=== PATIENT | female | born 1960 | race Caucasian/White ===

== ENCOUNTER 2016-06-17 15:58 | Outpatient (RCR) | payer BC ==
--- OUTSIDE RECORDS SUMMARY | 2016-06-03 08:06 | XMS REPORT | Continuity of Care Document ---
Author Author [facility] Organization [facility] Address Unknown Phone Unavailable Care Team Providers Care Inspector Clip On Sunglasses Name Role Phone Ifrah Curran PCP [phone] Source Comments Some departments are not documenting in the electronic medical record. If you do not see the information that you expected, contact Release of Information in the Health Information Management department at [phone] for further assistance in locating additional records.[facility] Active Allergies and Adverse Reactions Allergen Noted Date Severity Reactions Comments Pneumococcal Vaccine 05/05/2014 UNKNOWN Current Medications Prescription Sig. Disp. Refills Start End Date Status Date omeprazole DR(+) Take 40 mg by mouth Active (PRILOSEC) 40 mg capsule daily. ALPRAZolam (XANAX) 0.25 Take 0.25 mg by mouth at Active mg tablet bedtime as needed. citalopram (CELEXA) 40 mg Take 40 mg by mouth Active tablet daily. insulin glargine (LANTUS) Inject 30 Units into Active 100 unit/mL injection area(s) as directed at bedtime daily. Diltiazem HCl (MATZIM LA) Take by mouth. Active 360 mg Tb24 metFORMIN (GLUCOPHAGE) Take 500 mg by mouth Active 500 mg tablet daily. metoprolol XL (TOPROL XL) Take 100 mg by mouth Active 100 mg tablet daily. valsartan (DIOVAN) 320 mg Take 320 mg by mouth Active tablet daily. aspirin 81 mg chewable Take 81 mg by mouth Active tablet daily. estradiol(+) (MINIVELLE) Apply 1 Patch to top of Active 0.075 mg/24 hr patch skin as directed twice weekly. hydrochlorothiazide Take 25 mg by mouth Active (HYDRODIURIL) 25 mg daily. tablet liraglutide(+) (VICTOZA) Inject 1.8 mg into Active 0.6 mg/0.1 mL (18 mg/3 area(s) as directed mL) pnij daily. Active Problems Not on file Social History Tobacco Use Types Packs/Day Years Used Date Never Smoker Smokeless Tobacco: Never Used Last Filed Vital Signs Vital Sign Reading Time Taken Blood Pressure 130/86 05/10/2014 1:13 PM CYBER SECURITY CONSULTANT Pulse 96 05/10/2014 1:13 PM CYBER SECURITY CONSULTANT Temperature 36.9 C (98.5 F) 05/10/2014 1:10 PM CYBER SECURITY CONSULTANT Respiratory Rate 18 05/10/2014 1:10 PM CYBER SECURITY CONSULTANT Height - - Weight 95.074 kg (209 lb 9.6 oz) 05/10/2014 1:10 PM CYBER SECURITY CONSULTANT Body Mass Index - - Oxygen Saturation - - Plan of Care Health Maintenance Due Date Last Done Comments Physical (Comprehensive) 1969 Exam Pertussis Vaccine 1973 Tetanus Vaccine 11/11/1979 Cervical Cancer Screening 11/11/1983 Breast Cancer Screening 2002 Colorectal Cancer 2012 Screening Influenza Vaccine 12/27/2015 Results from Last 3 Months Not on file
[~2016-06-17 15:58] MED LIST: CALC-722 PO; CITA40TA19 PO; CYAN10007 PO; DILT360T PO; ESTR1PAT81 TD; HYDR25TA4 PO; INSU100I10 SQ; LIRA0.6P SQ; METF500T8 PO; METO100T5 PO; MTF500T PO; OMEP20TA2 PO; OMEP40CA36 PO; PEDI1TAB36 PO; VALS320T8 PO
== END 2016-06-17 16:27 | disposition home or self-care (01) ==
PROVIDERS: ATTEND Orthopaedic Surgery
DX: M75.02 Adhesive capsulitis of left shoulder (principal)

== ENCOUNTER 2017-07-30 16:14 | Outpatient (RCR) | payer BC | END 2017-08-07 13:40 | disposition home or self-care (01) | PROVIDERS: ATTEND Nurse Practitioner Family | DX: Z47.89 Encounter for other orthopedic aftercare (principal); L90.5 Scar conditions and fibrosis of skin ==

== ENCOUNTER 2018-03-09 06:15 | Inpatient (IN) | payer BC ==
[~2018-03-09] VITALS: Ht 167.6 cm; Wt 94.8 kg
--- OUTSIDE RECORDS SUMMARY | 2018-03-09 06:21 | XMS REPORT ---
Author Author CHRISTI Bacon Organization [facility] Address [address] [place] [address] Care Team Providers Care Cabana Attendant Name Role Phone CHRISTI Bacon Unavailable PROBLEMS Type Condition ICD9-CM Code [id number] Code Onset Dates Condition Status SNOMED Code Problem Acquired hypothyroidism E03.9 Active 024329426 Problem Essential hypertension I10 Active [id number] ALLERGIES No Known Allergies ENCOUNTERS Encounter Location Date Diagnosis [facility] [id number] [place] [id number] Jun, Subacute maxillary sinusitis J01.00 and Otalgia of left ear H92.02 [facility] [id number] [place] [phone] May, Cough R05 and Acute non-recurrent maxillary sinusitis J01.00 [facility], [place] [address] [address] Jan, Encounter for immunization Z23 [facility] [place] [id number] [place] [phone] Mar, [place] [id number] [place] [phone] Mar, [place] [id number] [place] [phone] Feb, [place] [address] [phone] Feb, IMMUNIZATIONS Vaccine Route Administration Date Status DEPO MEDROL 80 MG/ML IM Intramuscular Jun 16, 2017 Administered SOCIAL HISTORY Never Assessed REASON FOR VISIT cough [place] EISENBERG PLAN OF CARE Activity Details Follow Up prn Reason: VITAL SIGNS Height 66 in 2017-06-16 Weight 180 lbs 2017-06-16 Temperature 98.2 degrees Fahrenheit 2017-06-16 Heart Rate 78 bpm 2017-06-16 Respiratory Rate 18 2017-06-16 BMI 29.05 kg/m2 2017-06-16 Blood pressure systolic 146 mmHg 2017-06-16 Blood pressure diastolic 78 mmHg 2017-06-16 MEDICATIONS Medication Instructions Dosage Frequency Start Date End Date Duration Status Benzonatate 200 mg Orally Three times a day prn cough 1 capsule May 07 days Active Lipitor Active Levothyroxine Sodium Active Metoprolol-HCTZ ER Active Victoza Active RESULTS No Results PROCEDURES Procedure Date Ordered Result Body Site DEPO MEDROL 80 MG/ML Jun 16, 2017 THER/PROPH/DIAG INJ, SC/IM Jun 16, 2017 INSTRUCTIONS MEDICATIONS ADMINISTERED No Known Medications MEDICAL (GENERAL) HISTORY Type Description Date Medical History hypertension Medical History hypothyroidism Medical History Hx of sinusitis Surgical History Gastric sleeve 2015 Surgical History Hysterectomy 2004 Surgical History Thyroidectomy 2015 Surgical History Gallbladder removal 1989 Surgical History Melanoma 2004
--- OUTSIDE RECORDS SUMMARY | 2018-03-09 06:21 | XMS REPORT | Clinical Summary ---
Author Author [facility] Organization [facility] Address Unknown Phone Unavailable Care Team Providers Care Drier And Grinder Tender Name Role Phone PCP Unavailable Allergies No Known Allergies Current Medications Prescription Sig. Disp. Refills Start End Date Status Date citalopram (CELEXA) 20 MG Take by mouth. 30 09/05/19 Active tablet 15 metoprolol tartrate Take by mouth. 60 09/07/19 Active (LOPRESSOR) 25 MG tablet 15 levothyroxine (SYNTHROID, Take by mouth. 30 06/18/19 Active LEVOTHROID) 100 MCG 15 tablet hydrochlorothiazide Take by mouth. 90 04/03/20 Active (HYDRODIURIL) 25 MG 14 tablet MINIVELLE 0.05 mg/24 hr 11 04/11/20 Active 15 VICTOZA 3-HUGO 0.6 mg/0.1 2 04/18/20 Active mL (18 mg/3 mL) PnIj 15 omega 3 fatty acids Take 1,000 mg by mouth Active 500-100 mg capsule daily. calcium carbonate-vitamin Chew. Active D3 600 mg (1,500 mg)-800 unit Chew metroNIDAZOLE Apply topically 2 (two) 45 g 3 05/28/19 Active (METROCREAM) 0.75 % times a day. 16 creamIndications: Rosacea Active Problems Problem Noted Date Rosacea 05/28/2015 Malignant melanoma of skin of trunk, except scrotum (HCC) 09/13/2014 Benign neoplasm of skin 09/13/2014 Overview: ICD-10 conversion Actinic keratosis 09/13/2014 Family History Medical History Relation Name Comments Cancer Father Melanoma Relation Name Status Comments Father Social History Tobacco Use Types Packs/Day Years Used Date Never Smoker Sex Assigned at Date Recorded Not on file Last Filed Vital Signs Vital Sign Reading Time Taken Blood Pressure 140/89 09/13/2014 1:52 PM CDT Pulse 85 09/13/2014 1:52 PM CDT Temperature - - Respiratory Rate - - Oxygen Saturation - - Inhaled Oxygen - - Concentration Weight 81.2 kg (179 lb) 09/13/2014 1:52 PM CDT Height 167.6 cm (5' 6") 09/13/2014 1:52 PM CDT Body Mass Index 28.89 09/13/2014 1:52 PM CDT Plan of Treatment Health Maintenance Due Date Last Done Comments Hepatitis C Screen 1962 Td # 1962 Pneumococcal Immunization 1981 19-64 Highest Risk# (1 of 3 - PCV13) Cervical Cancer Screening 11/11/1983 via Pap Smear Colorectal Screening via 2012 Colonoscopy Mammogram Screening 2012 Zoster Vaccine# (1 of 2) 2012 Influenza Vaccine (#1) 2018 Results Not on filefrom Last 3 Months
--- OUTSIDE RECORDS SUMMARY | 2018-03-09 06:21 | XMS REPORT | Clinical Summary ---
Author Author [facility] Organization [facility] Address Unknown Phone Unavailable Care Team Providers Care Rhinestone Setter Name Role Phone Torrey Mccabe MD Unavailable Eleonora Curran MD PCP Source Comments Some departments are not documenting in the electronic medical record. If you do not see the information that you expected, contact Release of Information in the Health Information Management department at [phone] for further assistance in locating additional records.[facility] Allergies Active Allergy Reactions Severity Noted Date Comments Pneumococcal Vaccine UNKNOWN 05/05/2014 Current Medications Prescription Sig. Disp. Refills Start [...] pnij daily. Active Problems Not on file Family History Medical History Relation Name Comments Cancer Father Diabetes Father Hypertension Father Cancer Maternal Grandfather Diabetes Maternal Grandfather Hypertension Maternal Grandfather Diabetes Mother Hypertension Mother Hypertension Sister Relation Name Status Comments Father Maternal Grandfather Mother Sister Social History Tobacco Use Types Packs/Day Years Used Date Never Smoker Smokeless Tobacco: Never Used Sex Assigned at Date Recorded Not on file Last Filed Vital Signs Vital Sign Reading Time Taken Blood Pressure 130/86 05/10/2014 1:13 PM COMMERCIAL FISHING VESSEL OPERATOR Pulse 96 05/10/2014 1:13 PM COMMERCIAL FISHING VESSEL OPERATOR Temperature 36.9 C (98.5 F) 05/10/2014 1:10 PM COMMERCIAL FISHING VESSEL OPERATOR Respiratory Rate 18 05/10/2014 1:10 PM COMMERCIAL FISHING VESSEL OPERATOR Oxygen Saturation - - Inhaled Oxygen - - Concentration Weight 95.1 kg (209 lb 9.6 oz) 05/10/2014 1:10 PM COMMERCIAL FISHING VESSEL OPERATOR Height - - Body Mass Index - - Plan of Treatment Health Maintenance Due Date Last Done Comments HEPATITIS C SCREENING 1962 PHYSICAL (COMPREHENSIVE) 1969 EXAM PERTUSSIS VACCINE 1973 HIV SCREENING 1977 TETANUS VACCINE 11/11/1979 CERVICAL CANCER SCREENING 1992 BREAST CANCER SCREENING 2002 COLORECTAL CANCER 2012 SCREENING SHINGLES RECOMBINANT 2012 VACCINE (1 of 2) INFLUENZA VACCINE 11/25/2017 Results Not on filefrom Last 3 Months
--- OUTSIDE RECORDS SUMMARY | 2018-03-09 06:21 | XMS REPORT ---
Author Author CHRISTI Bacon [facility] Address [address] [place] [address] Care Team Providers Care Postie Name Role Phone CHRISTI Bacon Unavailable PROBLEMS Type Condition ICD9-CM Code [id number] Code Onset Dates Condition Status SNOMED Code Problem Acquired hypothyroidism E03.9 Active 274510936 Problem Essential hypertension I10 Active [id number] ALLERGIES No Known Allergies ENCOUNTERS Encounter Location Date Diagnosis [facility] [place] [address] [id number] Jun, Subacute maxillary sinusitis J01.00 and Otalgia of left ear H92.02 [facility] [place] [id number] [place] [id number] May, Cough R05 and Acute non-recurrent maxillary sinusitis J01.00 [place] [address] [address] Jan, Encounter for immunization Z23 [facility] [id number] [place] [phone] Mar, [place] [id number] [place] [phone] Mar, [place] [id number] [place] [phone] Feb, [place] [address] [address] Feb, IMMUNIZATIONS No Known Immunizations SOCIAL HISTORY Never Assessed REASON FOR VISIT sinus congestion-[place] EISENBERG PLAN OF CARE Activity Details Follow Up prn Reason: VITAL SIGNS Height 66 in 2017-07-03 Weight 189.4 lbs 2017-07-03 Temperature 98.1 degrees Fahrenheit 2017-07-03 Heart Rate 80 bpm 2017-07-03 Respiratory Rate 18 2017-07-03 BMI 30.57 kg/m2 2017-07-03 Blood pressure systolic 164 mmHg 2017-07-03 Blood pressure diastolic 97 mmHg 2017-07-03 MEDICATIONS Medication Instructions Dosage Frequency Start Date End Date Duration Status Biaxin XL 500 mg Orally twice a day 1tablets with food 12h Jun, Jun, 14 days Active Wellbutrin Active Levothyroxine Sodium Active Metoprolol-HCTZ ER Active Lipitor Active Victoza Active PredniSONE 20 mg Orally Once a day with food 3 tablets x 3 days, 2 tablets x 3 days, then 1 tab x 2 days 8 days Active RESULTS No Results PROCEDURES No Known procedures INSTRUCTIONS MEDICATIONS ADMINISTERED No Known Medications MEDICAL (GENERAL) HISTORY Type Description Date Medical History hypertension Medical History hypothyroidism Medical History Hx of sinusitis Surgical History Gastric sleeve 2015 Surgical History Hysterectomy 2004 Surgical History Thyroidectomy 2015 Surgical History Gallbladder removal 1989 Surgical History Melanoma 2004
--- OUTSIDE RECORDS SUMMARY | 2018-03-09 06:22 | XMS REPORT ---
Author Author LENNIE PACHECO Organization [facility] Address [address] [place] [address] Care Team Providers Care Wire Taper Name Role Phone LENNIE PACHECO Unavailable PROBLEMS Type Condition ICD9-CM Code [id number] Code Onset Dates Condition Status SNOMED Code Problem Acquired hypothyroidism E03.9 Active 544424845 Problem Essential hypertension I10 Active 02015997 ALLERGIES No Information ENCOUNTERS Encounter Location Date Diagnosis [facility] [address] [id number] Jun, Subacute maxillary sinusitis J01.00 and Otalgia of left ear H92.02 [facility] [address] [id number] May, Cough R05 and Acute non-recurrent maxillary sinusitis J01.00 [place] [address] [address] Jan, Encounter for immunization Z23 [place] [address] [address] Mar, [place] [address] [phone] Mar, [place] [address] [phone] Feb, [place] [address] [address] Feb, IMMUNIZATIONS Vaccine Route Administration Date Status FLUARIX QUAD (3 AND UP) 2017 IM Intramuscular Feb 04, 2017 Administered ZOSTER (ZOSTAVAX) SC Subcutaneous Feb 04, 2017 Administered SOCIAL HISTORY Never Assessed REASON FOR VISIT Immunization(s) PLAN OF CARE VITAL SIGNS MEDICATIONS No Known Medications RESULTS No Results PROCEDURES Procedure Date Ordered Result Body Site FLUARIX QUAD (3 & UP)-GSK-2015 Feb 04, 2017 ZOSTER (ZOSTAVAX) Feb 04, 2017 IMMUNIZATION ADMIN, EACH ADD (please include units) Feb 04, 2017 SINGLE IMMUNIZATION ADMIN Feb 04, 2017 INSTRUCTIONS MEDICATIONS ADMINISTERED No Known Medications MEDICAL (GENERAL) HISTORY Type Description Date Medical History hypertension Medical History hypothyroidism Medical History Hx of sinusitis Surgical History Gastric sleeve 2015 Surgical History Hysterectomy 2004 Surgical History Thyroidectomy 2015 Surgical History Gallbladder removal 1989 Surgical History Melanoma 2004
--- OUTSIDE RECORDS SUMMARY | 2018-03-09 06:27 | XMS REPORT | CCD ---
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 Name Role Phone PP Unavailable CCM Unavailable Summary Purpose Interface Exchange Insurance Providers Payer name Policy type / Coverage type Covered alliance party ID Effective Begin Date Effective End Date Blue Cross Blue [facility] Blue Cross/Blue [facility] [id number] Unknown Family history Son Diagnosis Age At Onset No Family Disease Entered N/A Sister Diagnosis Age At Onset No Family Disease Entered N/A Father Diagnosis Age At Onset No Family Disease Entered N/A Mother Diagnosis Age At Onset No Family Disease Entered N/A Daughter Diagnosis Age At Onset No Family Disease Entered N/A Social History Social History Element Codes Description Effective Dates Employment Unknown 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 Unknown Has never used illegal drugs 05/21/2012 Allergies, Adverse Reactions, Alerts Substance Reaction Codes Entered Date Inactivated Date Status * NO KNOWN ENVIRONMENTAL ALLERGIES Unknown 05/21/2012 No Inactive Date Active * NO KNOWN FOOD ALLERGIES Unknown 05/21/2012 No Inactive Date Active ciprofloxacin hives RxNorm: 14766 11/22/2014 No Inactive Date Active PNEUMOCOCCAL VACCINE diarrhea Unknown 05/21/2012 No Inactive Date Active promethazine confusion RxNorm: 8745 11/14/2014 No Inactive Date Active Past Medical History Illness Codes Condition Status Onset Date Resolved Date Actinic keratosis ICD- 9: 702.0 ICD-10: L57.0 Active 02/22/2018 Unknown Generalized anxiety disorder ICD-9: 300.02 ICD-10: F41.1 Active 06/08/2017 Unknown Major depressive disorder, single episode, moderate ICD-9: 296.22 ICD-10: F32.1 Active 06/08/2017 Unknown Other acute sinusitis ICD-9: 461.8 ICD-10: J01.80 Active 02/22/2018 Unknown Other allergic rhinitis ICD-9: 477.8 ICD-10: J30.89 Active 10/01/2017 Unknown Pain in left forearm ICD-9: 729.5 ICD-10: M79.632 Active 02/22/2018 Unknown Other specified hypothyroidism ICD-9: 244.8 ICD-10: E03.8 Active 01/07/2018 Unknown Type 2 diabetes mellitus with hyperglycemia ICD-9: 250.02 ICD-10: E11.65 Active 10/10/2013 Unknown VACCIN FOR INFLUENZA ICD-9: V04.81 ICD-10: Z23 Active 01/05/2014 Unknown Essential (primary) hypertension ICD-9: 401.1 ICD-10: I10 Active 01/06/2016 Unknown Hypothyroidism, unspecified ICD-9: 244.9 ICD-10: E03.9 Active 01/31/2016 Unknown Mixed hyperlipidemia ICD-9: 272.2 ICD-10: E78.2 Active 08/11/2016 Unknown Type 2 diabetes mellitus without complications ICD-9: 250.00 ICD-10: E11.9 Active 04/11/2014 Unknown Hypothryroidism Unknown Active 11/12/2016 Unknown Encounter for general adult medical examination without abnormal findings ICD-9: V70.0 ICD-10: Z00.00 Active 11/12/2016 Unknown Acute upper respiratory infection, unspecified ICD-9: 465.9 ICD-10: J06.9 Active 09/16/2016 Unknown Allergic rhinitis due to pollen ICD-9: 477.0 ICD-10: J30.1 Active 09/16/2016 Unknown Functional diarrhea ICD-9: 564.5 ICD-10: K59.1 Active 08/11/2016 Unknown Essential (primary) hypertension ICD-9: 401.9 ICD-10: I10 Active 01/31/2016 Unknown Cramp and spasm ICD-9 : 729.82 ICD-10: R25.2 Active 03/30/2016 Unknown Nausea ICD-9: 787.02 ICD-10: R11.0 Active 03/30/2016 Unknown Cough ICD-9: 786.2 ICD-10: R05 Active 01/31/2016 Unknown Gastro-esophageal reflux disease without esophagitis ICD-9: 530.81 ICD-10: K21.9 Active 01/31/2016 Unknown Acute bronchitis, unspecified ICD-9: 466.0 ICD-10: J20.9 Active 01/21/2016 Unknown Dysphagia, pharyngeal phase ICD-9: 787.23 ICD-10: R13.13 Active 01/06/2016 Unknown Pain in right knee ICD -9: 719.46 ICD-10: M25.561 Active 12/02/2015 Unknown 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] ICD-9: V45.89 ICD-10: Z90.3 Active 11/13/2014 Unknown Paresthesia of skin ICD-9: 782.0 ICD-10: R20.2 Active 05/28/2015 Unknown Mixed hyperlipidemia ICD-9: 272.4 ICD-10: E78.2 Active 06/14/2012 Unknown Other obesity ICD-9: 278.00 ICD-10: E66.8 Active 10/10/2013 Unknown ESOPHAGEAL REFLUX ICD- 9: 530.81 Active 09/03/2014 Unknown ALLERGIC URTICARIA ICD -9: 708.0 Active 11/21/2014 Unknown Abdominal pain ICD-9: 789.00 Active 11/13/2014 Unknown Status post gastric surgery ICD-9: V45.89 Active 11/13/2014 Unknown Diabetes mellitus, type II ICD-9: 250.00 Active 04/11/2014 Unknown ESSENTIAL HYPERTENSION ICD-9: 401.9 Active 10/10/2013 Unknown OBESITY ICD-9: 278.00 Active 10/10/2013 Unknown Decreased renal function ICD-9: 593.9 Active 04/11/2014 Unknown Thyroid nodule ICD-9: 241.0 Active 04/11/2014 Unknown Chronic diarrhea ICD-9 : 787.91 Active 01/05/2014 Unknown DM W/O COMPLICATION TYPE II, UNCONTROLLED ICD-9: 250.02 Active 10/10/2013 Unknown Generalized anxiety disorder ICD-9: 300.02 Active 10/10/2013 Unknown INSOMNIA NOS ICD-9: 780.52 Active 08/02/2013 Unknown Shoulder pain, right ICD-9: 719.41 Active 08/02/2013 Unknown Acute bronchitis ICD-9 : 466.0 Active 02/21/2013 Unknown Myalgia ICD-9: 729.1 Active 02/21/2013 Unknown Dietary counseling and surveillance ICD-9: V65.3 Active 2012 Unknown Hyperlipidemia ICD-9: 272.4 Active 06/14/2012 Unknown Depression Unknown Active 05/21/2012 Unknown Diabetes Unknown Active 05/21/2012 Unknown Hyperlipidemia Unknown Active 05/21/2012 Unknown Hypertension Unknown Active 05/21/2012 Unknown Melanoma Unknown Active 05/21/2012 Unknown COUGH ICD-9: 786.2 Active 05/21/2012 Unknown FEVER NOS ICD-9: 780.60 Active 05/21/2012 Unknown Influenza ICD-9: 487.1 Active 05/21/2012 Unknown Problems Condition Codes Effective Dates Condition Status Actinic keratosis ICD- 9: 702.0 ICD-10: L57.0 02/22/2018 Active Generalized anxiety disorder ICD-9: 300.02 ICD-10: F41.1 06/08/2017 Active Major depressive disorder, single episode, moderate ICD-9: 296.22 ICD-10: F32.1 06/08/2017 Active Other acute sinusitis ICD-9: 461.8 ICD-10: J01.80 02/22/2018 Active Other allergic rhinitis ICD-9: 477.8 ICD-10: J30.89 10/01/2017 Active Pain in left forearm ICD-9: 729.5 ICD-10: M79.632 02/22/2018 Active Other specified hypothyroidism ICD-9: 244.8 ICD-10: E03.8 01/07/2018 Active Type 2 diabetes mellitus with hyperglycemia ICD-9: 250.02 ICD-10: E11.65 10/10/2013 Active VACCIN FOR INFLUENZA ICD-9: V04.81 ICD-10: Z23 01/05/2014 Active Essential (primary) hypertension ICD-9: 401.1 ICD-10: I10 01/06/2016 Active Hypothyroidism, unspecified ICD-9: 244.9 ICD-10: E03.9 01/31/2016 Active Mixed hyperlipidemia ICD-9: 272.2 ICD-10: E78.2 08/11/2016 Active Type 2 diabetes mellitus without complications ICD-9: 250.00 ICD-10: E11.9 04/11/2014 Active Hypothryroidism Unknown 11/12/2016 Active Encounter for general adult medical examination without abnormal findings ICD-9: V70.0 ICD-10: Z00.00 11/12/2016 Active Acute upper respiratory infection, unspecified ICD-9: 465.9 ICD-10: J06.9 09/16/2016 Active Allergic rhinitis due to pollen ICD-9: 477.0 ICD-10: J30.1 09/16/2016 Active Functional diarrhea ICD-9: 564.5 ICD-10: K59.1 08/11/2016 Active Essential (primary) hypertension ICD-9: 401.9 ICD-10: I10 01/31/2016 Active Cramp and spasm ICD-9 : 729.82 ICD-10: R25.2 03/30/2016 Active Nausea ICD-9: 787.02 ICD-10: R11.0 03/30/2016 Active Cough ICD-9: 786.2 ICD-10: R05 01/31/2016 Active Gastro-esophageal reflux disease without esophagitis ICD-9: 530.81 ICD-10: K21.9 01/31/2016 Active Acute bronchitis, unspecified ICD-9: 466.0 ICD-10: J20.9 01/21/2016 Active Dysphagia, pharyngeal phase ICD-9: 787.23 ICD-10: R13.13 01/06/2016 Active Pain in right knee ICD -9: 719.46 ICD-10: M25.561 12/02/2015 Active 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] ICD-9: V45.89 ICD-10: Z90.3 11/13/2014 Active Paresthesia of skin ICD-9: 782.0 ICD-10: R20.2 05/28/2015 Active Mixed hyperlipidemia ICD-9: 272.4 ICD-10: E78.2 06/14/2012 Active Other obesity ICD-9: 278.00 ICD-10: E66.8 10/10/2013 Active ESOPHAGEAL REFLUX ICD- 9: 530.81 09/03/2014 Active ALLERGIC URTICARIA ICD -9: 708.0 11/21/2014 Active Abdominal pain ICD-9: 789.00 11/13/2014 Active Status post gastric surgery ICD-9: V45.89 11/13/2014 Active Diabetes mellitus, type II ICD-9: 250.00 04/11/2014 Active ESSENTIAL HYPERTENSION ICD-9: 401.9 10/10/2013 Active OBESITY ICD-9: 278.00 10/10/2013 Active Decreased renal function ICD-9: 593.9 04/11/2014 Active Thyroid nodule ICD-9: 241.0 04/11/2014 Active Chronic diarrhea ICD-9 : 787.91 01/05/2014 Active DM W/O COMPLICATION TYPE II, UNCONTROLLED ICD-9: 250.02 10/10/2013 Active Generalized anxiety disorder ICD-9: 300.02 10/10/2013 Active INSOMNIA NOS ICD-9: 780.52 08/02/2013 Active Shoulder pain, right ICD-9: 719.41 08/02/2013 Active Acute bronchitis ICD-9 : 466.0 02/21/2013 Active Myalgia ICD-9: 729.1 02/21/2013 Active Dietary counseling and surveillance ICD-9: V65.3 12/13/2012 Active Hyperlipidemia ICD-9: 272.4 06/14/2012 Active Depression Unknown 05/21/2012 Active Diabetes Unknown 05/21/2012 Active Hyperlipidemia Unknown 05/21/2012 Active Hypertension Unknown 05/21/2012 Active Melanoma Unknown 05/21/2012 Active COUGH ICD-9: 786.2 05/21/2012 Active FEVER NOS ICD-9: 780.60 05/21/2012 Active Influenza ICD-9: 487.1 05/21/2012 Active Medications Medication Codes Instructions Start Date Stop Date Status Fill Instructions Prozac 40 mg capsule RxNorm: 510690 1 Capsule(s) PO daily 03/0504/03/2018 Active Prozac 40 mg capsule RxNorm: 363299 1 Capsule(s) PO daily 03/0503/04/2018 Inactive amoxicillin 500 mg capsule RxNorm: 964652 1 Capsule(s) PO TID 02/22/2018 02/28/2018 Inactive Kenalog 40 mg/mL suspension for injection RxNorm: 7384077 Milliliter(s) Inj 02/22/2018 02/22/2018 Inactive Prozac 20 mg capsule RxNorm: 276052 1 Capsule(s) PO daily 02/2203/01/2018 Inactive Diflucan 150 mg tablet RxNorm: 355182 1 Tablet(s) PO daily 02/26/2018 Inactive levothyroxine 88 mcg tablet RxNorm: 870223 TAKE 1 TABLET BY MOUTH ONCE DAILY 02/15/2018 No Stop Date Active Cymbalta 60 mg capsule,delayed release RxNorm: 015126 TAKE 1 CAPSULE BY MOUTH ONCE DAILY 02/15/2018 No Stop Date Active Diflucan 150 mg tablet RxNorm: 799054 1 Tablet(s) PO daily No Stop Date Active Xultophy 100/3.6 100 unit-3.6 mg/mL (3 mL) subcutaneous insulin pen RxNorm: 3207994 30 Unit(s) SQ daily 01/07/20182017 Inactive Xultophy 100/3.6 100 unit-3.6 mg/mL (3 mL) subcutaneous insulin pen RxNorm: 4118325 22 Unit(s) SQ daily 12/03/20172017 Inactive Xultophy 100/3.6 100 unit-3.6 mg/mL (3 mL) subcutaneous insulin pen RxNorm: 8892753 20 Unit(s) SQ daily 11/27/20172017 Inactive Xultophy 100/3.6 100 unit-3.6 mg/mL (3 mL) subcutaneous insulin pen RxNorm: 7199293 20 Unit(s) SQ daily 11/27/20172017 Inactive Xultophy 100/3.6 100 unit-3.6 mg/mL (3 mL) subcutaneous insulin pen RxNorm: 0759601 16 Unit(s) SQ daily 10/26/20172017 Inactive Xultophy 100/3.6 100 unit-3.6 mg/mL (3 mL) subcutaneous insulin pen RxNorm: 1132036 16 Unit(s) SQ daily 10/26/20172017 Inactive potassium chloride ER 10 mEq tablet,extended release RxNorm: 404955 1 Tablet(s) PO TIW 10/21/2017 10/15/2018 Active Diflucan 150 mg tablet RxNorm: 694292 TAKE ONE TABLET BY MOUTH ONCE DAILY 10/21/2017 01/06/2018 Inactive Cymbalta 60 mg capsule,delayed release RxNorm: 729908 1 Capsule(s) PO daily 10/07/2017 02/03/2018 Inactive potassium chloride ER 10 mEq tablet,extended release RxNorm: 375209 TAKE ONE TABLET BY MOUTH TWICE A WEEK 10/07/2017 Inactive Lipitor 20 mg tablet RxNorm: 239531 TAKE ONE TABLET BY MOUTH ONCE DAILY IN THE EVENING 09/04/2017 No Stop Date Active metoprolol succinate ER 50 mg tablet,extended release 24 hr RxNorm: 798063 TAKE ONE TABLET BY MOUTH ONCE DAILY 09/04/2017 No Stop Date Active Victoza 3-To 0.6 mg/0.1 mL (18 mg/3 mL) subcutaneous pen injector RxNorm: 624944 Milligram(s) SQ 09/02/2017 05/24/2019 Active Diflucan 150 mg tablet RxNorm: 069878 TAKE ONE TABLET BY MOUTH ONCE DAILY 09/02/2017 10/20/2017 Inactive potassium chloride ER 10 mEq tablet,extended release RxNorm: 347500 TAKE ONE TABLET BY MOUTH TWICE A WEEK 08/10/2017 Inactive levothyroxine 88 mcg tablet RxNorm: 147645 TAKE ONE TABLET BY MOUTH ONCE DAILY 08/10/2017 02/14/2018 Inactive Diflucan 150 mg tablet RxNorm: 748269 1 Tablet(s) PO daily 07/20/2017 Inactive Diflucan 150 mg tablet RxNorm: 994448 1 Tablet(s) PO daily 07/09/2017 Inactive Cymbalta 60 mg capsule,delayed release RxNorm: 139294 1 Capsule(s) PO daily 07/10/2017 07/09/2017 Inactive Cymbalta 60 mg capsule,delayed release RxNorm: 758522 1 Capsule(s) PO daily 07/10/2017 10/06/2017 Inactive Diflucan 150 mg tablet RxNorm: 124287 1 Tablet(s) PO daily 07/14/2017 Inactive Wellbutrin XL 150 mg 24 hr tablet, extended release RxNorm: 503105 1 Tablet(s) PO daily 06/08/2017 07/09/2017 Inactive Victoza 3-To 0.6 mg/0.1 mL (18 mg/3 mL) subcutaneous pen injector RxNorm: 988896 Milligram(s) SQ 06/08/2017 09/01/2017 Inactive Initiate at 0.6 mg per day for one week then increase to 1.2 mg. Dispense qty sufficient hydrochlorothiazide 25 mg tablet RxNorm: 066586 TAKE ONE TABLET BY MOUTH ONCE DAILY 05/25/2017 No Stop Date Active citalopram 40 mg tablet RxNorm: 820945 TAKE ONE TABLET BY MOUTH ONCE DAILY 05/13/2017 07/09/2017 Inactive potassium chloride ER 10 mEq tablet,extended release RxNorm: 465957 TAKE ONE TABLET BY MOUTH TWICE A WEEK 03/25/2017 Inactive hydrochlorothiazide 25 mg tablet RxNorm: 622711 TAKE ONE TABLET BY MOUTH ONCE DAILY 02/23/2017 05/24/2017 Inactive levothyroxine 88 mcg tablet RxNorm: 892787 TAKE ONE TABLET BY MOUTH ONCE DAILY 01/28/2017 07/26/2017 Inactive Trulicity 1.5 mg/0.5 mL subcutaneous pen injector RxNorm: 1366261 INJECT ONE SYRINGE SUBCUTANEOUSLY ONCE A WEEK 01/27/2017 07/09/2017 Inactive Diflucan 150 mg tablet RxNorm: 840159 1 Tablet(s) PO daily 12/31/2016 Inactive Invokana 100 mg tablet RxNorm: 3669857 1 Tablet(s) PO daily 11/201602/03/2017 Inactive Invokana 100 mg tablet RxNorm: 8572930 1 Tablet(s) PO daily 11/201612/01/2016 Inactive potassium chloride ER 10 mEq tablet,extended release RxNorm: 207482 1 Tablet(s) PO BIW 11/17/2016 11/16/2016 Inactive metformin 500 mg tablet RxNorm: 767213 1 Tablet(s) PO BID 11/1712/01/2016 Inactive potassium chloride ER 10 mEq tablet,extended release RxNorm: 457942 1 Tablet(s) PO BIW 11/17/2016 11/16/2016 Inactive potassium chloride ER 10 mEq tablet,extended release RxNorm: 993975 1 Tablet(s) PO 2 times weekly 11/17/2016 10/06/2017 Inactive Diflucan 150 mg tablet RxNorm: 249920 1 Tablet(s) PO daily 09/18/2016 Inactive Diflucan 150 mg tablet RxNorm: 425803 1 Tablet(s) PO daily 09/23/2016 Inactive amoxicillin 500 mg tablet RxNorm: 116557 1 Tablet(s) PO BID 09/25/2016 Inactive metoprolol succinate ER 50 mg tablet,extended release 24 hr RxNorm: 273335 Tablet (s) TAKE ONE TABLET BY MOUTH ONCE DAILY 08/11/2016 08/05/2017 Inactive Lipitor 20 mg tablet RxNorm: 204414 1 Tablet(s) PO QPM 201609/03/2017 Inactive Questran Light 4 gram oral powder RxNorm: 7498430 1 PO TID 05/25/2017 Inactive Trulicity 1.5 mg/0.5 mL subcutaneous pen injector RxNorm: 4002319 0.5 Milliliter(s ) SQ QW 08/11/2016 01/07/2017 Inactive levothyroxine 88 mcg tablet RxNorm: 662403 TAKE ONE TABLET BY MOUTH ONCE DAILY 07/28/2016 01/23/2017 Inactive Trulicity 0.75 mg/0.5 mL subcutaneous pen injector RxNorm: 7041435 INJECT THREE- FOURTHS MG(S) SUBCUTANEOUSLY ONCE A WEEK 07/01/2016 08/10/2016 Inactive metoprolol succinate ER 50 mg tablet,extended release 24 hr RxNorm: 032939 TAKE ONE TABLET BY MOUTH ONCE DAILY 06/11/2016 08/09/2016 Inactive citalopram 40 mg tablet RxNorm: 656969 TAKE ONE TABLET BY MOUTH ONCE DAILY 04/14/2016 05/12/2017 Inactive Diflucan 150 mg tablet RxNorm: 199236 1 Tablet(s) PO daily 01/24/2016 Inactive hydrochlorothiazide 25 mg tablet RxNorm: 075859 Tablet(s) 1 TABLET(S) PO DAILY 01/25/2016 01/18/2017 Inactive Diflucan 150 mg tablet RxNorm: 040280 1 Tablet(s) PO daily 01/31/2016 Inactive Zithromax Z-To 250 mg tablet RxNorm: 674285 1 Tablet(s) PO daily 01/24/2016 01/23/2016 Inactive zpack Zithromax Z-To 250 mg tablet RxNorm: 560746 1 Tablet(s) PO daily 01/24/2016 01/28/2016 Inactive zpack prednisone 10 mg tablets in a dose pack RxNorm: 681264 1 Tablet(s) PO as directed 01/24/2016 01/31/2016 Inactive 6-5-4-3-2-1 Kenalog 40 mg/mL suspension for injection RxNorm: 5649218 Milliliter(s) Inj 01/22/2016 01/22/2016 Inactive prednisone 20 mg tablet RxNorm: 586520 2 Tablet(s) PO daily 01/24/2016 Inactive start tomorrow Trulicity 0.75 mg/0.5 mL subcutaneous pen injector RxNorm: 5041994 0.75 Milligram( s) SQ QW 01/18/2016 06/30/2016 Inactive levothyroxine 88 mcg tablet RxNorm: 941540 TAKE ONE TABLET BY MOUTH ONCE DAILY 01/17/2016 07/14/2016 Inactive Trulicity 0.75 mg/0.5 mL subcutaneous pen injector RxNorm: 1185356 0.75 Milligram( s) SQ QW 12/03/2015 01/01/2016 Inactive Vimovo 500 mg-20 mg tablet,immediate and delay release RxNorm: 338682 1 Tablet(s) PO BID 12/03/2015 03/30/2016 Inactive metoprolol succinate ER 50 mg tablet,extended release 24 hr RxNorm: 497689 1 Tablet(s) PO daily 10/23/2015 05/19/2016 Inactive Trulicity 0.75 mg/0.5 mL subcutaneous pen injector RxNorm: 2967526 0.75 Milligram( s) SQ QW 09/17/2015 10/16/2015 Inactive Victoza 3-To 0.6 mg/0.1 mL (18 mg/3 mL) subcutaneous pen injector RxNorm: 754641 1.8 MILLIGRAM(S) SQ DAILY 07/16/201509/15 Inactive this is just a correction of her current dosing - she does not need a refill levothyroxine 88 mcg tablet RxNorm: 000407 1 TABLET(S) PO DAILY 07/16/2015 01/11/2016 Inactive metoprolol succinate ER 50 mg tablet,extended release 24 hr RxNorm: 715139 1 Tablet(s) PO daily 05/29/2015 10/22/2015 Inactive levothyroxine 88 mcg tablet RxNorm: 532327 1 Tablet(s) PO daily 04/17/2015 07/15/2015 Inactive levothyroxine 88 mcg tablet RxNorm: 636097 1 Tablet(s) PO daily 04/17/2015 04/16/2015 Inactive citalopram 40 mg tablet RxNorm: 232259 1 Tablet(s) PO daily 04/13/2016 Inactive metoprolol tartrate 25 mg tablet RxNorm: 777177 1 Tablet(s) BID 01/17/2015 05/28/2015 Inactive hydrochlorothiazide 25 mg tablet RxNorm: 693096 1 TABLET(S) PO DAILY 01/01/2015 12/26/2015 Inactive Kenalog 40 mg/mL suspension for injection RxNorm: 2607256 Milliliter(s) Inj 11/23/2014 11/23/2014 Inactive Kenalog 40 mg/mL suspension for injection RxNorm: 2811453 60 Milliliter(s) Inj 11/22/2014 11/22/2014 Inactive Zyrtec 10 mg tablet RxNorm: 8296717 1 Tablet(s) PO daily 11/2212/21/2014 Inactive prednisone 10 mg tablets in a dose pack RxNorm: 677371 1 Tablet(s) PO as directed 11/22/2014 05/28/2015 Inactive 6-5-4-3-2-1 Flagyl 500 mg tablet RxNorm: 064025 1 Tablet(s) PO TID 201411/20/2014 Inactive metoprolol tartrate 25 mg tablet RxNorm: 806190 1 Tablet(s) PO BID 09/06/2014 08/10/2016 Inactive metoprolol tartrate 25 mg tablet RxNorm: 696851 1 TABLET(S) PO BID PT TO START WITH 1/2 PILL TWICE DAILY X 1 WEEK, THEN INCREASE TO 1 PILL BID THEREAFTER 09/06/2014 01/16/2015 Inactive citalopram 20 mg tablet RxNorm: 707435 1 Tablet(s) PO daily 02/201503/13/2015 Inactive Victoza 3-To 0.6 mg/0.1 mL (18 mg/3 mL) subcutaneous pen injector RxNorm: 727537 1.8 MILLIGRAM(S) SQ DAILY 09/04/201405/31 Inactive this is just a correction of her current dosing - she does not need a refill metoprolol tartrate 25 mg tablet RxNorm: 166454 1 Tablet(s) PO BID pt to start with 1/2 pill twice daily x 1 week, then increase to 1 pill bid thereafter 08/04/2014 09/02/2014 Inactive Lantus Solostar 100 unit/mL (3 mL) subcutaneous insulin pen RxNorm: 013052 Unit( s) INJECT 10 UNITS SUBCUTANEOUSLY DAILY. DOCTOR WILL ADJUST MEDICATION BASED ON BLOOD GLUCOSE LEVELS 08/04/20142014 Inactive hydrochlorothiazide 25 mg tablet RxNorm: 779255 1 TABLET(S) PO DAILY 07/12/2014 01/24/2016 Inactive hydrochlorothiazide 25 mg tablet RxNorm: 035419 1 Tablet(s) PO daily 07/12/2014 12/31/2014 Inactive acyclovir 400 mg tablet RxNorm: 781981 1 Tablet(s) PO QID 05/0905/08/2014 Inactive acyclovir 400 mg tablet RxNorm: 307033 1 Tablet(s) PO QID 05/0905/15/2014 Inactive alprazolam 0.25 mg tablet RxNorm: 764979 TAKE 1 TABLET BY MOUTH TWICE DAILY NEEDED FOR ANXIETY 04/24/2014 05/23/2014 Inactive (Response to an electronic controlled substance refill request - RxReferenceNumber: [id number]|1|0|1) metoprolol succinate ER 100 mg tablet,extended release 24 hr RxNorm: 865824 1 TABLET(S) PO DAILY TAKE 1 TABLET BY MOUTH DAILY 04/24/2014 08/03/2014 Inactive Cardizem LA 360 mg tablet,extended release RxNorm: 075998 1 TABLET(S) PO DAILY TAKE 1 TABLET BY MOUTH DAILY 04/24/2014 Inactive metformin ER 500 mg 24 hr tablet,extended release RxNorm: 368242 1 Tablet(s) PO daily 04/11/2014 08/03/2014 Inactive Lantus Solostar 100 unit/mL (3 mL) subcutaneous insulin pen RxNorm: 864716 INJECT 40 UNITS SUBCUTANEOUSLY DAILY. DOCTOR WILL ADJUST MEDICATION BASED ON BLOOD GLUCOSE LEVELS 03/20/20142014 Inactive Bentyl 10 mg capsule RxNorm: 557339 1 Capsule(s) PO TID PRN 02/201405/28/2015 Inactive potassium chloride ER 10 mEq tablet,extended release RxNorm: 175101 1 Tablet(s) PO daily 01/05/2014 01/11/2014 Inactive Lantus Solostar 100 unit/mL (3 mL) subcutaneous insulin pen RxNorm: 288136 45 Unit(s) SQ daily doctor to adjust medications based on blood glucose results 01/05/2014 12/02/2015 Inactive Diovan 320 mg tablet RxNorm: 920377 1 Tablet(s) PO daily 201308/03/2014 Inactive metformin ER 1,000 mg tablet,extended release 24hr RxNorm: 049319 1 Tablet(s) PO daily 10/26/2013 04/10/2014 Inactive Lantus Solostar 100 unit/mL (3 mL) subcutaneous insulin pen RxNorm: 874547 40 Unit(s) SQ daily doctor to adjust medications based on blood glucose results 10/10/2013 01/04/2014 Inactive alprazolam 0.25 mg tablet RxNorm: 441172 1 Tablet(s) PO BID 04/24/2014 Inactive Percocet 5 mg-325 mg tablet RxNorm: 2410962 1-2 Tablet(s) PO Q6 PRN 10/03/2013 05/28/2015 Inactive Celexa 40 mg tablet RxNorm: 031157 Tablet(s) PO TAKE 1 TABLET BY MOUTH DAILY 09/28/2013 09/03/2014 Inactive hydrochlorothiazide 25 mg tablet RxNorm: 118220 1 Tablet(s) PO daily 09/22/2013 06/18/2014 Inactive Lantus Solostar 100 unit/mL (3 mL) subcutaneous insulin pen RxNorm: 102940 35 Unit(s) SQ daily doctor to adjust medications based on blood glucose results 08/02/2013 10/09/2013 Inactive Cardizem LA 360 mg tablet,extended release RxNorm: 235534 1 Tablet(s) PO daily TAKE 1 TABLET BY MOUTH DAILY 07/18/2013 Inactive Cardizem LA 360 mg tablet,extended release RxNorm: 680249 Tablet(s) PO TAKE 1 TABLET BY MOUTH DAILY 07/18/20132014 Inactive metoprolol succinate ER 100 mg tablet,extended release 24 hr RxNorm: 542289 1 Tablet(s) PO daily TAKE 1 TABLET BY MOUTH DAILY 07/18/2013 04/13/2014 Inactive metoprolol succinate ER 100 mg tablet,extended release 24 hr RxNorm: 531547 Tablet (s) PO TAKE 1 TABLET BY MOUTH DAILY 07/18/2013 08/03/2014 Inactive Lantus Solostar 100 unit/mL (3 mL) subcutaneous insulin pen RxNorm: 255828 30 Unit(s) SQ daily doctor to adjust medications based on blood glucose results 07/04/2013 08/01/2013 Inactive Victoza 3-To 0.6 mg/0.1 mL (18 mg/3 mL) subcutaneous pen injector RxNorm: 443450 1.8 Milligram(s) SQ daily 06/30/201303/26 Inactive this is just a correction of her current dosing - she does not need a refill metformin ER 1,000 mg tablet,extended release 24hr RxNorm: 743294 1 Tablet(s) PO daily 06/30/2013 10/25/2013 Inactive Lantus Solostar 100 unit/mL (3 mL) subcutaneous insulin pen RxNorm: 950949 20 Unit(s) SQ daily doctor to adjust medications based on blood glucose results 06/30/2013 07/03/2013 Inactive Lantus Solostar 100 unit/mL (3 mL) subcutaneous insulin pen RxNorm: 387437 15 Unit(s) SQ daily doctor to adjust medications based on blood glucose results 06/23/2013 06/29/2013 Inactive Victoza 3-To 0.6 mg/0.1 mL (18 mg/3 mL) subcutaneous pen injector RxNorm: 141909 3mg Milliliter(s) SQ daily 90 days worth 06/20/2013 06/29/2013 Inactive hydrochlorothiazide 25 mg tablet RxNorm: 581084 1 Tablet(s) PO daily 06/13/2013 09/21/2013 Inactive ketorolac 60 mg/2 mL intramuscular solution RxNorm: 380855 2 Milliliter(s) IM 06/06/2013 06/06/2013 Inactive Lantus Solostar 100 unit/mL (3 mL) subcutaneous insulin pen RxNorm: 422526 10 Unit(s) SQ daily doctor to adjust medications based on blood glucose results 06/06/2013 06/22/2013 Inactive naproxen 500 mg tablet RxNorm: 704487 1 Tablet(s) PO BID 201308/04/2013 Inactive hydrochlorothiazide 25 mg tablet RxNorm: 301464 1 Tablet(s) PO daily 06/06/2013 06/12/2013 Inactive Victoza 3-To 0.6 mg/0.1 mL (18 mg/3 mL) subcutaneous pen injector RxNorm: 125048 3mg Milliliter(s) SQ daily 90 days worth 05/19/2013 06/19/2013 Inactive Diflucan 150 mg tablet RxNorm: 353783 1 Tablet(s) PO daily 05/12/2013 Inactive Diflucan 150 mg tablet RxNorm: 102769 1 Tablet(s) PO daily 05/19/2013 Inactive Cardizem LA 360 mg tablet,extended release RxNorm: 033699 Tablet(s) PO TAKE 1 TABLET BY MOUTH DAILY 04/22/20132013 Inactive metoprolol succinate ER 100 mg tablet,extended release 24 hr RxNorm: 578528 Tablet (s) PO TAKE 1 TABLET BY MOUTH DAILY 04/14/2013 07/17/2013 Inactive Diflucan 150 mg tablet RxNorm: 369385 1 Tablet(s) PO daily 03/28/2013 Inactive Diflucan 150 mg tablet RxNorm: 923740 1 Tablet(s) PO daily 03/21/2013 Inactive Diovan 320 mg tablet RxNorm: 582827 1 Tablet(s) PO daily 201212/09/2013 Inactive cefdinir 300 mg capsule RxNorm: 672744 1 Capsule(s) PO BID 02/25/2013 Inactive Phenergan with Codeine Syrup RxNorm: 5-10 Milliliter(s) PO Q6 PRN USE PRN FOR COUGH 02/21/2013 03/20/2013 Inactive 8 OUNCES Victoza 3-To 0.6 mg/0.1 mL (18 mg/3 mL) subcutaneous pen injector RxNorm: 115674 3mg Milliliter(s) SQ daily 90 days worth 12/09/2012 03/08/2013 Inactive scopolamine 1.5 mg transdermal 72 hour patch RxNorm: 354266 1 Patch TD Q72H 10/26/2012 01/04/2014 Inactive scopolamine 1.5 mg 72 hr Transderm Patch RxNorm: 112213 1 Patch TD Q72H 10/26/2012 10/25/2012 Inactive metformin ER 1,000 mg tablet,extended release 24hr RxNorm: 826417 1 Tablet(s) PO BID 10/11/2012 06/29/2013 Inactive Victoza 3-To 0.6 mg/0.1 mL (18 mg/3 mL) Sub-Q Pen Injector RxNorm: 131181 1.8 Milliliter(s) SQ daily 1.8 mg dose daily 09/23/2012 12/08/2012 Inactive Victoza 3-To 0.6 mg/0.1 mL (18 mg/3 mL) Sub-Q Pen Injector RxNorm: 864323 3.0 Milliliter(s) SQ daily 1.2 + 1.8 mg dose daily 201209/22/2012 Inactive Celexa 40 mg tablet RxNorm: 025688 1 Tablet(s) PO daily TAKE ONE TABLET BY MOUTH DAILY 09/21/2012 05/18/2013 Inactive Cardizem LA 360 mg tablet,extended release RxNorm: 263382 1 Tablet(s) PO daily 07/20/2012 04/15/2013 Inactive metoprolol succinate ER 100 mg tablet,extended release 24 hr RxNorm: 154517 1 Tablet(s) PO daily 07/20/2012 04/13/2013 Inactive Byetta 10 mcg/0.04 mL per dose Sub-Q Pen Injector RxNorm: 020920 1 Milliliter(s) SQ BID 06/18/2012 09/22/2012 Inactive Diovan 320 mg tablet RxNorm: 577514 1 Tablet(s) PO daily 201203/14/2013 Inactive metformin ER 1,000 mg tablet,extended release 24hr RxNorm: 985974 1 Tablet(s) PO BID 06/14/2012 09/11/2012 Inactive metformin ER 1,000 mg tablet,extended release 24hr RxNorm: 561504 1 Tablet(s) PO 06/14/2012 06/13/2012 Inactive Livalo 4 mg tablet RxNorm: 504902 1 Tablet(s) PO daily 201201/04/2014 Inactive Celexa 40 mg tablet RxNorm: 353365 1 Tablet(s) PO daily 201209/21/2012 Inactive Accu-Chek Instant Glucose Test Strips RxNorm: 1 Miscellaneous daily accucheck ratna glucometer 05/21/2012 06/14/2013 Inactive Diflucan 150 mg tablet RxNorm: 552138 1 Tablet(s) PO daily 05/26/2012 Inactive Flagyl 500 mg tablet RxNorm: 802310 1 Tablet(s) PO TID 201205/27/2012 Inactive Minivelle 0.0375 mg/24 hr transdermal patch RxNorm: 5327365 1 Patch TD BIW No Start Date Active aspirin 81 mg tablet RxNorm: 449649 1 Tablet(s) PO daily No Start Date Active Cardizem LA 360 mg tablet,extended release RxNorm: 620545 1 Tablet(s) PO daily No Start Date 07/19/2012 Inactive metformin ER 750 mg tablet,extended release 24 hr RxNorm: 085669 1 Tablet(s) PO TID No Start Date 06/13/2012 Inactive Zithromax Z-To 250 mg tablet RxNorm: 247311 Tablet(s) PO No Start Date 06/13/2012 Inactive Diovan 320 mg tablet RxNorm: 092658 1 Tablet(s) PO daily No Start Date 06/17/2012 Inactive Byetta 10 mcg/0.04 mL per dose Sub-Q Pen Injector RxNorm: 043110 1 Milliliter(s) SQ BID No Start Date 06/17/2012 Inactive Vivelle 0.05 mg/24 hr Transderm Patch RxNorm: 235637 1 Patch TD T5ojoiu No Start Date 12/03/2015 Inactive Fish Oil 1,000 mg capsule RxNorm: 1 Capsule(s) PO BID No Start Date 05/29/2015 Inactive Celexa 40 mg tablet RxNorm: 842039 1 Tablet(s) PO daily No Start Date 06/09/2012 Inactive levothyroxine 100 mcg tablet RxNorm: 668874 1 Tablet(s) PO daily No Start Date 04/16/2015 Inactive Fish Oil 1,000 mg capsule RxNorm: 1 Capsule(s) PO daily No Start Date 12/02/2015 Inactive Vitamin B-12 1,000 mcg/mL oral drops RxNorm: 5363856 1 Milliliter(s) PO daily No Start Date 12/02/2015 Inactive metoprolol succinate ER 100 mg tablet,extended release 24 hr RxNorm: 043906 1 Tablet(s) PO daily No Start Date 2012 Inactive promethazine-codeine 6.25 mg-10 mg/5 mL Syrup RxNorm: 525960 5-10 Milliliter(s) PO Q6 PRN No Start Date 12/12/2012 Inactive Percocet 5 mg-325 mg tablet RxNorm: 9710070 1-2 Tablet(s) PO Q6 PRN No Start Date 10/02/2013 Inactive hydrochlorothiazide 25 mg tablet RxNorm: 335076 1 Tablet(s) PO daily No Start Date 06/05/2013 Inactive Victoza 2-To 0.6 mg/0.1 mL (18 mg/3 mL) subcutaneous pen injector RxNorm: 931026 Milligram(s) SQ 1.8mg daily No Start Date 09/13/2013 Inactive Livalo 4 mg tablet RxNorm: 402648 1 Tablet(s) PO daily No Start Date 06/09/2012 Inactive Medication Administered Medication Codes Instructions Start Date Status Kenalog 40 mg/mL suspension for injection RxNorm: 4173989 Milliliter 02/22/2018 No longer Active Kenalog 40 mg/mL suspension for injection RxNorm: 1304252 Milliliter 01/22/2016 No longer Active Kenalog 40 mg/mL suspension for injection RxNorm: 0523773 Milliliter 11/23/2014 No longer Active Kenalog 40 mg/mL suspension for injection RxNorm: 8169939 Milliliter 11/22/2014 No longer Active ketorolac 60 mg/2 mL intramuscular solution RxNorm: 528298 2Milliliter 06/06/2013 No longer Active Immunizations Vaccine Codes Date Status Influenza CVX: 141 01/07/2018 completed Influenza CVX: 141 01/05/2014 completed Influenza CVX: 141 04/22/2013 completed Influenza CVX: 141 02/04/2012 completed Assessments Condition Codes Effective Dates Other allergic rhinitis ICD-10: J30.89 ICD-9: 477.8 02/22/2018 Actinic keratosis ICD-10: L57.0 ICD-9: 702.0 02/22/2018 Generalized anxiety disorder ICD-10: F41.1 ICD-9: 300.02 02/22/2018 Pain in left forearm ICD-10: M79.632 ICD-9: 729.5 02/22/2018 Major depressive disorder, single episode, moderate ICD-10: F32.1 ICD-9: 296.22 02/22/2018 Other acute sinusitis ICD-10: J01.80 ICD-9: 461.8 02/22/2018 Other specified hypothyroidism ICD-10: E03.8 ICD-9: 244.8 01/07/2018 Type 2 diabetes mellitus with hyperglycemia ICD-10: E11.65 ICD-9: 250.02 01/07/2018 VACCIN FOR INFLUENZA ICD-10: Z23 ICD-9: V04.81 01/07/2018 Type 2 diabetes mellitus without complications ICD-10: E11.9 ICD-9: 250.00 12/31/2017 Hypothyroidism, unspecified ICD-10: E03.9 ICD-9: 244.9 12/31/2017 Essential (primary) hypertension ICD-10: I10 ICD-9: 401.1 12/31/2017 Mixed hyperlipidemia ICD-10: E78.2 ICD-9: 272.2 12/31/2017 Encounter for general adult medical examination without abnormal findings ICD-10: Z00.00 ICD-9: V70.0 11/12/2016 Acute upper respiratory infection, unspecified ICD-10: J06.9 ICD-9: 465.9 09/16/2016 Allergic rhinitis due to pollen ICD-10: J30.1 ICD-9: 477.0 09/16/2016 Functional diarrhea ICD-10: K59.1 ICD-9: 564.5 08/11/2016 Essential (primary) hypertension ICD-10: I10 ICD-9: 401.9 07/04/2016 Cramp and spasm ICD-10: R25.2 ICD-9: 729.82 03/31/2016 Nausea ICD-10: R11.0 ICD-9: 787.02 03/31/2016 Cough ICD-10: R05 ICD-9: 786.2 02/01/2016 Gastro-esophageal reflux disease without esophagitis ICD-10 : K21.9 ICD-9: 530.81 02/01/2016 Acute bronchitis, unspecified ICD-10: J20.9 ICD-9: 466.0 01/22/2016 Dysphagia, pharyngeal phase ICD-10: R13.13 ICD-9: 787.23 01/07/2016 Pain in right knee ICD-10: M25.561 ICD-9: 719.46 12/03/2015 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] ICD-10: Z90.3 ICD-9: V45.89 05/29/2015 Paresthesia of skin ICD-10: R20.2 ICD-9: 782.0 05/29/2015 Mixed hyperlipidemia ICD-10: E78.2 ICD-9: 272.4 04/11/2015 Other obesity ICD-10: E66.8 ICD-9: 278.00 04/11/2015 ESOPHAGEAL REFLUX ICD-9: 530.81 2014 Diabetes mellitus, type II ICD-9: 250.00 12/12/2014 ESSENTIAL HYPERTENSION ICD-9: 401.9 12/12 ALLERGIC URTICARIA ICD-9: 708.0 2014 Status post gastric surgery ICD-9: V45.89 11/14/2014 Abdominal pain ICD-9: 789.00 11/14/2014 OBESITY ICD-9: 278.00 09/04/2014 Thyroid nodule ICD-9: 241.0 04/11/2014 Decreased renal function ICD-9: 593.9 DM W/O COMPLICATION TYPE II, UNCONTROLLED ICD-9: 250.02 01/05/2014 Chronic diarrhea ICD-9: 787.91 2013 Generalized anxiety disorder ICD-9: 300.02 10/10/2013 Shoulder pain, right ICD-9: 719.41 2013 INSOMNIA NOS ICD-9: 780.52 08/02/2013 COUGH ICD-9: 786.2 06/30/2013 MYALGIA AND MYOSITIS ICD-9: 729.1 2013 Acute bronchitis ICD-9: 466.0 02/21/2013 Dietary counseling and surveillance ICD-9: V65.3 12/13/2012 HYPERLIPIDEMIA ICD-9: 272.4 09/23/2012 FEVER NOS ICD-9: 780.60 05/21/2012 Influenza ICD-9: 487.1 05/21/2012 Reason For Visit Reason For Visit Effective Dates Notes sinus congestion 02/22/2018 hypertension 01/07/2018 hypertension 10/01/2017 hypertension 06/08/2017 hypertension 11/12/2016 hypertension 08/11/2016 vomiting 03/31/2016 shortness of breath 02/01/2016 cough 01/22/2016 hypertension 01/07/2016 hypertension 12/03/2015 hypertension 09/17/2015 hypertension 05/29/2015 hypertension 12/12/2014 rash 11/22/2014 abdominal pain 11/14/2014 hypertension 09/04/2014 hypertension 08/04/2014 acute renal failure 04/11/2014 diarrhea 01/05/2014 hypertension 10/10/2013 insomnia 08/02/2013 cough 06/30/2013 diabetes mellitus 06/20/2013 shoulder pain 06/06/2013 cough 02/21/2013 diabetes mellitus 12/13/2012 diabetes mellitus 09/23/2012 diabetes mellitus 06/14/2012 cough 05/21/2012 Results Observation Observation Code Item Item Code Result Date Tsh Ord6 TSH (3rd IS) 3.97 uIU/mL 01/05/2018 Cbc With Differential Ord2 WBC 9.77 K/ul 01/05/2018 Cbc With Differential Ord2 RBC 5.11 M/ul 01/05/2018 Cbc With Differential Ord2 HGB 15.1 g/dl 01/05/2018 Cbc With Differential Ord2 HCT 45.1 % 01/05/2018 Cbc With Differential Ord2 Neut% 77.6 % 01/05/2018 Cbc With Differential Ord2 MCV 88.3 fl 01/05/2018 Cbc With Differential Ord2 Lymph% 14.9 % 01/05/2018 Cbc With Differential Ord2 MCH 29.5 pg 01/05/2018 Cbc With Differential Ord2 [place]% 5.5 % 01/05/2018 Cbc With Differential Ord2 MCHC 33.5 pg 01/05/2018 Cbc With Differential Ord2 Eos% 1.5 % 01/05/2018 Cbc With Differential Ord2 PLT 314 K/ul 01/05/2018 Cbc With Differential Ord2 Baso% 0.5 % 01/05/2018 Cbc With Differential Ord2 RDW 12.6 % 01/05/2018 Cbc With Differential Ord2 Neut ABS# 7.57 K/ul 01/05/2018 Cbc With Differential Ord2 Lymph ABS# 1.46 K/ul 01/05/2018 Cbc With Differential Ord2 [place] ABS# 0.5 K/ul 01/05/2018 Cbc With Differential Ord2 Eos ABS# 0.2 K/ul 01/05/2018 Cbc With Differential Ord2 Baso ABS# 0.1 K/ul 01/05/2018 Free T4 [id number] FREE T4 0.92 ng/dL 01/05/2018 Lipid Ord30 CHOL 200 mg/dL 01/05/2018 Lipid Ord30 HDL 48.0 mg/dl 01/05/2018 Lipid Ord30 TRIG 143 mg/dL 01/05/2018 Lipid Ord30 LDL 123 mg/dL 01/05/2018 Lipid Ord30 C/HDL 4.2 Ratio 01/05/2018 Comp Metabolic Atv298 NA 142 mEq/L 01/05/2018 Comp Metabolic Qix204 K 3.9 mEq/L 01/05/2018 Comp Metabolic Rbd122 CL 99 mEq/L 01/05/2018 Comp Metabolic Ipa881 CO2 34.0 mEq/L 01/05/2018 Comp Metabolic Lte649 ANION GAP 13 01/05/2018 Comp Metabolic Ljv090 GLUCOSE 205 mg/dL 01/05/2018 Comp Metabolic Qxj800 Creat 1.0 mg/dL 01/05/2018 Comp Metabolic Pke353 eGFR 65 ml/min/1.73m2 01/05/2018 Comp Metabolic Sqg227 BUN 12 mg/dL 01/05/2018 Comp Metabolic Jpw845 B/C Ratio 12.6 Ratio 01/05/2018 Comp Metabolic Abj532 CALCIUM 9.5 mg/dL 01/05/2018 Comp Metabolic Ffz742 ALK PHOS 150 U/L 01/05/2018 Comp Metabolic Jao160 AST(SGOT) 16 U/L 01/05/2018 Comp Metabolic Pvv318 ALT(SGPT) 15 U/L 01/05/2018 Comp Metabolic Gnh820 BILI T 0.6 mg/dL 01/05/2018 Comp Metabolic Nmg386 ALBUMIN 3.9 g/dL 01/05/2018 Comp Metabolic Hkc896 TPRO 6.6 g/dL 01/05/2018 Comp Metabolic Jgg580 GLOB 2.7 g/dL 01/05/2018 Comp Metabolic Piq798 A/G Ratio 1.5 Ratio 01/05/2018 Comp Metabolic Kvb943 Osmo 289 mOsmo 01/05/2018 %Hba1C Pyq124 % HbA1c 44936-0 10.9 % 01/05/2018 %Hba1C Vof319 Gluc Ave 266 mg/dL 01/05/2018 Lipid Ord30 CHOL 207 mg/dL 09/29/2017 Lipid Ord30 HDL 55.0 mg/dl 09/29/2017 Lipid Ord30 TRIG 152 mg/dL 09/29/2017 Lipid Ord30 LDL 122 mg/dL 09/29/2017 Lipid Ord30 C/HDL 3.8 Ratio 09/29/2017 Cbc With Differential Ord2 WBC 11.11 K/ul 09/29/2017 Cbc With Differential Ord2 RBC 5.48 M/ul 09/29/2017 Cbc With Differential Ord2 HGB 16.6 g/dl 09/29/2017 Cbc With Differential Ord2 Neut% 80.4 % 09/29/2017 Cbc With Differential Ord2 HCT 49.1 % 09/29/2017 Cbc With Differential Ord2 Lymph% 12.5 % 09/29/2017 Cbc With Differential Ord2 MCV 89.6 fl 09/29/2017 Cbc With Differential Ord2 MCH 30.3 pg 09/29/2017 Cbc With Differential Ord2 [place]% 5.5 % 09/29/2017 Cbc With Differential Ord2 MCHC 33.8 pg 09/29/2017 Cbc With Differential Ord2 Eos% 1.1 % 09/29/2017 Cbc With Differential Ord2 PLT 327 K/ul 09/29/2017 Cbc With Differential Ord2 Baso% 0.5 % 09/29/2017 Cbc With Differential Ord2 RDW 13.1 % 09/29/2017 Cbc With Differential Ord2 Neut ABS# 8.93 K/ul 09/29/2017 Cbc With Differential Ord2 Lymph ABS# 1.39 K/ul 09/29/2017 Cbc With Differential Ord2 [place] ABS# 0.6 K/ul 09/29/2017 Cbc With Differential Ord2 Eos ABS# 0.1 K/ul 09/29/2017 Cbc With Differential Ord2 Baso ABS# 0.1 K/ul 09/29/2017 Comp Metabolic Rrp336 NA 140 mEq/L 09/29/2017 Comp Metabolic Pxj163 K 3.4 mEq/L 09/29/2017 Comp Metabolic Pcl099 CL 96 mEq/L 09/29/2017 Comp Metabolic Dpj776 CO2 33.0 mEq/L 09/29/2017 Comp Metabolic Qzq317 ANION GAP 14 09/29/2017 Comp Metabolic Urz222 GLUCOSE 287 mg/dL 09/29/2017 Comp Metabolic Jfy721 Creat 0.8 mg/dL 09/29/2017 Comp Metabolic Udf852 eGFR 77 ml/min/1.73m2 09/29/2017 Comp Metabolic Qer570 BUN 13 mg/dL 09/29/2017 Comp Metabolic Unq947 B/C Ratio 15.9 Ratio 09/29/2017 Comp Metabolic Ddr727 CALCIUM 9.4 mg/dL 09/29/2017 Comp Metabolic Cut399 ALK PHOS 147 U/L 09/29/2017 Comp Metabolic Hom133 AST(SGOT) 17 U/L 09/29/2017 Comp Metabolic Zby566 ALT(SGPT) 25 U/L 09/29/2017 Comp Metabolic Mgc809 BILI T 0.7 mg/dL 09/29/2017 Comp Metabolic Vnr313 ALBUMIN 4.2 g/dL 09/29/2017 Comp Metabolic Xnq588 TPRO 6.8 g/dL 09/29/2017 Comp Metabolic Xgp288 GLOB 2.6 g/dL 09/29/2017 Comp Metabolic Ihv134 A/G Ratio 1.6 Ratio 09/29/2017 Comp Metabolic Nla021 Osmo 290 mOsmo 09/29/2017 %Hba1C Wgu402 % HbA1c 58334-1 11.4 % 09/29/2017 %Hba1C Qrw996 Gluc Ave 280 mg/dL 09/29/2017 Free T4 Wbq609 FREE T4 1.14 ng/dL 09/29/2017 Tsh Ord6 TSH (3rd IS) 2.91 uIU/mL 09/29/2017 Lipid Ord30 CHOL 182 mg/dL 06/02/2017 Lipid Ord30 HDL 57.0 mg/dl 06/02/2017 Lipid Ord30 TRIG 126 mg/dL 06/02/2017 Lipid Ord30 LDL 100 mg/dL 06/02/2017 Lipid Ord30 C/HDL 3.2 Ratio 06/02/2017 %Hba1C Mlp109 % HbA1c 56831-0 8.2 % 06/02/2017 %Hba1C Pen240 Gluc Ave 189 mg/dL 06/02/2017 Comp Metabolic Voj264 NA 143 mEq/L 11/12/2016 Comp Metabolic Siv630 K 3.3 mEq/L 11/12/2016 Comp Metabolic Ogg537 CL 102 mEq/L 11/12/2016 Comp Metabolic Jrs251 CO2 30.0 mEq/L 11/12/2016 Comp Metabolic Isv487 ANION GAP 14 11/12/2016 Comp Metabolic Lqp226 GLUCOSE 141 mg/dL 11/12/2016 Comp Metabolic Wng007 Creat 0.8 mg/dL 11/12/2016 Comp Metabolic Pll390 eGFR 76 ml/min/1.73m2 11/12/2016 Comp Metabolic Rnt239 BUN 11 mg/dL 11/12/2016 Comp Metabolic Vbv164 B/C Ratio 13.3 Ratio 11/12/2016 Comp Metabolic Ham362 CALCIUM 9.2 mg/dL 11/12/2016 Comp Metabolic Hnt987 ALK PHOS 116 U/L 11/12/2016 Comp Metabolic Pcw044 AST(SGOT) 21 U/L 11/12/2016 Comp Metabolic Adx673 ALT(SGPT) 28 U/L 11/12/2016 Comp Metabolic Ymx214 BILI T 0.5 mg/dL 11/12/2016 Comp Metabolic Ewc440 ALBUMIN 3.8 g/dL 11/12/2016 Comp Metabolic Wgo613 TPRO 6.4 g/dL 11/12/2016 Comp Metabolic Vke992 GLOB 2.6 g/dL 11/12/2016 Comp Metabolic Wag620 A/G Ratio 1.5 Ratio 11/12/2016 Comp Metabolic Dkf721 Osmo 287 mOsmo 11/12/2016 Lipid Ord30 CHOL 156 mg/dL 11/12/2016 Lipid Ord30 HDL 50.0 mg/dl 11/12/2016 Lipid Ord30 TRIG 153 mg/dL 11/12/2016 Lipid Ord30 LDL 75 mg/dL 11/12/2016 Lipid Ord30 C/HDL 3.1 Ratio 11/12/2016 Cbc With Differential Ord2 WBC 8.69 K/ul 11/12/2016 Cbc With Differential Ord2 RBC 4.89 M/ul 11/12/2016 Cbc With Differential Ord2 HGB 14.8 g/dl 11/12/2016 Cbc With Differential Ord2 HCT 44.5 % 11/12/2016 Cbc With Differential Ord2 Neut% 75.1 % 11/12/2016 Cbc With Differential Ord2 MCV 91.0 fl 11/12/2016 Cbc With Differential Ord2 Lymph% 16.9 % 11/12/2016 Cbc With Differential Ord2 [place]% 5.8 % 11/12/2016 Cbc With Differential Ord2 MCH 30.3 pg 11/12/2016 Cbc With Differential Ord2 MCHC 33.3 pg 11/12/2016 Cbc With Differential Ord2 Eos% 1.7 % 11/12/2016 Cbc With Differential Ord2 Baso% 0.5 % 11/12/2016 Cbc With Differential Ord2 PLT 301 K/ul 11/12/2016 Cbc With Differential Ord2 RDW 13.1 % 11/12/2016 Cbc With Differential Ord2 Neut ABS# 6.53 K/ul 11/12/2016 Cbc With Differential Ord2 Lymph ABS# 1.47 K/ul 11/12/2016 Cbc With Differential Ord2 [place] ABS# 0.5 K/ul 11/12/2016 Cbc With Differential Ord2 Eos ABS# 0.2 K/ul 11/12/2016 Cbc With Differential Ord2 Baso ABS# 0.0 K/ul 11/12/2016 Tsh Ord6 hTSH II 1.59 uIU/mL 11/12/2016 %Hba1C Mcl172 % HbA1c 00160-1 7.5 % 11/12/2016 %Hba1C Suy639 Gluc Ave 169 mg/dL 11/12/2016 Free T4 Afo220 FREE T4 0.91 ng/dL 11/12/2016 Cbc With Differential Ord2 WBC 7.98 K/ul 07/04/2016 Cbc With Differential Ord2 RBC 5.08 M/ul 07/04/2016 Cbc With Differential Ord2 HGB 15.1 g/dl 07/04/2016 Cbc With Differential Ord2 HCT 45.5 % 07/04/2016 Cbc With Differential Ord2 Neut% 76.8 % 07/04/2016 Cbc With Differential Ord2 Lymph% 13.8 % 07/04/2016 Cbc With Differential Ord2 MCV 89.6 fl 07/04/2016 Cbc With Differential Ord2 MCH 29.7 pg 07/04/2016 Cbc With Differential Ord2 [place]% 7.1 % 07/04/2016 Cbc With Differential Ord2 Eos% 1.5 % 07/04/2016 Cbc With Differential Ord2 MCHC 33.2 pg 07/04/2016 Cbc With Differential Ord2 PLT 268 K/ul 07/04/2016 Cbc With Differential Ord2 Baso% 0.8 % 07/04/2016 Cbc With Differential Ord2 RDW 13.5 % 07/04/2016 Cbc With Differential Ord2 Neut ABS# 6.13 K/ul 07/04/2016 Cbc With Differential Ord2 Lymph ABS# 1.10 K/ul 07/04/2016 Cbc With Differential Ord2 [place] ABS# 0.6 K/ul 07/04/2016 Cbc With Differential Ord2 Eos ABS# 0.1 K/ul 07/04/2016 Cbc With Differential Ord2 Baso ABS# 0.1 K/ul 07/04/2016 Lipid Ord30 CHOL 282 mg/dL 07/04/2016 Lipid Ord30 HDL 53.0 mg/dl 07/04/2016 Lipid Ord30 TRIG 136 mg/dL 07/04/2016 Lipid Ord30 LDL 202 mg/dL 07/04/2016 Lipid Ord30 C/HDL 5.3 Ratio 07/04/2016 Tsh Ord6 hTSH II 1.21 uIU/mL 07/04/2016 %Hba1C Vjf745 % HbA1c 06527-0 7.1 % 07/04/2016 %Hba1C Cgz580 Gluc Ave 157 mg/dL 07/04/2016 Comp Metabolic Svl472 NA 141 mEq/L 07/04/2016 Comp Metabolic Qng461 K 3.5 mEq/L 07/04/2016 Comp Metabolic Gcs592 CL 100 mEq/L 07/04/2016 Comp Metabolic Txk039 CO2 34.0 mEq/L 07/04/2016 Comp Metabolic Fil217 ANION GAP 11 07/04/2016 Comp Metabolic Uwj211 GLUCOSE 144 mg/dL 07/04/2016 Comp Metabolic Gqp349 Creat 0.8 mg/dL 07/04/2016 Comp Metabolic Gxi693 eGFR 75 ml/min/1.73m2 07/04/2016 Comp Metabolic Lus659 BUN 10 mg/dL 07/04/2016 Comp Metabolic Wan356 B/C Ratio 11.9 Ratio 07/04/2016 Comp Metabolic Pig745 CALCIUM 9.4 mg/dL 07/04/2016 Comp Metabolic Nqm466 ALK PHOS 116 U/L 07/04/2016 Comp Metabolic Cek739 AST(SGOT) 16 U/L 07/04/2016 Comp Metabolic Aap214 ALT(SGPT) 17 U/L 07/04/2016 Comp Metabolic Cnn635 BILI T 0.6 mg/dL 07/04/2016 Comp Metabolic Knx101 ALBUMIN 4.3 g/dL 07/04/2016 Comp Metabolic Aok074 TPRO 7.0 g/dL 07/04/2016 Comp Metabolic Odl309 GLOB 2.7 g/dL 07/04/2016 Comp Metabolic Ssw248 A/G Ratio 1.6 Ratio 07/04/2016 Comp Metabolic Nfm999 Osmo 283 mOsmo 07/04/2016 Free T4 Oyt581 FREE T4 0.87 ng/dL 07/04/2016 Cbc With Differential Ord2 WBC 5.56 K/ul 03/31/2016 Cbc With Differential Ord2 RBC 4.75 M/ul 03/31/2016 Cbc With Differential Ord2 HGB 14.2 g/dl 03/31/2016 Cbc With Differential Ord2 HCT 43.1 % 03/31/2016 Cbc With Differential Ord2 Neut% 69.6 % 03/31/2016 Cbc With Differential Ord2 Lymph% 21.9 % 03/31/2016 Cbc With Differential Ord2 MCV 90.7 fl 03/31/2016 Cbc With Differential Ord2 MCH 29.9 pg 03/31/2016 Cbc With Differential Ord2 [place]% 6.5 % 03/31/2016 Cbc With Differential Ord2 MCHC 32.9 pg 03/31/2016 Cbc With Differential Ord2 Eos% 1.8 % 03/31/2016 Cbc With Differential Ord2 Baso% 0.2 % 03/31/2016 Cbc With Differential Ord2 PLT 252 K/ul 03/31/2016 Cbc With Differential Ord2 RDW 13.6 % 03/31/2016 Cbc With Differential Ord2 Neut ABS# 3.87 K/ul 03/31/2016 Cbc With Differential Ord2 Lymph ABS# 1.22 K/ul 03/31/2016 Cbc With Differential Ord2 [place] ABS# 0.4 K/ul 03/31/2016 Cbc With Differential Ord2 Eos ABS# 0.1 K/ul 03/31/2016 Cbc With Differential Ord2 Baso ABS# 0.0 K/ul 03/31/2016 Comp Metabolic Pwx935 NA 137 mEq/L 03/31/2016 Comp Metabolic Psw700 K 3.3 mEq/L 03/31/2016 Comp Metabolic Mgr041 CL 101 mEq/L 03/31/2016 Comp Metabolic Fpr840 CO2 26.0 mEq/L 03/31/2016 Comp Metabolic Ucg518 ANION GAP 13 03/31/2016 Comp Metabolic Ahn413 GLUCOSE 150 mg/dL 03/31/2016 Comp Metabolic Seh860 Creat 0.9 mg/dL 03/31/2016 Comp Metabolic Ifw332 eGFR 71 ml/min/1.73m2 03/31/2016 Comp Metabolic Ztf863 BUN 13 mg/dL 03/31/2016 Comp Metabolic Wrz785 B/C Ratio 14.8 Ratio 03/31/2016 Comp Metabolic Lgr311 CALCIUM 8.8 mg/dL 03/31/2016 Comp Metabolic Eeq996 ALK PHOS 103 U/L 03/31/2016 Comp Metabolic Vyp935 AST(SGOT) 18 U/L 03/31/2016 Comp Metabolic Eby571 ALT(SGPT) 21 U/L 03/31/2016 Comp Metabolic Jtg811 BILI T 0.4 mg/dL 03/31/2016 Comp Metabolic Bus901 ALBUMIN 3.9 g/dL 03/31/2016 Comp Metabolic Ywf727 TPRO 6.5 g/dL 03/31/2016 Comp Metabolic Dui268 GLOB 2.6 g/dL 03/31/2016 Comp Metabolic Vvo310 A/G Ratio 1.5 Ratio 03/31/2016 Comp Metabolic Fea406 Osmo 277 mOsmo 03/31/2016 Cbc With Differential Ord2 WBC 10.13 K/ul 02/12/2016 Cbc With Differential Ord2 RBC 4.48 M/ul 02/12/2016 Cbc With Differential Ord2 HGB 13.6 g/dl 02/12/2016 Cbc With Differential Ord2 HCT 41.0 % 02/12/2016 Cbc With Differential Ord2 Neut% 66.3 % 02/12/2016 Cbc With Differential Ord2 MCV 91.5 fl 02/12/2016 Cbc With Differential Ord2 Lymph% 23.9 % 02/12/2016 Cbc With Differential Ord2 MCH 30.4 pg 02/12/2016 Cbc With Differential Ord2 [place]% 7.0 % 02/12/2016 Cbc With Differential Ord2 MCHC 33.2 pg 02/12/2016 Cbc With Differential Ord2 Eos% 1.9 % 02/12/2016 Cbc With Differential Ord2 PLT 345 K/ul 02/12/2016 Cbc With Differential Ord2 Baso% 0.9 % 02/12/2016 Cbc With Differential Ord2 RDW 13.7 % 02/12/2016 Cbc With Differential Ord2 Neut ABS# 6.72 K/ul 02/12/2016 Cbc With Differential Ord2 Lymph ABS# 2.42 K/ul 02/12/2016 Cbc With Differential Ord2 [place] ABS# 0.7 K/ul 02/12/2016 Cbc With Differential Ord2 Eos ABS# 0.2 K/ul 02/12/2016 Cbc With Differential Ord2 Baso ABS# 0.1 K/ul 02/12/2016 Comp Metabolic Uky761 NA 138 mEq/L 02/01/2016 Comp Metabolic Qug777 K 4.3 mEq/L 02/01/2016 Comp Metabolic Vab861 CL 101 mEq/L 02/01/2016 Comp Metabolic Erb083 CO2 27.0 mEq/L 02/01/2016 Comp Metabolic Dgo611 ANION GAP 14 02/01/2016 Comp Metabolic Vpn102 GLUCOSE 127 mg/dL 02/01/2016 Comp Metabolic Fbh111 Creat 1.0 mg/dL 02/01/2016 Comp Metabolic Ecc274 eGFR 61 ml/min/1.73m2 02/01/2016 Comp Metabolic Mfq511 BUN 21 mg/dL 02/01/2016 Comp Metabolic Psa635 B/C Ratio 20.8 Ratio 02/01/2016 Comp Metabolic Rdd321 CALCIUM 9.1 mg/dL 02/01/2016 Comp Metabolic Osr857 ALK PHOS 105 U/L 02/01/2016 Comp Metabolic Qii105 AST(SGOT) 14 U/L 02/01/2016 Comp Metabolic Ior124 ALT(SGPT) 26 U/L 02/01/2016 Comp Metabolic Bhk425 BILI T 0.4 mg/dL 02/01/2016 Comp Metabolic Shv935 ALBUMIN 3.9 g/dL 02/01/2016 Comp Metabolic Zjl437 TPRO 6.7 g/dL 02/01/2016 Comp Metabolic Yts694 GLOB 2.8 g/dL 02/01/2016 Comp Metabolic Dvw857 A/G Ratio 1.4 Ratio 02/01/2016 Comp Metabolic Iwy019 Osmo 280 mOsmo 02/01/2016 Tsh Ord6 hTSH II 2.00 uIU/mL 02/01/2016 Cbc With Differential Ord2 WBC 13.41 K/ul 02/01/2016 Cbc With Differential Ord2 RBC 5.06 M/ul 02/01/2016 Cbc With Differential Ord2 HGB 15.4 g/dl 02/01/2016 Cbc With Differential Ord2 HCT 46.3 % 02/01/2016 Cbc With Differential Ord2 Neut% 64.4 % 02/01/2016 Cbc With Differential Ord2 MCV 91.5 fl 02/01/2016 Cbc With Differential Ord2 Lymph% 27.9 % 02/01/2016 Cbc With Differential Ord2 MCH 30.4 pg 02/01/2016 Cbc With Differential Ord2 [place]% 5.8 % 02/01/2016 Cbc With Differential Ord2 Eos% 1.6 % 02/01/2016 Cbc With Differential Ord2 MCHC 33.3 pg 02/01/2016 Cbc With Differential Ord2 Baso% 0.3 % 02/01/2016 Cbc With Differential Ord2 PLT 392 K/ul 02/01/2016 Cbc With Differential Ord2 RDW 13.6 % 02/01/2016 Cbc With Differential Ord2 Neut ABS# 8.63 K/ul 02/01/2016 Cbc With Differential Ord2 Lymph ABS# 3.74 K/ul 02/01/2016 Cbc With Differential Ord2 [place] ABS# 0.8 K/ul 02/01/2016 Cbc With Differential Ord2 Eos ABS# 0.2 K/ul 02/01/2016 Cbc With Differential Ord2 Baso ABS# 0.0 K/ul 02/01/2016 %Hba1C Mzk339 % HbA1c 84322-4 6.9 % 01/07/2016 %Hba1C Gos822 Gluc Ave 151 mg/dL 01/07/2016 Tsh Ord6 hTSH II 0.99 uIU/mL 11/08/2015 Free T4 Muq308 FREE T4 1.01 ng/dL 11/08/2015 %Hba1C Jdf019 % HbA1c 43790-3 6.6 % 09/14/2015 %Hba1C Mai708 Gluc Ave 143 mg/dL 09/14/2015 Lipid Ord30 CHOL 268 mg/dL 09/12/2015 Lipid Ord30 HDL 55.0 mg/dl 09/12/2015 Lipid Ord30 TRIG 146 mg/dL 09/12/2015 Lipid Ord30 LDL 184 mg/dL 09/12/2015 Lipid Ord30 C/HDL 4.9 Ratio 09/12/2015 Cbc With Differential Ord2 WBC 6.92 K/ul 09/12/2015 Cbc With Differential Ord2 RBC 4.89 M/ul 09/12/2015 Cbc With Differential Ord2 HGB 14.6 g/dl 09/12/2015 Cbc With Differential Ord2 HCT 43.7 % 09/12/2015 Cbc With Differential Ord2 Neut% 70.4 % 09/12/2015 Cbc With Differential Ord2 MCV 89.4 fl 09/12/2015 Cbc With Differential Ord2 Lymph% 21.4 % 09/12/2015 Cbc With Differential Ord2 [place]% 5.9 % 09/12/2015 Cbc With Differential Ord2 MCH 29.9 pg 09/12/2015 Cbc With Differential Ord2 Eos% 1.7 % 09/12/2015 Cbc With Differential Ord2 MCHC 33.4 pg 09/12/2015 Cbc With Differential Ord2 Baso% 0.6 % 09/12/2015 Cbc With Differential Ord2 PLT 296 K/ul 09/12/2015 Cbc With Differential Ord2 RDW 13.3 % 09/12/2015 Cbc With Differential Ord2 Neut ABS# 4.87 K/ul 09/12/2015 Cbc With Differential Ord2 Lymph ABS# 1.48 K/ul 09/12/2015 Cbc With Differential Ord2 [place] ABS# 0.4 K/ul 09/12/2015 Cbc With Differential Ord2 Eos ABS# 0.1 K/ul 09/12/2015 Cbc With Differential Ord2 Baso ABS# 0.0 K/ul 09/12/2015 Cbc With Differential Ord2 New Analyzer Notice Please note new ref ranges starting 05-09-2015 due to implemntation of new five part differential hematolgy analyzer. 09/12/2015 Comp Metabolic Ivo184 NA 139 mEq/L 09/12/2015 Comp Metabolic Gra245 K 3.7 mEq/L 09/12/2015 Comp Metabolic Ynp054 CL 102 mEq/L 09/12/2015 Comp Metabolic Xxb119 CO2 30.0 mEq/L 09/12/2015 Comp Metabolic Jpy042 ANION GAP 11 09/12/2015 Comp Metabolic Usf640 GLUCOSE 135 mg/dL 09/12/2015 Comp Metabolic Hnl910 Creat 0.8 mg/dL 09/12/2015 Comp Metabolic Vrd098 eGFR 86 ml/min/1.73m2 09/12/2015 Comp Metabolic Kdx176 BUN 10 mg/dL 09/12/2015 Comp Metabolic Irh880 B/C Ratio 13.3 Ratio 09/12/2015 Comp Metabolic Kgv793 CALCIUM 8.8 mg/dL 09/12/2015 Comp Metabolic Kwf203 ALK PHOS 95 U/L 09/12/2015 Comp Metabolic Qqd860 AST(SGOT) 18 U/L 09/12/2015 Comp Metabolic Ylh550 ALT(SGPT) 20 U/L 09/12/2015 Comp Metabolic Nkg344 BILI T 0.5 mg/dL 09/12/2015 Comp Metabolic Lkw877 ALBUMIN 3.9 g/dL 09/12/2015 Comp Metabolic Bxc157 TPRO 6.5 g/dL 09/12/2015 Comp Metabolic Lpd728 GLOB 2.6 g/dL 09/12/2015 Comp Metabolic Ddz472 A/G Ratio 1.5 Ratio 09/12/2015 Comp Metabolic Lke059 Osmo 279 mOsmo 09/12/2015 Tsh Ord6 hTSH II 0.81 uIU/mL 08/01/2015 Free T4 Agq345 FREE T4 0.82 ng/dL 08/01/2015 Vitamin B12 831216 VITAMIN B12 TEST NOT PERFORMED pg/mL 2015 Vitamin D 25 Oh Lxl5184 VITAMIN D, 25 HYDROXY 50.78 ng/mL Comp Metabolic Cyc529 NA 142 mEq/L 04/12/2015 Comp Metabolic Spo587 K 3.5 mEq/L 04/12/2015 Comp Metabolic Akx683 CL 102 mEq/L 04/12/2015 Comp Metabolic Oga005 CO2 32.0 mEq/L 04/12/2015 Comp Metabolic Giy208 ANION GAP 12 04/12/2015 Comp Metabolic Mye072 GLUCOSE 130 mg/dL 04/12/2015 Comp Metabolic Kry085 Creat 0.8 mg/dL 04/12/2015 Comp Metabolic Qgn299 eGFR 78 ml/min/1.73m2 04/12/2015 Comp Metabolic Pog869 BUN 12 mg/dL 04/12/2015 Comp Metabolic Rew706 B/C Ratio 14.6 Ratio 04/12/2015 Comp Metabolic Asa257 CALCIUM 8.9 mg/dL 04/12/2015 Comp Metabolic Oly577 ALK PHOS 95 U/L 04/12/2015 Comp Metabolic Khe880 AST(SGOT) 21 U/L 04/12/2015 Comp Metabolic Ulq834 ALT(SGPT) 23 U/L 04/12/2015 Comp Metabolic Vfe226 BILI T 0.4 mg/dL 04/12/2015 Comp Metabolic Kgf200 ALBUMIN 3.9 g/dL 04/12/2015 Comp Metabolic Ozg319 TPRO 6.3 g/dL 04/12/2015 Comp Metabolic Bza674 GLOB 2.4 g/dL 04/12/2015 Comp Metabolic Nli301 A/G Ratio 1.6 Ratio 04/12/2015 Comp Metabolic Ctw743 Osmo 285 mOsmo 04/12/2015 Tsh Ord6 hTSH II 0.18 uIU/mL 04/12/2015 %Hba1C Pwk284 % HbA1c 19578-8 6.4 % 04/12/2015 %Hba1C Wvt923 Gluc Ave 137 mg/dL 04/12/2015 Free T4 Six732 FREE T4 1.13 ng/dL 04/12/2015 Cbc With Differential Ord2 WBC 6.8 K/uL 04/12/2015 Cbc With Differential Ord2 LYM 1.3 K/uL 04/12/2015 Cbc With Differential Ord2 LYM% 18.4 % 04/12/2015 Cbc With Differential Ord2 NEUT/GRAN 5.2 K/uL 04/12/2015 Cbc With Differential Ord2 NEUT/GRAN % 75.8 % 04/12/2015 Cbc With Differential Ord2 MID 0.4 K/uL 04/12/2015 Cbc With Differential Ord2 MID% 5.8 % 04/12/2015 Cbc With Differential Ord2 RBC 4.93 M/uL 04/12/2015 Cbc With Differential Ord2 HGB 14.3 g/dL 04/12/2015 Cbc With Differential Ord2 HCT 46.7 % 04/12/2015 Cbc With Differential Ord2 MCV 95 fL 04/12/2015 Cbc With Differential Ord2 MCH 29 pg 04/12/2015 Cbc With Differential Ord2 MCHC 31 g/dL 04/12/2015 Cbc With Differential Ord2 PLT 289 K/uL 04/12/2015 Cbc With Differential Ord2 RDW 12.8 % 04/12/2015 Lipid Ord30 CHOL 182 mg/dL 04/12/2015 Lipid Ord30 HDL 36.0 mg/dl 04/12/2015 Lipid Ord30 TRIG 82 mg/dL 04/12/2015 Lipid Ord30 LDL 130 mg/dL 04/12/2015 Lipid Ord30 C/HDL 5.1 Ratio 04/12/2015 Cbc With Differential Ord2 WBC 10.9 K/uL 11/14/2014 Cbc With Differential Ord2 LYM 1.9 K/uL 11/14/2014 Cbc With Differential Ord2 LYM% 17.1 % 11/14/2014 Cbc With Differential Ord2 NEUT/GRAN 8.4 K/uL 11/14/2014 Cbc With Differential Ord2 NEUT/GRAN % 77.0 % 11/14/2014 Cbc With Differential Ord2 MID 0.6 K/uL 11/14/2014 Cbc With Differential Ord2 MID% 5.9 % 11/14/2014 Cbc With Differential Ord2 RBC 4.97 M/uL 11/14/2014 Cbc With Differential Ord2 HGB 14.6 g/dL 11/14/2014 Cbc With Differential Ord2 HCT 42.9 % 11/14/2014 Cbc With Differential Ord2 MCV 86 fL 11/14/2014 Cbc With Differential Ord2 MCH 29 pg 11/14/2014 Cbc With Differential Ord2 MCHC 34 g/dL 11/14/2014 Cbc With Differential Ord2 PLT 313 K/uL 11/14/2014 Cbc With Differential Ord2 RDW 14.6 % 11/14/2014 Comp Metabolic Esn576 NA 137 mEq/L 11/14/2014 Comp Metabolic Ixg937 K 3.6 mEq/L 11/14/2014 Comp Metabolic Wct224 CL 98 mEq/L 11/14/2014 Comp Metabolic Rla129 CO2 31.0 mEq/L 11/14/2014 Comp Metabolic Yop636 ANION GAP 12 11/14/2014 Comp Metabolic Xdc097 GLUCOSE 110 mg/dL 11/14/2014 Comp Metabolic Ptl005 Creat 0.8 mg/dL 11/14/2014 Comp Metabolic Nrk094 eGFR 81 ml/min/1.73m2 11/14/2014 Comp Metabolic Yqg891 BUN 14 mg/dL 11/14/2014 Comp Metabolic Hty131 B/C Ratio 17.7 Ratio 11/14/2014 Comp Metabolic Zhe290 CALCIUM 9.2 mg/dL 11/14/2014 Comp Metabolic Tkk652 ALK PHOS 135 U/L 11/14/2014 Comp Metabolic Tlx698 AST(SGOT) 17 U/L 11/14/2014 Comp Metabolic Yin635 ALT(SGPT) 20 U/L 11/14/2014 Comp Metabolic Pcz528 BILI T 0.3 mg/dL 11/14/2014 Comp Metabolic Xzz064 ALBUMIN 3.7 g/dL 11/14/2014 Comp Metabolic Vjf033 TPRO 6.5 g/dL 11/14/2014 Comp Metabolic Jfw892 GLOB 2.8 g/dL 11/14/2014 Comp Metabolic Drb110 A/G Ratio 1.3 Ratio 11/14/2014 Comp Metabolic Bve550 Osmo 275 mOsmo 11/14/2014 GFR CALC 5248630 GFR AA >60 ML/MIN 04/11/2014 GFR CALC 8823131 GFR NON-AA >60 ML/MIN 04/11/2014 CHEM 14 8998906 AST 18 U/L 04/11/2014 CHEM 14 8564220 ALT 25 IU/L 04/11/2014 CHEM 14 4694731 BUN 13 MG/DL 04/11/2014 CHEM 14 4823633 ALBUMIN 4.1 GM/DL 04/11/2014 CHEM 14 4088824 CHLORIDE 103 MMOL/L 04/11/2014 CHEM 14 6963017 BILI TOT 0.3 MG/DL 04/11/2014 CHEM 14 8254630 ALK PHOS 107 U/L 04/11/2014 CHEM 14 8371762 SODIUM 139 MMOL/L 04/11/2014 CHEM 14 0553833 CREATININE 0.85 MG/DL 04/11/2014 CHEM 14 4951916 CALCIUM 9.2 MG/DL 04/11/2014 CHEM 14 3415051 POTASSIUM 3.7 MMOL/L 04/11/2014 CHEM 14 1727076 PROT TOT 7.1 GM/DL 04/11/2014 CHEM 14 7836921 GLUCOSE 85 MG/DL 04/11/2014 CHEM 14 3185291 BICARB 28 MMOL/L 04/11/2014 CHEM 14 2381123 ANION GAP 8 MEQ/L 04/11/2014 URINALYSIS NONAUTO W/O SCOPE 30709 Specific [place] 1.020 DateTime(Free Text in Aprima) URINALYSIS NONAUTO W/O SCOPE 55107 PH 5.0 DateTime(Free Text in Aprima) URINALYSIS NONAUTO W/O SCOPE 68605 Protein neg DateTime( Free Text in Aprima) URINALYSIS NONAUTO W/O SCOPE 35273 Blood neg DateTime(Free Text in Aprima) URINALYSIS NONAUTO W/O SCOPE 16528 Bilirubin neg DateTime(Free Text in Aprima) URINALYSIS NONAUTO W/O SCOPE 58088 Ketones small DateTime(Free Text in Aprima) URINALYSIS NONAUTO W/O SCOPE 71318 Urobilinogen neg DateTime(Free Text in Aprima) URINALYSIS NONAUTO W/O SCOPE 35655 Nitrite neg DateTime( Free Text in Aprima) URINALYSIS NONAUTO W/O SCOPE 86219 Leukocytes neg DateTime(Free Text in Aprima) Review of Systems System Result Effective Dates Constitutional recent illness 02/22/2018 Constitutional No chills 02/22/2018 Constitutional No diaphoresis 02/22/2018 Constitutional No fever 02/22/2018 Eyes No eye erythema 02/22/2018 Ears/Nose/Throat/Neck nasal allergies Ears/Nose/Throat/Neck nasal discharge Ears/Nose/Throat/Neck postnasal drip Ears/Nose/Throat/Neck sinus congestion Ears/Nose/Throat/Neck No sore throat Cardiovascular No chest pain/pressure Cardiovascular No dyspnea 02/22/2018 Respiratory No chest congestion 2017 Respiratory cough 02/22/2018 Respiratory No dyspnea 02/22/2018 Gastrointestinal No abdominal pain 2017 Gastrointestinal No constipation 2017 Gastrointestinal No diarrhea 02/22/2018 Gastrointestinal No nausea 02/22/2018 Gastrointestinal No vomiting 02/22/2018 Dermatologic No rash 02/22/2018 Neurologic No alteration of consciousness 02/22/2018 Neurologic No mental status change 2017 Musculoskeletal joint complaint 2017 Psychiatric anxiety 02/22/2018 Psychiatric depression 02/22/2018 Psychiatric No suicidality 02/22/2018 Constitutional No recent illness 2017 Constitutional No chills 01/07/2018 Constitutional No diaphoresis 01/07/2018 Constitutional No fever 01/07/2018 Eyes No eye discharge 01/07/2018 Eyes No eye erythema 01/07/2018 Ears/Nose/Throat/Neck No nasal allergies 01/07/2018 Ears/Nose/Throat/Neck No nasal discharge 01/07/2018 Cardiovascular No chest pain/pressure Cardiovascular No dyspnea 01/07/2018 Respiratory No productive sputum 2017 Respiratory No chest congestion 2017 Respiratory No cough 01/07/2018 Gastrointestinal No abdominal pain 2017 Gastrointestinal No constipation 2017 Gastrointestinal No diarrhea 01/07/2018 Gastrointestinal No nausea 01/07/2018 Gastrointestinal No vomiting 01/07/2018 Musculoskeletal No joint complaint 2017 Neurologic No alteration of consciousness 01/07/2018 Neurologic No mental status change 2017 Constitutional No recent illness 2017 Constitutional No chills 10/01/2017 Constitutional No diaphoresis 10/01/2017 Constitutional No fever 10/01/2017 Eyes No eye discharge 10/01/2017 Eyes No eye erythema 10/01/2017 Ears/Nose/Throat/Neck No nasal allergies 10/01/2017 Ears/Nose/Throat/Neck No nasal discharge 10/01/2017 Cardiovascular No chest pain/pressure 10/2017 Cardiovascular No dyspnea 10/01/2017 Respiratory No productive sputum 2017 Respiratory No chest congestion 2017 Respiratory No cough 10/01/2017 Gastrointestinal No nausea 10/01/2017 Gastrointestinal No vomiting 10/01/2017 Musculoskeletal No joint complaint 2017 Neurologic No alteration of consciousness 10/01/2017 Neurologic No mental status change 2017 Psychiatric anxiety 10/01/2017 Psychiatric depression 10/01/2017 Psychiatric No suicidality 10/01/2017 Gastrointestinal No abdominal pain 2017 Gastrointestinal No constipation 2017 Gastrointestinal No diarrhea 10/01/2017 Constitutional No recent illness 2017 Constitutional No chills 06/08/2017 Constitutional No diaphoresis 06/08/2017 Constitutional No fever 06/08/2017 Eyes No eye discharge 06/08/2017 Eyes No eye erythema 06/08/2017 Ears/Nose/Throat/Neck No nasal discharge 06/08/2017 Cardiovascular No chest pain/pressure 03/2018 Cardiovascular No dyspnea 06/08/2017 Respiratory No productive sputum 2017 Respiratory No chest congestion 2017 Respiratory No cough 06/08/2017 Gastrointestinal No constipation 2017 Gastrointestinal No nausea 06/08/2017 Gastrointestinal No vomiting 06/08/2017 Musculoskeletal No joint complaint 2017 Neurologic No alteration of consciousness 06/08/2017 Psychiatric anxiety 06/08/2017 Psychiatric depression 06/08/2017 Ears/Nose/Throat/Neck No nasal allergies 06/08/2017 Gastrointestinal diarrhea 06/08/2017 Neurologic No mental status change 2017 Psychiatric No suicidality 06/08/2017 Constitutional No recent illness 2016 Constitutional No chills 11/12/2016 Constitutional No diaphoresis 11/12/2016 Constitutional No fever 11/12/2016 Constitutional No insomnia 11/12/2016 Constitutional No malaise 11/12/2016 Eyes No eye discharge 11/12/2016 Eyes No eye erythema 11/12/2016 Ears/Nose/Throat/Neck No dizziness 2016 Ears/Nose/Throat/Neck No headache 2016 Ears/Nose/Throat/Neck No nasal discharge 11/12/2016 Cardiovascular No chest pain/pressure Cardiovascular No dyspnea 11/12/2016 Cardiovascular No edema 11/12/2016 Respiratory No productive sputum 2016 Respiratory No chest congestion 2016 Respiratory No cough 11/12/2016 Gastrointestinal No constipation 2016 Gastrointestinal No nausea 11/12/2016 Gastrointestinal No vomiting 11/12/2016 Musculoskeletal No joint complaint 2016 Dermatologic No rash 11/12/2016 Dermatologic No sores 11/12/2016 Neurologic No alteration of consciousness 11/12/2016 Neurologic paresthesia 11/12/2016 Psychiatric No anxiety 11/12/2016 Psychiatric No depression 11/12/2016 Genitourinary/Nephrology No dysuria 11/12 Genitourinary/Nephrology No nocturia Genitourinary/Nephrology No urinary incontinence 11/12/2016 Constitutional recent illness 09/16/2016 Constitutional No anorexia 09/16/2016 Constitutional No night sweats 2016 Constitutional No chills 09/16/2016 Constitutional No diaphoresis 09/16/2016 Constitutional fatigue 09/16/2016 Constitutional No fever 09/16/2016 Constitutional No insomnia 09/16/2016 Constitutional No malaise 09/16/2016 Constitutional No weight loss 09/16/2016 Constitutional No weight gain 09/16/2016 Eyes No eye discharge 09/16/2016 Eyes No eye erythema 09/16/2016 Ears/Nose/Throat/Neck No dizziness 2016 Ears/Nose/Throat/Neck nasal allergies Ears/Nose/Throat/Neck nasal discharge Cardiovascular No chest pain/pressure Cardiovascular No dyspnea 09/16/2016 Respiratory No productive sputum 2016 Respiratory No chest congestion 2016 Respiratory No cough 09/16/2016 Gastrointestinal No abdominal pain 2016 Genitourinary/Nephrology No dysuria 09/16 Musculoskeletal No joint complaint 2016 Dermatologic No rash 09/16/2016 Neurologic No alteration of consciousness 09/16/2016 Ears/Nose/Throat/Neck otalgia 09/16/2016 Ears/Nose/Throat/Neck No sinus congestion 09/16/2016 Ears/Nose/Throat/Neck sore throat 2016 Constitutional No recent illness 2016 Constitutional No chills 08/11/2016 Constitutional No diaphoresis 08/11/2016 Constitutional No fever 08/11/2016 Constitutional No insomnia 08/11/2016 Constitutional No malaise 08/11/2016 Eyes No eye discharge 08/11/2016 Eyes No eye erythema 08/11/2016 Ears/Nose/Throat/Neck No dizziness 2016 Ears/Nose/Throat/Neck No headache 2016 Ears/Nose/Throat/Neck No nasal discharge 08/11/2016 Cardiovascular No chest pain/pressure Cardiovascular No dyspnea 08/11/2016 Cardiovascular No edema 08/11/2016 Respiratory No productive sputum 2016 Respiratory No chest congestion 2016 Respiratory No cough 08/11/2016 Gastrointestinal No constipation 2016 Gastrointestinal No nausea 08/11/2016 Gastrointestinal No vomiting 08/11/2016 Musculoskeletal No joint complaint 2016 Dermatologic No rash 08/11/2016 Dermatologic No sores 08/11/2016 Neurologic No alteration of consciousness 08/11/2016 Neurologic paresthesia 08/11/2016 Psychiatric No anxiety 08/11/2016 Psychiatric No depression 08/11/2016 Gastrointestinal diarrhea 08/11/2016 Constitutional recent illness 03/31/2016 Constitutional anorexia 03/31/2016 Constitutional night sweats 03/31/2016 Constitutional chills 03/31/2016 Constitutional diaphoresis 03/31/2016 Constitutional fatigue 03/31/2016 Constitutional fever 03/31/2016 Constitutional No insomnia 03/31/2016 Constitutional No malaise 03/31/2016 Constitutional No weight loss 03/31/2016 Constitutional No weight gain 03/31/2016 Eyes No eye erythema 03/31/2016 Eyes No eye discharge 03/31/2016 Ears/Nose/Throat/Neck No dizziness 2015 Cardiovascular No chest pain/pressure 08/2015 Respiratory No cough 03/31/2016 Gastrointestinal No constipation 2015 Gastrointestinal diarrhea 03/31/2016 Gastrointestinal gastroesophageal reflux 03/31/2016 Genitourinary/Nephrology No dysuria 03/31 Musculoskeletal joint complaint 2015 Dermatologic No rash 03/31/2016 Neurologic No alteration of consciousness 03/31/2016 Constitutional recent illness 02/01/2016 Constitutional No anorexia 02/01/2016 Constitutional No night sweats 2015 Constitutional No chills 02/01/2016 Constitutional fatigue 02/01/2016 Constitutional No diaphoresis 02/01/2016 Constitutional No fever 02/01/2016 Constitutional No insomnia 02/01/2016 Constitutional No malaise 02/01/2016 Constitutional No weight loss 02/01/2016 Constitutional No weight gain 02/01/2016 Eyes No eye erythema 02/01/2016 Eyes No eye discharge 02/01/2016 Ears/Nose/Throat/Neck dizziness 2015 Ears/Nose/Throat/Neck headache 2015 Ears/Nose/Throat/Neck nasal allergies 10/2015 Ears/Nose/Throat/Neck No nasal discharge 02/01/2016 Ears/Nose/Throat/Neck No otalgia 2015 Ears/Nose/Throat/Neck No sinus congestion 02/01/2016 Ears/Nose/Throat/Neck No sore throat 10/2015 Cardiovascular No chest pain/pressure 10/2015 Respiratory No productive sputum 2015 Respiratory cough 02/01/2016 Respiratory dyspnea on exertion 2015 Gastrointestinal No abdominal pain 2015 Gastrointestinal No constipation 2015 Gastrointestinal No diarrhea 02/01/2016 Genitourinary/Nephrology No dysuria 01/31 Musculoskeletal No joint complaint 2015 Gastrointestinal gastroesophageal reflux 02/01/2016 Dermatologic No rash 02/01/2016 Neurologic No alteration of consciousness 02/01/2016 Constitutional No anorexia 01/22/2016 Constitutional recent illness 01/22/2016 Constitutional No night sweats 2015 Constitutional chills 01/22/2016 Constitutional diaphoresis 01/22/2016 Constitutional fatigue 01/22/2016 Constitutional No fever 01/22/2016 Constitutional insomnia 01/22/2016 Constitutional No malaise 01/22/2016 Constitutional No weight loss 01/22/2016 Constitutional No weight gain 01/22/2016 Eyes No eye discharge 01/22/2016 Eyes No eye erythema 01/22/2016 Ears/Nose/Throat/Neck No dizziness 2015 Ears/Nose/Throat/Neck No headache 2015 Ears/Nose/Throat/Neck No nasal discharge 01/22/2016 Cardiovascular No chest pain/pressure Cardiovascular No dyspnea 01/22/2016 Respiratory No productive sputum 2015 Respiratory chest congestion 01/22/2016 Respiratory cough 01/22/2016 Respiratory chest tightness 01/22/2016 Gastrointestinal No abdominal pain 2015 Gastrointestinal No constipation 2015 Gastrointestinal No diarrhea 01/22/2016 Genitourinary/Nephrology No dysuria 01/21 Musculoskeletal No joint complaint 2015 Dermatologic No rash 01/22/2016 Neurologic No alteration of consciousness 01/22/2016 Constitutional No recent illness 2015 Constitutional No chills 01/07/2016 Constitutional No diaphoresis 01/07/2016 Constitutional No fever 01/07/2016 Constitutional No insomnia 01/07/2016 Constitutional No malaise 01/07/2016 Eyes No eye discharge 01/07/2016 Eyes No eye erythema 01/07/2016 Ears/Nose/Throat/Neck No dizziness 2015 Ears/Nose/Throat/Neck No headache 2015 Ears/Nose/Throat/Neck No nasal discharge 01/07/2016 Cardiovascular No chest pain/pressure 03/2016 Cardiovascular No dyspnea 01/07/2016 Cardiovascular No edema 01/07/2016 Respiratory No productive sputum 2015 Respiratory No chest congestion 2015 Respiratory No cough 01/07/2016 Gastrointestinal No constipation 2015 Gastrointestinal No nausea 01/07/2016 Gastrointestinal No vomiting 01/07/2016 Musculoskeletal No joint complaint 2015 Dermatologic No rash 01/07/2016 Dermatologic No sores 01/07/2016 Neurologic No alteration of consciousness 01/07/2016 Neurologic paresthesia 01/07/2016 Psychiatric No anxiety 01/07/2016 Psychiatric No depression 01/07/2016 Gastrointestinal dysphagia 01/07/2016 Constitutional No recent illness 2015 Constitutional No chills 12/03/2015 Constitutional No diaphoresis 12/03/2015 Constitutional No fever 12/03/2015 Constitutional No insomnia 12/03/2015 Constitutional No malaise 12/03/2015 Eyes No eye discharge 12/03/2015 Eyes No eye erythema 12/03/2015 Ears/Nose/Throat/Neck No dizziness 2015 Ears/Nose/Throat/Neck No headache 2015 Ears/Nose/Throat/Neck No nasal discharge 12/03/2015 Cardiovascular No chest pain/pressure 11/2015 Cardiovascular No dyspnea 12/03/2015 Cardiovascular No edema 12/03/2015 Respiratory No productive sputum 2015 Respiratory No chest congestion 2015 Respiratory No cough 12/03/2015 Gastrointestinal No constipation 2015 Gastrointestinal No nausea 12/03/2015 Gastrointestinal No vomiting 12/03/2015 Musculoskeletal No joint complaint 2015 Dermatologic No rash 12/03/2015 Dermatologic No sores 12/03/2015 Neurologic No alteration of consciousness 12/03/2015 Neurologic paresthesia 12/03/2015 Psychiatric No anxiety 12/03/2015 Psychiatric No depression 12/03/2015 Constitutional No recent illness 2015 Constitutional No chills 09/17/2015 Constitutional No diaphoresis 09/17/2015 Constitutional No fever 09/17/2015 Constitutional No insomnia 09/17/2015 Constitutional No malaise 09/17/2015 Eyes No eye discharge 09/17/2015 Eyes No eye erythema 09/17/2015 Ears/Nose/Throat/Neck No dizziness 2015 Ears/Nose/Throat/Neck No headache 2015 Ears/Nose/Throat/Neck No nasal discharge 09/17/2015 Cardiovascular No chest pain/pressure Cardiovascular No dyspnea 09/17/2015 Cardiovascular No edema 09/17/2015 Respiratory No productive sputum 2015 Respiratory No chest congestion 2015 Respiratory No cough 09/17/2015 Gastrointestinal No constipation 2015 Gastrointestinal No nausea 09/17/2015 Gastrointestinal No vomiting 09/17/2015 Musculoskeletal No joint complaint 2015 Dermatologic No rash 09/17/2015 Dermatologic No sores 09/17/2015 Neurologic No alteration of consciousness 09/17/2015 Neurologic paresthesia 09/17/2015 Psychiatric No anxiety 09/17/2015 Psychiatric No depression 09/17/2015 Constitutional No recent illness 2015 Constitutional No chills 05/29/2015 Constitutional No diaphoresis 05/29/2015 Constitutional No fever 05/29/2015 Constitutional No insomnia 05/29/2015 Constitutional No malaise 05/29/2015 Eyes No eye discharge 05/29/2015 Eyes No eye erythema 05/29/2015 Ears/Nose/Throat/Neck No dizziness 2015 Ears/Nose/Throat/Neck No headache 2015 Ears/Nose/Throat/Neck No nasal discharge 05/29/2015 Cardiovascular No chest pain/pressure 05/2015 Cardiovascular No dyspnea 05/29/2015 Cardiovascular No edema 05/29/2015 Respiratory No productive sputum 2015 Respiratory No chest congestion 2015 Respiratory No cough 05/29/2015 Gastrointestinal No constipation 2015 Gastrointestinal diarrhea 05/29/2015 Gastrointestinal No nausea 05/29/2015 Gastrointestinal No vomiting 05/29/2015 Musculoskeletal No joint complaint 2015 Dermatologic No rash 05/29/2015 Dermatologic No sores 05/29/2015 Neurologic No alteration of consciousness 05/29/2015 Psychiatric No anxiety 05/29/2015 Psychiatric No depression 05/29/2015 Neurologic paresthesia 05/29/2015 Constitutional No recent illness 2014 Constitutional No chills 12/12/2014 Constitutional No diaphoresis 12/12/2014 Constitutional No fever 12/12/2014 Constitutional No insomnia 12/12/2014 Constitutional No malaise 12/12/2014 Constitutional weight loss 12/12/2014 Eyes No eye discharge 12/12/2014 Eyes No eye erythema 12/12/2014 Ears/Nose/Throat/Neck No dizziness 2014 Ears/Nose/Throat/Neck No headache 2014 Ears/Nose/Throat/Neck No nasal discharge 12/12/2014 Cardiovascular No chest pain/pressure Respiratory No productive sputum 2014 Respiratory No chest congestion 2014 Respiratory No cough 12/12/2014 Gastrointestinal No constipation 2014 Gastrointestinal diarrhea 12/12/2014 Gastrointestinal No nausea 12/12/2014 Gastrointestinal No vomiting 12/12/2014 Musculoskeletal No joint complaint 2014 Dermatologic No rash 12/12/2014 Dermatologic No sores 12/12/2014 Neurologic No alteration of consciousness 12/12/2014 Psychiatric No anxiety 12/12/2014 Psychiatric No depression 12/12/2014 Cardiovascular No dyspnea 12/12/2014 Cardiovascular No edema 12/12/2014 Cardiovascular hypertension 12/12/2014 Constitutional No recent illness 2014 Constitutional No anorexia 11/22/2014 Constitutional No night sweats 2014 Constitutional No chills 11/22/2014 Constitutional No diaphoresis 11/22/2014 Constitutional No fatigue 11/22/2014 Constitutional No fever 11/22/2014 Constitutional No insomnia 11/22/2014 Constitutional No malaise 11/22/2014 Constitutional No weight loss 11/22/2014 Constitutional No weight gain 11/22/2014 Ears/Nose/Throat/Neck No nasal discharge 11/22/2014 Ears/Nose/Throat/Neck No sore throat Cardiovascular No chest pain/pressure Cardiovascular No dyspnea 11/22/2014 Respiratory No chest congestion 2014 Respiratory No cigarette smoking 2014 Respiratory No dyspnea 11/22/2014 Gastrointestinal abdominal pain 2014 Gastrointestinal No constipation 2014 Gastrointestinal diarrhea 11/22/2014 Gastrointestinal No nausea 11/22/2014 Gastrointestinal No vomiting 11/22/2014 Genitourinary/Nephrology No dysuria 11/22 Genitourinary/Nephrology No hematuria Musculoskeletal No stiffness 11/22/2014 Musculoskeletal No swelling 11/22/2014 Musculoskeletal No back pain 11/22/2014 Musculoskeletal No joint complaint 2014 Dermatologic rash 11/22/2014 Dermatologic No sores 11/22/2014 Neurologic No dizziness 11/22/2014 Neurologic No gait abnormality 2014 Neurologic No headache 11/22/2014 Neurologic No memory loss 11/22/2014 Psychiatric No anxiety 11/22/2014 Psychiatric No depression 11/22/2014 Eyes No eye pain 11/22/2014 Ears/Nose/Throat/Neck No headache 2014 Ears/Nose/Throat/Neck No neck swelling Constitutional No fever 11/14/2014 Constitutional No chills 11/14/2014 Constitutional No night sweats 2014 Respiratory No dyspnea 11/14/2014 Respiratory No chest congestion 2014 Respiratory No cigarette smoking 2014 Gastrointestinal abdominal pain 2014 Gastrointestinal No constipation 2014 Gastrointestinal No nausea 11/14/2014 Gastrointestinal No vomiting 11/14/2014 Genitourinary/Nephrology No dysuria 11/14 Genitourinary/Nephrology No hematuria Dermatologic No rash 11/14/2014 Dermatologic No sores 11/14/2014 Constitutional No diaphoresis 11/14/2014 Constitutional No fatigue 11/14/2014 Constitutional No anorexia 11/14/2014 Constitutional No recent illness 2014 Constitutional No insomnia 11/14/2014 Constitutional No malaise 11/14/2014 Constitutional No weight loss 11/14/2014 Constitutional No weight gain 11/14/2014 Ears/Nose/Throat/Neck No nasal discharge 11/14/2014 Ears/Nose/Throat/Neck No sore throat Cardiovascular No chest pain/pressure Cardiovascular No dyspnea 11/14/2014 Gastrointestinal diarrhea 11/14/2014 Musculoskeletal No stiffness 11/14/2014 Musculoskeletal No swelling 11/14/2014 Musculoskeletal No back pain 11/14/2014 Musculoskeletal No joint complaint 2014 Neurologic No headache 11/14/2014 Neurologic No memory loss 11/14/2014 Neurologic No dizziness 11/14/2014 Neurologic No gait abnormality 2014 Psychiatric No anxiety 11/14/2014 Psychiatric No depression 11/14/2014 Constitutional No recent illness 2014 Constitutional No chills 09/04/2014 Constitutional No diaphoresis 09/04/2014 Constitutional No fever 09/04/2014 Constitutional No insomnia 09/04/2014 Constitutional No malaise 09/04/2014 Constitutional weight loss 09/04/2014 Eyes No eye discharge 09/04/2014 Eyes No eye erythema 09/04/2014 Ears/Nose/Throat/Neck No dizziness 2014 Ears/Nose/Throat/Neck No headache 2014 Ears/Nose/Throat/Neck No nasal discharge 09/04/2014 Cardiovascular No chest pain/pressure 02/2015 Respiratory No productive sputum 2014 Respiratory No chest congestion 2014 Respiratory No cough 09/04/2014 Gastrointestinal No constipation 2014 Gastrointestinal diarrhea 09/04/2014 Gastrointestinal No nausea 09/04/2014 Gastrointestinal No vomiting 09/04/2014 Musculoskeletal No joint complaint 2014 Dermatologic No rash 09/04/2014 Dermatologic No sores 09/04/2014 Neurologic No alteration of consciousness 09/04/2014 Psychiatric No anxiety 09/04/2014 Psychiatric No depression 09/04/2014 Constitutional No recent illness 2014 Constitutional No anorexia 08/04/2014 Constitutional No night sweats 2014 Constitutional No chills 08/04/2014 Constitutional No diaphoresis 08/04/2014 Constitutional fatigue 08/04/2014 Constitutional No fever 08/04/2014 Constitutional No insomnia 08/04/2014 Constitutional No malaise 08/04/2014 Constitutional weight loss 08/04/2014 Eyes No eye discharge 08/04/2014 Eyes No eye erythema 08/04/2014 Ears/Nose/Throat/Neck No dizziness 2014 Ears/Nose/Throat/Neck No headache 2014 Ears/Nose/Throat/Neck No nasal discharge 08/04/2014 Cardiovascular No chest pain/pressure 01/2015 Respiratory No productive sputum 2014 Respiratory No chest congestion 2014 Respiratory No cough 08/04/2014 Gastrointestinal No constipation 2014 Gastrointestinal diarrhea 08/04/2014 Gastrointestinal No nausea 08/04/2014 Gastrointestinal No vomiting 08/04/2014 Genitourinary/Nephrology No dysuria 08/04 Genitourinary/Nephrology No flank pain Genitourinary/Nephrology No hematuria 01/2015 Genitourinary/Nephrology No urinary urgency 08/04/2014 Genitourinary/Nephrology No urinary frequency 08/04/2014 Musculoskeletal No joint complaint 2014 Dermatologic No rash 08/04/2014 Dermatologic No sores 08/04/2014 Neurologic No alteration of consciousness 08/04/2014 Psychiatric No anxiety 08/04/2014 Psychiatric No depression 08/04/2014 Constitutional No anorexia 04/11/2014 Constitutional No recent illness 2013 Constitutional No night sweats 2013 Constitutional No chills 04/11/2014 Constitutional No diaphoresis 04/11/2014 Constitutional fatigue 04/11/2014 Constitutional No fever 04/11/2014 Constitutional No insomnia 04/11/2014 Constitutional No malaise 04/11/2014 Constitutional No weight loss 04/11/2014 Constitutional No weight gain 04/11/2014 Eyes No eye erythema 04/11/2014 Eyes No eye discharge 04/11/2014 Ears/Nose/Throat/Neck No dizziness 2013 Ears/Nose/Throat/Neck No headache 2013 Ears/Nose/Throat/Neck No nasal discharge 04/11/2014 Cardiovascular No chest pain/pressure Respiratory No productive sputum 2013 Respiratory No chest congestion 2013 Respiratory No cough 04/11/2014 Gastrointestinal No vomiting 04/11/2014 Gastrointestinal No nausea 04/11/2014 Gastrointestinal diarrhea 04/11/2014 Gastrointestinal No constipation 2013 Genitourinary/Nephrology No dysuria 04/11 Genitourinary/Nephrology No flank pain Genitourinary/Nephrology No hematuria Genitourinary/Nephrology No urinary frequency 04/11/2014 Genitourinary/Nephrology No urinary urgency 04/11/2014 Musculoskeletal No joint complaint 2013 Dermatologic No rash 04/11/2014 Dermatologic No sores 04/11/2014 Neurologic No alteration of consciousness 04/11/2014 Gastrointestinal abdominal pain 2013 Gastrointestinal No constipation 2013 Gastrointestinal diarrhea 01/05/2014 Gastrointestinal nausea 01/05/2014 Gastrointestinal No vomiting 01/05/2014 Genitourinary/Nephrology No dysuria 01/05 Genitourinary/Nephrology No urinary urgency 01/05/2014 Genitourinary/Nephrology No urinary frequency 01/05/2014 Respiratory No productive sputum 2013 Respiratory No chest congestion 2013 Respiratory cough 01/05/2014 Cardiovascular No chest pain/pressure 02/2014 Cardiovascular No dyspnea 01/05/2014 Cardiovascular No edema 01/05/2014 Ears/Nose/Throat/Neck nasal allergies 02/2014 Ears/Nose/Throat/Neck nasal discharge 02/2014 Ears/Nose/Throat/Neck No otalgia 2013 Ears/Nose/Throat/Neck No sore throat 02/2014 Eyes No eye erythema 01/05/2014 Eyes No eye discharge 01/05/2014 Constitutional No recent illness 2013 Constitutional No anorexia 01/05/2014 Constitutional No night sweats 2013 Constitutional No chills 01/05/2014 Constitutional No diaphoresis 01/05/2014 Constitutional No fatigue 01/05/2014 Constitutional No fever 01/05/2014 Constitutional No insomnia 01/05/2014 Constitutional No malaise 01/05/2014 Constitutional No weight loss 01/05/2014 Constitutional No weight gain 01/05/2014 Musculoskeletal No joint complaint 2013 Dermatologic No rash 01/05/2014 Dermatologic No sores 01/05/2014 Neurologic No alteration of consciousness 01/05/2014 Constitutional No recent illness 2013 Constitutional No anorexia 10/10/2013 Constitutional No night sweats 2013 Constitutional No chills 10/10/2013 Constitutional No diaphoresis 10/10/2013 Constitutional No fatigue 10/10/2013 Constitutional No fever 10/10/2013 Constitutional insomnia 10/10/2013 Constitutional No malaise 10/10/2013 Eyes No eye discharge 10/10/2013 Eyes No eye erythema 10/10/2013 Ears/Nose/Throat/Neck No dizziness 2013 Ears/Nose/Throat/Neck No headache 2013 Ears/Nose/Throat/Neck No nasal discharge 10/10/2013 Cardiovascular No chest pain/pressure Cardiovascular No dyspnea 10/10/2013 Cardiovascular No edema 10/10/2013 Respiratory No productive sputum 2013 Respiratory No chest congestion 2013 Respiratory No cough 10/10/2013 Gastrointestinal No abdominal pain 2013 Gastrointestinal No constipation 2013 Gastrointestinal No diarrhea 10/10/2013 Gastrointestinal No nausea 10/10/2013 Gastrointestinal No vomiting 10/10/2013 Dermatologic No rash 10/10/2013 Dermatologic No sores 10/10/2013 Psychiatric anxiety 10/10/2013 Psychiatric No depression 10/10/2013 Musculoskeletal shoulder pain 10/10/2013 Musculoskeletal joint complaint 2013 Constitutional No recent illness 2013 Constitutional No anorexia 08/02/2013 Constitutional No night sweats 2013 Constitutional No chills 08/02/2013 Constitutional No diaphoresis 08/02/2013 Constitutional No fatigue 08/02/2013 Constitutional No fever 08/02/2013 Constitutional insomnia 08/02/2013 Constitutional No malaise 08/02/2013 Eyes No eye discharge 08/02/2013 Eyes No eye erythema 08/02/2013 Ears/Nose/Throat/Neck No dizziness 2013 Ears/Nose/Throat/Neck No headache 2013 Ears/Nose/Throat/Neck No nasal discharge 08/02/2013 Cardiovascular No chest pain/pressure 11/2013 Cardiovascular No dyspnea 08/02/2013 Cardiovascular No edema 08/02/2013 Respiratory No productive sputum 2013 Respiratory No chest congestion 2013 Respiratory No cough 08/02/2013 Gastrointestinal No abdominal pain 2013 Gastrointestinal No constipation 2013 Gastrointestinal No diarrhea 08/02/2013 Gastrointestinal No nausea 08/02/2013 Gastrointestinal No vomiting 08/02/2013 Musculoskeletal joint complaint 2013 Musculoskeletal shoulder pain 08/02/2013 Dermatologic No rash 08/02/2013 Dermatologic No sores 08/02/2013 Psychiatric anxiety 08/02/2013 Psychiatric No depression 08/02/2013 Constitutional recent illness 06/30/2013 Constitutional chills 06/30/2013 Constitutional night sweats 06/30/2013 Constitutional diaphoresis 06/30/2013 Constitutional fatigue 06/30/2013 Constitutional No fever 06/30/2013 Constitutional No anorexia 06/30/2013 Eyes No eye discharge 06/30/2013 Eyes No eye erythema 06/30/2013 Cardiovascular No chest pain/pressure 09/2013 Gastrointestinal No abdominal pain 2013 Gastrointestinal No diarrhea 06/30/2013 Gastrointestinal No constipation 2013 Gastrointestinal No vomiting 06/30/2013 Gastrointestinal No nausea 06/30/2013 Genitourinary/Nephrology No dysuria 06/30 Dermatologic No rash 06/30/2013 Musculoskeletal arthralgia(s) 06/30/2013 Dermatologic No sores 06/30/2013 Neurologic No alteration of consciousness 06/30/2013 Constitutional No recent illness 2013 Constitutional No anorexia 06/20/2013 Constitutional No night sweats 2013 Constitutional No chills 06/20/2013 Constitutional No diaphoresis 06/20/2013 Constitutional No fatigue 06/20/2013 Constitutional No fever 06/20/2013 Constitutional No insomnia 06/20/2013 Constitutional No malaise 06/20/2013 Eyes No eye discharge 06/20/2013 Eyes No eye erythema 06/20/2013 Ears/Nose/Throat/Neck No dizziness 2013 Ears/Nose/Throat/Neck No headache 2013 Ears/Nose/Throat/Neck No nasal discharge 06/20/2013 Cardiovascular No chest pain/pressure Cardiovascular No dyspnea 06/20/2013 Cardiovascular No edema 06/20/2013 Respiratory No productive sputum 2013 Respiratory No chest congestion 2013 Respiratory No cough 06/20/2013 Gastrointestinal No abdominal pain 2013 Gastrointestinal No constipation 2013 Gastrointestinal No diarrhea 06/20/2013 Gastrointestinal No nausea 06/20/2013 Gastrointestinal No vomiting 06/20/2013 Dermatologic No rash 06/20/2013 Dermatologic No sores 06/20/2013 Psychiatric No anxiety 06/20/2013 Psychiatric No depression 06/20/2013 Constitutional No recent illness 2013 Constitutional No chills 06/06/2013 Constitutional No fatigue 06/06/2013 Constitutional No fever 06/06/2013 Constitutional No insomnia 06/06/2013 Constitutional No malaise 06/06/2013 Cardiovascular No chest pain/pressure 01/2014 Cardiovascular No dyspnea 06/06/2013 Cardiovascular No edema 06/06/2013 Cardiovascular No exercise intolerance Cardiovascular No fatigue 06/06/2013 Cardiovascular No near-syncope/dizziness 06/06/2013 Respiratory No chest tightness 2013 Respiratory No cigarette smoking 2013 Respiratory No cough 06/06/2013 Respiratory No dyspnea 06/06/2013 Respiratory No pedal edema 06/06/2013 Respiratory No snoring 06/06/2013 Respiratory No wheezing 06/06/2013 Psychiatric No anxiety 06/06/2013 Psychiatric No depression 06/06/2013 Constitutional No anorexia 02/21/2013 Constitutional No night sweats 2012 Constitutional No chills 02/21/2013 Constitutional No diaphoresis 02/21/2013 Constitutional No insomnia 02/21/2013 Eyes No eye discharge 02/21/2013 Eyes No eye erythema 02/21/2013 Ears/Nose/Throat/Neck No dizziness 2012 Ears/Nose/Throat/Neck No headache 2012 Ears/Nose/Throat/Neck No nasal discharge 02/21/2013 Cardiovascular No chest pain/pressure Cardiovascular No dyspnea 02/21/2013 Cardiovascular No edema 02/21/2013 Gastrointestinal No abdominal pain 2012 Gastrointestinal No constipation 2012 Gastrointestinal No diarrhea 02/21/2013 Gastrointestinal No nausea 02/21/2013 Gastrointestinal No vomiting 02/21/2013 Dermatologic No rash 02/21/2013 Dermatologic No sores 02/21/2013 Psychiatric No anxiety 02/21/2013 Psychiatric No depression 02/21/2013 Constitutional No recent illness 2012 Constitutional No anorexia 12/13/2012 Constitutional No night sweats 2012 Constitutional No chills 12/13/2012 Constitutional No diaphoresis 12/13/2012 Constitutional No fatigue 12/13/2012 Constitutional No fever 12/13/2012 Constitutional No insomnia 12/13/2012 Constitutional No malaise 12/13/2012 Eyes No eye discharge 12/13/2012 Eyes No eye erythema 12/13/2012 Ears/Nose/Throat/Neck No dizziness 2012 Ears/Nose/Throat/Neck No headache 2012 Ears/Nose/Throat/Neck No nasal discharge 12/13/2012 Cardiovascular No chest pain/pressure Cardiovascular No dyspnea 12/13/2012 Cardiovascular No edema 12/13/2012 Respiratory No productive sputum 2012 Respiratory No chest congestion 2012 Respiratory No cough 12/13/2012 Gastrointestinal No abdominal pain 2012 Gastrointestinal No constipation 2012 Gastrointestinal No diarrhea 12/13/2012 Gastrointestinal No nausea 12/13/2012 Gastrointestinal No vomiting 12/13/2012 Dermatologic No rash 12/13/2012 Dermatologic No sores 12/13/2012 Psychiatric No anxiety 12/13/2012 Psychiatric No depression 12/13/2012 Constitutional No recent illness 2012 Constitutional No anorexia 09/23/2012 Constitutional No night sweats 2012 Constitutional No chills 09/23/2012 Constitutional No diaphoresis 09/23/2012 Constitutional No fatigue 09/23/2012 Constitutional No fever 09/23/2012 Constitutional No insomnia 09/23/2012 Constitutional No malaise 09/23/2012 Eyes No eye discharge 09/23/2012 Eyes No eye erythema 09/23/2012 Ears/Nose/Throat/Neck No dizziness 2012 Ears/Nose/Throat/Neck No headache 2012 Ears/Nose/Throat/Neck No nasal discharge 09/23/2012 Cardiovascular No chest pain/pressure Cardiovascular No dyspnea 09/23/2012 Cardiovascular No edema 09/23/2012 Respiratory No productive sputum 2012 Respiratory No chest congestion 2012 Respiratory No cough 09/23/2012 Gastrointestinal No abdominal pain 2012 Gastrointestinal No constipation 2012 Gastrointestinal No diarrhea 09/23/2012 Gastrointestinal No nausea 09/23/2012 Gastrointestinal No vomiting 09/23/2012 Genitourinary/Nephrology No dysuria 09/23 Musculoskeletal No joint complaint 2012 Dermatologic No rash 09/23/2012 Dermatologic No sores 09/23/2012 Constitutional No recent illness 2012 Constitutional No anorexia 06/14/2012 Constitutional No night sweats 2012 Constitutional No chills 06/14/2012 Constitutional No diaphoresis 06/14/2012 Constitutional No fatigue 06/14/2012 Constitutional No fever 06/14/2012 Constitutional No insomnia 06/14/2012 Constitutional No malaise 06/14/2012 Eyes No eye discharge 06/14/2012 Eyes No eye erythema 06/14/2012 Ears/Nose/Throat/Neck No dizziness 2012 Ears/Nose/Throat/Neck No headache 2012 Ears/Nose/Throat/Neck No nasal discharge 06/14/2012 Cardiovascular No chest pain/pressure Cardiovascular No dyspnea 06/14/2012 Cardiovascular No edema 06/14/2012 Respiratory No productive sputum 2012 Respiratory No chest congestion 2012 Respiratory No cough 06/14/2012 Gastrointestinal No abdominal pain 2012 Gastrointestinal No constipation 2012 Gastrointestinal No diarrhea 06/14/2012 Gastrointestinal No nausea 06/14/2012 Gastrointestinal No vomiting 06/14/2012 Genitourinary/Nephrology No dysuria 06/14 Musculoskeletal No joint complaint 2012 Dermatologic No sores 06/14/2012 Dermatologic No rash 06/14/2012 Musculoskeletal joint complaint 2012 Constitutional recent illness 05/21/2012 Constitutional No anorexia 05/21/2012 Constitutional No night sweats 2012 Constitutional chills 05/21/2012 Constitutional diaphoresis 05/21/2012 Constitutional fatigue 05/21/2012 Constitutional fever 05/21/2012 Constitutional No insomnia 05/21/2012 Eyes No eye discharge 05/21/2012 Eyes No eye erythema 05/21/2012 Ears/Nose/Throat/Neck dizziness 2012 Ears/Nose/Throat/Neck headache 2012 Ears/Nose/Throat/Neck nasal allergies Ears/Nose/Throat/Neck nasal discharge Ears/Nose/Throat/Neck No otalgia 2012 Ears/Nose/Throat/Neck sinus congestion Ears/Nose/Throat/Neck sore throat 2012 Cardiovascular No chest pain/pressure Gastrointestinal No abdominal pain 2012 Gastrointestinal No constipation 2012 Gastrointestinal diarrhea 05/21/2012 Gastrointestinal No nausea 05/21/2012 Genitourinary/Nephrology No dysuria 05/21 Dermatologic No sores 05/21/2012 Dermatologic No rash 05/21/2012 Physical Exam Exam Name System Name Item Name Status Result Effective Dates Notes Full Exam - ENT Constitutional general appearance Overall: well nourished 02/22/2018 None Full Exam - ENT Constitutional general appearance Overall: well developed 02/22/2018 None Full Exam - ENT Constitutional general appearance Overall: in no acute distress 02/22/2018 None Full Exam - ENT Ears/Nose/Throat otoscopic exam Overall: external auditory canals normal 02/22/2018 None Full Exam - ENT Ears/Nose/Throat otoscopic exam Left tympanic membrane: air -fluid level 02/22/2018 None Full Exam - ENT Ears/Nose/Throat otoscopic exam Right tympanic membrane: air-fluid level 02/22/2018 None Full Exam - ENT Ears/Nose/Throat nasal mucosa, septum, turbinates Drainage: clear 02/22/2018 None Full Exam - ENT Ears/Nose/Throat nasal mucosa, septum, turbinates Drainage: yellow 02/22/2018 None Full Exam - ENT Ears/Nose/Throat lips/ teeth/gingiva Overall: benign lips 02/22/2018 None Full Exam - ENT Ears/Nose/Throat oropharynx Posterior Pharynx: clear post nasal drainage 02/22/2018 None Full Exam - ENT Face and Head palpation Left maxillary sinus: tender 02/22/2018 None Full Exam - ENT Face and Head palpation Right maxillary sinus: tender 02/22/2018 None Full Exam - ENT Respiratory inspection Overall: no retractions 02/22/2018 None Full Exam - ENT Respiratory inspection Overall: normal rate None Full Exam - ENT Respiratory auscultation Overall: breath sounds clear bilaterally 02/22/2018 None Full Exam - ENT Cardiovascular auscultation of heart Overall: regular rate 02/22/2018 None Full Exam - ENT Cardiovascular auscultation of heart Overall: normal heart sounds 02/22/2018 None Full Exam - ENT Lymphatic palpation of lymph nodes Overall: anterior cervical chain benign 02/22/2018 None Full Exam - ENT Lymphatic palpation of lymph nodes Overall: posterior cervical chain benign 02/22/2018 None Full Exam - ENT Neurologic mood and affect Overall: normal mood 02/22/2018 None Full Exam - ENT Neurologic mood and affect Overall: normal affect 02/22/2018 None Full Exam - ENT Neurologic orientation Overall: oriented to person, place and time 02/22/2018 None Full Exam - ENT Musculoskeletal gait and station Overall: normal station 02/22/2018 None Full Exam - ENT Musculoskeletal gait and station Overall: normal gait 02/22/2018 None Full Exam - ENT Musculoskeletal head and neck Overall: head atraumatic 02/22/2018 None Full Exam - ENT Musculoskeletal left upper extremity Palpation - left wrist: tender 02/22/2018 mild Full Exam - ENT Integument inspection of skin Location: back left upper - AK- cryotherapy to irritated lesion Full Exam - General 1994 Constitutional general appearance Overall: well developed 01/07/2018 None Full Exam - General 1994 Constitutional general appearance Overall: in no acute distress 01/07/2018 None Full Exam - General 1994 Constitutional general appearance Overall: well nourished 01/07/2018 None Full Exam - General 1994 Eyes conjunctiva /eyelids Overall: conjunctiva clear 01/07/2018 None Full Exam - General 1994 Eyes conjunctiva /eyelids Overall: cornea clear 01/07/2018 None Full Exam - General 1994 Eyes conjunctiva /eyelids Overall: eyelids normal 01/07/2018 None Full Exam - General 1994 Ears/Nose/Throat otoscopic exam Overall: external auditory canals clear 01/07/2018 None Full Exam - General 1994 Ears/Nose/Throat otoscopic exam Overall: tympanic membranes clear 01/07/2018 None Full Exam - General 1994 Ears/Nose/Throat lips/teeth/gingiva Overall: benign lips 01/07/2018 None Full Exam - General 1994 Ears/Nose/Throat oral cavity/pharynx/larynx Overall: oral mucosa clear 01/07/2018 None Full Exam - General 1994 Ears/Nose/Throat oral cavity/pharynx/larynx Overall: oropharyngeal mucosa clear 01/07/2018 None Full Exam - General 1994 Respiratory auscultation Overall: breath sounds clear bilaterally 01/07/2018 None Full Exam - General 1994 Respiratory respiratory effort/rhythm Overall: no retractions 01/07/2018 None Full Exam - General 1994 Respiratory respiratory effort/rhythm Overall: normal rate 01/07/2018 None Full Exam - General 1994 Cardiovascular extremities Overall: no clubbing 01/07/2018 None Full Exam - General 1994 Cardiovascular auscultation of heart Overall: regular rate 01/07/2018 None Full Exam - General 1994 Cardiovascular auscultation of heart Overall: normal heart sounds 01/07/2018 None Full Exam - General 1994 Abdomen abdominal exam Overall: normal bowel sounds 01/07/2018 None Full Exam - General 1994 Lymphatic neck nodes Overall: anterior cervical chain benign 01/07/2018 None Full Exam - General 1994 Lymphatic neck nodes Overall: posterior cervical chain benign 01/07/2018 None Full Exam - General 1994 Musculoskeletal head and neck Overall: head atraumatic 01/07/2018 None Full Exam - General 1994 Neurologic cranial nerves Overall: crainial nerves 2 - 12 grossly intact 01/07/2018 None Full Exam - General 1994 Psychiatric orientation/consciousness Overall: oriented to person, place and time 01/07/2018 None Full Exam - General 1994 Psychiatric mood and affect Overall: normal mood and affect 01/07/2018 None Full Exam - General 1994 Constitutional general appearance Overall: well developed 10/01/2017 None Full Exam - General 1994 Constitutional general appearance Overall: in no acute distress 10/01/2017 None Full Exam - General 1994 Constitutional general appearance Overall: well nourished 10/01/2017 None Full Exam - General 1994 Eyes conjunctiva /eyelids Overall: conjunctiva clear 10/01/2017 None Full Exam - General 1994 Eyes conjunctiva /eyelids Overall: cornea clear 10/01/2017 None Full Exam - General 1994 Eyes conjunctiva /eyelids Overall: eyelids normal 10/01/2017 None Full Exam - General 1994 Eyes pupils and irises Overall: pupils equal, round, reactive to light and accomodation 10/01/2017 None Full Exam - General 1994 Ears/Nose/Throat otoscopic exam Overall: external auditory canals clear 10/01/2017 None Full Exam - General 1994 Ears/Nose/Throat otoscopic exam Overall: tympanic membranes clear 10/01/2017 None Full Exam - General 1994 Ears/Nose/Throat lips/teeth/gingiva Overall: benign lips 10/01/2017 None Full Exam - General 1994 Ears/Nose/Throat oral cavity/pharynx/larynx Overall: oral mucosa clear 10/01/2017 None Full Exam - General 1994 Ears/Nose/Throat oral cavity/pharynx/larynx Overall: oropharyngeal mucosa clear 10/01/2017 None Full Exam - General 1994 Respiratory auscultation Overall: breath sounds clear bilaterally 10/01/2017 None Full Exam - General 1994 Respiratory respiratory effort/rhythm Overall: no retractions 10/01/2017 None Full Exam - General 1994 Respiratory respiratory effort/rhythm Overall: normal rate 10/01/2017 None Full Exam - General 1994 Cardiovascular extremities Overall: no clubbing 10/01/2017 None Full Exam - General 1994 Cardiovascular auscultation of heart Overall: regular rate 10/01/2017 None Full Exam - General 1994 Cardiovascular auscultation of heart Overall: normal heart sounds 10/01/2017 None Full Exam - General 1994 Abdomen abdominal exam Overall: normal bowel sounds 10/01/2017 None Full Exam - General 1994 Lymphatic neck nodes Overall: anterior cervical chain benign 10/01/2017 None Full Exam - General 1994 Lymphatic neck nodes Overall: posterior cervical chain benign 10/01/2017 None Full Exam - General 1994 Musculoskeletal head and neck Overall: head atraumatic 10/01/2017 None Full Exam - General 1994 Neurologic cranial nerves Overall: crainial nerves 2 - 12 grossly intact 10/01/2017 None Full Exam - General 1994 Psychiatric orientation/consciousness Overall: oriented to person, place and time 10/01/2017 None Full Exam - General 1994 Psychiatric mood and affect Overall: normal mood and affect 10/01/2017 None Full Exam - General 1994 Constitutional general appearance Overall: well developed 06/08/2017 None Full Exam - General 1994 Constitutional general appearance Overall: in no acute distress 06/08/2017 None Full Exam - General 1994 Constitutional general appearance Overall: well nourished 06/08/2017 None Full Exam - General 1994 Eyes conjunctiva /eyelids Overall: conjunctiva clear 06/08/2017 None Full Exam - General 1994 Eyes conjunctiva /eyelids Overall: cornea clear 06/08/2017 None Full Exam - General 1994 Eyes conjunctiva /eyelids Overall: eyelids normal 06/08/2017 None Full Exam - General 1994 Eyes pupils and irises Overall: pupils equal, round, reactive to light and accomodation 06/08/2017 None Full Exam - General 1994 Ears/Nose/Throat otoscopic exam Overall: external auditory canals clear 06/08/2017 None Full Exam - General 1994 Ears/Nose/Throat otoscopic exam Overall: tympanic membranes clear 06/08/2017 None Full Exam - General 1994 Ears/Nose/Throat oral cavity/pharynx/larynx Overall: oral mucosa clear 06/08/2017 None Full Exam - General 1994 Ears/Nose/Throat oral cavity/pharynx/larynx Overall: oropharyngeal mucosa clear 06/08/2017 None Full Exam - General 1994 Respiratory auscultation Overall: breath sounds clear bilaterally 06/08/2017 None Full Exam - General 1994 Respiratory respiratory effort/rhythm Overall: no retractions 06/08/2017 None Full Exam - General 1994 Respiratory respiratory effort/rhythm Overall: normal rate 06/08/2017 None Full Exam - General 1994 Cardiovascular extremities Overall: no clubbing 06/08/2017 None Full Exam - General 1994 Cardiovascular auscultation of heart Overall: regular rate 06/08/2017 None Full Exam - General 1994 Cardiovascular auscultation of heart Overall: normal heart sounds 06/08/2017 None Full Exam - General 1994 Cardiovascular auscultation of heart Overall: no murmurs 06/08/2017 None Full Exam - General 1994 Abdomen abdominal exam Overall: no tenderness 06/08/2017 None Full Exam - General 1994 Abdomen abdominal exam Overall: normal bowel sounds 06/08/2017 None Full Exam - General 1994 Lymphatic neck nodes Overall: anterior cervical chain benign 06/08/2017 None Full Exam - General 1994 Lymphatic neck nodes Overall: posterior cervical chain benign 06/08/2017 None Full Exam - General 1994 Musculoskeletal head and neck Overall: head atraumatic 06/08/2017 None Full Exam - General 1994 Musculoskeletal head and neck Overall: cervical spine benign 06/08/2017 None Full Exam - General 1994 Neurologic cranial nerves Overall: crainial nerves 2 - 12 grossly intact 06/08/2017 None Full Exam - General 1994 Psychiatric orientation/consciousness Overall: oriented to person, place and time 06/08/2017 None Full Exam - General 1994 Ears/Nose/Throat lips/teeth/gingiva Overall: benign lips 06/08/2017 None Full Exam - General 1994 Psychiatric mood and affect Overall: normal mood and affect 06/08/2017 None Full Exam - General 1994 Constitutional general appearance Overall: well developed 11/12/2016 None Full Exam - General 1994 Constitutional general appearance Overall: in no acute distress 11/12/2016 None Full Exam - General 1994 Constitutional general appearance Overall: well nourished 11/12/2016 None Full Exam - General 1994 Eyes conjunctiva /eyelids Overall: conjunctiva clear 11/12/2016 None Full Exam - General 1994 Eyes conjunctiva /eyelids Overall: cornea clear 11/12/2016 None Full Exam - General 1994 Eyes conjunctiva /eyelids Overall: eyelids normal 11/12/2016 None Full Exam - General 1994 Eyes pupils and irises Overall: pupils equal, round, reactive to light and accomodation 11/12/2016 None Full Exam - General 1994 Respiratory auscultation Overall: breath sounds clear bilaterally 11/12/2016 None Full Exam - General 1994 Respiratory respiratory effort/rhythm Overall: no retractions 11/12/2016 None Full Exam - General 1994 Respiratory respiratory effort/rhythm Overall: normal rate 11/12/2016 None Full Exam - General 1994 Cardiovascular extremities Overall: no clubbing 11/12/2016 None Full Exam - General 1994 Cardiovascular auscultation of heart Overall: regular rate 11/12/2016 None Full Exam - General 1994 Cardiovascular auscultation of heart Overall: normal heart sounds 11/12/2016 None Full Exam - General 1994 Cardiovascular auscultation of heart Overall: no murmurs 11/12/2016 None Full Exam - General 1994 Abdomen abdominal exam Overall: no tenderness 11/12/2016 None Full Exam - General 1994 Abdomen abdominal exam Overall: normal bowel sounds 11/12/2016 None Full Exam - General 1994 Musculoskeletal head and neck Overall: head atraumatic 11/12/2016 None Full Exam - General 1994 Musculoskeletal head and neck Overall: cervical spine benign 11/12/2016 None Full Exam - General 1994 Integument inspection of skin Location: neck 11/12/2016 scar that puckers with swallowing Full Exam - General 1994 Neurologic cranial nerves Overall: crainial nerves 2 - 12 grossly intact 11/12/2016 None Full Exam - General 1994 Psychiatric orientation/consciousness Overall: oriented to person, place and time 11/12/2016 None Full Exam - General 1994 Ears/Nose/Throat otoscopic exam Overall: tympanic membranes clear 11/12/2016 None Full Exam - General 1994 Ears/Nose/Throat otoscopic exam Overall: external auditory canals clear 11/12/2016 None Full Exam - General 1994 Ears/Nose/Throat oral cavity/pharynx/larynx Overall: oropharyngeal mucosa clear 11/12/2016 None Full Exam - General 1994 Ears/Nose/Throat oral cavity/pharynx/larynx Overall: no masses 11/12/2016 None Full Exam - General 1994 Ears/Nose/Throat oral cavity/pharynx/larynx Overall: oral mucosa clear 11/12/2016 None Full Exam - General 1994 Lymphatic neck nodes Overall: anterior cervical chain benign 11/12/2016 None Full Exam - General 1994 Lymphatic neck nodes Overall: posterior cervical chain benign 11/12/2016 None Full Exam - General 1994 Constitutional general appearance Overall: well developed 09/16/2016 None Full Exam - General 1994 Constitutional general appearance Overall: in no acute distress 09/16/2016 None Full Exam - General 1994 Constitutional general appearance Overall: well nourished 09/16/2016 None Full Exam - General 1994 Eyes conjunctiva /eyelids Overall: conjunctiva clear 09/16/2016 None Full Exam - General 1994 Eyes conjunctiva /eyelids Overall: cornea clear 09/16/2016 None Full Exam - General 1994 Eyes conjunctiva /eyelids Overall: eyelids normal 09/16/2016 None Full Exam - General 1994 Eyes pupils and irises Overall: pupils equal, round, reactive to light and accomodation 09/16/2016 None Full Exam - General 1994 Ears/Nose/Throat otoscopic exam Overall: external auditory canals clear 09/16/2016 None Full Exam - General 1994 Ears/Nose/Throat otoscopic exam Overall: tympanic membranes clear 09/16/2016 None Full Exam - General 1994 Ears/Nose/Throat oral cavity/pharynx/larynx Overall: oral mucosa clear 09/16/2016 None Full Exam - General 1994 Ears/Nose/Throat oral cavity/pharynx/larynx Overall: oropharyngeal mucosa clear 09/16/2016 None Full Exam - General 1994 Ears/Nose/Throat oral cavity/pharynx/larynx Overall: no masses 09/16/2016 None Full Exam - General 1994 Respiratory auscultation Overall: breath sounds clear bilaterally 09/16/2016 None Full Exam - General 1994 Respiratory respiratory effort/rhythm Overall: no retractions 09/16/2016 None Full Exam - General 1994 Respiratory respiratory effort/rhythm Overall: normal rate 09/16/2016 None Full Exam - General 1994 Cardiovascular auscultation of heart Overall: regular rate 09/16/2016 None Full Exam - General 1994 Cardiovascular auscultation of heart Overall: normal heart sounds 09/16/2016 None Full Exam - General 1994 Cardiovascular auscultation of heart Overall: no murmurs 09/16/2016 None Full Exam - General 1994 Abdomen abdominal exam Overall: no tenderness 09/16/2016 None Full Exam - General 1994 Abdomen abdominal exam Overall: normal bowel sounds 09/16/2016 None Full Exam - General 1994 Lymphatic neck nodes Overall: anterior cervical chain benign 09/16/2016 None Full Exam - General 1994 Lymphatic neck nodes Overall: posterior cervical chain benign 09/16/2016 None Full Exam - General 1994 Musculoskeletal digits and nails Overall: no clubbing 09/16/2016 None Full Exam - General 1994 Musculoskeletal digits and nails Overall: digits benign 09/16/2016 None Full Exam - General 1994 Neurologic cranial nerves Overall: crainial nerves 2 - 12 grossly intact 09/16/2016 None Full Exam - General 1994 Psychiatric orientation/consciousness Overall: oriented to person, place and time 09/16/2016 None Full Exam - General 1994 Constitutional general appearance Overall: well developed 08/11/2016 None Full Exam - General 1994 Constitutional general appearance Overall: in no acute distress 08/11/2016 None Full Exam - General 1994 Constitutional general appearance Overall: well nourished 08/11/2016 None Full Exam - General 1994 Eyes conjunctiva /eyelids Overall: conjunctiva clear 08/11/2016 None Full Exam - General 1994 Eyes conjunctiva /eyelids Overall: cornea clear 08/11/2016 None Full Exam - General 1994 Eyes conjunctiva /eyelids Overall: eyelids normal 08/11/2016 None Full Exam - General 1994 Eyes pupils and irises Overall: pupils equal, round, reactive to light and accomodation 08/11/2016 None Full Exam - General 1994 Respiratory auscultation Overall: breath sounds clear bilaterally 08/11/2016 None Full Exam - General 1994 Respiratory respiratory effort/rhythm Overall: no retractions 08/11/2016 None Full Exam - General 1994 Respiratory respiratory effort/rhythm Overall: normal rate 08/11/2016 None Full Exam - General 1994 Cardiovascular extremities Overall: no clubbing 08/11/2016 None Full Exam - General 1994 Cardiovascular auscultation of heart Overall: regular rate 08/11/2016 None Full Exam - General 1994 Cardiovascular auscultation of heart Overall: normal heart sounds 08/11/2016 None Full Exam - General 1994 Cardiovascular auscultation of heart Overall: no murmurs 08/11/2016 None Full Exam - General 1994 Musculoskeletal head and neck Overall: head atraumatic 08/11/2016 None Full Exam - General 1994 Musculoskeletal head and neck Overall: cervical spine benign 08/11/2016 None Full Exam - General 1994 Integument inspection of skin Location: neck 08/11/2016 scar that puckers with swallowing Full Exam - General 1994 Neurologic cranial nerves Overall: crainial nerves 2 - 12 grossly intact 08/11/2016 None Full Exam - General 1994 Psychiatric orientation/consciousness Overall: oriented to person, place and time 08/11/2016 None Full Exam - General 1994 Abdomen abdominal exam Overall: no tenderness 08/11/2016 None Full Exam - General 1994 Abdomen abdominal exam Overall: normal bowel sounds 08/11/2016 None Full Exam - General 1994 Constitutional general appearance Overall: well developed 03/31/2016 None Full Exam - General 1994 Constitutional general appearance Overall: in no acute distress 03/31/2016 None Full Exam - General 1994 Constitutional general appearance Overall: well nourished 03/31/2016 None Full Exam - General 1994 Eyes conjunctiva /eyelids Overall: conjunctiva clear 03/31/2016 None Full Exam - General 1994 Eyes conjunctiva /eyelids Overall: cornea clear 03/31/2016 None Full Exam - General 1994 Eyes conjunctiva /eyelids Overall: eyelids normal 03/31/2016 None Full Exam - General 1994 Eyes pupils and irises Overall: pupils equal, round, reactive to light and accomodation 03/31/2016 None Full Exam - General 1994 Ears/Nose/Throat oral cavity/pharynx/larynx Overall: oral mucosa clear 03/31/2016 None Full Exam - General 1994 Ears/Nose/Throat oral cavity/pharynx/larynx Overall: oropharyngeal mucosa clear 03/31/2016 None Full Exam - General 1994 Ears/Nose/Throat oral cavity/pharynx/larynx Overall: no masses 03/31/2016 None Full Exam - General 1994 Respiratory auscultation Overall: breath sounds clear bilaterally 03/31/2016 None Full Exam - General 1994 Respiratory respiratory effort/rhythm Overall: no retractions 03/31/2016 None Full Exam - General 1994 Respiratory respiratory effort/rhythm Overall: normal rate 03/31/2016 None Full Exam - General 1994 Cardiovascular extremities Overall: no clubbing 03/31/2016 None Full Exam - General 1994 Cardiovascular auscultation of heart Overall: regular rate 03/31/2016 None Full Exam - General 1994 Cardiovascular auscultation of heart Overall: normal heart sounds 03/31/2016 None Full Exam - General 1994 Cardiovascular auscultation of heart Overall: no murmurs 03/31/2016 None Full Exam - General 1994 Musculoskeletal head and neck Overall: head atraumatic 03/31/2016 None Full Exam - General 1994 Musculoskeletal head and neck Overall: cervical spine benign 03/31/2016 None Full Exam - General 1994 Neurologic cranial nerves Overall: crainial nerves 2 - 12 grossly intact 03/31/2016 None Full Exam - General 1994 Psychiatric orientation/consciousness Overall: oriented to person, place and time 03/31/2016 None Full Exam - General 1994 Abdomen abdominal exam Overall: no tenderness 03/31/2016 None Full Exam - General 1994 Abdomen abdominal exam Overall: normal bowel sounds 03/31/2016 None Full Exam - General 1994 Constitutional general appearance Overall: well developed 02/01/2016 None Full Exam - General 1994 Constitutional general appearance Overall: in no acute distress 02/01/2016 None Full Exam - General 1994 Constitutional general appearance Overall: well nourished 02/01/2016 None Full Exam - General 1994 Eyes conjunctiva /eyelids Overall: conjunctiva clear 02/01/2016 None Full Exam - General 1994 Eyes conjunctiva /eyelids Overall: cornea clear 02/01/2016 None Full Exam - General 1994 Eyes conjunctiva /eyelids Overall: eyelids normal 02/01/2016 None Full Exam - General 1994 Eyes pupils and irises Overall: pupils equal, round, reactive to light and accomodation 02/01/2016 None Full Exam - General 1994 Ears/Nose/Throat otoscopic exam Overall: external auditory canals clear 02/01/2016 None Full Exam - General 1994 Ears/Nose/Throat otoscopic exam Overall: tympanic membranes clear 02/01/2016 None Full Exam - General 1994 Ears/Nose/Throat oral cavity/pharynx/larynx Overall: oral mucosa clear 02/01/2016 None Full Exam - General 1994 Ears/Nose/Throat oral cavity/pharynx/larynx Overall: oropharyngeal mucosa clear 02/01/2016 None Full Exam - General 1994 Ears/Nose/Throat oral cavity/pharynx/larynx Overall: no masses 02/01/2016 None Full Exam - General 1994 Respiratory respiratory effort/rhythm Overall: no retractions 02/01/2016 None Full Exam - General 1994 Respiratory respiratory effort/rhythm Overall: normal rate 02/01/2016 None Full Exam - General 1994 Cardiovascular auscultation of heart Overall: regular rate 02/01/2016 None Full Exam - General 1994 Cardiovascular auscultation of heart Overall: normal heart sounds 02/01/2016 None Full Exam - General 1994 Cardiovascular auscultation of heart Overall: no murmurs 02/01/2016 None Full Exam - General 1994 Abdomen abdominal exam Overall: no tenderness 02/01/2016 None Full Exam - General 1994 Abdomen abdominal exam Overall: normal bowel sounds 02/01/2016 None Full Exam - General 1994 Lymphatic neck nodes Overall: anterior cervical chain benign 02/01/2016 None Full Exam - General 1994 Lymphatic neck nodes Overall: posterior cervical chain benign 02/01/2016 None Full Exam - General 1994 Musculoskeletal digits and nails Overall: no clubbing 02/01/2016 None Full Exam - General 1994 Musculoskeletal digits and nails Overall: digits benign 02/01/2016 None Full Exam - General 1994 Neurologic cranial nerves Overall: crainial nerves 2 - 12 grossly intact 02/01/2016 None Full Exam - General 1994 Psychiatric orientation/consciousness Overall: oriented to person, place and time 02/01/2016 None Full Exam - General 1994 Respiratory auscultation Overall: breath sounds clear bilaterally 02/01/2016 None Full Exam - General 1994 Constitutional general appearance Overall: well developed 01/22/2016 None Full Exam - General 1994 Constitutional general appearance Overall: in no acute distress 01/22/2016 None Full Exam - General 1994 Constitutional general appearance Overall: well nourished 01/22/2016 None Full Exam - General 1994 Eyes conjunctiva /eyelids Overall: conjunctiva clear 01/22/2016 None Full Exam - General 1994 Eyes conjunctiva /eyelids Overall: cornea clear 01/22/2016 None Full Exam - General 1994 Eyes conjunctiva /eyelids Overall: eyelids normal 01/22/2016 None Full Exam - General 1994 Eyes pupils and irises Overall: pupils equal, round, reactive to light and accomodation 01/22/2016 None Full Exam - General 1994 Ears/Nose/Throat otoscopic exam Overall: external auditory canals clear 01/22/2016 None Full Exam - General 1994 Ears/Nose/Throat otoscopic exam Overall: tympanic membranes clear 01/22/2016 None Full Exam - General 1994 Ears/Nose/Throat oral cavity/pharynx/larynx Overall: oral mucosa clear 01/22/2016 None Full Exam - General 1994 Ears/Nose/Throat oral cavity/pharynx/larynx Overall: oropharyngeal mucosa clear 01/22/2016 None Full Exam - General 1994 Ears/Nose/Throat oral cavity/pharynx/larynx Overall: no masses 01/22/2016 None Full Exam - General 1994 Respiratory respiratory effort/rhythm Overall: no retractions 01/22/2016 None Full Exam - General 1994 Respiratory respiratory effort/rhythm Overall: normal rate 01/22/2016 None Full Exam - General 1994 Cardiovascular auscultation of heart Overall: regular rate 01/22/2016 None Full Exam - General 1994 Cardiovascular auscultation of heart Overall: normal heart sounds 01/22/2016 None Full Exam - General 1994 Cardiovascular auscultation of heart Overall: no murmurs 01/22/2016 None Full Exam - General 1994 Abdomen abdominal exam Overall: no tenderness 01/22/2016 None Full Exam - General 1994 Abdomen abdominal exam Overall: normal bowel sounds 01/22/2016 None Full Exam - General 1994 Lymphatic neck nodes Overall: anterior cervical chain benign 01/22/2016 None Full Exam - General 1994 Lymphatic neck nodes Overall: posterior cervical chain benign 01/22/2016 None Full Exam - General 1994 Musculoskeletal digits and nails Overall: no clubbing 01/22/2016 None Full Exam - General 1994 Musculoskeletal digits and nails Overall: digits benign 01/22/2016 None Full Exam - General 1994 Neurologic cranial nerves Overall: crainial nerves 2 - 12 grossly intact 01/22/2016 None Full Exam - General 1994 Psychiatric orientation/consciousness Overall: oriented to person, place and time 01/22/2016 None Full Exam - General 1994 Respiratory auscultation Diffuse: expiratory wheezes 01/22/2016 with deep cough Full Exam - General 1994 Constitutional general appearance Overall: well developed 01/07/2016 None Full Exam - General 1994 Constitutional general appearance Overall: in no acute distress 01/07/2016 None Full Exam - General 1994 Constitutional general appearance Overall: well nourished 01/07/2016 None Full Exam - General 1994 Eyes conjunctiva /eyelids Overall: conjunctiva clear 01/07/2016 None Full Exam - General 1994 Eyes conjunctiva /eyelids Overall: cornea clear 01/07/2016 None Full Exam - General 1994 Eyes conjunctiva /eyelids Overall: eyelids normal 01/07/2016 None Full Exam - General 1994 Eyes pupils and irises Overall: pupils equal, round, reactive to light and accomodation 01/07/2016 None Full Exam - General 1994 Ears/Nose/Throat oral cavity/pharynx/larynx Overall: oral mucosa clear 01/07/2016 None Full Exam - General 1994 Ears/Nose/Throat oral cavity/pharynx/larynx Overall: oropharyngeal mucosa clear 01/07/2016 None Full Exam - General 1994 Ears/Nose/Throat oral cavity/pharynx/larynx Overall: no masses 01/07/2016 None Full Exam - General 1994 Respiratory auscultation Overall: breath sounds clear bilaterally 01/07/2016 None Full Exam - General 1994 Respiratory respiratory effort/rhythm Overall: no retractions 01/07/2016 None Full Exam - General 1994 Respiratory respiratory effort/rhythm Overall: normal rate 01/07/2016 None Full Exam - General 1994 Cardiovascular extremities Overall: no clubbing 01/07/2016 None Full Exam - General 1994 Cardiovascular auscultation of heart Overall: regular rate 01/07/2016 None Full Exam - General 1994 Cardiovascular auscultation of heart Overall: normal heart sounds 01/07/2016 None Full Exam - General 1994 Cardiovascular auscultation of heart Overall: no murmurs 01/07/2016 None Full Exam - General 1994 Musculoskeletal head and neck Overall: head atraumatic 01/07/2016 None Full Exam - General 1994 Musculoskeletal head and neck Overall: cervical spine benign 01/07/2016 None Full Exam - General 1994 Integument inspection of skin Location: neck 01/07/2016 scar that puckers with swallowing Full Exam - General 1994 Neurologic cranial nerves Overall: crainial nerves 2 - 12 grossly intact 01/07/2016 None Full Exam - General 1994 Psychiatric orientation/consciousness Overall: oriented to person, place and time 01/07/2016 None Full Exam - General 1994 Constitutional general appearance Overall: well developed 12/03/2015 None Full Exam - General 1994 Constitutional general appearance Overall: in no acute distress 12/03/2015 None Full Exam - General 1994 Constitutional general appearance Overall: well nourished 12/03/2015 None Full Exam - General 1994 Eyes conjunctiva /eyelids Overall: conjunctiva clear 12/03/2015 None Full Exam - General 1994 Eyes conjunctiva /eyelids Overall: cornea clear 12/03/2015 None Full Exam - General 1994 Eyes conjunctiva /eyelids Overall: eyelids normal 12/03/2015 None Full Exam - General 1994 Eyes pupils and irises Overall: pupils equal, round, reactive to light and accomodation 12/03/2015 None Full Exam - General 1994 Ears/Nose/Throat oral cavity/pharynx/larynx Overall: oral mucosa clear 12/03/2015 None Full Exam - General 1994 Ears/Nose/Throat oral cavity/pharynx/larynx Overall: oropharyngeal mucosa clear 12/03/2015 None Full Exam - General 1994 Ears/Nose/Throat oral cavity/pharynx/larynx Overall: no masses 12/03/2015 None Full Exam - General 1994 Respiratory auscultation Overall: breath sounds clear bilaterally 12/03/2015 None Full Exam - General 1994 Respiratory respiratory effort/rhythm Overall: no retractions 12/03/2015 None Full Exam - General 1994 Respiratory respiratory effort/rhythm Overall: normal rate 12/03/2015 None Full Exam - General 1994 Cardiovascular extremities Overall: no clubbing 12/03/2015 None Full Exam - General 1994 Cardiovascular auscultation of heart Overall: regular rate 12/03/2015 None Full Exam - General 1994 Cardiovascular auscultation of heart Overall: normal heart sounds 12/03/2015 None Full Exam - General 1994 Cardiovascular auscultation of heart Overall: no murmurs 12/03/2015 None Full Exam - General 1994 Musculoskeletal head and neck Overall: head atraumatic 12/03/2015 None Full Exam - General 1994 Musculoskeletal head and neck Overall: cervical spine benign 12/03/2015 None Full Exam - General 1994 Integument inspection of skin Location: neck 12/03/2015 scar that puckers with swallowing Full Exam - General 1994 Neurologic cranial nerves Overall: crainial nerves 2 - 12 grossly intact 12/03/2015 None Full Exam - General 1994 Psychiatric orientation/consciousness Overall: oriented to person, place and time 12/03/2015 None Full Exam - General 1994 Constitutional general appearance Overall: well developed 09/17/2015 None Full Exam - General 1994 Constitutional general appearance Overall: in no acute distress 09/17/2015 None Full Exam - General 1994 Constitutional general appearance Overall: well nourished 09/17/2015 None Full Exam - General 1994 Eyes conjunctiva /eyelids Overall: conjunctiva clear 09/17/2015 None Full Exam - General 1994 Eyes conjunctiva /eyelids Overall: cornea clear 09/17/2015 None Full Exam - General 1994 Eyes conjunctiva /eyelids Overall: eyelids normal 09/17/2015 None Full Exam - General 1994 Eyes pupils and irises Overall: pupils equal, round, reactive to light and accomodation 09/17/2015 None Full Exam - General 1994 Respiratory auscultation Overall: breath sounds clear bilaterally 09/17/2015 None Full Exam - General 1994 Respiratory respiratory effort/rhythm Overall: no retractions 09/17/2015 None Full Exam - General 1994 Respiratory respiratory effort/rhythm Overall: normal rate 09/17/2015 None Full Exam - General 1994 Cardiovascular extremities Overall: no clubbing 09/17/2015 None Full Exam - General 1994 Cardiovascular auscultation of heart Overall: regular rate 09/17/2015 None Full Exam - General 1994 Cardiovascular auscultation of heart Overall: normal heart sounds 09/17/2015 None Full Exam - General 1994 Cardiovascular auscultation of heart Overall: no murmurs 09/17/2015 None Full Exam - General 1994 Musculoskeletal head and neck Overall: head atraumatic 09/17/2015 None Full Exam - General 1994 Musculoskeletal head and neck Overall: cervical spine benign 09/17/2015 None Full Exam - General 1994 Integument inspection of skin Location: neck 09/17/2015 scar that puckers with swallowing Full Exam - General 1994 Neurologic cranial nerves Overall: crainial nerves 2 - 12 grossly intact 09/17/2015 None Full Exam - General 1994 Psychiatric orientation/consciousness Overall: oriented to person, place and time 09/17/2015 None Full Exam - General 1994 Ears/Nose/Throat oral cavity/pharynx/larynx Overall: oropharyngeal mucosa clear 09/17/2015 None Full Exam - General 1994 Ears/Nose/Throat oral cavity/pharynx/larynx Overall: no masses 09/17/2015 None Full Exam - General 1994 Ears/Nose/Throat oral cavity/pharynx/larynx Overall: oral mucosa clear 09/17/2015 None Full Exam - General 1994 Constitutional general appearance Overall: well developed 05/29/2015 None Full Exam - General 1994 Constitutional general appearance Overall: in no acute distress 05/29/2015 None Full Exam - General 1994 Constitutional general appearance Overall: well nourished 05/29/2015 None Full Exam - General 1994 Eyes conjunctiva /eyelids Overall: conjunctiva clear 05/29/2015 None Full Exam - General 1994 Eyes conjunctiva /eyelids Overall: cornea clear 05/29/2015 None Full Exam - General 1994 Eyes conjunctiva /eyelids Overall: eyelids normal 05/29/2015 None Full Exam - General 1994 Eyes pupils and irises Overall: pupils equal, round, reactive to light and accomodation 05/29/2015 None Full Exam - General 1994 Respiratory auscultation Overall: breath sounds clear bilaterally 05/29/2015 None Full Exam - General 1994 Respiratory respiratory effort/rhythm Overall: no retractions 05/29/2015 None Full Exam - General 1994 Respiratory respiratory effort/rhythm Overall: normal rate 05/29/2015 None Full Exam - General 1994 Cardiovascular extremities Overall: no clubbing 05/29/2015 None Full Exam - General 1994 Cardiovascular auscultation of heart Overall: regular rate 05/29/2015 None Full Exam - General 1994 Cardiovascular auscultation of heart Overall: normal heart sounds 05/29/2015 None Full Exam - General 1994 Cardiovascular auscultation of heart Overall: no murmurs 05/29/2015 None Full Exam - General 1994 Musculoskeletal head and neck Overall: head atraumatic 05/29/2015 None Full Exam - General 1994 Musculoskeletal head and neck Overall: cervical spine benign 05/29/2015 None Full Exam - General 1994 Neurologic cranial nerves Overall: crainial nerves 2 - 12 grossly intact 05/29/2015 None Full Exam - General 1994 Psychiatric orientation/consciousness Overall: oriented to person, place and time 05/29/2015 None Full Exam - General 1994 Integument inspection of skin Location: neck 05/29/2015 scar that puckers with swallowing Full Exam - General 1994 Constitutional general appearance Overall: well developed 12/12/2014 None Full Exam - General 1994 Constitutional general appearance Overall: in no acute distress 12/12/2014 None Full Exam - General 1994 Constitutional general appearance Overall: well nourished 12/12/2014 None Full Exam - General 1994 Eyes conjunctiva /eyelids Overall: conjunctiva clear 12/12/2014 None Full Exam - General 1994 Eyes conjunctiva /eyelids Overall: cornea clear 12/12/2014 None Full Exam - General 1994 Eyes conjunctiva /eyelids Overall: eyelids normal 12/12/2014 None Full Exam - General 1994 Eyes pupils and irises Overall: pupils equal, round, reactive to light and accomodation 12/12/2014 None Full Exam - General 1994 Ears/Nose/Throat otoscopic exam Overall: external auditory canals clear 12/12/2014 None Full Exam - General 1994 Ears/Nose/Throat otoscopic exam Overall: tympanic membranes clear 12/12/2014 None Full Exam - General 1994 Ears/Nose/Throat oral cavity/pharynx/larynx Overall: oral mucosa clear 12/12/2014 None Full Exam - General 1994 Ears/Nose/Throat oral cavity/pharynx/larynx Overall: oropharyngeal mucosa clear 12/12/2014 None Full Exam - General 1994 Ears/Nose/Throat oral cavity/pharynx/larynx Overall: no masses 12/12/2014 None Full Exam - General 1994 Respiratory auscultation Overall: breath sounds clear bilaterally 12/12/2014 None Full Exam - General 1994 Respiratory respiratory effort/rhythm Overall: no retractions 12/12/2014 None Full Exam - General 1994 Respiratory respiratory effort/rhythm Overall: normal rate 12/12/2014 None Full Exam - General 1994 Cardiovascular extremities Overall: no clubbing 12/12/2014 None Full Exam - General 1994 Cardiovascular auscultation of heart Overall: regular rate 12/12/2014 None Full Exam - General 1994 Cardiovascular auscultation of heart Overall: normal heart sounds 12/12/2014 None Full Exam - General 1994 Cardiovascular auscultation of heart Overall: no murmurs 12/12/2014 None Full Exam - General 1994 Abdomen abdominal exam Overall: no tenderness 12/12/2014 None Full Exam - General 1994 Abdomen abdominal exam Contour: rounded 12/12/2014 None Full Exam - General 1994 Abdomen abdominal exam Bowel sounds: a normal exam 12/12/2014 None Full Exam - General 1994 Abdomen abdominal exam Skin: presence of a scar 12/12/2014 None Full Exam - General 1994 Musculoskeletal lower extremity Inspection - foot: a normal exam 12/12/2014 None Full Exam - General 1994 Musculoskeletal lower extremity Palpation - foot: a normal exam 12/12/2014 None Full Exam - General 1994 Musculoskeletal head and neck Overall: head atraumatic 12/12/2014 None Full Exam - General 1994 Musculoskeletal head and neck Overall: cervical spine benign 12/12/2014 None Full Exam - General 1994 Neurologic cranial nerves Overall: crainial nerves 2 - 12 grossly intact 12/12/2014 None Full Exam - General 1994 Psychiatric orientation/consciousness Overall: oriented to person, place and time 12/12/2014 None Full Exam - General 1994 Constitutional general appearance Overall: well developed 11/22/2014 None Full Exam - General 1994 Constitutional general appearance Overall: in no acute distress 11/22/2014 None Full Exam - General 1994 Constitutional general appearance Overall: well nourished 11/22/2014 None Full Exam - General 1994 Eyes conjunctiva /eyelids Overall: conjunctiva clear 11/22/2014 None Full Exam - General 1994 Eyes conjunctiva /eyelids Overall: cornea clear 11/22/2014 None Full Exam - General 1994 Eyes conjunctiva /eyelids Overall: eyelids normal 11/22/2014 None Full Exam - General 1994 Eyes pupils and irises Overall: pupils equal, round, reactive to light and accomodation 11/22/2014 None Full Exam - General 1994 Ears/Nose/Throat otoscopic exam Overall: external auditory canals clear 11/22/2014 None Full Exam - General 1994 Ears/Nose/Throat otoscopic exam Overall: tympanic membranes clear 11/22/2014 None Full Exam - General 1994 Ears/Nose/Throat oral cavity/pharynx/larynx Overall: oral mucosa clear 11/22/2014 None Full Exam - General 1994 Ears/Nose/Throat oral cavity/pharynx/larynx Overall: oropharyngeal mucosa clear 11/22/2014 None Full Exam - General 1994 Ears/Nose/Throat oral cavity/pharynx/larynx Overall: no masses 11/22/2014 None Full Exam - General 1994 Respiratory auscultation Overall: breath sounds clear bilaterally 11/22/2014 None Full Exam - General 1994 Respiratory respiratory effort/rhythm Overall: no retractions 11/22/2014 None Full Exam - General 1994 Respiratory respiratory effort/rhythm Overall: normal rate 11/22/2014 None Full Exam - General 1994 Cardiovascular extremities Overall: no clubbing 11/22/2014 None Full Exam - General 1994 Cardiovascular auscultation of heart Overall: regular rate 11/22/2014 None Full Exam - General 1994 Cardiovascular auscultation of heart Overall: normal heart sounds 11/22/2014 None Full Exam - General 1994 Cardiovascular auscultation of heart Overall: no murmurs 11/22/2014 None Full Exam - General 1994 Abdomen abdominal exam Bowel sounds: a normal exam 11/22/2014 None Full Exam - General 1994 Abdomen abdominal exam Skin: presence of a scar 11/22/2014 None Full Exam - General 1994 Abdomen abdominal exam Upper quadrant: non-tender to palpation 11/22/2014 None Full Exam - General 1994 Abdomen abdominal exam Epigastric: non-tender to palpation 11/22/2014 None Full Exam - General 1994 Musculoskeletal head and neck Overall: head atraumatic 11/22/2014 None Full Exam - General 1994 Musculoskeletal head and neck Overall: cervical spine benign 11/22/2014 None Full Exam - General 1994 Neurologic cranial nerves Overall: crainial nerves 2 - 12 grossly intact 11/22/2014 None Full Exam - General 1994 Psychiatric orientation/consciousness Overall: oriented to person, place and time 11/22/2014 None Full Exam - General 1994 Integument inspection of skin Location: diffuse 11/22/2014 None Full Exam - General 1994 Integument inspection of skin Rash/Lesions: patch 11/22/2014 maculopapular erythematous rash to trunk, arms, legs, neck Full Exam - General 1994 Integument inspection of skin Rash/Lesions: wheal 11/22/2014 None Full Exam - General 1994 Integument inspection of skin Pigmentation: erythematous 11/22/2014 None Full Exam - General 1994 Constitutional general appearance Overall: well developed 11/14/2014 None Full Exam - General 1994 Constitutional general appearance Overall: in no acute distress 11/14/2014 None Full Exam - General 1994 Constitutional general appearance Overall: well nourished 11/14/2014 None Full Exam - General 1994 Eyes conjunctiva /eyelids Overall: conjunctiva clear 11/14/2014 None Full Exam - General 1994 Eyes conjunctiva /eyelids Overall: cornea clear 11/14/2014 None Full Exam - General 1994 Eyes conjunctiva /eyelids Overall: eyelids normal 11/14/2014 None Full Exam - General 1994 Eyes pupils and irises Overall: pupils equal, round, reactive to light and accomodation 11/14/2014 None Full Exam - General 1994 Ears/Nose/Throat otoscopic exam Overall: external auditory canals clear 11/14/2014 None Full Exam - General 1994 Ears/Nose/Throat otoscopic exam Overall: tympanic membranes clear 11/14/2014 None Full Exam - General 1994 Ears/Nose/Throat oral cavity/pharynx/larynx Overall: oral mucosa clear 11/14/2014 None Full Exam - General 1994 Ears/Nose/Throat oral cavity/pharynx/larynx Overall: oropharyngeal mucosa clear 11/14/2014 None Full Exam - General 1994 Ears/Nose/Throat oral cavity/pharynx/larynx Overall: no masses 11/14/2014 None Full Exam - General 1994 Respiratory auscultation Overall: breath sounds clear bilaterally 11/14/2014 None Full Exam - General 1994 Respiratory respiratory effort/rhythm Overall: no retractions 11/14/2014 None Full Exam - General 1994 Respiratory respiratory effort/rhythm Overall: normal rate 11/14/2014 None Full Exam - General 1994 Cardiovascular extremities Overall: no clubbing 11/14/2014 None Full Exam - General 1994 Cardiovascular auscultation of heart Overall: regular rate 11/14/2014 None Full Exam - General 1994 Cardiovascular auscultation of heart Overall: normal heart sounds 11/14/2014 None Full Exam - General 1994 Cardiovascular auscultation of heart Overall: no murmurs 11/14/2014 None Full Exam - General 1994 Abdomen abdominal exam Bowel sounds: a normal exam 11/14/2014 None Full Exam - General 1994 Abdomen abdominal exam Skin: presence of a scar 11/14/2014 None Full Exam - General 1994 Musculoskeletal lower extremity Inspection - foot: a normal exam 11/14/2014 None Full Exam - General 1994 Musculoskeletal lower extremity Palpation - foot: a normal exam 11/14/2014 None Full Exam - General 1994 Musculoskeletal head and neck Overall: head atraumatic 11/14/2014 None Full Exam - General 1994 Musculoskeletal head and neck Overall: cervical spine benign 11/14/2014 None Full Exam - General 1994 Neurologic cranial nerves Overall: crainial nerves 2 - 12 grossly intact 11/14/2014 None Full Exam - General 1994 Psychiatric orientation/consciousness Overall: oriented to person, place and time 11/14/2014 None Full Exam - General 1994 Abdomen abdominal exam Percussion: dull 11/14/2014 None Full Exam - General 1994 Abdomen abdominal exam Upper quadrant: non-tender to palpation 11/14/2014 None Full Exam - General 1994 Abdomen abdominal exam Lower quadrant: tender to palpation 11/14/2014 left more tender than right Full Exam - General 1994 Abdomen abdominal exam Epigastric: non-tender to palpation 11/14/2014 None Full Exam - General 1994 Abdomen abdominal exam Suprapubic: tender to palpation 11/14/2014 None Full Exam - General 1994 Abdomen abdominal exam Periumbilical: tender to palpation 11/14/2014 None Full Exam - General 1994 Integument inspection of skin Overall: few scattered moles, no gross abnormalities 11/14/2014 None Full Exam - General 1994 Integument inspection of skin Overall: no rash, lesions 11/14/2014 None Full Exam - General 1994 Constitutional general appearance Overall: well developed 09/04/2014 None Full Exam - General 1994 Constitutional general appearance Overall: in no acute distress 09/04/2014 None Full Exam - General 1994 Constitutional general appearance Overall: well nourished 09/04/2014 None Full Exam - General 1994 Eyes conjunctiva /eyelids Overall: conjunctiva clear 09/04/2014 None Full Exam - General 1994 Eyes conjunctiva /eyelids Overall: cornea clear 09/04/2014 None Full Exam - General 1994 Eyes conjunctiva /eyelids Overall: eyelids normal 09/04/2014 None Full Exam - General 1994 Eyes pupils and irises Overall: pupils equal, round, reactive to light and accomodation 09/04/2014 None Full Exam - General 1994 Ears/Nose/Throat otoscopic exam Overall: external auditory canals clear 09/04/2014 None Full Exam - General 1994 Ears/Nose/Throat otoscopic exam Overall: tympanic membranes clear 09/04/2014 None Full Exam - General 1994 Ears/Nose/Throat oral cavity/pharynx/larynx Overall: oral mucosa clear 09/04/2014 None Full Exam - General 1994 Ears/Nose/Throat oral cavity/pharynx/larynx Overall: oropharyngeal mucosa clear 09/04/2014 None Full Exam - General 1994 Ears/Nose/Throat oral cavity/pharynx/larynx Overall: no masses 09/04/2014 None Full Exam - General 1994 Respiratory auscultation Overall: breath sounds clear bilaterally 09/04/2014 None Full Exam - General 1994 Respiratory respiratory effort/rhythm Overall: no retractions 09/04/2014 None Full Exam - General 1994 Respiratory respiratory effort/rhythm Overall: normal rate 09/04/2014 None Full Exam - General 1994 Cardiovascular extremities Overall: no clubbing 09/04/2014 None Full Exam - General 1994 Cardiovascular auscultation of heart Overall: regular rate 09/04/2014 None Full Exam - General 1994 Cardiovascular auscultation of heart Overall: normal heart sounds 09/04/2014 None Full Exam - General 1994 Cardiovascular auscultation of heart Overall: no murmurs 09/04/2014 None Full Exam - General 1994 Abdomen abdominal exam Overall: no tenderness 09/04/2014 None Full Exam - General 1994 Abdomen abdominal exam Contour: rounded 09/04/2014 None Full Exam - General 1994 Abdomen abdominal exam Bowel sounds: a normal exam 09/04/2014 None Full Exam - General 1994 Abdomen abdominal exam Skin: presence of a scar 09/04/2014 None Full Exam - General 1994 Musculoskeletal lower extremity Inspection - foot: a normal exam 09/04/2014 None Full Exam - General 1994 Musculoskeletal lower extremity Palpation - foot: a normal exam 09/04/2014 None Full Exam - General 1994 Musculoskeletal head and neck Overall: head atraumatic 09/04/2014 None Full Exam - General 1994 Musculoskeletal head and neck Overall: cervical spine benign 09/04/2014 None Full Exam - General 1994 Neurologic cranial nerves Overall: crainial nerves 2 - 12 grossly intact 09/04/2014 None Full Exam - General 1994 Psychiatric orientation/consciousness Overall: oriented to person, place and time 09/04/2014 None Full Exam - General 1994 Constitutional general appearance Overall: well developed 08/04/2014 None Full Exam - General 1994 Constitutional general appearance Overall: in no acute distress 08/04/2014 None Full Exam - General 1994 Constitutional general appearance Overall: well nourished 08/04/2014 None Full Exam - General 1994 Eyes conjunctiva /eyelids Overall: conjunctiva clear 08/04/2014 None Full Exam - General 1994 Eyes conjunctiva /eyelids Overall: cornea clear 08/04/2014 None Full Exam - General 1994 Eyes conjunctiva /eyelids Overall: eyelids normal 08/04/2014 None Full Exam - General 1994 Eyes pupils and irises Overall: pupils equal, round, reactive to light and accomodation 08/04/2014 None Full Exam - General 1994 Respiratory auscultation Overall: breath sounds clear bilaterally 08/04/2014 None Full Exam - General 1994 Respiratory respiratory effort/rhythm Overall: no retractions 08/04/2014 None Full Exam - General 1994 Respiratory respiratory effort/rhythm Overall: normal rate 08/04/2014 None Full Exam - General 1994 Cardiovascular extremities Overall: no clubbing 08/04/2014 None Full Exam - General 1994 Cardiovascular auscultation of heart Overall: regular rate 08/04/2014 None Full Exam - General 1994 Cardiovascular auscultation of heart Overall: normal heart sounds 08/04/2014 None Full Exam - General 1994 Cardiovascular auscultation of heart Overall: no murmurs 08/04/2014 None Full Exam - General 1994 Abdomen abdominal exam Overall: no tenderness 08/04/2014 None Full Exam - General 1994 Abdomen abdominal exam Contour: rounded 08/04/2014 None Full Exam - General 1994 Abdomen abdominal exam Bowel sounds: a normal exam 08/04/2014 None Full Exam - General 1994 Musculoskeletal lower extremity Inspection - foot: a normal exam 08/04/2014 None Full Exam - General 1994 Musculoskeletal lower extremity Palpation - foot: a normal exam 08/04/2014 None Full Exam - General 1994 Musculoskeletal head and neck Overall: head atraumatic 08/04/2014 None Full Exam - General 1994 Musculoskeletal head and neck Overall: cervical spine benign 08/04/2014 None Full Exam - General 1994 Neurologic cranial nerves Overall: crainial nerves 2 - 12 grossly intact 08/04/2014 None Full Exam - General 1994 Psychiatric orientation/consciousness Overall: oriented to person, place and time 08/04/2014 None Full Exam - General 1994 Ears/Nose/Throat oral cavity/pharynx/larynx Overall: oropharyngeal mucosa clear 08/04/2014 None Full Exam - General 1994 Ears/Nose/Throat oral cavity/pharynx/larynx Overall: no masses 08/04/2014 None Full Exam - General 1994 Ears/Nose/Throat oral cavity/pharynx/larynx Overall: oral mucosa clear 08/04/2014 None Full Exam - General 1994 Ears/Nose/Throat otoscopic exam Overall: tympanic membranes clear 08/04/2014 None Full Exam - General 1994 Ears/Nose/Throat otoscopic exam Overall: external auditory canals clear 08/04/2014 None Full Exam - General 1994 Abdomen abdominal exam Skin: presence of a scar 08/04/2014 None Full Exam - General 1994 Constitutional general appearance Overall: well developed 04/11/2014 None Full Exam - General 1994 Constitutional general appearance Overall: in no acute distress 04/11/2014 None Full Exam - General 1994 Constitutional general appearance Overall: well nourished 04/11/2014 None Full Exam - General 1994 Eyes conjunctiva /eyelids Overall: conjunctiva clear 04/11/2014 None Full Exam - General 1994 Eyes conjunctiva /eyelids Overall: cornea clear 04/11/2014 None Full Exam - General 1994 Eyes conjunctiva /eyelids Overall: eyelids normal 04/11/2014 None Full Exam - General 1994 Eyes pupils and irises Overall: pupils equal, round, reactive to light and accomodation 04/11/2014 None Full Exam - General 1994 Respiratory auscultation Overall: breath sounds clear bilaterally 04/11/2014 None Full Exam - General 1994 Respiratory respiratory effort/rhythm Overall: no retractions 04/11/2014 None Full Exam - General 1994 Respiratory respiratory effort/rhythm Overall: normal rate 04/11/2014 None Full Exam - General 1994 Cardiovascular extremities Overall: no clubbing 04/11/2014 None Full Exam - General 1994 Cardiovascular auscultation of heart Overall: regular rate 04/11/2014 None Full Exam - General 1994 Cardiovascular auscultation of heart Overall: normal heart sounds 04/11/2014 None Full Exam - General 1994 Cardiovascular auscultation of heart Overall: no murmurs 04/11/2014 None Full Exam - General 1994 Abdomen abdominal exam Overall: no tenderness 04/11/2014 None Full Exam - General 1994 Abdomen abdominal exam Contour: rounded 04/11/2014 None Full Exam - General 1994 Abdomen abdominal exam Bowel sounds: a normal exam 04/11/2014 None Full Exam - General 1994 Musculoskeletal lower extremity Inspection - foot: a normal exam 04/11/2014 None Full Exam - General 1994 Musculoskeletal lower extremity Palpation - foot: a normal exam 04/11/2014 None Full Exam - General 1994 Musculoskeletal head and neck Overall: head atraumatic 04/11/2014 None Full Exam - General 1994 Musculoskeletal head and neck Overall: cervical spine benign 04/11/2014 None Full Exam - General 1994 Neurologic cranial nerves Overall: crainial nerves 2 - 12 grossly intact 04/11/2014 None Full Exam - General 1994 Psychiatric orientation/consciousness Overall: oriented to person, place and time 04/11/2014 None Full Exam - General 1994 Constitutional general appearance Overall: well developed 01/05/2014 None Full Exam - General 1994 Constitutional general appearance Overall: in no acute distress 01/05/2014 None Full Exam - General 1994 Constitutional general appearance Overall: well nourished 01/05/2014 None Full Exam - General 1994 Eyes conjunctiva /eyelids Overall: conjunctiva clear 01/05/2014 None Full Exam - General 1994 Eyes conjunctiva /eyelids Overall: cornea clear 01/05/2014 None Full Exam - General 1994 Eyes conjunctiva /eyelids Overall: eyelids normal 01/05/2014 None Full Exam - General 1994 Eyes pupils and irises Overall: pupils equal, round, reactive to light and accomodation 01/05/2014 None Full Exam - General 1994 Respiratory auscultation Overall: breath sounds clear bilaterally 01/05/2014 None Full Exam - General 1994 Respiratory respiratory effort/rhythm Overall: no retractions 01/05/2014 None Full Exam - General 1994 Respiratory respiratory effort/rhythm Overall: normal rate 01/05/2014 None Full Exam - General 1994 Cardiovascular extremities Overall: no clubbing 01/05/2014 None Full Exam - General 1994 Cardiovascular auscultation of heart Overall: regular rate 01/05/2014 None Full Exam - General 1994 Cardiovascular auscultation of heart Overall: normal heart sounds 01/05/2014 None Full Exam - General 1994 Cardiovascular auscultation of heart Overall: no murmurs 01/05/2014 None Full Exam - General 1994 Musculoskeletal lower extremity Inspection - foot: a normal exam 01/05/2014 None Full Exam - General 1994 Musculoskeletal lower extremity Palpation - foot: a normal exam 01/05/2014 None Full Exam - General 1994 Musculoskeletal head and neck Overall: head atraumatic 01/05/2014 None Full Exam - General 1994 Musculoskeletal head and neck Overall: cervical spine benign 01/05/2014 None Full Exam - General 1994 Neurologic cranial nerves Overall: crainial nerves 2 - 12 grossly intact 01/05/2014 None Full Exam - General 1994 Psychiatric orientation/consciousness Overall: oriented to person, place and time 01/05/2014 None Full Exam - General 1994 Abdomen abdominal exam Overall: no tenderness 01/05/2014 None Full Exam - General 1994 Abdomen abdominal exam Contour: rounded 01/05/2014 None Full Exam - General 1994 Abdomen abdominal exam Bowel sounds: a normal exam 01/05/2014 None Full Exam - General 1994 Constitutional general appearance Overall: well developed 10/10/2013 None Full Exam - General 1994 Constitutional general appearance Overall: in no acute distress 10/10/2013 None Full Exam - General 1994 Constitutional general appearance Overall: well nourished 10/10/2013 None Full Exam - General 1995 Eyes conjunctiva /eyelids Overall: conjunctiva clear 10/10/2013 None Full Exam - General 1994 Eyes conjunctiva /eyelids Overall: cornea clear 10/10/2013 None Full Exam - General 1994 Eyes conjunctiva /eyelids Overall: eyelids normal 10/10/2013 None Full Exam - General 1994 Eyes pupils and irises Overall: pupils equal, round, reactive to light and accomodation 10/10/2013 None Full Exam - General 1994 Respiratory auscultation Overall: breath sounds clear bilaterally 10/10/2013 None Full Exam - General 1994 Respiratory respiratory effort/rhythm Overall: no retractions 10/10/2013 None Full Exam - General 1994 Respiratory respiratory effort/rhythm Overall: normal rate 10/10/2013 None Full Exam - General 1994 Cardiovascular extremities Overall: no clubbing 10/10/2013 None Full Exam - General 1994 Cardiovascular auscultation of heart Overall: regular rate 10/10/2013 None Full Exam - General 1994 Cardiovascular auscultation of heart Overall: normal heart sounds 10/10/2013 None Full Exam - General 1994 Cardiovascular auscultation of heart Overall: no murmurs 10/10/2013 None Full Exam - General 1994 Musculoskeletal lower extremity Inspection - foot: a normal exam 10/10/2013 None Full Exam - General 1994 Musculoskeletal lower extremity Palpation - foot: a normal exam 10/10/2013 None Full Exam - General 1994 Musculoskeletal head and neck Overall: head atraumatic 10/10/2013 None Full Exam - General 1994 Musculoskeletal head and neck Overall: cervical spine benign 10/10/2013 None Full Exam - General 1994 Neurologic cranial nerves Overall: crainial nerves 2 - 12 grossly intact 10/10/2013 None Full Exam - General 1994 Psychiatric orientation/consciousness Overall: oriented to person, place and time 10/10/2013 None Full Exam - General 1994 Constitutional general appearance Overall: well developed 08/02/2013 None Full Exam - General 1994 Constitutional general appearance Overall: in no acute distress 08/02/2013 None Full Exam - General 1994 Constitutional general appearance Overall: well nourished 08/02/2013 None Full Exam - General 1994 Eyes conjunctiva /eyelids Overall: conjunctiva clear 08/02/2013 None Full Exam - General 1994 Eyes conjunctiva /eyelids Overall: cornea clear 08/02/2013 None Full Exam - General 1994 Eyes conjunctiva /eyelids Overall: eyelids normal 08/02/2013 None Full Exam - General 1994 Eyes pupils and irises Overall: pupils equal, round, reactive to light and accomodation 08/02/2013 None Full Exam - General 1994 Respiratory auscultation Overall: breath sounds clear bilaterally 08/02/2013 None Full Exam - General 1994 Respiratory respiratory effort/rhythm Overall: no retractions 08/02/2013 None Full Exam - General 1994 Respiratory respiratory effort/rhythm Overall: normal rate 08/02/2013 None Full Exam - General 1994 Cardiovascular extremities Overall: no clubbing 08/02/2013 None Full Exam - General 1994 Cardiovascular auscultation of heart Overall: regular rate 08/02/2013 None Full Exam - General 1994 Cardiovascular auscultation of heart Overall: normal heart sounds 08/02/2013 None Full Exam - General 1994 Cardiovascular auscultation of heart Overall: no murmurs 08/02/2013 None Full Exam - General 1994 Musculoskeletal head and neck Overall: head atraumatic 08/02/2013 None Full Exam - General 1994 Musculoskeletal head and neck Overall: cervical spine benign 08/02/2013 None Full Exam - General 1994 Neurologic cranial nerves Overall: crainial nerves 2 - 12 grossly intact 08/02/2013 None Full Exam - General 1994 Psychiatric orientation/consciousness Overall: oriented to person, place and time 08/02/2013 None Full Exam - General 1994 Ears/Nose/Throat oral cavity/pharynx/larynx Overall: oropharyngeal mucosa clear 08/02/2013 None Full Exam - General 1994 Ears/Nose/Throat oral cavity/pharynx/larynx Overall: no masses 08/02/2013 None Full Exam - General 1994 Ears/Nose/Throat oral cavity/pharynx/larynx Overall: oral mucosa clear 08/02/2013 None Full Exam - General 1994 Abdomen abdominal exam Overall: no tenderness 08/02/2013 None Full Exam - General 1994 Abdomen abdominal exam Overall: normal bowel sounds 08/02/2013 None Full Exam - General 1994 Musculoskeletal upper extremity Inspection - shoulder: presence of a scar 08/02/2013 None Full Exam - General 1994 Constitutional general appearance Overall: well developed 06/30/2013 None Full Exam - General 1994 Constitutional general appearance Overall: in no acute distress 06/30/2013 None Full Exam - General 1994 Constitutional general appearance Overall: well nourished 06/30/2013 None Full Exam - General 1994 Eyes conjunctiva /eyelids Overall: conjunctiva clear 06/30/2013 None Full Exam - General 1994 Eyes conjunctiva /eyelids Overall: cornea clear 06/30/2013 None Full Exam - General 1994 Eyes conjunctiva /eyelids Overall: eyelids normal 06/30/2013 None Full Exam - General 1994 Eyes pupils and irises Overall: pupils equal, round, reactive to light and accomodation 06/30/2013 None Full Exam - General 1994 Respiratory auscultation Overall: breath sounds clear bilaterally 06/30/2013 None Full Exam - General 1994 Respiratory respiratory effort/rhythm Overall: no retractions 06/30/2013 None Full Exam - General 1994 Respiratory respiratory effort/rhythm Overall: normal rate 06/30/2013 None Full Exam - General 1994 Cardiovascular extremities Overall: no clubbing 06/30/2013 None Full Exam - General 1994 Cardiovascular auscultation of heart Overall: regular rate 06/30/2013 None Full Exam - General 1994 Cardiovascular auscultation of heart Overall: normal heart sounds 06/30/2013 None Full Exam - General 1994 Cardiovascular auscultation of heart Overall: no murmurs 06/30/2013 None Full Exam - General 1994 Musculoskeletal lower extremity Inspection - foot: a normal exam 06/30/2013 None Full Exam - General 1994 Musculoskeletal lower extremity Palpation - foot: a normal exam 06/30/2013 None Full Exam - General 1994 Musculoskeletal head and neck Overall: head atraumatic 06/30/2013 None Full Exam - General 1994 Musculoskeletal head and neck Overall: cervical spine benign 06/30/2013 None Full Exam - General 1994 Neurologic cranial nerves Overall: crainial nerves 2 - 12 grossly intact 06/30/2013 None Full Exam - General 1994 Psychiatric orientation/consciousness Overall: oriented to person, place and time 06/30/2013 None Full Exam - General 1994 Ears/Nose/Throat otoscopic exam Overall: tympanic membranes clear 06/30/2013 None Full Exam - General 1994 Ears/Nose/Throat otoscopic exam Overall: external auditory canals clear 06/30/2013 None Full Exam - General 1994 Ears/Nose/Throat oral cavity/pharynx/larynx Overall: oropharyngeal mucosa clear 06/30/2013 None Full Exam - General 1994 Ears/Nose/Throat oral cavity/pharynx/larynx Overall: no masses 06/30/2013 None Full Exam - General 1994 Ears/Nose/Throat oral cavity/pharynx/larynx Overall: oral mucosa clear 06/30/2013 None Full Exam - General 1994 Constitutional general appearance Overall: well developed 06/20/2013 None Full Exam - General 1994 Constitutional general appearance Overall: in no acute distress 06/20/2013 None Full Exam - General 1994 Constitutional general appearance Overall: well nourished 06/20/2013 None Full Exam - General 1994 Eyes conjunctiva /eyelids Overall: conjunctiva clear 06/20/2013 None Full Exam - General 1994 Eyes conjunctiva /eyelids Overall: cornea clear 06/20/2013 None Full Exam - General 1994 Eyes conjunctiva /eyelids Overall: eyelids normal 06/20/2013 None Full Exam - General 1994 Eyes pupils and irises Overall: pupils equal, round, reactive to light and accomodation 06/20/2013 None Full Exam - General 1994 Respiratory auscultation Overall: breath sounds clear bilaterally 06/20/2013 None Full Exam - General 1994 Respiratory respiratory effort/rhythm Overall: no retractions 06/20/2013 None Full Exam - General 1994 Respiratory respiratory effort/rhythm Overall: normal rate 06/20/2013 None Full Exam - General 1994 Cardiovascular extremities Overall: no clubbing 06/20/2013 None Full Exam - General 1994 Cardiovascular auscultation of heart Overall: regular rate 06/20/2013 None Full Exam - General 1994 Cardiovascular auscultation of heart Overall: normal heart sounds 06/20/2013 None Full Exam - General 1994 Cardiovascular auscultation of heart Overall: no murmurs 06/20/2013 None Full Exam - General 1994 Musculoskeletal head and neck Overall: head atraumatic 06/20/2013 None Full Exam - General 1994 Musculoskeletal head and neck Overall: cervical spine benign 06/20/2013 None Full Exam - General 1994 Neurologic cranial nerves Overall: crainial nerves 2 - 12 grossly intact 06/20/2013 None Full Exam - General 1994 Psychiatric orientation/consciousness Overall: oriented to person, place and time 06/20/2013 None Full Exam - General 1994 Musculoskeletal lower extremity Palpation - foot: a normal exam 06/20/2013 None Full Exam - General 1994 Musculoskeletal lower extremity Inspection - foot: a normal exam 06/20/2013 None Full Exam - General 1994 Constitutional general appearance Overall: well nourished 06/06/2013 None Full Exam - General 1994 Constitutional general appearance Overall: well developed 06/06/2013 None Full Exam - General 1994 Constitutional general appearance Overall: in no acute distress 06/06/2013 None Full Exam - General 1994 Eyes pupils and irises Overall: pupils equal, round, reactive to light and accomodation 06/06/2013 None Full Exam - General 1994 Ears/Nose/Throat oral cavity/pharynx/larynx Overall: oropharyngeal mucosa clear 06/06/2013 None Full Exam - General 1994 Ears/Nose/Throat oral cavity/pharynx/larynx Overall: no masses 06/06/2013 None Full Exam - General 1994 Ears/Nose/Throat oral cavity/pharynx/larynx Overall: oral mucosa clear 06/06/2013 None Full Exam - General 1994 Respiratory auscultation Overall: breath sounds clear bilaterally 06/06/2013 None Full Exam - General 1994 Cardiovascular auscultation of heart Overall: regular rate 06/06/2013 None Full Exam - General 1994 Cardiovascular auscultation of heart Overall: normal heart sounds 06/06/2013 None Full Exam - General 1994 Cardiovascular auscultation of heart Overall: no murmurs 06/06/2013 None Full Exam - General 1994 Musculoskeletal upper extremity Inspection - shoulder: a normal exam 06/06/2013 None Full Exam - General 1994 Musculoskeletal upper extremity Palpation - shoulder: pain with resisted abduction 06/06/2013 None Full Exam - General 1994 Musculoskeletal upper extremity Palpation - shoulder: pain with resisted biceps flexion 06/06/2013 None Full Exam - General 1994 Musculoskeletal upper extremity Palpation - shoulder: pain with resisted internal rotation 06/06/2013 None Full Exam - General 1994 Musculoskeletal upper extremity ROM - shoulder: pain with abduction 06/06/2013 None Full Exam - General 1994 Musculoskeletal upper extremity ROM - shoulder: decreased internal rotation 06/06/2013 None Full Exam - General 1994 Musculoskeletal upper extremity ROM - shoulder: pain with internal rotation 06/06/2013 None Full Exam - General 1994 Musculoskeletal upper extremity ROM - shoulder: pain with shoulder extension 06/06/2013 None Full Exam - General 1994 Psychiatric mood and affect Mood: happy 06/06/2013 None Full Exam - General 1994 Psychiatric mood and affect Overall: normal mood and affect 06/06/2013 None Full Exam - General 1994 Psychiatric orientation/consciousness Overall: oriented to person, place and time 06/06/2013 None Full Exam - General 1994 Eyes conjunctiva /eyelids Overall: cornea clear 02/21/2013 None Full Exam - General 1994 Eyes conjunctiva /eyelids Overall: eyelids normal 02/21/2013 None Full Exam - General 1994 Eyes pupils and irises Overall: pupils equal, round, reactive to light and accomodation 02/21/2013 None Full Exam - General 1995 Respiratory respiratory effort/rhythm Overall: no retractions 02/21/2013 None Full Exam - General 1995 Respiratory respiratory effort/rhythm Overall: normal rate 02/21/2013 None Full Exam - General 1995 Cardiovascular extremities Overall: no clubbing 02/21/2013 None Full Exam - General 1995 Cardiovascular auscultation of heart Overall: regular rate 02/21/2013 None Full Exam - General 1995 Cardiovascular auscultation of heart Overall: normal heart sounds 02/21/2013 None Full Exam - General 1995 Cardiovascular auscultation of heart Overall: no murmurs 02/21/2013 None Full Exam - General 1995 Musculoskeletal head and neck Overall: head atraumatic 02/21/2013 None Full Exam - General 1994 Musculoskeletal head and neck Overall: cervical spine benign 02/21/2013 None Full Exam - General 1994 Neurologic cranial nerves Overall: crainial nerves 2 - 12 grossly intact 02/21/2013 None Full Exam - General 1994 Psychiatric orientation/consciousness Overall: oriented to person, place and time 02/21/2013 None Full Exam - General 1994 Constitutional general appearance Overall: well developed 02/21/2013 None Full Exam - General 1994 Constitutional general appearance Overall: in no acute distress 02/21/2013 None Full Exam - General 1994 Constitutional general appearance Overall: well nourished 02/21/2013 None Full Exam - General 1994 Eyes conjunctiva /eyelids Overall: conjunctiva clear 02/21/2013 None Full Exam - General 1994 Respiratory auscultation Lower lung field: diminished 02/21/2013 None Full Exam - General 1994 Respiratory auscultation Upper lung field: diminished 02/21/2013 None Full Exam - General 1994 Respiratory auscultation Upper lung field: rhonchi 02/21/2013 None Full Exam - General 1994 Constitutional general appearance Overall: well developed 12/13/2012 None Full Exam - General 1994 Constitutional general appearance Overall: in no acute distress 12/13/2012 None Full Exam - General 1994 Constitutional general appearance Overall: well nourished 12/13/2012 None Full Exam - General 1994 Eyes conjunctiva /eyelids Overall: conjunctiva clear 12/13/2012 None Full Exam - General 1994 Eyes conjunctiva /eyelids Overall: cornea clear 12/13/2012 None Full Exam - General 1994 Eyes conjunctiva /eyelids Overall: eyelids normal 12/13/2012 None Full Exam - General 1995 Eyes pupils and irises Overall: pupils equal, round, reactive to light and accomodation 12/13/2012 None Full Exam - General 1995 Respiratory auscultation Overall: breath sounds clear bilaterally 12/13/2012 None Full Exam - General 1995 Respiratory respiratory effort/rhythm Overall: no retractions 12/13/2012 None Full Exam - General 1994 Respiratory respiratory effort/rhythm Overall: normal rate 12/13/2012 None Full Exam - General 1995 Cardiovascular extremities Overall: no clubbing 12/13/2012 None Full Exam - General 1995 Cardiovascular auscultation of heart Overall: regular rate 12/13/2012 None Full Exam - General 1994 Cardiovascular auscultation of heart Overall: normal heart sounds 12/13/2012 None Full Exam - General 1994 Cardiovascular auscultation of heart Overall: no murmurs 12/13/2012 None Full Exam - General 1994 Neurologic cranial nerves Overall: crainial nerves 2 - 12 grossly intact 12/13/2012 None Full Exam - General 1994 Psychiatric orientation/consciousness Overall: oriented to person, place and time 12/13/2012 None Full Exam - General 1994 Musculoskeletal head and neck Overall: cervical spine benign 12/13/2012 None Full Exam - General 1995 Musculoskeletal head and neck Overall: head atraumatic 12/13/2012 None Full Exam - General 1994 Constitutional general appearance Overall: well developed 09/23/2012 None Full Exam - General 1994 Constitutional general appearance Overall: in no acute distress 09/23/2012 None Full Exam - General 1994 Constitutional general appearance Overall: well nourished 09/23/2012 None Full Exam - General 1994 Eyes conjunctiva /eyelids Overall: conjunctiva clear 09/23/2012 None Full Exam - General 1994 Eyes conjunctiva /eyelids Overall: cornea clear 09/23/2012 None Full Exam - General 1994 Eyes conjunctiva /eyelids Overall: eyelids normal 09/23/2012 None Full Exam - General 1994 Eyes pupils and irises Overall: pupils equal, round, reactive to light and accomodation 09/23/2012 None Full Exam - General 1994 Ears/Nose/Throat otoscopic exam Overall: external auditory canals clear 09/23/2012 None Full Exam - General 1994 Ears/Nose/Throat otoscopic exam Overall: tympanic membranes clear 09/23/2012 None Full Exam - General 1994 Ears/Nose/Throat oral cavity/pharynx/larynx Overall: oral mucosa clear 09/23/2012 None Full Exam - General 1995 Ears/Nose/Throat oral cavity/pharynx/larynx Overall: oropharyngeal mucosa clear 09/23/2012 None Full Exam - General 1995 Ears/Nose/Throat oral cavity/pharynx/larynx Overall: no masses 09/23/2012 None Full Exam - General 1994 Respiratory auscultation Overall: breath sounds clear bilaterally 09/23/2012 None Full Exam - General 1994 Respiratory respiratory effort/rhythm Overall: no retractions 09/23/2012 None Full Exam - General 1994 Respiratory respiratory effort/rhythm Overall: normal rate 09/23/2012 None Full Exam - General 1994 Cardiovascular extremities Overall: no clubbing 09/23/2012 None Full Exam - General 1994 Cardiovascular auscultation of heart Overall: regular rate 09/23/2012 None Full Exam - General 1994 Cardiovascular auscultation of heart Overall: normal heart sounds 09/23/2012 None Full Exam - General 1994 Cardiovascular auscultation of heart Overall: no murmurs 09/23/2012 None Full Exam - General 1994 Abdomen abdominal exam Overall: no tenderness 09/23/2012 None Full Exam - General 1994 Abdomen abdominal exam Overall: normal bowel sounds 09/23/2012 None Full Exam - General 1994 Neurologic cranial nerves Overall: crainial nerves 2 - 12 grossly intact 09/23/2012 None Full Exam - General 1994 Psychiatric orientation/consciousness Overall: oriented to person, place and time 09/23/2012 None Full Exam - General 1994 Psychiatric orientation/consciousness Overall: oriented to person, place and time 06/14/2012 None Full Exam - General 1994 Neurologic cranial nerves Overall: crainial nerves 2 - 12 grossly intact 06/14/2012 None Full Exam - General 1994 Abdomen abdominal exam Overall: no tenderness 06/14/2012 None Full Exam - General 1994 Abdomen abdominal exam Overall: normal bowel sounds 06/14/2012 None Full Exam - General 1994 Cardiovascular extremities Overall: no clubbing 06/14/2012 None Full Exam - General 1994 Cardiovascular auscultation of heart Overall: regular rate 06/14/2012 None Full Exam - General 1994 Cardiovascular auscultation of heart Overall: normal heart sounds 06/14/2012 None Full Exam - General 1994 Cardiovascular auscultation of heart Overall: no murmurs 06/14/2012 None Full Exam - General 1994 Respiratory auscultation Overall: breath sounds clear bilaterally 06/14/2012 None Full Exam - General 1995 Respiratory respiratory effort/rhythm Overall: normal rate 06/14/2012 None Full Exam - General 1995 Respiratory respiratory effort/rhythm Overall: no retractions 06/14/2012 None Full Exam - General 1995 Ears/Nose/Throat otoscopic exam Overall: tympanic membranes clear 06/14/2012 None Full Exam - General 1995 Ears/Nose/Throat otoscopic exam Overall: external auditory canals clear 06/14/2012 None Full Exam - General 1995 Ears/Nose/Throat oral cavity/pharynx/larynx Overall: oropharyngeal mucosa clear 06/14/2012 None Full Exam - General 1995 Ears/Nose/Throat oral cavity/pharynx/larynx Overall: no masses 06/14/2012 None Full Exam - General 1995 Ears/Nose/Throat oral cavity/pharynx/larynx Overall: oral mucosa clear 06/14/2012 None Full Exam - General 1995 Eyes conjunctiva /eyelids Overall: conjunctiva clear 06/14/2012 None Full Exam - General 1994 Eyes conjunctiva /eyelids Overall: eyelids normal 06/14/2012 None Full Exam - General 1994 Eyes conjunctiva /eyelids Overall: cornea clear 06/14/2012 None Full Exam - General 1994 Eyes pupils and irises Overall: pupils equal, round, reactive to light and accomodation 06/14/2012 None Full Exam - General 1994 Constitutional general appearance Overall: well nourished 06/14/2012 None Full Exam - General 1994 Constitutional general appearance Overall: well developed 06/14/2012 None Full Exam - General 1994 Constitutional general appearance Overall: in no acute distress 06/14/2012 None Full Exam - General 1994 Constitutional general appearance Overall: well developed 05/21/2012 None Full Exam - General 1994 Constitutional general appearance Overall: in no acute distress 05/21/2012 None Full Exam - General 1994 Constitutional general appearance Overall: well nourished 05/21/2012 None Full Exam - General 1994 Psychiatric orientation/consciousness Overall: oriented to person, place and time 05/21/2012 None Full Exam - General 1994 Neurologic cranial nerves Overall: crainial nerves 2 - 12 grossly intact 05/21/2012 None Full Exam - General 1994 Lymphatic neck nodes Overall: anterior cervical chain benign 05/21/2012 None Full Exam - General 1994 Lymphatic neck nodes Overall: posterior cervical chain benign 05/21/2012 None Full Exam - General 1994 Musculoskeletal digits and nails Overall: digits benign 05/21/2012 None Full Exam - General 1994 Musculoskeletal digits and nails Overall: no clubbing 05/21/2012 None Full Exam - General 1994 Abdomen abdominal exam Overall: no tenderness 05/21/2012 None Full Exam - General 1994 Abdomen abdominal exam Overall: normal bowel sounds 05/21/2012 None Full Exam - General 1994 Cardiovascular auscultation of heart Overall: regular rate 05/21/2012 None Full Exam - General 1994 Cardiovascular auscultation of heart Overall: normal heart sounds 05/21/2012 None Full Exam - General 1994 Cardiovascular auscultation of heart Overall: no murmurs 05/21/2012 None Full Exam - General 1994 Respiratory auscultation Overall: breath sounds clear bilaterally 05/21/2012 None Full Exam - General 1994 Respiratory respiratory effort/rhythm Overall: normal rate 05/21/2012 None Full Exam - General 1994 Respiratory respiratory effort/rhythm Overall: no retractions 05/21/2012 None Full Exam - General 1994 Ears/Nose/Throat otoscopic exam Overall: tympanic membranes clear 05/21/2012 None Full Exam - General 1994 Ears/Nose/Throat otoscopic exam Overall: external auditory canals clear 05/21/2012 None Full Exam - General 1994 Ears/Nose/Throat oral cavity/pharynx/larynx Overall: oropharyngeal mucosa clear 05/21/2012 None Full Exam - General 1995 Ears/Nose/Throat oral cavity/pharynx/larynx Overall: no masses 05/21/2012 None Full Exam - General 1995 Ears/Nose/Throat oral cavity/pharynx/larynx Overall: oral mucosa clear 05/21/2012 None Full Exam - General 1994 Eyes conjunctiva /eyelids Overall: conjunctiva clear 05/21/2012 None Full Exam - General 1994 Eyes conjunctiva /eyelids Overall: eyelids normal 05/21/2012 None Full Exam - General 1992 Eyes conjunctiva /eyelids Overall: cornea clear 05/21/2012 None Full Exam - General 1994 Eyes pupils and irises Overall: pupils equal, round, reactive to light and accomodation 05/21/2012 None Procedures Procedure Codes Date TRIAMCINOLONE ACET INJ NOS CPT-4: J3301 02/22/2018 IMMUNIZATION ADMIN CPT -4: 05992 01/07/2018 FLU VAC NO PRSV 4 SHAKILA 3 YRS+ CPT-4: 44790 01/07/2018 TRIAMCINOLONE ACET INJ NOS CPT-4: J3301 01/22/2016 TRIAMCINOLONE ACET INJ NOS CPT-4: J3301 11/23/2014 THER/PROPH/DIAG INJ SC/IM CPT-4: 53522 11/23/2014 THER/PROPH/DIAG INJ SC/IM CPT-4: 96725 11/22/2014 TRIAMCINOLONE ACET INJ NOS CPT-4: J3301 11/22/2014 URINALYSIS NONAUTO W/O SCOPE CPT-4: 98901 11/14/2014 ROUTINE VENIPUNCTURE CPT-4: 62989 04/11/2014 CHEM 14 ([facility]) CPT-4: 23034 04/11/2014 IMMUNIZATION ADMIN CPT -4: 40737 01/05/2014 FLU VAC NO PRSV 4 SHAKILA 3 YRS+ Assigned to/Alyssa Thomas CPT-4: 52597Sfosvdt 01/05/2014 FOOT EXAM PERFORMED SNOMED CT: [id number] CPT-4: 2028F 06/20/2013 KETOROLAC TROMETHAMINE INJ CPT-4: J1885 06/06/2013 THER/PROPH/DIAG INJ SC/IM CPT-4: 56219 06/06/2013 Vital Signs Date Vital 02/22/2018 Blood Pressure 1: 130/68 Code : 8480-6 BMI: 31.5 Code : 43055-4 Heart Rate 1 : 91 bpm Height: 5'6" SpO2: 98% Weight: 192 lbs 01/07/2018 Blood Pressure 1: 138/82 Code : 8480-6 BMI: 31.3 Code : 36065-8 Heart Rate 1 : 95 bpm Height: 5'6" SpO2: 98% Weight: 191 lbs 10/01/2017 Blood Pressure 1: 138/88 Code : 8480-6 BMI: 30.3 Code : 21045-6 Heart Rate 1 : 80 bpm Height: 5'6" SpO2: 98% Weight: 185 lbs 06/08/2017 Blood Pressure 1: 148/92 Code : 8480-6 BMI: 31.5 Code : 97081-6 Heart Rate 1 : 88 bpm Height: 5'6" SpO2: 98% Weight: 192 lbs 11/12/2016 Blood Pressure 1: 140/80 Code : 8480-6 BMI: 29.7 Code : 62304-8 Heart Rate 1 : 82 bpm Height: 5'6" SpO2: 96% Weight: 181 lbs 08/11/2016 Blood Pressure 1: 152/88 Code : 8480-6 BMI: 30.3 Code : 89606-2 Heart Rate 1 : 73 bpm Height: 5'6" SpO2: 98% Weight: 185 lbs 03/31/2016 Blood Pressure 1: 124/86 Code : 8480-6 BMI: 30.2 Code : 84191-3 Heart Rate 1 : 86 bpm Height: 5'6" SpO2: 95% Weight: 184 lbs 02/01/2016 Blood Pressure 1: 112/60 Code : 8480-6 BMI: 29.5 Code : 64102-1 Heart Rate 1 : 68 bpm Height: 5'6" SpO2: 98% Weight: 180 lbs 01/22/2016 Blood Pressure 1: 132/80 Code : 8480-6 BMI: 29.8 Code : 45803-1 Heart Rate 1 : 76 bpm Height: 5'6" SpO2: 98% Temperature: 35.7 (C) / 96.2 (F) Weight: 182 lbs 01/07/2016 Blood Pressure 1: 134/86 Code : 8480-6 BMI: 30.0 Code : 61771-1 Heart Rate 1 : 78 bpm Height: 5'6" SpO2: 98% Weight: 183 lbs 12/03/2015 Blood Pressure 1: 146/86 Code : 8480-6 BMI: 30.2 Code : 29336-6 Heart Rate 1 : 93 bpm Height: 5'6" SpO2: 98% Weight: 184 lbs 8 oz 09/17/2015 Blood Pressure 1: 140/88 Code : 8480-6 BMI: 29.5 Code : 15404-3 Heart Rate 1 : 77 bpm Height: 5'6" SpO2: 98% Weight: 180 lbs 05/29/2015 Blood Pressure 1: 140/80 Code : 8480-6 BMI: 28.2 Code : 53284-8 Heart Rate 1 : 83 bpm Height: 5'6" SpO2: 98% Weight: 172 lbs 12/12/2014 Blood Pressure 1: 150/92 Code : 8480-6 BMI: 28.2 Code : 49227-8 Heart Rate 1 : 91 bpm Height: 5'6" SpO2: 96% Weight: 172 lbs 11/23/2014 Blood Pressure 1: 138/92 Code : 8480-6 11/22/2014 Blood Pressure 1: 126/80 Code : 8480-6 BMI: 28.7 Code : 39433-5 Heart Rate 1 : 86 bpm Height: 5'6" SpO2: 97% Weight: 175 lbs 11/14/2014 Blood Pressure 1: 130/82 Code : 8480-6 BMI: 28.7 Code : 06091-8 Heart Rate 1 : 72 bpm Height: 5'6" Temperature: 36.3 (C) / 97.4 (F) Weight: 175 lbs 09/04/2014 Blood Pressure 1: 128/82 Code : 8480-6 BMI: 30.3 Code : 18991-7 Heart Rate 1 : 80 bpm Height: 5'6" Weight: 185 lbs 08/04/2014 Blood Pressure 1: 140/82 Code : 8480-6 BMI: 31.3 Code : 67372-4 Heart Rate 1 : 92 bpm Height: 5'6" SpO2: 99% Weight: 191 lbs 04/11/2014 Blood Pressure 1: 142/80 Code : 8480-6 BMI: 34.7 Code : 56097-6 Heart Rate 1 : 74 bpm Height: 5'6" Weight: 212 lbs 01/05/2014 Blood Pressure 1: 144/84 Code : 8480-6 BMI: 36.7 Code : 29620-5 Heart Rate 1 : 89 bpm Height: 5'6" SpO2: 97% Weight: 224 lbs 10/10/2013 Blood Pressure 1: 112/70 Code : 8480-6 BMI: 36.1 Code : 97108-9 Heart Rate 1 : 104 bpm Height: 5'6" Weight: 220 lbs 08/02/2013 Blood Pressure 1: 178/98 Code : 8480-6 BMI: 36.4 Code : 49770-3 Heart Rate 1 : 100 bpm Height: 5'6" Weight: 222 lbs 06/30/2013 Blood Pressure 1: 142/82 Code : 8480-6 BMI: 35.9 Code : 05389-6 Heart Rate 1 : 86 bpm Height: 5'6" SpO2: 98% Temperature: 36.3 (C) / 97.3 (F) Weight: 219 lbs 06/20/2013 Blood Pressure 1: 126/78 Code : 8480-6 BMI: 36.2 Code : 83319-5 Heart Rate 1 : 76 bpm Height: 5'6" Weight: 221 lbs 06/06/2013 Blood Pressure 1: 158/98 Code : 8480-6 BMI: 36.2 Code : 22694-8 Heart Rate 1 : 92 bpm Height: 5'6" Weight: 221 lbs 02/21/2013 Blood Pressure 1: 128/82 Code : 8480-6 BMI: 35.2 Code : 86257-2 Heart Rate 1 : 80 bpm Height: 5'6" Temperature: 35.7 (C) / 96.3 (F) Weight: 215 lbs 12/13/2012 Blood Pressure 1: 132/86 Code : 8480-6 BMI: 35.7 Code : 27467-5 Heart Rate 1 : 80 bpm Height: 5'6" Weight: 218 lbs 09/23/2012 Blood Pressure 1: 132/90 Code : 8480-6 BMI: 36.2 Code : 38570-8 Heart Rate 1 : 84 bpm Height: 5'6" Weight: 221 lbs 06/14/2012 Blood Pressure 1: 134/84 Code : 8480-6 Heart Rate 1: 84 bpm Respiratory Rate : 20 bpm Weight: 221 lbs 05/21/2012 Blood Pressure 1: 136/80 Code : 8480-6 BMI: 35.9 Code : 83211-5 Heart Rate 1 : 20 bpm Height: 5'6" Respiratory Rate: 16 bpm Temperature: 36.7 ( C) / 98.0 (F) Weight: 219 lbs Functional Status No Functional Status data History of Present Illness Symptom Name Status Result Effective Date Notes sinus congestion Location frontal sinuses 02/22/2018 None sinus congestion Quality fullness 02/22/2018 None sinus congestion Quality pressure 02/22/2018 None sinus congestion Onset and Resolution sudden in onset 02/22/2018 None sinus congestion Onset of Symptom 3 days ago 02/22/2018 None forearm pain Onset of Symptom 1 days ago 02/22/2018 None forearm pain Quality impacted 02/22/2018 None forearm pain Quality constant 02/22/2018 None forearm pain Quality sharp pain 02/22/2018 None forearm pain Pertinent Findings bruising 02/22/2018 None forearm pain Pertinent Findings decreased range of motion 02/22/2018 None forearm pain Pertinent Findings pain with movement 02/22/2018 None forearm pain Pertinent Findings pain at rest 02/22/2018 None hypertension Quality chronic 01/07/2018 None hypertension Quality intermittent 01/07/2018 None hypertension Onset and Resolution ongoing 01/07/2018 None hypertension Onset of Symptom during adulthood 01/07/2018 None hypertension Blood Pressure Values not checking blood pressure at home 01/07/2018 None hypertension Alleviating Factors medication 01/07/2018 None hypertension Exacerbating Factors stress 01/07/2018 None hypertension Pertinent Findings Denies dyspnea 01/07/2018 None hypertension Pertinent Findings Denies edema 01/07/2018 None diabetes mellitus Quality insulin dependent 01/07/2018 None diabetes mellitus Severity moderate 01/07/2018 None diabetes mellitus Alleviating Factors insulin 01/07/2018 None diabetes mellitus Exacerbating Factors diet 01/07/2018 None diabetes mellitus Nutrition ADA diet 01/07/2018 None diabetes mellitus Pertinent Findings Denies dizziness 01/07/2018 None diabetes mellitus Onset of Symptom onset as an adult 01/07/2018 None hypothyroid Onset and Resolution ongoing 01/07/2018 None hypothyroid Alleviating Factors medication 01/07/2018 None hypertension Quality chronic 10/01/2017 None hypertension Quality intermittent 10/01/2017 None hypertension Onset and Resolution ongoing 10/01/2017 None hypertension Onset of Symptom during adulthood 10/01/2017 None hypertension Blood Pressure Values not checking blood pressure at home 10/01/2017 None hypertension Alleviating Factors medication 10/01/2017 None hypertension Exacerbating Factors stress 10/01/2017 None hypertension Pertinent Findings Denies dyspnea 10/01/2017 None hypertension Pertinent Findings Denies edema 10/01/2017 None diabetes mellitus Quality insulin dependent 10/01/2017 None diabetes mellitus Severity moderate 10/01/2017 None diabetes mellitus Alleviating Factors insulin 10/01/2017 None diabetes mellitus Exacerbating Factors diet 10/01/2017 None diabetes mellitus Nutrition ADA diet 10/01/2017 None diabetes mellitus Pertinent Findings Denies dizziness 10/01/2017 None diabetes mellitus Onset of Symptom onset as an adult 10/01/2017 None hypothyroid Onset and Resolution ongoing 10/01/2017 None hypothyroid Alleviating Factors medication 10/01/2017 None hypertension Quality chronic 06/08/2017 None hypertension Quality intermittent 06/08/2017 None hypertension Onset and Resolution ongoing 06/08/2017 None hypertension Onset of Symptom during adulthood 06/08/2017 None hypertension Blood Pressure Values not checking blood pressure at home 06/08/2017 None hypertension Alleviating Factors medication 06/08/2017 None hypertension Exacerbating Factors stress 06/08/2017 None hypertension Pertinent Findings Denies dizziness 06/08/2017 "sometimes" hypertension Pertinent Findings Denies dyspnea 06/08/2017 None hypertension Pertinent Findings Denies edema 06/08/2017 None diabetes mellitus Onset of Symptom onset as an adult 06/08/2017 None diabetes mellitus Quality insulin dependent 06/08/2017 None diabetes mellitus Severity moderate 06/08/2017 None diabetes mellitus Alleviating Factors insulin 06/08/2017 None diabetes mellitus Exacerbating Factors diet 06/08/2017 None diabetes mellitus Nutrition ADA diet 06/08/2017 None diabetes mellitus Pertinent Findings Denies dizziness 06/08/2017 None diabetes mellitus Pertinent Findings Denies nausea 06/08/2017 "sometimes" diabetes mellitus Pertinent Findings numbness 06/08/2017 in her feet and hands diabetes mellitus Pertinent Findings tingling 06/08/2017 in her feet and hands hypothyroid Onset and Resolution ongoing 06/08/2017 None hypothyroid Alleviating Factors medication 06/08/2017 None hypertension Quality chronic 11/12/2016 None hypertension Quality intermittent 11/12/2016 None hypertension Onset and Resolution ongoing 11/12/2016 None hypertension Onset of Symptom during adulthood 11/12/2016 None hypertension Blood Pressure Values not checking blood pressure at home 11/12/2016 None hypertension Alleviating Factors medication 11/12/2016 None hypertension Exacerbating Factors stress 11/12/2016 None hypertension Pertinent Findings Denies dizziness 11/12/2016 "sometimes" hypertension Pertinent Findings Denies dyspnea 11/12/2016 None hypertension Pertinent Findings Denies edema 11/12/2016 None diabetes mellitus Onset of Symptom onset as an adult 11/12/2016 None diabetes mellitus Quality insulin dependent 11/12/2016 None diabetes mellitus Severity moderate 11/12/2016 None diabetes mellitus Alleviating Factors insulin 11/12/2016 None diabetes mellitus Exacerbating Factors diet 11/12/2016 None diabetes mellitus Nutrition ADA diet 11/12/2016 None diabetes mellitus Pertinent Findings Denies dizziness 11/12/2016 None diabetes mellitus Pertinent Findings Denies nausea 11/12/2016 "sometimes" diabetes mellitus Pertinent Findings numbness 11/12/2016 in her feet and hands diabetes mellitus Pertinent Findings tingling 11/12/2016 in her feet and hands hypothyroid Onset and Resolution ongoing 11/12/2016 None hypothyroid Alleviating Factors medication 11/12/2016 None diabetes mellitus Glucose monitoring occasional glucose testing 11/12/2016 2x week diabetes mellitus Blood glucose levels between 60 and 120 11/12/2016 None hypertension Quality chronic 08/11/2016 None hypertension Onset and Resolution ongoing 08/11/2016 None hypertension Onset of Symptom during adulthood 08/11/2016 None hypertension Alleviating Factors medication 08/11/2016 None hypertension Exacerbating Factors stress 08/11/2016 None hypertension Pertinent Findings dizziness 08/11/2016 "sometimes" hypertension Pertinent Findings Denies dyspnea 08/11/2016 None hypertension Pertinent Findings Denies edema 08/11/2016 None diabetes mellitus Onset of Symptom onset as an adult 08/11/2016 None diabetes mellitus Quality insulin dependent 08/11/2016 None diabetes mellitus Severity moderate 08/11/2016 None diabetes mellitus Alleviating Factors insulin 08/11/2016 None diabetes mellitus Exacerbating Factors diet 08/11/2016 None diabetes mellitus Nutrition ADA diet 08/11/2016 None diabetes mellitus Pertinent Findings dizziness 08/11/2016 "sometimes" diabetes mellitus Pertinent Findings nausea 08/11/2016 "sometimes" diabetes mellitus Pertinent Findings numbness 08/11/2016 in her feet diabetes mellitus Pertinent Findings tingling 08/11/2016 in her feet hypothyroid Onset and Resolution ongoing 08/11/2016 None hypothyroid Alleviating Factors medication 08/11/2016 None hypertension Blood Pressure Values not checking blood pressure at home 08/11/2016 None diabetes mellitus Test results Pt checking blood glucose readings, did not bring results to clinic 08/11/2016 None diabetes mellitus Glucose monitoring occasional glucose testing 08/11/2016 ( once a week) diarrhea Frequency of Episodes daily 08/11/2016 None diarrhea Quality intermittent 08/11/2016 None diarrhea Quality loose 08/11/2016 None diarrhea Quality watery 08/11/2016 None diarrhea Onset and Resolution ongoing 08/11/2016 None diarrhea Onset of Symptom approx. 1 years ago 08/11/2016 None diarrhea Timing of Episodes no specific time 08/11/2016 None diarrhea Pertinent Findings bloating 08/11/2016 None hypertension Quality intermittent 08/11/2016 None vomiting Quality intermittent 03/31/2016 None vomiting Onset and Resolution ongoing 03/31/2016 None vomiting Onset of Symptom 3 days ago 03/31/2016 None vomiting Frequency of Episodes daily 03/31/2016 None vomiting Pertinent Findings Denies back pain 03/31/2016 None vomiting Pertinent Findings Denies dyspnea 03/31/2016 None vomiting Pertinent Findings Denies nausea 03/31/2016 None diarrhea Quality improving 03/31/2016 None diarrhea Pertinent Findings Denies cramping 03/31/2016 None diarrhea Pertinent Findings Denies flatulence 03/31/2016 None diarrhea Pertinent Findings nausea 03/31/2016 None shortness of breath Quality intermittent 02/01/2016 None shortness of breath Quality worsening 02/01/2016 None shortness of breath Onset and Resolution ongoing 02/01/2016 None shortness of breath Onset of Symptom 1 months ago 02/01/2016 None shortness of breath Pertinent Findings Denies back pain 02/01/2016 None shortness of breath Pertinent Findings Denies chest discomfort 02/01/2016 None shortness of breath Pertinent Findings increased work of breathing 02/01/2016 None shortness of breath Limitation on Activities does not limit activities 02/01/2016 None cough Location in the throat 01/22/2016 None cough Quality worsening 01/22/2016 None cough Onset and Resolution ongoing 01/22/2016 None cough Onset of Symptom 1 weeks ago 01/22/2016 None cough Limitation on Activities does not limit activities 01/22/2016 None cough Frequency of Episodes daily 01/22/2016 None cough Pertinent Findings Denies chest discomfort 01/22/2016 None cough Pertinent Findings Denies fever 01/22/2016 None cough Pertinent Findings Denies weakness 01/22/2016 None hypertension Quality chronic 01/07/2016 None hypertension Onset and Resolution ongoing 01/07/2016 None hypertension Onset of Symptom during adulthood 01/07/2016 None hypertension Blood Pressure Values patient checking blood pressure at home - did not bring in readings 01/07/2016 None hypertension Alleviating Factors medication 01/07/2016 None hypertension Exacerbating Factors stress 01/07/2016 None hypertension Pertinent Findings Denies dizziness 01/07/2016 None hypertension Pertinent Findings Denies dyspnea 01/07/2016 None hypertension Pertinent Findings Denies edema 01/07/2016 None hypertension Pertinent Findings Denies palpitations 01/07/2016 None diabetes mellitus Onset of Symptom onset as an adult 01/07/2016 None diabetes mellitus Quality insulin dependent 01/07/2016 None diabetes mellitus Severity moderate 01/07/2016 None diabetes mellitus Alleviating Factors insulin 01/07/2016 -trulicity diabetes mellitus Exacerbating Factors diet 01/07/2016 None diabetes mellitus Nutrition ADA diet 01/07/2016 None diabetes mellitus Pertinent Findings Denies dizziness 01/07/2016 None diabetes mellitus Pertinent Findings Denies nausea 01/07/2016 None diabetes mellitus Pertinent Findings numbness 01/07/2016 in her feet and fingers diabetes mellitus Pertinent Findings tingling 01/07/2016 in her feet and fingers hypothyroid Onset and Resolution ongoing 01/07/2016 None hypothyroid Alleviating Factors medication 01/07/2016 None knee pain Location on the right 01/07/2016 None knee pain Location in the medial region 01/07/2016 None knee pain Quality sharp pain 01/07/2016 None knee pain Quality acute 01/07/2016 None knee pain Onset and Resolution sudden in onset 01/07/2016 None knee pain Frequency of Episodes daily 01/07/2016 None knee pain Limitation on Activities allows weight bearing activity 01/07/2016 None knee pain Limitation on Activities moderately limits activities 01/07/2016 None knee pain Pertinent Findings pain with movement 01/07/2016 None knee pain Pertinent Findings swelling 01/07/2016 if she works out knee pain Quality intermittent 01/07/2016 None knee pain Quality improving 01/07/2016 None knee pain Onset of Symptom 1 months ago 01/07/2016 None knee pain Quality throbbing 01/07/2016 None diabetes mellitus Test results Pt checking blood glucose readings, did not bring results to clinic 01/07/2016 None diabetes mellitus Glucose monitoring occasional glucose testing 01/07/2016 About 3 times per week diabetes mellitus Blood glucose levels between 60 and 120 01/07/2016 None dysphagia Location in the throat 01/07/2016 None dysphagia Quality intermittent 01/07/2016 None dysphagia Onset and Resolution ongoing 01/07/2016 None hypertension Quality chronic 12/03/2015 None hypertension Onset and Resolution ongoing 12/03/2015 None hypertension Alleviating Factors medication 12/03/2015 None hypertension Pertinent Findings Denies dizziness 12/03/2015 None hypertension Pertinent Findings Denies dyspnea 12/03/2015 None hypertension Pertinent Findings Denies edema 12/03/2015 None hypertension Pertinent Findings Denies palpitations 12/03/2015 None diabetes mellitus Onset of Symptom onset as an adult 12/03/2015 None diabetes mellitus Quality insulin dependent 12/03/2015 None diabetes mellitus Severity moderate 12/03/2015 None diabetes mellitus Nutrition ADA diet 12/03/2015 None diabetes mellitus Pertinent Findings Denies dizziness 12/03/2015 None diabetes mellitus Pertinent Findings Denies nausea 12/03/2015 None diabetes mellitus Pertinent Findings numbness 12/03/2015 in her feet and fingers diabetes mellitus Pertinent Findings tingling 12/03/2015 in her feet and fingers hypothyroid Onset and Resolution ongoing 12/03/2015 None hypothyroid Alleviating Factors medication 12/03/2015 None knee pain Location on the right 12/03/2015 None knee pain Location in the medial region 12/03/2015 None knee pain Quality acute 12/03/2015 None knee pain Quality constant 12/03/2015 None knee pain Quality sharp pain 12/03/2015 None knee pain Onset and Resolution sudden in onset 12/03/2015 None knee pain Onset of Symptom 4 days ago 12/03/2015 None knee pain Frequency of Episodes daily 12/03/2015 None knee pain Limitation on Activities allows weight bearing activity 12/03/2015 None knee pain Limitation on Activities moderately limits activities 12/03/2015 None knee pain Mechanism of injury unknown 12/03/2015 None knee pain Pertinent Findings pain with movement 12/03/2015 None knee pain Pertinent Findings swelling 12/03/2015 None hypertension Onset of Symptom during adulthood 12/03/2015 None hypertension Blood Pressure Values patient checking blood pressure at home - did not bring in readings 12/03/2015 None hypertension Exacerbating Factors stress 12/03/2015 None diabetes mellitus Exacerbating Factors diet 12/03/2015 None diabetes mellitus Alleviating Factors insulin 12/03/2015 -trulicity diabetes mellitus Test results Pt checking blood glucose at home, see scanned readings 2015 None diabetes mellitus Glucose monitoring occasional glucose testing 12/03/2015 ( couple times per week) hypertension Quality chronic 09/17/2015 None hypertension Onset and Resolution ongoing 09/17/2015 None hypertension Pertinent Findings Denies dizziness 09/17/2015 None hypertension Pertinent Findings Denies dyspnea 09/17/2015 None hypertension Pertinent Findings Denies edema 09/17/2015 None hypertension Pertinent Findings Denies palpitations 09/17/2015 None diabetes mellitus Onset of Symptom onset as an adult 09/17/2015 None diabetes mellitus Quality insulin dependent 09/17/2015 None diabetes mellitus Severity moderate 09/17/2015 None diabetes mellitus Nutrition ADA diet 09/17/2015 None diabetes mellitus Pertinent Findings Denies dizziness 09/17/2015 None hypertension Blood Pressure Values not checking blood pressure at home 09/17/2015 None hypertension Alleviating Factors medication 09/17/2015 None diabetes mellitus Test results Pt checking blood glucose readings, did not bring results to clinic 09/17/2015 -Has not been checking recently diabetes mellitus Glucose monitoring occasional glucose testing 09/17/2015 None diabetes mellitus Pertinent Findings Denies nausea 09/17/2015 None diabetes mellitus Pertinent Findings tingling 09/17/2015 in her feet and fingers diabetes mellitus Pertinent Findings numbness 09/17/2015 in her feet and fingers hypothyroid Onset and Resolution ongoing 09/17/2015 None hypothyroid Alleviating Factors medication 09/17/2015 None hypertension Quality chronic 05/29/2015 None hypertension Onset and Resolution ongoing 05/29/2015 None hypertension Pertinent Findings Denies dizziness 05/29/2015 None hypertension Pertinent Findings Denies dyspnea 05/29/2015 None hypertension Pertinent Findings Denies edema 05/29/2015 None diabetes mellitus Onset of Symptom onset as an adult 05/29/2015 this am 116 diabetes mellitus Quality insulin dependent 05/29/2015 None diabetes mellitus Severity moderate 05/29/2015 None diabetes mellitus Nutrition ADA diet 05/29/2015 None diabetes mellitus Pertinent Findings Denies dizziness 05/29/2015 None diabetes mellitus Pertinent Findings Denies lethargy 05/29/2015 None diabetes mellitus Glucose monitoring fasting 05/29/2015 None diabetes mellitus Test results Pt checking blood glucose readings, did not bring results to clinic 05/29/2015 None hypertension Blood Pressure Values patient checking blood pressure at home - did not bring in readings 05/29/2015 None hypertension Pertinent Findings palpitations 05/29/2015 frequently hypertension Quality chronic 12/12/2014 None hypertension Onset and Resolution ongoing 12/12/2014 None hypertension Blood Pressure Values pt checking blood pressure - see scanned document 12/12/2014 None hypertension Pertinent Findings Denies dizziness 12/12/2014 None hypertension Pertinent Findings Denies dyspnea 12/12/2014 None hypertension Pertinent Findings Denies edema 12/12/2014 None diabetes mellitus Onset of Symptom onset as an adult 12/12/2014 this am 116 diabetes mellitus Quality insulin dependent 12/12/2014 None diabetes mellitus Severity moderate 12/12/2014 None diabetes mellitus Nutrition ADA diet 12/12/2014 None diabetes mellitus Pertinent Findings Denies dizziness 12/12/2014 None diabetes mellitus Pertinent Findings Denies lethargy 12/12/2014 None diabetes mellitus Glucose monitoring daily 12/12/2014 None rash Location-Major on the upper body 11/22/2014 None rash Color red 2014 None rash Onset and Resolution sudden in onset 11/22/2014 None rash Onset of Symptom yesterday 11/22/2014 None rash Triggers certain medications 11/22/2014 None rash Pertinent Findings itching 11/22/2014 None rash Severity severe 11/22/2014 None rash Severity worsening 11/22/2014 None abdominal pain Location in the LLQ 11/14/2014 None abdominal pain Onset of Symptom 1 days ago 11/14/2014 None abdominal pain Quality stabbing 11/14/2014 None abdominal pain Pertinent Findings Denies back pain 11/14/2014 None abdominal pain Pertinent Findings Denies nausea 11/14/2014 None abdominal pain Pertinent Findings Denies urinary urgency 11/14/2014 None abdominal pain Pertinent Findings Denies fever 11/14/2014 None hypertension Quality chronic 09/04/2014 None hypertension Onset and Resolution ongoing 09/04/2014 None diabetes mellitus Onset of Symptom onset as an adult 09/04/2014 None diabetes mellitus Quality insulin dependent 09/04/2014 None diabetes mellitus Severity moderate 09/04/2014 None diabetes mellitus Nutrition ADA diet 09/04/2014 None diabetes mellitus Pertinent Findings Denies dizziness 09/04/2014 None diabetes mellitus Pertinent Findings Denies lethargy 09/04/2014 None hypertension Blood Pressure Values pt checking blood pressure - see scanned document 09/04/2014 None hypertension Pertinent Findings Denies dizziness 09/04/2014 None hypertension Pertinent Findings Denies dyspnea 09/04/2014 None hypertension Pertinent Findings Denies edema 09/04/2014 None diabetes mellitus Glucose monitoring daily 09/04/2014 None diabetes mellitus Test results Pt checking blood glucose at home, see scanned readings 2014 None hypertension Quality chronic 08/04/2014 Patient reports it has been running low at home hypertension Onset and Resolution ongoing 08/04/2014 None hypertension Blood Pressure Values patient checking blood pressure at home - did not bring in readings 08/04/2014 None diabetes mellitus Onset of Symptom onset as an adult 08/04/2014 None diabetes mellitus Quality insulin dependent 08/04/2014 None diabetes mellitus Severity moderate 08/04/2014 None diabetes mellitus Nutrition ADA diet 08/04/2014 None diabetes mellitus Pertinent Findings Denies dizziness 08/04/2014 None diabetes mellitus Pertinent Findings Denies lethargy 08/04/2014 None acute renal failure Onset and Resolution sudden in onset 04/11/2014 states she went for surgery and was told her renal function was poor and surgery was canceled. She was referred to sales and marketing professional at acute renal failure Onset of Symptom 1 weeks ago 04/11/2014 None acute renal failure Significant Family History hypertension 04/11/2014 None acute renal failure Significant Medical Conditions hypertension 04/11/2014 None acute renal failure Triggers no known associated factors 04/11/2014 None acute renal failure Pertinent Findings Denies anemia 04/11/2014 None acute renal failure Pertinent Findings Denies confusion 04/11/2014 None acute renal failure Pertinent Findings Denies cough 04/11/2014 None acute renal failure Pertinent Findings Denies dark urine 04/11/2014 None acute renal failure Pertinent Findings Denies fever 04/11/2014 None acute renal failure Pertinent Findings Denies left flank pain 04/11/2014 None acute renal failure Pertinent Findings Denies nausea 04/11/2014 None acute renal failure Pertinent Findings Denies syncope 04/11/2014 None diabetes mellitus Quality insulin dependent 01/05/2014 None diabetes mellitus Test results HgbA1c level 8.0 01/05/2014 None diabetes mellitus Blood glucose levels greater than 120 01/05/2014 average 160s when testing diabetes mellitus Glucose monitoring occasional glucose testing 01/05/2014 None diabetes mellitus Significant Medications insulin 01/05/2014 None diabetes mellitus Alleviating Factors medication 01/05/2014 None diabetes mellitus Alleviating Factors insulin 01/05/2014 None diabetes mellitus Exacerbating Factors diet 01/05/2014 None diabetes mellitus Nutrition regular diet 01/05/2014 None diabetes mellitus Onset of Symptom onset as an adult 01/05/2014 None diabetes mellitus Exercise minimal exercise 01/05/2014 [facility] diabetes mellitus Pertinent Findings Denies dyspnea 01/05/2014 None diabetes mellitus Pertinent Findings Denies lethargy 01/05/2014 None diabetes mellitus Pertinent Findings nausea 01/05/2014 None diabetes mellitus Pertinent Findings Denies vomiting 01/05/2014 None diabetes mellitus Pertinent Findings Denies dizziness 01/05/2014 None diarrhea Quality chronic 01/05/2014 None diarrhea Onset and Resolution ongoing 01/05/2014 None diarrhea Onset of Symptom several years ago 01/05/2014 None diarrhea Limitation on Activities does not limit activities 01/05/2014 None diarrhea Frequency of Episodes 4-6 stools per day 01/05/2014 some days diarrhea Timing of Episodes after meals 01/05/2014 certain foods trigger hypertension Quality chronic 10/10/2013 None hypertension Onset and Resolution ongoing 10/10/2013 None diabetes mellitus Quality insulin dependent 10/10/2013 None diabetes mellitus Test results Pt checking blood glucose readings, did not bring results to clinic 10/10/2013 None hypertension Blood Pressure Values patient checking blood pressure at home - did not bring in readings 10/10/2013 None diabetes mellitus Onset of Symptom onset as an adult 10/10/2013 None diabetes mellitus Severity moderate 10/10/2013 None diabetes mellitus Test results HgbA1c level 8.4 10/10/2013 down from 11.3 3 months previously diabetes mellitus Glucose monitoring twice daily 10/10/2013 None diabetes mellitus Pertinent Findings Denies dizziness 10/10/2013 None diabetes mellitus Pertinent Findings Denies lethargy 10/10/2013 None diabetes mellitus Exercise no exercise 10/10/2013 None diabetes mellitus Nutrition ADA diet 10/10/2013 None insomnia Quality chronic 08/02/2013 None insomnia Severity moderate 08/02/2013 can't fall asleep . states has been since surg diabetes mellitus Quality insulin dependent 08/02/2013 None diabetes mellitus Quality chronic 08/02/2013 None diabetes mellitus Test results Pt checking blood glucose at home, see scanned readings 2013 None diabetes mellitus Onset of Symptom onset as an adult 08/02/2013 None diabetes mellitus Severity moderate 08/02/2013 None diabetes mellitus Pertinent Findings Denies behavioral changes 08/02/2013 None diabetes mellitus Pertinent Findings Denies lethargy 08/02/2013 None insomnia Onset and Resolution ongoing 08/02/2013 None insomnia Onset of Symptom 1 weeks ago 08/02/2013 She states that since she had her shoulder surgery - she cannot get to sleep - she states that she has pain in her shoulder and cannot get comfortable. She states that she cannot get comfortable - she takes a hydrocodone and it does not help her pain. cough Location in the lung 06/30/2013 None cough Onset of Symptom 7 days ago 06/30/2013 None cough Pertinent Findings Denies chest discomfort 06/30/2013 None cough Pertinent Findings chills 06/30/2013 None cough Pertinent Findings Denies fever 06/30/2013 None cough Pertinent Findings hoarseness 06/30/2013 None cough Pertinent Findings ill contacts 06/30/2013 None cough Pertinent Findings lethargy 06/30/2013 None cough Pertinent Findings Denies sputum production 06/30/2013 None cough Pertinent Findings weakness 06/30/2013 None sinus congestion Quality acute 06/30/2013 None sinus congestion Onset and Resolution ongoing 06/30/2013 None sinus congestion Onset of Symptom 5 days ago 06/30/2013 None sinus congestion Severity moderate 06/30/2013 None sinus congestion Frequency of Episodes unchanged 06/30/2013 None sinus congestion Significant Medical Conditions allergic rhinitis 06/30/2013 None sinus congestion Significant Medications antibiotics 06/30/2013 None sinus congestion Triggers no known associated factors 06/30/2013 None sinus congestion Location on both sides 06/30/2013 None sinus congestion Pertinent Findings cough 06/30/2013 None sinus congestion Pertinent Findings decreased energy level 06/30/2013 None sinus congestion Pertinent Findings facial pain 06/30/2013 None sinus congestion Pertinent Findings hoarseness 06/30/2013 None cough Limitation on Activities does not limit activities 06/30/2013 None cough Frequency of Episodes unchanged 06/30/2013 None cough Triggers no known associated factors 06/30/2013 None cough Pertinent Findings nasal congestion 06/30/2013 yellow diabetes mellitus Quality insulin dependent 06/20/2013 None diabetes mellitus Test results Pt checking blood glucose at home, see scanned readings 2013 None diabetes mellitus Onset of Symptom onset as an adult 06/20/2013 None diabetes mellitus Severity moderate 06/20/2013 None diabetes mellitus Test results HgbA1c level 11.3 06/20/2013 None diabetes mellitus Blood glucose levels greater than 120 06/20/2013 None diabetes mellitus Glucose monitoring daily 06/20/2013 None diabetes mellitus Significant Medications insulin 06/20/2013 None diabetes mellitus Alleviating Factors medication 06/20/2013 None diabetes mellitus Exacerbating Factors diet 06/20/2013 None diabetes mellitus Nutrition regular diet 06/20/2013 None diabetes mellitus Exercise no exercise 06/20/2013 None shoulder pain Quality constant 06/06/2013 None shoulder pain Pertinent Findings limited range of motion 06/06/2013 None shoulder pain Pertinent Findings loss of strength 06/06/2013 None shoulder pain Onset and Resolution ongoing 06/06/2013 None shoulder pain Mechanism of injury fall onto the shoulder 06/06/2013 None cough Location in the larynx 02/21/2013 patient went to [facility] thursday. was given a zpack, prednisone, and tessalon perles. patient says the tessalon works very shortly and the cough is all she can handle. cough Location in the throat 02/21/2013 None cough Quality acute None cough Quality productive 02/21/2013 None cough Quality worsening 02/21/2013 None cough Onset and Resolution sudden in onset 02/21/2013 None cough Onset of Symptom 3 days ago 02/21/2013 None cough Pertinent Findings dyspnea 02/21/2013 None cough Pertinent Findings chest discomfort 02/21/2013 None cough Pertinent Findings fever 02/21/2013 102 over weekend cough Pertinent Findings hoarseness 02/21/2013 None cough Pertinent Findings nasal congestion 02/21/2013 None cough Pertinent Findings sputum production 02/21/2013 None diabetes mellitus Test results Pt checking blood glucose at home, see scanned readings 2012 None diabetes mellitus Glucose monitoring occasional glucose testing 12/13/2012 None diabetes mellitus Pertinent Findings Denies dizziness 12/13/2012 None diabetes mellitus Pertinent Findings Denies dyspnea 12/13/2012 None diabetes mellitus Pertinent Findings Denies lethargy 12/13/2012 None diabetes mellitus Pertinent Findings Denies numbness 12/13/2012 None diabetes mellitus Pertinent Findings Denies tingling 12/13/2012 None diabetes mellitus Blood glucose levels greater than 120 12/13/2012 pt states that it has been in the 170's. diabetes mellitus Onset of Symptom onset as an adult 12/13/2012 None diabetes mellitus Quality non-insulin dependent 12/13/2012 None diabetes mellitus Severity moderate 12/13/2012 None diabetes mellitus Exercise no exercise 12/13/2012 None diabetes mellitus Quality non-insulin dependent 09/23/2012 None diabetes mellitus Quality NIDDM 09/23/2012 None diabetes mellitus Test results Pt checking blood glucose readings, did not bring results to clinic 09/23/2012 None diabetes mellitus Glucose monitoring occasional glucose testing 09/23/2012 None diabetes mellitus Blood glucose levels greater than 120 09/23/2012 None diabetes mellitus Exercise no exercise 09/23/2012 None diabetes mellitus Nutrition regular diet 09/23/2012 None diabetes mellitus Pertinent Findings Denies dizziness 09/23/2012 None diabetes mellitus Pertinent Findings Denies dyspnea 09/23/2012 None diabetes mellitus Pertinent Findings Denies lethargy 09/23/2012 None diabetes mellitus Pertinent Findings Denies nausea 09/23/2012 None diabetes mellitus Pertinent Findings Denies tingling 09/23/2012 None diabetes mellitus Pertinent Findings Denies numbness 09/23/2012 None hyperlipidemia Onset and Resolution ongoing 09/23/2012 None hyperlipidemia Quality increased TG 09/23/2012 None hyperlipidemia Pertinent Findings Denies nausea 09/23/2012 None hyperlipidemia Pertinent Findings Denies edema 09/23/2012 None diabetes mellitus Quality chronic 06/14/2012 None diabetes mellitus Quality worsening 06/14/2012 None diabetes mellitus Test results Pt checking blood glucose readings, did not bring results to clinic 06/14/2012 None diabetes mellitus Blood glucose levels greater than 120 06/14/2012 None diabetes mellitus Glucose monitoring daily 06/14/2012 None diabetes mellitus Alleviating Factors medication 06/14/2012 None diabetes mellitus Exacerbating Factors diet 06/14/2012 None diabetes mellitus Nutrition regular diet 06/14/2012 None diabetes mellitus Exercise no exercise 06/14/2012 None diabetes mellitus Pertinent Findings Denies dizziness 06/14/2012 None diabetes mellitus Pertinent Findings Denies nausea 06/14/2012 None diabetes mellitus Onset of Symptom onset as an adult 06/14/2012 None fever Quality acute None fever Onset and Resolution sudden in onset 05/21/2012 None cough Quality acute None cough Location in the larynx 05/21/2012 None cough Onset of Symptom 2 days ago 05/21/2012 None cough Limitation on Activities does not limit activities 05/21/2012 None fever Temperature 102-104 degrees 05/21/2012 None fever Triggers no known associated factors 05/21/2012 None fever Ill Contacts ill contacts 05/21/2012 None fever Pertinent Findings chills 05/21/2012 None fever Pertinent Findings cough 05/21/2012 None fever Pertinent Findings dizziness 05/21/2012 None fever Pertinent Findings Denies dyspnea 05/21/2012 None fever Pertinent Findings Denies edema 05/21/2012 None fever Pertinent Findings Denies nausea 05/21/2012 None fever Pertinent Findings Denies syncope 05/21/2012 None fever Pertinent Findings vomiting 05/21/2012 on or Thursday x 1, now having diarrhea cough Pertinent Findings Denies chest discomfort 05/21/2012 None cough Pertinent Findings Denies dyspnea 05/21/2012 None 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 fever Alleviating Factors Tylenol 05/21/2012 and motrin fever Timing of Episodes in the evening 05/21/2012 None cough Frequency of Episodes unchanged 05/21/2012 None Advance Directives No Advance Directive data Encounters Encounter Performer Location Codes Date [id number] EST. PATIENT, LEVEL IV Diagnosis: Other acute sinusitis[ICD10: J01.80] Diagnosis: Other allergic rhinitis[ICD10: J30.89] Diagnosis: Actinic keratosis[ICD10: L57.0] Diagnosis: Pain in left forearm[ICD10: M79.632] Diagnosis: Generalized anxiety disorder[ICD10: F41.1] Diagnosis: Major depressive disorder, single episode, moderate[ICD10: F32.1] Tiffanie Curran MD, [facility] CPT-4: 84047 02/22/2018 11406 EST. PATIENT, LEVEL IV Diagnosis: Type 2 diabetes mellitus with hyperglycemia[ICD10: E11.65] Diagnosis: Other specified hypothyroidism[ICD10: E03.8] Diagnosis: VACCIN FOR INFLUENZA[ICD10: Z23] Tiffanie Curran MD, [facility] CPT- 4: 13350 01/07/2018 61536 EST. PATIENT, LEVEL IV Diagnosis: Type 2 diabetes mellitus with hyperglycemia[ICD10: E11.65] Diagnosis: Other specified hypothyroidism[ICD10: E03.8] Diagnosis: Other allergic rhinitis[ICD10: J30.89] Tiffanie Curran MD, [facility] CPT-4: 64977 10/01/2017 20168 EST. PATIENT, LEVEL IV Diagnosis: Type 2 diabetes mellitus with hyperglycemia[ICD10: E11.65] Diagnosis: Hypothyroidism, unspecified[ICD10: E03.9] Diagnosis: Generalized anxiety disorder[ICD10: F41.1] Diagnosis: Major depressive disorder, single episode, moderate[ICD10: F32.1] Tiffanie Cruran MD, [facility] CPT-4: 47353 06/08/2017 ([id number]) PREV VISIT EST AGE 40-64 Diagnosis: Encounter for general adult medical examination without abnormal findings[ICD10: Z00.00] Eleonora Curran MD, [facility] CPT-4: 22184 11/12/2016 ([id number]) 44221 EST. PATIENT, LEVEL III Diagnosis: Allergic rhinitis due to pollen[ICD10: J30.1] Diagnosis: Acute upper respiratory infection, unspecified[ICD10: J06.9] Talya Curran MD, [facility] CPT-4: 40844 09/16/2016 ([id number]) 72871 EST. PATIENT, LEVEL IV Diagnosis: Essential (primary) hypertension[ICD10: I10] Diagnosis: Type 2 diabetes mellitus without complications[ICD10: E11.9] Diagnosis: Functional diarrhea[ICD10: K59.1] Diagnosis: Mixed hyperlipidemia[ICD10: E78.2] Eleonora Curran MD, [facility] CPT-4: 67880 08/11/2016 ([id number]) 12541 EST. PATIENT, LEVEL III Diagnosis: Cramp and spasm[ICD10: R25.2] Diagnosis: Nausea[ICD10: R11.0] Talya Curran MD, [facility] CPT-4: 24264 03/31/2016 ([id number]) 87214 EST. PATIENT, LEVEL IV Diagnosis: Cough[ICD10: R05] Diagnosis: Essential (primary) hypertension[ICD10: I10] Diagnosis: Hypothyroidism, unspecified[ICD10: E03.9] Diagnosis: Gastro-esophageal reflux disease without esophagitis[ICD10: K21.9] Talya Curran MD, [facility] CPT-4: 62333 02/01/2016 ([id number]) 36056 EST. PATIENT, LEVEL III Diagnosis: Cough[ICD10: R05] Diagnosis: Acute bronchitis, unspecified[ICD10: J20.9] Talya Curran MD, [facility] CPT-4: 65578 01/22/2016 ([id number]) 91607 EST. PATIENT, LEVEL IV Diagnosis: Type 2 diabetes mellitus without complications[ICD10: E11.9] Diagnosis: Essential (primary) hypertension[ICD10: I10] Diagnosis: Dysphagia, pharyngeal phase[ICD10: R13.13] Eleonora Curran MD, [facility] CPT-4: 62533 01/07/2016 ([id number]) 58697 EST. PATIENT, LEVEL IV Diagnosis: Type 2 diabetes mellitus without complications[ICD10: E11.9] Diagnosis: Essential (primary) hypertension[ICD10: I10] Diagnosis: Pain in right knee[ICD10: M25.561] Eleonora Curran MD, [facility] CPT-4: 66818 12/03/2015 ([id number]) 50270 EST. PATIENT, LEVEL IV Diagnosis: Type 2 diabetes mellitus with hyperglycemia[ICD10: E11.65] Diagnosis: Essential (primary) hypertension[ICD10: I10] Eleonora Curran MD, [facility] CPT-4: 95019 09/17/2015 ([id number]) 27914 EST. 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 PATIENT, LEVEL III Diagnosis: Diabetes mellitus, type II[ICD9: 250.00] Diagnosis: ESSENTIAL HYPERTENSION[ICD9: 401.9] Diagnosis: ESOPHAGEAL REFLUX[ICD9: 530.81] Eleonora Curran MD, [facility] CPT- 4: 69411 12/12/2014 ([id number]) 13909 EST. PATIENT, LEVEL III Diagnosis: ALLERGIC URTICARIA[ICD9: 708.0] Kristan Curran MD, [facility] CPT-4 : 48240 11/22/2014 ([id number]) 80279 EST. PATIENT, LEVEL III Diagnosis: Abdominal pain[ICD9: 789.00] Diagnosis: Status post gastric surgery[ICD9: V45.89] Kristan Curran MD, [facility] CPT-4: 62959 11/14/2014 ([id number]) 27943 EST. PATIENT, LEVEL III Diagnosis: Diabetes mellitus, type II[ICD9: 250.00] Diagnosis: ESSENTIAL HYPERTENSION[ICD9: 401.9] Diagnosis: OBESITY[ICD9: 278.00] Diagnosis: ESOPHAGEAL REFLUX[ICD9: 530.81] Eleonora Curran MD, [facility] CPT- 4: 91815 09/04/2014 ([id number]) 81227 EST. PATIENT, LEVEL IV Diagnosis: Diabetes mellitus, type II[ICD9: 250.00] Diagnosis: ESSENTIAL HYPERTENSION[ICD9: 401.9] Diagnosis: OBESITY[ICD9: 278.00] Eleonora Curran MD, [facility] CPT-4: 54067 08/04/2014 ([id number]) 39077 EST. PATIENT, LEVEL IV Diagnosis: Thyroid nodule[ICD9: 241.0] Diagnosis: Decreased renal function[ICD9: 593.9] Diagnosis: Diabetes mellitus, type II[ICD9: 250.00] Talya Curran MD, [facility] CPT-4: 49812 04/11/2014 ([id number]) 16643 EST. PATIENT, LEVEL IV Diagnosis: Chronic diarrhea[ICD9: 787.91] Diagnosis: DM W/O COMPLICATION TYPE II, UNCONTROLLED[ICD9: 250.02] Diagnosis: ESSENTIAL HYPERTENSION[ICD9: 401.9] Talya Curran MD, [facility] CPT-4: 45510 01/05/2014 02972 EST. PATIENT, LEVEL IV Diagnosis: DM W/O COMPLICATION TYPE II, UNCONTROLLED[ICD9: 250.02] Diagnosis: OBESITY[ICD9: 278.00] Diagnosis: Generalized anxiety disorder[ICD9: 300.02] Diagnosis: ESSENTIAL HYPERTENSION[ICD9: 401.9] Eleonora Curran MD, [facility] CPT-4: 82757 10/10/2013 ([id number]) 14100 EST. PATIENT, LEVEL IV Diagnosis: DM W/O COMPLICATION TYPE II, UNCONTROLLED[ICD9: 250.02] Diagnosis: Shoulder pain, right[ICD9: 719.41] Diagnosis: INSOMNIA NOS[ICD9: 780.52] Eleonora Curran MD, [facility] CPT- 4: 76439 08/02/2013 ([id number]) 76470 EST. PATIENT, LEVEL IV Diagnosis: DM W/O COMPLICATION TYPE II, UNCONTROLLED[SNOMED: 52858658] Diagnosis: COUGH[ICD9: 786.2] Diagnosis: MYALGIA AND MYOSITIS[ICD9: 729.1] Eleonora Curran MD, [facility] CPT-4: 51976 06/30/2013 ([id number]) 16694 EST. PATIENT, LEVEL III Diagnosis: DM W/O COMPLICATION TYPE II, UNCONTROLLED[SNOMED: 72541781] Eleonora Curran MD , [facility] CPT-4: 85996 06/20/2013 ([id number]) 19515 EST. PATIENT, LEVEL IV Diagnosis: DM W/O COMPLICATION TYPE II, UNCONTROLLED[SNOMED: 28465784] Eleonora Curran MD , [facility] CPT-4: 78999 06/06/2013 ([id number]) 59692 EST. PATIENT, LEVEL IV Diagnosis: Acute bronchitis[ICD9: 466.0] Diagnosis: Cough[ICD9: 786.2] Diagnosis: Myalgia[ICD9: 729.1] Eleonora Curran MD, [facility] CPT-4: 00662 02/21/2013 95227 EST. PATIENT, LEVEL IV Diagnosis: DM W/O COMPLICATION TYPE II, UNCONTROLLED[SNOMED: 43520580] Diagnosis: OBESITY[ICD9: 278.00] Diagnosis: Dietary counseling and surveillance[ICD9: V65.3] LAURENCE Manriquez MD CPT-4: 35748 12/13/2012 ([id number]) 10978 EST. PATIENT, LEVEL IV Diagnosis: DM W/O COMPLICATION TYPE II, UNCONTROLLED[SNOMED: 83930476] Diagnosis: HYPERLIPIDEMIA[ICD9: 272.4] LAURENCE Manriquez MD CPT- 4: 55124 09/23/2012 ([id number]) 08835 EST. PATIENT, LEVEL IV Diagnosis: Diabetes mellitus type 2, uncontrolled[SNOMED: 66848056] Diagnosis: Hyperlipidemia[ICD9: 272.4] Diagnosis: ESSENTIAL HYPERTENSION[SNOMED: 71139361] Talya Curran MD, [facility] CPT-4: 01201 06/14/2012 OFFICE VISIT, NEW - LEVEL 3 Diagnosis: Influenza[ICD9: 487.1] Diagnosis: COUGH[ICD9: 786.2] Diagnosis: FEVER NOS[ICD9: 780.60] Diagnosis: Diarrhea[ICD9: 787.91] Diagnosis: Diabetes mellitus, type II[SNOMED: 448420104] Talya Curran MD, [facility] CPT-4: 56156 05/21/2012 Plan of Care Planned Activity Notes Codes Status Date Visit Plan: Sinusitis - Pt has acute infection - pain in face, maxillary region, Pt informed to use decongestant, RX given to patient, sinus rinses also recommended. Call if symptoms do not show improvement. Allergies - chronic - recommended pt to use allergy medication as prescribed. Pt has been counseled as to the appropriate use of the medication. Pt to call if allergy symptoms are not controlled with the medication. If using nasal spray , instructions as follows: Nasal spray- use twice daily, one spray per nostril twice daily, after 30 minutes, rinse out nose with saline spray.. Use opposite hand per nostril to spray in the nasal steroid allergy spray. Anxiety - the patient has uncontrolled anxiety and will benefit from an SSRI on a daily basis to attempt control of the symptoms of anxiety (tachycardia, overwhelming sensations, stress, insomnia, etc). Pt is aware of the risks and benefits of treatment with the above medications. Depression - uncontrolled - Pt has been counseled about the diagnosis of depression, the potential causes, and risks associated with the diagnosis. The pt denies suicidal ideation, or plans. The patient has been counseled about treatment options, and understands the risks associated with treatment of depression, as well as the risks associated with NOT treating the depression. I believe the pt will benefit from medical intervention and an antidepressant has been appropriately prescribed for this patient. left forearm pain - The pt is to use prn antiinflammatories to manage acute pain. The patient is to call the office if the pain is worsening or does not improve. Cryotherapy of skin lesions - three cryotherapy on each lesion, dressed with neosporin and monitor lesions. 02/22/2018 Visit Plan: Sinusitis - Pt has acute infection - pain in face, maxillary region, Pt informed to use decongestant, RX given to patient, sinus rinses also recommended. Call if symptoms do not show improvement. Allergies - chronic - recommended pt to use allergy medication as prescribed. Pt has been counseled as to the appropriate use of the medication. Pt to call if allergy symptoms are not controlled with the medication. If using nasal spray , instructions as follows: Nasal spray- use twice daily, one spray per nostril twice daily, after 30 minutes, rinse out nose with saline spray.. Use opposite hand per nostril to spray in the nasal steroid allergy spray. Anxiety - the patient has uncontrolled anxiety and will benefit from an SSRI on a daily basis to attempt control of the symptoms of anxiety (tachycardia, overwhelming sensations, stress, insomnia, etc). Pt is aware of the risks and benefits of treatment with the above medications. Depression - uncontrolled - Pt has been counseled about the diagnosis of depression, the potential causes, and risks associated with the diagnosis. The pt denies suicidal ideation, or plans. The patient has been counseled about treatment options, and understands the risks associated with treatment of depression, as well as the risks associated with NOT treating the depression. I believe the pt will benefit from medical intervention and an antidepressant has been appropriately prescribed for this patient. left forearm pain - The pt is to use prn antiinflammatories to manage acute pain. The patient is to call the office if the pain is worsening or does not improve. Cryotherapy of skin lesions - three cryotherapy on each lesion, dressed with neosporin and monitor lesions. 02/22/2018 Appointment: [facility]iff[facility] Cr [facility]el[phone] (15 min) Moderate 02/22/2018 Patient Education: Patient Medication Summary Completed 02/22/2018 Patient Education: Cough Completed 02/22/2018 Patient Education: Depression Completed 02/22/2018 Visit Plan: Diabetes Mellitus - I have recommended for the patient to have follow up labs prior to the next office visit. The patient has been instructed to continue with current medications as previously directed, continue with regular FSBS monitoring to assure continued control of diabetes. Pt to call for any acute concerns, complaints, or if the blood glucose readings are starting to become less controlled. I have recommended for the patient to follow more strictly to the diabetic diet as discussed in clinic to allow for greater blood glucose control. Hypothyroidism - pt with chronic hypothyroidism, continue with current medication, will monitor pt to signs or symptoms of lack of adequate supplementation. Pt is to continue with current dose of medication unless directed otherwise. Check labs at regular intervals wither q 3 months or q 6 months based on previous levels of control. 01/07/2018 Appointment: Tiffanie Cr WPtel: Formerly named [facility] [place] (15 min) Moderate 01/07/2018 Patient Education: Patient Medication Summary Completed 01/07/2018 Patient Education: Diabetes Completed 01/07/2018 Appointment: Tiffanie Cr WPtel: Formerly named [facility] [place] [place] (15 min) Moderate 12/31/2017 Patient Education: Patient Medication Summary Completed 12/31/2017 Visit Plan: Diabetes Mellitus - I have recommended for the patient to have follow up labs prior to the next office visit. The patient has been instructed to continue with current medications as previously directed, continue with regular FSBS monitoring to assure continued control of diabetes. Pt to call for any acute concerns, complaints, or if the blood glucose readings are starting to become less controlled. I have recommended for the patient to follow more strictly to the diabetic diet as discussed in clinic to allow for greater blood glucose control. Hypothyroidism - pt with chronic hypothyroidism, continue with current medication, will monitor pt to signs or symptoms of lack of adequate supplementation. Pt is to continue with current dose of medication unless directed otherwise. Check labs at regular intervals wither q 3 months or q 6 months based on previous levels of control. Allergies - chronic - recommended pt to use allergy medication as prescribed. Pt has been counseled as to the appropriate use of the medication. Pt to call if allergy symptoms are not controlled with the medication. If using nasal spray, instructions as follows: Nasal spray- use twice daily, one spray per nostril twice daily, after 30 minutes, rinse out nose with saline spray.. Use opposite hand per nostril to spray in the nasal steroid allergy spray. 10/01/2017 Appointment: Tiffanie Crtel: Formerly named [facility]5 [facility] (15 min) Moderate 10/01/2017 Patient Education: Patient Medication Summary Completed 10/01/2017 Appointment: Tiffanie Crtel: [phone] [facility] (15 min) Moderate 09/07/2017 Visit Plan: Diabetes Mellitus - Uncontrolled - I have recommended for the patient to have follow up labs prior to the next office visit. The patient has been instructed to continue with current medications as previously directed, continue with regular FSBS monitoring to assure continued control of diabetes. Pt to call for any acute concerns, complaints, or if the blood glucose readings are starting to become less controlled. I have recommended for the patient to follow more strictly to the diabetic diet as discussed in clinic to allow for greater blood glucose control. Anxiety - the patient has uncontrolled anxiety and will benefit from an SSRI on a daily basis to attempt control of the symptoms of anxiety (tachycardia, overwhelming sensations, stress, insomnia, etc). Pt is aware of the risks and benefits of treatment with the above medications. Depression - uncontrolled - Pt has been counseled about the diagnosis of depression, the potential causes, and risks associated with the diagnosis. The pt denies suicidal ideation, or plans. The patient has been counseled about treatment options, and understands the risks associated with treatment of depression, as well as the risks associated with NOT treating the depression. I believe the pt will benefit from medical intervention and an antidepressant has been appropriately prescribed for this patient. 06/08/2017 Appointment: Tiffanie Cr WPtel: [phone] [facility] (30 min) Complex 06/08/2017 Patient Education: Patient Medication Summary Completed 06/08/2017 Visit Plan: Well Adult - pt was counseled about diet, exercise, and encouraged to follow a heart healthy diet and increase activity level. The patient was instructed to RTC yearly for well adult exams and PRN for acute illnesses. The pt was also instructed to have yearly labs for check of cholesterol, thyroid, chem panel, CBC, and renal functioning. 11/12/2016 Appointment: Eleonora Curran WPtel: [phone] [facility] (15 min) Moderate 11/12/2016 Patient Education: Patient Medication Summary Completed 11/12/2016 Patient Education: Patient Medication Summary Completed 11/12/2016 Appointment: Eleonora Curran WPtel: [phone] [facility] (15 min) Moderate 11/06/2016 Visit Plan: Allergies - chronic - recommended pt to use allergy medication as prescribed. Pt has been counseled as to the appropriate use of the medication. Pt to call if allergy symptoms are not controlled with the medication. If using nasal spray, instructions as follows: Nasal spray- use twice daily, one spray per nostril twice daily, after 30 minutes, rinse out nose with saline spray.. Use opposite hand per nostril to spray in the nasal steroid allergy spray. URI - Pt advised to increase fluids, vitamin C. Discussed natural and expected course of this diagnosis and need to alert me if symptoms do not follow expected course, or if any worse. RX sent to patient's pharmacy. 09/16/2016 Appointment: Talya Hernandez WPtel: [phone] [phone] [place] (10 min) Simple 09/16/2016 Patient Education: Patient Medication Summary Completed 09/16/2016 Care Plan: SCREENINGMAMMOGRAPHYDIGITAL LOINC : 84132-1 Pending 08/16/2016 Visit Plan: Diabetes Mellitus - Uncontrolled - per recent FSBS reports. I have recommended for the patient to have follow up labs prior to the next office visit. The patient has been instructed to continue with current medications as previously directed, continue with regular FSBS monitoring to assure continued control of diabetes. Pt to call for any acute concerns, complaints, or if the blood glucose readings are starting to become less controlled. I have recommended for the patient to follow more strictly to the diabetic diet as discussed in clinic to allow for greater blood glucose control. Hyperlipidemia - pt has been counseled about appropriate diet, exercise , and need for low fat food choices. I have discussed the need for the patient to take medications as prescribed. If the patient has negative side effects from the medication, they are to CALL the office and not abruptly discontinue the medication without discussion with a practitioner in the office. We will check labs in 3-6 months for follow up on the patient's chronic medical problem and to assure normal liver response to medications. Bloating/diarrhea - rx for questran. Hypertension - uncontrolled - the patient's medications have been modified as documented in the visit note. The patient has been counseled to cut back on salt in diet for a no added salt diet, low fat diet, start an exercise program with low weight bearing exercises and higher aerobic activity for heart health. The patient is to check blood pressure readings as an outpatient and either fax, call, or email the readings to the office next week for practitioner to review. The pt is to call for acute concerns. 08/11/2016 Appointment: Eleonora Curran WPtel: Formerly named [facility] (15 min) Moderate 08/11/2016 Patient Education: Patient Medication Summary Completed 08/11/2016 Patient Education: Obesity Completed 08/11/2016 Appointment: [facility] Curran [facility]Ptel[phone] [facility] [place] (15 min) Moderate 07/14/2016 Patient Education: Patient Medication Summary Completed 07/04/2016 Care Plan: Cbc With Differential Pending 07/04/2016 Care Plan: Comp Metabolic Pending 07/04/2016 Care Plan: Tsh Pending 07/04/2016 Care Plan: Lipid Pending 07/04/2016 Care Plan: %Hba1C LOINC : 59765-7 Pending 07/04/2016 Care Plan: Free T4 Pending 07/04/2016 Appointment: Eleonora Curran WPtel: Formerly named [facility]8 [facility] (15 min) Moderate 06/16/2016 Appointment: Eleonora Curran WPtel: [phone] [facility] (15 min) Moderate 05/06/2016 Visit Plan: Gastroenteritis - discussed need to stay away from milk products while acutely ill with diarrhea and nausea and emesis as it may worsen the symptoms. Liquids initially until the nausea improves, then recommend to advance to bland diet for 1 day, then advance as tolerated. Call if symptoms not improved. 03/31/2016 Appointment: Talya Hernandez WPtel: Formerly named [facility]1 [phone] (10 min) Simple 03/31/2016 Patient Education: Patient Medication Summary Completed 03/31/2016 Visit Plan: Cough-get chest xray-start dexilant daily HTN- blood pressures normal but patient extremely fatigued-monitor blood pressures at home to ensure its not dropping too low Hypothyroidism-check labs Esophageal Reflux - the patient has been counseled against excessive intake of caffeine, spicy foods, peppermint, and cinnamon - all of which can exacerbate esophageal reflux. The patient is to take medications as prescribed and call the office if the symptoms are not improving. 02/01/2016 Appointment: Talya Hernandez WPtel: Formerly named [facility]2 [phone] (30 min) Complex 02/01/2016 Patient Education: Patient Medication Summary Completed 02/01/2016 Visit Plan: Bronchitis - acute case of bronchitis identified. Pt has been given antibiotics, breathing treatments as appropriate, and pt has been instructed to call if symptoms are not improved, or if symptoms acutely worsen. 01/22/2016 Appointment: Talya Hernandez WPtel: Formerly named [facility]1 [phone] (15 min) Moderate 01/22/2016 Patient Education: Patient Medication Summary Completed 01/22/2016 Visit Plan: Hypertension - well controlled - continue with current medications, continue with no added salt diet. Pt has been encouraged to exercise daily. The pt has been advised to call the office if there are any acute concerns about change in blood pressure readings at home. Diabetes Mellitus - controlled - per recent FSBS reports. I have recommended for the patient to have follow up labs prior to the next office visit. The patient has been instructed to continue with current medications as previously directed, continue with regular FSBS monitoring to assure continued control of diabetes. Pt to call for any acute concerns, complaints, or if the blood glucose readings are starting to become less controlled. Dysphagia - supportive care - continue to monitor 01/07/2016 Appointment: [facility]on[facility] Curran [facility]Ptel[phone] (15 min) Moderate 01/07/2016 Patient Education: Patient Medication Summary Completed 01/07/2016 Patient Education: Obesity Completed 01/07/2016 Visit Plan: Hypertension - well controlled - continue with current medications, continue with no added salt diet. Pt has been encouraged to exercise daily. The pt has been advised to call the office if there are any acute concerns about change in blood pressure readings at home. Diabetes Mellitus - controlled - per recent FSBS reports. I have recommended for the patient to have follow up labs prior to the next office visit. The patient has been instructed to continue with current medications as previously directed, continue with regular FSBS monitoring to assure continued control of diabetes. Pt to call for any acute concerns, complaints, or if the blood glucose readings are starting to become less controlled. Right knee pain - rx for vimovo - pt to call if not improving. 12/03/2015 Patient Education: Patient Medication Summary Completed 12/03/2015 Patient Education: Obesity Completed 12/03/2015 Patient Education: Hypertension Completed 12/03/2015 Visit Plan: Diabetes Mellitus - Uncontrolled - per recent FSBS reports. I have recommended for the patient to have follow up labs prior to the next office visit. The patient has been instructed to continue with current medications as previously directed, continue with regular FSBS monitoring to assure continued control of diabetes. Pt to call for any acute concerns, complaints, or if the blood glucose readings are starting to become less controlled. I have recommended for the patient to follow more strictly to the diabetic diet as discussed in clinic to allow for greater blood glucose control. Cooper started - victoza stopped 09/17/2015 Appointment: [facility] Curran [facility]Ptel[phone] (15 min) Moderate 09/17/2015 Patient Education: Patient Medication Summary Completed 09/17/2015 Patient Education: Obesity Completed 09/17/2015 Patient Education: Hypertension Completed 09/17/2015 Patient Education: Patient Medication Summary Completed 09/14/2015 Visit Plan: Hypertension - uncontrolled - the patient's medications have been modified as documented in the visit note. The patient has been counseled to cut back on salt in diet for a no added salt diet, low fat diet, start an exercise program with low weight bearing exercises and higher aerobic activity for heart health. The patient is to check blood pressure readings as an outpatient and either fax, call, or email the readings to the office next week for practitioner to review. The pt is to call for acute concerns. Diabetes Mellitus - controlled - per recent FSBS reports. I have recommended for the patient to have follow up labs prior to the next office visit. The patient has been instructed to continue with current medications as previously directed, continue with regular FSBS monitoring to assure continued control of diabetes. Pt to call for any acute concerns, complaints, or if the blood glucose readings are starting to become less controlled. Neuropathy with pt status post gastric bypass - recommended a patient to have vitamin b12 and vitamin D level. 05/29/2015 Patient Education: Patient Medication Summary Completed 05/29/2015 Patient Education: Hypertension Completed 05/29/2015 Appointment: [facility] Curran [facility]Ptel[phone] (15 min) Moderate 05/22/2015 Appointment: (15 min) Moderate 04/18/2015 Patient Education: Patient Medication Summary Completed 04/11/2015 Visit Plan: Diabetes Mellitus - controlled - per recent FSBS reports. I have recommended for the patient to have follow up labs prior to the next office visit. The patient has been instructed to continue with current medications as previously directed, continue with regular FSBS monitoring to assure continued control of diabetes. Pt to call for any acute concerns, complaints, or if the blood glucose readings are starting to become less controlled. HTN - blood pressure elevated today in clinic. Pt to continue with current treatment - her blood pressure readings at home are normal. Overweight - improving with dietary control and post-gastric bypass surgery.. Hypothyroidism - pt with chronic hypothyroidism, continue with current medication, will monitor pt to signs or symptoms of lack of adequate supplementation. Pt is to continue with current dose of medication unless directed otherwise. Check labs at regular intervals wither q 3 months or q 6 months based on previous levels of control. 12/12/2014 Appointment: Derek Currany [facility]Ptel[phone] (15 min) Moderate 12/12/2014 Patient Education: Patient Medication Summary Completed 12/12/2014 Patient Education: Hypertension Completed 12/12/2014 Appointment: [facility]aly[facility] Hernandez [facility]Ptel: [facility] Follow up 11/28/2014 Patient Education: Patient Medication Summary Completed 11/23/2014 Visit Plan: Allergic Reaction/Hives - discussed diagnosis with patient, need to avoid allergen, and when/if the patient should go to the emergency room. Pt was instructed to take benadryl 25mg q 6 hours x 48 hours, and pepcid 20mg bid x 48 hours, pt also given RX for prednisone taper. 11/22/2014 Appointment: (10 min) Simple 11/22/2014 Patient Education: Patient Medication Summary Completed 11/22/2014 Visit Plan: Abdominal pain - UA negative. Check labs today. CT abdomen scheduled for tomorrow AM. RX for antibiotic sent to pt's pharmacy - pt advised to avoid seeds, nuts, popcorn, or any other food which has been proven to upset the pt's stomach. Patient is currently scheduled for a routine colonoscopy with Dr. Thomason on of this week. States she is supposed to start the prep tomorrow at 5 pm. Recommend pt wait to start prep until the results of the CT tomorrow. 11/14/2014 Appointment: (30 min) Complex 11/14/2014 Patient Education: Patient Medication Summary Completed 11/14/2014 Visit Plan: Diabetes Mellitus - controlled - per recent FSBS reports. I have recommended for the patient to have follow up labs prior to the next office visit. The patient has been instructed to continue with current medications as previously directed, continue with regular FSBS monitoring to assure continued control of diabetes. Pt to call for any acute concerns, complaints, or if the blood glucose readings are starting to become less controlled.victoza sample - [id number] exp 02/2016 novonordisk Hypertension - well controlled - continue with current medications, continue with no added salt diet. Pt has been encouraged to exercise daily. The pt has been advised to call the office if there are any acute concerns about change in blood pressure readings at home. 09/04/2014 Appointment: Eleonora Curran WPtel: [phone] [facility] Follow up 09/04/2014 Patient Education: Patient Medication Summary Completed 09/04/2014 Patient Education: Hypertension Completed 09/04/2014 Care Plan: Referral Order SNOMED-CT : [id number] Ordered 09/04/2014 Visit Plan: Hypertension - well controlled - continue with current medications, continue with no added salt diet. Pt has been encouraged to exercise daily. The pt has been advised to call the office if there are any acute concerns about change in blood pressure readings at home. pt to stop cardizem, stop diovan, stop current toprol pt to start on 1/2 pill of the metoprolol tartate twice daily x 1 week, then increase to a full pill twice daily if blood pressure is at or above 140 for top number or 90 for bottom number on blood pressure check. Diabetes Mellitus - controlled - per recent FSBS reports. I have recommended for the patient to have follow up labs prior to the next office visit. The patient has been instructed to continue with current medications as previously directed, continue with regular FSBS monitoring to assure continued control of diabetes. Pt to call for any acute concerns, complaints, or if the blood glucose readings are starting to become less controlled. pt to decrease lantus to 10 units daily stop metformin 08/04/2014 Appointment: Eleonora Curran [facility]Ptel: [phone] Follow up 08/04/2014 Patient Education: Patient Medication Summary Completed 08/04/2014 Patient Education: Hypertension Completed 08/04/2014 Visit Plan: Thyroid nodules-nodule on left lobe has increased in size-biopsy scheduled for Decrease renal function- secondary to dehydration-repeat labs-maintain adequate oral intake-follow up with sales and marketing professional as scheduled DM-hgb a1c improved-continue with same medications 04/11/2014 Appointment: Follow up 04/11/2014 Patient Education: Patient Medication Summary Completed 04/11/2014 Visit Plan: Diabetes Mellitus - Uncontrolled - per recent FSBS reports. I have recommended for the patient to have follow up labs prior to the next office visit. The patient has been instructed to continue with current medications as previously directed, continue with regular FSBS monitoring to assure continued control of diabetes. Pt to call for any acute concerns, complaints, or if the blood glucose readings are starting to become less controlled. I have recommended for the patient to follow more strictly to the diabetic diet as discussed in clinic to allow for greater blood glucose control. Chronic diarrhea-RX for bentyl-repeat colonoscopy Hypertension - well controlled - continue with current medications, continue with no added salt diet. Pt has been encouraged to exercise daily. The pt has been advised to call the office if there are any acute concerns about change in blood pressure readings at home. 01/05/2014 Appointment: Follow up 01/05/2014 Patient Education: Patient Medication Summary Completed 01/05/2014 Appointment: Eleonora Curran WPtel: Formerly named [facility] Follow up 01/03/2014 Visit Plan: Diabetes Mellitus - Uncontrolled - per recent FSBS reports. I have recommended for the patient to have follow up labs prior to the next office visit. The patient has been instructed to continue with current medications as previously directed, continue with regular FSBS monitoring to assure continued control of diabetes. Pt to call for any acute concerns, complaints, or if the blood glucose readings are starting to become less controlled. I have recommended for the patient to follow more strictly to the diabetic diet as discussed in clinic to allow for greater blood glucose control. Pt has had a 2 point drop in her Hgba1c, and this is equal to over 100mg/dl decrease in her overall average blood glucose level. Nevertheless, she needs to have further improvement in her DM control, therefore she was instructed to do the following: Increase lantus to 40 units daily. Hypertension - well controlled - continue with current medications, continue with no added salt diet. Pt has been encouraged to exercise daily. The pt has been advised to call the office if there are any acute concerns about change in blood pressure readings at home. Shoulder pain - pt needs to see her surgeon about shoulder evaluation for persistent pain in her shoulder. Anxiety - pt states that she took a 1/2 of one of her mom's xanax because she was having trouble relaxing and getting to sleep and she felt wonderful the next day and finally had less shoulder discomfort because she was able to relax. 10/10/2013 Appointment: Eleonora Curran WPtel: [phone] [facility] Follow up 10/10/2013 Patient Education: Patient Medication Summary Completed 10/10/2013 Patient Education: Hypertension Completed 10/10/2013 Appointment: Eleonora Curran WPtel: Formerly named [facility] Follow up 09/13/2013 Appointment: Eleonora Curran WPtel: Formerly named [facility] Follow up 08/03/2013 Visit Plan: Diabetes Mellitus - Uncontrolled - per recent FSBS reports. I have recommended for the patient to have follow up labs prior to the next office visit. The patient has been instructed to continue with current medications as previously directed, continue with regular FSBS monitoring to assure continued control of diabetes. Pt to call for any acute concerns, complaints, or if the blood glucose readings are starting to become less controlled. I have recommended for the patient to follow more strictly to the diabetic diet as discussed in clinic to allow for greater blood glucose control.Pt has been advised to increase her lantus to 35 units and keep on her metformin ER as she is currently taking Uncontrolled shoulder pain - Pt is to try percocet for her shoulder pain. Insomnia due to uncontrolled pain - I have advised Kylee that we need to try to control her pain, if the insomnia is still a problem despite control of her pain, then we will look into other treatment options. 08/02/2013 [facility]ment[phone] [facility] 08/02/2013 Patient Education: Patient Medication Summary Completed 08/02/2013 Visit Plan: Diabetes Mellitus - Uncontrolled - per recent FSBS reports. I have recommended for the patient to have follow up labs prior to the next office visit. The patient has been instructed to continue with current medications as previously directed, continue with regular FSBS monitoring to assure continued control of diabetes. Pt to call for any acute concerns, complaints, or if the blood glucose readings are starting to become less controlled. I have recommended for the patient to follow more strictly to the diabetic diet as discussed in clinic to allow for greater blood glucose control. Due to night-time symptoms of hypoglycemia - I have advised the pt to make the following changes: decrease metformin to 1000mg one time daily no change to victoza increase lantus to 20 units daily. Myalgia/fatigue - pt is to hold her livalo and we will re-eval her symptoms in one month at office visit - continue with dosing of medications for pneumonia as per urgent care. 06/30/2013 Appointment: Eleonora Curran WPtel: Formerly named [facility] Sick 06/30/2013 Patient Education: Patient Medication Summary Completed 06/30/2013 Visit Plan: Diabetes Mellitus - Uncontrolled - per recent FSBS reports. I have recommended for the patient to have follow up labs prior to the next office visit. The patient has been instructed to continue with current medications as previously directed, continue with regular FSBS monitoring to assure continued control of diabetes. Pt to call for any acute concerns, complaints, or if the blood glucose readings are starting to become less controlled. I have recommended for the patient to follow more strictly to the diabetic diet as discussed in clinic to allow for greater blood glucose control. Diabetes diet discussed in detail with patient today. 06/20/2013 Appointment: Eleonora Curran WPtel: [phone] [facility] Diabetic education 06/20/2013 Patient Education: Patient Medication Summary Completed 06/20/2013 Appointment: Eleonora Curran WPtel: Formerly named [facility] Follow up 06/13/2013 Visit Plan: Shoulder pain - recommended the following: NAPROXEN 500MG TWICE DAILY WITH FOOD FOR ARM PAIN. MRI OF SHOULDER Diabetes Mellitus - Uncontrolled - per recent FSBS reports. I have recommended for the patient to have follow up labs prior to the next office visit. The patient has been instructed to continue with current medications as previously directed, continue with regular FSBS monitoring to assure continued control of diabetes. Pt to call for any acute concerns, complaints, or if the blood glucose readings are starting to become less controlled. I have recommended for the patient to follow more strictly to the diabetic diet as discussed in clinic to allow for greater blood glucose control. LANTUS 5 UNITS NIGHTLY X 1 WEEK THEN INCREASE TO 10 UNITS NIGHTLY 06/06/2013 Patient Education: Patient Medication Summary Completed 06/06/2013 Visit Plan: Bronchitis - acute case of bronchitis, pt is to finish her antibiotics, steroids, and she has been instructed to call if symptoms are not improved, or if symptoms acutely worsen. Cough- phenergan with codeine rx called to pharmacy. Myalgia - may be due to cholesterol medications - pt is to hold her livalo and fish oil x 1 week, call if myalgias do not improve, or, after restart of medication if they come back worse than before her acute bronchitis. 02/21/2013 [facility]ment: [phone] [facility] [facility] 02/21/2013 Patient Education: Patient Medication Summary Completed 02/21/2013 Visit Plan: Diabetes Mellitus - Uncontrolled - per recent FSBS reports. I have recommended for the patient to have follow up labs prior to the next office visit. The patient has been instructed to continue with current medications as previously directed, continue with regular FSBS monitoring to assure continued control of diabetes. Pt to call for any acute concerns, complaints, or if the blood glucose readings are starting to become less controlled. I have recommended for the patient to follow more strictly to the diabetic diet as discussed in clinic to allow for greater blood glucose control. Pt is to have hgba1c checked MUKUND. Pt to continue with current dose of victoza. Pt to start on weight loss agenda - increase physical activity. Pt given goal of 10# weight loss in 3 months. 12/13/2012 Appointment: [phone] [facility] 12/13/2012 Patient Education: Patient Medication Summary Completed 12/13/2012 Patient Education: .Lyndon mcnally Diabetic meal planning guide Completed 12/13 Visit Plan: Diabetes Mellitus - Uncontrolled - per recent FSBS reports. I have recommended for the patient to have follow up labs prior to the next office visit. The patient has been instructed to continue with current medications as previously directed, continue with regular FSBS monitoring to assure continued control of diabetes. Pt to call for any acute concerns, complaints, or if the blood glucose readings are starting to become less controlled. I have recommended for the patient to follow more strictly to the diabetic diet as discussed in clinic to allow for greater blood glucose control. Hyperlipidemia - pt has been counseled about appropriate diet, exercise , and need for low fat food choices. I have discussed the need for the patient to take medications as prescribed. If the patient has negative side effects from the medication, they are to CALL the office and not abruptly discontinue the medication without discussion with a practicioner in the office. We will check labs in 3-6 months for follow up on the patient's chronic medical problem and to assure normal liver response to medications. 09/23/2012 Appointment: [phone] [facility] Follow [facility] 09/23/2012 Patient Education: Patient Medication Summary Completed 09/23/2012 Visit Plan: Diabetes Mellitus - Uncontrolled - per recent FSBS reports. I have recommended for the patient to have follow up labs prior to the next office visit. The patient has been instructed to continue with current medications as previously directed, continue with regular FSBS monitoring to assure continued control of diabetes. Pt to call for any acute concerns, complaints, or if the blood glucose readings are starting to become less controlled. I have recommended for the patient to follow more strictly to the diabetic diet as discussed in clinic to allow for greater blood glucose control. Hyperlipidemia - pt has been counseled about appropriate diet, exercise , and need for low fat food choices. I have discussed the need for the patient to take medications as prescribed. If the patient has negative side effects from the medication, they are to CALL the office and not abruptly discontinue the medication without discussion with a practicioner in the office. We will check labs in 3-6 months for follow up on the patient's chronic medical problem and to assure normal liver response to medications. Hypertension - well controlled - continue with current medications, continue with no added salt diet. Pt has been encouraged to exercise daily. The pt has been advised to call the office if there are any acute concerns about change in blood pressure readings at home. 06/14/2012 Appointment: [facility] Follow up 06/14/2012 Patient Education: Patient Medication Summary Completed 06/14/2012 Patient Education: Hypertension Completed 06/14/2012 Visit Plan: Yifdb-pggya-umkr aches-suspect influenza- patient no indication for tamiflu due to length of symptoms--plan to stop the kelfex and start zpack due to persistent symptoms. Discussed natural and expected course of this diagnsis and to alert me if symptoms do not follow expected course, or if ANY worse. Patient verbalized understanding of plan. Phenergan with codeine given to patinet for cough to use at night time if needed. Diarrhea - recommended bland diet, low fat diet, start on probiotic, and rehydrate with gatorade-like product. Pt to call if feeling worse, diarrhea becomes bloody, or does not improve with above recommendations. Pt to call for acute worsening of stomach upset or stomach pain. RX for flagly if diarrhea does not improve over the weekend. HX of yeast infection with abx-RX for diflucan provided for patient. Diabetes Mellitus - Patient is not check her blood sugars- I have recommended for the patient to have follow up labs prior to the next office visit. The patient has been instructed to continue with current medications as previously directed, STARTwith regular FSBS monitoring to assure continued control of diabetes. Pt to call for any acute concerns, complaints, or if the blood glucose readings are starting to become less controlled. 05/21/2012 Appointment: Talya Hernandez [phone] New Patient 05/21/2012 Patient Education: Patient Medication Summary Completed 05/21/2012 Referral: Hernandez Dennis WPtel: Referral Appointment Requested Instructions Comment Start taking vitamin B12 liquid and folic acid supplements . Diabetes Mellitus - controlled - per recent FSBS reports. I have recommended for the patient to have follow up labs prior to the next office visit. The patient has been instructed to continue with current medications as previously directed, continue with regular FSBS monitoring to assure continued control of diabetes. Pt to call for any acute concerns, complaints, or if the blood glucose readings are starting to become less controlled. HTN - blood pressure elevated today in clinic. Pt to continue with current treatment - her blood pressure readings at home are normal. Overweight - improving with dietary control and post-gastric bypass surgery.. Hypothyroidism - pt with chronic hypothyroidism, continue with current medication, will monitor pt to signs or symptoms of lack of adequate supplementation. Pt is to continue with current dose of medication unless directed otherwise. Check labs at regular intervals wither q 3 months or q 6 months based on previous levels of control. Pt has been advised to increase her lantus to 35 units and keep on her metformin ER as she is currently taking Pt is to try percocet for her shoulder pain. . Diabetes Mellitus - Uncontrolled - per recent FSBS reports. I have recommended for the patient to have follow up labs prior to the next office visit. The patient has been instructed to continue with current medications as previously directed, continue with regular FSBS monitoring to assure continued control of diabetes. Pt to call for any acute concerns, complaints, or if the blood glucose readings are starting to become less controlled. I have recommended for the patient to follow more strictly to the diabetic diet as discussed in clinic to allow for greater blood glucose control.Pt has been advised to increase her lantus to 35 units and keep on her metformin ER as she is currently taking Uncontrolled shoulder pain - Pt is to try percocet for her shoulder pain. Insomnia due to uncontrolled pain - I have advised Kylee that we need to try to control her pain, if the insomnia is still a problem despite control of her pain, then we will look into other treatment options. Stop victoza - start Xultophy (it is a long acting insulin and victoza together) Check your blood sugars daily - start xultophy at 16 units a day - if blood sugars are still high in 4 days then increase by 2 units. Bring blood sugar logs by in 2 weeks. Repeat CBC in 1 month to monitor white count and hgb Repeat TSH, Free T4, CMP, and Hgb A1C in 3 months Come in for a follow up appointment in 3 months. Flonase over the counter for allergies/pressure in your ears. Let me know with any questions or concerns. Diabetes Mellitus - I have recommended for the patient to have follow up labs prior to the next office visit. The patient has been instructed to continue with current medications as previously directed, continue with regular FSBS monitoring to assure continued control of diabetes. Pt to call for any acute concerns, complaints, or if the blood glucose readings are starting to become less controlled. I have recommended for the patient to follow more strictly to the diabetic diet as discussed in clinic to allow for greater blood glucose control. Hypothyroidism - pt with chronic hypothyroidism, continue with current medication, will monitor pt to signs or symptoms of lack of adequate supplementation. Pt is to continue with current dose of medication unless directed otherwise. Check labs at regular intervals wither q 3 months or q 6 months based on previous levels of control. Allergies - chronic - recommended pt to use allergy medication as prescribed. Pt has been counseled as to the appropriate use of the medication. Pt to call if allergy symptoms are not controlled with the medication. If using nasal spray, instructions as follows: Nasal spray- use twice daily, one spray per nostril twice daily, after 30 minutes, rinse out nose with saline spray.. Use opposite hand per nostril to spray in the nasal steroid allergy spray. . Abdominal pain - UA negative. Check labs today. CT abdomen scheduled for tomorrow AM. RX for antibiotic sent to pt's pharmacy - pt advised to avoid seeds, nuts, popcorn, or any other food which has been proven to upset the pt's stomach. Patient is currently scheduled for a routine colonoscopy with Dr. Thomason on of this week. States she is supposed to start the prep tomorrow at 5 pm. Recommend pt wait to start prep until the results of the CT tomorrow. . Well Adult - pt was counseled about diet, exercise, and encouraged to follow a heart healthy diet and increase activity level. The patient was instructed to RTC yearly for well adult exams and PRN for acute illnesses. The pt was also instructed to have yearly labs for check of cholesterol, thyroid, chem panel, CBC, and renal functioning. NAPROXEN 500MG TWICE DAILY WITH FOOD FOR ARM PAIN. MRI OF SHOULDER LANTUS 5 UNITS NIGHTLY X 1 WEEK THEN INCREASE TO 10 UNITS NIGHTLY. Shoulder pain - recommended the following: NAPROXEN 500MG TWICE DAILY WITH FOOD FOR ARM PAIN. MRI OF SHOULDER Diabetes Mellitus - Uncontrolled - per recent FSBS reports. I have recommended for the patient to have follow up labs prior to the next office visit. The patient has been instructed to continue with current medications as previously directed, continue with regular FSBS monitoring to assure continued control of diabetes. Pt to call for any acute concerns, complaints, or if the blood glucose readings are starting to become less controlled. I have recommended for the patient to follow more strictly to the diabetic diet as discussed in clinic to allow for greater blood glucose control. LANTUS 5 UNITS NIGHTLY X 1 WEEK THEN INCREASE TO 10 UNITS NIGHTLY HOLD VIMOVO X 2 WEEKS DEXILANT 1 TAB DAILY-SAMPLES CHECK LABS CHEST XRAY MONITOR BLOOD PRESSURE . Cough-get chest xray-start dexilant daily HTN-blood pressures normal but patient extremely fatigued-monitor blood pressures at home to ensure its not dropping too low Hypothyroidism-check labs Esophageal Reflux - the patient has been counseled against excessive intake of caffeine, spicy foods, peppermint, and cinnamon - all of which can exacerbate esophageal reflux. The patient is to take medications as prescribed and call the office if the symptoms are not improving. KENALOG INJECTION TODAY IN THE OFFICE START PREDNISONE TOMORROW WATCH BLOOD SUGARS CLOSELY CALL THURSDAY IF NOT BETTER AND WE WILL SWITCH YOUR ANTIBIOTICS-CONTINUE THE ZITHROMAX/CEFDINIR FOR NOW-WILL PLAN TO SWITCH TO LEVAQUIN IF SYMPTOMS DO NOT IMPROVE CONTINUE SYMBICORT . Bronchitis - acute case of bronchitis identified. Pt has been given antibiotics, breathing treatments as appropriate, and pt has been instructed to call if symptoms are not improved, or if symptoms acutely worsen. Steroid shot today in the office Stop Cipro benadryl 25mg every 6 hours x 48 hours and pepcid 20mg two times per day x 48 hours Start Zyrtec once per day Start prednisone taper pack If symptoms worsen or you feel short of breath or like your throat or mouth is swelling, GO TO THE EMERGENCY ROOM IMMEDIATELY . Allergic Reaction/Hives - discussed diagnosis with patient, need to avoid allergen, and when/if the patient should go to the emergency room. Pt was instructed to take benadryl 25mg q 6 hours x 48 hours, and pepcid 20mg bid x 48 hours, pt also given RX for prednisone taper. . Diabetes Mellitus - Uncontrolled - per recent FSBS reports. I have recommended for the patient to have follow up labs prior to the next office visit. The patient has been instructed to continue with current medications as previously directed, continue with regular FSBS monitoring to assure continued control of diabetes. Pt to call for any acute concerns, complaints, or if the blood glucose readings are starting to become less controlled. I have recommended for the patient to follow more strictly to the diabetic diet as discussed in clinic to allow for greater blood glucose control. Hyperlipidemia - pt has been counseled about appropriate diet, exercise, and need for low fat food choices. I have discussed the need for the patient to take medications as prescribed. If the patient has negative side effects from the medication, they are to CALL the office and not abruptly discontinue the medication without discussion with a practitioner in the office. We will check labs in 3-6 months for follow up on the patient's chronic medical problem and to assure normal liver response to medications. Bloating/diarrhea - rx for questran. Hypertension - uncontrolled - the patient's medications have been modified as documented in the visit note. The patient has been counseled to cut back on salt in diet for a no added salt diet, low fat diet, start an exercise program with low weight bearing exercises and higher aerobic activity for heart health. The patient is to check blood pressure readings as an outpatient and either fax , call, or email the readings to the office next week for practitioner to review. The pt is to call for acute concerns. decrease dose of celexa 40mg to 1/2 a pill daily - once the current supply is exhausted, there is a script for 20mg celexa at the pharmacy stop the lantus . Diabetes Mellitus - controlled - per recent FSBS reports. I have recommended for the patient to have follow up labs prior to the next office visit. The patient has been instructed to continue with current medications as previously directed, continue with regular FSBS monitoring to assure continued control of diabetes. Pt to call for any acute concerns, complaints, or if the blood glucose readings are starting to become less controlled.[facility] sample - [id number] exp 02/2016 novonordisk Hypertension - well controlled - continue with current medications, continue with no added salt diet. Pt has been encouraged to exercise daily. The pt has been advised to call the office if there are any acute concerns about change in blood pressure readings at home. Add fish oil 1000mg po twice daily Increase metformin to 1000mg twice daily. . Diabetes Mellitus - Uncontrolled - per recent FSBS reports. I have recommended for the patient to have follow up labs prior to the next office visit. The patient has been instructed to continue with current medications as previously directed, continue with regular FSBS monitoring to assure continued control of diabetes. Pt to call for any acute concerns, complaints, or if the blood glucose readings are starting to become less controlled. I have recommended for the patient to follow more strictly to the diabetic diet as discussed in clinic to allow for greater blood glucose control. Hyperlipidemia - pt has been counseled about appropriate diet, exercise, and need for low fat food choices. I have discussed the need for the patient to take medications as prescribed. If the patient has negative side effects from the medication, they are to CALL the office and not abruptly discontinue the medication without discussion with a practicioner in the office. We will check labs in 3-6 months for follow up on the patient's chronic medical problem and to assure normal liver response to medications. Hypertension - well controlled - continue with current medications, continue with no added salt diet. Pt has been encouraged to exercise daily. The pt has been advised to call the office if there are any acute concerns about change in blood pressure readings at home. . Diabetes Mellitus - Uncontrolled - per recent FSBS reports. I have recommended for the patient to have follow up labs prior to the next office visit. The patient has been instructed to continue with current medications as previously directed, continue with regular FSBS monitoring to assure continued control of diabetes. Pt to call for any acute concerns, complaints, or if the blood glucose readings are starting to become less controlled. I have recommended for the patient to follow more strictly to the diabetic diet as discussed in clinic to allow for greater blood glucose control. Pt is to have hgba1c checked MUKUND. Pt to continue with current dose of victoza. Pt to start on weight loss agenda - increase physical activity. Pt given goal of 10# weight loss in 3 months. I SENT ZITHROMAX TO [facility]-2 PILLS TODAY AND THEN 1 PILL DAILY UNTIL GONE. I ALSO SENT A PRESCRIPTION FOR DIFLUCAN FOR A YEAST INFECTION. Recommend PROBIOTIC twice daily-lactobacillus. START TODAY. [facility] [facility] IF THE DIARRHEA PERSISTS OR WORSENS, START FLAGYL 500MG THREE TIMES DAILY-I SENT IT TO [facility]. [facility] Okay to take 5- 10ml every 6 hours as needed for cough. . Qtdjx-kvgcd-csqe aches-suspect influenza-patient no indication for tamiflu due to length of symptoms--plan to stop the kelfex and start zpack due to persistent symptoms. Discussed natural and expected course of this diagnsis and to alert me if symptoms do not follow expected course, or if ANY worse. Patient verbalized understanding of plan. Phenergan with codeine given to patinet for cough to use at night time if needed. Diarrhea - recommended bland diet, low fat diet, start on probiotic, and rehydrate with gatorade-like product. Pt to call if feeling worse, diarrhea becomes bloody, or does not improve with above recommendations. Pt to call for acute worsening of stomach upset or stomach pain. RX for flagly if diarrhea does not improve over the weekend. HX of yeast infection with abx-RX for diflucan provided for patient. Diabetes Mellitus - Patient is not check her blood sugars- I have recommended for the patient to have follow up labs prior to the next office visit. The patient has been instructed to continue with current medications as previously directed, STARTwith regular FSBS monitoring to assure continued control of diabetes. Pt to call for any acute concerns, complaints, or if the blood glucose readings are starting to become less controlled. pt to stop cardizem, stop diovan, stop current toprol pt to start on 1/2 pill of the metoprolol tartate twice daily x 1 week, then increase to a full pill twice daily if blood pressure is at or above 140 for top number or 90 for bottom number on blood pressure check. pt to decrease lantus to 10 units daily stop metformin . Hypertension - well controlled - continue with current medications, continue with no added salt diet. Pt has been encouraged to exercise daily. The pt has been advised to call the office if there are any acute concerns about change in blood pressure readings at home. pt to stop cardizem, stop diovan, stop current toprol pt to start on 1/2 pill of the metoprolol tartate twice daily x 1 week, then increase to a full pill twice daily if blood pressure is at or above 140 for top number or 90 for bottom number on blood pressure check. Diabetes Mellitus - controlled - per recent FSBS reports. I have recommended for the patient to have follow up labs prior to the next office visit. The patient has been instructed to continue with current medications as previously directed, continue with regular FSBS monitoring to assure continued control of diabetes. Pt to call for any acute concerns, complaints, or if the blood glucose readings are starting to become less controlled. pt to decrease lantus to 10 units daily stop metformin . Diabetes Mellitus - Uncontrolled - per recent FSBS reports. I have recommended for the patient to have follow up labs prior to the next office visit. The patient has been instructed to continue with current medications as previously directed, continue with regular FSBS monitoring to assure continued control of diabetes. Pt to call for any acute concerns, complaints, or if the blood glucose readings are starting to become less controlled. I have recommended for the patient to follow more strictly to the diabetic diet as discussed in clinic to allow for greater blood glucose control. Trulicity started - victoza stopped Plan: (70109) FLU VAC NO PRSV 4 SHAKILA 3 YRS+ INCREASE LANTUS TO 45 UNITS DAILY FOLLOW UP WITH DR THOMASON FOR COLONOSCOPY . Diabetes Mellitus - Uncontrolled - per recent FSBS reports. I have recommended for the patient to have follow up labs prior to the next office visit. The patient has been instructed to continue with current medications as previously directed, continue with regular FSBS monitoring to assure continued control of diabetes. Pt to call for any acute concerns, complaints, or if the blood glucose readings are starting to become less controlled. I have recommended for the patient to follow more strictly to the diabetic diet as discussed in clinic to allow for greater blood glucose control. Chronic diarrhea-RX for bentyl-repeat colonoscopy Hypertension - well controlled - continue with current medications, continue with no added salt diet. Pt has been encouraged to exercise daily. The pt has been advised to call the office if there are any acute concerns about change in blood pressure readings at home. pt to start on victoza 1.2 mg x 2 days, then increase to 1.8 mg daily x 1 week, then increase to one dose of 1.2 and 1.8 daily. . Diabetes Mellitus - Uncontrolled - per recent FSBS reports. I have recommended for the patient to have follow up labs prior to the next office visit. The patient has been instructed to continue with current medications as previously directed, continue with regular FSBS monitoring to assure continued control of diabetes. Pt to call for any acute concerns, complaints, or if the blood glucose readings are starting to become less controlled. I have recommended for the patient to follow more strictly to the diabetic diet as discussed in clinic to allow for greater blood glucose control. Hyperlipidemia - pt has been counseled about appropriate diet, exercise, and need for low fat food choices. I have discussed the need for the patient to take medications as prescribed. If the patient has negative side effects from the medication, they are to CALL the office and not abruptly discontinue the medication without discussion with a practicioner in the office. We will check labs in 3-6 months for follow up on the patient's chronic medical problem and to assure normal liver response to medications. CHECK CHEM PANEL METFORMIN TO 500MG DAILY INCREASE PO FLUIDS . Thyroid nodules-nodule on left lobe has increased in size-biopsy scheduled for Decrease renal function-secondary to dehydration-repeat labs-maintain adequate oral intake-follow up with sales and marketing professional as scheduled DM-hgb a1c improved-continue with same medications CLEAR LIQUID DIET-ADVANCE TO BLAND TOLERATED PROBIOTIC TWICE DAILY LABS TODAY NEXIUM SAMPLES-TAKE TWICE DAILY . Gastroenteritis - discussed need to stay away from milk products while acutely ill with diarrhea and nausea and emesis as it may worsen the symptoms. Liquids initially until the nausea improves, then recommend to advance to bland diet for 1 day, then advance as tolerated. Call if symptoms not improved. HOLD LIVALO AND FISH OIL X 1 WEEK. THREE TABLETS IN THE MORNING OF THE PREDNISONE X 2 MORE DAYS RX FOR PHENERGAN WITH CODEINE.. Bronchitis - acute case of bronchitis, pt is to finish her antibiotics, steroids, and she has been instructed to call if symptoms are not improved, or if symptoms acutely worsen. Cough- phenergan with codeine rx called to pharmacy. Myalgia - may be due to cholesterol medications - pt is to hold her livalo and fish oil x 1 week, call if myalgias do not improve, or, after restart of medication if they come back worse than before her acute bronchitis. . Diabetes Mellitus - I have recommended for the patient to have follow up labs prior to the next office visit. The patient has been instructed to continue with current medications as previously directed, continue with regular FSBS monitoring to assure continued control of diabetes. Pt to call for any acute concerns, complaints, or if the blood glucose readings are starting to become less controlled. I have recommended for the patient to follow more strictly to the diabetic diet as discussed in clinic to allow for greater blood glucose control. Hypothyroidism - pt with chronic hypothyroidism, continue with current medication, will monitor pt to signs or symptoms of lack of adequate supplementation. Pt is to continue with current dose of medication unless directed otherwise. Check labs at regular intervals wither q 3 months or q 6 months based on previous levels of control. INCREASE LANTUS TO 15 UNITS AT BEDTIME CALL OR FAX BLOOD SUGAR LOG IN 2 WEEKS Monitor you blood sugars as directed at home, record, and bring to the office at your next appointment, or as directed. Monitor your blood sugars at different times throughout the day-fasting, 30 minutes before a meal, 2 hours after a meal, or bedtime are good times to monitor your blood sugars. . Diabetes Mellitus - Uncontrolled - per recent FSBS reports. I have recommended for the patient to have follow up labs prior to the next office visit. The patient has been instructed to continue with current medications as previously directed, continue with regular FSBS monitoring to assure continued control of diabetes. Pt to call for any acute concerns, complaints, or if the blood glucose readings are starting to become less controlled. I have recommended for the patient to follow more strictly to the diabetic diet as discussed in clinic to allow for greater blood glucose control. Diabetes diet discussed in detail with patient today. decrease citalopram to 1/2 tab daily x 1 week, then stop it and start wellbutrin 150mg daily in the morning. return to clinic in 3 months to monitor. Stop trulicity, start victoza . Diabetes Mellitus - Uncontrolled - I have recommended for the patient to have follow up labs prior to the next office visit. The patient has been instructed to continue with current medications as previously directed, continue with regular FSBS monitoring to assure continued control of diabetes. Pt to call for any acute concerns, complaints, or if the blood glucose readings are starting to become less controlled. I have recommended for the patient to follow more strictly to the diabetic diet as discussed in clinic to allow for greater blood glucose control. Anxiety - the patient has uncontrolled anxiety and will benefit from an SSRI on a daily basis to attempt control of the symptoms of anxiety (tachycardia, overwhelming sensations, stress, insomnia, etc). Pt is aware of the risks and benefits of treatment with the above medications. Depression - uncontrolled - Pt has been counseled about the diagnosis of depression, the potential causes, and risks associated with the diagnosis. The pt denies suicidal ideation, or plans. The patient has been counseled about treatment options, and understands the risks associated with treatment of depression, as well as the risks associated with NOT treating the depression. I believe the pt will benefit from medical intervention and an antidepressant has been appropriately prescribed for this patient. decrease metformin to 1000mg one time daily no change to victoza increase lantus to 20 units daily. check blood sugar when you wake up clammy/hot.. Diabetes Mellitus - Uncontrolled - per recent FSBS reports. I have recommended for the patient to have follow up labs prior to the next office visit. The patient has been instructed to continue with current medications as previously directed, continue with regular FSBS monitoring to assure continued control of diabetes. Pt to call for any acute concerns, complaints, or if the blood glucose readings are starting to become less controlled. I have recommended for the patient to follow more strictly to the diabetic diet as discussed in clinic to allow for greater blood glucose control. Due to night-time symptoms of hypoglycemia - I have advised the pt to make the following changes: decrease metformin to 1000mg one time daily no change to victoza increase lantus to 20 units daily. Myalgia/fatigue - pt is to hold her livalo and we will re-eval her symptoms in one month at office visit - continue with dosing of medications for pneumonia as per urgent care. Increase lantus to 40 units daily. get labs end of november (wk of december 19) appt beginning of december. . Diabetes Mellitus - Uncontrolled - per recent FSBS reports. I have recommended for the patient to have follow up labs prior to the next office visit. The patient has been instructed to continue with current medications as previously directed, continue with regular FSBS monitoring to assure continued control of diabetes. Pt to call for any acute concerns, complaints, or if the blood glucose readings are starting to become less controlled. I have recommended for the patient to follow more strictly to the diabetic diet as discussed in clinic to allow for greater blood glucose control. Pt has had a 2 point drop in her Hgba1c, and this is equal to over 100mg/dl decrease in her overall average blood glucose level. Nevertheless, she needs to have further improvement in her DM control, therefore she was instructed to do the following: Increase lantus to 40 units daily. Hypertension - well controlled - continue with current medications, continue with no added salt diet. Pt has been encouraged to exercise daily. The pt has been advised to call the office if there are any acute concerns about change in blood pressure readings at home. Shoulder pain - pt needs to see her surgeon about shoulder evaluation for persistent pain in her shoulder. Anxiety - pt states that she took a 1/2 of one of her mom's xanax because she was having trouble relaxing and getting to sleep and she felt wonderful the next day and finally had less shoulder discomfort because she was able to relax. . Sinusitis - Pt has acute infection - pain in face, maxillary region, Pt informed to use decongestant, RX given to patient, sinus rinses also recommended. Call if symptoms do not show improvement. Allergies - chronic - recommended pt to use allergy medication as prescribed. Pt has been counseled as to the appropriate use of the medication. Pt to call if allergy symptoms are not controlled with the medication. If using nasal spray, instructions as follows: Nasal spray- use twice daily, one spray per nostril twice daily, after 30 minutes, rinse out nose with saline spray.. Use opposite hand per nostril to spray in the nasal steroid allergy spray. Anxiety - the patient has uncontrolled anxiety and will benefit from an SSRI on a daily basis to attempt control of the symptoms of anxiety (tachycardia, overwhelming sensations, stress, insomnia, etc). Pt is aware of the risks and benefits of treatment with the above medications. Depression - uncontrolled - Pt has been counseled about the diagnosis of depression, the potential causes, and risks associated with the diagnosis. The pt denies suicidal ideation, or plans. The patient has been counseled about treatment options, and understands the risks associated with treatment of depression, as well as the risks associated with NOT treating the depression. I believe the pt will benefit from medical intervention and an antidepressant has been appropriately prescribed for this patient. left forearm pain - The pt is to use prn antiinflammatories to manage acute pain. The patient is to call the office if the pain is worsening or does not improve. Cryotherapy of skin lesions - three cryotherapy on each lesion, dressed with neosporin and monitor lesions. . Sinusitis - Pt has acute infection - pain in face, maxillary region, Pt informed to use decongestant, RX given to patient, sinus rinses also recommended. Call if symptoms do not show improvement. Allergies - chronic - recommended pt to use allergy medication as prescribed. Pt has been counseled as to the appropriate use of the medication. Pt to call if allergy symptoms are not controlled with the medication. If using nasal spray, instructions as follows: Nasal spray- use twice daily, one spray per nostril twice daily, after 30 minutes, rinse out nose with saline spray.. Use opposite hand per nostril to spray in the nasal steroid allergy spray. Anxiety - the patient has uncontrolled anxiety and will benefit from an SSRI on a daily basis to attempt control of the symptoms of anxiety (tachycardia, overwhelming sensations, stress, insomnia, etc). Pt is aware of the risks and benefits of treatment with the above medications. Depression - uncontrolled - Pt has been counseled about the diagnosis of depression, the potential causes, and risks associated with the diagnosis. The pt denies suicidal ideation, or plans. The patient has been counseled about treatment options, and understands the risks associated with treatment of depression, as well as the risks associated with NOT treating the depression. I believe the pt will benefit from medical intervention and an antidepressant has been appropriately prescribed for this patient. left forearm pain - The pt is to use prn antiinflammatories to manage acute pain. The patient is to call the office if the pain is worsening or does not improve. Cryotherapy of skin lesions - three cryotherapy on each lesion, dressed with neosporin and monitor lesions. . Hypertension - well controlled - continue with current medications, continue with no added salt diet. Pt has been encouraged to exercise daily. The pt has been advised to call the office if there are any acute concerns about change in blood pressure readings at home. Diabetes Mellitus - controlled - per recent FSBS reports. I have recommended for the patient to have follow up labs prior to the next office visit. The patient has been instructed to continue with current medications as previously directed, continue with regular FSBS monitoring to assure continued control of diabetes. Pt to call for any acute concerns, complaints, or if the blood glucose readings are starting to become less controlled. Dysphagia - supportive care - continue to monitor . Allergies - chronic - recommended pt to use allergy medication as prescribed. Pt has been counseled as to the appropriate use of the medication. Pt to call if allergy symptoms are not controlled with the medication. If using nasal spray, instructions as follows: Nasal spray- use twice daily, one spray per nostril twice daily, after 30 minutes, rinse out nose with saline spray.. Use opposite hand per nostril to spray in the nasal steroid allergy spray. URI - Pt advised to increase fluids, vitamin C. Discussed natural and expected course of this diagnosis and need to alert me if symptoms do not follow expected course, or if any worse. RX sent to patient's pharmacy. Plan: (G0202) SCREENINGMAMMOGRAPHYDIGITAL . Hypertension - uncontrolled - the patient's medications have been modified as documented in the visit note. The patient has been counseled to cut back on salt in diet for a no added salt diet, low fat diet, start an exercise program with low weight bearing exercises and higher aerobic activity for heart health. The patient is to check blood pressure readings as an outpatient and either fax , call, or email the readings to the office next week for practitioner to review. The pt is to call for acute concerns. Diabetes Mellitus - controlled - per recent FSBS reports. I have recommended for the patient to have follow up labs prior to the next office visit. The patient has been instructed to continue with current medications as previously directed, continue with regular FSBS monitoring to assure continued control of diabetes. Pt to call for any acute concerns, complaints, or if the blood glucose readings are starting to become less controlled. Neuropathy with pt status post gastric bypass - recommended a patient to have vitamin b12 and vitamin D level. . Hypertension - well controlled - continue with current medications, continue with no added salt diet. Pt has been encouraged to exercise daily. The pt has been advised to call the office if there are any acute concerns about change in blood pressure readings at home. Diabetes Mellitus - controlled - per recent FSBS reports. I have recommended for the patient to have follow up labs prior to the next office visit. The patient has been instructed to continue with current medications as previously directed, continue with regular FSBS monitoring to assure continued control of diabetes. Pt to call for any acute concerns, complaints, or if the blood glucose readings are starting to become less controlled. Right knee pain - rx for vimovo - pt to call if not improving.
[2018-03-09] MEDS ORDERED: LEVO88TA54 PO (06:29)
[2018-03-09] MEDS ORDERED: INSU3INS SC (06:29)
[2018-03-09] MEDS ORDERED: FLUO40CA PO (06:29)
[2018-03-09] MEDS ORDERED: METO-370 PO (06:29)
[2018-03-09] MEDS ORDERED: ATOR20TA66 PO (06:29)
[2018-03-09] MEDS ORDERED: HYDR25TA4 PO (06:29)
--- OUTSIDE RECORDS SUMMARY | 2018-03-09 06:32 | XMS REPORT | CCD ---
Author Author Talya Hernandez MD, 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 Unknown Has never used illegal drugs 05/21/2012 Allergies, Adverse Reactions, Alerts Substance Reaction Codes Entered Date Inactivated Date Status * NO KNOWN ENVIRONMENTAL ALLERGIES Unknown 05/21/2012 No Inactive Date Active * NO KNOWN FOOD ALLERGIES Unknown 05/21/2012 No Inactive Date Active ciprofloxacin hives RxNorm: 83188 11/22/2014 No Inactive Date Active PNEUMOCOCCAL VACCINE [...] Start Date Stop Date Status Fill Instructions amoxicillin 500 mg capsule RxNorm: 848016 1 Capsule(s) PO TID 02/22/2018 02/28/2018 Active Prozac 20 mg capsule RxNorm: 451583 1 Capsule(s) PO daily 02/2203/23/2018 Active Diflucan 150 mg tablet RxNorm: 319447 1 Tablet(s) PO daily 02/26/2018 Active Kenalog 40 mg/mL suspension for injection RxNorm: 1145339 Milliliter(s) Inj 02/22/2018 02/22/2018 Inactive levothyroxine 88 mcg tablet RxNorm: 430150 TAKE 1 TABLET BY MOUTH ONCE DAILY 02/15/2018 No Stop Date Active Cymbalta 60 mg capsule,delayed release RxNorm: 004593 TAKE 1 CAPSULE BY MOUTH ONCE DAILY 02/15/2018 No Stop Date Active Diflucan 150 mg tablet RxNorm: 539090 1 Tablet(s) PO daily No Stop Date Active Xultophy 100/3.6 100 unit-3.6 mg/mL (3 mL) subcutaneous insulin pen RxNorm: 6080588 30 Unit(s) SQ daily 01/07/20182017 Inactive Xultophy 100/3.6 100 unit-3.6 mg/mL (3 mL) subcutaneous insulin pen RxNorm: 7954039 22 Unit(s) SQ daily 12/03/20172017 Inactive Xultophy 100/3.6 100 unit-3.6 mg/mL (3 mL) subcutaneous insulin pen RxNorm: 8382873 20 Unit(s) SQ daily 11/27/20172017 Inactive Xultophy 100/3.6 100 unit-3.6 mg/mL (3 mL) subcutaneous insulin pen RxNorm: 1364435 20 Unit(s) SQ daily 11/27/20172017 Inactive Xultophy 100/3.6 100 unit-3.6 mg/mL (3 mL) subcutaneous insulin pen RxNorm: 3320026 16 Unit(s) SQ daily 10/26/20172017 Inactive Xultophy 100/3.6 100 unit-3.6 mg/mL (3 mL) subcutaneous insulin pen RxNorm: 4897319 16 Unit(s) SQ daily 10/26/20172017 Inactive potassium chloride ER 10 mEq tablet,extended release RxNorm: 928775 1 Tablet(s) PO TIW 10/21/2017 10/15/2018 Active Diflucan 150 mg tablet RxNorm: 819370 TAKE ONE TABLET BY MOUTH ONCE DAILY 10/21/2017 01/06/2018 Inactive Cymbalta 60 mg capsule,delayed release RxNorm: 780944 1 Capsule(s) PO daily 10/07/2017 02/03/2018 Inactive potassium chloride ER 10 mEq tablet,extended release RxNorm: 254520 TAKE ONE TABLET BY MOUTH TWICE A WEEK 10/07/2017 Inactive Lipitor 20 mg tablet RxNorm: 281329 TAKE ONE TABLET BY MOUTH ONCE DAILY IN THE EVENING 09/04/2017 No Stop Date Active metoprolol succinate ER 50 mg tablet,extended release 24 hr RxNorm: 326746 TAKE ONE TABLET BY MOUTH ONCE DAILY 09/04/2017 No Stop Date Active Victoza 3-To 0.6 mg/0.1 mL (18 mg/3 mL) subcutaneous pen injector RxNorm: 135370 Milligram(s) SQ 09/02/2017 05/24/2019 Active Diflucan 150 mg tablet RxNorm: 364625 TAKE ONE TABLET BY MOUTH ONCE DAILY 09/02/2017 10/20/2017 Inactive potassium chloride ER 10 mEq tablet,extended release RxNorm: 625722 TAKE ONE TABLET BY MOUTH TWICE A WEEK 08/10/2017 Inactive levothyroxine 88 mcg tablet RxNorm: 832318 TAKE ONE TABLET BY MOUTH ONCE DAILY 08/10/2017 02/14/2018 Inactive Diflucan 150 mg tablet RxNorm: 373950 1 Tablet(s) PO daily 07/20/2017 Inactive Diflucan 150 mg tablet RxNorm: 029778 1 Tablet(s) PO daily 07/09/2017 Inactive Cymbalta 60 mg capsule,delayed release RxNorm: 674831 1 Capsule(s) PO daily 07/10/2017 07/09/2017 Inactive Cymbalta 60 mg capsule,delayed release RxNorm: 006875 1 Capsule(s) PO daily 07/10/2017 10/06/2017 Inactive Diflucan 150 mg tablet RxNorm: 189173 1 Tablet(s) PO daily 07/14/2017 Inactive Wellbutrin XL 150 mg 24 hr tablet, extended release RxNorm: 639962 1 Tablet(s) PO daily 06/08/2017 07/09/2017 Inactive Victoza 3-To 0.6 mg/0.1 mL (18 mg/3 mL) subcutaneous pen injector RxNorm: 258798 Milligram(s) SQ 06/08/2017 09/01/2017 Inactive Initiate at 0.6 mg per day for one week then increase to 1.2 mg. Dispense qty sufficient hydrochlorothiazide 25 mg tablet RxNorm: 822853 TAKE ONE TABLET BY MOUTH ONCE DAILY 05/25/2017 No Stop Date Active citalopram 40 mg tablet RxNorm: 836539 TAKE ONE TABLET BY MOUTH ONCE DAILY 05/13/2017 07/09/2017 Inactive potassium chloride ER 10 mEq tablet,extended release RxNorm: 561447 TAKE ONE TABLET BY MOUTH TWICE A WEEK 03/25/2017 Inactive hydrochlorothiazide 25 mg tablet RxNorm: 934523 TAKE ONE TABLET BY MOUTH ONCE DAILY 02/23/2017 05/24/2017 Inactive levothyroxine 88 mcg tablet RxNorm: 740103 TAKE ONE TABLET BY MOUTH ONCE DAILY 01/28/2017 07/26/2017 Inactive Trulicity 1.5 mg/0.5 mL subcutaneous pen injector RxNorm: 9417836 INJECT ONE SYRINGE SUBCUTANEOUSLY ONCE A WEEK 01/27/2017 07/09/2017 Inactive Diflucan 150 mg tablet RxNorm: 724850 1 Tablet(s) PO daily 12/31/2016 Inactive Invokana 100 mg tablet RxNorm: 4619464 1 Tablet(s) PO daily 11/201602/03/2017 Inactive Invokana 100 mg tablet RxNorm: 5305581 1 Tablet(s) PO daily 11/201612/01/2016 Inactive potassium chloride ER 10 mEq tablet,extended release RxNorm: 718409 1 Tablet(s) PO BIW 11/17/2016 11/16/2016 Inactive metformin 500 mg tablet RxNorm: 160193 1 Tablet(s) PO BID 11/1712/01/2016 Inactive potassium chloride ER 10 mEq tablet,extended release RxNorm: 297358 1 Tablet(s) PO BIW 11/17/2016 11/16/2016 Inactive potassium chloride ER 10 mEq tablet,extended release RxNorm: 066258 1 Tablet(s) PO 2 times weekly 11/17/2016 10/06/2017 Inactive Diflucan 150 mg tablet RxNorm: 045260 1 Tablet(s) PO daily 09/18/2016 Inactive Diflucan 150 mg tablet RxNorm: 637898 1 Tablet(s) PO daily 09/23/2016 Inactive amoxicillin 500 mg tablet RxNorm: 000838 1 Tablet(s) PO BID 09/25/2016 Inactive metoprolol succinate ER 50 mg tablet,extended release 24 hr RxNorm: 030270 Tablet (s) TAKE ONE TABLET BY MOUTH ONCE DAILY 08/11/2016 08/05/2017 Inactive Lipitor 20 mg tablet RxNorm: 677844 1 Tablet(s) PO QPM 201609/03/2017 Inactive Questran Light 4 gram oral powder RxNorm: 1864209 1 PO TID 05/25/2017 Inactive Trulicity 1.5 mg/0.5 mL subcutaneous pen injector RxNorm: 9360080 0.5 Milliliter(s ) SQ QW 08/11/2016 01/07/2017 Inactive levothyroxine 88 mcg tablet RxNorm: 369819 TAKE ONE TABLET BY MOUTH ONCE DAILY 07/28/2016 01/23/2017 Inactive Trulicity 0.75 mg/0.5 mL subcutaneous pen injector RxNorm: 3096274 INJECT THREE- FOURTHS MG(S) SUBCUTANEOUSLY ONCE A WEEK 07/01/2016 08/10/2016 Inactive metoprolol succinate ER 50 mg tablet,extended release 24 hr RxNorm: 541805 TAKE ONE TABLET BY MOUTH ONCE DAILY 06/11/2016 08/09/2016 Inactive citalopram 40 mg tablet RxNorm: 225905 TAKE ONE TABLET BY MOUTH ONCE DAILY 04/14/2016 05/12/2017 Inactive Diflucan 150 mg tablet RxNorm: 636536 1 Tablet(s) PO daily 01/24/2016 Inactive hydrochlorothiazide 25 mg tablet RxNorm: 998974 Tablet(s) 1 TABLET(S) PO DAILY 01/25/2016 01/18/2017 Inactive Diflucan 150 mg tablet RxNorm: 236814 1 Tablet(s) PO daily 01/31/2016 Inactive Zithromax Z-To 250 mg tablet RxNorm: 680637 1 Tablet(s) PO daily 01/24/2016 01/23/2016 Inactive zpack Zithromax Z-To 250 mg tablet RxNorm: 382600 1 Tablet(s) PO daily 01/24/2016 01/28/2016 Inactive zpack prednisone 10 mg tablets in a dose pack RxNorm: 345461 1 Tablet(s) PO as directed 01/24/2016 01/31/2016 Inactive 6-5-4-3-2-1 Kenalog 40 mg/mL suspension for injection RxNorm: 9846392 Milliliter(s) Inj 01/22/2016 01/22/2016 Inactive prednisone 20 mg tablet RxNorm: 320518 2 Tablet(s) PO daily 01/24/2016 Inactive start tomorrow Trulicity 0.75 mg/0.5 mL subcutaneous pen injector RxNorm: 4969195 0.75 Milligram( s) SQ QW 01/18/2016 06/30/2016 Inactive levothyroxine 88 mcg tablet RxNorm: 355039 TAKE ONE TABLET BY MOUTH ONCE DAILY 01/17/2016 07/14/2016 Inactive Trulicity 0.75 mg/0.5 mL subcutaneous pen injector RxNorm: 9856304 0.75 Milligram( s) SQ QW 12/03/2015 01/01/2016 Inactive Vimovo 500 mg-20 mg tablet,immediate and delay release RxNorm: 439655 1 Tablet(s) PO BID 12/03/2015 03/30/2016 Inactive metoprolol succinate ER 50 mg tablet,extended release 24 hr RxNorm: 289050 1 Tablet(s) PO daily 10/23/2015 05/19/2016 Inactive Trulicity 0.75 mg/0.5 mL subcutaneous pen injector RxNorm: 1138177 0.75 Milligram( s) SQ QW 09/17/2015 10/16/2015 Inactive Victoza 3-To 0.6 mg/0.1 mL (18 mg/3 mL) subcutaneous pen injector RxNorm: 280597 1.8 MILLIGRAM(S) SQ DAILY 07/16/201509/15 Inactive this is just a correction of her current dosing - she does not need a refill levothyroxine 88 mcg tablet RxNorm: 401033 1 TABLET(S) PO DAILY 07/16/2015 01/11/2016 Inactive metoprolol succinate ER 50 mg tablet,extended release 24 hr RxNorm: 709007 1 Tablet(s) PO daily 05/29/2015 10/22/2015 Inactive levothyroxine 88 mcg tablet RxNorm: 856249 1 Tablet(s) PO daily 04/17/2015 07/15/2015 Inactive levothyroxine 88 mcg tablet RxNorm: 655512 1 Tablet(s) PO daily 04/17/2015 04/16/2015 Inactive citalopram 40 mg tablet RxNorm: 878031 1 Tablet(s) PO daily 04/13/2016 Inactive metoprolol tartrate 25 mg tablet RxNorm: 567276 1 Tablet(s) BID 01/17/2015 05/28/2015 Inactive hydrochlorothiazide 25 mg tablet RxNorm: 335255 1 TABLET(S) PO DAILY 01/01/2015 12/26/2015 Inactive Kenalog 40 mg/mL suspension for injection RxNorm: 5932177 Milliliter(s) Inj 11/23/2014 11/23/2014 Inactive Kenalog 40 mg/mL suspension for injection RxNorm: 0063278 60 Milliliter(s) Inj 11/22/2014 11/22/2014 Inactive Zyrtec 10 mg tablet RxNorm: 1255253 1 Tablet(s) PO daily 11/2212/21/2014 Inactive prednisone 10 mg tablets in a dose pack RxNorm: 916112 1 Tablet(s) PO as directed 11/22/2014 05/28/2015 Inactive 6-5-4-3-2-1 Flagyl 500 mg tablet RxNorm: 050602 1 Tablet(s) PO TID 201411/20/2014 Inactive metoprolol tartrate 25 mg tablet RxNorm: 118613 1 Tablet(s) PO BID 09/06/2014 08/10/2016 Inactive metoprolol tartrate 25 mg tablet RxNorm: 015835 1 TABLET(S) PO BID PT TO START WITH 1/2 PILL TWICE DAILY X 1 WEEK, THEN INCREASE TO 1 PILL BID THEREAFTER 09/06/2014 01/16/2015 Inactive citalopram 20 mg tablet RxNorm: 133372 1 Tablet(s) PO daily 02/201503/13/2015 Inactive Victoza 3-To 0.6 mg/0.1 mL (18 mg/3 mL) subcutaneous pen injector RxNorm: 965615 1.8 MILLIGRAM(S) SQ DAILY 09/04/201405/31 Inactive this is just a correction of her current dosing - she does not need a refill metoprolol tartrate 25 mg tablet RxNorm: 462435 1 Tablet(s) PO BID pt to start with 1/2 pill twice daily x 1 week, then increase to 1 pill bid thereafter 08/04/2014 09/02/2014 Inactive Lantus Solostar 100 unit/mL (3 mL) subcutaneous insulin pen RxNorm: 210500 Unit( s) INJECT 10 UNITS SUBCUTANEOUSLY DAILY. DOCTOR WILL ADJUST MEDICATION BASED ON BLOOD GLUCOSE LEVELS 08/04/20142014 Inactive hydrochlorothiazide 25 mg tablet RxNorm: 158141 1 TABLET(S) PO DAILY 07/12/2014 01/24/2016 Inactive hydrochlorothiazide 25 mg tablet RxNorm: 249796 1 Tablet(s) PO daily 07/12/2014 12/31/2014 Inactive acyclovir 400 mg tablet RxNorm: 270936 1 Tablet(s) PO QID 05/0905/08/2014 Inactive acyclovir 400 mg tablet RxNorm: 994744 1 Tablet(s) PO QID 05/0905/15/2014 Inactive alprazolam 0.25 mg tablet RxNorm: 883987 TAKE 1 TABLET BY MOUTH TWICE DAILY NEEDED FOR ANXIETY 04/24/2014 05/23/2014 Inactive (Response to an electronic controlled substance refill request - RxReferenceNumber: [id number]|0|1) metoprolol succinate ER 100 mg tablet,extended release 24 hr RxNorm: 308111 1 TABLET(S) PO DAILY TAKE 1 TABLET BY MOUTH DAILY 04/24/2014 08/03/2014 Inactive Cardizem LA 360 mg tablet,extended release RxNorm: 129752 1 TABLET(S) PO DAILY TAKE 1 TABLET BY MOUTH DAILY 04/24/2014 Inactive metformin ER 500 mg 24 hr tablet,extended release RxNorm: 738011 1 Tablet(s) PO daily 04/11/2014 08/03/2014 Inactive Lantus Solostar 100 unit/mL (3 mL) subcutaneous insulin pen RxNorm: 022932 INJECT 40 UNITS SUBCUTANEOUSLY DAILY. DOCTOR WILL ADJUST MEDICATION BASED ON BLOOD GLUCOSE LEVELS 03/20/20142014 Inactive Bentyl 10 mg capsule RxNorm: 861219 1 Capsule(s) PO TID PRN 02/201405/28/2015 Inactive potassium chloride ER 10 mEq tablet,extended release RxNorm: 334916 1 Tablet(s) PO daily 01/05/2014 01/11/2014 Inactive Lantus Solostar 100 unit/mL (3 mL) subcutaneous insulin pen RxNorm: 355144 45 Unit(s) SQ daily doctor to adjust medications based on blood glucose results 01/05/2014 12/02/2015 Inactive Diovan 320 mg tablet RxNorm: 131106 1 Tablet(s) PO daily 201308/03/2014 Inactive metformin ER 1,000 mg tablet,extended release 24hr RxNorm: 114236 1 Tablet(s) PO daily 10/26/2013 04/10/2014 Inactive Lantus Solostar 100 unit/mL (3 mL) subcutaneous insulin pen RxNorm: 907042 40 Unit(s) SQ daily doctor to adjust medications based on blood glucose results 10/10/2013 01/04/2014 Inactive alprazolam 0.25 mg tablet RxNorm: 134990 1 Tablet(s) PO BID 04/24/2014 Inactive Percocet 5 mg-325 mg tablet RxNorm: 7041122 1-2 Tablet(s) PO Q6 PRN 10/03/2013 05/28/2015 Inactive Celexa 40 mg tablet RxNorm: 202069 Tablet(s) PO TAKE 1 TABLET BY MOUTH DAILY 09/28/2013 09/03/2014 Inactive hydrochlorothiazide 25 mg tablet RxNorm: 296173 1 Tablet(s) PO daily 09/22/2013 06/18/2014 Inactive Lantus Solostar 100 unit/mL (3 mL) subcutaneous insulin pen RxNorm: 538911 35 Unit(s) SQ daily doctor to adjust medications based on blood glucose results 08/02/2013 10/09/2013 Inactive Cardizem LA 360 mg tablet,extended release RxNorm: 778184 1 Tablet(s) PO daily TAKE 1 TABLET BY MOUTH DAILY 07/18/2013 Inactive Cardizem LA 360 mg tablet,extended release RxNorm: 065501 Tablet(s) PO TAKE 1 TABLET BY MOUTH DAILY 07/18/20132014 Inactive metoprolol succinate ER 100 mg tablet,extended release 24 hr RxNorm: 947448 1 Tablet(s) PO daily TAKE 1 TABLET BY MOUTH DAILY 07/18/2013 04/13/2014 Inactive metoprolol succinate ER 100 mg tablet,extended release 24 hr RxNorm: 748077 Tablet (s) PO TAKE 1 TABLET BY MOUTH DAILY 07/18/2013 08/03/2014 Inactive Lantus Solostar 100 unit/mL (3 mL) subcutaneous insulin pen RxNorm: 432844 30 Unit(s) SQ daily doctor to adjust medications based on blood glucose results 07/04/2013 08/01/2013 Inactive Victoza 3-To 0.6 mg/0.1 mL (18 mg/3 mL) subcutaneous pen injector RxNorm: 877080 1.8 Milligram(s) SQ daily 06/30/201303/26 Inactive this is just a correction of her current dosing - she does not need a refill metformin ER 1,000 mg tablet,extended release 24hr RxNorm: 169744 1 Tablet(s) PO daily 06/30/2013 10/25/2013 Inactive Lantus Solostar 100 unit/mL (3 mL) subcutaneous insulin pen RxNorm: 605417 20 Unit(s) SQ daily doctor to adjust medications based on blood glucose results 06/30/2013 07/03/2013 Inactive Lantus Solostar 100 unit/mL (3 mL) subcutaneous insulin pen RxNorm: 753213 15 Unit(s) SQ daily doctor to adjust medications based on blood glucose results 06/23/2013 06/29/2013 Inactive Victoza 3-To 0.6 mg/0.1 mL (18 mg/3 mL) subcutaneous pen injector RxNorm: 641370 3mg Milliliter(s) SQ daily 90 days worth 06/20/2013 06/29/2013 Inactive hydrochlorothiazide 25 mg tablet RxNorm: 233765 1 Tablet(s) PO daily 06/13/2013 09/21/2013 Inactive ketorolac 60 mg/2 mL intramuscular solution RxNorm: 181170 2 Milliliter(s) IM 06/06/2013 06/06/2013 Inactive Lantus Solostar 100 unit/mL (3 mL) subcutaneous insulin pen RxNorm: 429285 10 Unit(s) SQ daily doctor to adjust medications based on blood glucose results 06/06/2013 06/22/2013 Inactive naproxen 500 mg tablet RxNorm: 360072 1 Tablet(s) PO BID 201308/04/2013 Inactive hydrochlorothiazide 25 mg tablet RxNorm: 753723 1 Tablet(s) PO daily 06/06/2013 06/12/2013 Inactive Victoza 3-To 0.6 mg/0.1 mL (18 mg/3 mL) subcutaneous pen injector RxNorm: 860412 3mg Milliliter(s) SQ daily 90 days worth 05/19/2013 06/19/2013 Inactive Diflucan 150 mg tablet RxNorm: 061976 1 Tablet(s) PO daily 05/12/2013 Inactive Diflucan 150 mg tablet RxNorm: 546330 1 Tablet(s) PO daily 05/19/2013 Inactive Cardizem LA 360 mg tablet,extended release RxNorm: 057092 Tablet(s) PO TAKE 1 TABLET BY MOUTH DAILY 04/22/20132013 Inactive metoprolol succinate ER 100 mg tablet,extended release 24 hr RxNorm: 105494 Tablet (s) PO TAKE 1 TABLET BY MOUTH DAILY 04/14/2013 07/17/2013 Inactive Diflucan 150 mg tablet RxNorm: 183428 1 Tablet(s) PO daily 03/28/2013 Inactive Diflucan 150 mg tablet RxNorm: 189842 1 Tablet(s) PO daily 03/21/2013 Inactive Diovan 320 mg tablet RxNorm: 350410 1 Tablet(s) PO daily 201212/09/2013 Inactive cefdinir 300 mg capsule RxNorm: 001309 1 Capsule(s) PO BID 02/25/2013 Inactive Phenergan with Codeine Syrup RxNorm: 5-10 Milliliter(s) PO Q6 PRN USE PRN FOR COUGH 02/21/2013 03/20/2013 Inactive 8 OUNCES Victoza 3-To 0.6 mg/0.1 mL (18 mg/3 mL) subcutaneous pen injector RxNorm: 453070 3mg Milliliter(s) SQ daily 90 days worth 12/09/2012 03/08/2013 Inactive scopolamine 1.5 mg transdermal 72 hour patch RxNorm: 599196 1 Patch TD Q72H 10/26/2012 01/04/2014 Inactive scopolamine 1.5 mg 72 hr Transderm Patch RxNorm: 816506 1 Patch TD Q72H 10/26/2012 10/25/2012 Inactive metformin ER 1,000 mg tablet,extended release 24hr RxNorm: 597867 1 Tablet(s) PO BID 10/11/2012 06/29/2013 Inactive Victoza 3-To 0.6 mg/0.1 mL (18 mg/3 mL) Sub-Q Pen Injector RxNorm: 344180 1.8 Milliliter(s) SQ daily 1.8 mg dose daily 09/23/2012 12/08/2012 Inactive Victoza 3-To 0.6 mg/0.1 mL (18 mg/3 mL) Sub-Q Pen Injector RxNorm: 283841 3.0 Milliliter(s) SQ daily 1.2 + 1.8 mg dose daily 201209/22/2012 Inactive Celexa 40 mg tablet RxNorm: 040768 1 Tablet(s) PO daily TAKE ONE TABLET BY MOUTH DAILY 09/21/2012 05/18/2013 Inactive Cardizem LA 360 mg tablet,extended release RxNorm: 999058 1 Tablet(s) PO daily 07/20/2012 04/15/2013 Inactive metoprolol succinate ER 100 mg tablet,extended release 24 hr RxNorm: 125437 1 Tablet(s) PO daily 07/20/2012 04/13/2013 Inactive Byetta 10 mcg/0.04 mL per dose Sub-Q Pen Injector RxNorm: 936437 1 Milliliter(s) SQ BID 06/18/2012 09/22/2012 Inactive Diovan 320 mg tablet RxNorm: 094993 1 Tablet(s) PO daily 201203/14/2013 Inactive metformin ER 1,000 mg tablet,extended release 24hr RxNorm: 419147 1 Tablet(s) PO BID 06/14/2012 09/11/2012 Inactive metformin ER 1,000 mg tablet,extended release 24hr RxNorm: 654255 1 Tablet(s) PO 06/14/2012 06/13/2012 Inactive Livalo 4 mg tablet RxNorm: 333346 1 Tablet(s) PO daily 201201/04/2014 Inactive Celexa 40 mg tablet RxNorm: 845865 1 Tablet(s) PO daily 201209/21/2012 Inactive Accu-Chek Instant Glucose Test Strips RxNorm: 1 Miscellaneous daily accucheck ratna glucometer 05/21/2012 06/14/2013 Inactive Diflucan 150 mg tablet RxNorm: 440793 1 Tablet(s) PO daily 05/26/2012 Inactive Flagyl 500 mg tablet RxNorm: 575933 1 Tablet(s) PO TID 201205/27/2012 Inactive Minivelle 0.0375 mg/24 hr transdermal patch RxNorm: 4496548 1 Patch TD BIW No Start Date Active aspirin 81 mg tablet RxNorm: 859218 1 Tablet(s) PO daily No Start Date Active Cardizem LA 360 mg tablet,extended release RxNorm: 115615 1 Tablet(s) PO daily No Start Date 07/19/2012 Inactive metformin ER 750 mg tablet,extended release 24 hr RxNorm: 145139 1 Tablet(s) PO TID No Start Date 06/13/2012 Inactive Zithromax Z-To 250 mg tablet RxNorm: 146676 Tablet(s) PO No Start Date 06/13/2012 Inactive Diovan 320 mg tablet RxNorm: 498224 1 Tablet(s) PO daily No Start Date 06/17/2012 Inactive Byetta 10 mcg/0.04 mL per dose Sub-Q Pen Injector RxNorm: 367638 1 Milliliter(s) SQ BID No Start Date 06/17/2012 Inactive Vivelle 0.05 mg/24 hr Transderm Patch RxNorm: 289966 1 Patch TD [id number] No Start Date 12/03/2015 Inactive Fish Oil 1,000 mg capsule RxNorm: 1 Capsule(s) PO BID No Start Date 05/29/2015 Inactive Celexa 40 mg tablet RxNorm: 084234 1 Tablet(s) PO daily No Start Date 06/09/2012 Inactive levothyroxine 100 mcg tablet RxNorm: 902321 1 Tablet(s) PO daily No Start Date 04/16/2015 Inactive Fish Oil 1,000 mg capsule RxNorm: 1 Capsule(s) PO daily No Start Date 12/02/2015 Inactive Vitamin B-12 1,000 mcg/mL oral drops RxNorm: 7176307 1 Milliliter(s) PO daily No Start Date 12/02/2015 Inactive metoprolol succinate ER 100 mg tablet,extended release 24 hr RxNorm: 565685 1 Tablet(s) PO daily No Start Date 2012 Inactive promethazine-codeine 6.25 mg-10 mg/5 mL Syrup RxNorm: 262500 5-10 Milliliter(s) PO Q6 PRN No Start Date 12/12/2012 Inactive Percocet 5 mg-325 mg tablet RxNorm: 9553781 1-2 Tablet(s) PO Q6 PRN No Start Date 10/02/2013 Inactive hydrochlorothiazide 25 mg tablet RxNorm: 545396 1 Tablet(s) PO daily No Start Date 06/05/2013 Inactive Victoza 2-To 0.6 mg/0.1 mL (18 mg/3 mL) subcutaneous pen injector RxNorm: 007269 Milligram(s) SQ 1.8mg daily No Start Date 09/13/2013 Inactive Livalo 4 mg tablet RxNorm: 012530 1 Tablet(s) PO daily No Start Date 06/09/2012 Inactive Medication Administered Medication Codes Instructions Start Date Status Kenalog 40 mg/mL suspension for injection RxNorm: 9445416 Milliliter 02/22/2018 No longer Active Kenalog 40 mg/mL suspension for injection RxNorm: 7810012 Milliliter 01/22/2016 No longer Active Kenalog 40 mg/mL suspension for injection RxNorm: 6097411 Milliliter 11/23/2014 No longer Active Kenalog 40 mg/mL suspension for injection RxNorm: 5581834 Milliliter 11/22/2014 No longer Active ketorolac 60 mg/2 mL intramuscular solution RxNorm: 367133 2Milliliter 06/06/2013 No longer Active Immunizations Vaccine [...] 15.1 g/dl 01/05/2018 Cbc With Differential Ord2 Neut% 77.6 % 01/05/2018 Cbc With Differential Ord2 HCT 45.1 % 01/05/2018 Cbc With Differential Ord2 MCV 88.3 fl 01/05/2018 Cbc With Differential Ord2 Lymph% 14.9 % 01/05/2018 Cbc With Differential Ord2 MCH 29.5 pg 01/05/2018 Cbc With Differential Ord2 Fountain% 5.5 % 01/05/2018 Cbc With Differential Ord2 [...] 1.46 K/ul 01/05/2018 Cbc With Differential Ord2 [place] ABS# 0.5 K/ul 01/05/2018 Cbc With Differential Ord2 Eos ABS# 0.2 K/ul 01/05/2018 Cbc With Differential Ord2 Baso ABS# 0.1 K/ul 01/05/2018 Free T4 Unt492 FREE T4 0.92 ng/dL 01/05/2018 Lipid Ord30 CHOL 200 mg/dL 01/05/2018 Lipid Ord30 HDL 48.0 mg/dl 01/05/2018 Lipid Ord30 TRIG 143 mg/dL 01/05/2018 Lipid Ord30 LDL 123 mg/dL 01/05/2018 Lipid Ord30 C/HDL 4.2 Ratio 01/05/2018 Comp Metabolic Iea275 NA 142 mEq/L 01/05/2018 Comp Metabolic Wcl024 K 3.9 mEq/L 01/05/2018 Comp Metabolic Lea442 CL 99 mEq/L 01/05/2018 Comp Metabolic Qrr385 CO2 34.0 mEq/L 01/05/2018 Comp Metabolic Dbv616 ANION GAP 13 01/05/2018 Comp Metabolic Hxa430 GLUCOSE 205 mg/dL 01/05/2018 Comp Metabolic Yrt213 Creat 1.0 mg/dL 01/05/2018 Comp Metabolic Xxf047 eGFR 65 ml/min/1.73m2 01/05/2018 Comp Metabolic Yfg110 BUN 12 mg/dL 01/05/2018 Comp Metabolic Iwe248 B/C Ratio 12.6 Ratio 01/05/2018 Comp Metabolic Nhe144 CALCIUM 9.5 mg/dL 01/05/2018 Comp Metabolic Uct081 ALK PHOS 150 U/L 01/05/2018 Comp Metabolic Ztu554 AST(SGOT) 16 U/L 01/05/2018 Comp Metabolic Zie643 ALT(SGPT) 15 U/L 01/05/2018 Comp Metabolic Eea840 BILI T 0.6 mg/dL 01/05/2018 Comp Metabolic Nfx033 ALBUMIN 3.9 g/dL 01/05/2018 Comp Metabolic Eao169 TPRO 6.6 g/dL 01/05/2018 Comp Metabolic Slk990 GLOB 2.7 g/dL 01/05/2018 Comp Metabolic Lyc922 A/G Ratio 1.5 Ratio 01/05/2018 Comp Metabolic Htt237 Osmo 289 mOsmo 01/05/2018 %Hba1C Qai841 % HbA1c 04901-6 10.9 % 01/05/2018 %Hba1C Avh513 Gluc Ave 266 mg/dL 01/05/2018 Lipid Ord30 [...] 49.1 % 09/29/2017 Cbc With Differential Ord2 MCV 89.6 fl 09/29/2017 Cbc With Differential Ord2 Lymph% 12.5 % 09/29/2017 Cbc With Differential Ord2 MCH 30.3 pg 09/29/2017 Cbc With Differential Ord2 [place]% 5.5 % 09/29/2017 Cbc With Differential Ord2 [...] 1.39 K/ul 09/29/2017 Cbc With Differential Ord2 [place] ABS# 0.6 K/ul 09/29/2017 Cbc With Differential Ord2 Eos ABS# 0.1 K/ul 09/29/2017 Cbc With Differential Ord2 Baso ABS# 0.1 K/ul 09/29/2017 Comp Metabolic Ott426 NA 140 mEq/L 09/29/2017 Comp Metabolic Alh860 K 3.4 mEq/L 09/29/2017 Comp Metabolic Auz077 CL 96 mEq/L 09/29/2017 Comp Metabolic Fle246 CO2 33.0 mEq/L 09/29/2017 Comp Metabolic Fun717 ANION GAP 14 09/29/2017 Comp Metabolic Mgm960 GLUCOSE 287 mg/dL 09/29/2017 Comp Metabolic Aua224 Creat 0.8 mg/dL 09/29/2017 Comp Metabolic Bon738 eGFR 77 ml/min/1.73m2 09/29/2017 Comp Metabolic Sfa731 BUN 13 mg/dL 09/29/2017 Comp Metabolic Fib367 B/C Ratio 15.9 Ratio 09/29/2017 Comp Metabolic Pxa210 CALCIUM 9.4 mg/dL 09/29/2017 Comp Metabolic Pch660 ALK PHOS 147 U/L 09/29/2017 Comp Metabolic Pro313 AST(SGOT) 17 U/L 09/29/2017 Comp Metabolic Loz642 ALT(SGPT) 25 U/L 09/29/2017 Comp Metabolic Kgj101 BILI T 0.7 mg/dL 09/29/2017 Comp Metabolic Yia334 ALBUMIN 4.2 g/dL 09/29/2017 Comp Metabolic Hxu814 TPRO 6.8 g/dL 09/29/2017 Comp Metabolic Zdb111 GLOB 2.6 g/dL 09/29/2017 Comp Metabolic Dwl706 A/G Ratio 1.6 Ratio 09/29/2017 Comp Metabolic Xix578 Osmo 290 mOsmo 09/29/2017 %Hba1C Ndv279 % HbA1c 02991-4 11.4 % 09/29/2017 %Hba1C Sao913 Gluc Ave 280 mg/dL 09/29/2017 Free T4 Jfd313 FREE T4 1.14 ng/dL 09/29/2017 Tsh Ord6 TSH (3rd IS) 2.91 uIU/mL 09/29/2017 Lipid Ord30 CHOL 182 mg/dL 06/02/2017 Lipid Ord30 HDL 57.0 mg/dl 06/02/2017 Lipid Ord30 TRIG 126 mg/dL 06/02/2017 Lipid Ord30 LDL 100 mg/dL 06/02/2017 Lipid Ord30 C/HDL 3.2 Ratio 06/02/2017 %Hba1C Htj207 % HbA1c 47223-3 8.2 % 06/02/2017 %Hba1C Lhv055 Gluc Ave 189 mg/dL 06/02/2017 Comp Metabolic Lyz643 NA 143 mEq/L 11/12/2016 Comp Metabolic Tky613 K 3.3 mEq/L 11/12/2016 Comp Metabolic Ubn809 CL 102 mEq/L 11/12/2016 Comp Metabolic Wca252 CO2 30.0 mEq/L 11/12/2016 Comp Metabolic Tso002 ANION GAP 14 11/12/2016 Comp Metabolic Rgs924 GLUCOSE 141 mg/dL 11/12/2016 Comp Metabolic Ofi422 Creat 0.8 mg/dL 11/12/2016 Comp Metabolic Keo181 eGFR 76 ml/min/1.73m2 11/12/2016 Comp Metabolic Jcz260 BUN 11 mg/dL 11/12/2016 Comp Metabolic Mdy506 B/C Ratio 13.3 Ratio 11/12/2016 Comp Metabolic Dzw571 CALCIUM 9.2 mg/dL 11/12/2016 Comp Metabolic Dqy018 ALK PHOS 116 U/L 11/12/2016 Comp Metabolic Zcx767 AST(SGOT) 21 U/L 11/12/2016 Comp Metabolic Qtc101 ALT(SGPT) 28 U/L 11/12/2016 Comp Metabolic Fuj138 BILI T 0.5 mg/dL 11/12/2016 Comp Metabolic Ddi583 ALBUMIN 3.8 g/dL 11/12/2016 Comp Metabolic Hov836 TPRO 6.4 g/dL 11/12/2016 Comp Metabolic Hxf469 GLOB 2.6 g/dL 11/12/2016 Comp Metabolic Gmu937 A/G Ratio 1.5 Ratio 11/12/2016 Comp Metabolic Qwm989 Osmo 287 mOsmo 11/12/2016 Lipid Ord30 CHOL 156 mg/dL 11/12/2016 Lipid Ord30 HDL 50.0 mg/dl 11/12/2016 Lipid Ord30 TRIG 153 mg/dL 11/12/2016 Lipid Ord30 LDL 75 mg/dL 11/12/2016 Lipid Ord30 C/HDL 3.1 Ratio 11/12/2016 Cbc With Differential Ord2 WBC 8.69 K/ul 11/12/2016 Cbc With Differential Ord2 RBC 4.89 M/ul 11/12/2016 Cbc With Differential Ord2 HGB 14.8 g/dl 11/12/2016 Cbc With Differential Ord2 Neut% 75.1 % 11/12/2016 Cbc With Differential Ord2 HCT 44.5 % 11/12/2016 Cbc With Differential Ord2 MCV 91.0 fl 11/12/2016 Cbc With Differential Ord2 Lymph% 16.9 % 11/12/2016 Cbc With Differential Ord2 MCH 30.3 pg 11/12/2016 Cbc With Differential Ord2 [place]% 5.8 % 11/12/2016 Cbc With Differential Ord2 MCHC 33.3 pg 11/12/2016 Cbc With Differential Ord2 Eos% 1.7 % 11/12/2016 Cbc With Differential Ord2 PLT 301 K/ul 11/12/2016 Cbc With Differential Ord2 Baso% 0.5 % 11/12/2016 Cbc With Differential Ord2 RDW 13.1 % 11/12/2016 Cbc With Differential Ord2 Neut ABS# 6.53 K/ul 11/12/2016 Cbc With Differential Ord2 Lymph ABS# 1.47 K/ul 11/12/2016 Cbc With Differential Ord2 [place] ABS# 0.5 K/ul 11/12/2016 Cbc With Differential Ord2 Eos ABS# 0.2 K/ul 11/12/2016 Cbc With Differential Ord2 Baso ABS# 0.0 K/ul 11/12/2016 Tsh Ord6 hTSH II 1.59 uIU/mL 11/12/2016 %Hba1C Bci370 % HbA1c 74976-7 7.5 % 11/12/2016 %Hba1C Hpj497 Gluc Ave 169 mg/dL 11/12/2016 Free T4 Dtj044 FREE T4 0.91 ng/dL 11/12/2016 Cbc With Differential Ord2 WBC 7.98 K/ul 07/04/2016 Cbc With Differential Ord2 RBC 5.08 M/ul 07/04/2016 Cbc With Differential Ord2 HGB 15.1 g/dl 07/04/2016 Cbc With Differential Ord2 Neut% 76.8 % 07/04/2016 Cbc With Differential Ord2 HCT 45.5 % 07/04/2016 Cbc With Differential Ord2 MCV 89.6 fl 07/04/2016 Cbc With Differential Ord2 Lymph% 13.8 % 07/04/2016 Cbc With Differential Ord2 MCH 29.7 pg 07/04/2016 Cbc With Differential Ord2 [place]% 7.1 % 07/04/2016 Cbc With Differential Ord2 MCHC 33.2 pg 07/04/2016 Cbc With Differential Ord2 Eos% 1.5 % 07/04/2016 Cbc With Differential Ord2 PLT 268 K/ul 07/04/2016 Cbc With Differential Ord2 Baso% 0.8 % 07/04/2016 Cbc With Differential Ord2 RDW 13.5 % 07/04/2016 Cbc With Differential Ord2 Neut ABS# 6.13 K/ul 07/04/2016 Cbc With Differential Ord2 Lymph ABS# 1.10 K/ul 07/04/2016 Cbc With Differential Ord2 [place] ABS# 0.6 K/ul 07/04/2016 Cbc With Differential Ord2 Eos ABS# 0.1 K/ul 07/04/2016 Cbc With Differential Ord2 Baso ABS# 0.1 K/ul 07/04/2016 Lipid Ord30 CHOL 282 mg/dL 07/04/2016 Lipid Ord30 HDL 53.0 mg/dl 07/04/2016 Lipid Ord30 TRIG 136 mg/dL 07/04/2016 Lipid Ord30 LDL 202 mg/dL 07/04/2016 Lipid Ord30 C/HDL 5.3 Ratio 07/04/2016 Tsh Ord6 hTSH II 1.21 uIU/mL 07/04/2016 %Hba1C Jbh705 % HbA1c 82466-8 7.1 % 07/04/2016 %Hba1C Jhz542 Gluc Ave 157 mg/dL 07/04/2016 Comp Metabolic Pee038 NA 141 mEq/L 07/04/2016 Comp Metabolic Bib633 K 3.5 mEq/L 07/04/2016 Comp Metabolic Wgl090 CL 100 mEq/L 07/04/2016 Comp Metabolic Ftz521 CO2 34.0 mEq/L 07/04/2016 Comp Metabolic Ubx146 ANION GAP 11 07/04/2016 Comp Metabolic Okz854 GLUCOSE 144 mg/dL 07/04/2016 Comp Metabolic Fxo758 Creat 0.8 mg/dL 07/04/2016 Comp Metabolic Gyk970 eGFR 75 ml/min/1.73m2 07/04/2016 Comp Metabolic Wlg490 BUN 10 mg/dL 07/04/2016 Comp Metabolic Ayy065 B/C Ratio 11.9 Ratio 07/04/2016 Comp Metabolic Ieh062 CALCIUM 9.4 mg/dL 07/04/2016 Comp Metabolic Ieg889 ALK PHOS 116 U/L 07/04/2016 Comp Metabolic Fyr544 AST(SGOT) 16 U/L 07/04/2016 Comp Metabolic Ahi353 ALT(SGPT) 17 U/L 07/04/2016 Comp Metabolic Fdz782 BILI T 0.6 mg/dL 07/04/2016 Comp Metabolic Gjd749 ALBUMIN 4.3 g/dL 07/04/2016 Comp Metabolic Evr549 TPRO 7.0 g/dL 07/04/2016 Comp Metabolic Pbj818 GLOB 2.7 g/dL 07/04/2016 Comp Metabolic Zuq063 A/G Ratio 1.6 Ratio 07/04/2016 Comp Metabolic Fxw382 Osmo 283 mOsmo 07/04/2016 Free T4 Kin082 FREE T4 0.87 ng/dL 07/04/2016 Cbc With Differential Ord2 WBC 5.56 K/ul 03/31/2016 Cbc With Differential Ord2 RBC 4.75 M/ul 03/31/2016 Cbc With Differential Ord2 HGB 14.2 g/dl 03/31/2016 Cbc With Differential Ord2 Neut% 69.6 % 03/31/2016 Cbc With Differential Ord2 HCT 43.1 % 03/31/2016 Cbc With Differential Ord2 MCV 90.7 fl 03/31/2016 Cbc With Differential Ord2 Lymph% 21.9 % 03/31/2016 Cbc With Differential Ord2 MCH 29.9 pg 03/31/2016 Cbc With Differential Ord2 [place]% 6.5 % 03/31/2016 Cbc With Differential Ord2 MCHC 32.9 pg 03/31/2016 Cbc With Differential Ord2 Eos% 1.8 % 03/31/2016 Cbc With Differential Ord2 PLT 252 K/ul 03/31/2016 Cbc With Differential Ord2 Baso% 0.2 % 03/31/2016 Cbc With Differential Ord2 RDW 13.6 % 03/31/2016 Cbc With Differential Ord2 Neut ABS# 3.87 K/ul 03/31/2016 Cbc With Differential Ord2 Lymph ABS# 1.22 K/ul 03/31/2016 Cbc With Differential Ord2 [place] ABS# 0.4 K/ul 03/31/2016 Cbc With Differential Ord2 Eos ABS# 0.1 K/ul 03/31/2016 Cbc With Differential Ord2 Baso ABS# 0.0 K/ul 03/31/2016 Comp Metabolic Tsk620 NA 137 mEq/L 03/31/2016 Comp Metabolic Pof079 K 3.3 mEq/L 03/31/2016 Comp Metabolic Klb608 CL 101 mEq/L 03/31/2016 Comp Metabolic Yow128 CO2 26.0 mEq/L 03/31/2016 Comp Metabolic Soo098 ANION GAP 13 03/31/2016 Comp Metabolic Pgz730 GLUCOSE 150 mg/dL 03/31/2016 Comp Metabolic Vev399 Creat 0.9 mg/dL 03/31/2016 Comp Metabolic Bpl840 eGFR 71 ml/min/1.73m2 03/31/2016 Comp Metabolic Gpo038 BUN 13 mg/dL 03/31/2016 Comp Metabolic Ztn312 B/C Ratio 14.8 Ratio 03/31/2016 Comp Metabolic Rxx496 CALCIUM 8.8 mg/dL 03/31/2016 Comp Metabolic Dqc699 ALK PHOS 103 U/L 03/31/2016 Comp Metabolic Ozf233 AST(SGOT) 18 U/L 03/31/2016 Comp Metabolic Rhq177 ALT(SGPT) 21 U/L 03/31/2016 Comp Metabolic Ykg691 BILI T 0.4 mg/dL 03/31/2016 Comp Metabolic Gks187 ALBUMIN 3.9 g/dL 03/31/2016 Comp Metabolic Qyz190 TPRO 6.5 g/dL 03/31/2016 Comp Metabolic Rso207 GLOB 2.6 g/dL 03/31/2016 Comp Metabolic Jzv655 A/G Ratio 1.5 Ratio 03/31/2016 Comp Metabolic Pzf733 Osmo 277 mOsmo 03/31/2016 Cbc With Differential Ord2 WBC 10.13 K/ul 02/12/2016 Cbc With Differential Ord2 RBC 4.48 M/ul 02/12/2016 Cbc With Differential Ord2 HGB 13.6 g/dl 02/12/2016 Cbc With Differential Ord2 Neut% 66.3 % 02/12/2016 Cbc With Differential Ord2 HCT 41.0 % 02/12/2016 Cbc With Differential Ord2 MCV 91.5 fl 02/12/2016 Cbc With Differential Ord2 Lymph% 23.9 % 02/12/2016 Cbc With Differential Ord2 MCH 30.4 pg 02/12/2016 Cbc With Differential Ord2 [place]% 7.0 % 02/12/2016 Cbc With Differential Ord2 [...] 2.42 K/ul 02/12/2016 Cbc With Differential Ord2 [place] ABS# 0.7 K/ul 02/12/2016 Cbc With Differential Ord2 Eos ABS# 0.2 K/ul 02/12/2016 Cbc With Differential Ord2 Baso ABS# 0.1 K/ul 02/12/2016 Comp Metabolic Ygi494 NA 138 mEq/L 02/01/2016 Comp Metabolic Frd473 K 4.3 mEq/L 02/01/2016 Comp Metabolic Ozm805 CL 101 mEq/L 02/01/2016 Comp Metabolic Tyy148 CO2 27.0 mEq/L 02/01/2016 Comp Metabolic Vyw289 ANION GAP 14 02/01/2016 Comp Metabolic Zti549 GLUCOSE 127 mg/dL 02/01/2016 Comp Metabolic Iub242 Creat 1.0 mg/dL 02/01/2016 Comp Metabolic Oum785 eGFR 61 ml/min/1.73m2 02/01/2016 Comp Metabolic Ueb122 BUN 21 mg/dL 02/01/2016 Comp Metabolic Cdt703 B/C Ratio 20.8 Ratio 02/01/2016 Comp Metabolic Wlr688 CALCIUM 9.1 mg/dL 02/01/2016 Comp Metabolic Hlk193 ALK PHOS 105 U/L 02/01/2016 Comp Metabolic Ijy170 AST(SGOT) 14 U/L 02/01/2016 Comp Metabolic Cjl408 ALT(SGPT) 26 U/L 02/01/2016 Comp Metabolic Gwt216 BILI T 0.4 mg/dL 02/01/2016 Comp Metabolic Ucv117 ALBUMIN 3.9 g/dL 02/01/2016 Comp Metabolic Lok388 TPRO 6.7 g/dL 02/01/2016 Comp Metabolic Bqz420 GLOB 2.8 g/dL 02/01/2016 Comp Metabolic Czm746 A/G Ratio 1.4 Ratio 02/01/2016 Comp Metabolic Ztd634 Osmo 280 mOsmo 02/01/2016 Tsh Ord6 hTSH II 2.00 uIU/mL 02/01/2016 Cbc With Differential Ord2 WBC 13.41 K/ul 02/01/2016 Cbc With Differential Ord2 RBC 5.06 M/ul 02/01/2016 Cbc With Differential Ord2 HGB 15.4 g/dl 02/01/2016 Cbc With Differential Ord2 Neut% 64.4 % 02/01/2016 Cbc With Differential Ord2 HCT 46.3 % 02/01/2016 Cbc With Differential Ord2 MCV 91.5 fl 02/01/2016 Cbc With Differential Ord2 Lymph% 27.9 % 02/01/2016 Cbc With Differential Ord2 MCH 30.4 pg 02/01/2016 Cbc With Differential Ord2 [place]% 5.8 % 02/01/2016 Cbc With Differential Ord2 MCHC 33.3 pg 02/01/2016 Cbc With Differential Ord2 Eos% 1.6 % 02/01/2016 Cbc With Differential Ord2 PLT 392 K/ul 02/01/2016 Cbc With Differential Ord2 Baso% 0.3 % 02/01/2016 Cbc With Differential Ord2 RDW 13.6 % 02/01/2016 Cbc With Differential Ord2 Neut ABS# 8.63 K/ul 02/01/2016 Cbc With Differential Ord2 Lymph ABS# 3.74 K/ul 02/01/2016 Cbc With Differential Ord2 [place] ABS# 0.8 K/ul 02/01/2016 Cbc With Differential Ord2 Eos ABS# 0.2 K/ul 02/01/2016 Cbc With Differential Ord2 Baso ABS# 0.0 K/ul 02/01/2016 %Hba1C Cmd143 % HbA1c 85470-2 6.9 % 01/07/2016 %Hba1C Hkm742 Gluc Ave 151 mg/dL 01/07/2016 Tsh Ord6 hTSH II 0.99 uIU/mL 11/08/2015 Free T4 Spl644 FREE T4 1.01 ng/dL 11/08/2015 %Hba1C Btf563 % HbA1c 15790-0 6.6 % 09/14/2015 %Hba1C Ztr823 Gluc Ave 143 mg/dL 09/14/2015 Lipid Ord30 [...] 21.4 % 09/12/2015 Cbc With Differential Ord2 [place]% 5.9 % 09/12/2015 Cbc With Differential Ord2 MCH 29.9 pg 09/12/2015 Cbc With Differential Ord2 MCHC 33.4 pg 09/12/2015 Cbc With Differential Ord2 Eos% 1.7 % 09/12/2015 Cbc With Differential Ord2 PLT 296 K/ul 09/12/2015 Cbc With Differential Ord2 Baso% 0.6 % 09/12/2015 Cbc With Differential Ord2 RDW 13.3 % 09/12/2015 Cbc With Differential Ord2 Neut ABS# 4.87 K/ul 09/12/2015 Cbc With Differential Ord2 Lymph ABS# 1.48 K/ul 09/12/2015 Cbc With Differential Ord2 [place] ABS# 0.4 K/ul 09/12/2015 Cbc With Differential Ord2 Eos ABS# 0.1 K/ul 09/12/2015 Cbc With Differential Ord2 Baso ABS# 0.0 K/ul 09/12/2015 Cbc With Differential Ord2 New Analyzer Notice Please note new ref ranges starting 05-09-2015 due to implemntation of new five part differential hematolgy analyzer. 09/12/2015 Comp Metabolic Rms566 NA 139 mEq/L 09/12/2015 Comp Metabolic Wim053 K 3.7 mEq/L 09/12/2015 Comp Metabolic Yjt422 CL 102 mEq/L 09/12/2015 Comp Metabolic Bkq951 CO2 30.0 mEq/L 09/12/2015 Comp Metabolic Pck657 ANION GAP 11 09/12/2015 Comp Metabolic Hsq614 GLUCOSE 135 mg/dL 09/12/2015 Comp Metabolic Ytz450 Creat 0.8 mg/dL 09/12/2015 Comp Metabolic Mfi860 eGFR 86 ml/min/1.73m2 09/12/2015 Comp Metabolic Bmz515 BUN 10 mg/dL 09/12/2015 Comp Metabolic Ojr190 B/C Ratio 13.3 Ratio 09/12/2015 Comp Metabolic Uzv953 CALCIUM 8.8 mg/dL 09/12/2015 Comp Metabolic Cer093 ALK PHOS 95 U/L 09/12/2015 Comp Metabolic Vae691 AST(SGOT) 18 U/L 09/12/2015 Comp Metabolic Itu381 ALT(SGPT) 20 U/L 09/12/2015 Comp Metabolic Dnc935 BILI T 0.5 mg/dL 09/12/2015 Comp Metabolic Xit209 ALBUMIN 3.9 g/dL 09/12/2015 Comp Metabolic Nhb320 TPRO 6.5 g/dL 09/12/2015 Comp Metabolic Khy630 GLOB 2.6 g/dL 09/12/2015 Comp Metabolic Iic859 A/G Ratio 1.5 Ratio 09/12/2015 Comp Metabolic Oss983 Osmo 279 mOsmo 09/12/2015 Tsh Ord6 hTSH II 0.81 uIU/mL 08/01/2015 Free T4 Zpr841 FREE T4 0.82 ng/dL 08/01/2015 Vitamin B12 158047 VITAMIN B12 TEST NOT PERFORMED pg/mL 2015 Vitamin D 25 Oh Fzq8941 VITAMIN D, 25 HYDROXY 50.78 ng/mL Comp Metabolic Dfx747 NA 142 mEq/L 04/12/2015 Comp Metabolic Yxs617 K 3.5 mEq/L 04/12/2015 Comp Metabolic Rsh240 CL 102 mEq/L 04/12/2015 Comp Metabolic Fmd417 CO2 32.0 mEq/L 04/12/2015 Comp Metabolic Hlp819 ANION GAP 12 04/12/2015 Comp Metabolic Qbi324 GLUCOSE 130 mg/dL 04/12/2015 Comp Metabolic Dir017 Creat 0.8 mg/dL 04/12/2015 Comp Metabolic Xiy549 eGFR 78 ml/min/1.73m2 04/12/2015 Comp Metabolic Yfv486 BUN 12 mg/dL 04/12/2015 Comp Metabolic Hfx009 B/C Ratio 14.6 Ratio 04/12/2015 Comp Metabolic Zjs868 CALCIUM 8.9 mg/dL 04/12/2015 Comp Metabolic Euv152 ALK PHOS 95 U/L 04/12/2015 Comp Metabolic Ftm461 AST(SGOT) 21 U/L 04/12/2015 Comp Metabolic Red541 ALT(SGPT) 23 U/L 04/12/2015 Comp Metabolic Udd071 BILI T 0.4 mg/dL 04/12/2015 Comp Metabolic Xct777 ALBUMIN 3.9 g/dL 04/12/2015 Comp Metabolic Cyu976 TPRO 6.3 g/dL 04/12/2015 Comp Metabolic Xlj141 GLOB 2.4 g/dL 04/12/2015 Comp Metabolic Uyp780 A/G Ratio 1.6 Ratio 04/12/2015 Comp Metabolic Ceb715 Osmo 285 mOsmo 04/12/2015 Tsh Ord6 hTSH II 0.18 uIU/mL 04/12/2015 %Hba1C Vmp098 % HbA1c 92686-4 6.4 % 04/12/2015 %Hba1C Ovt663 Gluc Ave 137 mg/dL 04/12/2015 Free T4 Wvg976 FREE T4 1.13 ng/dL 04/12/2015 Cbc With [...] Ord2 RDW 14.6 % 11/14/2014 Comp Metabolic His266 NA 137 mEq/L 11/14/2014 Comp Metabolic Vtw667 K 3.6 mEq/L 11/14/2014 Comp Metabolic Swu364 CL 98 mEq/L 11/14/2014 Comp Metabolic Goy252 CO2 31.0 mEq/L 11/14/2014 Comp Metabolic Hsl359 ANION GAP 12 11/14/2014 Comp Metabolic Erw705 GLUCOSE 110 mg/dL 11/14/2014 Comp Metabolic Gic892 Creat 0.8 mg/dL 11/14/2014 Comp Metabolic Jmz332 eGFR 81 ml/min/1.73m2 11/14/2014 Comp Metabolic Nig085 BUN 14 mg/dL 11/14/2014 Comp Metabolic Jad045 B/C Ratio 17.7 Ratio 11/14/2014 Comp Metabolic Fia187 CALCIUM 9.2 mg/dL 11/14/2014 Comp Metabolic Wrb764 ALK PHOS 135 U/L 11/14/2014 Comp Metabolic Eyr494 AST(SGOT) 17 U/L 11/14/2014 Comp Metabolic Xrv244 ALT(SGPT) 20 U/L 11/14/2014 Comp Metabolic Qpu566 BILI T 0.3 mg/dL 11/14/2014 Comp Metabolic Toq468 ALBUMIN 3.7 g/dL 11/14/2014 Comp Metabolic Keh620 TPRO 6.5 g/dL 11/14/2014 Comp Metabolic Buf127 GLOB 2.8 g/dL 11/14/2014 Comp Metabolic Qkr851 A/G Ratio 1.3 Ratio 11/14/2014 Comp Metabolic Vgd521 Osmo 275 mOsmo 11/14/2014 GFR CALC 3629780 GFR AA >60 ML/MIN 04/11/2014 GFR CALC 6421719 GFR NON-AA >60 ML/MIN 04/11/2014 CHEM 14 5598002 AST 18 U/L 04/11/2014 CHEM 14 3282094 ALT 25 IU/L 04/11/2014 CHEM 14 0204587 BUN 13 MG/DL 04/11/2014 CHEM 14 6592732 ALBUMIN 4.1 GM/DL 04/11/2014 CHEM 14 5286187 CHLORIDE 103 MMOL/L 04/11/2014 CHEM 14 0090118 BILI TOT 0.3 MG/DL 04/11/2014 CHEM 14 4418143 ALK PHOS 107 U/L 04/11/2014 CHEM 14 4260259 SODIUM 139 MMOL/L 04/11/2014 CHEM 14 0139560 CREATININE 0.85 MG/DL 04/11/2014 CHEM 14 7614144 CALCIUM 9.2 MG/DL 04/11/2014 CHEM 14 4590709 POTASSIUM 3.7 MMOL/L 04/11/2014 CHEM 14 9826285 PROT TOT 7.1 GM/DL 04/11/2014 CHEM 14 0360729 GLUCOSE 85 MG/DL 04/11/2014 CHEM 14 6305554 BICARB 28 MMOL/L 04/11/2014 CHEM 14 5267540 ANION GAP 8 MEQ/L 04/11/2014 URINALYSIS NONAUTO W/O SCOPE 72947 Specific Camp 1.020 DateTime(Free Text in Aprima) URINALYSIS NONAUTO W/O SCOPE 39464 PH 5.0 DateTime(Free Text in Aprima) URINALYSIS NONAUTO W/O SCOPE 09783 Protein neg DateTime( Free Text in Aprima) URINALYSIS NONAUTO W/O SCOPE 71835 Blood neg DateTime(Free Text in Apr[employer]) URINALYSIS NONAUTO W/O SCOPE 34476 Bilirubin neg DateTime(Free Text in Aprima) URINALYSIS NONAUTO W/O SCOPE 50385 Ketones small DateTime(Free Text in Aprima) URINALYSIS NONAUTO W/O SCOPE 91717 Urobilinogen neg DateTime(Free Text in Aprima) URINALYSIS NONAUTO W/O SCOPE 79221 Nitrite neg DateTime( Free Text in Aprima) URINALYSIS NONAUTO W/O SCOPE 05435 Leukocytes neg DateTime(Free Text in Aprima) Review [...] clear 01/07/2018 None Full Exam - General 1995 Ears/Nose/Throat otoscopic exam Overall: tympanic membranes clear 01/07/2018 None Full Exam - General 1995 Ears/Nose/Throat lips/teeth/gingiva Overall: benign lips 01/07/2018 None Full Exam - General 1995 Ears/Nose/Throat oral cavity/pharynx/larynx Overall: oral mucosa clear 01/07/2018 None Full Exam - General 1995 Ears/Nose/Throat [...] nourished 10/10/2013 None Full Exam - General 1994 Eyes conjunctiva /eyelids Overall: conjunctiva clear 10/10/2013 [...] masses 08/02/2013 None Full Exam - General 1995 Ears/Nose/Throat [...] nourished 06/20/2013 None Full Exam - General 1995 Eyes conjunctiva /eyelids Overall: conjunctiva clear 06/20/2013 [...] clear 06/06/2013 None Full Exam - General 1995 Ears/Nose/Throat oral cavity/pharynx/larynx Overall: no masses 06/06/2013 None Full Exam - General 1995 Ears/Nose/Throat [...] accomodation 02/21/2013 None Full Exam - General 1994 Respiratory respiratory effort/rhythm Overall: no retractions 02/21/2013 None Full Exam - General 1994 Respiratory respiratory effort/rhythm Overall: normal rate 02/21/2013 [...] benign 02/21/2013 None Full Exam - General 1995 Neurologic cranial nerves Overall: crainial nerves 2 [...] distress 12/13/2012 None Full Exam - General 1995 Constitutional general appearance Overall: well nourished 12/13/2012 None Full Exam - General 1995 Eyes conjunctiva /eyelids Overall: conjunctiva clear 12/13/2012 None Full Exam - General 1994 Eyes conjunctiva /eyelids Overall: cornea clear 12/13/2012 None Full Exam - General 1994 Eyes conjunctiva /eyelids Overall: eyelids normal 12/13/2012 None Full Exam - General 1994 Eyes pupils and irises Overall: pupils equal, round, reactive to light and accomodation 12/13/2012 None Full Exam - General 1994 Respiratory auscultation Overall: breath sounds clear bilaterally 12/13/2012 None Full Exam - General 1994 Respiratory respiratory effort/rhythm Overall: no retractions 12/13/2012 None Full Exam - General 1994 Respiratory respiratory effort/rhythm Overall: normal rate 12/13/2012 None Full Exam - General 1994 Cardiovascular extremities Overall: no clubbing 12/13/2012 None Full Exam - General 1994 [...] benign 12/13/2012 None Full Exam - General 1994 [...] bilaterally 06/14/2012 None Full Exam - General 1994 Respiratory respiratory effort/rhythm Overall: normal rate 06/14/2012 None Full Exam - General 1994 Respiratory respiratory effort/rhythm Overall: no retractions 06/14/2012 None Full Exam - General 1994 Ears/Nose/Throat [...] - General 1995 Eyes conjunctiva /eyelids Overall: eyelids normal 06/14/2012 [...] 1994 Ears/Nose/Throat oral cavity/pharynx/larynx Overall: no masses 05/21/2012 [...] CPT-4: J3301 02/22/2018 IMMUNIZATION ADMIN CPT -4: 34598 01/07/2018 FLU VAC NO PRSV 4 SHAKILA 3 YRS+ CPT-4: 48212 01/07/2018 TRIAMCINOLONE ACET INJ NOS CPT-4: J3301 01/22/2016 TRIAMCINOLONE ACET INJ NOS CPT-4: J3301 11/23/2014 THER/PROPH/DIAG INJ SC/IM CPT-4: 42197 11/23/2014 THER/PROPH/DIAG INJ SC/IM CPT-4: 40010 11/22/2014 TRIAMCINOLONE ACET INJ NOS CPT-4: J3301 11/22/2014 URINALYSIS NONAUTO W/O SCOPE CPT-4: 29355 11/14/2014 ROUTINE VENIPUNCTURE CPT-4: 23891 04/11/2014 CHEM 14 (COMPREHEN METABOLIC PANEL) CPT-4: 33040 04/11/2014 IMMUNIZATION ADMIN CPT -4: 57918 01/05/2014 FLU VAC NO PRSV 4 SHAKILA 3 YRS+ Assigned to/Alyssa Thomas CPT-4: 42221Azwcoun 01/05/2014 FOOT EXAM PERFORMED SNOMED CT: 81840302 CPT-4: 2028F 06/20/2013 KETOROLAC TROMETHAMINE INJ CPT-4: J1885 06/06/2013 THER/PROPH/DIAG INJ SC/IM CPT-4: 56639 06/06/2013 Vital Signs Date Vital 02/22/2018 Blood Pressure 1: 130/68 Code : 8480-6 BMI: 31.5 Code : 82019-7 Heart Rate 1 : 91 bpm Height: 5'6" SpO2: 98% Weight: 192 lbs 01/07/2018 Blood Pressure 1: 138/82 Code : 8480-6 BMI: 31.3 Code : 04316-8 Heart Rate 1 : 95 bpm Height: 5'6" SpO2: 98% Weight: 191 lbs 10/01/2017 Blood Pressure 1: 138/88 Code : 8480-6 BMI: 30.3 Code : 20504-1 Heart Rate 1 : 80 bpm Height: 5'6" SpO2: 98% Weight: 185 lbs 06/08/2017 Blood Pressure 1: 148/92 Code : 8480-6 BMI: 31.5 Code : 17975-0 Heart Rate 1 : 88 bpm Height: 5'6" SpO2: 98% Weight: 192 lbs 11/12/2016 Blood Pressure 1: 140/80 Code : 8480-6 BMI: 29.7 Code : 43822-0 Heart Rate 1 : 82 bpm Height: 5'6" SpO2: 96% Weight: 181 lbs 08/11/2016 Blood Pressure 1: 152/88 Code : 8480-6 BMI: 30.3 Code : 87145-1 Heart Rate 1 : 73 bpm Height: 5'6" SpO2: 98% Weight: 185 lbs 03/31/2016 Blood Pressure 1: 124/86 Code : 8480-6 BMI: 30.2 Code : 77692-9 Heart Rate 1 : 86 bpm Height: 5'6" SpO2: 95% Weight: 184 lbs 02/01/2016 Blood Pressure 1: 112/60 Code : 8480-6 BMI: 29.5 Code : 80489-3 Heart Rate 1 : 68 bpm Height: 5'6" SpO2: 98% Weight: 180 lbs 01/22/2016 Blood Pressure 1: 132/80 Code : 8480-6 BMI: 29.8 Code : 46831-4 Heart Rate 1 : 76 bpm Height: 5'6" SpO2: 98% Temperature: 35.7 (C) / 96.2 (F) Weight: 182 lbs 01/07/2016 Blood Pressure 1: 134/86 Code : 8480-6 BMI: 30.0 Code : 29989-5 Heart Rate 1 : 78 bpm Height: 5'6" SpO2: 98% Weight: 183 lbs 12/03/2015 Blood Pressure 1: 146/86 Code : 8480-6 BMI: 30.2 Code : 26879-5 Heart Rate 1 : 93 bpm Height: 5'6" SpO2: 98% Weight: 184 lbs 8 oz 09/17/2015 Blood Pressure 1: 140/88 Code : 8480-6 BMI: 29.5 Code : 00316-1 Heart Rate 1 : 77 bpm Height: 5'6" SpO2: 98% Weight: 180 lbs 05/29/2015 Blood Pressure 1: 140/80 Code : 8480-6 BMI: 28.2 Code : 51364-7 Heart Rate 1 : 83 bpm Height: 5'6" SpO2: 98% Weight: 172 lbs 12/12/2014 Blood Pressure 1: 150/92 Code : 8480-6 BMI: 28.2 Code : 62738-9 Heart Rate 1 : 91 bpm Height: 5'6" SpO2: 96% Weight: 172 lbs 11/23/2014 Blood Pressure 1: 138/92 Code : 8480-6 11/22/2014 Blood Pressure 1: 126/80 Code : 8480-6 BMI: 28.7 Code : 49922-2 Heart Rate 1 : 86 bpm Height: 5'6" SpO2: 97% Weight: 175 lbs 11/14/2014 Blood Pressure 1: 130/82 Code : 8480-6 BMI: 28.7 Code : 97503-3 Heart Rate 1 : 72 bpm Height: 5'6" Temperature: 36.3 (C) / 97.4 (F) Weight: 175 lbs 09/04/2014 Blood Pressure 1: 128/82 Code : 8480-6 BMI: 30.3 Code : 67468-3 Heart Rate 1 : 80 bpm Height: 5'6" Weight: 185 lbs 08/04/2014 Blood Pressure 1: 140/82 Code : 8480-6 BMI: 31.3 Code : 68783-8 Heart Rate 1 : 92 bpm Height: 5'6" SpO2: 99% Weight: 191 lbs 04/11/2014 Blood Pressure 1: 142/80 Code : 8480-6 BMI: 34.7 Code : 60616-6 Heart Rate 1 : 74 bpm Height: 5'6" Weight: 212 lbs 01/05/2014 Blood Pressure 1: 144/84 Code : 8480-6 BMI: 36.7 Code : 53747-8 Heart Rate 1 : 89 bpm Height: 5'6" SpO2: 97% Weight: 224 lbs 10/10/2013 Blood Pressure 1: 112/70 Code : 8480-6 BMI: 36.1 Code : 61689-9 Heart Rate 1 : 104 bpm Height: 5'6" Weight: 220 lbs 08/02/2013 Blood Pressure 1: 178/98 Code : 8480-6 BMI: 36.4 Code : 95075-2 Heart Rate 1 : 100 bpm Height: 5'6" Weight: 222 lbs 06/30/2013 Blood Pressure 1: 142/82 Code : 8480-6 BMI: 35.9 Code : 72489-4 Heart Rate 1 : 86 bpm Height: 5'6" SpO2: 98% Temperature: 36.3 (C) / 97.3 (F) Weight: 219 lbs 06/20/2013 Blood Pressure 1: 126/78 Code : 8480-6 BMI: 36.2 Code : 83417-3 Heart Rate 1 : 76 bpm Height: 5'6" Weight: 221 lbs 06/06/2013 Blood Pressure 1: 158/98 Code : 8480-6 BMI: 36.2 Code : 89188-4 Heart Rate 1 : 92 bpm Height: 5'6" Weight: 221 lbs 02/21/2013 Blood Pressure 1: 128/82 Code : 8480-6 BMI: 35.2 Code : 32751-5 Heart Rate 1 : 80 bpm Height: 5'6" Temperature: 35.7 (C) / 96.3 (F) Weight: 215 lbs 12/13/2012 Blood Pressure 1: 132/86 Code : 8480-6 BMI: 35.7 Code : 16947-3 Heart Rate 1 : 80 bpm Height: 5'6" Weight: 218 lbs 09/23/2012 Blood Pressure 1: 132/90 Code : 8480-6 BMI: 36.2 Code : 34105-2 Heart Rate 1 : 84 bpm Height: 5'6" Weight: 221 lbs 06/14/2012 Blood Pressure 1: 134/84 Code : 8480-6 Heart Rate 1: 84 bpm Respiratory Rate : 20 bpm Weight: 221 lbs 05/21/2012 Blood Pressure 1: 136/80 Code : 8480-6 BMI: 35.9 Code : 41075-2 Heart Rate 1 : 20 bpm Height: [...] surgery was canceled. She was referred to [facility] at acute renal failure Onset of Symptom [...] diabetes mellitus Exercise minimal exercise 01/05/2014 starting [facility] diabetes mellitus Pertinent Findings Denies dyspnea [...] in the larynx 02/21/2013 patient went to [facility] thursday. was given a zpack, prednisone, and [...] data Encounters Encounter Performer Location Codes Date EST. PATIENT, LEVEL IV Diagnosis: Other acute sinusitis[ICD10: J01.80] Diagnosis: Other allergic rhinitis[ICD10: J30.89] Diagnosis: Actinic keratosis[ICD10: L57.0] Diagnosis: Pain in left forearm[ICD10: M79.632] Diagnosis: Generalized anxiety disorder[ICD10: F41.1] Diagnosis: Major depressive disorder, single episode, moderate[ICD10: F32.1] Tiffanie Curran MD, [facility] CPT-4: 08143 02/22/2018 49552 EST. PATIENT, LEVEL IV Diagnosis: Type 2 diabetes mellitus with hyperglycemia[ICD10: E11.65] Diagnosis: Other specified hypothyroidism[ICD10: E03.8] Diagnosis: VACCIN FOR INFLUENZA[ICD10: Z23] Tiffanie Curran MD, [facility] CPT- 4: 06504 01/07/2018 10210 EST. PATIENT, LEVEL IV Diagnosis: Type 2 diabetes mellitus with hyperglycemia[ICD10: E11.65] Diagnosis: Other specified hypothyroidism[ICD10: E03.8] Diagnosis: Other allergic rhinitis[ICD10: J30.89] Tiffanie Curran MD, [facility] CPT-4: 52729 10/01/2017 44578 EST. PATIENT, LEVEL IV Diagnosis: Type 2 diabetes mellitus with hyperglycemia[ICD10: E11.65] Diagnosis: Hypothyroidism, unspecified[ICD10: E03.9] Diagnosis: Generalized anxiety disorder[ICD10: F41.1] Diagnosis: Major depressive disorder, single episode, moderate[ICD10: F32.1] Tiffanie Curran MD, [facility] CPT-4: 49949 06/08/2017 ([id number]) PREV VISIT EST AGE 40-64 Diagnosis: Encounter for general adult medical examination without abnormal findings[ICD10: Z00.00] Eleonora Curran MD, [facility] CPT-4: 10268 11/12/2016 ([id number]) 46169 EST. PATIENT, LEVEL III Diagnosis: Allergic rhinitis due to pollen[ICD10: J30.1] Diagnosis: Acute upper respiratory infection, unspecified[ICD10: J06.9] Talya Curran MD, [facility] CPT-4: 62160 09/16/2016 ([id number]) 12602 EST. PATIENT, LEVEL IV Diagnosis: Essential (primary) hypertension[ICD10: I10] Diagnosis: Type 2 diabetes mellitus without complications[ICD10: E11.9] Diagnosis: Functional diarrhea[ICD10: K59.1] Diagnosis: Mixed hyperlipidemia[ICD10: E78.2] Eleonora Curran MD, [facility] CPT-4: 90717 08/11/2016 ([id number]) 44917 EST. PATIENT, LEVEL III Diagnosis: Cramp and spasm[ICD10: R25.2] Diagnosis: Nausea[ICD10: R11.0] Talya Curran MD, [facility] CPT-4: 09147 03/31/2016 ([id number]) 34238 EST. PATIENT, LEVEL IV Diagnosis: Cough[ICD10: R05] Diagnosis: Essential (primary) hypertension[ICD10: I10] Diagnosis: Hypothyroidism, unspecified[ICD10: E03.9] Diagnosis: Gastro-esophageal reflux disease without esophagitis[ICD10: K21.9] Talya Curran MD, [facility] CPT-4: 85559 02/01/2016 ([id number]) 41490 EST. PATIENT, LEVEL III Diagnosis: Cough[ICD10: R05] Diagnosis: Acute bronchitis, unspecified[ICD10: J20.9] Talya Curran MD, [facility] CPT-4: 10755 01/22/2016 ([id number]) 00476 EST. PATIENT, LEVEL IV Diagnosis: Type 2 diabetes mellitus without complications[ICD10: E11.9] Diagnosis: Essential (primary) hypertension[ICD10: I10] Diagnosis: Dysphagia, pharyngeal phase[ICD10: R13.13] Eleonora Curran MD, [facility] CPT-4: 60293 01/07/2016 ([id number]) 45717 EST. PATIENT, LEVEL IV Diagnosis: Type 2 diabetes mellitus without complications[ICD10: E11.9] Diagnosis: Essential (primary) hypertension[ICD10: I10] Diagnosis: Pain in right knee[ICD10: M25.561] Eleonora Curran MD, [facility] CPT-4: 19040 12/03/2015 ([id number]) 85034 EST. PATIENT, LEVEL IV Diagnosis: Type 2 diabetes mellitus with hyperglycemia[ICD10: E11.65] Diagnosis: Essential (primary) hypertension[ICD10: I10] Eleonora Curran MD, [facility] CPT-4: 62814 09/17/2015 ([id number]) 80189 EST. 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 CPT-4: 89915 05/29/2015 ([id number]) 53133 EST. PATIENT, LEVEL III Diagnosis: Diabetes mellitus, type II[ICD9: 250.00] Diagnosis: ESSENTIAL HYPERTENSION[ICD9: 401.9] Diagnosis: ESOPHAGEAL REFLUX[ICD9: 530.81] Eleonora Curran MD [facility] CPT- 4: 94639 12/12/2014 ([id number]) 33037 EST. PATIENT, LEVEL III Diagnosis: ALLERGIC URTICARIA[ICD9: 708.0] Kristan Curran MD, [facility] CPT-4 : 37856 11/22/2014 ([id number]) 05447 EST. PATIENT, LEVEL III Diagnosis: Abdominal pain[ICD9: 789.00] Diagnosis: Status post gastric surgery[ICD9: V45.89] Kristan Curran MD, [facility] CPT-4: 20753 11/14/2014 ([id number]) 87051 EST. PATIENT, LEVEL III Diagnosis: Diabetes mellitus, type II[ICD9: 250.00] Diagnosis: ESSENTIAL HYPERTENSION[ICD9: 401.9] Diagnosis: OBESITY[ICD9: 278.00] Diagnosis: ESOPHAGEAL REFLUX[ICD9: 530.81] Eleonora Curran MD [facility] CPT- 4: 85443 09/04/2014 ([id number]) 06279 EST. PATIENT, LEVEL IV Diagnosis: Diabetes mellitus, type II[ICD9: 250.00] Diagnosis: ESSENTIAL HYPERTENSION[ICD9: 401.9] Diagnosis: OBESITY[ICD9: 278.00] Eleonora Curran MD, [facility] CPT-4: 17840 08/04/2014 ([id number]) 51561 EST. PATIENT, LEVEL IV Diagnosis: Thyroid nodule[ICD9: 241.0] Diagnosis: Decreased renal function[ICD9: 593.9] Diagnosis: Diabetes mellitus, type II[ICD9: 250.00] Talya Curran MD, [facility] CPT-4: 47535 04/11/2014 ([id number]) 24586 EST. PATIENT, LEVEL IV Diagnosis: Chronic diarrhea[ICD9: 787.91] Diagnosis: DM W/O COMPLICATION TYPE II, UNCONTROLLED[ICD9: 250.02] Diagnosis: ESSENTIAL HYPERTENSION[ICD9: 401.9] Talya Curran MD, [facility] CPT-4: 49100 01/05/2014 25119 EST. PATIENT, LEVEL IV Diagnosis: DM W/O COMPLICATION TYPE II, UNCONTROLLED[ICD9: 250.02] Diagnosis: OBESITY[ICD9: 278.00] Diagnosis: Generalized anxiety disorder[ICD9: 300.02] Diagnosis: ESSENTIAL HYPERTENSION[ICD9: 401.9] Eleonora Curran MD, [facility] CPT-4: 94340 10/10/2013 ([id number]) 52671 EST. PATIENT, LEVEL IV Diagnosis: DM W/O COMPLICATION TYPE II, UNCONTROLLED[ICD9: 250.02] Diagnosis: Shoulder pain, right[ICD9: 719.41] Diagnosis: INSOMNIA NOS[ICD9: 780.52] Eleonora Curran MD, [facility] CPT- 4: 46498 08/02/2013 ([id number]) 13522 EST. PATIENT, LEVEL IV Diagnosis: DM W/O COMPLICATION TYPE II, UNCONTROLLED[SNOMED: 92653939] Diagnosis: COUGH[ICD9: 786.2] Diagnosis: MYALGIA AND MYOSITIS[ICD9: 729.1] Eleonora Curran MD, [facility] CPT-4: 96149 06/30/2013 ([id number]) 87631 EST. PATIENT, LEVEL III Diagnosis: DM W/O COMPLICATION TYPE II, UNCONTROLLED[SNOMED: 97179774] Eleonora Curran MD , [facility] CPT-4: 99245 06/20/2013 ([id number]) 14358 EST. PATIENT, LEVEL IV Diagnosis: DM W/O COMPLICATION TYPE II, UNCONTROLLED[SNOMED: 56772759] Eleonora Curran MD , [facility] CPT-4: 27501 06/06/2013 ([id number]) 84156 EST. PATIENT, LEVEL IV Diagnosis: Acute bronchitis[ICD9: 466.0] Diagnosis: Cough[ICD9: 786.2] Diagnosis: Myalgia[ICD9: 729.1] Eleonora Curran MD, [facility] CPT-4: 11427 02/21/2013 34432 EST. PATIENT, LEVEL IV Diagnosis: DM W/O COMPLICATION TYPE II, UNCONTROLLED[SNOMED: 21642619] Diagnosis: OBESITY[ICD9: 278.00] Diagnosis: Dietary counseling and surveillance[ICD9: V65.3] Eleonora Curran MD, [facility] CPT-4: 27328 12/13/2012 ([id number] 81583 EST. PATIENT, LEVEL IV Diagnosis: DM W/O COMPLICATION TYPE II, UNCONTROLLED[SNOMED: 41012042] Diagnosis: HYPERLIPIDEMIA[ICD9: 272.4] Eleonora Curran MD [facility] CPT- 4: 45468 09/23/2012 ([id number] 92768 EST. PATIENT, LEVEL IV Diagnosis: Diabetes mellitus type 2, uncontrolled[SNOMED: 46797975] Diagnosis: Hyperlipidemia[ICD9: 272.4] Diagnosis: ESSENTIAL HYPERTENSION[SNOMED: 84507157] Talya Curran MD, [facility] CPT-4: 50104 06/14/2012 OFFICE VISIT, NEW - LEVEL 3 Diagnosis: Influenza[ICD9: 487.1] Diagnosis: COUGH[ICD9: 786.2] Diagnosis: FEVER NOS[ICD9: 780.60] Diagnosis: Diarrhea[ICD9: 787.91] Diagnosis: Diabetes mellitus, type II[SNOMED: 914394700] Talya Curran MD, [facility] CPT-4: 97293 05/21/2012 Plan of Care Planned Activity Notes [...] lesions. 02/22/2018 Appointment: [phone] (15 min) Moderate 02/22/2018 Patient Education: Patient [...] of control. 01/07/2018 Appointment: [facility] Cr [phone] (15 min) Moderate 01/07/2018 Patient Education: Patient Medication Summary Completed 01/07/2018 Patient Education: Diabetes Completed 01/07/2018 Appointment: [facility] Cr [phone] (15 min) Moderate 12/31/2017 Patient Education: Patient [...] nasal steroid allergy spray. 10/01/2017 Appointment: Tiffanie Cr WPtel: [phone] [facility] (15 min) Moderate 10/01/2017 Patient Education: Patient Medication Summary Completed 10/01/2017 Appointment: Tiffanie Cr WPtel: [phone] [facility]66[facility] (15 min) Moderate 09/07/2017 Visit Plan: Diabetes [...] patient. 06/08/2017 Appointment: Tiffanie Cr WPtel: [phone] [facility] (30 min) Complex 06/08/2017 Patient Education: Patient [...] renal functioning. 11/12/2016 Appointment: Eleonora Curran WPtel: [facility] (15 min) Moderate 11/12/2016 Patient Education: Patient Medication Summary Completed 11/12/2016 Patient Education: Patient Medication Summary Completed 11/12/2016 Appointment: Eleonora Curran WPtel: [phone] [facility] (15 min) Moderate 11/06/2016 Visit Plan: Allergies [...] patient's pharmacy. 09/16/2016 Appointment: Talya Hernandez WPtel: [phone] (10 min) Simple 09/16/2016 Patient Education: Patient Medication Summary Completed 09/16/2016 Care Plan: SCREENINGMAMMOGRAPHYDIGITAL LOINC : 54604-6 Pending 08/16/2016 Visit Plan: Diabetes Mellitus - [...] acute concerns. 08/11/2016 App[facility]ment[phone] [place] (15 min) Moderate 08/11/2016 Patient Education: Patient Medication Summary Completed 08/11/2016 Patient Education: Obesity Completed 08/11/2016 Appointment: [phone] [place] (15 min) Moderate 07/14/2016 Patient Education: Patient Medication Summary Completed 07/04/2016 Care Plan: Cbc With Differential Pending 07/04/2016 Care Plan: Comp Metabolic Pending 07/04/2016 Care Plan: Tsh Pending 07/04/2016 Care Plan: Lipid Pending 07/04/2016 Care Plan: %Hba1C LOINC : 50717-5 Pending 07/04/2016 Care Plan: Free T4 Pending 07/04/2016 Appointment: [phone] [place] (15 min) Moderate 06/16/2016 Appointment: Eleonora Curran WPtel: [phone] [facility] (15 min) Moderate 05/06/2016 Visit Plan: Gastroenteritis - discussed need to stay away from milk products while acutely ill with diarrhea and nausea and emesis as it may worsen the symptoms. Liquids initially until the nausea improves, then recommend to advance to bland diet for 1 day, then advance as tolerated. Call if symptoms not improved. 03/31/2016 Appointment: Talya Hernandez WPtel: [phone] (10 min) Simple 03/31/2016 Patient Education: Patient [...] not improving. 02/01/2016 Appointment: Talya Hernandez WPtel: [phone] (30 min) Complex 02/01/2016 Patient Education: Patient Medication Summary Completed 02/01/2016 Visit Plan: Bronchitis - acute case of bronchitis identified. Pt has been given antibiotics, breathing treatments as appropriate, and pt has been instructed to call if symptoms are not improved, or if symptoms acutely worsen. 01/22/2016 Appointment: Talya Hernandez WPtel: [phone] (15 min) Moderate 01/22/2016 Patient Education: Patient [...] to monitor 01/07/2016 Appointment: Eleonora Curran WPtel: [phone] [facility] (15 min) Moderate 01/07/2016 Patient Education: Patient [...] victoza stopped 09/17/2015 Appointment: [phone] (15 min) Moderate 09/17/2015 Patient Education: Patient [...] Hypertension Completed 05/29/2015 Appointment: Eleonora Curran WPtel: [facility] (15 min) Moderate 05/22/2015 Appointment: (15 min) [...] on previous levels of control. 12/12/2014 Appointment: [facility]el[phone] [facility] (15 min) Moderate 12/12/2014 Patient Education: Patient Medication Summary Completed 12/12/2014 Patient Education: Hypertension Completed 12/12/2014 Appointment: David T[facility]a [facility]el[phone] Follow up 11/28/2014 Patient Education: Patient Medication [...] glucose readings are starting to become less controlled.michaela sample - [id number] exp 02/2016 novonordisk Hypertension - well controlled - continue with current medications, continue with no added salt diet. Pt has been encouraged to exercise daily. The pt has been advised to call the office if there are any acute concerns about change in blood pressure readings at home. 09/04/2014 Appointment: [facility] Curran [facility]Ptel[phone] [facility] Follow up 09/04/2014 Patient Education: Patient Medication Summary Completed 09/04/2014 Patient Education: Hypertension Completed 09/04/2014 Care Plan: Referral Order SNOMED-CT : [id number] Ordered 09/04/2014 Visit Plan: Hypertension - well [...] stop metformin 08/04/2014 Appointment: [facility]Ptel[phone] [facility] Follow up 08/04/2014 Patient Education: Patient Medication Summary Completed 08/04/2014 Patient Education: Hypertension Completed 08/04/2014 Visit Plan: Thyroid nodules-nodule on left lobe has increased in size-biopsy scheduled for Decrease renal function- secondary to dehydration-repeat labs-maintain adequate oral intake-follow up with [facility] as scheduled DM-hgb a1c improved-continue with same [...] Summary Completed 01/05/2014 Appointment: [facility] Cur[facility]Ptel[facility] [phone] [facility] Follow up 01/03/2014 Visit Plan: Diabetes Mellitus [...] to relax. 10/10/2013 Appointment: [facility]Ptel[facility] [phone] [facility] Follow up 10/10/2013 Patient Education: Patient Medication Summary Completed 10/10/2013 Patient Education: Hypertension Completed 10/10/2013 Appointment: [facility] Curran [facility]Ptel: [address] [facility] Follow up 09/13/2013 Appointment: Eleonora Curran WPtel: [phone] [facility] Follow up 08/03/2013 Visit Plan: Diabetes Mellitus [...] treatment options. 08/02/2013 Appointment: Eleonora Curran WPtel: [facility] Follow up 08/02/2013 Patient Education: Patient Medication [...] urgent care. 06/30/2013 Appointment: Eleonora Curran WPtel: [phone] [facility] [facility] 06/30/2013 Patient Education: Patient Medication Summary Completed [...] patient today. 06/20/2013 Appointment: Eleonora Curran WPtel: [phone] [facility] Diabetic education 06/20/2013 Patient Education: Patient Medication Summary Completed 06/20/2013 Appointment: Eleonora Curran WPtel: [phone] [facility] Follow up 06/13/2013 Visit Plan: Shoulder pain [...] than before her acute bronchitis. 02/21/2013 Appointment: El[facility]enora Curran [facility]Ptel[phone] S[facility] 02/21/2013 Patient Education: Patient Medication Summary [...] 3 months. 12/13/2012 Appointment: [facility]Ptel[facility] [phone] [facility] Follow up 12/13/2012 Patient Education: Patient Medication Summary Completed 12/13/2012 Patient Education: .Amazing charts Diabetic meal planning guide Completed 12/13 Visit [...] medications. 09/23/2012 Appointment: [facility] Curran [facility]Ptel[phone] [facility] Follow up 09/23/2012 Patient Education: Patient Medication [...] at home. 06/14/2012 Appointment: [facility] Hernandez [facility]el[phone] [facility] Follow up 06/14/2012 Patient Education: Patient Medication Summary Completed 06/14/2012 Patient Education: Hypertension Completed 06/14/2012 Visit Plan: Kfsyz-bsena-kuvj aches-suspect influenza- patient no indication for tamiflu [...] less controlled. 05/21/2012 Appointment: Talya Hernandez WPtel: [address] [place] [address] New Patient 05/21/2012 Patient Education: Patient Medication [...] to uncontrolled pain - I have advised yKlee that we need to try to control [...] starting to become less controlled.victoza sample - [id number] exp 02/2016 novonordisk Hypertension - well controlled [...] in 3 months. I SENT ZITHROMAX TO [facility]-2 PILLS TODAY AND THEN 1 PILL DAILY UNTIL GONE. I ALSO SENT A PRESCRIPTION FOR DIFLUCAN FOR A YEAST INFECTION. Recommend PROBIOTIC twice daily-lactobacillus. START TODAY. [facility] Culturelle Align IF THE DIARRHEA PERSISTS OR WORSENS, START FLAGYL 500MG THREE TIMES DAILY-I SENT IT TO [facility]. I will call phenergan with codeine cough syrup to [facility]. Okay to take 5- 10ml every 6 hours as needed for cough. . Yqwit-rpttc-tlsz aches-suspect influenza-patient no indication for tamiflu due [...] control. Trulicity started - victoza stopped Plan: ([id number]) FLU VAC NO PRSV 4 SHAKILA 3 [...] dehydration-repeat labs-maintain adequate oral intake-follow up with [facility] as scheduled DM-hgb a1c improved-continue with same [...]
--- OUTSIDE RECORDS SUMMARY | 2018-03-09 06:38 | XMS REPORT | CCD ---
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 Unknown Has never used illegal drugs 05/21/2012 Allergies, Adverse Reactions, Alerts Substance Reaction Codes Entered Date Inactivated Date Status * NO KNOWN ENVIRONMENTAL ALLERGIES Unknown 05/21/2012 No Inactive Date Active * NO KNOWN FOOD ALLERGIES Unknown 05/21/2012 No Inactive Date Active ciprofloxacin hives RxNorm: 49731 11/22/2014 No Inactive Date Active PNEUMOCOCCAL VACCINE [...] Fill Instructions amoxicillin 500 mg capsule RxNorm: 256187 1 Capsule(s) PO TID 02/22/2018 02/28/2018 Active Prozac 20 mg capsule RxNorm: 109249 1 Capsule(s) PO daily 02/2203/23/2018 Active Diflucan 150 mg tablet RxNorm: 017784 1 Tablet(s) PO daily 02/26/2018 Active Kenalog 40 mg/mL suspension for injection RxNorm: 6626805 Milliliter(s) Inj 02/22/2018 02/22/2018 Inactive levothyroxine 88 mcg tablet RxNorm: 858889 TAKE 1 TABLET BY MOUTH ONCE DAILY 02/15/2018 No Stop Date Active Cymbalta 60 mg capsule,delayed release RxNorm: 781559 TAKE 1 CAPSULE BY MOUTH ONCE DAILY 02/15/2018 No Stop Date Active Diflucan 150 mg tablet RxNorm: 886591 1 Tablet(s) PO daily No Stop Date Active Xultophy 100/3.6 100 unit-3.6 mg/mL (3 mL) subcutaneous insulin pen RxNorm: 5356709 30 Unit(s) SQ daily 01/07/20182017 Inactive Xultophy 100/3.6 100 unit-3.6 mg/mL (3 mL) subcutaneous insulin pen RxNorm: 5261344 22 Unit(s) SQ daily 12/03/20172017 Inactive Xultophy 100/3.6 100 unit-3.6 mg/mL (3 mL) subcutaneous insulin pen RxNorm: 4058603 20 Unit(s) SQ daily 11/27/20172017 Inactive Xultophy 100/3.6 100 unit-3.6 mg/mL (3 mL) subcutaneous insulin pen RxNorm: 7102196 20 Unit(s) SQ daily 11/27/20172017 Inactive Xultophy 100/3.6 100 unit-3.6 mg/mL (3 mL) subcutaneous insulin pen RxNorm: 0001498 16 Unit(s) SQ daily 10/26/20172017 Inactive Xultophy 100/3.6 100 unit-3.6 mg/mL (3 mL) subcutaneous insulin pen RxNorm: 7969040 16 Unit(s) SQ daily 10/26/20172017 Inactive potassium chloride ER 10 mEq tablet,extended release RxNorm: 600103 1 Tablet(s) PO TIW 10/21/2017 10/15/2018 Active Diflucan 150 mg tablet RxNorm: 978908 TAKE ONE TABLET BY MOUTH ONCE DAILY 10/21/2017 01/06/2018 Inactive Cymbalta 60 mg capsule,delayed release RxNorm: 930847 1 Capsule(s) PO daily 10/07/2017 02/03/2018 Inactive potassium chloride ER 10 mEq tablet,extended release RxNorm: 238424 TAKE ONE TABLET BY MOUTH TWICE A WEEK 10/07/2017 Inactive Lipitor 20 mg tablet RxNorm: 772931 TAKE ONE TABLET BY MOUTH ONCE DAILY IN THE EVENING 09/04/2017 No Stop Date Active metoprolol succinate ER 50 mg tablet,extended release 24 hr RxNorm: 198770 TAKE ONE TABLET BY MOUTH ONCE DAILY 09/04/2017 No Stop Date Active Victoza 3-To 0.6 mg/0.1 mL (18 mg/3 mL) subcutaneous pen injector RxNorm: 367325 Milligram(s) SQ 09/02/2017 05/24/2019 Active Diflucan 150 mg tablet RxNorm: 949818 TAKE ONE TABLET BY MOUTH ONCE DAILY 09/02/2017 10/20/2017 Inactive potassium chloride ER 10 mEq tablet,extended release RxNorm: 979196 TAKE ONE TABLET BY MOUTH TWICE A WEEK 08/10/2017 Inactive levothyroxine 88 mcg tablet RxNorm: 082591 TAKE ONE TABLET BY MOUTH ONCE DAILY 08/10/2017 02/14/2018 Inactive Diflucan 150 mg tablet RxNorm: 672125 1 Tablet(s) PO daily 07/20/2017 Inactive Diflucan 150 mg tablet RxNorm: 991977 1 Tablet(s) PO daily 07/09/2017 Inactive Cymbalta 60 mg capsule,delayed release RxNorm: 889471 1 Capsule(s) PO daily 07/10/2017 07/09/2017 Inactive Cymbalta 60 mg capsule,delayed release RxNorm: 502947 1 Capsule(s) PO daily 07/10/2017 10/06/2017 Inactive Diflucan 150 mg tablet RxNorm: 189093 1 Tablet(s) PO daily 07/14/2017 Inactive Wellbutrin XL 150 mg 24 hr tablet, extended release RxNorm: 266918 1 Tablet(s) PO daily 06/08/2017 07/09/2017 Inactive Victoza 3-To 0.6 mg/0.1 mL (18 mg/3 mL) subcutaneous pen injector RxNorm: 281996 Milligram(s) SQ 06/08/2017 09/01/2017 Inactive Initiate at 0.6 mg per day for one week then increase to 1.2 mg. Dispense qty sufficient hydrochlorothiazide 25 mg tablet RxNorm: 814357 TAKE ONE TABLET BY MOUTH ONCE DAILY 05/25/2017 No Stop Date Active citalopram 40 mg tablet RxNorm: 577224 TAKE ONE TABLET BY MOUTH ONCE DAILY 05/13/2017 07/09/2017 Inactive potassium chloride ER 10 mEq tablet,extended release RxNorm: 840095 TAKE ONE TABLET BY MOUTH TWICE A WEEK 03/25/2017 Inactive hydrochlorothiazide 25 mg tablet RxNorm: 553483 TAKE ONE TABLET BY MOUTH ONCE DAILY 02/23/2017 05/24/2017 Inactive levothyroxine 88 mcg tablet RxNorm: 798612 TAKE ONE TABLET BY MOUTH ONCE DAILY 01/28/2017 07/26/2017 Inactive Trulicity 1.5 mg/0.5 mL subcutaneous pen injector RxNorm: 2601931 INJECT ONE SYRINGE SUBCUTANEOUSLY ONCE A WEEK 01/27/2017 07/09/2017 Inactive Diflucan 150 mg tablet RxNorm: 557718 1 Tablet(s) PO daily 12/31/2016 Inactive Invokana 100 mg tablet RxNorm: 7839033 1 Tablet(s) PO daily 11/201602/03/2017 Inactive Invokana 100 mg tablet RxNorm: 4549411 1 Tablet(s) PO daily 11/201612/01/2016 Inactive potassium chloride ER 10 mEq tablet,extended release RxNorm: 436048 1 Tablet(s) PO BIW 11/17/2016 11/16/2016 Inactive metformin 500 mg tablet RxNorm: 823843 1 Tablet(s) PO BID 11/1712/01/2016 Inactive potassium chloride ER 10 mEq tablet,extended release RxNorm: 934928 1 Tablet(s) PO BIW 11/17/2016 11/16/2016 Inactive potassium chloride ER 10 mEq tablet,extended release RxNorm: 417635 1 Tablet(s) PO 2 times weekly 11/17/2016 10/06/2017 Inactive Diflucan 150 mg tablet RxNorm: 269143 1 Tablet(s) PO daily 09/18/2016 Inactive Diflucan 150 mg tablet RxNorm: 074203 1 Tablet(s) PO daily 09/23/2016 Inactive amoxicillin 500 mg tablet RxNorm: 824361 1 Tablet(s) PO BID 09/25/2016 Inactive metoprolol succinate ER 50 mg tablet,extended release 24 hr RxNorm: 521321 Tablet (s) TAKE ONE TABLET BY MOUTH ONCE DAILY 08/11/2016 08/05/2017 Inactive Lipitor 20 mg tablet RxNorm: 275270 1 Tablet(s) PO QPM 201609/03/2017 Inactive Questran Light 4 gram oral powder RxNorm: 6067845 1 PO TID 05/25/2017 Inactive Trulicity 1.5 mg/0.5 mL subcutaneous pen injector RxNorm: 7289385 0.5 Milliliter(s ) SQ QW 08/11/2016 01/07/2017 Inactive levothyroxine 88 mcg tablet RxNorm: 064164 TAKE ONE TABLET BY MOUTH ONCE DAILY 07/28/2016 01/23/2017 Inactive Trulicity 0.75 mg/0.5 mL subcutaneous pen injector RxNorm: 4857000 INJECT THREE- FOURTHS MG(S) SUBCUTANEOUSLY ONCE A WEEK 07/01/2016 08/10/2016 Inactive metoprolol succinate ER 50 mg tablet,extended release 24 hr RxNorm: 650235 TAKE ONE TABLET BY MOUTH ONCE DAILY 06/11/2016 08/09/2016 Inactive citalopram 40 mg tablet RxNorm: 277554 TAKE ONE TABLET BY MOUTH ONCE DAILY 04/14/2016 05/12/2017 Inactive Diflucan 150 mg tablet RxNorm: 803914 1 Tablet(s) PO daily 01/24/2016 Inactive hydrochlorothiazide 25 mg tablet RxNorm: 404812 Tablet(s) 1 TABLET(S) PO DAILY 01/25/2016 01/18/2017 Inactive Diflucan 150 mg tablet RxNorm: 482428 1 Tablet(s) PO daily 01/31/2016 Inactive Zithromax Z-To 250 mg tablet RxNorm: 913404 1 Tablet(s) PO daily 01/24/2016 01/23/2016 Inactive zpack Zithromax Z-To 250 mg tablet RxNorm: 660026 1 Tablet(s) PO daily 01/24/2016 01/28/2016 Inactive zpack prednisone 10 mg tablets in a dose pack RxNorm: 408082 1 Tablet(s) PO as directed 01/24/2016 01/31/2016 Inactive 6-5-4-3-2-1 Kenalog 40 mg/mL suspension for injection RxNorm: 6936694 Milliliter(s) Inj 01/22/2016 01/22/2016 Inactive prednisone 20 mg tablet RxNorm: 000082 2 Tablet(s) PO daily 01/24/2016 Inactive start tomorrow Trulicity 0.75 mg/0.5 mL subcutaneous pen injector RxNorm: 4333494 0.75 Milligram( s) SQ QW 01/18/2016 06/30/2016 Inactive levothyroxine 88 mcg tablet RxNorm: 536082 TAKE ONE TABLET BY MOUTH ONCE DAILY 01/17/2016 07/14/2016 Inactive Trulicity 0.75 mg/0.5 mL subcutaneous pen injector RxNorm: 0556390 0.75 Milligram( s) SQ QW 12/03/2015 01/01/2016 Inactive Vimovo 500 mg-20 mg tablet,immediate and delay release RxNorm: 734914 1 Tablet(s) PO BID 12/03/2015 03/30/2016 Inactive metoprolol succinate ER 50 mg tablet,extended release 24 hr RxNorm: 641518 1 Tablet(s) PO daily 10/23/2015 05/19/2016 Inactive Trulicity 0.75 mg/0.5 mL subcutaneous pen injector RxNorm: 0955347 0.75 Milligram( s) SQ QW 09/17/2015 10/16/2015 Inactive Victoza 3-To 0.6 mg/0.1 mL (18 mg/3 mL) subcutaneous pen injector RxNorm: 058278 1.8 MILLIGRAM(S) SQ DAILY 07/16/201509/15 Inactive this is just a correction of her current dosing - she does not need a refill levothyroxine 88 mcg tablet RxNorm: 355046 1 TABLET(S) PO DAILY 07/16/2015 01/11/2016 Inactive metoprolol succinate ER 50 mg tablet,extended release 24 hr RxNorm: 224766 1 Tablet(s) PO daily 05/29/2015 10/22/2015 Inactive levothyroxine 88 mcg tablet RxNorm: 168384 1 Tablet(s) PO daily 04/17/2015 07/15/2015 Inactive levothyroxine 88 mcg tablet RxNorm: 018389 1 Tablet(s) PO daily 04/17/2015 04/16/2015 Inactive citalopram 40 mg tablet RxNorm: 525947 1 Tablet(s) PO daily 04/13/2016 Inactive metoprolol tartrate 25 mg tablet RxNorm: 087179 1 Tablet(s) BID 01/17/2015 05/28/2015 Inactive hydrochlorothiazide 25 mg tablet RxNorm: 897362 1 TABLET(S) PO DAILY 01/01/2015 12/26/2015 Inactive Kenalog 40 mg/mL suspension for injection RxNorm: 9782560 Milliliter(s) Inj 11/23/2014 11/23/2014 Inactive Kenalog 40 mg/mL suspension for injection RxNorm: 2624282 60 Milliliter(s) Inj 11/22/2014 11/22/2014 Inactive Zyrtec 10 mg tablet RxNorm: 4285915 1 Tablet(s) PO daily 11/2212/21/2014 Inactive prednisone 10 mg tablets in a dose pack RxNorm: 957543 1 Tablet(s) PO as directed 11/22/2014 05/28/2015 Inactive 6-5-4-3-2-1 Flagyl 500 mg tablet RxNorm: 890895 1 Tablet(s) PO TID 201411/20/2014 Inactive metoprolol tartrate 25 mg tablet RxNorm: 376840 1 Tablet(s) PO BID 09/06/2014 08/10/2016 Inactive metoprolol tartrate 25 mg tablet RxNorm: 524201 1 TABLET(S) PO BID PT TO START WITH 1/2 PILL TWICE DAILY X 1 WEEK, THEN INCREASE TO 1 PILL BID THEREAFTER 09/06/2014 01/16/2015 Inactive citalopram 20 mg tablet RxNorm: 362877 1 Tablet(s) PO daily 02/201503/13/2015 Inactive Victoza 3-To 0.6 mg/0.1 mL (18 mg/3 mL) subcutaneous pen injector RxNorm: 498056 1.8 MILLIGRAM(S) SQ DAILY 09/04/201405/31 Inactive this is just a correction of her current dosing - she does not need a refill metoprolol tartrate 25 mg tablet RxNorm: 462764 1 Tablet(s) PO BID pt to start with 1/2 pill twice daily x 1 week, then increase to 1 pill bid thereafter 08/04/2014 09/02/2014 Inactive Lantus Solostar 100 unit/mL (3 mL) subcutaneous insulin pen RxNorm: 662587 Unit( s) INJECT 10 UNITS SUBCUTANEOUSLY DAILY. DOCTOR WILL ADJUST MEDICATION BASED ON BLOOD GLUCOSE LEVELS 08/04/20142014 Inactive hydrochlorothiazide 25 mg tablet RxNorm: 740633 1 TABLET(S) PO DAILY 07/12/2014 01/24/2016 Inactive hydrochlorothiazide 25 mg tablet RxNorm: 720058 1 Tablet(s) PO daily 07/12/2014 12/31/2014 Inactive acyclovir 400 mg tablet RxNorm: 569482 1 Tablet(s) PO QID 05/0905/08/2014 Inactive acyclovir 400 mg tablet RxNorm: 332782 1 Tablet(s) PO QID 05/0905/15/2014 Inactive alprazolam 0.25 mg tablet RxNorm: 060874 TAKE 1 TABLET BY MOUTH TWICE DAILY NEEDED FOR ANXIETY 04/24/2014 05/23/2014 Inactive (Response to an electronic controlled substance refill request - RxReferenceNumber: [id number]|0|1) metoprolol succinate ER 100 mg tablet,extended release 24 hr RxNorm: 124517 1 TABLET(S) PO DAILY TAKE 1 TABLET BY MOUTH DAILY 04/24/2014 08/03/2014 Inactive Cardizem LA 360 mg tablet,extended release RxNorm: 699771 1 TABLET(S) PO DAILY TAKE 1 TABLET BY MOUTH DAILY 04/24/2014 Inactive metformin ER 500 mg 24 hr tablet,extended release RxNorm: 447243 1 Tablet(s) PO daily 04/11/2014 08/03/2014 Inactive Lantus Solostar 100 unit/mL (3 mL) subcutaneous insulin pen RxNorm: 868161 INJECT 40 UNITS SUBCUTANEOUSLY DAILY. DOCTOR WILL ADJUST MEDICATION BASED ON BLOOD GLUCOSE LEVELS 03/20/20142014 Inactive Bentyl 10 mg capsule RxNorm: 015992 1 Capsule(s) PO TID PRN 02/201405/28/2015 Inactive potassium chloride ER 10 mEq tablet,extended release RxNorm: 116783 1 Tablet(s) PO daily 01/05/2014 01/11/2014 Inactive Lantus Solostar 100 unit/mL (3 mL) subcutaneous insulin pen RxNorm: 955400 45 Unit(s) SQ daily doctor to adjust medications based on blood glucose results 01/05/2014 12/02/2015 Inactive Diovan 320 mg tablet RxNorm: 704366 1 Tablet(s) PO daily 201308/03/2014 Inactive metformin ER 1,000 mg tablet,extended release 24hr RxNorm: 635061 1 Tablet(s) PO daily 10/26/2013 04/10/2014 Inactive Lantus Solostar 100 unit/mL (3 mL) subcutaneous insulin pen RxNorm: 223103 40 Unit(s) SQ daily doctor to adjust medications based on blood glucose results 10/10/2013 01/04/2014 Inactive alprazolam 0.25 mg tablet RxNorm: 360959 1 Tablet(s) PO BID 04/24/2014 Inactive Percocet 5 mg-325 mg tablet RxNorm: 5418602 1-2 Tablet(s) PO Q6 PRN 10/03/2013 05/28/2015 Inactive Celexa 40 mg tablet RxNorm: 810706 Tablet(s) PO TAKE 1 TABLET BY MOUTH DAILY 09/28/2013 09/03/2014 Inactive hydrochlorothiazide 25 mg tablet RxNorm: 316133 1 Tablet(s) PO daily 09/22/2013 06/18/2014 Inactive Lantus Solostar 100 unit/mL (3 mL) subcutaneous insulin pen RxNorm: 781273 35 Unit(s) SQ daily doctor to adjust medications based on blood glucose results 08/02/2013 10/09/2013 Inactive Cardizem LA 360 mg tablet,extended release RxNorm: 842389 1 Tablet(s) PO daily TAKE 1 TABLET BY MOUTH DAILY 07/18/2013 Inactive Cardizem LA 360 mg tablet,extended release RxNorm: 610460 Tablet(s) PO TAKE 1 TABLET BY MOUTH DAILY 07/18/20132014 Inactive metoprolol succinate ER 100 mg tablet,extended release 24 hr RxNorm: 277321 1 Tablet(s) PO daily TAKE 1 TABLET BY MOUTH DAILY 07/18/2013 04/13/2014 Inactive metoprolol succinate ER 100 mg tablet,extended release 24 hr RxNorm: 464445 Tablet (s) PO TAKE 1 TABLET BY MOUTH DAILY 07/18/2013 08/03/2014 Inactive Lantus Solostar 100 unit/mL (3 mL) subcutaneous insulin pen RxNorm: 968622 30 Unit(s) SQ daily doctor to adjust medications based on blood glucose results 07/04/2013 08/01/2013 Inactive Victoza 3-To 0.6 mg/0.1 mL (18 mg/3 mL) subcutaneous pen injector RxNorm: 537193 1.8 Milligram(s) SQ daily 06/30/201303/26 Inactive this is just a correction of her current dosing - she does not need a refill metformin ER 1,000 mg tablet,extended release 24hr RxNorm: 046409 1 Tablet(s) PO daily 06/30/2013 10/25/2013 Inactive Lantus Solostar 100 unit/mL (3 mL) subcutaneous insulin pen RxNorm: 431890 20 Unit(s) SQ daily doctor to adjust medications based on blood glucose results 06/30/2013 07/03/2013 Inactive Lantus Solostar 100 unit/mL (3 mL) subcutaneous insulin pen RxNorm: 566385 15 Unit(s) SQ daily doctor to adjust medications based on blood glucose results 06/23/2013 06/29/2013 Inactive Victoza 3-To 0.6 mg/0.1 mL (18 mg/3 mL) subcutaneous pen injector RxNorm: 673882 3mg Milliliter(s) SQ daily 90 days worth 06/20/2013 06/29/2013 Inactive hydrochlorothiazide 25 mg tablet RxNorm: 844599 1 Tablet(s) PO daily 06/13/2013 09/21/2013 Inactive ketorolac 60 mg/2 mL intramuscular solution RxNorm: 687351 2 Milliliter(s) IM 06/06/2013 06/06/2013 Inactive Lantus Solostar 100 unit/mL (3 mL) subcutaneous insulin pen RxNorm: 052624 10 Unit(s) SQ daily doctor to adjust medications based on blood glucose results 06/06/2013 06/22/2013 Inactive naproxen 500 mg tablet RxNorm: 681777 1 Tablet(s) PO BID 201308/04/2013 Inactive hydrochlorothiazide 25 mg tablet RxNorm: 017251 1 Tablet(s) PO daily 06/06/2013 06/12/2013 Inactive Victoza 3-To 0.6 mg/0.1 mL (18 mg/3 mL) subcutaneous pen injector RxNorm: 587067 3mg Milliliter(s) SQ daily 90 days worth 05/19/2013 06/19/2013 Inactive Diflucan 150 mg tablet RxNorm: 461588 1 Tablet(s) PO daily 05/12/2013 Inactive Diflucan 150 mg tablet RxNorm: 150309 1 Tablet(s) PO daily 05/19/2013 Inactive Cardizem LA 360 mg tablet,extended release RxNorm: 813679 Tablet(s) PO TAKE 1 TABLET BY MOUTH DAILY 04/22/20132013 Inactive metoprolol succinate ER 100 mg tablet,extended release 24 hr RxNorm: 219968 Tablet (s) PO TAKE 1 TABLET BY MOUTH DAILY 04/14/2013 07/17/2013 Inactive Diflucan 150 mg tablet RxNorm: 758704 1 Tablet(s) PO daily 03/28/2013 Inactive Diflucan 150 mg tablet RxNorm: 922706 1 Tablet(s) PO daily 03/21/2013 Inactive Diovan 320 mg tablet RxNorm: 973498 1 Tablet(s) PO daily 201212/09/2013 Inactive cefdinir 300 mg capsule RxNorm: 526614 1 Capsule(s) PO BID 02/25/2013 Inactive Phenergan with Codeine Syrup RxNorm: 5-10 Milliliter(s) PO Q6 PRN USE PRN FOR COUGH 02/21/2013 03/20/2013 Inactive 8 OUNCES Victoza 3-To 0.6 mg/0.1 mL (18 mg/3 mL) subcutaneous pen injector RxNorm: 462146 3mg Milliliter(s) SQ daily 90 days worth 12/09/2012 03/08/2013 Inactive scopolamine 1.5 mg transdermal 72 hour patch RxNorm: 914664 1 Patch TD Q72H 10/26/2012 01/04/2014 Inactive scopolamine 1.5 mg 72 hr Transderm Patch RxNorm: 262080 1 Patch TD Q72H 10/26/2012 10/25/2012 Inactive metformin ER 1,000 mg tablet,extended release 24hr RxNorm: 129032 1 Tablet(s) PO BID 10/11/2012 06/29/2013 Inactive Victoza 3-To 0.6 mg/0.1 mL (18 mg/3 mL) Sub-Q Pen Injector RxNorm: 953634 1.8 Milliliter(s) SQ daily 1.8 mg dose daily 09/23/2012 12/08/2012 Inactive Victoza 3-To 0.6 mg/0.1 mL (18 mg/3 mL) Sub-Q Pen Injector RxNorm: 853810 3.0 Milliliter(s) SQ daily 1.2 + 1.8 mg dose daily 201209/22/2012 Inactive Celexa 40 mg tablet RxNorm: 631812 1 Tablet(s) PO daily TAKE ONE TABLET BY MOUTH DAILY 09/21/2012 05/18/2013 Inactive Cardizem LA 360 mg tablet,extended release RxNorm: 826733 1 Tablet(s) PO daily 07/20/2012 04/15/2013 Inactive metoprolol succinate ER 100 mg tablet,extended release 24 hr RxNorm: 916797 1 Tablet(s) PO daily 07/20/2012 04/13/2013 Inactive Byetta 10 mcg/0.04 mL per dose Sub-Q Pen Injector RxNorm: 900629 1 Milliliter(s) SQ BID 06/18/2012 09/22/2012 Inactive Diovan 320 mg tablet RxNorm: 631088 1 Tablet(s) PO daily 201203/14/2013 Inactive metformin ER 1,000 mg tablet,extended release 24hr RxNorm: 639078 1 Tablet(s) PO BID 06/14/2012 09/11/2012 Inactive metformin ER 1,000 mg tablet,extended release 24hr RxNorm: 568071 1 Tablet(s) PO 06/14/2012 06/13/2012 Inactive Livalo 4 mg tablet RxNorm: 391142 1 Tablet(s) PO daily 201201/04/2014 Inactive Celexa 40 mg tablet RxNorm: 857528 1 Tablet(s) PO daily 201209/21/2012 Inactive Accu-Chek Instant Glucose Test Strips RxNorm: 1 Miscellaneous daily accucheck ratna glucometer 05/21/2012 06/14/2013 Inactive Diflucan 150 mg tablet RxNorm: 934305 1 Tablet(s) PO daily 05/26/2012 Inactive Flagyl 500 mg tablet RxNorm: 979783 1 Tablet(s) PO TID 201205/27/2012 Inactive Minivelle 0.0375 mg/24 hr transdermal patch RxNorm: 6682984 1 Patch TD BIW No Start Date Active aspirin 81 mg tablet RxNorm: 262706 1 Tablet(s) PO daily No Start Date Active Cardizem LA 360 mg tablet,extended release RxNorm: 432706 1 Tablet(s) PO daily No Start Date 07/19/2012 Inactive metformin ER 750 mg tablet,extended release 24 hr RxNorm: 820158 1 Tablet(s) PO TID No Start Date 06/13/2012 Inactive Zithromax Z-To 250 mg tablet RxNorm: 621299 Tablet(s) PO No Start Date 06/13/2012 Inactive Diovan 320 mg tablet RxNorm: 014231 1 Tablet(s) PO daily No Start Date 06/17/2012 Inactive Byetta 10 mcg/0.04 mL per dose Sub-Q Pen Injector RxNorm: 765058 1 Milliliter(s) SQ BID No Start Date 06/17/2012 Inactive Vivelle 0.05 mg/24 hr Transderm Patch RxNorm: 089306 1 Patch TD [id number] No Start Date 12/03/2015 Inactive Fish Oil 1,000 mg capsule RxNorm: 1 Capsule(s) PO BID No Start Date 05/29/2015 Inactive Celexa 40 mg tablet RxNorm: 764677 1 Tablet(s) PO daily No Start Date 06/09/2012 Inactive levothyroxine 100 mcg tablet RxNorm: 489749 1 Tablet(s) PO daily No Start Date 04/16/2015 Inactive Fish Oil 1,000 mg capsule RxNorm: 1 Capsule(s) PO daily No Start Date 12/02/2015 Inactive Vitamin B-12 1,000 mcg/mL oral drops RxNorm: 7669121 1 Milliliter(s) PO daily No Start Date 12/02/2015 Inactive metoprolol succinate ER 100 mg tablet,extended release 24 hr RxNorm: 213534 1 Tablet(s) PO daily No Start Date 2012 Inactive promethazine-codeine 6.25 mg-10 mg/5 mL Syrup RxNorm: 197287 5-10 Milliliter(s) PO Q6 PRN No Start Date 12/12/2012 Inactive Percocet 5 mg-325 mg tablet RxNorm: 9342349 1-2 Tablet(s) PO Q6 PRN No Start Date 10/02/2013 Inactive hydrochlorothiazide 25 mg tablet RxNorm: 992423 1 Tablet(s) PO daily No Start Date 06/05/2013 Inactive Victoza 2-To 0.6 mg/0.1 mL (18 mg/3 mL) subcutaneous pen injector RxNorm: 007440 Milligram(s) SQ 1.8mg daily No Start Date 09/13/2013 Inactive Livalo 4 mg tablet RxNorm: 010685 1 Tablet(s) PO daily No Start Date 06/09/2012 Inactive Medication Administered Medication Codes Instructions Start Date Status Kenalog 40 mg/mL suspension for injection RxNorm: 1925690 Milliliter 02/22/2018 No longer Active Kenalog 40 mg/mL suspension for injection RxNorm: 7988743 Milliliter 01/22/2016 No longer Active Kenalog 40 mg/mL suspension for injection RxNorm: 7592447 Milliliter 11/23/2014 No longer Active Kenalog 40 mg/mL suspension for injection RxNorm: 7328742 Milliliter 11/22/2014 No longer Active ketorolac 60 mg/2 mL intramuscular solution RxNorm: 632509 2Milliliter 06/06/2013 No longer Active Immunizations Vaccine [...] 29.5 pg 01/05/2018 Cbc With Differential Ord2 [place]% 5.5 % 01/05/2018 Cbc With Differential Ord2 [...] 1.46 K/ul 01/05/2018 Cbc With Differential Ord2 [place] ABS# 0.5 K/ul 01/05/2018 Cbc With Differential Ord2 Eos ABS# 0.2 K/ul 01/05/2018 Cbc With Differential Ord2 Baso ABS# 0.1 K/ul 01/05/2018 Free T4 Oqs884 FREE T4 0.92 ng/dL 01/05/2018 Lipid Ord30 CHOL 200 mg/dL 01/05/2018 Lipid Ord30 HDL 48.0 mg/dl 01/05/2018 Lipid Ord30 TRIG 143 mg/dL 01/05/2018 Lipid Ord30 LDL 123 mg/dL 01/05/2018 Lipid Ord30 C/HDL 4.2 Ratio 01/05/2018 Comp Metabolic Qkx995 NA 142 mEq/L 01/05/2018 Comp Metabolic Adg206 K 3.9 mEq/L 01/05/2018 Comp Metabolic Fhn765 CL 99 mEq/L 01/05/2018 Comp Metabolic Qfg473 CO2 34.0 mEq/L 01/05/2018 Comp Metabolic Uso807 ANION GAP 13 01/05/2018 Comp Metabolic Kcw320 GLUCOSE 205 mg/dL 01/05/2018 Comp Metabolic Bpd997 Creat 1.0 mg/dL 01/05/2018 Comp Metabolic Lwk413 eGFR 65 ml/min/1.73m2 01/05/2018 Comp Metabolic Kod832 BUN 12 mg/dL 01/05/2018 Comp Metabolic Tzw637 B/C Ratio 12.6 Ratio 01/05/2018 Comp Metabolic Xpd962 CALCIUM 9.5 mg/dL 01/05/2018 Comp Metabolic Byi944 ALK PHOS 150 U/L 01/05/2018 Comp Metabolic Vnf909 AST(SGOT) 16 U/L 01/05/2018 Comp Metabolic Cck689 ALT(SGPT) 15 U/L 01/05/2018 Comp Metabolic Imw463 BILI T 0.6 mg/dL 01/05/2018 Comp Metabolic Lsi622 ALBUMIN 3.9 g/dL 01/05/2018 Comp Metabolic Stu170 TPRO 6.6 g/dL 01/05/2018 Comp Metabolic Btn928 GLOB 2.7 g/dL 01/05/2018 Comp Metabolic Dbf516 A/G Ratio 1.5 Ratio 01/05/2018 Comp Metabolic Zgb098 Osmo 289 mOsmo 01/05/2018 %Hba1C Eor191 % HbA1c 86476-8 10.9 % 01/05/2018 %Hba1C Xfp933 Gluc Ave 266 mg/dL 01/05/2018 Lipid Ord30 [...] 30.3 pg 09/29/2017 Cbc With Differential Ord2 [place]% 5.5 % 09/29/2017 Cbc With Differential Ord2 [...] 1.39 K/ul 09/29/2017 Cbc With Differential Ord2 [place] ABS# 0.6 K/ul 09/29/2017 Cbc With Differential Ord2 Eos ABS# 0.1 K/ul 09/29/2017 Cbc With Differential Ord2 Baso ABS# 0.1 K/ul 09/29/2017 Comp Metabolic Duh454 NA 140 mEq/L 09/29/2017 Comp Metabolic Jcd532 K 3.4 mEq/L 09/29/2017 Comp Metabolic Dze187 CL 96 mEq/L 09/29/2017 Comp Metabolic Lyj581 CO2 33.0 mEq/L 09/29/2017 Comp Metabolic Gld065 ANION GAP 14 09/29/2017 Comp Metabolic Yoi538 GLUCOSE 287 mg/dL 09/29/2017 Comp Metabolic Mbp293 Creat 0.8 mg/dL 09/29/2017 Comp Metabolic Qpe332 eGFR 77 ml/min/1.73m2 09/29/2017 Comp Metabolic Fle040 BUN 13 mg/dL 09/29/2017 Comp Metabolic Fmq716 B/C Ratio 15.9 Ratio 09/29/2017 Comp Metabolic One848 CALCIUM 9.4 mg/dL 09/29/2017 Comp Metabolic Spv236 ALK PHOS 147 U/L 09/29/2017 Comp Metabolic And743 AST(SGOT) 17 U/L 09/29/2017 Comp Metabolic Jie828 ALT(SGPT) 25 U/L 09/29/2017 Comp Metabolic Xpq613 BILI T 0.7 mg/dL 09/29/2017 Comp Metabolic Hxl628 ALBUMIN 4.2 g/dL 09/29/2017 Comp Metabolic Nqd057 TPRO 6.8 g/dL 09/29/2017 Comp Metabolic Hhu435 GLOB 2.6 g/dL 09/29/2017 Comp Metabolic Rgp671 A/G Ratio 1.6 Ratio 09/29/2017 Comp Metabolic Jcl947 Osmo 290 mOsmo 09/29/2017 %Hba1C Mrz280 % HbA1c 93062-0 11.4 % 09/29/2017 %Hba1C Lci039 Gluc Ave 280 mg/dL 09/29/2017 Free T4 Hye318 FREE T4 1.14 ng/dL 09/29/2017 Tsh Ord6 TSH (3rd IS) 2.91 uIU/mL 09/29/2017 Lipid Ord30 CHOL 182 mg/dL 06/02/2017 Lipid Ord30 HDL 57.0 mg/dl 06/02/2017 Lipid Ord30 TRIG 126 mg/dL 06/02/2017 Lipid Ord30 LDL 100 mg/dL 06/02/2017 Lipid Ord30 C/HDL 3.2 Ratio 06/02/2017 %Hba1C Jxj646 % HbA1c 84252-9 8.2 % 06/02/2017 %Hba1C Jfz476 Gluc Ave 189 mg/dL 06/02/2017 Comp Metabolic Lrz746 NA 143 mEq/L 11/12/2016 Comp Metabolic Uim483 K 3.3 mEq/L 11/12/2016 Comp Metabolic Gsr538 CL 102 mEq/L 11/12/2016 Comp Metabolic Edj001 CO2 30.0 mEq/L 11/12/2016 Comp Metabolic Cwm909 ANION GAP 14 11/12/2016 Comp Metabolic Jyw215 GLUCOSE 141 mg/dL 11/12/2016 Comp Metabolic Xok937 Creat 0.8 mg/dL 11/12/2016 Comp Metabolic Fdj661 eGFR 76 ml/min/1.73m2 11/12/2016 Comp Metabolic Nei468 BUN 11 mg/dL 11/12/2016 Comp Metabolic Qcq293 B/C Ratio 13.3 Ratio 11/12/2016 Comp Metabolic Cti453 CALCIUM 9.2 mg/dL 11/12/2016 Comp Metabolic Xhi770 ALK PHOS 116 U/L 11/12/2016 Comp Metabolic Fgt770 AST(SGOT) 21 U/L 11/12/2016 Comp Metabolic Cry388 ALT(SGPT) 28 U/L 11/12/2016 Comp Metabolic Hmd269 BILI T 0.5 mg/dL 11/12/2016 Comp Metabolic Zei479 ALBUMIN 3.8 g/dL 11/12/2016 Comp Metabolic Qoc270 TPRO 6.4 g/dL 11/12/2016 Comp Metabolic Avk436 GLOB 2.6 g/dL 11/12/2016 Comp Metabolic Ybq126 A/G Ratio 1.5 Ratio 11/12/2016 Comp Metabolic Jug786 Osmo 287 mOsmo 11/12/2016 Lipid Ord30 CHOL [...] 16.9 % 11/12/2016 Cbc With Differential Ord2 Hendry% 5.8 % 11/12/2016 Cbc With Differential Ord2 [...] 1.47 K/ul 11/12/2016 Cbc With Differential Ord2 [place] ABS# 0.5 K/ul 11/12/2016 Cbc With Differential Ord2 Eos ABS# 0.2 K/ul 11/12/2016 Cbc With Differential Ord2 Baso ABS# 0.0 K/ul 11/12/2016 Tsh Ord6 hTSH II 1.59 uIU/mL 11/12/2016 %Hba1C Mtj592 % HbA1c 20197-5 7.5 % 11/12/2016 %Hba1C Cnh682 Gluc Ave 169 mg/dL 11/12/2016 Free T4 Vnc283 FREE T4 0.91 ng/dL 11/12/2016 Cbc With [...] 29.7 pg 07/04/2016 Cbc With Differential Ord2 Hendry% 7.1 % 07/04/2016 Cbc With Differential Ord2 [...] 1.10 K/ul 07/04/2016 Cbc With Differential Ord2 [place] ABS# 0.6 K/ul 07/04/2016 Cbc With Differential Ord2 Eos ABS# 0.1 K/ul 07/04/2016 Cbc With Differential Ord2 Baso ABS# 0.1 K/ul 07/04/2016 Lipid Ord30 CHOL 282 mg/dL 07/04/2016 Lipid Ord30 HDL 53.0 mg/dl 07/04/2016 Lipid Ord30 TRIG 136 mg/dL 07/04/2016 Lipid Ord30 LDL 202 mg/dL 07/04/2016 Lipid Ord30 C/HDL 5.3 Ratio 07/04/2016 Tsh Ord6 hTSH II 1.21 uIU/mL 07/04/2016 %Hba1C Jzr743 % HbA1c 08683-8 7.1 % 07/04/2016 %Hba1C Szr946 Gluc Ave 157 mg/dL 07/04/2016 Comp Metabolic Ktp756 NA 141 mEq/L 07/04/2016 Comp Metabolic Isy403 K 3.5 mEq/L 07/04/2016 Comp Metabolic Fvo113 CL 100 mEq/L 07/04/2016 Comp Metabolic Bkt817 CO2 34.0 mEq/L 07/04/2016 Comp Metabolic Vlj184 ANION GAP 11 07/04/2016 Comp Metabolic Moh422 GLUCOSE 144 mg/dL 07/04/2016 Comp Metabolic Ysj330 Creat 0.8 mg/dL 07/04/2016 Comp Metabolic Yzi966 eGFR 75 ml/min/1.73m2 07/04/2016 Comp Metabolic Uhp928 BUN 10 mg/dL 07/04/2016 Comp Metabolic Nps204 B/C Ratio 11.9 Ratio 07/04/2016 Comp Metabolic Skk778 CALCIUM 9.4 mg/dL 07/04/2016 Comp Metabolic Rui252 ALK PHOS 116 U/L 07/04/2016 Comp Metabolic Rnv131 AST(SGOT) 16 U/L 07/04/2016 Comp Metabolic Yid539 ALT(SGPT) 17 U/L 07/04/2016 Comp Metabolic Hqc211 BILI T 0.6 mg/dL 07/04/2016 Comp Metabolic Atz162 ALBUMIN 4.3 g/dL 07/04/2016 Comp Metabolic Nmq669 TPRO 7.0 g/dL 07/04/2016 Comp Metabolic Ahy902 GLOB 2.7 g/dL 07/04/2016 Comp Metabolic Zih313 A/G Ratio 1.6 Ratio 07/04/2016 Comp Metabolic Ekn780 Osmo 283 mOsmo 07/04/2016 Free T4 Epr900 FREE T4 0.87 ng/dL 07/04/2016 Cbc With [...] 29.9 pg 03/31/2016 Cbc With Differential Ord2 Hend[place]% 6.5 % 03/31/2016 Cbc With Differential Ord2 [...] 1.22 K/ul 03/31/2016 Cbc With Differential Ord2 [place] ABS# 0.4 K/ul 03/31/2016 Cbc With Differential Ord2 Eos ABS# 0.1 K/ul 03/31/2016 Cbc With Differential Ord2 Baso ABS# 0.0 K/ul 03/31/2016 Comp Metabolic Xub251 NA 137 mEq/L 03/31/2016 Comp Metabolic Neg861 K 3.3 mEq/L 03/31/2016 Comp Metabolic Yjs444 CL 101 mEq/L 03/31/2016 Comp Metabolic Kpq668 CO2 26.0 mEq/L 03/31/2016 Comp Metabolic Asw583 ANION GAP 13 03/31/2016 Comp Metabolic Whl300 GLUCOSE 150 mg/dL 03/31/2016 Comp Metabolic Zoe241 Creat 0.9 mg/dL 03/31/2016 Comp Metabolic Wri590 eGFR 71 ml/min/1.73m2 03/31/2016 Comp Metabolic Yru285 BUN 13 mg/dL 03/31/2016 Comp Metabolic Rzi310 B/C Ratio 14.8 Ratio 03/31/2016 Comp Metabolic Dbe278 CALCIUM 8.8 mg/dL 03/31/2016 Comp Metabolic Kdy764 ALK PHOS 103 U/L 03/31/2016 Comp Metabolic Awn478 AST(SGOT) 18 U/L 03/31/2016 Comp Metabolic Xcc083 ALT(SGPT) 21 U/L 03/31/2016 Comp Metabolic Fea997 BILI T 0.4 mg/dL 03/31/2016 Comp Metabolic Cju458 ALBUMIN 3.9 g/dL 03/31/2016 Comp Metabolic Gng871 TPRO 6.5 g/dL 03/31/2016 Comp Metabolic Wwl959 GLOB 2.6 g/dL 03/31/2016 Comp Metabolic Bxn807 A/G Ratio 1.5 Ratio 03/31/2016 Comp Metabolic Wix913 Osmo 277 mOsmo 03/31/2016 Cbc With Differential [...] 30.4 pg 02/12/2016 Cbc With Differential Ord2 Hendry% 7.0 % 02/12/2016 Cbc With Differential Ord2 [...] 2.42 K/ul 02/12/2016 Cbc With Differential Ord2 [place] ABS# 0.7 K/ul 02/12/2016 Cbc With Differential Ord2 Eos ABS# 0.2 K/ul 02/12/2016 Cbc With Differential Ord2 Baso ABS# 0.1 K/ul 02/12/2016 Comp Metabolic Ooo223 NA 138 mEq/L 02/01/2016 Comp Metabolic Web987 K 4.3 mEq/L 02/01/2016 Comp Metabolic Bdp003 CL 101 mEq/L 02/01/2016 Comp Metabolic Ljm504 CO2 27.0 mEq/L 02/01/2016 Comp Metabolic Hwx952 ANION GAP 14 02/01/2016 Comp Metabolic Yvb766 GLUCOSE 127 mg/dL 02/01/2016 Comp Metabolic Qwv515 Creat 1.0 mg/dL 02/01/2016 Comp Metabolic Ubz902 eGFR 61 ml/min/1.73m2 02/01/2016 Comp Metabolic Lkk738 BUN 21 mg/dL 02/01/2016 Comp Metabolic Cte686 B/C Ratio 20.8 Ratio 02/01/2016 Comp Metabolic Hwl101 CALCIUM 9.1 mg/dL 02/01/2016 Comp Metabolic Zsd228 ALK PHOS 105 U/L 02/01/2016 Comp Metabolic Efy521 AST(SGOT) 14 U/L 02/01/2016 Comp Metabolic Fqy261 ALT(SGPT) 26 U/L 02/01/2016 Comp Metabolic Xqd763 BILI T 0.4 mg/dL 02/01/2016 Comp Metabolic Ilz719 ALBUMIN 3.9 g/dL 02/01/2016 Comp Metabolic Joh821 TPRO 6.7 g/dL 02/01/2016 Comp Metabolic Zqh579 GLOB 2.8 g/dL 02/01/2016 Comp Metabolic Yir453 A/G Ratio 1.4 Ratio 02/01/2016 Comp Metabolic Jhk105 Osmo 280 mOsmo 02/01/2016 Tsh Ord6 hTSH [...] 30.4 pg 02/01/2016 Cbc With Differential Ord2 Hendry% 5.8 % 02/01/2016 Cbc With Differential Ord2 [...] 3.74 K/ul 02/01/2016 Cbc With Differential Ord2 [place] ABS# 0.8 K/ul 02/01/2016 Cbc With Differential Ord2 Eos ABS# 0.2 K/ul 02/01/2016 Cbc With Differential Ord2 Baso ABS# 0.0 K/ul 02/01/2016 %Hba1C Ryz293 % HbA1c 80609-6 6.9 % 01/07/2016 %Hba1C Evi756 Gluc Ave 151 mg/dL 01/07/2016 Tsh Ord6 hTSH II 0.99 uIU/mL 11/08/2015 Free T4 Srm575 FREE T4 1.01 ng/dL 11/08/2015 %Hba1C Sjd286 % HbA1c 59938-6 6.6 % 09/14/2015 %Hba1C Wxk459 Gluc Ave 143 mg/dL 09/14/2015 Lipid Ord30 [...] 21.4 % 09/12/2015 Cbc With Differential Ord2 Hendry% 5.9 % 09/12/2015 Cbc With Differential Ord2 [...] 1.48 K/ul 09/12/2015 Cbc With Differential Ord2 [place] ABS# 0.4 K/ul 09/12/2015 Cbc With Differential Ord2 Eos ABS# 0.1 K/ul 09/12/2015 Cbc With Differential Ord2 Baso ABS# 0.0 K/ul 09/12/2015 Cbc With Differential Ord2 New Analyzer Notice Please note new ref ranges starting 05-09-2015 due to implemntation of new five part differential hematolgy analyzer. 09/12/2015 Comp Metabolic Gfr761 NA 139 mEq/L 09/12/2015 Comp Metabolic Jha041 K 3.7 mEq/L 09/12/2015 Comp Metabolic Lgy815 CL 102 mEq/L 09/12/2015 Comp Metabolic Lds891 CO2 30.0 mEq/L 09/12/2015 Comp Metabolic Sud351 ANION GAP 11 09/12/2015 Comp Metabolic Hhg433 GLUCOSE 135 mg/dL 09/12/2015 Comp Metabolic Uwm796 Creat 0.8 mg/dL 09/12/2015 Comp Metabolic Jnp695 eGFR 86 ml/min/1.73m2 09/12/2015 Comp Metabolic Tes489 BUN 10 mg/dL 09/12/2015 Comp Metabolic Srk446 B/C Ratio 13.3 Ratio 09/12/2015 Comp Metabolic Hmb783 CALCIUM 8.8 mg/dL 09/12/2015 Comp Metabolic Itb870 ALK PHOS 95 U/L 09/12/2015 Comp Metabolic Yfd952 AST(SGOT) 18 U/L 09/12/2015 Comp Metabolic Doq885 ALT(SGPT) 20 U/L 09/12/2015 Comp Metabolic Ofc999 BILI T 0.5 mg/dL 09/12/2015 Comp Metabolic Fuo399 ALBUMIN 3.9 g/dL 09/12/2015 Comp Metabolic Nfh605 TPRO 6.5 g/dL 09/12/2015 Comp Metabolic Err038 GLOB 2.6 g/dL 09/12/2015 Comp Metabolic Emn615 A/G Ratio 1.5 Ratio 09/12/2015 Comp Metabolic Eoj188 Osmo 279 mOsmo 09/12/2015 Tsh Ord6 hTSH II 0.81 uIU/mL 08/01/2015 Free T4 Awp955 FREE T4 0.82 ng/dL 08/01/2015 Vitamin B12 793637 VITAMIN B12 TEST NOT PERFORMED pg/mL 2015 Vitamin D 25 Oh Eat4952 VITAMIN D, 25 HYDROXY 50.78 ng/mL Comp Metabolic Uzt745 NA 142 mEq/L 04/12/2015 Comp Metabolic Inc525 K 3.5 mEq/L 04/12/2015 Comp Metabolic Gmc300 CL 102 mEq/L 04/12/2015 Comp Metabolic Mii567 CO2 32.0 mEq/L 04/12/2015 Comp Metabolic Wqa784 ANION GAP 12 04/12/2015 Comp Metabolic Cfd110 GLUCOSE 130 mg/dL 04/12/2015 Comp Metabolic Ggx453 Creat 0.8 mg/dL 04/12/2015 Comp Metabolic Coe869 eGFR 78 ml/min/1.73m2 04/12/2015 Comp Metabolic Bhd396 BUN 12 mg/dL 04/12/2015 Comp Metabolic Top137 B/C Ratio 14.6 Ratio 04/12/2015 Comp Metabolic Tkn989 CALCIUM 8.9 mg/dL 04/12/2015 Comp Metabolic Qxm267 ALK PHOS 95 U/L 04/12/2015 Comp Metabolic Qen442 AST(SGOT) 21 U/L 04/12/2015 Comp Metabolic Jds274 ALT(SGPT) 23 U/L 04/12/2015 Comp Metabolic Ihk338 BILI T 0.4 mg/dL 04/12/2015 Comp Metabolic Ows260 ALBUMIN 3.9 g/dL 04/12/2015 Comp Metabolic Liv836 TPRO 6.3 g/dL 04/12/2015 Comp Metabolic Rqj083 GLOB 2.4 g/dL 04/12/2015 Comp Metabolic Yba211 A/G Ratio 1.6 Ratio 04/12/2015 Comp Metabolic Fqs777 Osmo 285 mOsmo 04/12/2015 Tsh Ord6 hTSH II 0.18 uIU/mL 04/12/2015 %Hba1C Xyp066 % HbA1c 47557-8 6.4 % 04/12/2015 %Hba1C Exg948 Gluc Ave 137 mg/dL 04/12/2015 Free T4 Jri785 FREE T4 1.13 ng/dL 04/12/2015 Cbc With [...] Ord2 RDW 14.6 % 11/14/2014 Comp Metabolic Otd307 NA 137 mEq/L 11/14/2014 Comp Metabolic Hkp660 K 3.6 mEq/L 11/14/2014 Comp Metabolic Qol991 CL 98 mEq/L 11/14/2014 Comp Metabolic Nup710 CO2 31.0 mEq/L 11/14/2014 Comp Metabolic Ptf281 ANION GAP 12 11/14/2014 Comp Metabolic Ced926 GLUCOSE 110 mg/dL 11/14/2014 Comp Metabolic Gat259 Creat 0.8 mg/dL 11/14/2014 Comp Metabolic Lai960 eGFR 81 ml/min/1.73m2 11/14/2014 Comp Metabolic Ttn714 BUN 14 mg/dL 11/14/2014 Comp Metabolic Pcw222 B/C Ratio 17.7 Ratio 11/14/2014 Comp Metabolic Vub643 CALCIUM 9.2 mg/dL 11/14/2014 Comp Metabolic Dkb977 ALK PHOS 135 U/L 11/14/2014 Comp Metabolic Oaw531 AST(SGOT) 17 U/L 11/14/2014 Comp Metabolic Fgr987 ALT(SGPT) 20 U/L 11/14/2014 Comp Metabolic Swt515 BILI T 0.3 mg/dL 11/14/2014 Comp Metabolic Ljv061 ALBUMIN 3.7 g/dL 11/14/2014 Comp Metabolic Vvl290 TPRO 6.5 g/dL 11/14/2014 Comp Metabolic Twy024 GLOB 2.8 g/dL 11/14/2014 Comp Metabolic Dtm728 A/G Ratio 1.3 Ratio 11/14/2014 Comp Metabolic Vfq822 Osmo 275 mOsmo 11/14/2014 GFR CALC 0203306 GFR AA >60 ML/MIN 04/11/2014 GFR CALC 0750008 GFR NON-AA >60 ML/MIN 04/11/2014 CHEM 14 2339986 AST 18 U/L 04/11/2014 CHEM 14 4728494 ALT 25 IU/L 04/11/2014 CHEM 14 0254495 BUN 13 MG/DL 04/11/2014 CHEM 14 5734115 ALBUMIN 4.1 GM/DL 04/11/2014 CHEM 14 4166554 CHLORIDE 103 MMOL/L 04/11/2014 CHEM 14 4972443 BILI TOT 0.3 MG/DL 04/11/2014 CHEM 14 6292017 ALK PHOS 107 U/L 04/11/2014 CHEM 14 1739255 SODIUM 139 MMOL/L 04/11/2014 CHEM 14 8128174 CREATININE 0.85 MG/DL 04/11/2014 CHEM 14 3072993 CALCIUM 9.2 MG/DL 04/11/2014 CHEM 14 1117570 POTASSIUM 3.7 MMOL/L 04/11/2014 CHEM 14 5890330 PROT TOT 7.1 GM/DL 04/11/2014 CHEM 14 8279295 GLUCOSE 85 MG/DL 04/11/2014 CHEM 14 7098253 BICARB 28 MMOL/L 04/11/2014 CHEM 14 3160763 ANION GAP 8 MEQ/L 04/11/2014 URINALYSIS NONAUTO W/O SCOPE 23896 Specific [place] 1.020 DateTime(Free Text in Aprima) URINALYSIS NONAUTO W/O SCOPE 63564 PH 5.0 DateTime(Free Text in Aprima) URINALYSIS NONAUTO W/O SCOPE 69535 Protein neg DateTime( Free Text in Aprima) URINALYSIS NONAUTO W/O SCOPE 04464 Blood neg DateTime(Free Text in Aprima) URINALYSIS NONAUTO W/O SCOPE 88745 Bilirubin neg DateTime(Free Text in Aprima) URINALYSIS NONAUTO W/O SCOPE 66642 Ketones small DateTime(Free Text in Aprima) URINALYSIS NONAUTO W/O SCOPE 12265 Urobilinogen neg DateTime(Free Text in Aprima) URINALYSIS NONAUTO W/O SCOPE 37172 Nitrite neg DateTime( Free Text in Aprima) URINALYSIS NONAUTO W/O SCOPE 26807 Leukocytes neg DateTime(Free Text in Aprima) Review [...] accomodation 05/21/2012 None Procedures Procedure Codes Date THER/PROPH/DIAG INJ SC/IM CPT-4: 42889 02/22/2018 TRIAMCINOLONE ACET INJ NOS CPT-4: J3301 02/22/2018 IMMUNIZATION ADMIN CPT -4: 70208 01/07/2018 FLU VAC NO PRSV 4 SHAKILA 3 YRS+ CPT-4: 28000 01/07/2018 TRIAMCINOLONE ACET INJ NOS CPT-4: J3301 01/22/2016 TRIAMCINOLONE ACET INJ NOS CPT-4: J3301 11/23/2014 THER/PROPH/DIAG INJ SC/IM CPT-4: 96657 11/23/2014 THER/PROPH/DIAG INJ SC/IM CPT-4: 04902 11/22/2014 TRIAMCINOLONE ACET INJ NOS CPT-4: J3301 11/22/2014 URINALYSIS NONAUTO W/O SCOPE CPT-4: 78899 11/14/2014 ROUTINE VENIPUNCTURE CPT-4: 89173 04/11/2014 CHEM 14 (COMPREHEN METABOLIC PANEL) CPT-4: 46068 04/11/2014 IMMUNIZATION ADMIN CPT -4: 56359 01/05/2014 FLU VAC NO PRSV 4 SHAKILA 3 YRS+ Assigned to/Alyssa Thomas CPT-4: 63152Lekgjmi 01/05/2014 FOOT EXAM PERFORMED SNOMED CT: 55018408 CPT-4: 2028F 06/20/2013 KETOROLAC TROMETHAMINE INJ CPT-4: J1885 06/06/2013 THER/PROPH/DIAG INJ SC/IM CPT-4: 27527 06/06/2013 Vital Signs Date Vital 02/22/2018 Blood Pressure 1: 130/68 Code : 8480-6 BMI: 31.5 Code : 32689-6 Heart Rate 1 : 91 bpm Height: 5'6" SpO2: 98% Weight: 192 lbs 01/07/2018 Blood Pressure 1: 138/82 Code : 8480-6 BMI: 31.3 Code : 77129-0 Heart Rate 1 : 95 bpm Height: 5'6" SpO2: 98% Weight: 191 lbs 10/01/2017 Blood Pressure 1: 138/88 Code : 8480-6 BMI: 30.3 Code : 57408-3 Heart Rate 1 : 80 bpm Height: 5'6" SpO2: 98% Weight: 185 lbs 06/08/2017 Blood Pressure 1: 148/92 Code : 8480-6 BMI: 31.5 Code : 03630-4 Heart Rate 1 : 88 bpm Height: 5'6" SpO2: 98% Weight: 192 lbs 11/12/2016 Blood Pressure 1: 140/80 Code : 8480-6 BMI: 29.7 Code : 45351-5 Heart Rate 1 : 82 bpm Height: 5'6" SpO2: 96% Weight: 181 lbs 08/11/2016 Blood Pressure 1: 152/88 Code : 8480-6 BMI: 30.3 Code : 14082-0 Heart Rate 1 : 73 bpm Height: 5'6" SpO2: 98% Weight: 185 lbs 03/31/2016 Blood Pressure 1: 124/86 Code : 8480-6 BMI: 30.2 Code : 85770-0 Heart Rate 1 : 86 bpm Height: 5'6" SpO2: 95% Weight: 184 lbs 02/01/2016 Blood Pressure 1: 112/60 Code : 8480-6 BMI: 29.5 Code : 58608-9 Heart Rate 1 : 68 bpm Height: 5'6" SpO2: 98% Weight: 180 lbs 01/22/2016 Blood Pressure 1: 132/80 Code : 8480-6 BMI: 29.8 Code : 75474-0 Heart Rate 1 : 76 bpm Height: 5'6" SpO2: 98% Temperature: 35.7 (C) / 96.2 (F) Weight: 182 lbs 01/07/2016 Blood Pressure 1: 134/86 Code : 8480-6 BMI: 30.0 Code : 10910-3 Heart Rate 1 : 78 bpm Height: 5'6" SpO2: 98% Weight: 183 lbs 12/03/2015 Blood Pressure 1: 146/86 Code : 8480-6 BMI: 30.2 Code : 72884-4 Heart Rate 1 : 93 bpm Height: 5'6" SpO2: 98% Weight: 184 lbs 8 oz 09/17/2015 Blood Pressure 1: 140/88 Code : 8480-6 BMI: 29.5 Code : 96938-6 Heart Rate 1 : 77 bpm Height: 5'6" SpO2: 98% Weight: 180 lbs 05/29/2015 Blood Pressure 1: 140/80 Code : 8480-6 BMI: 28.2 Code : 61288-9 Heart Rate 1 : 83 bpm Height: 5'6" SpO2: 98% Weight: 172 lbs 12/12/2014 Blood Pressure 1: 150/92 Code : 8480-6 BMI: 28.2 Code : 78575-8 Heart Rate 1 : 91 bpm Height: 5'6" SpO2: 96% Weight: 172 lbs 11/23/2014 Blood Pressure 1: 138/92 Code : 8480-6 11/22/2014 Blood Pressure 1: 126/80 Code : 8480-6 BMI: 28.7 Code : 97770-0 Heart Rate 1 : 86 bpm Height: 5'6" SpO2: 97% Weight: 175 lbs 11/14/2014 Blood Pressure 1: 130/82 Code : 8480-6 BMI: 28.7 Code : 92628-5 Heart Rate 1 : 72 bpm Height: 5'6" Temperature: 36.3 (C) / 97.4 (F) Weight: 175 lbs 09/04/2014 Blood Pressure 1: 128/82 Code : 8480-6 BMI: 30.3 Code : 34941-7 Heart Rate 1 : 80 bpm Height: 5'6" Weight: 185 lbs 08/04/2014 Blood Pressure 1: 140/82 Code : 8480-6 BMI: 31.3 Code : 73370-2 Heart Rate 1 : 92 bpm Height: 5'6" SpO2: 99% Weight: 191 lbs 04/11/2014 Blood Pressure 1: 142/80 Code : 8480-6 BMI: 34.7 Code : 87781-5 Heart Rate 1 : 74 bpm Height: 5'6" Weight: 212 lbs 01/05/2014 Blood Pressure 1: 144/84 Code : 8480-6 BMI: 36.7 Code : 65789-4 Heart Rate 1 : 89 bpm Height: 5'6" SpO2: 97% Weight: 224 lbs 10/10/2013 Blood Pressure 1: 112/70 Code : 8480-6 BMI: 36.1 Code : 92696-4 Heart Rate 1 : 104 bpm Height: 5'6" Weight: 220 lbs 08/02/2013 Blood Pressure 1: 178/98 Code : 8480-6 BMI: 36.4 Code : 61021-9 Heart Rate 1 : 100 bpm Height: 5'6" Weight: 222 lbs 06/30/2013 Blood Pressure 1: 142/82 Code : 8480-6 BMI: 35.9 Code : 79313-6 Heart Rate 1 : 86 bpm Height: 5'6" SpO2: 98% Temperature: 36.3 (C) / 97.3 (F) Weight: 219 lbs 06/20/2013 Blood Pressure 1: 126/78 Code : 8480-6 BMI: 36.2 Code : 64963-7 Heart Rate 1 : 76 bpm Height: 5'6" Weight: 221 lbs 06/06/2013 Blood Pressure 1: 158/98 Code : 8480-6 BMI: 36.2 Code : 26881-8 Heart Rate 1 : 92 bpm Height: 5'6" Weight: 221 lbs 02/21/2013 Blood Pressure 1: 128/82 Code : 8480-6 BMI: 35.2 Code : 56368-0 Heart Rate 1 : 80 bpm Height: 5'6" Temperature: 35.7 (C) / 96.3 (F) Weight: 215 lbs 12/13/2012 Blood Pressure 1: 132/86 Code : 8480-6 BMI: 35.7 Code : 88409-6 Heart Rate 1 : 80 bpm Height: 5'6" Weight: 218 lbs 09/23/2012 Blood Pressure 1: 132/90 Code : 8480-6 BMI: 36.2 Code : 57282-3 Heart Rate 1 : 84 bpm Height: 5'6" Weight: 221 lbs 06/14/2012 Blood Pressure 1: 134/84 Code : 8480-6 Heart Rate 1: 84 bpm Respiratory Rate : 20 bpm Weight: 221 lbs 05/21/2012 Blood Pressure 1: 136/80 Code : 8480-6 BMI: 35.9 Code : 82549-6 Heart Rate 1 : 20 bpm Height: [...] surgery was canceled. She was referred to advertising account executive at acute renal failure Onset of Symptom [...] diabetes mellitus Exercise minimal exercise 01/05/2014 starting [facility] diabetes mellitus Pertinent Findings Denies dyspnea 01/05/2014 [...] in the larynx 02/21/2013 patient went to [facility] thursday. was given a zpack, prednisone, and [...] data Encounters Encounter Performer Location Codes Date 72462 EST. PATIENT, LEVEL IV Diagnosis: Other acute sinusitis[ICD10: J01.80] Diagnosis: Other allergic rhinitis[ICD10: J30.89] Diagnosis: Actinic keratosis[ICD10: L57.0] Diagnosis: Pain in left forearm[ICD10: M79.632] Diagnosis: Generalized anxiety disorder[ICD10: F41.1] Diagnosis: Major depressive disorder, single episode, moderate[ICD10: F32.1] Tiffanie Curran MD, [facility] CPT-4: 94129 02/22/2018 [id number] EST. PATIENT, LEVEL IV Diagnosis: Type 2 diabetes mellitus with hyperglycemia[ICD10: E11.65] Diagnosis: Other specified hypothyroidism[ICD10: E03.8] Diagnosis: VACCIN FOR INFLUENZA[ICD10: Z23] Tiffanie Curran MD, [facility] CPT- 4: 27319 01/07/2018 [id number] EST. PATIENT, LEVEL IV Diagnosis: Type 2 diabetes mellitus with hyperglycemia[ICD10: E11.65] Diagnosis: Other specified hypothyroidism[ICD10: E03.8] Diagnosis: Other allergic rhinitis[ICD10: J30.89] Tiffanie Curran MD, [facility] CPT-4: 75940 10/01/2017 92825 EST. PATIENT, LEVEL IV Diagnosis: Type 2 diabetes mellitus with hyperglycemia[ICD10: E11.65] Diagnosis: Hypothyroidism, unspecified[ICD10: E03.9] Diagnosis: Generalized anxiety disorder[ICD10: F41.1] Diagnosis: Major depressive disorder, single episode, moderate[ICD10: F32.1] Tiffanie Curran MD, [facility] CPT-4: 03179 06/08/2017 ([id number]) PREV VISIT EST AGE 40-64 Diagnosis: Encounter for general adult medical examination without abnormal findings[ICD10: Z00.00] Eleonora Curran MD, [facility] CPT-4: 99259 11/12/2016 ([id number]) 45024 EST. PATIENT, LEVEL III Diagnosis: Allergic rhinitis due to pollen[ICD10: J30.1] Diagnosis: Acute upper respiratory infection, unspecified[ICD10: J06.9] Talya Curran MD, [facility] CPT-4: 22975 09/16/2016 ([id number]) 70131 EST. PATIENT, LEVEL IV Diagnosis: Essential (primary) hypertension[ICD10: I10] Diagnosis: Type 2 diabetes mellitus without complications[ICD10: E11.9] Diagnosis: Functional diarrhea[ICD10: K59.1] Diagnosis: Mixed hyperlipidemia[ICD10: E78.2] Eleonora Curran MD, [facility] CPT-4: 25448 08/11/2016 ([id number]) 07643 EST. PATIENT, LEVEL III Diagnosis: Cramp and spasm[ICD10: R25.2] Diagnosis: Nausea[ICD10: R11.0] Talya Curran MD, [facility] CPT-4: 27133 03/31/2016 ([id number]) 07998 EST. PATIENT, LEVEL IV Diagnosis: Cough[ICD10: R05] Diagnosis: Essential (primary) hypertension[ICD10: I10] Diagnosis: Hypothyroidism, unspecified[ICD10: E03.9] Diagnosis: Gastro-esophageal reflux disease without esophagitis[ICD10: K21.9] Talya Curran MD, [facility] CPT-4: 89888 02/01/2016 ([id number]) 92873 EST. PATIENT, LEVEL III Diagnosis: Cough[ICD10: R05] Diagnosis: Acute bronchitis, unspecified[ICD10: J20.9] Talya Curran MD, [facility] CPT-4: 86313 01/22/2016 ([id number]) 19194 EST. PATIENT, LEVEL IV Diagnosis: Type 2 diabetes mellitus without complications[ICD10: E11.9] Diagnosis: Essential (primary) hypertension[ICD10: I10] Diagnosis: Dysphagia, pharyngeal phase[ICD10: R13.13] Eleonora Curran MD, [facility] CPT-4: 02206 01/07/2016 ([id number]) 31793 EST. PATIENT, LEVEL IV Diagnosis: Type 2 diabetes mellitus without complications[ICD10: E11.9] Diagnosis: Essential (primary) hypertension[ICD10: I10] Diagnosis: Pain in right knee[ICD10: M25.561] Eleonora Curran MD, [facility] CPT-4: 48502 12/03/2015 ([id number]) 83881 EST. PATIENT, LEVEL IV Diagnosis: Type 2 diabetes mellitus with hyperglycemia[ICD10: E11.65] Diagnosis: Essential (primary) hypertension[ICD10: I10] Eleonora Curran MD, [facility] CPT-4: 10869 09/17/2015 ([id number]) 80406 EST. 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 PATIENT, LEVEL III Diagnosis: Diabetes mellitus, type II[ICD9: 250.00] Diagnosis: ESSENTIAL HYPERTENSION[ICD9: 401.9] Diagnosis: ESOPHAGEAL REFLUX[ICD9: 530.81] Eleonora Curran MD, [facility] CPT- 4: 14936 12/12/2014 ([id number]) 81827 EST. PATIENT, LEVEL III Diagnosis: ALLERGIC URTICARIA[ICD9: 708.0] Kristan Curran MD, [facility] CPT-4 : 40458 11/22/2014 ([id number]) 90934 EST. PATIENT, LEVEL III Diagnosis: Abdominal pain[ICD9: 789.00] Diagnosis: Status post gastric surgery[ICD9: V45.89] Kristan Curran MD, [facility] CPT-4: 08314 11/14/2014 ([id number]) 65168 EST. PATIENT, LEVEL III Diagnosis: Diabetes mellitus, type II[ICD9: 250.00] Diagnosis: ESSENTIAL HYPERTENSION[ICD9: 401.9] Diagnosis: OBESITY[ICD9: 278.00] Diagnosis: ESOPHAGEAL REFLUX[ICD9: 530.81] Eleonora Curran MD, [facility] CPT- 4: 14148 09/04/2014 ([id number]) 44444 EST. PATIENT, LEVEL IV Diagnosis: Diabetes mellitus, type II[ICD9: 250.00] Diagnosis: ESSENTIAL HYPERTENSION[ICD9: 401.9] Diagnosis: OBESITY[ICD9: 278.00] Eleonora Curran MD, [facility] CPT-4: 28132 08/04/2014 ([id number]) 83297 EST. PATIENT, LEVEL IV Diagnosis: Thyroid nodule[ICD9: 241.0] Diagnosis: Decreased renal function[ICD9: 593.9] Diagnosis: Diabetes mellitus, type II[ICD9: 250.00] Talya Curran MD, [facility] CPT-4: 47854 04/11/2014 ([id number]) 49188 EST. PATIENT, LEVEL IV Diagnosis: Chronic diarrhea[ICD9: 787.91] Diagnosis: DM W/O COMPLICATION TYPE II, UNCONTROLLED[ICD9: 250.02] Diagnosis: ESSENTIAL HYPERTENSION[ICD9: 401.9] Talya Curran MD, [facility] CPT-4: 55986 01/05/2014 14838 EST. PATIENT, LEVEL IV Diagnosis: DM W/O COMPLICATION TYPE II, UNCONTROLLED[ICD9: 250.02] Diagnosis: OBESITY[ICD9: 278.00] Diagnosis: Generalized anxiety disorder[ICD9: 300.02] Diagnosis: ESSENTIAL HYPERTENSION[ICD9: 401.9] Eleonora Curran MD, [facility] CPT-4: 13757 10/10/2013 ([id number]) 44286 EST. PATIENT, LEVEL IV Diagnosis: DM W/O COMPLICATION TYPE II, UNCONTROLLED[ICD9: 250.02] Diagnosis: Shoulder pain, right[ICD9: 719.41] Diagnosis: INSOMNIA NOS[ICD9: 780.52] Eleonora Curran MD, [facility] CPT- 4: 38266 08/02/2013 ([id number]) 16478 EST. PATIENT, LEVEL IV Diagnosis: DM W/O COMPLICATION TYPE II, UNCONTROLLED[SNOMED: 84208927] Diagnosis: COUGH[ICD9: 786.2] Diagnosis: MYALGIA AND MYOSITIS[ICD9: 729.1] Eleonora Curran MD, [facility] CPT-4: 00874 06/30/2013 ([id number]) 08974 EST. PATIENT, LEVEL III Diagnosis: DM W/O COMPLICATION TYPE II, UNCONTROLLED[SNOMED: 03210398] Eleonora Curran MD [facility] CPT-4: 72397 06/20/2013 ([id number]) 57985 EST. PATIENT, LEVEL IV Diagnosis: DM W/O COMPLICATION TYPE II, UNCONTROLLED[SNOMED: 37366126] Eleonora Curran MD , [facility] CPT-4: 79378 06/06/2013 ([id number]) 12348 EST. PATIENT, LEVEL IV Diagnosis: Acute bronchitis[ICD9: 466.0] Diagnosis: Cough[ICD9: 786.2] Diagnosis: Myalgia[ICD9: 729.1] Eleonora Curran MD, [facility] CPT-4: 95360 02/21/2013 29110 EST. PATIENT, LEVEL IV Diagnosis: DM W/O COMPLICATION TYPE II, UNCONTROLLED[SNOMED: 83254348] Diagnosis: OBESITY[ICD9: 278.00] Diagnosis: Dietary counseling and surveillance[ICD9: V65.3] Eleonora Curran MD, [facility] CPT-4: 98454 12/13/2012 ([phone] 79801 EST. PATIENT, LEVEL IV Diagnosis: DM W/O COMPLICATION TYPE II, UNCONTROLLED[SNOMED: 80035313] Diagnosis: HYPERLIPIDEMIA[ICD9: 272.4] LAURENCE Manriquez MD CPT- 4: 93044 09/23/2012 ([id number] 55315 EST. PATIENT, LEVEL IV Diagnosis: Diabetes mellitus type 2, uncontrolled[SNOMED: 68155130] Diagnosis: Hyperlipidemia[ICD9: 272.4] Diagnosis: ESSENTIAL HYPERTENSION[SNOMED: 52107426] Talya Curran MD, [facility] CPT-4: 59051 06/14/2012 OFFICE VISIT, NEW - LEVEL 3 Diagnosis: Influenza[ICD9: 487.1] Diagnosis: COUGH[ICD9: 786.2] Diagnosis: FEVER NOS[ICD9: 780.60] Diagnosis: Diarrhea[ICD9: 787.91] Diagnosis: Diabetes mellitus, type II[SNOMED: 783957771] Talya Curran MD, [facility] CPT-4: 79162 05/21/2012 Plan of Care Planned Activity Notes [...] monitor lesions. 02/22/2018 Appointment: Tiffanie Cr WPtel: [facility]9 [facility] (15 min) Moderate 02/22/2018 Patient Education: Patient [...] of control. 01/07/2018 Appointment: Tiffanie Cr WPtel: [phone] [facility] [place] (15 min) Moderate 01/07/2018 Patient Education: Patient Medication Summary Completed 01/07/2018 Patient Education: Diabetes Completed 01/07/2018 Appointment: Tiffanie Cr WPtel: [phone] [facility] [place] (15 min) Moderate 12/31/2017 Patient Education: [...] steroid allergy spray. 10/01/2017 Appointment: Tiffanie Crtel: [phone] [facility] (15 min) Moderate 10/01/2017 Patient Education: Patient Medication Summary Completed 10/01/2017 Appointment: Tiffanie Crtel: [phone] [facility] (15 min) Moderate 09/07/2017 Visit Plan: Diabetes [...] this patient. 06/08/2017 Appointment: Tiffanie Cr WPtel: [phone] [facility] (30 min) Complex 06/08/2017 Patient Education: Patient [...] renal functioning. 11/12/2016 Appointment: Eleonora Curran WPtel: [facility]5 [facility] (15 min) Moderate 11/12/2016 Patient Education: Patient Medication Summary Completed 11/12/2016 Patient Education: Patient Medication Summary Completed 11/12/2016 Appointment: Eleonora Curran WPtel: [phone] [facility] (15 min) Moderate 11/06/2016 Visit Plan: [...] RX sent to patient's pharmacy. 09/16/2016 Appointment: David Talya WPtel: [phone] [phone] [place] (10 min) Simple 09/16/2016 Patient Education: Patient Medication Summary Completed 09/16/2016 Care Plan: SCREENINGMAMMOGRAPHYDIGITAL LOINC : 21707-5 Pending 08/16/2016 Visit Plan: Diabetes Mellitus - [...] acute concerns. 08/11/2016 [phone] ([facility]) Moderate 08/11/2016 Patient Education: Patient Medication Summary Completed 08/11/2016 Patient Education: Obesity Completed 08/11/2016 App[facility]ment: [facility] [address] [facility] (15 min) Moderate 07/14/2016 Patient Education: Patient Medication Summary Completed 07/04/2016 Care Plan: Cbc With Differential Pending 07/04/2016 Care Plan: Comp Metabolic Pending 07/04/2016 Care Plan: Tsh Pending 07/04/2016 Care Plan: Lipid Pending 07/04/2016 Care Plan: %Hba1C LOINC : 20838-4 Pending 07/04/2016 Care Plan: Free T4 Pending 07/04/2016 Appointment: Eleonora Curran WPtel: [phone] [facility] [place] (15 min) Moderate 06/16/2016 Appointment: Eleonora Curran WPtel: [facility] (15 min) Moderate 05/06/2016 Visit Plan: Gastroenteritis - discussed need to stay away from milk products while acutely ill with diarrhea and nausea and emesis as it may worsen the symptoms. Liquids initially until the nausea improves, then recommend to advance to bland diet for 1 day, then advance as tolerated. Call if symptoms not improved. 03/31/2016 Appointment: Talya Hernandez WPtel: [facility]3 [phone] [place] (10 min) Simple 03/31/2016 Patient Education: Patient [...] not improving. 02/01/2016 Appointment: [facility]alya Hernandez [phone] [place] (30 min) Complex 02/01/2016 Patient Education: Patient Medication Summary Completed 02/01/2016 Visit Plan: Bronchitis - acute case of bronchitis identified. Pt has been given antibiotics, breathing treatments as appropriate, and pt has been instructed to call if symptoms are not improved, or if symptoms acutely worsen. 01/22/2016 Appointment: Talya Hernandez WPtel: [phone] [facility] (15 min) Moderate 01/22/2016 Patient Education: Patient [...] monitor 01/07/2016 Appointment: [phone] (15 min) Moderate 01/07/2016 Patient Education: Patient [...] to allow for greater blood glucose control. Trulicdipti started - victoza stopped 09/17/2015 Appointment: [facility]ran [phone] (15 min) Moderate 09/17/2015 Patient Education: [...] Hypertension Completed 05/29/2015 Appointment: Ele[facility]ora Curran [facility]Ptel[phone] [facility] [place] (15 min) Moderate 05/22/2015 Appointment: (15 min) [...] of control. 12/12/2014 Appointment: Eleon[facility] Curran WPtel[facility] (15 min) Moderate 12/12/2014 Patient Education: Patient Medication Summary Completed 12/12/2014 Patient Education: Hypertension Completed 12/12/2014 Appointment: [facility]alya Hernandez [facility]el[phone] [phone] Follow up 11/28/2014 Patient Education: Patient Medication [...] starting to become less controlled.victoza sample - [id number] exp 02/2016 novonordisk Hypertension - well controlled - continue with current medications, continue with no added salt diet. Pt has been encouraged to exercise daily. The pt has been advised to call the office if there are any acute concerns about change in blood pressure readings at home. 09/04/2014 Appointment: [facility] Curran [facility]el[phone] [facility] Follow up 09/04/2014 Patient Education: Patient Medication Summary Completed 09/04/2014 Patient Education: Hypertension Completed 09/04/2014 Care Plan: Referral Order SNOMED-CT : [id number] Ordered 09/04/2014 Visit Plan: Hypertension - well [...] metformin 08/04/2014 Appointment: [facility] Curran [facility]el[phone] Follow up 08/04/2014 Patient Education: Patient Medication Summary Completed 08/04/2014 Patient Education: Hypertension Completed 08/04/2014 Visit Plan: Thyroid nodules-nodule on left lobe has increased in size-biopsy scheduled for Decrease renal function- secondary to dehydration-repeat labs-maintain adequate oral intake-follow up with advertising account executive as scheduled DM-hgb a1c improved-continue with same [...] Completed 01/05/2014 Appointment: Eleon[facility] Curran [facility]Ptel[phone] [facility] Follow up 01/03/2014 Visit Plan: Diabetes [...] to relax. 10/10/2013 Appointment: Eleonora Curran WPtel: [facility]5 [facility] Follow up 10/10/2013 Patient Education: Patient Medication Summary Completed 10/10/2013 Patient Education: Hypertension Completed 10/10/2013 Appointment: Eleonora Curran WPtel: [address] [place], [place] [phone] Follow up 09/13/2013 Appointment: Eleonora Curran WPtel: [facility]5 [facility] [place] Follow up 08/03/2013 Visit Plan: Diabetes Mellitus [...] into other treatment options. 08/02/2013 Appointment: Eleonora Currantel: [phone] [facility] Follow up 08/02/2013 Patient Education: Patient Medication [...] urgent care. 06/30/2013 Appointment: Eleonora Curran [facility]Ptel[phone] Sick 06/30/2013 Patient Education: Patient Medication Summary [...] patient today. 06/20/2013 Appointment: Eleonora Curran [facility]Ptel[phone] [facility] Diabetic education 06/20/2013 Patient Education: Patient Medication Summary Completed 06/20/2013 Appointment: Eleonora Curran WPtel: [facility]6 [facility] Follow up 06/13/2013 Visit Plan: Shoulder [...] acute bronchitis. 02/21/2013 Appointment: Eleonora Curran WPtel: [address] [place], [place] [address] [facility] 02/21/2013 Patient Education: Patient Medication Summary Completed [...] 3 months. 12/13/2012 Appointment: [facility] Curran [facility]Ptel[phone] Follow up 12/13/2012 Patient Education: Patient Medication Summary Completed 12/13/2012 Patient Education: .Marcelaing uli Diabetic meal planning guide Completed 12/13 Visit [...] medications. 09/23/2012 Appointment: [facility] Curran [facility]Ptel[phone] Follow up 09/23/2012 Patient Education: Patient [...] home. 06/14/2012 Appointment: Talya Hernandez [facility]Ptel[phone] Follow up 06/14/2012 Patient Education: Patient Medication Summary Completed 06/14/2012 Patient Education: Hypertension Completed 06/14/2012 Visit Plan: Eqfay-xtozg-aqbw aches-suspect influenza- patient no indication for tamiflu [...] controlled. 05/21/2012 Appointment: Talya Hernandez WPtel: [phone] [phone] [place] New Patient 05/21/2012 Patient Education: Patient Medication [...] glucose readings are starting to become less controlled.helenza sample - [id number] exp 02/2016 novonordisk Hypertension - well controlled [...] in 3 months. I SENT ZITHROMAX TO [facility]ILLS TODAY AND THEN 1 PILL DAILY UNTIL GONE. I ALSO SENT A PRESCRIPTION FOR DIFLUCAN FOR A YEAST INFECTION. Recommend PROBIOTIC twice daily-lactobacillus. START TODAY. [facility] Align IF THE DIARRHEA PERSISTS OR WORSENS, START FLAGYL 500MG THREE TIMES DAILY-I SENT IT TO [facility]. I will call [facility]ergan with [facility] Okay to take 5- 10ml every 6 hours as needed for cough. . Mflqv-vgdag-jbnj aches-suspect influenza-patient no indication for tamiflu due [...] control. Trulicity started - victoza stopped Plan: ([id number]) FLU VAC NO PRSV 4 SHAKILA 3 [...] dehydration-repeat labs-maintain adequate oral intake-follow up with advertising account executive as scheduled DM-hgb a1c improved-continue with same [...]
[2018-03-09] MEDS ORDERED: LABETALOL HCL 20 MG/4 ML VIAL IV STA (06:39)
--- OUTSIDE RECORDS SUMMARY | 2018-03-09 06:42 | XMS REPORT | CCD ---
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 08/11/2016 Marital status Unknown 05/21/[address]: [id number] Never smoker 05/21/2012 Alcohol history Unknown occasionally drinks alcohol 05/21/2012 Has the patient ever used illegal drugs? Unknown Has never used illegal drugs 05/21/2012 Allergies, Adverse Reactions, Alerts Substance Reaction Codes Entered Date Inactivated Date Status ciprofloxacin hives RxNorm: 98227 11/22/2014 No Inactive Date Active PNEUMOCOCCAL VACCINE diarrhea Unknown 05/21/2012 No Inactive Date Active Past Medical History Illness Codes Condition Status Onset Date Resolved Date Hypothryroidism Unknown Active 11/12/2016 Unknown Encounter for general adult medical examination without abnormal findings ICD-9: V70.0 ICD-10: Z00.00 Active 11/12/2016 Unknown Essential (primary) hypertension ICD-9: 401.1 ICD-10: I10 Active 01/06/2016 Unknown Hypothyroidism, unspecified ICD-9: 244.9 ICD-10: E03.9 Active 01/31/2016 Unknown Mixed hyperlipidemia ICD-9: 272.2 ICD-10: E78.2 Active 08/11/2016 Unknown Type 2 diabetes mellitus without complications ICD-9: 250.00 ICD-10: E11.9 Active 04/11/2014 Unknown Acute upper respiratory infection, unspecified ICD-9: [...] -9: 719.46 ICD-10: M25.561 Active 12/02/2015 Unknown Type 2 diabetes mellitus with hyperglycemia ICD-9: 250.02 ICD-10: E11.65 Active 10/10/2013 Unknown 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] [...] diarrhea ICD-9 : 787.91 Active 01/05/2014 Unknown VACCIN FOR INFLUENZA ICD-9: V04.81 ICD-10: Z23 Active 01/05/2014 Unknown DM W/O COMPLICATION TYPE [...] Problems Condition Codes Effective Dates Condition Status Hypothryroidism Unknown 11/12/2016 Active Encounter for general adult medical examination without abnormal findings ICD-9: V70.0 ICD-10: Z00.00 11/12/2016 Active Essential (primary) hypertension ICD-9: 401.1 ICD-10: I10 01/06/2016 Active Hypothyroidism, unspecified ICD-9: 244.9 ICD-10: E03.9 01/31/2016 Active Mixed hyperlipidemia ICD-9: 272.2 ICD-10: E78.2 08/11/2016 Active Type 2 diabetes mellitus without complications ICD-9: 250.00 ICD-10: E11.9 04/11/2014 Active Acute upper respiratory infection, unspecified ICD-9: [...] ICD -9: 719.46 ICD-10: M25.561 12/02/2015 Active Type 2 diabetes mellitus with hyperglycemia ICD-9: 250.02 ICD-10: E11.65 10/10/2013 Active 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] [...] Chronic diarrhea ICD-9 : 787.91 01/05/2014 Active VACCIN FOR INFLUENZA ICD-9: V04.81 ICD-10: Z23 01/05/2014 Active DM W/O COMPLICATION TYPE II, [...] Start Date Stop Date Status Fill Instructions citalopram 40 mg tablet RxNorm: 248935 TAKE ONE TABLET BY MOUTH ONCE DAILY 05/13/2017 No Stop Date Active potassium chloride ER 10 mEq tablet,extended release RxNorm: 992153 TAKE ONE TABLET BY MOUTH TWICE A WEEK 03/25/2017 No Stop Date Active hydrochlorothiazide 25 mg tablet RxNorm: 645424 TAKE ONE TABLET BY MOUTH ONCE DAILY 02/23/2017 No Stop Date Active levothyroxine 88 mcg tablet RxNorm: 224439 TAKE ONE TABLET BY MOUTH ONCE DAILY 01/28/2017 07/26/2017 Active Trulicity 1.5 mg/0.5 mL subcutaneous pen injector RxNorm: 2017777 INJECT ONE SYRINGE SUBCUTANEOUSLY ONCE A WEEK 01/27/2017 07/13/2017 Active Diflucan 150 mg tablet RxNorm: 327140 1 Tablet(s) PO daily 12/31/2016 Inactive Invokana 100 mg tablet RxNorm: 6740105 1 Tablet(s) PO daily 11/201602/03/2017 Inactive Invokana 100 mg tablet RxNorm: 3669007 1 Tablet(s) PO daily 11/201612/01/2016 Inactive potassium chloride ER 10 mEq tablet,extended release RxNorm: 652453 1 Tablet(s) PO 2 times weekly 11/17/2016 03/16/2017 Inactive potassium chloride ER 10 mEq tablet,extended release RxNorm: 810577 1 Tablet(s) PO BIW 11/17/2016 11/16/2016 Inactive metformin 500 mg tablet RxNorm: 124659 1 Tablet(s) PO BID 11/1712/01/2016 Inactive potassium chloride ER 10 mEq tablet,extended release RxNorm: 729434 1 Tablet(s) PO BIW 11/17/2016 11/16/2016 Inactive Diflucan 150 mg tablet RxNorm: 113952 1 Tablet(s) PO daily 09/18/2016 Inactive Diflucan 150 mg tablet RxNorm: 726375 1 Tablet(s) PO daily 09/23/2016 Inactive amoxicillin 500 mg tablet RxNorm: 143314 1 Tablet(s) PO BID 09/25/2016 Inactive metoprolol succinate ER 50 mg tablet,extended release 24 hr RxNorm: 298734 Tablet (s) TAKE ONE TABLET BY MOUTH ONCE DAILY 08/11/2016 08/05/2017 Active Lipitor 20 mg tablet RxNorm: 701404 1 Tablet(s) PO QPM 201605/02/2018 Active Questran Light 4 gram oral powder RxNorm: 9950781 1 PO TID 10/09/2016 Inactive Trulicity 1.5 mg/0.5 mL subcutaneous pen injector RxNorm: 3953046 0.5 Milliliter(s ) SQ QW 08/11/2016 01/07/2017 Inactive levothyroxine 88 mcg tablet RxNorm: 232709 TAKE ONE TABLET BY MOUTH ONCE DAILY 07/28/2016 01/23/2017 Inactive Trulicity 0.75 mg/0.5 mL subcutaneous pen injector RxNorm: 5823965 INJECT THREE- FOURTHS MG(S) SUBCUTANEOUSLY ONCE A WEEK 07/01/2016 08/10/2016 Inactive metoprolol succinate ER 50 mg tablet,extended release 24 hr RxNorm: 853221 TAKE ONE TABLET BY MOUTH ONCE DAILY 06/11/2016 08/09/2016 Inactive citalopram 40 mg tablet RxNorm: 946685 TAKE ONE TABLET BY MOUTH ONCE DAILY 04/14/2016 05/12/2017 Inactive Diflucan 150 mg tablet RxNorm: 405595 1 Tablet(s) PO daily 01/24/2016 Inactive hydrochlorothiazide 25 mg tablet RxNorm: 442954 Tablet(s) 1 TABLET(S) PO DAILY 01/25/2016 01/18/2017 Inactive Diflucan 150 mg tablet RxNorm: 907831 1 Tablet(s) PO daily 01/31/2016 Inactive Zithromax Z-To 250 mg tablet RxNorm: 314440 1 Tablet(s) PO daily 01/24/2016 01/23/2016 Inactive zpack Zithromax Z-To 250 mg tablet RxNorm: 411930 1 Tablet(s) PO daily 01/24/2016 01/28/2016 Inactive zpack prednisone 10 mg tablets in a dose pack RxNorm: 318764 1 Tablet(s) PO as directed 01/24/2016 01/31/2016 Inactive 6-5-4-3-2-1 Kenalog 40 mg/mL suspension for injection RxNorm: 9816781 Milliliter(s) Inj 01/22/2016 01/22/2016 Inactive prednisone 20 mg tablet RxNorm: 131123 2 Tablet(s) PO daily 01/24/2016 Inactive start tomorrow Trulicity 0.75 mg/0.5 mL subcutaneous pen injector RxNorm: 0510342 0.75 Milligram( s) SQ QW 01/18/2016 06/30/2016 Inactive levothyroxine 88 mcg tablet RxNorm: 192954 TAKE ONE TABLET BY MOUTH ONCE DAILY 01/17/2016 07/14/2016 Inactive Trulicity 0.75 mg/0.5 mL subcutaneous pen injector RxNorm: 9698551 0.75 Milligram( s) SQ QW 12/03/2015 01/01/2016 Inactive Vimovo 500 mg-20 mg tablet,immediate and delay release RxNorm: 174151 1 Tablet(s) PO BID 12/03/2015 03/30/2016 Inactive metoprolol succinate ER 50 mg tablet,extended release 24 hr RxNorm: 835999 1 Tablet(s) PO daily 10/23/2015 05/19/2016 Inactive Trulicity 0.75 mg/0.5 mL subcutaneous pen injector RxNorm: 2017158 0.75 Milligram( s) SQ QW 09/17/2015 10/16/2015 Inactive Victoza 3-To 0.6 mg/0.1 mL (18 mg/3 mL) subcutaneous pen injector RxNorm: 495025 1.8 MILLIGRAM(S) SQ DAILY 07/16/201509/15 Inactive this is just a correction of her current dosing - she does not need a refill levothyroxine 88 mcg tablet RxNorm: 948247 1 TABLET(S) PO DAILY 07/16/2015 01/11/2016 Inactive metoprolol succinate ER 50 mg tablet,extended release 24 hr RxNorm: 579654 1 Tablet(s) PO daily 05/29/2015 10/22/2015 Inactive levothyroxine 88 mcg tablet RxNorm: 782881 1 Tablet(s) PO daily 04/17/2015 07/15/2015 Inactive levothyroxine 88 mcg tablet RxNorm: 718462 1 Tablet(s) PO daily 04/17/2015 04/16/2015 Inactive citalopram 40 mg tablet RxNorm: 526813 1 Tablet(s) PO daily 04/13/2016 Inactive metoprolol tartrate 25 mg tablet RxNorm: 369790 1 Tablet(s) BID 01/17/2015 05/28/2015 Inactive hydrochlorothiazide 25 mg tablet RxNorm: 885576 1 TABLET(S) PO DAILY 01/01/2015 12/26/2015 Inactive Kenalog 40 mg/mL suspension for injection RxNorm: 5662188 Milliliter(s) Inj 11/23/2014 11/23/2014 Inactive Kenalog 40 mg/mL suspension for injection RxNorm: 8434937 60 Milliliter(s) Inj 11/22/2014 11/22/2014 Inactive Zyrtec 10 mg tablet RxNorm: 4286169 1 Tablet(s) PO daily 11/2212/21/2014 Inactive prednisone 10 mg tablets in a dose pack RxNorm: 726374 1 Tablet(s) PO as directed 11/22/2014 05/28/2015 Inactive 6-5-4-3-2-1 Flagyl 500 mg tablet RxNorm: 098424 1 Tablet(s) PO TID 201411/20/2014 Inactive metoprolol tartrate 25 mg tablet RxNorm: 734424 1 Tablet(s) PO BID 09/06/2014 08/10/2016 Inactive metoprolol tartrate 25 mg tablet RxNorm: 269184 1 TABLET(S) PO BID PT TO START WITH 1/2 PILL TWICE DAILY X 1 WEEK, THEN INCREASE TO 1 PILL BID THEREAFTER 09/06/2014 01/16/2015 Inactive citalopram 20 mg tablet RxNorm: 897484 1 Tablet(s) PO daily 02/201503/13/2015 Inactive Victoza 3-To 0.6 mg/0.1 mL (18 mg/3 mL) subcutaneous pen injector RxNorm: 758638 1.8 MILLIGRAM(S) SQ DAILY 09/04/201405/31 Inactive this is just a correction of her current dosing - she does not need a refill metoprolol tartrate 25 mg tablet RxNorm: 320745 1 Tablet(s) PO BID pt to start with 1/2 pill twice daily x 1 week, then increase to 1 pill bid thereafter 08/04/2014 09/02/2014 Inactive Lantus Solostar 100 unit/mL (3 mL) subcutaneous insulin pen RxNorm: 089786 Unit( s) INJECT 10 UNITS SUBCUTANEOUSLY DAILY. DOCTOR WILL ADJUST MEDICATION BASED ON BLOOD GLUCOSE LEVELS 08/04/20142014 Inactive hydrochlorothiazide 25 mg tablet RxNorm: 313650 1 TABLET(S) PO DAILY 07/12/2014 01/24/2016 Inactive hydrochlorothiazide 25 mg tablet RxNorm: 903316 1 Tablet(s) PO daily 07/12/2014 12/31/2014 Inactive acyclovir 400 mg tablet RxNorm: 096687 1 Tablet(s) PO QID 05/0905/08/2014 Inactive acyclovir 400 mg tablet RxNorm: 967700 1 Tablet(s) PO QID 05/0905/15/2014 Inactive alprazolam 0.25 mg tablet RxNorm: 738528 TAKE 1 TABLET BY MOUTH TWICE DAILY NEEDED FOR ANXIETY 04/24/2014 05/23/2014 Inactive (Response to an electronic controlled substance refill request - [facility]: [id number]|1|0|1) metoprolol succinate ER 100 mg tablet,extended release 24 hr RxNorm: 743793 1 TABLET(S) PO DAILY TAKE 1 TABLET BY MOUTH DAILY 04/24/2014 08/03/2014 Inactive Cardizem LA 360 mg tablet,extended release RxNorm: 980697 1 TABLET(S) PO DAILY TAKE 1 TABLET BY MOUTH DAILY 04/24/2014 Inactive metformin ER 500 mg 24 hr tablet,extended release RxNorm: 212444 1 Tablet(s) PO daily 04/11/2014 08/03/2014 Inactive Lantus Solostar 100 unit/mL (3 mL) subcutaneous insulin pen RxNorm: 307793 INJECT 40 UNITS SUBCUTANEOUSLY DAILY. DOCTOR WILL ADJUST MEDICATION BASED ON BLOOD GLUCOSE LEVELS 03/20/20142014 Inactive Bentyl 10 mg capsule RxNorm: 847466 1 Capsule(s) PO TID PRN 02/201405/28/2015 Inactive potassium chloride ER 10 mEq tablet,extended release RxNorm: 898236 1 Tablet(s) PO daily 01/05/2014 01/11/2014 Inactive Lantus Solostar 100 unit/mL (3 mL) subcutaneous insulin pen RxNorm: 986992 45 Unit(s) SQ daily doctor to adjust medications based on blood glucose results 01/05/2014 12/02/2015 Inactive Diovan 320 mg tablet RxNorm: 378803 1 Tablet(s) PO daily 201308/03/2014 Inactive metformin ER 1,000 mg tablet,extended release 24hr RxNorm: 462920 1 Tablet(s) PO daily 10/26/2013 04/10/2014 Inactive Lantus Solostar 100 unit/mL (3 mL) subcutaneous insulin pen RxNorm: 781558 40 Unit(s) SQ daily doctor to adjust medications based on blood glucose results 10/10/2013 01/04/2014 Inactive alprazolam 0.25 mg tablet RxNorm: 496176 1 Tablet(s) PO BID 04/24/2014 Inactive Percocet 5 mg-325 mg tablet RxNorm: 4965540 1-2 Tablet(s) PO Q6 PRN 10/03/2013 05/28/2015 Inactive Celexa 40 mg tablet RxNorm: 511158 Tablet(s) PO TAKE 1 TABLET BY MOUTH DAILY 09/28/2013 09/03/2014 Inactive hydrochlorothiazide 25 mg tablet RxNorm: 888627 1 Tablet(s) PO daily 09/22/2013 06/18/2014 Inactive Lantus Solostar 100 unit/mL (3 mL) subcutaneous insulin pen RxNorm: 429750 35 Unit(s) SQ daily doctor to adjust medications based on blood glucose results 08/02/2013 10/09/2013 Inactive Cardizem LA 360 mg tablet,extended release RxNorm: 505054 1 Tablet(s) PO daily TAKE 1 TABLET BY MOUTH DAILY 07/18/2013 Inactive Cardizem LA 360 mg tablet,extended release RxNorm: 211165 Tablet(s) PO TAKE 1 TABLET BY MOUTH DAILY 07/18/20132014 Inactive metoprolol succinate ER 100 mg tablet,extended release 24 hr RxNorm: 793755 1 Tablet(s) PO daily TAKE 1 TABLET BY MOUTH DAILY 07/18/2013 04/13/2014 Inactive metoprolol succinate ER 100 mg tablet,extended release 24 hr RxNorm: 386593 Tablet (s) PO TAKE 1 TABLET BY MOUTH DAILY 07/18/2013 08/03/2014 Inactive Lantus Solostar 100 unit/mL (3 mL) subcutaneous insulin pen RxNorm: 736882 30 Unit(s) SQ daily doctor to adjust medications based on blood glucose results 07/04/2013 08/01/2013 Inactive Victoza 3-To 0.6 mg/0.1 mL (18 mg/3 mL) subcutaneous pen injector RxNorm: 244902 1.8 Milligram(s) SQ daily 06/30/201303/26 Inactive this is just a correction of her current dosing - she does not need a refill metformin ER 1,000 mg tablet,extended release 24hr RxNorm: 169782 1 Tablet(s) PO daily 06/30/2013 10/25/2013 Inactive Lantus Solostar 100 unit/mL (3 mL) subcutaneous insulin pen RxNorm: 082976 20 Unit(s) SQ daily doctor to adjust medications based on blood glucose results 06/30/2013 07/03/2013 Inactive Lantus Solostar 100 unit/mL (3 mL) subcutaneous insulin pen RxNorm: 203199 15 Unit(s) SQ daily doctor to adjust medications based on blood glucose results 06/23/2013 06/29/2013 Inactive Victoza 3-To 0.6 mg/0.1 mL (18 mg/3 mL) subcutaneous pen injector RxNorm: 258310 3mg Milliliter(s) SQ daily 90 days worth 06/20/2013 06/29/2013 Inactive hydrochlorothiazide 25 mg tablet RxNorm: 377765 1 Tablet(s) PO daily 06/13/2013 09/21/2013 Inactive ketorolac 60 mg/2 mL intramuscular solution RxNorm: 249967 2 Milliliter(s) IM 06/06/2013 06/06/2013 Inactive Lantus Solostar 100 unit/mL (3 mL) subcutaneous insulin pen RxNorm: 803055 10 Unit(s) SQ daily doctor to adjust medications based on blood glucose results 06/06/2013 06/22/2013 Inactive naproxen 500 mg tablet RxNorm: 283098 1 Tablet(s) PO BID 201308/04/2013 Inactive hydrochlorothiazide 25 mg tablet RxNorm: 825556 1 Tablet(s) PO daily 06/06/2013 06/12/2013 Inactive Victoza 3-To 0.6 mg/0.1 mL (18 mg/3 mL) subcutaneous pen injector RxNorm: 111440 3mg Milliliter(s) SQ daily 90 days worth 05/19/2013 06/19/2013 Inactive Diflucan 150 mg tablet RxNorm: 983219 1 Tablet(s) PO daily 05/12/2013 Inactive Diflucan 150 mg tablet RxNorm: 904602 1 Tablet(s) PO daily 05/19/2013 Inactive Cardizem LA 360 mg tablet,extended release RxNorm: 356325 Tablet(s) PO TAKE 1 TABLET BY MOUTH DAILY 04/22/20132013 Inactive metoprolol succinate ER 100 mg tablet,extended release 24 hr RxNorm: 730201 Tablet (s) PO TAKE 1 TABLET BY MOUTH DAILY 04/14/2013 07/17/2013 Inactive Diflucan 150 mg tablet RxNorm: 818040 1 Tablet(s) PO daily 03/28/2013 Inactive Diflucan 150 mg tablet RxNorm: 384829 1 Tablet(s) PO daily 03/21/2013 Inactive Diovan 320 mg tablet RxNorm: 108990 1 Tablet(s) PO daily 201212/09/2013 Inactive cefdinir 300 mg capsule RxNorm: 970732 1 Capsule(s) PO BID 02/25/2013 Inactive Phenergan with Codeine Syrup RxNorm: 5-10 Milliliter(s) PO Q6 PRN USE PRN FOR COUGH 02/21/2013 03/20/2013 Inactive 8 OUNCES Victoza 3-To 0.6 mg/0.1 mL (18 mg/3 mL) subcutaneous pen injector RxNorm: 960634 3mg Milliliter(s) SQ daily 90 days worth 12/09/2012 03/08/2013 Inactive scopolamine 1.5 mg transdermal 72 hour patch RxNorm: 174304 1 Patch TD Q72H 10/26/2012 01/04/2014 Inactive scopolamine 1.5 mg 72 hr Transderm Patch RxNorm: 671681 1 Patch TD Q72H 10/26/2012 10/25/2012 Inactive metformin ER 1,000 mg tablet,extended release 24hr RxNorm: 585598 1 Tablet(s) PO BID 10/11/2012 06/29/2013 Inactive Victoza 3-To 0.6 mg/0.1 mL (18 mg/3 mL) Sub-Q Pen Injector RxNorm: 110092 1.8 Milliliter(s) SQ daily 1.8 mg dose daily 09/23/2012 12/08/2012 Inactive Victoza 3-To 0.6 mg/0.1 mL (18 mg/3 mL) Sub-Q Pen Injector RxNorm: 106909 3.0 Milliliter(s) SQ daily 1.2 + 1.8 mg dose daily 201209/22/2012 Inactive Celexa 40 mg tablet RxNorm: 245050 1 Tablet(s) PO daily TAKE ONE TABLET BY MOUTH DAILY 09/21/2012 05/18/2013 Inactive Cardizem LA 360 mg tablet,extended release RxNorm: 189865 1 Tablet(s) PO daily 07/20/2012 04/15/2013 Inactive metoprolol succinate ER 100 mg tablet,extended release 24 hr RxNorm: 620537 1 Tablet(s) PO daily 07/20/2012 04/13/2013 Inactive Byetta 10 mcg/0.04 mL per dose Sub-Q Pen Injector RxNorm: 076461 1 Milliliter(s) SQ BID 06/18/2012 09/22/2012 Inactive Diovan 320 mg tablet RxNorm: 678573 1 Tablet(s) PO daily 201203/14/2013 Inactive metformin ER 1,000 mg tablet,extended release 24hr RxNorm: 626899 1 Tablet(s) PO BID 06/14/2012 09/11/2012 Inactive metformin ER 1,000 mg tablet,extended release 24hr RxNorm: 041250 1 Tablet(s) PO 06/14/2012 06/13/2012 Inactive Livalo 4 mg tablet RxNorm: 311895 1 Tablet(s) PO daily 201201/04/2014 Inactive Celexa 40 mg tablet RxNorm: 933186 1 Tablet(s) PO daily 201209/21/2012 Inactive Accu-Chek Instant Glucose Test Strips RxNorm: 1 Miscellaneous daily accucheck ratna glucometer 05/21/2012 06/14/2013 Inactive Diflucan 150 mg tablet RxNorm: 533950 1 Tablet(s) PO daily 05/26/2012 Inactive Flagyl 500 mg tablet RxNorm: 687929 1 Tablet(s) PO TID 201205/27/2012 Inactive Minivelle 0.0375 mg/24 hr transdermal patch RxNorm: 6981803 1 Patch TD BIW No Start Date Active aspirin 81 mg tablet RxNorm: 740019 1 Tablet(s) PO daily No Start Date Active Cardizem LA 360 mg tablet,extended release RxNorm: 618697 1 Tablet(s) PO daily No Start Date 07/19/2012 Inactive metformin ER 750 mg tablet,extended release 24 hr RxNorm: 282792 1 Tablet(s) PO TID No Start Date 06/13/2012 Inactive Zithromax Z-To 250 mg tablet RxNorm: 143220 Tablet(s) PO No Start Date 06/13/2012 Inactive Diovan 320 mg tablet RxNorm: 476221 1 Tablet(s) PO daily No Start Date 06/17/2012 Inactive Byetta 10 mcg/0.04 mL per dose Sub-Q Pen Injector RxNorm: 366526 1 Milliliter(s) SQ BID No Start Date 06/17/2012 Inactive Vivelle 0.05 mg/24 hr Transderm Patch RxNorm: 968962 1 Patch TD S3sftrf No Start Date 12/03/2015 Inactive Fish Oil 1,000 mg capsule RxNorm: 1 Capsule(s) PO BID No Start Date 05/29/2015 Inactive Celexa 40 mg tablet RxNorm: 886770 1 Tablet(s) PO daily No Start Date 06/09/2012 Inactive levothyroxine 100 mcg tablet RxNorm: 944638 1 Tablet(s) PO daily No Start Date 04/16/2015 Inactive Fish Oil 1,000 mg capsule RxNorm: 1 Capsule(s) PO daily No Start Date 12/02/2015 Inactive Vitamin B-12 1,000 mcg/mL oral drops RxNorm: 7304002 1 Milliliter(s) PO daily No Start Date 12/02/2015 Inactive metoprolol succinate ER 100 mg tablet,extended release 24 hr RxNorm: 971455 1 Tablet(s) PO daily No Start Date 2012 Inactive promethazine-codeine 6.25 mg-10 mg/5 mL Syrup RxNorm: 547687 5-10 Milliliter(s) PO Q6 PRN No Start Date 12/12/2012 Inactive Percocet 5 mg-325 mg tablet RxNorm: 2764114 1-2 Tablet(s) PO Q6 PRN No Start Date 10/02/2013 Inactive hydrochlorothiazide 25 mg tablet RxNorm: 046069 1 Tablet(s) PO daily No Start Date 06/05/2013 Inactive Victoza 2-To 0.6 mg/0.1 mL (18 mg/3 mL) subcutaneous pen injector RxNorm: 952881 Milligram(s) SQ 1.8mg daily No Start Date 09/13/2013 Inactive Livalo 4 mg tablet RxNorm: 377141 1 Tablet(s) PO daily No Start Date 06/09/2012 Inactive Medication Administered Medication Codes Instructions Start Date Status Kenalog 40 mg/mL suspension for injection RxNorm: 8916082 Milliliter 01/22/2016 No longer Active Kenalog 40 mg/mL suspension for injection RxNorm: 6981891 Milliliter 11/23/2014 No longer Active Kenalog 40 mg/mL suspension for injection RxNorm: 6833854 Milliliter 11/22/2014 No longer Active ketorolac 60 mg/2 mL intramuscular solution RxNorm: 956704 2Milliliter 06/06/2013 No longer Active Immunizations Vaccine Codes Date Status Influenza CVX: 141 01/05/2014 completed Influenza CVX: 141 04/22/2013 completed Influenza CVX: 141 02/04/2012 completed Assessments Condition Codes Effective Dates Hypothyroidism, unspecified ICD-10: E03.9 ICD-9: 244.9 11/12/2016 Mixed hyperlipidemia ICD-10: E78.2 ICD-9: 272.2 11/12/2016 Type 2 diabetes mellitus without complications ICD-10: E11.9 ICD-9: 250.00 11/12/2016 Essential (primary) hypertension ICD-10: I10 ICD-9: 401.1 11/12/2016 Encounter for general adult medical examination without abnormal findings ICD-10: Z00.00 ICD-9: V70.0 11/12/2016 Allergic rhinitis due to pollen ICD-10: J30.1 ICD-9: 477.0 09/16/2016 Acute upper respiratory infection, unspecified ICD-10: J06.9 ICD-9: 465.9 09/16/2016 Functional diarrhea ICD-10: K59.1 ICD-9: 564.5 08/11/2016 Essential (primary) hypertension ICD-10: I10 ICD-9: 401.9 07/04/2016 Cramp and spasm ICD-10: R25.2 ICD-9: 729.82 03/31/2016 Nausea ICD-10: R11.0 ICD-9: 787.02 03/31/2016 Gastro-esophageal reflux disease without esophagitis ICD-10 : K21.9 ICD-9: 530.81 02/01/2016 Cough ICD-10: R05 ICD-9: 786.2 02/01/2016 Acute bronchitis, unspecified ICD-10: J20.9 ICD-9: 466.0 01/22/2016 Dysphagia, pharyngeal phase ICD-10: R13.13 ICD-9: 787.23 01/07/2016 Pain in right knee ICD-10: M25.561 ICD-9: 719.46 12/03/2015 Type 2 diabetes mellitus with hyperglycemia ICD-10: E11.65 ICD-9: 250.02 09/17/2015 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] ICD-10: Z90.3 ICD-9: V45.89 05/29/2015 Paresthesia of skin ICD-10: R20.2 ICD-9: 782.0 05/29/2015 Mixed hyperlipidemia ICD-10: E78.2 ICD-9: 272.4 04/11/2015 Other obesity ICD-10: E66.8 ICD-9: 278.00 04/11/2015 Diabetes mellitus, type II ICD-9: 250.00 12/12/2014 ESSENTIAL HYPERTENSION ICD-9: 401.9 12/12 ESOPHAGEAL REFLUX ICD-9: 530.81 2014 ALLERGIC URTICARIA ICD-9: 708.0 2014 Status post gastric surgery ICD-9: V45.89 11/14/2014 Abdominal pain ICD-9: 789.00 11/14/2014 OBESITY ICD-9: 278.00 09/04/2014 Decreased renal function ICD-9: 593.9 Thyroid nodule ICD-9: 241.0 04/11/2014 VACCIN FOR INFLUENZA ICD-10: Z23 ICD-9: V04.81 01/05/2014 DM W/O COMPLICATION TYPE II, UNCONTROLLED ICD-9: 250.02 01/05/2014 Chronic diarrhea ICD-9: 787.91 2013 Generalized anxiety disorder ICD-9: 300.02 10/10/2013 Shoulder pain, right ICD-9: 719.41 2013 INSOMNIA NOS ICD-9: 780.52 08/02/2013 MYALGIA AND MYOSITIS ICD-9: 729.1 2013 COUGH ICD-9: 786.2 06/30/2013 Acute bronchitis ICD-9: 466.0 02/21/2013 Dietary counseling and surveillance ICD-9: V65.3 12/13/2012 HYPERLIPIDEMIA ICD-9: 272.4 09/23/2012 Influenza ICD-9: 487.1 05/21/2012 FEVER NOS ICD-9: 780.60 05/21/2012 Reason For Visit Reason For Visit Effective Dates Notes hypertension 11/12/2016 hypertension 08/11/2016 vomiting 03/31/2016 shortness [...] Observation Code Item Item Code Result Date Comp Metabolic Byi635 NA 143 mEq/L 11/12/2016 Comp Metabolic Pvn562 K 3.3 mEq/L 11/12/2016 Comp Metabolic Ibl108 CL 102 mEq/L 11/12/2016 Comp Metabolic Gna588 CO2 30.0 mEq/L 11/12/2016 Comp Metabolic Zmw611 ANION GAP 14 11/12/2016 Comp Metabolic Flq574 GLUCOSE 141 mg/dL 11/12/2016 Comp Metabolic Zni530 Creat 0.8 mg/dL 11/12/2016 Comp Metabolic Uen440 eGFR 76 ml/min/1.73m2 11/12/2016 Comp Metabolic Hel796 BUN 11 mg/dL 11/12/2016 Comp Metabolic Svq651 B/C Ratio 13.3 Ratio 11/12/2016 Comp Metabolic Njp877 CALCIUM 9.2 mg/dL 11/12/2016 Comp Metabolic Izu697 ALK PHOS 116 U/L 11/12/2016 Comp Metabolic Ojl378 AST(SGOT) 21 U/L 11/12/2016 Comp Metabolic Kqc499 ALT(SGPT) 28 U/L 11/12/2016 Comp Metabolic Egw207 BILI T 0.5 mg/dL 11/12/2016 Comp Metabolic Lce086 ALBUMIN 3.8 g/dL 11/12/2016 Comp Metabolic Wqu470 TPRO 6.4 g/dL 11/12/2016 Comp Metabolic Dyh637 GLOB 2.6 g/dL 11/12/2016 Comp Metabolic Aov653 A/G Ratio 1.5 Ratio 11/12/2016 Comp Metabolic Bph571 Osmo 287 mOsmo 11/12/2016 Free T4 Gbg031 FREE T4 0.91 ng/dL 11/12/2016 %Hba1C Aoi322 % HbA1c 68845-7 7.5 % 11/12/2016 %Hba1C Azl774 Gluc Ave 169 mg/dL 11/12/2016 Tsh Ord6 hTSH II 1.59 uIU/mL 11/12/2016 Cbc With Differential Ord2 WBC 8.69 [...] 30.3 pg 11/12/2016 Cbc With Differential Ord2 Hardin% 5.8 % 11/12/2016 Cbc With Differential Ord2 MCHC 33.3 pg 11/12/2016 Cbc With Differential Ord2 Eos% 1.7 % 11/12/2016 Cbc With Differential Ord2 PLT 301 K/ul 11/12/2016 Cbc With Differential Ord2 Baso% 0.5 % 11/12/2016 Cbc With Differential Ord2 Neut ABS# 6.53 K/ul 11/12/2016 Cbc With Differential Ord2 RDW 13.1 % 11/12/2016 Cbc With Differential Ord2 Lymph ABS# 1.47 K/ul 11/12/2016 Cbc With Differential Ord2 Hardin ABS# 0.5 K/ul 11/12/2016 Cbc With Differential Ord2 Eos ABS# 0.2 K/ul 11/12/2016 Cbc With Differential Ord2 Baso ABS# 0.0 K/ul 11/12/2016 Lipid Ord30 CHOL 156 mg/dL 11/12/2016 Lipid Ord30 HDL 50.0 mg/dl 11/12/2016 Lipid Ord30 TRIG 153 mg/dL 11/12/2016 Lipid Ord30 LDL 75 mg/dL 11/12/2016 Lipid Ord30 C/HDL 3.1 Ratio 11/12/2016 Tsh Ord6 hTSH II 1.21 uIU/mL 07/04/2016 %Hba1C Jqk778 % HbA1c 46142-7 7.1 % 07/04/2016 %Hba1C Mzn578 Gluc Ave 157 mg/dL 07/04/2016 Free T4 Qkp887 FREE T4 0.87 ng/dL 07/04/2016 Comp Metabolic Tbh658 NA 141 mEq/L 07/04/2016 Comp Metabolic Aol280 K 3.5 mEq/L 07/04/2016 Comp Metabolic Hgr712 CL 100 mEq/L 07/04/2016 Comp Metabolic Nwz488 CO2 34.0 mEq/L 07/04/2016 Comp Metabolic Fjq237 ANION GAP 11 07/04/2016 Comp Metabolic Nwm842 GLUCOSE 144 mg/dL 07/04/2016 Comp Metabolic Rgd025 Creat 0.8 mg/dL 07/04/2016 Comp Metabolic Ihn673 eGFR 75 ml/min/1.73m2 07/04/2016 Comp Metabolic Woc289 BUN 10 mg/dL 07/04/2016 Comp Metabolic Egz524 B/C Ratio 11.9 Ratio 07/04/2016 Comp Metabolic Tlk967 CALCIUM 9.4 mg/dL 07/04/2016 Comp Metabolic Ymx793 ALK PHOS 116 U/L 07/04/2016 Comp Metabolic Acp763 AST(SGOT) 16 U/L 07/04/2016 Comp Metabolic Eoz126 ALT(SGPT) 17 U/L 07/04/2016 Comp Metabolic Mbx131 BILI T 0.6 mg/dL 07/04/2016 Comp Metabolic Okh524 ALBUMIN 4.3 g/dL 07/04/2016 Comp Metabolic Ynn929 TPRO 7.0 g/dL 07/04/2016 Comp Metabolic Jbu430 GLOB 2.7 g/dL 07/04/2016 Comp Metabolic Ypt052 A/G Ratio 1.6 Ratio 07/04/2016 Comp Metabolic Myv467 Osmo 283 mOsmo 07/04/2016 Lipid Ord30 CHOL 282 mg/dL 07/04/2016 Lipid Ord30 HDL 53.0 mg/dl 07/04/2016 Lipid Ord30 TRIG 136 mg/dL 07/04/2016 Lipid Ord30 LDL 202 mg/dL 07/04/2016 Lipid Ord30 C/HDL 5.3 Ratio 07/04/2016 Cbc With Differential Ord2 WBC 7.98 K/ul 07/04/2016 Cbc With Differential Ord2 RBC 5.08 M/ul 07/04/2016 Cbc With Differential Ord2 HGB 15.1 g/dl 07/04/2016 Cbc With Differential Ord2 HCT 45.5 % 07/04/2016 Cbc With Differential Ord2 Neut% 76.8 % 07/04/2016 Cbc With Differential Ord2 MCV 89.6 fl 07/04/2016 Cbc With Differential Ord2 Lymph% 13.8 % 07/04/2016 Cbc With Differential Ord2 MCH 29.7 pg 07/04/2016 Cbc With Differential Ord2 Hardin% 7.1 % 07/04/2016 Cbc With Differential Ord2 [...] 1.10 K/ul 07/04/2016 Cbc With Differential Ord2 Hardin ABS# 0.6 K/ul 07/04/2016 Cbc With Differential Ord2 Eos ABS# 0.1 K/ul 07/04/2016 Cbc With Differential Ord2 Baso ABS# 0.1 K/ul 07/04/2016 Cbc With Differential Ord2 WBC 5.56 [...] 29.9 pg 03/31/2016 Cbc With Differential Ord2 Hardin% 6.5 % 03/31/2016 Cbc With Differential Ord2 Eos% 1.8 % 03/31/2016 Cbc With Differential Ord2 MCHC 32.9 pg 03/31/2016 Cbc With Differential Ord2 PLT 252 K/ul 03/31/2016 Cbc With Differential Ord2 Baso% 0.2 % 03/31/2016 Cbc With Differential Ord2 RDW 13.6 % 03/31/2016 Cbc With Differential Ord2 Neut ABS# 3.87 K/ul 03/31/2016 Cbc With Differential Ord2 Lymph ABS# 1.22 K/ul 03/31/2016 Cbc With Differential Ord2 [place] ABS# 0.4 K/ul 03/31/2016 Cbc With Differential Ord2 Eos ABS# 0.1 K/ul 03/31/2016 Cbc With Differential Ord2 Baso ABS# 0.0 K/ul 03/31/2016 Comp Metabolic Rgl554 NA 137 mEq/L 03/31/2016 Comp Metabolic Lfu953 K 3.3 mEq/L 03/31/2016 Comp Metabolic Nen437 CL 101 mEq/L 03/31/2016 Comp Metabolic Kil465 CO2 26.0 mEq/L 03/31/2016 Comp Metabolic Ybr253 ANION GAP 13 03/31/2016 Comp Metabolic Bra386 GLUCOSE 150 mg/dL 03/31/2016 Comp Metabolic Ryf404 Creat 0.9 mg/dL 03/31/2016 Comp Metabolic Buk822 eGFR 71 ml/min/1.73m2 03/31/2016 Comp Metabolic Lws891 BUN 13 mg/dL 03/31/2016 Comp Metabolic Hjf768 B/C Ratio 14.8 Ratio 03/31/2016 Comp Metabolic Roq962 CALCIUM 8.8 mg/dL 03/31/2016 Comp Metabolic Kef251 ALK PHOS 103 U/L 03/31/2016 Comp Metabolic Ltd283 AST(SGOT) 18 U/L 03/31/2016 Comp Metabolic Sws024 ALT(SGPT) 21 U/L 03/31/2016 Comp Metabolic Udw209 BILI T 0.4 mg/dL 03/31/2016 Comp Metabolic Hmw046 ALBUMIN 3.9 g/dL 03/31/2016 Comp Metabolic Gaa078 TPRO 6.5 g/dL 03/31/2016 Comp Metabolic Elj441 GLOB 2.6 g/dL 03/31/2016 Comp Metabolic Pqx811 A/G Ratio 1.5 Ratio 03/31/2016 Comp Metabolic Nra155 Osmo 277 mOsmo 03/31/2016 Cbc With Differential [...] 30.4 pg 02/12/2016 Cbc With Differential Ord2 Hardin% 7.0 % 02/12/2016 Cbc With Differential Ord2 MCHC 33.2 pg 02/12/2016 Cbc With Differential Ord2 Eos% 1.9 % 02/12/2016 Cbc With Differential Ord2 Baso% 0.9 % 02/12/2016 Cbc With Differential Ord2 PLT 345 K/ul 02/12/2016 Cbc With Differential Ord2 RDW 13.7 % 02/12/2016 Cbc With Differential Ord2 Neut ABS# 6.72 K/ul 02/12/2016 Cbc With Differential Ord2 Lymph ABS# 2.42 K/ul 02/12/2016 Cbc With Differential Ord2 [place] ABS# 0.7 K/ul 02/12/2016 Cbc With Differential Ord2 Eos ABS# 0.2 K/ul 02/12/2016 Cbc With Differential Ord2 Baso ABS# 0.1 K/ul 02/12/2016 Comp Metabolic Cmx102 NA 138 mEq/L 02/01/2016 Comp Metabolic Oxs073 K 4.3 mEq/L 02/01/2016 Comp Metabolic Iyh082 CL 101 mEq/L 02/01/2016 Comp Metabolic Fhl742 CO2 27.0 mEq/L 02/01/2016 Comp Metabolic Gzs949 ANION GAP 14 02/01/2016 Comp Metabolic Thy300 GLUCOSE 127 mg/dL 02/01/2016 Comp Metabolic Ueb927 Creat 1.0 mg/dL 02/01/2016 Comp Metabolic Gpp258 eGFR 61 ml/min/1.73m2 02/01/2016 Comp Metabolic Fsu399 BUN 21 mg/dL 02/01/2016 Comp Metabolic Dvb960 B/C Ratio 20.8 Ratio 02/01/2016 Comp Metabolic Rbu752 CALCIUM 9.1 mg/dL 02/01/2016 Comp Metabolic Teb837 ALK PHOS 105 U/L 02/01/2016 Comp Metabolic Qwl519 AST(SGOT) 14 U/L 02/01/2016 Comp Metabolic Ytl903 ALT(SGPT) 26 U/L 02/01/2016 Comp Metabolic Ufc524 BILI T 0.4 mg/dL 02/01/2016 Comp Metabolic Zcg594 ALBUMIN 3.9 g/dL 02/01/2016 Comp Metabolic Ewh985 TPRO 6.7 g/dL 02/01/2016 Comp Metabolic Nnj140 GLOB 2.8 g/dL 02/01/2016 Comp Metabolic Fqj864 A/G Ratio 1.4 Ratio 02/01/2016 Comp Metabolic Vco478 Osmo 280 mOsmo 02/01/2016 Cbc With Differential Ord2 WBC 13.41 K/ul 02/01/2016 Cbc With Differential Ord2 RBC 5.06 M/ul 02/01/2016 Cbc With Differential Ord2 HGB 15.4 g/dl 02/01/2016 Cbc With Differential Ord2 HCT 46.3 % 02/01/2016 Cbc With Differential Ord2 Neut% 64.4 % 02/01/2016 Cbc With Differential Ord2 Lymph% 27.9 % 02/01/2016 Cbc With Differential Ord2 MCV 91.5 fl 02/01/2016 Cbc With Differential Ord2 MCH 30.4 pg 02/01/2016 Cbc With Differential Ord2 Hard[place]% 5.8 % 02/01/2016 Cbc With Differential Ord2 MCHC 33.3 pg 02/01/2016 Cbc With Differential Ord2 Eos% 1.6 % 02/01/2016 Cbc With Differential Ord2 Baso% 0.3 % 02/01/2016 Cbc With Differential Ord2 PLT 392 K/ul 02/01/2016 Cbc With Differential Ord2 Neut ABS# 8.63 K/ul 02/01/2016 Cbc With Differential Ord2 RDW 13.6 % 02/01/2016 Cbc With Differential Ord2 Lymph ABS# 3.74 K/ul 02/01/2016 Cbc With Differential Ord2 Hardin ABS# 0.8 K/ul 02/01/2016 Cbc With Differential Ord2 Eos ABS# 0.2 K/ul 02/01/2016 Cbc With Differential Ord2 Baso ABS# 0.0 K/ul 02/01/2016 Tsh Ord6 hTSH II 2.00 uIU/mL 02/01/2016 %Hba1C Esp706 % HbA1c 31165-9 6.9 % 01/07/2016 %Hba1C Gor426 Gluc Ave 151 mg/dL 01/07/2016 Tsh Ord6 hTSH II 0.99 uIU/mL 11/08/2015 Free T4 Rsz367 FREE T4 1.01 ng/dL 11/08/2015 %Hba1C Pkm618 % HbA1c 94462-0 6.6 % 09/14/2015 %Hba1C Zkc545 Gluc Ave 143 mg/dL 09/14/2015 Lipid Ord30 CHOL 268 mg/dL 09/12/2015 Lipid Ord30 HDL 55.0 mg/dl 09/12/2015 Lipid Ord30 TRIG 146 mg/dL 09/12/2015 Lipid Ord30 LDL 184 mg/dL 09/12/2015 Lipid Ord30 C/HDL 4.9 Ratio 09/12/2015 Comp Metabolic Gaj833 NA 139 mEq/L 09/12/2015 Comp Metabolic Hgz185 K 3.7 mEq/L 09/12/2015 Comp Metabolic Mfc063 CL 102 mEq/L 09/12/2015 Comp Metabolic Wop286 CO2 30.0 mEq/L 09/12/2015 Comp Metabolic Ghw872 ANION GAP 11 09/12/2015 Comp Metabolic Xkc103 GLUCOSE 135 mg/dL 09/12/2015 Comp Metabolic Hin124 Creat 0.8 mg/dL 09/12/2015 Comp Metabolic Xfq480 eGFR 86 ml/min/1.73m2 09/12/2015 Comp Metabolic Jhv823 BUN 10 mg/dL 09/12/2015 Comp Metabolic Sac882 B/C Ratio 13.3 Ratio 09/12/2015 Comp Metabolic Tsm854 CALCIUM 8.8 mg/dL 09/12/2015 Comp Metabolic Cni016 ALK PHOS 95 U/L 09/12/2015 Comp Metabolic Xuw098 AST(SGOT) 18 U/L 09/12/2015 Comp Metabolic Mdv826 ALT(SGPT) 20 U/L 09/12/2015 Comp Metabolic Ijq828 BILI T 0.5 mg/dL 09/12/2015 Comp Metabolic Avp828 ALBUMIN 3.9 g/dL 09/12/2015 Comp Metabolic Hhm737 TPRO 6.5 g/dL 09/12/2015 Comp Metabolic Nwb865 GLOB 2.6 g/dL 09/12/2015 Comp Metabolic Wil393 A/G Ratio 1.5 Ratio 09/12/2015 Comp Metabolic Oor867 Osmo 279 mOsmo 09/12/2015 Cbc With Differential Ord2 WBC 6.92 K/ul 09/12/2015 Cbc With Differential Ord2 RBC 4.89 M/ul 09/12/2015 Cbc With Differential Ord2 HGB 14.6 g/dl 09/12/2015 Cbc With Differential Ord2 HCT 43.7 % 09/12/2015 Cbc With Differential Ord2 Neut% 70.4 % 09/12/2015 Cbc With Differential Ord2 Lymph% 21.4 % 09/12/2015 Cbc With Differential Ord2 MCV 89.4 fl 09/12/2015 Cbc With Differential Ord2 Hardin% 5.9 % 09/12/2015 Cbc With Differential Ord2 [...] 1.48 K/ul 09/12/2015 Cbc With Differential Ord2 Hardin ABS# 0.4 K/ul 09/12/2015 Cbc With Differential Ord2 Eos ABS# 0.1 K/ul 09/12/2015 Cbc With Differential Ord2 Baso ABS# 0.0 K/ul 09/12/2015 Cbc With Differential Ord2 New Analyzer Notice Please note new ref ranges starting 05-09-2015 due to implemntation of new five part differential hematolgy analyzer. 09/12/2015 Tsh Ord6 hTSH II 0.81 uIU/mL 08/01/2015 Free T4 Tuw330 FREE T4 0.82 ng/dL 08/01/2015 Vitamin B12 224011 VITAMIN B12 TEST NOT PERFORMED pg/mL 2015 Vitamin D 25 Oh Dkv5545 VITAMIN D, 25 HYDROXY 50.78 ng/mL Tsh Ord6 hTSH II 0.18 uIU/mL 04/12/2015 Lipid Ord30 CHOL 182 mg/dL 04/12/2015 Lipid Ord30 HDL 36.0 mg/dl 04/12/2015 Lipid Ord30 TRIG 82 mg/dL 04/12/2015 Lipid Ord30 LDL 130 mg/dL 04/12/2015 Lipid Ord30 C/HDL 5.1 Ratio 04/12/2015 %Hba1C Wjr810 % HbA1c 76172-4 6.4 % 04/12/2015 %Hba1C Rhc257 Gluc Ave 137 mg/dL 04/12/2015 Comp Metabolic Hoc478 NA 142 mEq/L 04/12/2015 Comp Metabolic Hwk901 K 3.5 mEq/L 04/12/2015 Comp Metabolic Wwn447 CL 102 mEq/L 04/12/2015 Comp Metabolic Plk592 CO2 32.0 mEq/L 04/12/2015 Comp Metabolic Gti516 ANION GAP 12 04/12/2015 Comp Metabolic Bwj127 GLUCOSE 130 mg/dL 04/12/2015 Comp Metabolic Fju053 Creat 0.8 mg/dL 04/12/2015 Comp Metabolic Qza740 eGFR 78 ml/min/1.73m2 04/12/2015 Comp Metabolic Irf549 BUN 12 mg/dL 04/12/2015 Comp Metabolic Qfh093 B/C Ratio 14.6 Ratio 04/12/2015 Comp Metabolic Tia118 CALCIUM 8.9 mg/dL 04/12/2015 Comp Metabolic Zlf619 ALK PHOS 95 U/L 04/12/2015 Comp Metabolic Nqp151 AST(SGOT) 21 U/L 04/12/2015 Comp Metabolic Bcq405 ALT(SGPT) 23 U/L 04/12/2015 Comp Metabolic Csf938 BILI T 0.4 mg/dL 04/12/2015 Comp Metabolic Emy332 ALBUMIN 3.9 g/dL 04/12/2015 Comp Metabolic Eqs332 TPRO 6.3 g/dL 04/12/2015 Comp Metabolic Buc227 GLOB 2.4 g/dL 04/12/2015 Comp Metabolic Mvh623 A/G Ratio 1.6 Ratio 04/12/2015 Comp Metabolic Hkv606 Osmo 285 mOsmo 04/12/2015 Free T4 Kwq278 FREE T4 1.13 ng/dL 04/12/2015 Cbc With [...] With Differential Ord2 RDW 12.8 % 04/12/2015 Comp Metabolic Jao263 NA 137 mEq/L 11/14/2014 Comp Metabolic Crd909 K 3.6 mEq/L 11/14/2014 Comp Metabolic Ogf774 CL 98 mEq/L 11/14/2014 Comp Metabolic Jpi675 CO2 31.0 mEq/L 11/14/2014 Comp Metabolic Bwe812 ANION GAP 12 11/14/2014 Comp Metabolic Yez078 GLUCOSE 110 mg/dL 11/14/2014 Comp Metabolic Vaw744 Creat 0.8 mg/dL 11/14/2014 Comp Metabolic Wzr085 eGFR 81 ml/min/1.73m2 11/14/2014 Comp Metabolic Lbx875 BUN 14 mg/dL 11/14/2014 Comp Metabolic Rie650 B/C Ratio 17.7 Ratio 11/14/2014 Comp Metabolic Zxc708 CALCIUM 9.2 mg/dL 11/14/2014 Comp Metabolic Kqf073 ALK PHOS 135 U/L 11/14/2014 Comp Metabolic Nkj624 AST(SGOT) 17 U/L 11/14/2014 Comp Metabolic Asi351 ALT(SGPT) 20 U/L 11/14/2014 Comp Metabolic Hhu123 BILI T 0.3 mg/dL 11/14/2014 Comp Metabolic Bcv215 ALBUMIN 3.7 g/dL 11/14/2014 Comp Metabolic Chq427 TPRO 6.5 g/dL 11/14/2014 Comp Metabolic Vja289 GLOB 2.8 g/dL 11/14/2014 Comp Metabolic Mll217 A/G Ratio 1.3 Ratio 11/14/2014 Comp Metabolic Bbu742 Osmo 275 mOsmo 11/14/2014 Cbc With Differential Ord2 WBC 10.9 K/uL [...] With Differential Ord2 RDW 14.6 % 11/14/2014 CHEM 14 0481320 AST 18 U/L 04/11/2014 CHEM 14 3386222 ALT 25 IU/L 04/11/2014 CHEM 14 3522526 BUN 13 MG/DL 04/11/2014 CHEM 14 7148928 ALBUMIN 4.1 GM/DL 04/11/2014 CHEM 14 6880869 CHLORIDE 103 MMOL/L 04/11/2014 CHEM 14 8892403 BILI TOT 0.3 MG/DL 04/11/2014 CHEM 14 7836682 ALK PHOS 107 U/L 04/11/2014 CHEM 14 6378704 SODIUM 139 MMOL/L 04/11/2014 CHEM 14 9877786 CREATININE 0.85 MG/DL 04/11/2014 CHEM 14 4531327 CALCIUM 9.2 MG/DL 04/11/2014 CHEM 14 8151848 POTASSIUM 3.7 MMOL/L 04/11/2014 CHEM 14 3854041 PROT TOT 7.1 GM/DL 04/11/2014 CHEM 14 8237015 GLUCOSE 85 MG/DL 04/11/2014 CHEM 14 2311477 BICARB 28 MMOL/L 04/11/2014 CHEM 14 8533640 ANION GAP 8 MEQ/L 04/11/2014 GFR CALC 9875038 GFR AA >60 ML/MIN 04/11/2014 GFR CALC 1982931 GFR NON-AA >60 ML/MIN 04/11/2014 URINALYSIS NONAUTO W/O SCOPE 25708 Specific [place] 1.020 DateTime(Free Text in Aprima) URINALYSIS NONAUTO W/O SCOPE 67250 PH 5.0 DateTime(Free Text in Aprima) URINALYSIS NONAUTO W/O SCOPE 80490 Protein neg DateTime( Free Text in Aprima) URINALYSIS NONAUTO W/O SCOPE 63197 Blood neg DateTime(Free Text in Apr) URINALYSIS NONAUTO W/O SCOPE 60614 Bilirubin neg DateTime(Free Text in Apr) URINALYSIS NONAUTO W/O SCOPE 46343 Ketones small DateTime(Free Text in Aprima) URINALYSIS NONAUTO W/O SCOPE 80663 Urobilinogen neg DateTime(Free Text in Aprima) URINALYSIS NONAUTO W/O SCOPE 83295 Nitrite neg DateTime( Free Text in Aprima) URINALYSIS NONAUTO W/O SCOPE 43730 Leukocytes neg DateTime(Free Text in Aprima) Review of Systems System Result Effective Dates Constitutional No recent illness 2016 Constitutional No [...] Result Effective Dates Notes Full Exam - General 1994 Constitutional general [...] flexion 06/06/2013 None Full Exam - General 1995 Musculoskeletal upper extremity Palpation - shoulder: pain with resisted internal rotation 06/06/2013 None Full Exam - General 1995 Musculoskeletal upper extremity ROM - shoulder: pain with abduction 06/06/2013 None Full Exam - General 1995 Musculoskeletal upper extremity ROM - shoulder: decreased internal rotation 06/06/2013 None Full Exam - General 1995 Musculoskeletal upper extremity ROM - shoulder: pain with internal rotation 06/06/2013 None Full Exam - General 1995 Musculoskeletal upper extremity ROM - shoulder: pain with shoulder extension 06/06/2013 None Full Exam - General 1994 Psychiatric mood and affect Mood: happy 06/06/2013 None Full Exam - General 1995 Psychiatric mood and affect Overall: normal mood [...] rate 02/21/2013 None Full Exam - General 1994 Cardiovascular extremities Overall: no clubbing 02/21/2013 None Full Exam - General 1994 Cardiovascular auscultation of heart Overall: regular rate 02/21/2013 None Full Exam - General 1994 Cardiovascular auscultation of heart Overall: normal heart sounds 02/21/2013 None Full Exam - General 1994 Cardiovascular auscultation of heart Overall: no murmurs 02/21/2013 None Full Exam - General 1994 [...] distress 02/21/2013 None Full Exam - General 1995 Constitutional general appearance Overall: well nourished 02/21/2013 None Full Exam - General 1995 Eyes conjunctiva /eyelids Overall: conjunctiva clear 02/21/2013 None Full Exam - General 1995 Respiratory auscultation Lower lung field: diminished 02/21/2013 None Full Exam - General 1995 Respiratory auscultation Upper lung field: diminished 02/21/2013 None Full Exam - General 1995 Respiratory auscultation Upper lung field: rhonchi 02/21/2013 None Full Exam - General 1995 Constitutional general appearance Overall: well developed 12/13/2012 None Full Exam - General 1995 Constitutional general appearance Overall: in no acute distress 12/13/2012 None Full Exam - General 1995 Constitutional general appearance Overall: well nourished 12/13/2012 None Full Exam - General 1995 Eyes conjunctiva /eyelids Overall: conjunctiva clear 12/13/2012 None Full Exam - General 1995 Eyes conjunctiva /eyelids Overall: cornea clear 12/13/2012 [...] atraumatic 12/13/2012 None Full Exam - General 1995 Constitutional general appearance Overall: well developed 09/23/2012 [...] 1994 Eyes conjunctiva /eyelids Overall: conjunctiva clear 06/14/2012 [...] masses 05/21/2012 None Full Exam - General 1994 [...] Date TRIAMCINOLONE ACET INJ NOS CPT-4: J3301 01/22/2016 TRIAMCINOLONE ACET INJ NOS CPT-4: J3301 11/23/2014 THER/PROPH/DIAG INJ SC/IM CPT-4: 22293 11/23/2014 THER/PROPH/DIAG INJ SC/IM CPT-4: 47313 11/22/2014 TRIAMCINOLONE ACET INJ NOS CPT-4: J3301 11/22/2014 URINALYSIS NONAUTO W/O SCOPE CPT-4: 63951 11/14/2014 ROUTINE VENIPUNCTURE CPT-4: 69078 04/11/2014 CHEM 14 (COMPREHEN METABOLIC PANEL) CPT-4: 23702 04/11/2014 IMMUNIZATION ADMIN CPT -4: 31222 01/05/2014 FLU VAC NO PRSV 4 SHAKILA 3 YRS+ Assigned to/Alyssa Thomas CPT-4: 06602Gpjekla 01/05/2014 FOOT EXAM PERFORMED SNOMED CT: 41461869 CPT-4: 2028F 06/20/2013 KETOROLAC TROMETHAMINE INJ CPT-4: J1885 06/06/2013 THER/PROPH/DIAG INJ SC/IM CPT-4: 06276 06/06/2013 Vital Signs Date Vital 11/12/2016 Blood Pressure 1: 140/80 Code : 8480-6 BMI: 29.7 Code : 11136-3 Heart Rate 1 : 82 bpm Height: 5'6" SpO2: 96% Weight: 181 lbs 08/11/2016 Blood Pressure 1: 152/88 Code : 8480-6 BMI: 30.3 Code : 70384-2 Heart Rate 1 : 73 bpm Height: 5'6" SpO2: 98% Weight: 185 lbs 03/31/2016 Blood Pressure 1: 124/86 Code : 8480-6 BMI: 30.2 Code : 29303-7 Heart Rate 1 : 86 bpm Height: 5'6" SpO2: 95% Weight: 184 lbs 02/01/2016 Blood Pressure 1: 112/60 Code : 8480-6 BMI: 29.5 Code : 49433-1 Heart Rate 1 : 68 bpm Height: 5'6" SpO2: 98% Weight: 180 lbs 01/22/2016 Blood Pressure 1: 132/80 Code : 8480-6 BMI: 29.8 Code : 57646-5 Heart Rate 1 : 76 bpm Height: 5'6" SpO2: 98% Temperature: 35.7 (C) / 96.2 (F) Weight: 182 lbs 01/07/2016 Blood Pressure 1: 134/86 Code : 8480-6 BMI: 30.0 Code : 56099-4 Heart Rate 1 : 78 bpm Height: 5'6" SpO2: 98% Weight: 183 lbs 12/03/2015 Blood Pressure 1: 146/86 Code : 8480-6 BMI: 30.2 Code : 21648-8 Heart Rate 1 : 93 bpm Height: 5'6" SpO2: 98% Weight: 184 lbs 8 09/17/2015 Blood Pressure 1: 140/88 Code : 8480-6 BMI: 29.5 Code : 92605-7 Heart Rate 1 : 77 bpm Height: 5'6" SpO2: 98% Weight: 180 lbs 05/29/2015 Blood Pressure 1: 140/80 Code : 8480-6 BMI: 28.2 Code : 03026-4 Heart Rate 1 : 83 bpm Height: 5'6" SpO2: 98% Weight: 172 lbs 12/12/2014 Blood Pressure 1: 150/92 Code : 8480-6 BMI: 28.2 Code : 52761-3 Heart Rate 1 : 91 bpm Height: 5'6" SpO2: 96% Weight: 172 lbs 11/23/2014 Blood Pressure 1: 138/92 Code : 8480-6 11/22/2014 Blood Pressure 1: 126/80 Code : 8480-6 BMI: 28.7 Code : 56742-8 Heart Rate 1 : 86 bpm Height: 5'6" SpO2: 97% Weight: 175 lbs 11/14/2014 Blood Pressure 1: 130/82 Code : 8480-6 BMI: 28.7 Code : 41159-2 Heart Rate 1 : 72 bpm Height: 5'6" Temperature: 36.3 (C) / 97.4 (F) Weight: 175 lbs 09/04/2014 Blood Pressure 1: 128/82 Code : 8480-6 BMI: 30.3 Code : 09720-3 Heart Rate 1 : 80 bpm Height: 5'6" Weight: 185 lbs 08/04/2014 Blood Pressure 1: 140/82 Code : 8480-6 BMI: 31.3 Code : 30018-4 Heart Rate 1 : 92 bpm Height: 5'6" SpO2: 99% Weight: 191 lbs 04/11/2014 Blood Pressure 1: 142/80 Code : 8480-6 BMI: 34.7 Code : 59047-1 Heart Rate 1 : 74 bpm Height: 5'6" Weight: 212 lbs 01/05/2014 Blood Pressure 1: 144/84 Code : 8480-6 BMI: 36.7 Code : 35779-2 Heart Rate 1 : 89 bpm Height: 5'6" SpO2: 97% Weight: 224 lbs 10/10/2013 Blood Pressure 1: 112/70 Code : 8480-6 BMI: 36.1 Code : 73154-4 Heart Rate 1 : 104 bpm Height: 5'6" Weight: 220 lbs 08/02/2013 Blood Pressure 1: 178/98 Code : 8480-6 BMI: 36.4 Code : 77683-2 Heart Rate 1 : 100 bpm Height: 5'6" Weight: 222 lbs 06/30/2013 Blood Pressure 1: 142/82 Code : 8480-6 BMI: 35.9 Code : 01815-5 Heart Rate 1 : 86 bpm Height: 5'6" SpO2: 98% Temperature: 36.3 (C) / 97.3 (F) Weight: 219 lbs 06/20/2013 Blood Pressure 1: 126/78 Code : 8480-6 BMI: 36.2 Code : 30414-3 Heart Rate 1 : 76 bpm Height: 5'6" Weight: 221 lbs 06/06/2013 Blood Pressure 1: 158/98 Code : 8480-6 BMI: 36.2 Code : 51168-8 Heart Rate 1 : 92 bpm Height: 5'6" Weight: 221 lbs 02/21/2013 Blood Pressure 1: 128/82 Code : 8480-6 BMI: 35.2 Code : 46216-4 Heart Rate 1 : 80 bpm Height: 5'6" Temperature: 35.7 (C) / 96.3 (F) Weight: 215 lbs 12/13/2012 Blood Pressure 1: 132/86 Code : 8480-6 BMI: 35.7 Code : 64479-1 Heart Rate 1 : 80 bpm Height: 5'6" Weight: 218 lbs 09/23/2012 Blood Pressure 1: 132/90 Code : 8480-6 BMI: 36.2 Code : 77934-5 Heart Rate 1 : 84 bpm Height: 5'6" Weight: 221 lbs 06/14/2012 Blood Pressure 1: 134/84 Code : 8480-6 Heart Rate 1: 84 bpm Respiratory Rate : 20 bpm Weight: 221 lbs 05/21/2012 Blood Pressure 1: 136/80 Code : 8480-6 BMI: 35.9 Code : 60778-1 Heart Rate 1 : 20 bpm Height: 5'6" Respiratory Rate: 16 bpm Temperature: 36.7 ( C) / 98.0 (F) Weight: 219 lbs Functional Status No Functional Status data History of Present Illness Symptom Name Status Result Effective Date Notes hypertension Quality chronic 11/12/2016 None hypertension Quality [...] surgery was canceled. She was referred to [facility]oma [facility] at acute renal failure Onset of Symptom [...] diabetes mellitus Exercise minimal exercise 01/05/2014 [facility] Pertinent Findings Denies dyspnea [...] in the larynx 02/21/2013 patient went to [facility] thursday. was given a zpack, prednisone, [...] data Encounters Encounter Performer Location Codes Date ([id number]) PREV VISIT EST AGE 40-64 Diagnosis: Encounter for general adult medical examination without abnormal findings[ICD10: Z00.00] Eleonora Curran MD, [facility] CPT-4: 33297 11/12/2016 ([id number]) 34857 EST. PATIENT, LEVEL III Diagnosis: Allergic rhinitis due to pollen[ICD10: J30.1] Diagnosis: Acute upper respiratory infection, unspecified[ICD10: J06.9] Talya Curran MD, [facility] CPT-4: 52601 09/16/2016 ([id number]) 44848 EST. PATIENT, LEVEL IV Diagnosis: Essential (primary) hypertension[ICD10: I10] Diagnosis: Type 2 diabetes mellitus without complications[ICD10: E11.9] Diagnosis: Functional diarrhea[ICD10: K59.1] Diagnosis: Mixed hyperlipidemia[ICD10: E78.2] Eleonora Curran MD, [facility] CPT-4: 91677 08/11/2016 ([id number]) 97414 EST. PATIENT, LEVEL III Diagnosis: Cramp and spasm[ICD10: R25.2] Diagnosis: Nausea[ICD10: R11.0] Talya Curran MD, [facility] CPT-4: 93129 03/31/2016 ([id number]) 20626 EST. PATIENT, LEVEL IV Diagnosis: Cough[ICD10: R05] Diagnosis: Essential (primary) hypertension[ICD10: I10] Diagnosis: Hypothyroidism, unspecified[ICD10: E03.9] Diagnosis: Gastro-esophageal reflux disease without esophagitis[ICD10: K21.9] Talya Curran MD, [facility] CPT-4: 14367 02/01/2016 ([id number]) 73042 EST. PATIENT, LEVEL III Diagnosis: Cough[ICD10: R05] Diagnosis: Acute bronchitis, unspecified[ICD10: J20.9] Talya Curran MD, [facility] CPT-4: 92296 01/22/2016 ([id number]) 10687 EST. PATIENT, LEVEL IV Diagnosis: Type 2 diabetes mellitus without complications[ICD10: E11.9] Diagnosis: Essential (primary) hypertension[ICD10: I10] Diagnosis: Dysphagia, pharyngeal phase[ICD10: R13.13] Eleonora Curran MD, [facility] CPT-4: 39726 01/07/2016 ([id number]) 22002 EST. PATIENT, LEVEL IV Diagnosis: Type 2 diabetes mellitus without complications[ICD10: E11.9] Diagnosis: Essential (primary) hypertension[ICD10: I10] Diagnosis: Pain in right knee[ICD10: M25.561] Eleonora Curran MD [facility] CPT-4: 28907 12/03/2015 ([id number]) 75473 EST. PATIENT, LEVEL IV Diagnosis: Type 2 diabetes mellitus with hyperglycemia[ICD10: E11.65] Diagnosis: Essential (primary) hypertension[ICD10: I10] Eleonora Curran MD, [facility] CPT-4: 02019 09/17/2015 ([id number]) 71978 EST. 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 PATIENT, LEVEL III Diagnosis: Diabetes mellitus, type II[ICD9: 250.00] Diagnosis: ESSENTIAL HYPERTENSION[ICD9: 401.9] Diagnosis: ESOPHAGEAL REFLUX[ICD9: 530.81] [facility] CPT- 4: 10260 12/12/2014 ([id number]) 14698 EST. PATIENT, LEVEL III Diagnosis: ALLERGIC URTICARIA[ICD9: 708.0] Kristan Curran MD, [facility] CPT-4 : 11793 11/22/2014 ([id number]) 37754 EST. PATIENT, LEVEL III Diagnosis: Abdominal pain[ICD9: 789.00] Diagnosis: Status post gastric surgery[ICD9: V45.89] Kristan Curran MD, [facility] CPT-4: 65518 11/14/2014 ([id number]) 52709 EST. PATIENT, LEVEL III Diagnosis: Diabetes mellitus, type II[ICD9: 250.00] Diagnosis: ESSENTIAL HYPERTENSION[ICD9: 401.9] Diagnosis: OBESITY[ICD9: 278.00] Diagnosis: ESOPHAGEAL REFLUX[ICD9: 530.81] Eleonora Curran MD, [facility] CPT- 4: 20245 09/04/2014 ([id number]) 05993 EST. PATIENT, LEVEL IV Diagnosis: Diabetes mellitus, type II[ICD9: 250.00] Diagnosis: ESSENTIAL HYPERTENSION[ICD9: 401.9] Diagnosis: OBESITY[ICD9: 278.00] Eleonora Curran MD, [facility] CPT-4: 56964 08/04/2014 ([id number]) 09930 EST. PATIENT, LEVEL IV Diagnosis: Thyroid nodule[ICD9: 241.0] Diagnosis: Decreased renal function[ICD9: 593.9] Diagnosis: Diabetes mellitus, type II[ICD9: 250.00] Talya Curran MD, [facility] CPT-4: 23987 04/11/2014 ([id number]) 02668 EST. PATIENT, LEVEL IV Diagnosis: Chronic diarrhea[ICD9: 787.91] Diagnosis: DM W/O COMPLICATION TYPE II, UNCONTROLLED[ICD9: 250.02] Diagnosis: ESSENTIAL HYPERTENSION[ICD9: 401.9] Talya Curran MD, [facility] CPT-4: 84499 01/05/2014 02778 EST. PATIENT, LEVEL IV Diagnosis: DM W/O COMPLICATION TYPE II, UNCONTROLLED[ICD9: 250.02] Diagnosis: OBESITY[ICD9: 278.00] Diagnosis: Generalized anxiety disorder[ICD9: 300.02] Diagnosis: ESSENTIAL HYPERTENSION[ICD9: 401.9] Eleonora Curran MD, [facility] CPT-4: 68084 10/10/2013 ([id number]) 86725 EST. PATIENT, LEVEL IV Diagnosis: DM W/O COMPLICATION TYPE II, UNCONTROLLED[ICD9: 250.02] Diagnosis: Shoulder pain, right[ICD9: 719.41] Diagnosis: INSOMNIA NOS[ICD9: 780.52] Eleonora Curran MD [facility] CPT- 4: 20618 08/02/2013 ([id number]) 36274 EST. PATIENT, LEVEL IV Diagnosis: DM W/O COMPLICATION TYPE II, UNCONTROLLED[SNOMED: 34475041] Diagnosis: COUGH[ICD9: 786.2] Diagnosis: MYALGIA AND MYOSITIS[ICD9: 729.1] Eleonora Curran MD [facility] CPT-4: 50885 06/30/2013 ([id number]) 85050 EST. PATIENT, LEVEL III Diagnosis: DM W/O COMPLICATION TYPE II, UNCONTROLLED[SNOMED: 56378852] Eleonora Curran MD [facility] CPT-4: 33321 06/20/2013 ([id number]) 54024 EST. PATIENT, LEVEL IV Diagnosis: DM W/O COMPLICATION TYPE II, UNCONTROLLED[SNOMED: 68720140] Eleonora Curran MD [facility] CPT-4: 44450 06/06/2013 ([id number]) 31895 EST. PATIENT, LEVEL IV Diagnosis: Acute bronchitis[ICD9: 466.0] Diagnosis: Cough[ICD9: 786.2] Diagnosis: Myalgia[ICD9: 729.1] Eleonora Curran MD [facility] CPT-4: 48028 02/21/2013 41451 EST. PATIENT, LEVEL IV Diagnosis: DM W/O COMPLICATION TYPE II, UNCONTROLLED[SNOMED: 63609026] Diagnosis: OBESITY[ICD9: 278.00] Diagnosis: Dietary counseling and surveillance[ICD9: V65.3] Eleonora Curran MD [facility] CPT-4: 59526 12/13/2012 ([id number]) 49037 EST. PATIENT, LEVEL IV Diagnosis: DM W/O COMPLICATION TYPE II, UNCONTROLLED[SNOMED: 79394694] Diagnosis: HYPERLIPIDEMIA[ICD9: 272.4] Eleonora Curran MD [facility] CPT- 4: 26113 09/23/2012 ([id number]) 53564 EST. PATIENT, LEVEL IV Diagnosis: Diabetes mellitus type 2, uncontrolled[SNOMED: 40894331] Diagnosis: Hyperlipidemia[ICD9: 272.4] Diagnosis: ESSENTIAL HYPERTENSION[SNOMED: 22708394] [facility] CPT-4: 02587 06/14/2012 OFFICE VISIT, NEW - LEVEL 3 Diagnosis: Influenza[ICD9: 487.1] Diagnosis: COUGH[ICD9: 786.2] Diagnosis: FEVER NOS[ICD9: 780.60] Diagnosis: Diarrhea[ICD9: 787.91] Diagnosis: Diabetes mellitus, type II[SNOMED: 127340235] [facility] CPT-4: 07754 05/21/2012 Plan of Care Planned Activity Notes Codes Status Date Visit Plan: Well Adult - pt was [...] functioning. 11/12/2016 Appointment: Eleonora Curran WPtel: [phone] [facility] (15 min) Moderate 11/12/2016 Patient Education: Patient Medication Summary Completed 11/12/2016 Patient Education: Patient Medication Summary Completed 11/12/2016 Appointment: Eleonora Curran WPtel: [phone] [facility] (15 min) Moderate 11/06/2016 Visit Plan: [...] pharmacy. 09/16/2016 Appointment: Talya Hernandez WPtel: [phone] [phone] [place] (10 min) Simple 09/16/2016 Patient Education: Patient Medication Summary Completed 09/16/2016 Care Plan: SCREENINGMAMMOGRAPHYDIGITAL LOINC : 30796-3 Pending 08/16/2016 Visit Plan: Diabetes Mellitus - [...] acute concerns. 08/11/2016 Appointment: [facility] Curran [facility] (15 min) Moderate 08/11/2016 Patient Education: Patient Medication Summary Completed 08/11/2016 Patient Education: Obesity Completed 08/11/2016 App[facility]ment: [phone] [facility] (15 min) Moderate 07/14/2016 Patient Education: Patient Medication Summary Completed 07/04/2016 Care Plan: Cbc With Differential Pending 07/04/2016 Care Plan: Comp Metabolic Pending 07/04/2016 Care Plan: Tsh Pending 07/04/2016 Care Plan: Lipid Pending 07/04/2016 Care Plan: %Hba1C LOINC : 13833-2 Pending 07/04/2016 Care Plan: Free T4 Pending 07/04/2016 Appointment: Eleonora Curran WPtel: [phone] [facility] (15 min) Moderate 06/16/2016 Appointment: Eleoonra Curran WPtel: [phone] [facility] (15 min) Moderate 05/06/2016 Visit Plan: Gastroenteritis - discussed need to stay away from milk products while acutely ill with diarrhea and nausea and emesis as it may worsen the symptoms. Liquids initially until the nausea improves, then recommend to advance to bland diet for 1 day, then advance as tolerated. Call if symptoms not improved. 03/31/2016 Appointment: Talya Hernandez WPtel: [phone] (10 min) Simple 03/31/2016 Patient Education: [...] not improving. 02/01/2016 Appointment: Talya Hernandez WPtel[phone] [place] (30 min) Complex 02/01/2016 Patient Education: Patient Medication Summary Completed 02/01/2016 Visit Plan: Bronchitis - acute case of bronchitis identified. Pt has been given antibiotics, breathing treatments as appropriate, and pt has been instructed to call if symptoms are not improved, or if symptoms acutely worsen. 01/22/2016 Appointment: Talya Hernandez WPtel: [phone] [place] (15 min) Moderate 01/22/2016 Patient Education: Patient [...] monitor 01/07/2016 Appointment: [facility] Curran [phone] [facility] [place] (15 min) Moderate 01/07/2016 Patient Education: Patient [...] victoza stopped 09/17/2015 Appointment: Eleonora Curran WPtel: [phone] [facility] (15 min) Moderate 09/17/2015 Patient Education: Patient [...] Hypertension Completed 05/29/2015 Appointment: Eleonora Curran WPtel: [phone] [facility] (15 min) Moderate 05/22/2015 Appointment: (15 min) [...] of control. 12/12/2014 Appointment: [phone] [facility] (15 min) Moderate 12/12/2014 Patient Education: Patient Medication Summary Completed 12/12/2014 Patient Education: Hypertension Completed 12/12/2014 Appointment: [facility]el[phone] Follow up 11/28/2014 Patient Education: Patient Medication [...] starting to become less controlled.michaela sample - [id number] exp 02/2016 novonordisk Hypertension - well controlled - continue with current medications, continue with no added salt diet. Pt has been encouraged to exercise daily. The pt has been advised to call the office if there are any acute concerns about change in blood pressure readings at home. 09/04/2014 Appointment: [facility] Curran [facility]el[phone] [facility] Follow up 09/04/2014 Patient Education: Patient Medication Summary Completed 09/04/2014 Patient Education: Hypertension Completed 09/04/2014 Care Plan: Referral Order SNOMED-CT : [id number] Ordered 09/04/2014 Visit Plan: Hypertension - well [...] stop metformin 08/04/2014 Appointment: Eleonora Curran WPtel: [facility] Follow up 08/04/2014 Patient Education: Patient Medication Summary Completed 08/04/2014 Patient Education: Hypertension Completed 08/04/2014 Visit Plan: Thyroid nodules-nodule on left lobe has increased in size-biopsy scheduled for Decrease renal function- secondary to dehydration-repeat labs-maintain adequate oral intake-follow up with diploma maker as scheduled DM-hgb a1c improved-continue with same [...] Summary Completed 01/05/2014 Appointment: Eleonora Curran WPtel: [facility] Follow up 01/03/2014 Visit Plan: Diabetes [...] to relax. 10/10/2013 Appointment: Eleonora Curran WPtel: [facility] Follow up 10/10/2013 Patient Education: Patient Medication Summary Completed 10/10/2013 Patient Education: Hypertension Completed 10/10/2013 Appointment: Eleonora Curran WPtel: [facility]6 [facility] Follow up 09/13/2013 Appointment: Eleonora Curran WPtel: [facility] Follow up 08/03/2013 Visit Plan: Diabetes Mellitus [...] treatment options. 08/02/2013 Appointment: [facility] Curran [facility]el[facility] [phone] [facility] Follow up 08/02/2013 Patient Education: Patient [...] urgent care. 06/30/2013 Appointment: Eleonora Curran WPtel: [address] [place] [address] 06/30/2013 Patient Education: Patient Medication Summary Completed [...] patient today. 06/20/2013 Appointment: Eleonora Curran WPtel: [address] [place], [place] [phone] Diabetic education 06/20/2013 Patient Education: Patient Medication Summary Completed 06/20/2013 Appointment: Eleonora Curran WPtel: [address] [place], [place] [phone] Follow up 06/13/2013 Visit Plan: Shoulder pain [...] acute bronchitis. 02/21/2013 Appointment: Eleonora Curran WPtel: [phone] [facility] [facility] 02/21/2013 Patient Education: Patient Medication Summary [...] months. 12/13/2012 Appointment: Eleonora Curran WPtel: [phone] [facility] Follow up 12/13/2012 Patient Education: Patient Medication [...] to medications. 09/23/2012 Appointment: Eleonora Curran WPtel: [facility] Follow up 09/23/2012 Patient Education: Patient [...] at home. 06/14/2012 Appointment: Talya Hernandez WPtel: [phone] Follow up 06/14/2012 Patient Education: Patient Medication Summary Completed 06/14/2012 Patient Education: Hypertension Completed 06/14/2012 Visit Plan: Qryub-qwuys-ovdc aches-suspect influenza- patient no indication for tamiflu [...] less controlled. 05/21/2012 Appointment: Talya Hernandez WPtel: [phone] [place] New Patient 05/21/2012 Patient Education: Patient Medication Summary Completed 05/21/2012 Referral: Hernandez Dennis WPtel: Referral Appointment Requested Instructions Comment CLEAR LIQUID DIET-ADVANCE TO BLAND TOLERATED PROBIOTIC [...] as tolerated. Call if symptoms not improved. CHECK CHEM PANEL METFORMIN TO 500MG DAILY INCREASE PO FLUIDS . Thyroid nodules-nodule on left lobe has increased in size-biopsy scheduled for Decrease renal function-secondary to dehydration-repeat labs-maintain adequate oral intake-follow up with diploma maker as scheduled DM-hgb a1c improved-continue with same medications pt to start on victoza 1.2 mg [...] to assure normal liver response to medications. . Diabetes Mellitus - Uncontrolled - per [...] glucose control. Trulicity started - victoza stopped pt to stop cardizem, stop diovan, stop [...] lantus to 10 units daily stop metformin I SENT ZITHROMAX TO [facility]-2 PILLS TODAY AND THEN 1 PILL DAILY UNTIL GONE. I ALSO SENT A PRESCRIPTION FOR DIFLUCAN FOR A YEAST INFECTION. Recommend PROBIOTIC twice daily-lactobacillus. START TODAY. [facility] Culturelle Align IF THE DIARRHEA PERSISTS OR WORSENS, START FLAGYL 500MG THREE TIMES DAILY-I SENT IT TO [facility]. I will call phenergan with codeine cough syrup to [facility]. Okay to take 5- 10ml every 6 hours as needed for cough. . Fxdon-wthtu-gneg aches-suspect influenza-patient no indication for tamiflu due [...] readings are starting to become less controlled. . Diabetes Mellitus - Uncontrolled - per [...] of 10# weight loss in 3 months. Add fish oil 1000mg po twice daily [...] change in blood pressure readings at home. decrease dose of celexa 40mg to 1/2 [...] starting to become less controlled.helenza sample - [id number] exp 02/2016 novonordisk Hypertension - well controlled [...] pt is to call for acute concerns. Steroid shot today in the office Stop [...] pt also given RX for prednisone taper. KENALOG INJECTION TODAY IN THE OFFICE START [...] not improved, or if symptoms acutely worsen. HOLD VIMOVO X 2 WEEKS DEXILANT 1 [...] office if the symptoms are not improving. NAPROXEN 500MG TWICE DAILY WITH FOOD FOR [...] WEEK THEN INCREASE TO 10 UNITS NIGHTLY . Well Adult - pt was counseled about diet, exercise, and encouraged to follow a heart healthy diet and increase activity level. The patient was instructed to RTC yearly for well adult exams and PRN for acute illnesses. The pt was also instructed to have yearly labs for check of cholesterol, thyroid, chem panel, CBC, and renal functioning. . Abdominal pain - UA negative. Check [...] until the results of the CT tomorrow. Pt has been advised to increase her [...] we will look into other treatment options. Start taking vitamin B12 liquid and folic [...] months based on previous levels of control. HOLD LIVALO AND FISH OIL X 1 [...] back worse than before her acute bronchitis. INCREASE LANTUS TO 15 UNITS AT BEDTIME [...] discussed in detail with patient today. decrease metformin to 1000mg one time daily [...] discomfort because she was able to relax. Plan: ([id number]) FLU VAC NO PRSV 4 SHAKILA 3 [...] in blood pressure readings at home. . Hypertension - well controlled - continue [...]
[2018-03-09 06:47] LABS: BASOPHILS # (AUTO) 0.1 10^3/uL (0.0-0.1); BASOPHILS % (AUTO) 1 % (0-10); EOSINOPHILS # (AUTO) 0.1 10^3/uL (0.0-0.3); EOSINOPHILS % (AUTO) 1 % (0-10); HEMATOCRIT 47 % (35-52); HEMOGLOBIN 15.5 G/DL (11.5-16.0); LYMPHOCYTES # (AUTO) 1.7 X 10^3 (1.0-4.0); LYMPHOCYTES % (AUTO) 16 % (12-44); MEAN CORPUSCULAR HEMOGLOBIN 28 PG (25-34); MEAN CORPUSCULAR HGB CONC 33 G/DL (32-36); MEAN CORPUSCULAR VOLUME 85 FL (80-99); MEAN PLATELET VOLUME 10.9 FL (7.4-10.4); MONOCYTES # (AUTO) 0.5 X 10^3 (0.0-1.0); MONOCYTES % (AUTO) 5 % (0-12); NEUTROPHILS # (AUTO) 8.3 X 10^3 (1.8-7.8); NEUTROPHILS % (AUTO) 78 % (42-75); PLATELET COUNT 327 10^3/uL (130-400); RED BLOOD COUNT 5.55 10^6/uL (4.35-5.85); WHITE BLOOD COUNT 10.6 10^3/uL (4.3-11.0)
--- OUTSIDE RECORDS SUMMARY | 2018-03-09 06:47 | XMS REPORT | CCD ---
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 Unknown Has never used illegal drugs 05/21/2012 Allergies, Adverse Reactions, Alerts Substance Reaction Codes Entered Date Inactivated Date Status ciprofloxacin hives RxNorm: 94524 11/22/2014 No Inactive Date Active PNEUMOCOCCAL VACCINE diarrhea Unknown 05/21/2012 No Inactive Date Active Past Medical History Illness Codes Condition Status Onset Date Resolved Date Generalized anxiety disorder ICD-9: 300.02 ICD-10: F41.1 Active 06/08/2017 Unknown Hypothyroidism, unspecified ICD-9: 244.9 ICD-10: E03.9 Active 01/31/2016 Unknown Major depressive disorder, single episode, moderate ICD-9: 296.22 ICD-10: F32.1 Active 06/08/2017 Unknown Type 2 diabetes mellitus with hyperglycemia ICD-9: 250.02 ICD-10: E11.65 Active 10/10/2013 Unknown Hypothryroidism Unknown Active 11/12/2016 Unknown Encounter for general adult medical examination without abnormal findings ICD-9: V70.0 ICD-10: Z00.00 Active 11/12/2016 Unknown Essential (primary) hypertension ICD-9: 401.1 ICD-10: I10 Active 01/06/2016 Unknown Mixed hyperlipidemia ICD-9: 272.2 ICD-10: E78.2 [...] Problems Condition Codes Effective Dates Condition Status Generalized anxiety disorder ICD-9: 300.02 ICD-10: F41.1 06/08/2017 Active Hypothyroidism, unspecified ICD-9: 244.9 ICD-10: E03.9 01/31/2016 Active Major depressive disorder, single episode, moderate ICD-9: 296.22 ICD-10: F32.1 06/08/2017 Active Type 2 diabetes mellitus with hyperglycemia ICD-9: 250.02 ICD-10: E11.65 10/10/2013 Active Hypothryroidism Unknown 11/12/2016 Active Encounter for general adult medical examination without abnormal findings ICD-9: V70.0 ICD-10: Z00.00 11/12/2016 Active Essential (primary) hypertension ICD-9: 401.1 ICD-10: I10 01/06/2016 Active Mixed hyperlipidemia ICD-9: 272.2 ICD-10: E78.2 [...] Start Date Stop Date Status Fill Instructions Wellbutrin XL 150 mg 24 hr tablet, extended release RxNorm: 706086 1 Tablet(s) PO daily 06/08/2017 09/05/2017 Active Victoza 3-To 0.6 mg/0.1 mL (18 mg/3 mL) subcutaneous pen injector RxNorm: 229504 Milligram(s) SQ 06/08/2017 09/05/2017 Active Initiate at 0.6 mg per day for one week then increase to 1.2 mg. Dispense qty sufficient hydrochlorothiazide 25 mg tablet RxNorm: 766441 TAKE ONE TABLET BY MOUTH ONCE DAILY 05/25/2017 No Stop Date Active citalopram 40 mg tablet RxNorm: 068027 TAKE ONE TABLET BY MOUTH ONCE DAILY 05/13/2017 No Stop Date Active potassium chloride ER 10 mEq tablet,extended release RxNorm: 012167 TAKE ONE TABLET BY MOUTH TWICE A WEEK 03/25/2017 No Stop Date Active hydrochlorothiazide 25 mg tablet RxNorm: 688779 TAKE ONE TABLET BY MOUTH ONCE DAILY 02/23/2017 05/24/2017 Inactive levothyroxine 88 mcg tablet RxNorm: 557027 TAKE ONE TABLET BY MOUTH ONCE DAILY 01/28/2017 07/26/2017 Active Trulicity 1.5 mg/0.5 mL subcutaneous pen injector RxNorm: 4488260 INJECT ONE SYRINGE SUBCUTANEOUSLY ONCE A WEEK 01/27/2017 07/13/2017 Active Diflucan 150 mg tablet RxNorm: 653357 1 Tablet(s) PO daily 12/31/2016 Inactive Invokana 100 mg tablet RxNorm: 3931650 1 Tablet(s) PO daily 11/201602/03/2017 Inactive Invokana 100 mg tablet RxNorm: 4864209 1 Tablet(s) PO daily 11/201612/01/2016 Inactive potassium chloride ER 10 mEq tablet,extended release RxNorm: 891798 1 Tablet(s) PO 2 times weekly 11/17/2016 03/16/2017 Inactive potassium chloride ER 10 mEq tablet,extended release RxNorm: 330416 1 Tablet(s) PO BIW 11/17/2016 11/16/2016 Inactive metformin 500 mg tablet RxNorm: 435628 1 Tablet(s) PO BID 11/1712/01/2016 Inactive potassium chloride ER 10 mEq tablet,extended release RxNorm: 826266 1 Tablet(s) PO BIW 11/17/2016 11/16/2016 Inactive Diflucan 150 mg tablet RxNorm: 105119 1 Tablet(s) PO daily 09/18/2016 Inactive Diflucan 150 mg tablet RxNorm: 215028 1 Tablet(s) PO daily 09/23/2016 Inactive amoxicillin 500 mg tablet RxNorm: 978979 1 Tablet(s) PO BID 09/25/2016 Inactive metoprolol succinate ER 50 mg tablet,extended release 24 hr RxNorm: 879272 Tablet (s) TAKE ONE TABLET BY MOUTH ONCE DAILY 08/11/2016 08/05/2017 Active Lipitor 20 mg tablet RxNorm: 043662 1 Tablet(s) PO QPM 201605/02/2018 Active Questran Light 4 gram oral powder RxNorm: 7187864 1 PO TID 05/25/2017 Inactive Trulicity 1.5 mg/0.5 mL subcutaneous pen injector RxNorm: 8114586 0.5 Milliliter(s ) SQ QW 08/11/2016 01/07/2017 Inactive levothyroxine 88 mcg tablet RxNorm: 631440 TAKE ONE TABLET BY MOUTH ONCE DAILY 07/28/2016 01/23/2017 Inactive Trulicity 0.75 mg/0.5 mL subcutaneous pen injector RxNorm: 1718317 INJECT THREE- FOURTHS MG(S) SUBCUTANEOUSLY ONCE A WEEK 07/01/2016 08/10/2016 Inactive metoprolol succinate ER 50 mg tablet,extended release 24 hr RxNorm: 269349 TAKE ONE TABLET BY MOUTH ONCE DAILY 06/11/2016 08/09/2016 Inactive citalopram 40 mg tablet RxNorm: 290843 TAKE ONE TABLET BY MOUTH ONCE DAILY 04/14/2016 05/12/2017 Inactive Diflucan 150 mg tablet RxNorm: 905587 1 Tablet(s) PO daily 01/24/2016 Inactive hydrochlorothiazide 25 mg tablet RxNorm: 890589 Tablet(s) 1 TABLET(S) PO DAILY 01/25/2016 01/18/2017 Inactive Diflucan 150 mg tablet RxNorm: 377411 1 Tablet(s) PO daily 01/31/2016 Inactive Zithromax Z-To 250 mg tablet RxNorm: 118558 1 Tablet(s) PO daily 01/24/2016 01/23/2016 Inactive zrick Zithromax Z-To 250 mg tablet RxNorm: 625458 1 Tablet(s) PO daily 01/24/2016 01/28/2016 Inactive lizypakhadijah prednisone 10 mg tablets in a dose pack RxNorm: 360040 1 Tablet(s) PO as directed 01/24/2016 01/31/2016 Inactive 6-5-4-3-2-1 Kenalog 40 mg/mL suspension for injection RxNorm: 0841836 Milliliter(s) Inj 01/22/2016 01/22/2016 Inactive prednisone 20 mg tablet RxNorm: 402648 2 Tablet(s) PO daily 01/24/2016 Inactive start tomorrow Trulicity 0.75 mg/0.5 mL subcutaneous pen injector RxNorm: 7485210 0.75 Milligram( s) SQ QW 01/18/2016 06/30/2016 Inactive levothyroxine 88 mcg tablet RxNorm: 133176 TAKE ONE TABLET BY MOUTH ONCE DAILY 01/17/2016 07/14/2016 Inactive Trulicity 0.75 mg/0.5 mL subcutaneous pen injector RxNorm: 3158299 0.75 Milligram( s) SQ QW 12/03/2015 01/01/2016 Inactive Vimovo 500 mg-20 mg tablet,immediate and delay release RxNorm: 531370 1 Tablet(s) PO BID 12/03/2015 03/30/2016 Inactive metoprolol succinate ER 50 mg tablet,extended release 24 hr RxNorm: 581423 1 Tablet(s) PO daily 10/23/2015 05/19/2016 Inactive Trulicity 0.75 mg/0.5 mL subcutaneous pen injector RxNorm: 0491535 0.75 Milligram( s) SQ QW 09/17/2015 10/16/2015 Inactive Victoza 3-To 0.6 mg/0.1 mL (18 mg/3 mL) subcutaneous pen injector RxNorm: 791563 1.8 MILLIGRAM(S) SQ DAILY 07/16/201509/15 Inactive this is just a correction of her current dosing - she does not need a refill levothyroxine 88 mcg tablet RxNorm: 889089 1 TABLET(S) PO DAILY 07/16/2015 01/11/2016 Inactive metoprolol succinate ER 50 mg tablet,extended release 24 hr RxNorm: 455959 1 Tablet(s) PO daily 05/29/2015 10/22/2015 Inactive levothyroxine 88 mcg tablet RxNorm: 333432 1 Tablet(s) PO daily 04/17/2015 07/15/2015 Inactive levothyroxine 88 mcg tablet RxNorm: 614459 1 Tablet(s) PO daily 04/17/2015 04/16/2015 Inactive citalopram 40 mg tablet RxNorm: 151247 1 Tablet(s) PO daily 04/13/2016 Inactive metoprolol tartrate 25 mg tablet RxNorm: 856470 1 Tablet(s) BID 01/17/2015 05/28/2015 Inactive hydrochlorothiazide 25 mg tablet RxNorm: 547919 1 TABLET(S) PO DAILY 01/01/2015 12/26/2015 Inactive Kenalog 40 mg/mL suspension for injection RxNorm: 0278834 Milliliter(s) Inj 11/23/2014 11/23/2014 Inactive Kenalog 40 mg/mL suspension for injection RxNorm: 8000759 60 Milliliter(s) Inj 11/22/2014 11/22/2014 Inactive Zyrtec 10 mg tablet RxNorm: 6172129 1 Tablet(s) PO daily 11/2212/21/2014 Inactive prednisone 10 mg tablets in a dose pack RxNorm: 407841 1 Tablet(s) PO as directed 11/22/2014 05/28/2015 Inactive 6-5-4-3-2-1 Flagyl 500 mg tablet RxNorm: 575576 1 Tablet(s) PO TID 201411/20/2014 Inactive metoprolol tartrate 25 mg tablet RxNorm: 041455 1 Tablet(s) PO BID 09/06/2014 08/10/2016 Inactive metoprolol tartrate 25 mg tablet RxNorm: 906599 1 TABLET(S) PO BID PT TO START WITH 1/2 PILL TWICE DAILY X 1 WEEK, THEN INCREASE TO 1 PILL BID THEREAFTER 09/06/2014 01/16/2015 Inactive citalopram 20 mg tablet RxNorm: 207548 1 Tablet(s) PO daily 02/201503/13/2015 Inactive Victoza 3-To 0.6 mg/0.1 mL (18 mg/3 mL) subcutaneous pen injector RxNorm: 399181 1.8 MILLIGRAM(S) SQ DAILY 09/04/201405/31 Inactive this is just a correction of her current dosing - she does not need a refill metoprolol tartrate 25 mg tablet RxNorm: 787578 1 Tablet(s) PO BID pt to start with 1/2 pill twice daily x 1 week, then increase to 1 pill bid thereafter 08/04/2014 09/02/2014 Inactive Lantus Solostar 100 unit/mL (3 mL) subcutaneous insulin pen RxNorm: 544846 Unit( s) INJECT 10 UNITS SUBCUTANEOUSLY DAILY. DOCTOR WILL ADJUST MEDICATION BASED ON BLOOD GLUCOSE LEVELS 08/04/20142014 Inactive hydrochlorothiazide 25 mg tablet RxNorm: 694391 1 TABLET(S) PO DAILY 07/12/2014 01/24/2016 Inactive hydrochlorothiazide 25 mg tablet RxNorm: 640426 1 Tablet(s) PO daily 07/12/2014 12/31/2014 Inactive acyclovir 400 mg tablet RxNorm: 865491 1 Tablet(s) PO QID 05/0905/08/2014 Inactive acyclovir 400 mg tablet RxNorm: 198595 1 Tablet(s) PO QID 05/0905/15/2014 Inactive alprazolam 0.25 mg tablet RxNorm: 756739 TAKE 1 TABLET BY MOUTH TWICE DAILY NEEDED FOR ANXIETY 04/24/2014 05/23/2014 Inactive (Response to an electronic controlled substance refill request - [facility] [id number]|[id number]|1|0|1) metoprolol succinate ER 100 mg tablet,extended release 24 hr RxNorm: 242995 1 TABLET(S) PO DAILY TAKE 1 TABLET BY MOUTH DAILY 04/24/2014 08/03/2014 Inactive Cardizem LA 360 mg tablet,extended release RxNorm: 503809 1 TABLET(S) PO DAILY TAKE 1 TABLET BY MOUTH DAILY 04/24/2014 Inactive metformin ER 500 mg 24 hr tablet,extended release RxNorm: 849600 1 Tablet(s) PO daily 04/11/2014 08/03/2014 Inactive Lantus Solostar 100 unit/mL (3 mL) subcutaneous insulin pen RxNorm: 522082 INJECT 40 UNITS SUBCUTANEOUSLY DAILY. DOCTOR WILL ADJUST MEDICATION BASED ON BLOOD GLUCOSE LEVELS 03/20/20142014 Inactive Bentyl 10 mg capsule RxNorm: 309187 1 Capsule(s) PO TID PRN 02/201405/28/2015 Inactive potassium chloride ER 10 mEq tablet,extended release RxNorm: 269307 1 Tablet(s) PO daily 01/05/2014 01/11/2014 Inactive Lantus Solostar 100 unit/mL (3 mL) subcutaneous insulin pen RxNorm: 541839 45 Unit(s) SQ daily doctor to adjust medications based on blood glucose results 01/05/2014 12/02/2015 Inactive Diovan 320 mg tablet RxNorm: 647036 1 Tablet(s) PO daily 201308/03/2014 Inactive metformin ER 1,000 mg tablet,extended release 24hr RxNorm: 505482 1 Tablet(s) PO daily 10/26/2013 04/10/2014 Inactive Lantus Solostar 100 unit/mL (3 mL) subcutaneous insulin pen RxNorm: 568350 40 Unit(s) SQ daily doctor to adjust medications based on blood glucose results 10/10/2013 01/04/2014 Inactive alprazolam 0.25 mg tablet RxNorm: 952926 1 Tablet(s) PO BID 04/24/2014 Inactive Percocet 5 mg-325 mg tablet RxNorm: 8713441 1-2 Tablet(s) PO Q6 PRN 10/03/2013 05/28/2015 Inactive Celexa 40 mg tablet RxNorm: 399538 Tablet(s) PO TAKE 1 TABLET BY MOUTH DAILY 09/28/2013 09/03/2014 Inactive hydrochlorothiazide 25 mg tablet RxNorm: 453905 1 Tablet(s) PO daily 09/22/2013 06/18/2014 Inactive Lantus Solostar 100 unit/mL (3 mL) subcutaneous insulin pen RxNorm: 926866 35 Unit(s) SQ daily doctor to adjust medications based on blood glucose results 08/02/2013 10/09/2013 Inactive Cardizem LA 360 mg tablet,extended release RxNorm: 162351 1 Tablet(s) PO daily TAKE 1 TABLET BY MOUTH DAILY 07/18/2013 Inactive Cardizem LA 360 mg tablet,extended release RxNorm: 132478 Tablet(s) PO TAKE 1 TABLET BY MOUTH DAILY 07/18/20132014 Inactive metoprolol succinate ER 100 mg tablet,extended release 24 hr RxNorm: 512366 1 Tablet(s) PO daily TAKE 1 TABLET BY MOUTH DAILY 07/18/2013 04/13/2014 Inactive metoprolol succinate ER 100 mg tablet,extended release 24 hr RxNorm: 636270 Tablet (s) PO TAKE 1 TABLET BY MOUTH DAILY 07/18/2013 08/03/2014 Inactive Lantus Solostar 100 unit/mL (3 mL) subcutaneous insulin pen RxNorm: 237883 30 Unit(s) SQ daily doctor to adjust medications based on blood glucose results 07/04/2013 08/01/2013 Inactive Victoza 3-To 0.6 mg/0.1 mL (18 mg/3 mL) subcutaneous pen injector RxNorm: 043064 1.8 Milligram(s) SQ daily 06/30/201303/26 Inactive this is just a correction of her current dosing - she does not need a refill metformin ER 1,000 mg tablet,extended release 24hr RxNorm: 687624 1 Tablet(s) PO daily 06/30/2013 10/25/2013 Inactive Lantus Solostar 100 unit/mL (3 mL) subcutaneous insulin pen RxNorm: 862560 20 Unit(s) SQ daily doctor to adjust medications based on blood glucose results 06/30/2013 07/03/2013 Inactive Lantus Solostar 100 unit/mL (3 mL) subcutaneous insulin pen RxNorm: 133132 15 Unit(s) SQ daily doctor to adjust medications based on blood glucose results 06/23/2013 06/29/2013 Inactive Victoza 3-To 0.6 mg/0.1 mL (18 mg/3 mL) subcutaneous pen injector RxNorm: 979316 3mg Milliliter(s) SQ daily 90 days worth 06/20/2013 06/29/2013 Inactive hydrochlorothiazide 25 mg tablet RxNorm: 601711 1 Tablet(s) PO daily 06/13/2013 09/21/2013 Inactive ketorolac 60 mg/2 mL intramuscular solution RxNorm: 845933 2 Milliliter(s) IM 06/06/2013 06/06/2013 Inactive Lantus Solostar 100 unit/mL (3 mL) subcutaneous insulin pen RxNorm: 479848 10 Unit(s) SQ daily doctor to adjust medications based on blood glucose results 06/06/2013 06/22/2013 Inactive naproxen 500 mg tablet RxNorm: 829128 1 Tablet(s) PO BID 201308/04/2013 Inactive hydrochlorothiazide 25 mg tablet RxNorm: 540998 1 Tablet(s) PO daily 06/06/2013 06/12/2013 Inactive Victoza 3-To 0.6 mg/0.1 mL (18 mg/3 mL) subcutaneous pen injector RxNorm: 876272 3mg Milliliter(s) SQ daily 90 days worth 05/19/2013 06/19/2013 Inactive Diflucan 150 mg tablet RxNorm: 055552 1 Tablet(s) PO daily 05/12/2013 Inactive Diflucan 150 mg tablet RxNorm: 114715 1 Tablet(s) PO daily 05/19/2013 Inactive Cardizem LA 360 mg tablet,extended release RxNorm: 299722 Tablet(s) PO TAKE 1 TABLET BY MOUTH DAILY 04/22/20132013 Inactive metoprolol succinate ER 100 mg tablet,extended release 24 hr RxNorm: 258513 Tablet (s) PO TAKE 1 TABLET BY MOUTH DAILY 04/14/2013 07/17/2013 Inactive Diflucan 150 mg tablet RxNorm: 107208 1 Tablet(s) PO daily 03/28/2013 Inactive Diflucan 150 mg tablet RxNorm: 857021 1 Tablet(s) PO daily 03/21/2013 Inactive Diovan 320 mg tablet RxNorm: 523477 1 Tablet(s) PO daily 201212/09/2013 Inactive cefdinir 300 mg capsule RxNorm: 601925 1 Capsule(s) PO BID 02/25/2013 Inactive Phenergan with Codeine Syrup RxNorm: 5-10 Milliliter(s) PO Q6 PRN USE PRN FOR COUGH 02/21/2013 03/20/2013 Inactive 8 OUNCES Victoza 3-To 0.6 mg/0.1 mL (18 mg/3 mL) subcutaneous pen injector RxNorm: 647037 3mg Milliliter(s) SQ daily 90 days worth 12/09/2012 03/08/2013 Inactive scopolamine 1.5 mg transdermal 72 hour patch RxNorm: 316552 1 Patch TD Q72H 10/26/2012 01/04/2014 Inactive scopolamine 1.5 mg 72 hr Transderm Patch RxNorm: 826535 1 Patch TD Q72H 10/26/2012 10/25/2012 Inactive metformin ER 1,000 mg tablet,extended release 24hr RxNorm: 011122 1 Tablet(s) PO BID 10/11/2012 06/29/2013 Inactive Victoza 3-To 0.6 mg/0.1 mL (18 mg/3 mL) Sub-Q Pen Injector RxNorm: 674240 1.8 Milliliter(s) SQ daily 1.8 mg dose daily 09/23/2012 12/08/2012 Inactive Victoza 3-To 0.6 mg/0.1 mL (18 mg/3 mL) Sub-Q Pen Injector RxNorm: 904374 3.0 Milliliter(s) SQ daily 1.2 + 1.8 mg dose daily 201209/22/2012 Inactive Celexa 40 mg tablet RxNorm: 949330 1 Tablet(s) PO daily TAKE ONE TABLET BY MOUTH DAILY 09/21/2012 05/18/2013 Inactive Cardizem LA 360 mg tablet,extended release RxNorm: 173882 1 Tablet(s) PO daily 07/20/2012 04/15/2013 Inactive metoprolol succinate ER 100 mg tablet,extended release 24 hr RxNorm: 792068 1 Tablet(s) PO daily 07/20/2012 04/13/2013 Inactive Byetta 10 mcg/0.04 mL per dose Sub-Q Pen Injector RxNorm: 579794 1 Milliliter(s) SQ BID 06/18/2012 09/22/2012 Inactive Diovan 320 mg tablet RxNorm: 644790 1 Tablet(s) PO daily 201203/14/2013 Inactive metformin ER 1,000 mg tablet,extended release 24hr RxNorm: 835614 1 Tablet(s) PO BID 06/14/2012 09/11/2012 Inactive metformin ER 1,000 mg tablet,extended release 24hr RxNorm: 314858 1 Tablet(s) PO 06/14/2012 06/13/2012 Inactive Livalo 4 mg tablet RxNorm: 273410 1 Tablet(s) PO daily 201201/04/2014 Inactive Celexa 40 mg tablet RxNorm: 035912 1 Tablet(s) PO daily 201209/21/2012 Inactive Accu-Chek Instant Glucose Test Strips RxNorm: 1 Miscellaneous daily accucheck ratna glucometer 05/21/2012 06/14/2013 Inactive Diflucan 150 mg tablet RxNorm: 367540 1 Tablet(s) PO daily 05/26/2012 Inactive Flagyl 500 mg tablet RxNorm: 612686 1 Tablet(s) PO TID 201205/27/2012 Inactive Minivelle 0.0375 mg/24 hr transdermal patch RxNorm: 1307232 1 Patch TD BIW No Start Date Active aspirin 81 mg tablet RxNorm: 448374 1 Tablet(s) PO daily No Start Date Active Cardizem LA 360 mg tablet,extended release RxNorm: 947925 1 Tablet(s) PO daily No Start Date 07/19/2012 Inactive metformin ER 750 mg tablet,extended release 24 hr RxNorm: 235352 1 Tablet(s) PO TID No Start Date 06/13/2012 Inactive Zithromax Z-To 250 mg tablet RxNorm: 889917 Tablet(s) PO No Start Date 06/13/2012 Inactive Diovan 320 mg tablet RxNorm: 418132 1 Tablet(s) PO daily No Start Date 06/17/2012 Inactive Byetta 10 mcg/0.04 mL per dose Sub-Q Pen Injector RxNorm: 753743 1 Milliliter(s) SQ BID No Start Date 06/17/2012 Inactive Vivelle 0.05 mg/24 hr Transderm Patch RxNorm: 258911 1 Patch TD [id number] No Start Date 12/03/2015 Inactive Fish Oil 1,000 mg capsule RxNorm: 1 Capsule(s) PO BID No Start Date 05/29/2015 Inactive Celexa 40 mg tablet RxNorm: 251943 1 Tablet(s) PO daily No Start Date 06/09/2012 Inactive levothyroxine 100 mcg tablet RxNorm: 859002 1 Tablet(s) PO daily No Start Date 04/16/2015 Inactive Fish Oil 1,000 mg capsule RxNorm: 1 Capsule(s) PO daily No Start Date 12/02/2015 Inactive Vitamin B-12 1,000 mcg/mL oral drops RxNorm: 4895425 1 Milliliter(s) PO daily No Start Date 12/02/2015 Inactive metoprolol succinate ER 100 mg tablet,extended release 24 hr RxNorm: 456289 1 Tablet(s) PO daily No Start Date 2012 Inactive promethazine-codeine 6.25 mg-10 mg/5 mL Syrup RxNorm: 540725 5-10 Milliliter(s) PO Q6 PRN No Start Date 12/12/2012 Inactive Percocet 5 mg-325 mg tablet RxNorm: 0908853 1-2 Tablet(s) PO Q6 PRN No Start Date 10/02/2013 Inactive hydrochlorothiazide 25 mg tablet RxNorm: 112699 1 Tablet(s) PO daily No Start Date 06/05/2013 Inactive Victoza 2-To 0.6 mg/0.1 mL (18 mg/3 mL) subcutaneous pen injector RxNorm: 586779 Milligram(s) SQ 1.8mg daily No Start Date 09/13/2013 Inactive Livalo 4 mg tablet RxNorm: 159168 1 Tablet(s) PO daily No Start Date 06/09/2012 Inactive Medication Administered Medication Codes Instructions Start Date Status Kenalog 40 mg/mL suspension for injection RxNorm: 6866279 Milliliter 01/22/2016 No longer Active Kenalog 40 mg/mL suspension for injection RxNorm: 3526572 Milliliter 11/23/2014 No longer Active Kenalog 40 mg/mL suspension for injection RxNorm: 4981244 Milliliter 11/22/2014 No longer Active ketorolac 60 mg/2 mL intramuscular solution RxNorm: 356794 2Milliliter 06/06/2013 No longer Active Immunizations Vaccine Codes Date Status Influenza CVX: 141 01/05/2014 completed Influenza CVX: 141 04/22/2013 completed Influenza CVX: 141 02/04/2012 completed Assessments Condition Codes Effective Dates Major depressive disorder, single episode, moderate ICD-10: F32.1 ICD-9: 296.22 06/08/2017 Type 2 diabetes mellitus with hyperglycemia ICD-10: E11.65 ICD-9: 250.02 06/08/2017 Generalized anxiety disorder ICD-10: F41.1 ICD-9: 300.02 06/08/2017 Hypothyroidism, unspecified ICD-10: E03.9 ICD-9: 244.9 06/08/2017 Encounter for general adult medical examination without abnormal findings ICD-10: Z00.00 ICD-9: V70.0 11/12/2016 Mixed hyperlipidemia ICD-10: E78.2 ICD-9: 272.2 11/12/2016 Essential (primary) hypertension ICD-10: I10 ICD-9: 401.1 11/12/2016 Type 2 diabetes mellitus without complications ICD-10: E11.9 ICD-9: 250.00 11/12/2016 Acute upper respiratory infection, unspecified ICD-10: [...] 241.0 04/11/2014 Decreased renal function ICD-9: 593.9 VACCIN FOR INFLUENZA ICD-10: Z23 ICD-9: V04.81 [...] Reason For Visit Effective Dates Notes hypertension 06/08/2017 hypertension 11/12/2016 hypertension 08/11/2016 vomiting [...] Observation Code Item Item Code Result Date Lipid Ord30 CHOL 182 mg/dL 06/02/2017 Lipid Ord30 HDL 57.0 mg/dl 06/02/2017 Lipid Ord30 TRIG 126 mg/dL 06/02/2017 Lipid Ord30 LDL 100 mg/dL 06/02/2017 Lipid Ord30 C/HDL 3.2 Ratio 06/02/2017 %Hba1C Tsv112 % HbA1c 50644-8 8.2 % 06/02/2017 %Hba1C Cew744 Gluc Ave 189 mg/dL 06/02/2017 Comp Metabolic Gik401 NA 143 mEq/L 11/12/2016 Comp Metabolic Rid178 K 3.3 mEq/L 11/12/2016 Comp Metabolic Khd182 CL 102 mEq/L 11/12/2016 Comp Metabolic Pgx600 CO2 30.0 mEq/L 11/12/2016 Comp Metabolic Rpg466 ANION GAP 14 11/12/2016 Comp Metabolic Tqp442 GLUCOSE 141 mg/dL 11/12/2016 Comp Metabolic Byd313 Creat 0.8 mg/dL 11/12/2016 Comp Metabolic Arh106 eGFR 76 ml/min/1.73m2 11/12/2016 Comp Metabolic Vqd759 BUN 11 mg/dL 11/12/2016 Comp Metabolic Met490 B/C Ratio 13.3 Ratio 11/12/2016 Comp Metabolic Alw661 CALCIUM 9.2 mg/dL 11/12/2016 Comp Metabolic Izu601 ALK PHOS 116 U/L 11/12/2016 Comp Metabolic Kqh111 AST(SGOT) 21 U/L 11/12/2016 Comp Metabolic Spd179 ALT(SGPT) 28 U/L 11/12/2016 Comp Metabolic Mvw198 BILI T 0.5 mg/dL 11/12/2016 Comp Metabolic Jtl272 ALBUMIN 3.8 g/dL 11/12/2016 Comp Metabolic Zid103 TPRO 6.4 g/dL 11/12/2016 Comp Metabolic Kyu236 GLOB 2.6 g/dL 11/12/2016 Comp Metabolic Uyc012 A/G Ratio 1.5 Ratio 11/12/2016 Comp Metabolic Uvd934 Osmo 287 mOsmo 11/12/2016 Lipid Ord30 CHOL [...] 44.5 % 11/12/2016 Cbc With Differential Ord2 Lymph% 16.9 % 11/12/2016 Cbc With Differential Ord2 MCV 91.0 fl 11/12/2016 Cbc With Differential Ord2 [place]% 5.8 % 11/12/2016 Cbc With Differential Ord2 MCH 30.3 pg 11/12/2016 Cbc With Differential Ord2 Eos% 1.7 % 11/12/2016 Cbc With Differential Ord2 MCHC 33.3 pg 11/12/2016 Cbc With Differential Ord2 PLT 301 K/ul 11/12/2016 Cbc With Differential Ord2 Baso% 0.5 % 11/12/2016 Cbc With Differential Ord2 Neut ABS# 6.53 K/ul 11/12/2016 Cbc With Differential Ord2 RDW 13.1 % 11/12/2016 Cbc With Differential Ord2 Lymph ABS# 1.47 K/ul 11/12/2016 Cbc With Differential Ord2 [place] ABS# 0.5 K/ul 11/12/2016 Cbc With Differential Ord2 Eos ABS# 0.2 K/ul 11/12/2016 Cbc With Differential Ord2 Baso ABS# 0.0 K/ul 11/12/2016 Tsh Ord6 hTSH II 1.59 uIU/mL 11/12/2016 %Hba1C Fna416 % HbA1c 10015-0 7.5 % 11/12/2016 %Hba1C Gnv674 Gluc Ave 169 mg/dL 11/12/2016 Free T4 Ukw227 FREE T4 0.91 ng/dL 11/12/2016 Cbc With [...] 29.7 pg 07/04/2016 Cbc With Differential Ord2 [place]% 7.1 % 07/04/2016 Cbc With Differential Ord2 MCHC 33.2 pg 07/04/2016 Cbc With Differential Ord2 Eos% 1.5 % 07/04/2016 Cbc With Differential Ord2 Baso% 0.8 % 07/04/2016 Cbc With Differential Ord2 PLT 268 K/ul 07/04/2016 Cbc With Differential Ord2 RDW 13.5 % 07/04/2016 Cbc With Differential Ord2 Neut ABS# 6.13 K/ul 07/04/2016 Cbc With Differential Ord2 Lymph ABS# 1.10 K/ul 07/04/2016 Cbc With Differential Ord2 [place] ABS# 0.6 K/ul 07/04/2016 Cbc With Differential Ord2 Eos ABS# 0.1 K/ul 07/04/2016 Cbc With Differential Ord2 Baso ABS# 0.1 K/ul 07/04/2016 Lipid Ord30 CHOL 282 mg/dL 07/04/2016 Lipid Ord30 HDL 53.0 mg/dl 07/04/2016 Lipid Ord30 TRIG 136 mg/dL 07/04/2016 Lipid Ord30 LDL 202 mg/dL 07/04/2016 Lipid Ord30 C/HDL 5.3 Ratio 07/04/2016 Tsh Ord6 hTSH II 1.21 uIU/mL 07/04/2016 %Hba1C Avg880 % HbA1c 87416-6 7.1 % 07/04/2016 %Hba1C Dbz246 Gluc Ave 157 mg/dL 07/04/2016 Comp Metabolic Ccx859 NA 141 mEq/L 07/04/2016 Comp Metabolic Giz002 K 3.5 mEq/L 07/04/2016 Comp Metabolic Elo058 CL 100 mEq/L 07/04/2016 Comp Metabolic Org491 CO2 34.0 mEq/L 07/04/2016 Comp Metabolic Ajp310 ANION GAP 11 07/04/2016 Comp Metabolic Jea928 GLUCOSE 144 mg/dL 07/04/2016 Comp Metabolic Zfh212 Creat 0.8 mg/dL 07/04/2016 Comp Metabolic Yom421 eGFR 75 ml/min/1.73m2 07/04/2016 Comp Metabolic Zxz358 BUN 10 mg/dL 07/04/2016 Comp Metabolic Cyk501 B/C Ratio 11.9 Ratio 07/04/2016 Comp Metabolic Ttc206 CALCIUM 9.4 mg/dL 07/04/2016 Comp Metabolic Mwi545 ALK PHOS 116 U/L 07/04/2016 Comp Metabolic Fny282 AST(SGOT) 16 U/L 07/04/2016 Comp Metabolic Pgc236 ALT(SGPT) 17 U/L 07/04/2016 Comp Metabolic Jmt703 BILI T 0.6 mg/dL 07/04/2016 Comp Metabolic Xuf402 ALBUMIN 4.3 g/dL 07/04/2016 Comp Metabolic Bda515 TPRO 7.0 g/dL 07/04/2016 Comp Metabolic Txy464 GLOB 2.7 g/dL 07/04/2016 Comp Metabolic Kml275 A/G Ratio 1.6 Ratio 07/04/2016 Comp Metabolic Ssf384 Osmo 283 mOsmo 07/04/2016 Free T4 Nrr781 FREE T4 0.87 ng/dL 07/04/2016 Cbc With [...] 29.9 pg 03/31/2016 Cbc With Differential Ord2 [place]% 6.5 % 03/31/2016 Cbc With Differential Ord2 [...] 1.22 K/ul 03/31/2016 Cbc With Differential Ord2 [place] ABS# 0.4 K/ul 03/31/2016 Cbc With Differential Ord2 Eos ABS# 0.1 K/ul 03/31/2016 Cbc With Differential Ord2 Baso ABS# 0.0 K/ul 03/31/2016 Comp Metabolic Dts355 NA 137 mEq/L 03/31/2016 Comp Metabolic Klh307 K 3.3 mEq/L 03/31/2016 Comp Metabolic Vld815 CL 101 mEq/L 03/31/2016 Comp Metabolic Fmm026 CO2 26.0 mEq/L 03/31/2016 Comp Metabolic Tfe977 ANION GAP 13 03/31/2016 Comp Metabolic Xcx469 GLUCOSE 150 mg/dL 03/31/2016 Comp Metabolic Kfo906 Creat 0.9 mg/dL 03/31/2016 Comp Metabolic Zpm553 eGFR 71 ml/min/1.73m2 03/31/2016 Comp Metabolic Glg029 BUN 13 mg/dL 03/31/2016 Comp Metabolic Bgx917 B/C Ratio 14.8 Ratio 03/31/2016 Comp Metabolic Qbu056 CALCIUM 8.8 mg/dL 03/31/2016 Comp Metabolic Rmw094 ALK PHOS 103 U/L 03/31/2016 Comp Metabolic Xxv750 AST(SGOT) 18 U/L 03/31/2016 Comp Metabolic Sru525 ALT(SGPT) 21 U/L 03/31/2016 Comp Metabolic Kvn304 BILI T 0.4 mg/dL 03/31/2016 Comp Metabolic Mdc612 ALBUMIN 3.9 g/dL 03/31/2016 Comp Metabolic Xld373 TPRO 6.5 g/dL 03/31/2016 Comp Metabolic Lcc804 GLOB 2.6 g/dL 03/31/2016 Comp Metabolic Rgq413 A/G Ratio 1.5 Ratio 03/31/2016 Comp Metabolic Nvg882 Osmo 277 mOsmo 03/31/2016 Cbc With Differential Ord2 WBC 10.13 K/ul 02/12/2016 Cbc With Differential Ord2 RBC 4.48 M/ul 02/12/2016 Cbc With Differential Ord2 HGB 13.6 g/dl 02/12/2016 Cbc With Differential Ord2 HCT 41.0 % 02/12/2016 Cbc With Differential Ord2 Neut% 66.3 % 02/12/2016 Cbc With Differential Ord2 Lymph% 23.9 % 02/12/2016 Cbc With Differential Ord2 MCV 91.5 fl 02/12/2016 Cbc With Differential Ord2 MCH 30.4 pg 02/12/2016 Cbc With Differential Ord2 [place]% 7.0 % 02/12/2016 Cbc With Differential Ord2 MCHC 33.2 pg 02/12/2016 Cbc With Differential Ord2 Eos% 1.9 % 02/12/2016 Cbc With Differential Ord2 Baso% 0.9 % 02/12/2016 Cbc With Differential Ord2 PLT 345 K/ul 02/12/2016 Cbc With Differential Ord2 Neut ABS# 6.72 K/ul 02/12/2016 Cbc With Differential Ord2 RDW 13.7 % 02/12/2016 Cbc With Differential Ord2 Lymph ABS# 2.42 K/ul 02/12/2016 Cbc With Differential Ord2 [place] ABS# 0.7 K/ul 02/12/2016 Cbc With Differential Ord2 Eos ABS# 0.2 K/ul 02/12/2016 Cbc With Differential Ord2 Baso ABS# 0.1 K/ul 02/12/2016 Comp Metabolic Mdz165 NA 138 mEq/L 02/01/2016 Comp Metabolic Smo396 K 4.3 mEq/L 02/01/2016 Comp Metabolic Ljz799 CL 101 mEq/L 02/01/2016 Comp Metabolic Pgy353 CO2 27.0 mEq/L 02/01/2016 Comp Metabolic Xau673 ANION GAP 14 02/01/2016 Comp Metabolic Urg727 GLUCOSE 127 mg/dL 02/01/2016 Comp Metabolic Lvu364 Creat 1.0 mg/dL 02/01/2016 Comp Metabolic Uhe776 eGFR 61 ml/min/1.73m2 02/01/2016 Comp Metabolic Mec956 BUN 21 mg/dL 02/01/2016 Comp Metabolic Xgd070 B/C Ratio 20.8 Ratio 02/01/2016 Comp Metabolic Odb239 CALCIUM 9.1 mg/dL 02/01/2016 Comp Metabolic Tzl462 ALK PHOS 105 U/L 02/01/2016 Comp Metabolic Kvt159 AST(SGOT) 14 U/L 02/01/2016 Comp Metabolic Txl807 ALT(SGPT) 26 U/L 02/01/2016 Comp Metabolic Wmq400 BILI T 0.4 mg/dL 02/01/2016 Comp Metabolic Ipr650 ALBUMIN 3.9 g/dL 02/01/2016 Comp Metabolic Rzs601 TPRO 6.7 g/dL 02/01/2016 Comp Metabolic Rda271 GLOB 2.8 g/dL 02/01/2016 Comp Metabolic Plt476 A/G Ratio 1.4 Ratio 02/01/2016 Comp Metabolic Nea852 Osmo 280 mOsmo 02/01/2016 Tsh Ord6 hTSH [...] 30.4 pg 02/01/2016 Cbc With Differential Ord2 [place]% 5.8 % 02/01/2016 Cbc With Differential Ord2 Eos% 1.6 % 02/01/2016 Cbc With Differential Ord2 MCHC 33.3 pg 02/01/2016 Cbc With Differential Ord2 PLT 392 K/ul 02/01/2016 Cbc With Differential Ord2 Baso% 0.3 % 02/01/2016 Cbc With Differential Ord2 RDW 13.6 % 02/01/2016 Cbc With Differential Ord2 Neut ABS# 8.63 K/ul 02/01/2016 Cbc With Differential Ord2 Lymph ABS# 3.74 K/ul 02/01/2016 Cbc With Differential Ord2 [place] ABS# 0.8 K/ul 02/01/2016 Cbc With Differential Ord2 Eos ABS# 0.2 K/ul 02/01/2016 Cbc With Differential Ord2 Baso ABS# 0.0 K/ul 02/01/2016 %Hba1C Lnx888 % HbA1c 21716-6 6.9 % 01/07/2016 %Hba1C Zty037 Gluc Ave 151 mg/dL 01/07/2016 Tsh Ord6 hTSH II 0.99 uIU/mL 11/08/2015 Free T4 Orm028 FREE T4 1.01 ng/dL 11/08/2015 %Hba1C Wty734 % HbA1c 10935-5 6.6 % 09/14/2015 %Hba1C Qrv247 Gluc Ave 143 mg/dL 09/14/2015 Lipid Ord30 [...] 89.4 fl 09/12/2015 Cbc With Differential Ord2 MCH 29.9 pg 09/12/2015 Cbc With Differential Ord2 [place]% 5.9 % 09/12/2015 Cbc With Differential Ord2 Eos% 1.7 % 09/12/2015 Cbc With Differential Ord2 MCHC 33.4 pg 09/12/2015 Cbc With Differential Ord2 Baso% 0.6 % 09/12/2015 Cbc With Differential Ord2 PLT 296 K/ul 09/12/2015 Cbc With Differential Ord2 RDW 13.3 % 09/12/2015 Cbc With Differential Ord2 Neut ABS# 4.87 K/ul 09/12/2015 Cbc With Differential Ord2 Lymph ABS# 1.48 K/ul 09/12/2015 Cbc With Differential Ord2 [place] ABS# 0.4 K/ul 09/12/2015 Cbc With Differential Ord2 Eos ABS# 0.1 K/ul 09/12/2015 Cbc With Differential Ord2 Baso ABS# 0.0 K/ul 09/12/2015 Cbc With Differential Ord2 New Analyzer Notice Please note new ref ranges starting 05-09-2015 due to implemntation of new five part differential hematolgy analyzer. 09/12/2015 Comp Metabolic Ibj539 NA 139 mEq/L 09/12/2015 Comp Metabolic Luz823 K 3.7 mEq/L 09/12/2015 Comp Metabolic Mnl973 CL 102 mEq/L 09/12/2015 Comp Metabolic Fml123 CO2 30.0 mEq/L 09/12/2015 Comp Metabolic Vtc500 ANION GAP 11 09/12/2015 Comp Metabolic Tnn712 GLUCOSE 135 mg/dL 09/12/2015 Comp Metabolic Frj301 Creat 0.8 mg/dL 09/12/2015 Comp Metabolic Yqb582 eGFR 86 ml/min/1.73m2 09/12/2015 Comp Metabolic Vkt469 BUN 10 mg/dL 09/12/2015 Comp Metabolic Lcg646 B/C Ratio 13.3 Ratio 09/12/2015 Comp Metabolic Zzi453 CALCIUM 8.8 mg/dL 09/12/2015 Comp Metabolic Ira814 ALK PHOS 95 U/L 09/12/2015 Comp Metabolic Dft330 AST(SGOT) 18 U/L 09/12/2015 Comp Metabolic Cwu389 ALT(SGPT) 20 U/L 09/12/2015 Comp Metabolic Aex735 BILI T 0.5 mg/dL 09/12/2015 Comp Metabolic Bzw687 ALBUMIN 3.9 g/dL 09/12/2015 Comp Metabolic Cvg567 TPRO 6.5 g/dL 09/12/2015 Comp Metabolic Hec459 GLOB 2.6 g/dL 09/12/2015 Comp Metabolic Nwg381 A/G Ratio 1.5 Ratio 09/12/2015 Comp Metabolic Skw775 Osmo 279 mOsmo 09/12/2015 Tsh Ord6 hTSH II 0.81 uIU/mL 08/01/2015 Free T4 Kfl198 FREE T4 0.82 ng/dL 08/01/2015 Vitamin B12 209264 VITAMIN B12 TEST NOT PERFORMED pg/mL 2015 Vitamin D 25 Oh Dmq6071 VITAMIN D, 25 HYDROXY 50.78 ng/mL Comp Metabolic Svn350 NA 142 mEq/L 04/12/2015 Comp Metabolic Nbw051 K 3.5 mEq/L 04/12/2015 Comp Metabolic Trs312 CL 102 mEq/L 04/12/2015 Comp Metabolic Zok377 CO2 32.0 mEq/L 04/12/2015 Comp Metabolic Aje700 ANION GAP 12 04/12/2015 Comp Metabolic Bgz829 GLUCOSE 130 mg/dL 04/12/2015 Comp Metabolic Caf997 Creat 0.8 mg/dL 04/12/2015 Comp Metabolic Fbr335 eGFR 78 ml/min/1.73m2 04/12/2015 Comp Metabolic Kmz748 BUN 12 mg/dL 04/12/2015 Comp Metabolic Kib999 B/C Ratio 14.6 Ratio 04/12/2015 Comp Metabolic Ird784 CALCIUM 8.9 mg/dL 04/12/2015 Comp Metabolic Csq928 ALK PHOS 95 U/L 04/12/2015 Comp Metabolic Oso131 AST(SGOT) 21 U/L 04/12/2015 Comp Metabolic Yae791 ALT(SGPT) 23 U/L 04/12/2015 Comp Metabolic Hii396 BILI T 0.4 mg/dL 04/12/2015 Comp Metabolic Fdu307 ALBUMIN 3.9 g/dL 04/12/2015 Comp Metabolic Nah412 TPRO 6.3 g/dL 04/12/2015 Comp Metabolic Oln592 GLOB 2.4 g/dL 04/12/2015 Comp Metabolic Bjb507 A/G Ratio 1.6 Ratio 04/12/2015 Comp Metabolic Ypf946 Osmo 285 mOsmo 04/12/2015 Tsh Ord6 hTSH II 0.18 uIU/mL 04/12/2015 %Hba1C Lpv580 % HbA1c 36793-1 6.4 % 04/12/2015 %Hba1C Gox980 Gluc Ave 137 mg/dL 04/12/2015 Free T4 Wyd969 FREE T4 1.13 ng/dL 04/12/2015 Cbc With [...] Ord2 RDW 14.6 % 11/14/2014 Comp Metabolic Eaq822 NA 137 mEq/L 11/14/2014 Comp Metabolic Urk850 K 3.6 mEq/L 11/14/2014 Comp Metabolic Ing449 CL 98 mEq/L 11/14/2014 Comp Metabolic Tcv290 CO2 31.0 mEq/L 11/14/2014 Comp Metabolic Czp916 ANION GAP 12 11/14/2014 Comp Metabolic Dtj647 GLUCOSE 110 mg/dL 11/14/2014 Comp Metabolic Pdf193 Creat 0.8 mg/dL 11/14/2014 Comp Metabolic Pxt698 eGFR 81 ml/min/1.73m2 11/14/2014 Comp Metabolic Pjy255 BUN 14 mg/dL 11/14/2014 Comp Metabolic Hjz344 B/C Ratio 17.7 Ratio 11/14/2014 Comp Metabolic Aye996 CALCIUM 9.2 mg/dL 11/14/2014 Comp Metabolic Bex659 ALK PHOS 135 U/L 11/14/2014 Comp Metabolic Xzd021 AST(SGOT) 17 U/L 11/14/2014 Comp Metabolic Vga003 ALT(SGPT) 20 U/L 11/14/2014 Comp Metabolic Ofw274 BILI T 0.3 mg/dL 11/14/2014 Comp Metabolic Fqi778 ALBUMIN 3.7 g/dL 11/14/2014 Comp Metabolic Gfk291 TPRO 6.5 g/dL 11/14/2014 Comp Metabolic Nep179 GLOB 2.8 g/dL 11/14/2014 Comp Metabolic Wiq248 A/G Ratio 1.3 Ratio 11/14/2014 Comp Metabolic Sdx927 Osmo 275 mOsmo 11/14/2014 CHEM 14 3710456 AST 18 U/L 04/11/2014 CHEM 14 2635604 ALT 25 IU/L 04/11/2014 CHEM 14 5506072 BUN 13 MG/DL 04/11/2014 CHEM 14 3773834 ALBUMIN 4.1 GM/DL 04/11/2014 CHEM 14 7731364 CHLORIDE 103 MMOL/L 04/11/2014 CHEM 14 2553380 BILI TOT 0.3 MG/DL 04/11/2014 CHEM 14 0474660 ALK PHOS 107 U/L 04/11/2014 CHEM 14 4245888 SODIUM 139 MMOL/L 04/11/2014 CHEM 14 9159926 CREATININE 0.85 MG/DL 04/11/2014 CHEM 14 9685608 CALCIUM 9.2 MG/DL 04/11/2014 CHEM 14 7700530 POTASSIUM 3.7 MMOL/L 04/11/2014 CHEM 14 8860497 PROT TOT 7.1 GM/DL 04/11/2014 CHEM 14 9611332 GLUCOSE 85 MG/DL 04/11/2014 CHEM 14 4662346 BICARB 28 MMOL/L 04/11/2014 CHEM 14 5840095 ANION GAP 8 MEQ/L 04/11/2014 GFR CALC 1176017 GFR AA >60 ML/MIN 04/11/2014 GFR CALC 7587737 GFR NON-AA >60 ML/MIN 04/11/2014 URINALYSIS NONAUTO W/O SCOPE 63876 Specific Archer 1.020 DateTime(Free Text in Aprima) URINALYSIS NONAUTO W/O SCOPE 68027 PH 5.0 DateTime(Free Text in Aprima) URINALYSIS NONAUTO W/O SCOPE 30333 Protein neg DateTime( Free Text in Apr[employer]) URINALYSIS NONAUTO W/O SCOPE 87372 Blood neg DateTime(Free Text in Aprima) URINALYSIS NONAUTO W/O SCOPE 85770 Bilirubin neg DateTime(Free Text in Aprima) URINALYSIS NONAUTO W/O SCOPE 71260 Ketones small DateTime(Free Text in Aprima) URINALYSIS NONAUTO W/O SCOPE 89019 Urobilinogen neg DateTime(Free Text in ) URINALYSIS NONAUTO W/O SCOPE 52936 Nitrite neg DateTime( Free Text in ) URINALYSIS NONAUTO W/O SCOPE 61343 Leukocytes neg DateTime(Free Text in ) Review of Systems System Result Effective Dates Constitutional No recent illness 2017 Constitutional No [...] atraumatic 02/21/2013 None Full Exam - General 1995 Musculoskeletal head and neck Overall: cervical spine benign 02/21/2013 None Full Exam - General 1995 Neurologic cranial nerves Overall: crainial nerves 2 - 12 grossly intact 02/21/2013 None Full Exam - General 1994 Psychiatric orientation/consciousness Overall: oriented to person, place and time 02/21/2013 None Full Exam - General 1994 Constitutional general appearance Overall: well developed 02/21/2013 None Full Exam - General 1995 [...] retractions 12/13/2012 None Full Exam - General 1995 Respiratory respiratory effort/rhythm Overall: normal rate 12/13/2012 [...] benign 05/21/2012 None Full Exam - General 1995 Lymphatic neck nodes Overall: posterior cervical chain benign 05/21/2012 None Full Exam - General 1994 Musculoskeletal digits and nails Overall: digits benign 05/21/2012 None Full Exam - General 1995 Musculoskeletal digits and nails Overall: no clubbing [...] CPT-4: J3301 11/23/2014 THER/PROPH/DIAG INJ SC/IM CPT-4: 05141 11/23/2014 THER/PROPH/DIAG INJ SC/IM CPT-4: 71317 11/22/2014 TRIAMCINOLONE ACET INJ NOS CPT-4: J3301 11/22/2014 URINALYSIS NONAUTO W/O SCOPE CPT-4: 65148 11/14/2014 ROUTINE VENIPUNCTURE CPT-4: 24025 04/11/2014 CHEM 14 (COMPREHEN METABOLIC PANEL) CPT-4: 22391 04/11/2014 IMMUNIZATION ADMIN CPT -4: 99840 01/05/2014 FLU VAC NO PRSV 4 SHAKILA 3 YRS+ Assigned to/lAyssa Thomas CPT-4: 91193Qnkpgpn 01/05/2014 FOOT EXAM PERFORMED SNOMED CT: 39596254 CPT-4: 2028F 06/20/2013 KETOROLAC TROMETHAMINE INJ CPT-4: J1885 06/06/2013 THER/PROPH/DIAG INJ SC/IM CPT-4: 24361 06/06/2013 Vital Signs Date Vital 06/08/2017 Blood Pressure 1: 148/92 Code : 8480-6 BMI: 31.5 Code : 69490-1 Heart Rate 1 : 88 bpm Height: 5'6" SpO2: 98% Weight: 192 lbs 11/12/2016 Blood Pressure 1: 140/80 Code : 8480-6 BMI: 29.7 Code : 55015-5 Heart Rate 1 : 82 bpm Height: 5'6" SpO2: 96% Weight: 181 lbs 08/11/2016 Blood Pressure 1: 152/88 Code : 8480-6 BMI: 30.3 Code : 02533-2 Heart Rate 1 : 73 bpm Height: 5'6" SpO2: 98% Weight: 185 lbs 03/31/2016 Blood Pressure 1: 124/86 Code : 8480-6 BMI: 30.2 Code : 55362-8 Heart Rate 1 : 86 bpm Height: 5'6" SpO2: 95% Weight: 184 lbs 02/01/2016 Blood Pressure 1: 112/60 Code : 8480-6 BMI: 29.5 Code : 19391-3 Heart Rate 1 : 68 bpm Height: 5'6" SpO2: 98% Weight: 180 lbs 01/22/2016 Blood Pressure 1: 132/80 Code : 8480-6 BMI: 29.8 Code : 29980-2 Heart Rate 1 : 76 bpm Height: 5'6" SpO2: 98% Temperature: 35.7 (C) / 96.2 (F) Weight: 182 lbs 01/07/2016 Blood Pressure 1: 134/86 Code : 8480-6 BMI: 30.0 Code : 68485-4 Heart Rate 1 : 78 bpm Height: 5'6" SpO2: 98% Weight: 183 lbs 12/03/2015 Blood Pressure 1: 146/86 Code : 8480-6 BMI: 30.2 Code : 53700-6 Heart Rate 1 : 93 bpm Height: 5'6" SpO2: 98% Weight: 184 lbs 8 oz 09/17/2015 Blood Pressure 1: 140/88 Code : 8480-6 BMI: 29.5 Code : 52860-2 Heart Rate 1 : 77 bpm Height: 5'6" SpO2: 98% Weight: 180 lbs 05/29/2015 Blood Pressure 1: 140/80 Code : 8480-6 BMI: 28.2 Code : 29970-7 Heart Rate 1 : 83 bpm Height: 5'6" SpO2: 98% Weight: 172 lbs 12/12/2014 Blood Pressure 1: 150/92 Code : 8480-6 BMI: 28.2 Code : 32756-2 Heart Rate 1 : 91 bpm Height: 5'6" SpO2: 96% Weight: 172 lbs 11/23/2014 Blood Pressure 1: 138/92 Code : 8480-6 11/22/2014 Blood Pressure 1: 126/80 Code : 8480-6 BMI: 28.7 Code : 54895-7 Heart Rate 1 : 86 bpm Height: 5'6" SpO2: 97% Weight: 175 lbs 11/14/2014 Blood Pressure 1: 130/82 Code : 8480-6 BMI: 28.7 Code : 64327-2 Heart Rate 1 : 72 bpm Height: 5'6" Temperature: 36.3 (C) / 97.4 (F) Weight: 175 lbs 09/04/2014 Blood Pressure 1: 128/82 Code : 8480-6 BMI: 30.3 Code : 60059-7 Heart Rate 1 : 80 bpm Height: 5'6" Weight: 185 lbs 08/04/2014 Blood Pressure 1: 140/82 Code : 8480-6 BMI: 31.3 Code : 59082-8 Heart Rate 1 : 92 bpm Height: 5'6" SpO2: 99% Weight: 191 lbs 04/11/2014 Blood Pressure 1: 142/80 Code : 8480-6 BMI: 34.7 Code : 04741-5 Heart Rate 1 : 74 bpm Height: 5'6" Weight: 212 lbs 01/05/2014 Blood Pressure 1: 144/84 Code : 8480-6 BMI: 36.7 Code : 22568-9 Heart Rate 1 : 89 bpm Height: 5'6" SpO2: 97% Weight: 224 lbs 10/10/2013 Blood Pressure 1: 112/70 Code : 8480-6 BMI: 36.1 Code : 64523-8 Heart Rate 1 : 104 bpm Height: 5'6" Weight: 220 lbs 08/02/2013 Blood Pressure 1: 178/98 Code : 8480-6 BMI: 36.4 Code : 49800-1 Heart Rate 1 : 100 bpm Height: 5'6" Weight: 222 lbs 06/30/2013 Blood Pressure 1: 142/82 Code : 8480-6 BMI: 35.9 Code : 02264-5 Heart Rate 1 : 86 bpm Height: 5'6" SpO2: 98% Temperature: 36.3 (C) / 97.3 (F) Weight: 219 lbs 06/20/2013 Blood Pressure 1: 126/78 Code : 8480-6 BMI: 36.2 Code : 95011-4 Heart Rate 1 : 76 bpm Height: 5'6" Weight: 221 lbs 06/06/2013 Blood Pressure 1: 158/98 Code : 8480-6 BMI: 36.2 Code : 19762-0 Heart Rate 1 : 92 bpm Height: 5'6" Weight: 221 lbs 02/21/2013 Blood Pressure 1: 128/82 Code : 8480-6 BMI: 35.2 Code : 07775-6 Heart Rate 1 : 80 bpm Height: 5'6" Temperature: 35.7 (C) / 96.3 (F) Weight: 215 lbs 12/13/2012 Blood Pressure 1: 132/86 Code : 8480-6 BMI: 35.7 Code : 27051-2 Heart Rate 1 : 80 bpm Height: 5'6" Weight: 218 lbs 09/23/2012 Blood Pressure 1: 132/90 Code : 8480-6 BMI: 36.2 Code : 49200-0 Heart Rate 1 : 84 bpm Height: 5'6" Weight: 221 lbs 06/14/2012 Blood Pressure 1: 134/84 Code : 8480-6 Heart Rate 1: 84 bpm Respiratory Rate : 20 bpm Weight: 221 lbs 05/21/2012 Blood Pressure 1: 136/80 Code : 8480-6 BMI: 35.9 Code : 89301-4 Heart Rate 1 : 20 bpm Height: 5'6" Respiratory Rate: 16 bpm Temperature: 36.7 ( C) / 98.0 (F) Weight: 219 lbs Functional Status No Functional Status data History of Present Illness Symptom Name Status Result Effective Date Notes hypertension Quality chronic 06/08/2017 None hypertension Quality [...] surgery was canceled. 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 was given a zpack, [...] data Encounters Encounter Performer Location Codes Date 45074 EST. PATIENT, LEVEL IV Diagnosis: Type 2 diabetes mellitus with hyperglycemia[ICD10: E11.65] Diagnosis: Hypothyroidism, unspecified[ICD10: E03.9] Diagnosis: Generalized anxiety disorder[ICD10: F41.1] Diagnosis: Major depressive disorder, single episode, moderate[ICD10: F32.1] Tiffanie Curran MD, [facility] CPT-4: 99984 06/08/2017 ([id number]) PREV VISIT EST AGE 40-64 Diagnosis: Encounter for general adult medical examination without abnormal findings[ICD10: Z00.00] Eleonora Curran MD, [facility] CPT-4: 55875 11/12/2016 ([id number]) 66658 EST. PATIENT, LEVEL III Diagnosis: Allergic rhinitis due to pollen[ICD10: J30.1] Diagnosis: Acute upper respiratory infection, unspecified[ICD10: J06.9] Talya Curran MD, [facility] CPT-4: 37389 09/16/2016 ([id number]) 74771 EST. PATIENT, LEVEL IV Diagnosis: Essential (primary) hypertension[ICD10: I10] Diagnosis: Type 2 diabetes mellitus without complications[ICD10: E11.9] Diagnosis: Functional diarrhea[ICD10: K59.1] Diagnosis: Mixed hyperlipidemia[ICD10: E78.2] Eleonora Curran MD, [facility] CPT-4: 95051 08/11/2016 ([id number]) 98834 EST. PATIENT, LEVEL III Diagnosis: Cramp and spasm[ICD10: R25.2] Diagnosis: Nausea[ICD10: R11.0] Talya Curran MD, [facility] CPT-4: 03933 03/31/2016 ([id number]) 03265 EST. PATIENT, LEVEL IV Diagnosis: Cough[ICD10: R05] Diagnosis: Essential (primary) hypertension[ICD10: I10] Diagnosis: Hypothyroidism, unspecified[ICD10: E03.9] Diagnosis: Gastro-esophageal reflux disease without esophagitis[ICD10: K21.9] Talya Curran MD, [facility] CPT-4: 71923 02/01/2016 ([id number]) 18008 EST. PATIENT, LEVEL III Diagnosis: Cough[ICD10: R05] Diagnosis: Acute bronchitis, unspecified[ICD10: J20.9] Talya Curran MD, [facility] CPT-4: 51827 01/22/2016 ([id number]) 50557 EST. PATIENT, LEVEL IV Diagnosis: Type 2 diabetes mellitus without complications[ICD10: E11.9] Diagnosis: Essential (primary) hypertension[ICD10: I10] Diagnosis: Dysphagia, pharyngeal phase[ICD10: R13.13] Eleonora Curran MD, [facility] CPT-4: 76918 01/07/2016 ([id number]) 41145 EST. PATIENT, LEVEL IV Diagnosis: Type 2 diabetes mellitus without complications[ICD10: E11.9] Diagnosis: Essential (primary) hypertension[ICD10: I10] Diagnosis: Pain in right knee[ICD10: M25.561] Eleonora Curran MD, [facility] CPT-4: 50634 12/03/2015 ([id number]) 19656 EST. PATIENT, LEVEL IV Diagnosis: Type 2 diabetes mellitus with hyperglycemia[ICD10: E11.65] Diagnosis: Essential (primary) hypertension[ICD10: I10] Eleonora Curran MD, [facility] CPT-4: 89096 09/17/2015 ([id number]) 44256 EST. 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 PATIENT, LEVEL III Diagnosis: Diabetes mellitus, type II[ICD9: 250.00] Diagnosis: ESSENTIAL HYPERTENSION[ICD9: 401.9] Diagnosis: ESOPHAGEAL REFLUX[ICD9: 530.81] Eleonora Curran MD [facility] CPT- 4: 75954 12/12/2014 ([id number]) 12842 EST. PATIENT, LEVEL III Diagnosis: ALLERGIC URTICARIA[ICD9: 708.0] Kristan Curran MD [facility] CPT-4 : 75872 11/22/2014 ([id number]) 85082 EST. PATIENT, LEVEL III Diagnosis: Abdominal pain[ICD9: 789.00] Diagnosis: Status post gastric surgery[ICD9: V45.89] Kristan Curran MD [facility] CPT-4: 23019 11/14/2014 ([id number]) 37837 EST. PATIENT, LEVEL III Diagnosis: Diabetes mellitus, type II[ICD9: 250.00] Diagnosis: ESSENTIAL HYPERTENSION[ICD9: 401.9] Diagnosis: OBESITY[ICD9: 278.00] Diagnosis: ESOPHAGEAL REFLUX[ICD9: 530.81] Eleonora Curran MD [facility] CPT- 4: 03067 09/04/2014 ([id number]) 79685 EST. PATIENT, LEVEL IV Diagnosis: Diabetes mellitus, type II[ICD9: 250.00] Diagnosis: ESSENTIAL HYPERTENSION[ICD9: 401.9] Diagnosis: OBESITY[ICD9: 278.00] Eleonora Curran MD, [facility] CPT-4: 28471 08/04/2014 ([id number]) 77111 EST. PATIENT, LEVEL IV Diagnosis: Thyroid nodule[ICD9: 241.0] Diagnosis: Decreased renal function[ICD9: 593.9] Diagnosis: Diabetes mellitus, type II[ICD9: 250.00] Talya Curran MD, [facility] CPT-4: 67059 04/11/2014 ([id number]) 09462 EST. PATIENT, LEVEL IV Diagnosis: Chronic diarrhea[ICD9: 787.91] Diagnosis: DM W/O COMPLICATION TYPE II, UNCONTROLLED[ICD9: 250.02] Diagnosis: ESSENTIAL HYPERTENSION[ICD9: 401.9] Talya Curran MD, [facility] CPT-4: 77113 01/05/2014 58413 EST. PATIENT, LEVEL IV Diagnosis: DM W/O COMPLICATION TYPE II, UNCONTROLLED[ICD9: 250.02] Diagnosis: OBESITY[ICD9: 278.00] Diagnosis: Generalized anxiety disorder[ICD9: 300.02] Diagnosis: ESSENTIAL HYPERTENSION[ICD9: 401.9] Eleonora Curran MD, [facility] CPT-4: 37527 10/10/2013 ([id number]) [id number] EST. PATIENT, LEVEL IV Diagnosis: DM W/O COMPLICATION TYPE II, UNCONTROLLED[ICD9: 250.02] Diagnosis: Shoulder pain, right[ICD9: 719.41] Diagnosis: INSOMNIA NOS[ICD9: 780.52] Eleonora Curran MD, [facility] CPT- 4: 77962 08/02/2013 ([id number]) [id number] EST. PATIENT, LEVEL IV Diagnosis: DM W/O COMPLICATION TYPE II, UNCONTROLLED[SNOMED: 69978706] Diagnosis: COUGH[ICD9: 786.2] Diagnosis: MYALGIA AND MYOSITIS[ICD9: 729.1] Eleonora Curran MD, [facility] CPT-4: 56446 06/30/2013 ([id number]) 40476 EST. PATIENT, LEVEL III Diagnosis: DM W/O COMPLICATION TYPE II, UNCONTROLLED[SNOMED: 99868076] Eleonora Curran MD , [facility] CPT-4: 71533 06/20/2013 ([id number]) 38512 EST. PATIENT, LEVEL IV Diagnosis: DM W/O COMPLICATION TYPE II, UNCONTROLLED[SNOMED: 10132306] Eleonora Curran MD , [facility] CPT-4: 60164 06/06/2013 ([id number]) 27220 EST. PATIENT, LEVEL IV Diagnosis: Acute bronchitis[ICD9: 466.0] Diagnosis: Cough[ICD9: 786.2] Diagnosis: Myalgia[ICD9: 729.1] Eleonora Curran MD, [facility] CPT-4: 99933 02/21/2013 [id number] EST. PATIENT, LEVEL IV Diagnosis: DM W/O COMPLICATION TYPE II, UNCONTROLLED[SNOMED: 43549759] Diagnosis: OBESITY[ICD9: 278.00] Diagnosis: Dietary counseling and surveillance[ICD9: V65.3] Eleonora Curran MD, [facility] CPT-4: 27579 12/13/2012 ([id number] EST. PATIENT, LEVEL IV Diagnosis: DM W/O COMPLICATION TYPE II, UNCONTROLLED[SNOMED: 54831659] Diagnosis: HYPERLIPIDEMIA[ICD9: 272.4] Eleonora Curran MD, [facility] CPT- 4: 81437 09/23/2012 ([id number] EST. PATIENT, LEVEL IV Diagnosis: Diabetes mellitus type 2, uncontrolled[SNOMED: 80912181] Diagnosis: Hyperlipidemia[ICD9: 272.4] Diagnosis: ESSENTIAL HYPERTENSION[SNOMED: 54912110] Talya Curran MD, [facility] CPT-4: 73861 06/14/2012 OFFICE VISIT, NEW - LEVEL 3 Diagnosis: Influenza[ICD9: 487.1] Diagnosis: COUGH[ICD9: 786.2] Diagnosis: FEVER NOS[ICD9: 780.60] Diagnosis: Diarrhea[ICD9: 787.91] Diagnosis: Diabetes mellitus, type II[SNOMED: 551657205] Talya Curran MD, [facility] CPT-4: 05271 05/21/2012 Plan of Care Planned Activity Notes Codes Status Date Visit Plan: Diabetes Mellitus - Uncontrolled - [...] patient. 06/08/2017 Appointment: Tiffanie Cr WPtel: [phone] [facility] (30 min) Complex 06/08/2017 Patient Education: Patient [...] functioning. 11/12/2016 Appointment: Eleonora Curran WPtel: [phone] [facility] (15 min) Moderate 11/12/2016 Patient Education: Patient Medication Summary Completed 11/12/2016 Patient Education: Patient Medication Summary Completed 11/12/2016 Appointment: Eleonora Curran WPtel: [phone] [facility] (15 min) Moderate 11/06/2016 Visit Plan: [...] pharmacy. 09/16/2016 Appointment: Talya Hernandez WPtel: [phone] [phone] [place] (10 min) Simple 09/16/2016 Patient Education: Patient Medication Summary Completed 09/16/2016 Care Plan: SCREENINGMAMMOGRAPHYDIGITAL LOINC : 84168-9 Pending 08/16/2016 Visit Plan: Diabetes Mellitus - [...] acute concerns. 08/11/2016 Appointment: Eleonora Curran WPtel[facility] ([facility] min) Moderate 08/11/2016 Patient Education: Patient Medication Summary Completed 08/11/2016 Patient Education: Obesity Completed 08/11/2016 Appointment: [phone] (15 min) Moderate 07/14/2016 Patient Education: Patient Medication Summary Completed 07/04/2016 Care Plan: Cbc With Differential Pending 07/04/2016 Care Plan: Comp Metabolic Pending 07/04/2016 Care Plan: Tsh Pending 07/04/2016 Care Plan: Lipid Pending 07/04/2016 Care Plan: %Hba1C LOINC : 98243-2 Pending 07/04/2016 Care Plan: Free T4 Pending 07/04/2016 Appointment: Eleonora Curran WPtel: [phone] [facility] (15 min) Moderate 06/16/2016 Appointment: MagdyEleonora WPtel: [phone] [facility] (15 min) Moderate 05/06/2016 Visit Plan: Gastroenteritis - discussed need to stay away from milk products while acutely ill with diarrhea and nausea and emesis as it may worsen the symptoms. Liquids initially until the nausea improves, then recommend to advance to bland diet for 1 day, then advance as tolerated. Call if symptoms not improved. 03/31/2016 Appointment: Talya Hernandez WPtel: [phone] [phone] (10 min) Simple 03/31/2016 Patient Education: Patient [...] not improving. 02/01/2016 Appointment: Talya Hernandez WPtel: [facility]1 [phone] (30 min) Complex 02/01/2016 Patient Education: Patient Medication Summary Completed 02/01/2016 Visit Plan: Bronchitis - acute case of bronchitis identified. Pt has been given antibiotics, breathing treatments as appropriate, and pt has been instructed to call if symptoms are not improved, or if symptoms acutely worsen. 01/22/2016 Appointment: Talya Hernandez WPtel: [facility]8 [phone] (15 min) Moderate 01/22/2016 Patient Education: Patient [...] to monitor 01/07/2016 Appointment: Eleonora Curran WPtel: [facility] (15 min) Moderate 01/07/2016 Patient Education: [...] to allow for greater blood glucose control. Trdannie started - victoza stopped 09/17/2015 Appointment: Eleonora Curran WPtel: [phone] [facility] (15 min) Moderate 09/17/2015 Patient Education: Patient [...] 05/29/2015 Patient Education: Hypertension Completed 05/29/2015 Appointment: Elenoora Curran [facility]Ptel[phone] (15 min) Moderate 05/22/2015 Appointment: (15 [...] of control. 12/12/2014 Appointment: [facility]ran [facility]Ptel[phone] (15 min) Moderate 12/12/2014 Patient Education: Patient Medication Summary Completed 12/12/2014 Patient Education: Hypertension Completed 12/12/2014 [facility]ment[phone] Follow up 11/28/2014 Patient Education: Patient Medication [...] starting to become less controlled.michaela sample - [id number] exp 02/2016 novonordisk Hypertension - well controlled - continue with current medications, continue with no added salt diet. Pt has been encouraged to exercise daily. The pt has been advised to call the office if there are any acute concerns about change in blood pressure readings at home. 09/04/2014 Appointment: Eleonora Curran WPtel: [facility] Follow up 09/04/2014 Patient Education: Patient Medication Summary Completed 09/04/2014 Patient Education: Hypertension Completed 09/04/2014 Care Plan: Referral Order SNOMED-CT : [id number] Ordered 09/04/2014 Visit Plan: Hypertension - well [...] stop metformin 08/04/2014 Appointment: Eleonora Curran WPtel: [facility] Follow up 08/04/2014 Patient Education: Patient Medication Summary Completed 08/04/2014 Patient Education: Hypertension Completed 08/04/2014 Visit Plan: Thyroid nodules-nodule on left lobe has increased in size-biopsy scheduled for Decrease renal function- secondary to dehydration-repeat labs-maintain adequate oral intake-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 10/10/2013 Appointment: Derek Currany [facility]Ptel: [phone] [facility] Follow up 10/10/2013 Patient Education: Patient Medication Summary Completed 10/10/2013 Patient Education: Hypertension Completed 10/10/2013 Appointment: HeflinEleonora jackson WPtel: [facility] Follow up 09/13/2013 Appointment: Magdy Eleonora WPtel: [facility] Follow up 08/03/2013 Visit Plan: Diabetes [...] treatment options. 08/02/2013 Appointment: Eleon[facility] Curran WPtel: [phone] [facility] Follow up 08/02/2013 Patient Education: Patient [...] care. 06/30/2013 Appointment: Eleonora Curran WPtel: [phone] [facility] [facility] 06/30/2013 Patient Education: Patient Medication Summary [...] in detail with patient today. 06/20/2013 Appointment: Eelonora Curran WPtel: [phone] [facility] Diabetic education 06/20/2013 Patient Education: Patient Medication Summary Completed 06/20/2013 Appointment: Eleonora Curran WPtel: [phone] [facility] Follow up 06/13/2013 Visit Plan: Shoulder [...] acute bronchitis. 02/21/2013 Appointment: Eleonora Curran WPtel: [phone] [facility] [facility] 02/21/2013 Patient Education: Patient Medication Summary [...] months. 12/13/2012 Appointment: Eleonora Curran WPtel: [phone] [facility] Follow up 12/13/2012 Patient Education: Patient [...] medications. 09/23/2012 Appointment: Eleon[facility] Curran [facility]Ptel: [phone] Follow up 09/23/2012 Patient Education: Patient [...] home. 06/14/2012 App[facility]ment[phone] Follow up 06/14/2012 Patient Education: Patient Medication Summary Completed 06/14/2012 Patient Education: Hypertension Completed 06/14/2012 Visit Plan: Aozlz-bdtcj-oylb aches-suspect influenza- patient no indication for tamiflu [...] to become less controlled. 05/21/2012 Appointment: Taly[facility] Hernadnez [facility]el[phone] New Patient 05/21/2012 Patient Education: Patient Medication [...] we will look into other treatment options. HOLD LIVALO AND FISH OIL X 1 [...] back worse than before her acute bronchitis. decrease citalopram to 1/2 tab daily x [...] has been appropriately prescribed for this patient. pt to start on victoza 1.2 mg [...] of 10# weight loss in 3 months. decrease dose of celexa 40mg to 1/2 [...] starting to become less controlled.victoza sample - [id number] exp 02/2016 novonordisk Hypertension - well controlled - continue with current medications, continue with no added salt diet. Pt has been encouraged to exercise daily. The pt has been advised to call the office if there are any acute concerns about change in blood pressure readings at home. Steroid shot today in the office Stop [...] until the results of the CT tomorrow. INCREASE LANTUS TO 15 UNITS AT BEDTIME [...] diet discussed in detail with patient today. 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 . Hypertension - well controlled - continue [...] - supportive care - continue to monitor Plan: ([id number]) FLU VAC NO PRSV 4 SHAKILA 3 [...] to 10 units daily stop metformin . Allergies - chronic - recommended pt [...] any worse. RX sent to patient's pharmacy. [facility] THEN 1 PILL DAILY UNTIL GONE. I ALSO SENT A PRESCRIPTION FOR DIFLUCAN FOR A YEAST INFECTION. Recommend PROBIOTIC twice daily-lactobacillus. START TODAY. Culturelle Align IF THE DIARRHEA PERSISTS OR WORSENS, START FLAGYL 500MG THREE TIMES DAILY-I SENT IT TO [facility]. I will call phenergan with codeine cough syrup to [facility]. Okay to take 5- 10ml every 6 hours as needed for cough. . Krpiv-ltahk-amsj aches-suspect influenza-patient no indication for tamiflu due [...] readings are starting to become less controlled. Plan: ([id number]) SCREENINGMAMMOGRAPHYDIGITAL . Hypertension - uncontrolled [...] have vitamin b12 and vitamin D level. Add fish oil 1000mg po twice daily [...] - pt to call if not improving. . Diabetes Mellitus - Uncontrolled - per [...]
--- OUTSIDE RECORDS SUMMARY | 2018-03-09 06:52 | XMS REPORT | CCD ---
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 Unknown Has never used illegal drugs 05/21/2012 Allergies, Adverse Reactions, Alerts Substance Reaction Codes Entered Date Inactivated Date Status ciprofloxacin hives RxNorm: 92589 11/22/2014 No Inactive Date Active PNEUMOCOCCAL VACCINE [...] Start Date Stop Date Status Fill Instructions hydrochlorothiazide 25 mg tablet RxNorm: 860463 TAKE ONE TABLET BY MOUTH ONCE DAILY 05/25/2017 No Stop Date Active citalopram 40 mg tablet RxNorm: 858567 TAKE ONE TABLET BY MOUTH ONCE DAILY 05/13/2017 No Stop Date Active potassium chloride ER 10 mEq tablet,extended release RxNorm: 629991 TAKE ONE TABLET BY MOUTH TWICE A WEEK 03/25/2017 No Stop Date Active hydrochlorothiazide 25 mg tablet RxNorm: 856937 TAKE ONE TABLET BY MOUTH ONCE DAILY 02/23/2017 05/24/2017 Inactive levothyroxine 88 mcg tablet RxNorm: 995394 TAKE ONE TABLET BY MOUTH ONCE DAILY 01/28/2017 07/26/2017 Active Trulicity 1.5 mg/0.5 mL subcutaneous pen injector RxNorm: 3999189 INJECT ONE SYRINGE SUBCUTANEOUSLY ONCE A WEEK 01/27/2017 07/13/2017 Active Diflucan 150 mg tablet RxNorm: 909341 1 Tablet(s) PO daily 12/31/2016 Inactive Invokana 100 mg tablet RxNorm: 1842725 1 Tablet(s) PO daily 11/201602/03/2017 Inactive Invokana 100 mg tablet RxNorm: 8793175 1 Tablet(s) PO daily 11/201612/01/2016 Inactive potassium chloride ER 10 mEq tablet,extended release RxNorm: 765404 1 Tablet(s) PO 2 times weekly 11/17/2016 03/16/2017 Inactive potassium chloride ER 10 mEq tablet,extended release RxNorm: 706275 1 Tablet(s) PO BIW 11/17/2016 11/16/2016 Inactive metformin 500 mg tablet RxNorm: 208629 1 Tablet(s) PO BID 11/1712/01/2016 Inactive potassium chloride ER 10 mEq tablet,extended release RxNorm: 619334 1 Tablet(s) PO BIW 11/17/2016 11/16/2016 Inactive Diflucan 150 mg tablet RxNorm: 136509 1 Tablet(s) PO daily 09/18/2016 Inactive Diflucan 150 mg tablet RxNorm: 250252 1 Tablet(s) PO daily 09/23/2016 Inactive amoxicillin 500 mg tablet RxNorm: 991799 1 Tablet(s) PO BID 09/25/2016 Inactive metoprolol succinate ER 50 mg tablet,extended release 24 hr RxNorm: 141323 Tablet (s) TAKE ONE TABLET BY MOUTH ONCE DAILY 08/11/2016 08/05/2017 Active Lipitor 20 mg tablet RxNorm: 393109 1 Tablet(s) PO QPM 201605/02/2018 Active Questran Light 4 gram oral powder RxNorm: 5751771 1 PO TID 10/09/2016 Inactive Trulicity 1.5 mg/0.5 mL subcutaneous pen injector RxNorm: 9315389 0.5 Milliliter(s ) SQ QW 08/11/2016 01/07/2017 Inactive levothyroxine 88 mcg tablet RxNorm: 808007 TAKE ONE TABLET BY MOUTH ONCE DAILY 07/28/2016 01/23/2017 Inactive Trulicity 0.75 mg/0.5 mL subcutaneous pen injector RxNorm: 1161479 INJECT THREE- FOURTHS MG(S) SUBCUTANEOUSLY ONCE A WEEK 07/01/2016 08/10/2016 Inactive metoprolol succinate ER 50 mg tablet,extended release 24 hr RxNorm: 892847 TAKE ONE TABLET BY MOUTH ONCE DAILY 06/11/2016 08/09/2016 Inactive citalopram 40 mg tablet RxNorm: 873369 TAKE ONE TABLET BY MOUTH ONCE DAILY 04/14/2016 05/12/2017 Inactive Diflucan 150 mg tablet RxNorm: 177316 1 Tablet(s) PO daily 01/24/2016 Inactive hydrochlorothiazide 25 mg tablet RxNorm: 903004 Tablet(s) 1 TABLET(S) PO DAILY 01/25/2016 01/18/2017 Inactive Diflucan 150 mg tablet RxNorm: 182620 1 Tablet(s) PO daily 01/31/2016 Inactive Zithromax Z-To 250 mg tablet RxNorm: 635019 1 Tablet(s) PO daily 01/24/2016 01/23/2016 Inactive zpack Zithromax Z-To 250 mg tablet RxNorm: 686843 1 Tablet(s) PO daily 01/24/2016 01/28/2016 Inactive zpack prednisone 10 mg tablets in a dose pack RxNorm: 011306 1 Tablet(s) PO as directed 01/24/2016 01/31/2016 Inactive 6-5-4-3-2-1 Kenalog 40 mg/mL suspension for injection RxNorm: 4173623 Milliliter(s) Inj 01/22/2016 01/22/2016 Inactive prednisone 20 mg tablet RxNorm: 373568 2 Tablet(s) PO daily 01/24/2016 Inactive start tomorrow Trulicity 0.75 mg/0.5 mL subcutaneous pen injector RxNorm: 5832654 0.75 Milligram( s) SQ QW 01/18/2016 06/30/2016 Inactive levothyroxine 88 mcg tablet RxNorm: 956082 TAKE ONE TABLET BY MOUTH ONCE DAILY 01/17/2016 07/14/2016 Inactive Trulicity 0.75 mg/0.5 mL subcutaneous pen injector RxNorm: 0031478 0.75 Milligram( s) SQ QW 12/03/2015 01/01/2016 Inactive Vimovo 500 mg-20 mg tablet,immediate and delay release RxNorm: 853592 1 Tablet(s) PO BID 12/03/2015 03/30/2016 Inactive metoprolol succinate ER 50 mg tablet,extended release 24 hr RxNorm: 519691 1 Tablet(s) PO daily 10/23/2015 05/19/2016 Inactive Trulicity 0.75 mg/0.5 mL subcutaneous pen injector RxNorm: 9892433 0.75 Milligram( s) SQ QW 09/17/2015 10/16/2015 Inactive Victoza 3-To 0.6 mg/0.1 mL (18 mg/3 mL) subcutaneous pen injector RxNorm: 132609 1.8 MILLIGRAM(S) SQ DAILY 07/16/201509/15 Inactive this is just a correction of her current dosing - she does not need a refill levothyroxine 88 mcg tablet RxNorm: 628616 1 TABLET(S) PO DAILY 07/16/2015 01/11/2016 Inactive metoprolol succinate ER 50 mg tablet,extended release 24 hr RxNorm: 863897 1 Tablet(s) PO daily 05/29/2015 10/22/2015 Inactive levothyroxine 88 mcg tablet RxNorm: 021316 1 Tablet(s) PO daily 04/17/2015 07/15/2015 Inactive levothyroxine 88 mcg tablet RxNorm: 386300 1 Tablet(s) PO daily 04/17/2015 04/16/2015 Inactive citalopram 40 mg tablet RxNorm: 826543 1 Tablet(s) PO daily 04/13/2016 Inactive metoprolol tartrate 25 mg tablet RxNorm: 866832 1 Tablet(s) BID 01/17/2015 05/28/2015 Inactive hydrochlorothiazide 25 mg tablet RxNorm: 382694 1 TABLET(S) PO DAILY 01/01/2015 12/26/2015 Inactive Kenalog 40 mg/mL suspension for injection RxNorm: 4798869 Milliliter(s) Inj 11/23/2014 11/23/2014 Inactive Kenalog 40 mg/mL suspension for injection RxNorm: 0354239 60 Milliliter(s) Inj 11/22/2014 11/22/2014 Inactive Zyrtec 10 mg tablet RxNorm: 9808600 1 Tablet(s) PO daily 11/2212/21/2014 Inactive prednisone 10 mg tablets in a dose pack RxNorm: 797777 1 Tablet(s) PO as directed 11/22/2014 05/28/2015 Inactive 6-5-4-3-2-1 Flagyl 500 mg tablet RxNorm: 400534 1 Tablet(s) PO TID 201411/20/2014 Inactive metoprolol tartrate 25 mg tablet RxNorm: 670570 1 Tablet(s) PO BID 09/06/2014 08/10/2016 Inactive metoprolol tartrate 25 mg tablet RxNorm: 128722 1 TABLET(S) PO BID PT TO START WITH 1/2 PILL TWICE DAILY X 1 WEEK, THEN INCREASE TO 1 PILL BID THEREAFTER 09/06/2014 01/16/2015 Inactive citalopram 20 mg tablet RxNorm: 924640 1 Tablet(s) PO daily 02/201503/13/2015 Inactive Victoza 3-To 0.6 mg/0.1 mL (18 mg/3 mL) subcutaneous pen injector RxNorm: 396429 1.8 MILLIGRAM(S) SQ DAILY 09/04/201405/31 Inactive this is just a correction of her current dosing - she does not need a refill metoprolol tartrate 25 mg tablet RxNorm: 830395 1 Tablet(s) PO BID pt to start with 1/2 pill twice daily x 1 week, then increase to 1 pill bid thereafter 08/04/2014 09/02/2014 Inactive Lantus Solostar 100 unit/mL (3 mL) subcutaneous insulin pen RxNorm: 613299 Unit( s) INJECT 10 UNITS SUBCUTANEOUSLY DAILY. DOCTOR WILL ADJUST MEDICATION BASED ON BLOOD GLUCOSE LEVELS 08/04/20142014 Inactive hydrochlorothiazide 25 mg tablet RxNorm: 814607 1 TABLET(S) PO DAILY 07/12/2014 01/24/2016 Inactive hydrochlorothiazide 25 mg tablet RxNorm: 764545 1 Tablet(s) PO daily 07/12/2014 12/31/2014 Inactive acyclovir 400 mg tablet RxNorm: 511676 1 Tablet(s) PO QID 05/0905/08/2014 Inactive acyclovir 400 mg tablet RxNorm: 307428 1 Tablet(s) PO QID 05/0905/15/2014 Inactive alprazolam 0.25 mg tablet RxNorm: 646227 TAKE 1 TABLET BY MOUTH TWICE DAILY NEEDED FOR ANXIETY 04/24/2014 05/23/2014 Inactive (Response to an electronic controlled substance refill request - [id number]|1|0|1) metoprolol succinate ER 100 mg tablet,extended release 24 hr RxNorm: 477424 1 TABLET(S) PO DAILY TAKE 1 TABLET BY MOUTH DAILY 04/24/2014 08/03/2014 Inactive Cardizem LA 360 mg tablet,extended release RxNorm: 369479 1 TABLET(S) PO DAILY TAKE 1 TABLET BY MOUTH DAILY 04/24/2014 Inactive metformin ER 500 mg 24 hr tablet,extended release RxNorm: 769215 1 Tablet(s) PO daily 04/11/2014 08/03/2014 Inactive Lantus Solostar 100 unit/mL (3 mL) subcutaneous insulin pen RxNorm: 633265 INJECT 40 UNITS SUBCUTANEOUSLY DAILY. DOCTOR WILL ADJUST MEDICATION BASED ON BLOOD GLUCOSE LEVELS 03/20/20142014 Inactive Bentyl 10 mg capsule RxNorm: 514490 1 Capsule(s) PO TID PRN 02/201405/28/2015 Inactive potassium chloride ER 10 mEq tablet,extended release RxNorm: 101397 1 Tablet(s) PO daily 01/05/2014 01/11/2014 Inactive Lantus Solostar 100 unit/mL (3 mL) subcutaneous insulin pen RxNorm: 645458 45 Unit(s) SQ daily doctor to adjust medications based on blood glucose results 01/05/2014 12/02/2015 Inactive Diovan 320 mg tablet RxNorm: 607410 1 Tablet(s) PO daily 201308/03/2014 Inactive metformin ER 1,000 mg tablet,extended release 24hr RxNorm: 626812 1 Tablet(s) PO daily 10/26/2013 04/10/2014 Inactive Lantus Solostar 100 unit/mL (3 mL) subcutaneous insulin pen RxNorm: 534503 40 Unit(s) SQ daily doctor to adjust medications based on blood glucose results 10/10/2013 01/04/2014 Inactive alprazolam 0.25 mg tablet RxNorm: 571039 1 Tablet(s) PO BID 04/24/2014 Inactive Percocet 5 mg-325 mg tablet RxNorm: 1851672 1-2 Tablet(s) PO Q6 PRN 10/03/2013 05/28/2015 Inactive Celexa 40 mg tablet RxNorm: 310029 Tablet(s) PO TAKE 1 TABLET BY MOUTH DAILY 09/28/2013 09/03/2014 Inactive hydrochlorothiazide 25 mg tablet RxNorm: 923679 1 Tablet(s) PO daily 09/22/2013 06/18/2014 Inactive Lantus Solostar 100 unit/mL (3 mL) subcutaneous insulin pen RxNorm: 993415 35 Unit(s) SQ daily doctor to adjust medications based on blood glucose results 08/02/2013 10/09/2013 Inactive Cardizem LA 360 mg tablet,extended release RxNorm: 178714 1 Tablet(s) PO daily TAKE 1 TABLET BY MOUTH DAILY 07/18/2013 Inactive Cardizem LA 360 mg tablet,extended release RxNorm: 983067 Tablet(s) PO TAKE 1 TABLET BY MOUTH DAILY 07/18/20132014 Inactive metoprolol succinate ER 100 mg tablet,extended release 24 hr RxNorm: 255893 1 Tablet(s) PO daily TAKE 1 TABLET BY MOUTH DAILY 07/18/2013 04/13/2014 Inactive metoprolol succinate ER 100 mg tablet,extended release 24 hr RxNorm: 278788 Tablet (s) PO TAKE 1 TABLET BY MOUTH DAILY 07/18/2013 08/03/2014 Inactive Lantus Solostar 100 unit/mL (3 mL) subcutaneous insulin pen RxNorm: 067800 30 Unit(s) SQ daily doctor to adjust medications based on blood glucose results 07/04/2013 08/01/2013 Inactive Victoza 3-To 0.6 mg/0.1 mL (18 mg/3 mL) subcutaneous pen injector RxNorm: 604022 1.8 Milligram(s) SQ daily 06/30/201303/26 Inactive this is just a correction of her current dosing - she does not need a refill metformin ER 1,000 mg tablet,extended release 24hr RxNorm: 163895 1 Tablet(s) PO daily 06/30/2013 10/25/2013 Inactive Lantus Solostar 100 unit/mL (3 mL) subcutaneous insulin pen RxNorm: 687747 20 Unit(s) SQ daily doctor to adjust medications based on blood glucose results 06/30/2013 07/03/2013 Inactive Lantus Solostar 100 unit/mL (3 mL) subcutaneous insulin pen RxNorm: 591272 15 Unit(s) SQ daily doctor to adjust medications based on blood glucose results 06/23/2013 06/29/2013 Inactive Victoza 3-To 0.6 mg/0.1 mL (18 mg/3 mL) subcutaneous pen injector RxNorm: 526689 3mg Milliliter(s) SQ daily 90 days worth 06/20/2013 06/29/2013 Inactive hydrochlorothiazide 25 mg tablet RxNorm: 771620 1 Tablet(s) PO daily 06/13/2013 09/21/2013 Inactive ketorolac 60 mg/2 mL intramuscular solution RxNorm: 170567 2 Milliliter(s) IM 06/06/2013 06/06/2013 Inactive Lantus Solostar 100 unit/mL (3 mL) subcutaneous insulin pen RxNorm: 289393 10 Unit(s) SQ daily doctor to adjust medications based on blood glucose results 06/06/2013 06/22/2013 Inactive naproxen 500 mg tablet RxNorm: 881460 1 Tablet(s) PO BID 201308/04/2013 Inactive hydrochlorothiazide 25 mg tablet RxNorm: 506590 1 Tablet(s) PO daily 06/06/2013 06/12/2013 Inactive Victoza 3-To 0.6 mg/0.1 mL (18 mg/3 mL) subcutaneous pen injector RxNorm: 212487 3mg Milliliter(s) SQ daily 90 days worth 05/19/2013 06/19/2013 Inactive Diflucan 150 mg tablet RxNorm: 971034 1 Tablet(s) PO daily 05/12/2013 Inactive Diflucan 150 mg tablet RxNorm: 977903 1 Tablet(s) PO daily 05/19/2013 Inactive Cardizem LA 360 mg tablet,extended release RxNorm: 224155 Tablet(s) PO TAKE 1 TABLET BY MOUTH DAILY 04/22/20132013 Inactive metoprolol succinate ER 100 mg tablet,extended release 24 hr RxNorm: 021838 Tablet (s) PO TAKE 1 TABLET BY MOUTH DAILY 04/14/2013 07/17/2013 Inactive Diflucan 150 mg tablet RxNorm: 588868 1 Tablet(s) PO daily 03/28/2013 Inactive Diflucan 150 mg tablet RxNorm: 114692 1 Tablet(s) PO daily 03/21/2013 Inactive Diovan 320 mg tablet RxNorm: 586027 1 Tablet(s) PO daily 201212/09/2013 Inactive cefdinir 300 mg capsule RxNorm: 158066 1 Capsule(s) PO BID 02/25/2013 Inactive Phenergan with Codeine Syrup RxNorm: 5-10 Milliliter(s) PO Q6 PRN USE PRN FOR COUGH 02/21/2013 03/20/2013 Inactive 8 OUNCES Victoza 3-To 0.6 mg/0.1 mL (18 mg/3 mL) subcutaneous pen injector RxNorm: 203238 3mg Milliliter(s) SQ daily 90 days worth 12/09/2012 03/08/2013 Inactive scopolamine 1.5 mg transdermal 72 hour patch RxNorm: 621226 1 Patch TD Q72H 10/26/2012 01/04/2014 Inactive scopolamine 1.5 mg 72 hr Transderm Patch RxNorm: 549082 1 Patch TD Q72H 10/26/2012 10/25/2012 Inactive metformin ER 1,000 mg tablet,extended release 24hr RxNorm: 438953 1 Tablet(s) PO BID 10/11/2012 06/29/2013 Inactive Victoza 3-To 0.6 mg/0.1 mL (18 mg/3 mL) Sub-Q Pen Injector RxNorm: 927631 1.8 Milliliter(s) SQ daily 1.8 mg dose daily 09/23/2012 12/08/2012 Inactive Victoza 3-To 0.6 mg/0.1 mL (18 mg/3 mL) Sub-Q Pen Injector RxNorm: 590138 3.0 Milliliter(s) SQ daily 1.2 + 1.8 mg dose daily 201209/22/2012 Inactive Celexa 40 mg tablet RxNorm: 578932 1 Tablet(s) PO daily TAKE ONE TABLET BY MOUTH DAILY 09/21/2012 05/18/2013 Inactive Cardizem LA 360 mg tablet,extended release RxNorm: 262925 1 Tablet(s) PO daily 07/20/2012 04/15/2013 Inactive metoprolol succinate ER 100 mg tablet,extended release 24 hr RxNorm: 267069 1 Tablet(s) PO daily 07/20/2012 04/13/2013 Inactive Byetta 10 mcg/0.04 mL per dose Sub-Q Pen Injector RxNorm: 945108 1 Milliliter(s) SQ BID 06/18/2012 09/22/2012 Inactive Diovan 320 mg tablet RxNorm: 948208 1 Tablet(s) PO daily 201203/14/2013 Inactive metformin ER 1,000 mg tablet,extended release 24hr RxNorm: 640590 1 Tablet(s) PO BID 06/14/2012 09/11/2012 Inactive metformin ER 1,000 mg tablet,extended release 24hr RxNorm: 762194 1 Tablet(s) PO 06/14/2012 06/13/2012 Inactive Livalo 4 mg tablet RxNorm: 139345 1 Tablet(s) PO daily 201201/04/2014 Inactive Celexa 40 mg tablet RxNorm: 498608 1 Tablet(s) PO daily 201209/21/2012 Inactive Accu-Chek Instant Glucose Test Strips RxNorm: 1 Miscellaneous daily accucheck ratna glucometer 05/21/2012 06/14/2013 Inactive Diflucan 150 mg tablet RxNorm: 075465 1 Tablet(s) PO daily 05/26/2012 Inactive Flagyl 500 mg tablet RxNorm: 504812 1 Tablet(s) PO TID 201205/27/2012 Inactive Minivelle 0.0375 mg/24 hr transdermal patch RxNorm: 3604117 1 Patch TD BIW No Start Date Active aspirin 81 mg tablet RxNorm: 175126 1 Tablet(s) PO daily No Start Date Active Cardizem LA 360 mg tablet,extended release RxNorm: 489831 1 Tablet(s) PO daily No Start Date 07/19/2012 Inactive metformin ER 750 mg tablet,extended release 24 hr RxNorm: 213949 1 Tablet(s) PO TID No Start Date 06/13/2012 Inactive Zithromax Z-To 250 mg tablet RxNorm: 263270 Tablet(s) PO No Start Date 06/13/2012 Inactive Diovan 320 mg tablet RxNorm: 296834 1 Tablet(s) PO daily No Start Date 06/17/2012 Inactive Byetta 10 mcg/0.04 mL per dose Sub-Q Pen Injector RxNorm: 859021 1 Milliliter(s) SQ BID No Start Date 06/17/2012 Inactive Vivelle 0.05 mg/24 hr Transderm Patch RxNorm: 268264 1 Patch TD [id number] No Start Date 12/03/2015 Inactive Fish Oil 1,000 mg capsule RxNorm: 1 Capsule(s) PO BID No Start Date 05/29/2015 Inactive Celexa 40 mg tablet RxNorm: 775005 1 Tablet(s) PO daily No Start Date 06/09/2012 Inactive levothyroxine 100 mcg tablet RxNorm: 888339 1 Tablet(s) PO daily No Start Date 04/16/2015 Inactive Fish Oil 1,000 mg capsule RxNorm: 1 Capsule(s) PO daily No Start Date 12/02/2015 Inactive Vitamin B-12 1,000 mcg/mL oral drops RxNorm: 0152378 1 Milliliter(s) PO daily No Start Date 12/02/2015 Inactive metoprolol succinate ER 100 mg tablet,extended release 24 hr RxNorm: 869101 1 Tablet(s) PO daily No Start Date 2012 Inactive promethazine-codeine 6.25 mg-10 mg/5 mL Syrup RxNorm: 540784 5-10 Milliliter(s) PO Q6 PRN No Start Date 12/12/2012 Inactive Percocet 5 mg-325 mg tablet RxNorm: 4646978 1-2 Tablet(s) PO Q6 PRN No Start Date 10/02/2013 Inactive hydrochlorothiazide 25 mg tablet RxNorm: 085699 1 Tablet(s) PO daily No Start Date 06/05/2013 Inactive Victoza 2-To 0.6 mg/0.1 mL (18 mg/3 mL) subcutaneous pen injector RxNorm: 096087 Milligram(s) SQ 1.8mg daily No Start Date 09/13/2013 Inactive Livalo 4 mg tablet RxNorm: 777079 1 Tablet(s) PO daily No Start Date 06/09/2012 Inactive Medication Administered Medication Codes Instructions Start Date Status Kenalog 40 mg/mL suspension for injection RxNorm: 6766811 Milliliter 01/22/2016 No longer Active Kenalog 40 mg/mL suspension for injection RxNorm: 9203212 Milliliter 11/23/2014 No longer Active Kenalog 40 mg/mL suspension for injection RxNorm: 9891327 Milliliter 11/22/2014 No longer Active ketorolac 60 mg/2 mL intramuscular solution RxNorm: 835591 2Milliliter 06/06/2013 No longer Active Immunizations Vaccine Codes Date Status Influenza CVX: 141 01/05/2014 completed Influenza CVX: 141 04/22/2013 completed Influenza CVX: 141 02/04/2012 completed Assessments Condition Codes Effective Dates Hypothyroidism, unspecified ICD-10: E03.9 ICD-9: 244.9 11/12/2016 Mixed hyperlipidemia ICD-10: E78.2 ICD-9: 272.2 11/12/2016 Essential (primary) hypertension ICD-10: I10 ICD-9: 401.1 11/12/2016 Type 2 diabetes mellitus without complications ICD-10: E11.9 ICD-9: 250.00 11/12/2016 Encounter for general adult medical examination [...] 06/02/2017 Lipid Ord30 C/HDL 3.2 Ratio 06/02/2017 Comp Metabolic Vvz564 NA 143 mEq/L 11/12/2016 Comp Metabolic Llj342 K 3.3 mEq/L 11/12/2016 Comp Metabolic Ixy193 CL 102 mEq/L 11/12/2016 Comp Metabolic Fby421 CO2 30.0 mEq/L 11/12/2016 Comp Metabolic Xwf117 ANION GAP 14 11/12/2016 Comp Metabolic Fve010 GLUCOSE 141 mg/dL 11/12/2016 Comp Metabolic Gmb195 Creat 0.8 mg/dL 11/12/2016 Comp Metabolic Evh783 eGFR 76 ml/min/1.73m2 11/12/2016 Comp Metabolic Rum597 BUN 11 mg/dL 11/12/2016 Comp Metabolic Aom868 B/C Ratio 13.3 Ratio 11/12/2016 Comp Metabolic Dqr720 CALCIUM 9.2 mg/dL 11/12/2016 Comp Metabolic Yum040 ALK PHOS 116 U/L 11/12/2016 Comp Metabolic Jvo859 AST(SGOT) 21 U/L 11/12/2016 Comp Metabolic Vny200 ALT(SGPT) 28 U/L 11/12/2016 Comp Metabolic Ntj979 BILI T 0.5 mg/dL 11/12/2016 Comp Metabolic Zsc962 ALBUMIN 3.8 g/dL 11/12/2016 Comp Metabolic Oqg879 TPRO 6.4 g/dL 11/12/2016 Comp Metabolic Muv083 GLOB 2.6 g/dL 11/12/2016 Comp Metabolic Ryd611 A/G Ratio 1.5 Ratio 11/12/2016 Comp Metabolic Tql504 Osmo 287 mOsmo 11/12/2016 Lipid Ord30 CHOL [...] 30.3 pg 11/12/2016 Cbc With Differential Ord2 [place]% 5.8 % 11/12/2016 Cbc With Differential Ord2 [...] 1.47 K/ul 11/12/2016 Cbc With Differential Ord2 [place] ABS# 0.5 K/ul 11/12/2016 Cbc With Differential Ord2 Eos ABS# 0.2 K/ul 11/12/2016 Cbc With Differential Ord2 Baso ABS# 0.0 K/ul 11/12/2016 Tsh Ord6 hTSH II 1.59 uIU/mL 11/12/2016 %Hba1C Jas141 % HbA1c 81423-4 7.5 % 11/12/2016 %Hba1C Efw844 Gluc Ave 169 mg/dL 11/12/2016 Free T4 Rhc017 FREE T4 0.91 ng/dL 11/12/2016 Cbc With [...] 29.7 pg 07/04/2016 Cbc With Differential Ord2 [place]% 7.1 % 07/04/2016 Cbc With Differential Ord2 [...] 1.10 K/ul 07/04/2016 Cbc With Differential Ord2 [place] ABS# 0.6 K/ul 07/04/2016 Cbc With Differential Ord2 Eos ABS# 0.1 K/ul 07/04/2016 Cbc With Differential Ord2 Baso ABS# 0.1 K/ul 07/04/2016 Lipid Ord30 CHOL 282 mg/dL 07/04/2016 Lipid Ord30 HDL 53.0 mg/dl 07/04/2016 Lipid Ord30 TRIG 136 mg/dL 07/04/2016 Lipid Ord30 LDL 202 mg/dL 07/04/2016 Lipid Ord30 C/HDL 5.3 Ratio 07/04/2016 Tsh Ord6 hTSH II 1.21 uIU/mL 07/04/2016 %Hba1C Ced758 % HbA1c 03230-3 7.1 % 07/04/2016 %Hba1C Fwa575 Gluc Ave 157 mg/dL 07/04/2016 Comp Metabolic Ioi051 NA 141 mEq/L 07/04/2016 Comp Metabolic Vch613 K 3.5 mEq/L 07/04/2016 Comp Metabolic Qsr581 CL 100 mEq/L 07/04/2016 Comp Metabolic Dlx976 CO2 34.0 mEq/L 07/04/2016 Comp Metabolic Ryq271 ANION GAP 11 07/04/2016 Comp Metabolic Ayx201 GLUCOSE 144 mg/dL 07/04/2016 Comp Metabolic Jcr274 Creat 0.8 mg/dL 07/04/2016 Comp Metabolic Agl067 eGFR 75 ml/min/1.73m2 07/04/2016 Comp Metabolic Bdt540 BUN 10 mg/dL 07/04/2016 Comp Metabolic Jet454 B/C Ratio 11.9 Ratio 07/04/2016 Comp Metabolic Dhd113 CALCIUM 9.4 mg/dL 07/04/2016 Comp Metabolic Wyp259 ALK PHOS 116 U/L 07/04/2016 Comp Metabolic Ikm861 AST(SGOT) 16 U/L 07/04/2016 Comp Metabolic Kxw421 ALT(SGPT) 17 U/L 07/04/2016 Comp Metabolic Cyk820 BILI T 0.6 mg/dL 07/04/2016 Comp Metabolic Nhd489 ALBUMIN 4.3 g/dL 07/04/2016 Comp Metabolic Qbc161 TPRO 7.0 g/dL 07/04/2016 Comp Metabolic Raw038 GLOB 2.7 g/dL 07/04/2016 Comp Metabolic Xdn041 A/G Ratio 1.6 Ratio 07/04/2016 Comp Metabolic Vfp212 Osmo 283 mOsmo 07/04/2016 Free T4 Zpn626 FREE T4 0.87 ng/dL 07/04/2016 Cbc With [...] 29.9 pg 03/31/2016 Cbc With Differential Ord2 [place]% 6.5 % 03/31/2016 Cbc With Differential Ord2 [...] 1.22 K/ul 03/31/2016 Cbc With Differential Ord2 [place] ABS# 0.4 K/ul 03/31/2016 Cbc With Differential Ord2 Eos ABS# 0.1 K/ul 03/31/2016 Cbc With Differential Ord2 Baso ABS# 0.0 K/ul 03/31/2016 Comp Metabolic Odp517 NA 137 mEq/L 03/31/2016 Comp Metabolic Apb962 K 3.3 mEq/L 03/31/2016 Comp Metabolic Amj973 CL 101 mEq/L 03/31/2016 Comp Metabolic Dym874 CO2 26.0 mEq/L 03/31/2016 Comp Metabolic Ivw542 ANION GAP 13 03/31/2016 Comp Metabolic Fjz145 GLUCOSE 150 mg/dL 03/31/2016 Comp Metabolic Xql957 Creat 0.9 mg/dL 03/31/2016 Comp Metabolic Onu052 eGFR 71 ml/min/1.73m2 03/31/2016 Comp Metabolic Ewx387 BUN 13 mg/dL 03/31/2016 Comp Metabolic Tet398 B/C Ratio 14.8 Ratio 03/31/2016 Comp Metabolic Gpt437 CALCIUM 8.8 mg/dL 03/31/2016 Comp Metabolic Voi840 ALK PHOS 103 U/L 03/31/2016 Comp Metabolic Tat150 AST(SGOT) 18 U/L 03/31/2016 Comp Metabolic Cxd292 ALT(SGPT) 21 U/L 03/31/2016 Comp Metabolic Fjh525 BILI T 0.4 mg/dL 03/31/2016 Comp Metabolic Zru566 ALBUMIN 3.9 g/dL 03/31/2016 Comp Metabolic Wht684 TPRO 6.5 g/dL 03/31/2016 Comp Metabolic Zyf211 GLOB 2.6 g/dL 03/31/2016 Comp Metabolic Ybs112 A/G Ratio 1.5 Ratio 03/31/2016 Comp Metabolic Nyk216 Osmo 277 mOsmo 03/31/2016 Cbc With Differential [...] 30.4 pg 02/12/2016 Cbc With Differential Ord2 [place]% 7.0 % 02/12/2016 Cbc With Differential Ord2 [...] 2.42 K/ul 02/12/2016 Cbc With Differential Ord2 [place] ABS# 0.7 K/ul 02/12/2016 Cbc With Differential Ord2 Eos ABS# 0.2 K/ul 02/12/2016 Cbc With Differential Ord2 Baso ABS# 0.1 K/ul 02/12/2016 Comp Metabolic Tno215 NA 138 mEq/L 02/01/2016 Comp Metabolic Yiz023 K 4.3 mEq/L 02/01/2016 Comp Metabolic Asv214 CL 101 mEq/L 02/01/2016 Comp Metabolic Uyn926 CO2 27.0 mEq/L 02/01/2016 Comp Metabolic Lwf785 ANION GAP 14 02/01/2016 Comp Metabolic Xtu694 GLUCOSE 127 mg/dL 02/01/2016 Comp Metabolic Cnq138 Creat 1.0 mg/dL 02/01/2016 Comp Metabolic Jck383 eGFR 61 ml/min/1.73m2 02/01/2016 Comp Metabolic Mvm927 BUN 21 mg/dL 02/01/2016 Comp Metabolic Qis241 B/C Ratio 20.8 Ratio 02/01/2016 Comp Metabolic Ubc394 CALCIUM 9.1 mg/dL 02/01/2016 Comp Metabolic Xcw216 ALK PHOS 105 U/L 02/01/2016 Comp Metabolic Pfc780 AST(SGOT) 14 U/L 02/01/2016 Comp Metabolic Orn949 ALT(SGPT) 26 U/L 02/01/2016 Comp Metabolic Hdl416 BILI T 0.4 mg/dL 02/01/2016 Comp Metabolic Ewn013 ALBUMIN 3.9 g/dL 02/01/2016 Comp Metabolic Ovr778 TPRO 6.7 g/dL 02/01/2016 Comp Metabolic Hhc956 GLOB 2.8 g/dL 02/01/2016 Comp Metabolic Fsp532 A/G Ratio 1.4 Ratio 02/01/2016 Comp Metabolic Bun693 Osmo 280 mOsmo 02/01/2016 Tsh Ord6 hTSH [...] 30.4 pg 02/01/2016 Cbc With Differential Ord2 [place]% 5.8 % 02/01/2016 Cbc With Differential Ord2 [...] 3.74 K/ul 02/01/2016 Cbc With Differential Ord2 [place] ABS# 0.8 K/ul 02/01/2016 Cbc With Differential Ord2 Eos ABS# 0.2 K/ul 02/01/2016 Cbc With Differential Ord2 Baso ABS# 0.0 K/ul 02/01/2016 %Hba1C Azh602 % HbA1c 77660-8 6.9 % 01/07/2016 %Hba1C Dpy877 Gluc Ave 151 mg/dL 01/07/2016 Tsh Ord6 hTSH II 0.99 uIU/mL 11/08/2015 Free T4 Gls227 FREE T4 1.01 ng/dL 11/08/2015 %Hba1C Suo296 % HbA1c 06939-1 6.6 % 09/14/2015 %Hba1C Tqm574 Gluc Ave 143 mg/dL 09/14/2015 Lipid Ord30 [...] 21.4 % 09/12/2015 Cbc With Differential Ord2 [place]% 5.9 % 09/12/2015 Cbc With Differential Ord2 [...] 1.48 K/ul 09/12/2015 Cbc With Differential Ord2 [place] ABS# 0.4 K/ul 09/12/2015 Cbc With Differential Ord2 Eos ABS# 0.1 K/ul 09/12/2015 Cbc With Differential Ord2 Baso ABS# 0.0 K/ul 09/12/2015 Cbc With Differential Ord2 New Analyzer Notice Please note new ref ranges starting 05-09-2015 due to implemntation of new five part differential hematolgy analyzer. 09/12/2015 Comp Metabolic Hwo189 NA 139 mEq/L 09/12/2015 Comp Metabolic Zwn676 K 3.7 mEq/L 09/12/2015 Comp Metabolic Mhf981 CL 102 mEq/L 09/12/2015 Comp Metabolic Iwq015 CO2 30.0 mEq/L 09/12/2015 Comp Metabolic Ybu833 ANION GAP 11 09/12/2015 Comp Metabolic Gsl002 GLUCOSE 135 mg/dL 09/12/2015 Comp Metabolic Sjs062 Creat 0.8 mg/dL 09/12/2015 Comp Metabolic Axi234 eGFR 86 ml/min/1.73m2 09/12/2015 Comp Metabolic Kvc356 BUN 10 mg/dL 09/12/2015 Comp Metabolic Lxx495 B/C Ratio 13.3 Ratio 09/12/2015 Comp Metabolic Dex014 CALCIUM 8.8 mg/dL 09/12/2015 Comp Metabolic Guk021 ALK PHOS 95 U/L 09/12/2015 Comp Metabolic Hhs652 AST(SGOT) 18 U/L 09/12/2015 Comp Metabolic Rwl611 ALT(SGPT) 20 U/L 09/12/2015 Comp Metabolic Kzk118 BILI T 0.5 mg/dL 09/12/2015 Comp Metabolic Qys384 ALBUMIN 3.9 g/dL 09/12/2015 Comp Metabolic Xmn464 TPRO 6.5 g/dL 09/12/2015 Comp Metabolic Evr276 GLOB 2.6 g/dL 09/12/2015 Comp Metabolic Kak590 A/G Ratio 1.5 Ratio 09/12/2015 Comp Metabolic Fpe451 Osmo 279 mOsmo 09/12/2015 Tsh Ord6 hTSH II 0.81 uIU/mL 08/01/2015 Free T4 Wuk695 FREE T4 0.82 ng/dL 08/01/2015 Vitamin B12 035494 VITAMIN B12 TEST NOT PERFORMED pg/mL 2015 Vitamin D 25 Oh Smt2347 VITAMIN D, 25 HYDROXY 50.78 ng/mL Comp Metabolic Ugt927 NA 142 mEq/L 04/12/2015 Comp Metabolic Ten696 K 3.5 mEq/L 04/12/2015 Comp Metabolic Vuo641 CL 102 mEq/L 04/12/2015 Comp Metabolic Hbg886 CO2 32.0 mEq/L 04/12/2015 Comp Metabolic Yam134 ANION GAP 12 04/12/2015 Comp Metabolic Qiy160 GLUCOSE 130 mg/dL 04/12/2015 Comp Metabolic Ncq294 Creat 0.8 mg/dL 04/12/2015 Comp Metabolic Sbp047 eGFR 78 ml/min/1.73m2 04/12/2015 Comp Metabolic Xis209 BUN 12 mg/dL 04/12/2015 Comp Metabolic Ajq369 B/C Ratio 14.6 Ratio 04/12/2015 Comp Metabolic Aqt755 CALCIUM 8.9 mg/dL 04/12/2015 Comp Metabolic Eqx231 ALK PHOS 95 U/L 04/12/2015 Comp Metabolic Osr398 AST(SGOT) 21 U/L 04/12/2015 Comp Metabolic Oph160 ALT(SGPT) 23 U/L 04/12/2015 Comp Metabolic Zbf445 BILI T 0.4 mg/dL 04/12/2015 Comp Metabolic Hzw790 ALBUMIN 3.9 g/dL 04/12/2015 Comp Metabolic Kme480 TPRO 6.3 g/dL 04/12/2015 Comp Metabolic Qkt277 GLOB 2.4 g/dL 04/12/2015 Comp Metabolic Yej366 A/G Ratio 1.6 Ratio 04/12/2015 Comp Metabolic Lmc840 Osmo 285 mOsmo 04/12/2015 Tsh Ord6 hTSH II 0.18 uIU/mL 04/12/2015 %Hba1C Mte955 % HbA1c 61356-9 6.4 % 04/12/2015 %Hba1C Uaz873 Gluc Ave 137 mg/dL 04/12/2015 Free T4 Lgx760 FREE T4 1.13 ng/dL 04/12/2015 Cbc With [...] Ord2 RDW 14.6 % 11/14/2014 Comp Metabolic Keh073 NA 137 mEq/L 11/14/2014 Comp Metabolic Ndk171 K 3.6 mEq/L 11/14/2014 Comp Metabolic Cld940 CL 98 mEq/L 11/14/2014 Comp Metabolic Asr126 CO2 31.0 mEq/L 11/14/2014 Comp Metabolic Btf600 ANION GAP 12 11/14/2014 Comp Metabolic Gke698 GLUCOSE 110 mg/dL 11/14/2014 Comp Metabolic Ony868 Creat 0.8 mg/dL 11/14/2014 Comp Metabolic Ilp612 eGFR 81 ml/min/1.73m2 11/14/2014 Comp Metabolic Fzg733 BUN 14 mg/dL 11/14/2014 Comp Metabolic Vmj210 B/C Ratio 17.7 Ratio 11/14/2014 Comp Metabolic Iae113 CALCIUM 9.2 mg/dL 11/14/2014 Comp Metabolic Pok268 ALK PHOS 135 U/L 11/14/2014 Comp Metabolic Uzf906 AST(SGOT) 17 U/L 11/14/2014 Comp Metabolic Uvc480 ALT(SGPT) 20 U/L 11/14/2014 Comp Metabolic Blh504 BILI T 0.3 mg/dL 11/14/2014 Comp Metabolic Syn747 ALBUMIN 3.7 g/dL 11/14/[address] TPRO 6.5 g/dL 11/14/2014 Comp Metabolic Gao321 GLOB 2.8 g/dL 11/14/2014 Comp Metabolic Odi007 A/G Ratio 1.3 Ratio 11/14/2014 Comp Metabolic Nsu960 Osmo 275 mOsmo 11/14/2014 CHEM 14 3501982 AST 18 U/L 04/11/2014 CHEM 14 6598661 ALT 25 IU/L 04/11/2014 CHEM 14 8538675 BUN 13 MG/DL 04/11/2014 CHEM 14 4728414 ALBUMIN 4.1 GM/DL 04/11/2014 CHEM 14 0427694 CHLORIDE 103 MMOL/L 04/11/2014 CHEM 14 9385607 BILI TOT 0.3 MG/DL 04/11/2014 CHEM 14 3300157 ALK PHOS 107 U/L 04/11/2014 CHEM 14 6153694 SODIUM 139 MMOL/L 04/11/2014 CHEM 14 2297811 CREATININE 0.85 MG/DL 04/11/2014 CHEM 14 5556467 CALCIUM 9.2 MG/DL 04/11/2014 CHEM 14 6167279 POTASSIUM 3.7 MMOL/L 04/11/2014 CHEM 14 7738496 PROT TOT 7.1 GM/DL 04/11/2014 CHEM 14 0026117 GLUCOSE 85 MG/DL 04/11/2014 CHEM 14 7384675 BICARB 28 MMOL/L 04/11/2014 CHEM 14 5483123 ANION GAP 8 MEQ/L 04/11/2014 GFR CALC 7795262 GFR AA >60 ML/MIN 04/11/2014 GFR CALC 0162541 GFR NON-AA >60 ML/MIN 04/11/2014 URINALYSIS NONAUTO W/O SCOPE 10328 Specific [place] 1.020 DateTime(Free Text in Aprima) URINALYSIS NONAUTO W/O SCOPE 80961 PH 5.0 DateTime(Free Text in Aprima) URINALYSIS NONAUTO W/O SCOPE 64429 Protein neg DateTime( Free Text in Aprima) URINALYSIS NONAUTO W/O SCOPE 82981 Blood neg DateTime(Free Text in Aprima) URINALYSIS NONAUTO W/O SCOPE 18035 Bilirubin neg DateTime(Free Text in Aprima) URINALYSIS NONAUTO W/O SCOPE 85382 Ketones small DateTime(Free Text in Apr) URINALYSIS NONAUTO W/O SCOPE 93628 Urobilinogen neg DateTime(Free Text in Aprima) URINALYSIS NONAUTO W/O SCOPE 83078 Nitrite neg DateTime( Free Text in Aprima) URINALYSIS NONAUTO W/O SCOPE 03898 Leukocytes neg DateTime(Free Text in ) Review [...] murmurs 10/10/2013 None Full Exam - General 1995 Musculoskeletal lower extremity Inspection - foot: a [...] exam 06/06/2013 None Full Exam - General 1995 [...] time 02/21/2013 None Full Exam - General 1995 Constitutional general appearance Overall: well developed 02/21/2013 [...] 1994 Ears/Nose/Throat oral cavity/pharynx/larynx Overall: no masses 09/23/2012 [...] tenderness 09/23/2012 None Full Exam - General 1995 Abdomen abdominal exam Overall: normal bowel sounds [...] normal 06/14/2012 None Full Exam - General 1995 Eyes conjunctiva /eyelids Overall: cornea clear 06/14/2012 None Full Exam - General 1994 Eyes pupils and irises Overall: pupils equal, round, reactive to light and accomodation 06/14/2012 None Full Exam - General 1994 Constitutional general appearance Overall: well nourished 06/14/2012 None Full Exam - General 1995 Constitutional general appearance Overall: well developed 06/14/2012 [...] CPT-4: J3301 11/23/2014 THER/PROPH/DIAG INJ SC/IM CPT-4: 91724 11/23/2014 THER/PROPH/DIAG INJ SC/IM CPT-4: 79840 11/22/2014 TRIAMCINOLONE ACET INJ NOS CPT-4: J3301 11/22/2014 URINALYSIS NONAUTO W/O SCOPE CPT-4: 10488 11/14/2014 ROUTINE VENIPUNCTURE CPT-4: 40859 04/11/2014 CHEM 14 (COMPREHEN METABOLIC PANEL) CPT-4: 44836 04/11/2014 IMMUNIZATION ADMIN CPT -4: 87519 01/05/2014 FLU VAC NO PRSV 4 SHAKILA 3 YRS+ Assigned to/Alyssa Thomas CPT-4: 16073Logyfem 01/05/2014 FOOT EXAM PERFORMED SNOMED CT: 41757419 CPT-4: 2028F 06/20/2013 KETOROLAC TROMETHAMINE INJ CPT-4: J1885 06/06/2013 THER/PROPH/DIAG INJ SC/IM CPT-4: 27998 06/06/2013 Vital Signs Date Vital 11/12/2016 Blood Pressure 1: 140/80 Code : 8480-6 BMI: 29.7 Code : 67531-2 Heart Rate 1 : 82 bpm Height: 5'6" SpO2: 96% Weight: 181 lbs 08/11/2016 Blood Pressure 1: 152/88 Code : 8480-6 BMI: 30.3 Code : 89582-2 Heart Rate 1 : 73 bpm Height: 5'6" SpO2: 98% Weight: 185 lbs 03/31/2016 Blood Pressure 1: 124/86 Code : 8480-6 BMI: 30.2 Code : 24357-5 Heart Rate 1 : 86 bpm Height: 5'6" SpO2: 95% Weight: 184 lbs 02/01/2016 Blood Pressure 1: 112/60 Code : 8480-6 BMI: 29.5 Code : 76797-1 Heart Rate 1 : 68 bpm Height: 5'6" SpO2: 98% Weight: 180 lbs 01/22/2016 Blood Pressure 1: 132/80 Code : 8480-6 BMI: 29.8 Code : 40404-0 Heart Rate 1 : 76 bpm Height: 5'6" SpO2: 98% Temperature: 35.7 (C) / 96.2 (F) Weight: 182 lbs 01/07/2016 Blood Pressure 1: 134/86 Code : 8480-6 BMI: 30.0 Code : 67393-6 Heart Rate 1 : 78 bpm Height: 5'6" SpO2: 98% Weight: 183 lbs 12/03/2015 Blood Pressure 1: 146/86 Code : 8480-6 BMI: 30.2 Code : 74135-5 Heart Rate 1 : 93 bpm Height: 5'6" SpO2: 98% Weight: 184 lbs 8 oz 09/17/2015 Blood Pressure 1: 140/88 Code : 8480-6 BMI: 29.5 Code : 96055-1 Heart Rate 1 : 77 bpm Height: 5'6" SpO2: 98% Weight: 180 lbs 05/29/2015 Blood Pressure 1: 140/80 Code : 8480-6 BMI: 28.2 Code : 46181-2 Heart Rate 1 : 83 bpm Height: 5'6" SpO2: 98% Weight: 172 lbs 12/12/2014 Blood Pressure 1: 150/92 Code : 8480-6 BMI: 28.2 Code : 40590-2 Heart Rate 1 : 91 bpm Height: 5'6" SpO2: 96% Weight: 172 lbs 11/23/2014 Blood Pressure 1: 138/92 Code : 8480-6 11/22/2014 Blood Pressure 1: 126/80 Code : 8480-6 BMI: 28.7 Code : 67699-4 Heart Rate 1 : 86 bpm Height: 5'6" SpO2: 97% Weight: 175 lbs 11/14/2014 Blood Pressure 1: 130/82 Code : 8480-6 BMI: 28.7 Code : 38050-8 Heart Rate 1 : 72 bpm Height: 5'6" Temperature: 36.3 (C) / 97.4 (F) Weight: 175 lbs 09/04/2014 Blood Pressure 1: 128/82 Code : 8480-6 BMI: 30.3 Code : 13759-1 Heart Rate 1 : 80 bpm Height: 5'6" Weight: 185 lbs 08/04/2014 Blood Pressure 1: 140/82 Code : 8480-6 BMI: 31.3 Code : 53010-9 Heart Rate 1 : 92 bpm Height: 5'6" SpO2: 99% Weight: 191 lbs 04/11/2014 Blood Pressure 1: 142/80 Code : 8480-6 BMI: 34.7 Code : 15745-2 Heart Rate 1 : 74 bpm Height: 5'6" Weight: 212 lbs 01/05/2014 Blood Pressure 1: 144/84 Code : 8480-6 BMI: 36.7 Code : 84307-6 Heart Rate 1 : 89 bpm Height: 5'6" SpO2: 97% Weight: 224 lbs 10/10/2013 Blood Pressure 1: 112/70 Code : 8480-6 BMI: 36.1 Code : 44117-9 Heart Rate 1 : 104 bpm Height: 5'6" Weight: 220 lbs 08/02/2013 Blood Pressure 1: 178/98 Code : 8480-6 BMI: 36.4 Code : 03390-2 Heart Rate 1 : 100 bpm Height: 5'6" Weight: 222 lbs 06/30/2013 Blood Pressure 1: 142/82 Code : 8480-6 BMI: 35.9 Code : 73241-2 Heart Rate 1 : 86 bpm Height: 5'6" SpO2: 98% Temperature: 36.3 (C) / 97.3 (F) Weight: 219 lbs 06/20/2013 Blood Pressure 1: 126/78 Code : 8480-6 BMI: 36.2 Code : 61959-1 Heart Rate 1 : 76 bpm Height: 5'6" Weight: 221 lbs 06/06/2013 Blood Pressure 1: 158/98 Code : 8480-6 BMI: 36.2 Code : 68540-7 Heart Rate 1 : 92 bpm Height: 5'6" Weight: 221 lbs 02/21/2013 Blood Pressure 1: 128/82 Code : 8480-6 BMI: 35.2 Code : 26866-7 Heart Rate 1 : 80 bpm Height: 5'6" Temperature: 35.7 (C) / 96.3 (F) Weight: 215 lbs 12/13/2012 Blood Pressure 1: 132/86 Code : 8480-6 BMI: 35.7 Code : 72240-3 Heart Rate 1 : 80 bpm Height: 5'6" Weight: 218 lbs 09/23/2012 Blood Pressure 1: 132/90 Code : 8480-6 BMI: 36.2 Code : 03495-7 Heart Rate 1 : 84 bpm Height: 5'6" Weight: 221 lbs 06/14/2012 Blood Pressure 1: 134/84 Code : 8480-6 Heart Rate 1: 84 bpm Respiratory Rate : 20 bpm Weight: 221 lbs 05/21/2012 Blood Pressure 1: 136/80 Code : 8480-6 BMI: 35.9 Code : 04425-1 Heart Rate 1 : 20 bpm Height: [...] surgery was canceled. She was referred to field account director at acute renal failure Onset of Symptom [...] diabetes mellitus Exercise minimal exercise 01/05/2014 starting [facility] diabetes mellitus Pertinent Findings Denies [...] in the larynx 02/21/2013 patient went to [facility] thursday. was given a zpack, prednisone, and [...] data Encounters Encounter Performer Location Codes Date ([id number]) PREV VISIT EST AGE 40-64 Diagnosis: Encounter for general adult medical examination without abnormal findings[ICD10: Z00.00] Eleonora Curran MD, [facility] CPT-4: 24994 11/12/2016 ([id number]) 51963 EST. PATIENT, LEVEL III Diagnosis: Allergic rhinitis due to pollen[ICD10: J30.1] Diagnosis: Acute upper respiratory infection, unspecified[ICD10: J06.9] Talya Curran MD, [facility] CPT-4: 07141 09/16/2016 ([id number]) 09557 EST. PATIENT, LEVEL IV Diagnosis: Essential (primary) hypertension[ICD10: I10] Diagnosis: Type 2 diabetes mellitus without complications[ICD10: E11.9] Diagnosis: Functional diarrhea[ICD10: K59.1] Diagnosis: Mixed hyperlipidemia[ICD10: E78.2] Eleonora Curran MD, [facility] CPT-4: 30559 08/11/2016 ([id number]) 49140 EST. PATIENT, LEVEL III Diagnosis: Cramp and spasm[ICD10: R25.2] Diagnosis: Nausea[ICD10: R11.0] Talya Curran MD, [facility] CPT-4: 70424 03/31/2016 [id number] 68922 EST. PATIENT, LEVEL IV Diagnosis: Cough[ICD10: R05] Diagnosis: Essential (primary) hypertension[ICD10: I10] Diagnosis: Hypothyroidism, unspecified[ICD10: E03.9] Diagnosis: Gastro-esophageal reflux disease without esophagitis[ICD10: K21.9] Tayla Curran MD, [facility] CPT-4: 11668 02/01/2016 ([id number]) 33333 EST. PATIENT, LEVEL III Diagnosis: Cough[ICD10: R05] Diagnosis: Acute bronchitis, unspecified[ICD10: J20.9] Talya Curran MD, [facility] CPT-4: 32433 01/22/2016 ([id number]) 42546 EST. PATIENT, LEVEL IV Diagnosis: Type 2 diabetes mellitus without complications[ICD10: E11.9] Diagnosis: Essential (primary) hypertension[ICD10: I10] Diagnosis: Dysphagia, pharyngeal phase[ICD10: R13.13] Eleonora Curran MD, [facility] CPT-4: 51089 01/07/2016 ([id number]) 02251 EST. PATIENT, LEVEL IV Diagnosis: Type 2 diabetes mellitus without complications[ICD10: E11.9] Diagnosis: Essential (primary) hypertension[ICD10: I10] Diagnosis: Pain in right knee[ICD10: M25.561] Eleonora Curran MD, [facility] CPT-4: 29821 12/03/2015 ([id number]) 52749 EST. PATIENT, LEVEL IV Diagnosis: Type 2 diabetes mellitus with hyperglycemia[ICD10: E11.65] Diagnosis: Essential (primary) hypertension[ICD10: I10] Eleonora Curran MD, [facility] CPT-4: 03484 09/17/2015 ([id number]) 47182 EST. 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 PATIENT, LEVEL III Diagnosis: Diabetes mellitus, type II[ICD9: 250.00] Diagnosis: ESSENTIAL HYPERTENSION[ICD9: 401.9] Diagnosis: ESOPHAGEAL REFLUX[ICD9: 530.81] Eleonora Cruran MD, [facility] CPT- 4: 52618 12/12/2014 ([id number]) 99060 EST. PATIENT, LEVEL III Diagnosis: ALLERGIC URTICARIA[ICD9: 708.0] Kristan Curran MD [facility] CPT-4 : 78377 11/22/2014 ([id number]) 16097 EST. PATIENT, LEVEL III Diagnosis: Abdominal pain[ICD9: 789.00] Diagnosis: Status post gastric surgery[ICD9: V45.89] Kristan Curran MD, [facility] CPT-4: 48822 11/14/2014 ([id number]) 99462 EST. PATIENT, LEVEL III Diagnosis: Diabetes mellitus, type II[ICD9: 250.00] Diagnosis: ESSENTIAL HYPERTENSION[ICD9: 401.9] Diagnosis: OBESITY[ICD9: 278.00] Diagnosis: ESOPHAGEAL REFLUX[ICD9: 530.81] Eleonora Curran MD, [facility] CPT- 4: 34009 09/04/2014 ([id number]) 04791 EST. PATIENT, LEVEL IV Diagnosis: Diabetes mellitus, type II[ICD9: 250.00] Diagnosis: ESSENTIAL HYPERTENSION[ICD9: 401.9] Diagnosis: OBESITY[ICD9: 278.00] Eleonora Curran MD, [facility] CPT-4: 74416 08/04/2014 ([id number]) 93592 EST. PATIENT, LEVEL IV Diagnosis: Thyroid nodule[ICD9: 241.0] Diagnosis: Decreased renal function[ICD9: 593.9] Diagnosis: Diabetes mellitus, type II[ICD9: 250.00] Talya Curran MD, [facility] CPT-4: 88115 04/11/2014 ([id number]) 65295 EST. PATIENT, LEVEL IV Diagnosis: Chronic diarrhea[ICD9: 787.91] Diagnosis: DM W/O COMPLICATION TYPE II, UNCONTROLLED[ICD9: 250.02] Diagnosis: ESSENTIAL HYPERTENSION[ICD9: 401.9] Talya Curran MD, [facility] CPT-4: 09695 01/05/2014 53487 EST. PATIENT, LEVEL IV Diagnosis: DM W/O COMPLICATION TYPE II, UNCONTROLLED[ICD9: 250.02] Diagnosis: OBESITY[ICD9: 278.00] Diagnosis: Generalized anxiety disorder[ICD9: 300.02] Diagnosis: ESSENTIAL HYPERTENSION[ICD9: 401.9] Eleonora Curran MD [facility] CPT-4: 50004 10/10/2013 ([id number]) 94828 EST. PATIENT, LEVEL IV Diagnosis: DM W/O COMPLICATION TYPE II, UNCONTROLLED[ICD9: 250.02] Diagnosis: Shoulder pain, right[ICD9: 719.41] Diagnosis: INSOMNIA NOS[ICD9: 780.52] Eleonora Curran MD [facility] CPT- 4: 33475 08/02/2013 ([id number]) 21974 EST. PATIENT, LEVEL IV Diagnosis: DM W/O COMPLICATION TYPE II, UNCONTROLLED[SNOMED: 07228711] Diagnosis: COUGH[ICD9: 786.2] Diagnosis: MYALGIA AND MYOSITIS[ICD9: 729.1] Eleonora Curran MD [facility] CPT-4: 65989 06/30/2013 ([id number]) 08256 EST. PATIENT, LEVEL III Diagnosis: DM W/O COMPLICATION TYPE II, UNCONTROLLED[SNOMED: 37184585] Eleonora Curran MD , [facility] CPT-4: 78063 06/20/2013 ([id number]) 61030 EST. PATIENT, LEVEL IV Diagnosis: DM W/O COMPLICATION TYPE II, UNCONTROLLED[SNOMED: 22420932] Eleonora Curran MD [facility] CPT-4: 45099 06/06/2013 ([id number]) 88521 EST. PATIENT, LEVEL IV Diagnosis: Acute bronchitis[ICD9: 466.0] Diagnosis: Cough[ICD9: 786.2] Diagnosis: Myalgia[ICD9: 729.1] Eleonora Curran MD, [facility] CPT-4: 70023 02/21/2013 33222 EST. PATIENT, LEVEL IV Diagnosis: DM W/O COMPLICATION TYPE II, UNCONTROLLED[SNOMED: 65099471] Diagnosis: OBESITY[ICD9: 278.00] Diagnosis: Dietary counseling and surveillance[ICD9: V65.3] Eleonora Curran MD [facility] CPT-4: 01390 12/13/2012 ([id number]) 47508 EST. PATIENT, LEVEL IV Diagnosis: DM W/O COMPLICATION TYPE II, UNCONTROLLED[SNOMED: 68133473] Diagnosis: HYPERLIPIDEMIA[ICD9: 272.4] Eleonora Curran MD, [facility] CPT- 4: 15814 09/23/2012 ([id number]) 20736 EST. PATIENT, LEVEL IV Diagnosis: Diabetes mellitus type 2, uncontrolled[SNOMED: 31117358] Diagnosis: Hyperlipidemia[ICD9: 272.4] Diagnosis: ESSENTIAL HYPERTENSION[SNOMED: 81314828] Talya Curran MD, [facility] CPT-4: 48027 06/14/2012 OFFICE VISIT, NEW - LEVEL 3 Diagnosis: Influenza[ICD9: 487.1] Diagnosis: COUGH[ICD9: 786.2] Diagnosis: FEVER NOS[ICD9: 780.60] Diagnosis: Diarrhea[ICD9: 787.91] Diagnosis: Diabetes mellitus, type II[SNOMED: 122266638] Talya Curran MD, [facility] CPT-4: 51229 05/21/2012 Plan of Care Planned Activity Notes [...] renal functioning. 11/12/2016 Appointment: Eleonora Curran WPtel: [address] [place], [place] [id number] (15 min) Moderate 11/12/2016 Patient Education: Patient Medication Summary Completed 11/12/2016 Patient Education: Patient Medication Summary Completed 11/12/2016 Appointment: Eleonora Curran WPtel: [address] [place], [place] [id number] (15 min) Moderate 11/06/2016 Visit Plan: Allergies [...] patient's pharmacy. 09/16/2016 [facility] [phone] [phone] (10 min) Simple 09/16/2016 Patient Education: Patient Medication Summary Completed 09/16/2016 Care Plan: [facility] : 83855-3 Pending 08/16/2016 Visit Plan: Diabetes Mellitus - [...] acute concerns. 08/11/2016 App[facility]ment[facility] [phone] [facility] [place] (15 min) Moderate 08/11/2016 Patient Education: Patient Medication Summary Completed 08/11/2016 Patient Education: Obesity Completed 08/11/2016 Appointment: Eleonora Curran WPtel: [phone] [facility] (15 min) Moderate 07/14/2016 Patient Education: Patient Medication Summary Completed 07/04/2016 Care Plan: Cbc With Differential Pending 07/04/2016 Care Plan: Comp Metabolic Pending 07/04/2016 Care Plan: Tsh Pending 07/04/2016 Care Plan: Lipid Pending 07/04/2016 Care Plan: %Hba1C LOINC : 43080-1 Pending 07/04/2016 Care Plan: Free T4 Pending 07/04/2016 Appointment: Eleonora Curran WPtel: [phone] [facility] [place] (15 min) Moderate 06/16/2016 Appointment: Eleonora Curran WPtel: [phone] [facility] (15 min) Moderate 05/06/2016 Visit Plan: Gastroenteritis - discussed need to stay away from milk products while acutely ill with diarrhea and nausea and emesis as it may worsen the symptoms. Liquids initially until the nausea improves, then recommend to advance to bland diet for 1 day, then advance as tolerated. Call if symptoms not improved. 03/31/2016 Appointment: Talya Hernandez [facility]Ptel[phone] [place] (10 min) Simple 03/31/2016 Patient Education: [...] not improving. 02/01/2016 Appointment: Talya Hernandez WPtel: [phone] [phone] [place] (30 min) Complex 02/01/2016 Patient Education: Patient Medication Summary Completed 02/01/2016 Visit Plan: Bronchitis - acute case of bronchitis identified. Pt has been given antibiotics, breathing treatments as appropriate, and pt has been instructed to call if symptoms are not improved, or if symptoms acutely worsen. 01/22/2016 Appointment: Talya Hernandez WPtel: [phone] [phone] (15 min) Moderate 01/22/2016 Patient Education: Patient [...] to monitor 01/07/2016 Appointment: Eleonora Curran WPtel: [facility] [place] (15 min) Moderate 01/07/2016 Patient Education: [...] stopped 09/17/2015 Appointment: [facility] [phone] [facility] ([facility] min) Moderate 09/17/2015 Patient Education: [...] Completed 05/29/2015 Appointment: [facility] [phone] [facility] [place] (15 min) Moderate 05/22/2015 Appointment: [...] of control. 12/12/2014 Appointment: [facility] Cur[facility]el[facility] (15 min) Moderate 12/12/2014 Patient Education: Patient Medication Summary Completed 12/12/2014 Patient Education: Hypertension Completed 12/12/2014 Appointment: Taly[facility] Hernandez WPtel[phone] Follow up 11/28/2014 Patient Education: Patient [...] glucose readings are starting to become less controlled.[email or web address] sample - [id number] exp 02/2016 novonordisk Hypertension - well controlled - continue with current medications, continue with no added salt diet. Pt has been encouraged to exercise daily. The pt has been advised to call the office if there are any acute concerns about change in blood pressure readings at home. 09/04/2014 Appointment: [facility] [phone] [facility] Follow up 09/04/2014 Patient Education: Patient Medication Summary Completed 09/04/2014 Patient Education: Hypertension Completed 09/04/2014 Care Plan: Referral Order SNOMED-CT : [id number] Ordered 09/04/2014 Visit Plan: Hypertension - well [...] metformin 08/04/2014 Appointment: Eleonora Curran WPtel: [phone] [facility] Follow up 08/04/2014 Patient Education: Patient Medication Summary Completed 08/04/2014 Patient Education: Hypertension Completed 08/04/2014 Visit Plan: Thyroid nodules-nodule on left lobe has increased in size-biopsy scheduled for Decrease renal function- secondary to dehydration-repeat labs-maintain adequate oral intake-follow up with field account director as scheduled DM-hgb a1c improved-continue with same [...] Completed 01/05/2014 App[facility]ment[phone] [id number] Follow up 01/03/2014 Visit Plan: Diabetes [...] to relax. 10/10/2013 Appointment: [facility] Curran [id number] Follow [facility] 10/10/2013 Patient Education: Patient Medication Summary Completed 10/10/2013 Patient Education: Hypertension Completed 10/10/2013 [facility]ment[phone] [id number] Follow up 09/13/2013 App[facility]ment[facility] [phone] [id number] Follow up 08/03/2013 Visit Plan: Diabetes [...] options. 08/02/2013 [phone] [id number] [facility] 08/02/2013 Patient Education: Patient [...] care. 06/30/2013 App[facility]ment[phone] [id number] S[facility] 06/30/2013 Patient Education: Patient Medication [...] today. 06/20/2013 Appointment: [facility] [phone] [id number] [facility] 06/20/2013 Patient Education: Patient Medication Summary Completed 06/20/2013 Appointment: [phone] [id number] Follow up 06/13/2013 Visit Plan: Shoulder pain [...] acute bronchitis. 02/21/2013 Appointment: [phone] [id number] [facility] 02/21/2013 Patient Education: Patient Medication Summary Completed [...] months. 12/13/2012 Appointment: Eleonora Curran WPtel: [phone] [id number] Follow up 12/13/2012 Patient Education: Patient Medication [...] medications. 09/23/2012 Appointment: Eleonora Curran WPtel: [phone] [id number] Follow up 09/23/2012 Patient Education: Patient Medication [...] at home. 06/14/2012 Appointment: Talya Hernandez WPtel: [facility] [address] Follow up 06/14/2012 Patient Education: Patient Medication Summary Completed 06/14/2012 Patient Education: Hypertension Completed 06/14/2012 Visit Plan: Ppojf-rushm-kgwc aches-suspect influenza- patient no indication for tamiflu [...] controlled. 05/21/2012 Appointment: Talya Hernandez WPtel: [phone] [id number] [place] New Patient 05/21/2012 Patient Education: Patient Medication Summary Completed 05/21/2012 Referral: Hernandez Dennis WPtel: Referral Appointment Requested Instructions Comment Steroid shot today in the office Stop [...] pt also given RX for prednisone taper. Plan: (79069) FLU VAC NO PRSV 4 SHAKILA 3 [...] glucose control. Trulicity started - victoza stopped HOLD LIVALO AND FISH OIL X 1 [...] back worse than before her acute bronchitis. CHECK CHEM PANEL METFORMIN TO 500MG DAILY INCREASE PO FLUIDS . Thyroid nodules-nodule on left lobe has increased in size-biopsy scheduled for Decrease renal function-secondary to dehydration-repeat labs-maintain adequate oral intake-follow up with field account director as scheduled DM-hgb a1c improved-continue with same medications . Abdominal pain - UA negative. Check [...] until the results of the CT tomorrow. Start taking vitamin B12 liquid and folic [...] months based on previous levels of control. decrease metformin to 1000mg one time daily [...] medications for pneumonia as per urgent care. pt to stop cardizem, stop diovan, stop [...] lantus to 10 units daily stop metformin INCREASE LANTUS TO 15 UNITS AT BEDTIME [...] diet discussed in detail with patient today. . Diabetes Mellitus - Uncontrolled - per [...] starting to become less controlled.victoza sample - [id number] exp 02/2016 novonordisk Hypertension - well controlled [...] pt is to call for acute concerns. KENALOG INJECTION TODAY IN THE OFFICE START [...] thyroid, chem panel, CBC, and renal functioning. Pt has been advised to increase her [...] we will look into other treatment options. Increase lantus to 40 units daily. get [...] discomfort because she was able to relax. CLEAR LIQUID DIET-ADVANCE TO BLAND TOLERATED PROBIOTIC [...] as tolerated. Call if symptoms not improved. . Hypertension - well controlled - continue [...] - supportive care - continue to monitor [facility] AND THEN 1 PILL DAILY UNTIL GONE. I ALSO SENT A PRESCRIPTION FOR DIFLUCAN FOR A YEAST INFECTION. Recommend PROBIOTIC twice daily-lactobacillus. START TODAY. [facility] Culturelle Align IF THE DIARRHEA PERSISTS OR WORSENS, START FLAGYL 500MG THREE TIMES DAILY-I SENT IT TO [facility]. I will call phenergan with codeine cough syrup to [facility]. Okay to take 5- 10ml every 6 hours as needed for cough. . Axbqt-jirww-ntts aches-suspect influenza-patient no indication for tamiflu due [...] readings are starting to become less controlled. Add fish oil 1000mg po twice daily [...] in blood pressure readings at home. . Allergies - chronic - recommended pt [...]
--- OUTSIDE RECORDS SUMMARY | 2018-03-09 07:00 | XMS REPORT | Continuity of Care Document ---
Author Author [facility] Address Unknown Phone Unavailable Allergies Active Description Code Type Severity Reaction Onset Reported/Identified Relationship to Patient Clinical Status Yes No Known Drug Allergies [id number] Drug Allergy Unknown N/A 05/12/2014 Medications There is no data. Problems Date Dx Coded Attending Type Code Diagnosis Diagnosed By 03/26/1626 KHALIDA ARIAS DO Ot M75.02 ADHESIVE CAPSULITIS OF LEFT SHOULDER 03/21/2014 OLESYA PHD, GABRIEL Gomez V71.09 OBSERVATION OF OTHER SUSPECTED MENTAL CONDITION 04/17/2014 JAMES PACHECO INFORMATION CLERK BROKERAGE Ot 241.1 04/17/2014 JAMES PACHECO INFORMATION CLERK BROKERAGE Ot 241.1 04/17/2014 JUAN SHARPE, ASHLEY Rg Ot 241.0 04/24/2014 JAMES PACHECOP Ot 241.1 04/24/2014 JAMES PACHECO INFORMATION CLERK BROKERAGE Ot 241.1 05/05/2014 JAMES PACHECO INFORMATION CLERK BROKERAGE Ot 241.1 05/18/2014 MASSIMO SHARPE, CAROL Philippe Ot 241.0 NONTOX UNINODULAR GOITER 05/18/2014 MASSIMO SHARPE, CAROL Philippe Ot V58.69 OT MED,LT,CURRENT USE 05/26/2014 MASSIMO SHARPE, CAROL Philippe Ot 241.0 05/26/2014 MASSIMO SHARPE, CAROL Philippe Ot V72.63 05/26/2014 MASSIMO SHARPE, CAROL Philippe Ot V74.8 06/07/2014 MASSIMO SHARPE, CAROL Philippe Ot 275.41 06/07/2014 MASSIMO SHARPE, CAROL Philippe Ot V45.79 11/29/2014 MARIO SALAZAR APRN Ot 562.11 11/29/2014 MARIO SALAZAR APRN Ot V45.86 02/01/2016 ASHLEY MARTINEZ MD Ot 719.41 JOINT PAIN-SHLDER 02/01/2016 ASHLEY MARTINEZ MD Ot 726.10 BURSAE TENDONS DIS SHLDER NOS 02/01/2016 JUAN SHARPE, ASHLEY Rg Ot E000.8 OTHER EXTERNAL CAUSE STATUS 02/01/2016 JUAN SHARPE, ASHLEY Rg Ot E849.0 ACCIDENT IN HOME 02/01/2016 JUAN SHARPE, ASHLEY Rg Ot E888.9 FALL NOS 02/01/2016 JAMES PACHECOP Ot 794.5 ABN THYROID FUNCT STUDY 02/01/2016 JUAN SHARPE, ASHLEY Rg Ot 241.0 NONTOX UNINODULAR GOITER 02/01/2016 JAMES PACHECOP Ot 241.1 NONTOX MULTINODUL GOITER 02/01/2016 MASSIMO SHARPE, CAROL Philippe Ot 241.0 NONTOX UNINODULAR GOITER 02/01/2016 MASSIMO SHARPE, CAROL Philippe Ot V72.63 PRE-PROCEDURAL LABORATORY EXAMINATION 02/01/2016 MASSIMO SHARPE, CRAOL Philippe Ot V74.8 SCREEN-BACTERIAL DIS NEC 02/01/2016 CAROL KEYS MD Ot 275.41 HYPOCALCEMIA 02/01/2016 MASSIMO SHARPE, CAROL Philippe Ot V45.79 ACQRD ABSENCE OF OTH ORGAN 02/01/2016 MARIO SALAZAR RAILROAD SUPERVISOR OF ENGINES Ot 562.11 DIVERTICULITIS COLON (W/O MENT OF HEMORR 02/01/2016 MARIO SALAZAR RAILROAD SUPERVISOR OF ENGINES Ot V45.86 BARIATRIC SURGERY STATUS 02/06/2016 JAMES PACHECO Ot R05 COUGH 02/06/2016 JUAN SHARPE, ASHLEY Rg Ot 719.41 JOINT PAIN-SHLDER 02/06/2016 JUAN SHARPE, ASHLEY Rg Ot 726.10 BURSAE TENDONS DIS SHLDER NOS 02/06/2016 JUAN SHARPE, ASHLEY Rg Ot E000.8 OTHER EXTERNAL CAUSE STATUS 02/06/2016 ASHLEY MARTINEZ MD Ot E849.0 ACCIDENT IN HOME 02/06/2016 ASHLEY MARTINEZ MD Ot E888.9 FALL NOS 02/06/2016 JAMES PACHECO Ot 794.5 ABN THYROID FUNCT STUDY 02/06/2016 ASHLEY MARTINEZ MD Ot 241.0 NONTOX UNINODULAR GOITER 02/06/2016 JAMES PACHECO Ot 241.1 NONTOX MULTINODUL GOITER 02/06/2016 MASSIMO SHARPE, CAROL Philippe Ot 241.0 NONTOX UNINODULAR GOITER 02/06/2016 MASSIMO SHARPE, CAROL Philippe Ot V72.63 PRE-PROCEDURAL LABORATORY EXAMINATION 02/06/2016 MASSIMO SHARPE, CAROL Philippe Ot V74.8 SCREEN-BACTERIAL DIS NEC 02/06/2016 CAROL KEYS MD Ot 275.41 HYPOCALCEMIA 02/06/2016 CAROL KEYS MD Ot V45.79 ACQRD ABSENCE OF OTH ORGAN 02/06/2016 MARIO SALAZAR RAILROAD SUPERVISOR OF ENGINES Ot 562.11 DIVERTICULITIS COLON (W/O MENT OF HEMORR 02/06/2016 MARIO SALAZAR RAILROAD SUPERVISOR OF ENGINES Ot V45.86 BARIATRIC SURGERY STATUS 02/06/2016 JAMES PACHECO INFORMATION CLERK BROKERAGE Ot R05 COUGH 02/14/2016 JAMES PACHECO Ot R05 COUGH 06/17/2016 HUGO TEJEDA, KHALIDA Magdaleno Ot M75.02 ADHESIVE CAPSULITIS OF LEFT SHOULDER 06/25/2017 JUAN SHARPE, ASHLEY Rg Ot 719.41 JOINT PAIN-SHLDER 06/25/2017 JUAN SHARPE, ASHLEY Rg Ot 726.10 BURSAE TENDONS DIS SHLDER NOS 06/25/2017 JUAN SHARPE, ASHLEY Rg Ot E000.8 OTHER EXTERNAL CAUSE STATUS 06/25/2017 JUAN SHARPE, ASHLEY Rg Ot E849.0 ACCIDENT IN HOME 06/25/2017 JUAN SHARPE, ASHLEY Rg Ot E888.9 FALL NOS 06/25/2017 JAMES PACHECOP Ot 794.5 ABN THYROID FUNCT STUDY 06/25/2017 JUAN SHARPE, ASHLEY Rg Ot 241.0 NONTOX UNINODULAR GOITER 06/25/2017 JAMES PACHECO Ot 241.1 NONTOX MULTINODUL GOITER 06/25/2017 MASSIMO SHARPE, CAROL Philippe Ot 241.0 NONTOX UNINODULAR GOITER 06/25/2017 MASSIMO SHARPE, CAROL Philippe Ot V72.63 PRE-PROCEDURAL LABORATORY EXAMINATION 06/25/2017 MASSIMO SHARPE, CAROL Philippe Ot V74.8 SCREEN-BACTERIAL DIS NEC 06/25/2017 MASSIMO SHARPE, CAROL Philippe Ot 275.41 HYPOCALCEMIA 06/25/2017 CAROL KEYS MD Ot V45.79 ACQRD ABSENCE OF OTH ORGAN 06/25/2017 MARIO SALAZAR APRN Ot 562.11 DIVERTICULITIS COLON (W/O MENT OF HEMORR 06/25/2017 MARIO SALAZAR APRN Ot V45.86 BARIATRIC SURGERY STATUS 06/25/2017 JAMES PACHECO Ot R05 COUGH 07/23/2017 TREMAYNE MARQUEZ APRN Ot L90.5 SCAR CONDITIONS AND FIBROSIS OF SKIN 07/23/2017 TREMAYNE MARQUEZ APRN Ot Z47.89 ENCOUNTER FOR OTHER ORTHOPEDIC AFTERCARE Procedures Code [place] [address] PSYCH DIAGNOSTIC EVALUATION 03/21/2014 Results There is no data. Encounters ACCT No. Visit Date/Time Discharge Status Pt. Type Provider Facility Loc./Unit Complaint [id number] 03/21/2014 08:02:00 03/21/2014 23:59:59 CLS Outpatient OLESYA PHD, GABRIEL Gomez [id number] 07/30/2017 16:14:00 08/07/2017 13:40:00 DIS Outpatient TREMAYNE MARQUEZ APRN Via [facility] REHAB S/P PARTIAL PALMAR FASCIOTOMY L HAND [id number] 06/17/2016 15:58:00 06/17/2016 16:27:00 DIS Outpatient KHALIDA ARIAS DO [facility] REHAB L SHOULDER MILD ADHESIVE CAPSULITIS;CALCIFIC TENDI [id number] 02/01/2016 11:45:00 02/01/2016 23:59:59 CLS Outpatient JAMES PACHECO [facility] RAD COUGH [id number] 11/15/2014 09:04:00 11/15/2014 23:59:59 CLS Outpatient MARIO SALAZAR APRN [facility] RAD LLQ PAIN DIARRHEA DIVERTICULITIS [id number] 05/24/2014 16:05:00 05/24/2014 23:59:59 CLS Outpatient CAROL KEYS MD [facility] LAB HYPOCALCAEMCA [id number] 05/17/2014 06:00:00 05/18/2014 11:40:00 DIS Outpatient CAROL KEYS MD [facility] SDC THYROID NODULE [id number] 05/12/2014 08:04:00 05/12/2014 23:59:59 CLS Outpatient CAROL KEYS MD [facility] PREOP THYROID NODULE [id number] 04/13/2014 13:10:00 04/13/2014 23:59:59 CLS Outpatient JAMES PACHECO [facility] RAD MULTIPLE THYROID NODULES [id number] 03/31/2014 15:54:00 03/31/2014 23:59:59 CLS Outpatient ASHLEY MARTINEZ MD [facility] RAD THYROID NODULES [id number] 09/23/2013 13:20:00 09/23/2013 23:59:59 CLS Outpatient JAMES PACHECO [facility] RAD ABNORMAL THYROID LABS [id number] 06/09/2013 12:55:00 06/09/2013 23:59:59 CLS Outpatient ASHLEY MARTINEZ MD [facility] RAD FALL, RT SHOULDER PAIN [id number] 05/30/2013 07:55:00 05/30/2013 23:59:59 CLS Outpatient [id number] 03/09/2018 06:17:00 ACT Emergency DEJAN SHARPE, HERNANDEZ Gomez [facility] ER LEFT LEG NUMBNESS [id number] 02/23/2017 06:07:22 02/23/2017 23:59:59 CLS Outpatient [id number] 11/15/2014 09:06:50 ACT Document Registration [id number] 02/04/2017 16:40:00 02/04/2017 23:59:59 CLS Outpatient [facility]
[2018-03-09 07:02] LABS: FIBRIN DEGRADATION PRODUCTS 0.36 UG/ML (0.00-0.49); PROTHROMBIN TIME PATIENT 12.6 SEC (12.2-14.7)
[2018-03-09 07:06] LABS: ALANINE AMINOTRANSFERASE 16 U/L (0-55); ALBUMIN 4.4 GM/DL (3.2-4.5); ALKALINE PHOSPHATASE 158 U/L (40-136); BILIRUBIN,TOTAL 0.6 MG/DL (0.1-1.0); BUN/CREATININE RATIO 12; CALCIUM 10.1 MG/DL (8.5-10.1); CARBON DIOXIDE 29 MMOL/L (21-32); CHLORIDE 101 MMOL/L (98-107); GFR ESTIMATED 58; GLUCOSE 215 MG/DL (70-105); POTASSIUM 3.2 MMOL/L (3.6-5.0); SODIUM 143 MMOL/L (135-145)
--- NOTE | 2018-03-09 07:15 | ED Neurological Problem ---
General Chief Complaint: Neuro-Stroke Like Symptoms Stated Complaint: LEFT LEG NUMBNESS Nursing Triage Note: LEFT SIDED WEAKNESS/NUMBNESS Nursing Sepsis Screen: No Definite Risk Source: patient Exam Limitations: no limitations History of Present Illness Date Seen by Provider: Mar 09, 2018 Time Seen by Provider: 06:35 Initial Comments Here with report of left leg weakness that she noted at 130 but stated that it actually started feeling weird last night before she went to bed. Also notes some left arm weakness and states that it's just not working right. Recently was started on Prozac and had increased dosing yesterday and stated that she started feeling abnormal after that yesterday. Denies nausea or vomiting. Denies headache. Does have high blood pressure that appears to be uncontrolled. Denies chest pain or breathing problems. Has never had anything like this before. Timing/Duration: increasing, other (12 or more hours) Severity: moderate Associated Symptoms: No confusion, No fatigue, No loss of consciousness, No nausea/vomiting; numbness in legs/feet; No slurred speech; trouble walking, weakness Allergies and Home Medications Allergies Coded Allergies: No Known Drug Allergies (Unverified , 05/12/14) Home Medications Calcium Carb & Cit/Vitamin D3 1 Each Tablet.er, 1 TAB PO 1600, (Reported) Citalopram Hydrobromide 40 Mg Tablet, 40 MG PO DAILY, (Reported) Cyanocobalamin 1,000 Mcg Tablet.sa, 1,000 MCG PO 1600, (Reported) Diltiazem Hcl 360 Mg Tab.sr.24h, 360 MG PO DAILY, (Reported) Estradiol 1 Each Patch.tdsw, 0.075 MG TD GUAMAN,WE @ 0800, (Reported) Hydrochlorothiazide 25 Mg Tablet, 25 MG PO DAILY, (Reported) Insulin Glargine,Hum.rec.anlog 300 Unit/3 Ml Insuln.pen, 30 UNITS SQ HS, ( Reported) Liraglutide 0.6 Mg/0.1 Ml Pen.injctr, 1.8 MG SQ DAILY, (Reported) Metformin Hcl 500 Mg Tab.sr.24h, 500 MG PO HS, (Reported) Metoprolol Succinate 100 Mg Tab.sr.24h, 100 MG PO DAILY, (Reported) Omeprazole 40 Mg Capsule.dr, 40 MG PO DAILY, (Reported) Pediatric Multivit Comb No.42 1 Each Tab.chew, 1 EACH PO DAILY, (Reported) Valsartan 320 Mg Tablet, 320 MG PO DAILY, (Reported) Patient Home Medication List Home Medication List Reviewed: Yes Review of Systems Review of Systems Constitutional: see HPI; No fever; weakness Eyes: No Symptoms Reported Ears, Nose, Mouth, Throat: no symptoms reported Respiratory: no symptoms reported Cardiovascular: No chest pain, No edema Gastrointestinal: No abdominal pain, No nausea, No vomiting Genitourinary: no symptoms reported Musculoskeletal: see HPI; No back pain; muscle weakness Skin: no symptoms reported Psychiatric/Neurological: See HPI; Denies Headache; Tingling, Weakness All Other Systems Reviewed Negative Unless Noted: Yes Past Tushwnx-Stncwu-Hfblmx Hx Past Med/Social Hx: Reviewed Nursing Past Med/Soc Hx Patient Social History Alcohol Use: Denies Use Recreational Drug Use: No Smoking Status: Never a Smoker 2nd Hand Smoke Exposure: No Recent Foreign Travel: No Contact w/Someone Who Travel: No Recent Infectious Disease Expo: No Recent Hopitalizations: No Immunizations Up To Date Tetanus Booster (TDap): Unknown Date of Influenza Vaccine: Jan 09, 2014 Seasonal Allergies Seasonal Allergies: No Past Medical History Surgeries: Yes (ROTATOR CUFF REPAIR, ) Respiratory: No Cardiac: Yes Hypertension Neurological: No : No Reproductive Disorders: No Genitourinary: No Gastrointestinal: Yes Gastroesophageal Reflux Musculoskeletal: No Endocrine: Yes Diabetes, Insulin dep HEENT: No Cancer: No Psychosocial: No Integumentary: No Blood Disorders: No Family Medical History Reviewed Nursing Family Hx Physical Exam Vital Signs Vital Signs - First Documented 03/09/18 06:20 Temp 97.7 Pulse 91 Resp 18 B/P (MAP) 215/115 (148) Pulse Ox 98 O2 Delivery Room Air Capillary Refill : Less Than 3 Seconds Height, Weight, BMI Height: 5'6.00" Weight: 209lbs. oz. 94.259443gx; 33.73 BMI Method:Stated General Appearance: WD/WN, no apparent distress HEENT: PERRL/EOMI, pharynx normal Neck: full range of motion, supple Respiratory: lungs clear, normal breath sounds Cardiovascular: regular rate, rhythm, no murmur Peripheral Pulses: 2+ Dorsalis Pedis (R), 2+ Left Dors-Pedis (L), 2+ Radial Pulses (R), 2+ Radial Pulses (L) Gastrointestinal: non tender, soft Back: normal inspection, no CVA tenderness, no vertebral tenderness Extremities: non-tender, no calf tenderness Neurologic/Psychiatric: alert, oriented x 3, motor weakness (left arm and leg) Crainal Nerves: normal hearing, normal speech, PERRL Coordination/Gait: ABN nose to finger (L) Motor/Sensory: pronator drift (L), weak motor strength LUE, weak motor strength LLE Skin: normal color, warm/dry Stroke Onset of Symptoms Date of Onset of Symptoms: Mar 09, 2018 NIH Stroke Scale Assessment Level of Consciousness: 0=Alert (0), Level of Consciousness-Questions: 0= Answers both month/age (0), LOC Commands: 0=Performs both tasks (0), Visual Bhatia: 0=No visual loss (0), Facial Movement (Facial Paresis): 0=Normal symmetrical mnt (0), Motor Function-Arms Right: 0=No drift (0), Motor Function- Arms Left: 1=Drift (1), Motor Function-Legs Right: 0=No drift (0), Motor Function-Legs Left: 1=Drift (1), Limb Ataxia: 1=Present in one limb (1), Sensory : 0=Normal:no loss (0), Best Language: 0=No aphasia (0), Dysarthria: 0=Normal (0 ), Extinction & Inattention: 0=No abnormality (0), Total: Stroke Thrombolytic Exclusion Age 18 or Over: Yes Progress/Results/Core Measures Results/Orders Lab Results Laboratory Tests Test 03/09/18 06:40 03/09/18 08:07 Range/Units White Blood Count 10.6 4.3-11.0 10^3/uL Red Blood Count 5.55 4.35-5.85 10^6/uL Hemoglobin 15.5 11.5-16.0 G/DL Hematocrit 47 35-52 % Mean Corpuscular Volume 85 80-99 FL Mean Corpuscular Hemoglobin 28 25-34 PG Mean Corpuscular Hemoglobin Concent 33 32-36 G/DL Red Cell Distribution Width 13.0 10.0-14.5 % Platelet Count 327 130-400 10^3/uL Mean Platelet Volume 10.9 H 7.4-10.4 FL Neutrophils (%) (Auto) 78 H 42-75 % Lymphocytes (%) (Auto) 16 12-44 % Monocytes (%) (Auto) 5 0-12 % Eosinophils (%) (Auto) 1 0-10 % Basophils (%) (Auto) 1 0-10 % Neutrophils # (Auto) 8.3 H 1.8-7.8 X 10^3 Lymphocytes # (Auto) 1.7 1.0-4.0 X 10^3 Monocytes # (Auto) 0.5 0.0-1.0 X 10^3 Eosinophils # (Auto) 0.1 0.0-0.3 10^3/uL Basophils # (Auto) 0.1 0.0-0.1 10^3/uL Prothrombin Time 12.6 12.2-14.7 SEC INR Comment 1.0 0.8-1.4 Activated Partial Thromboplast Time 29 24-35 SEC D-Dimer 0.36 0.00-0.49 UG/ML Sodium Level 143 135-145 MMOL/L Potassium Level 3.2 L 3.6-5.0 MMOL/L Chloride Level 101 98-107 MMOL/L Carbon Dioxide Level 29 21-32 MMOL/L Anion Gap 13 5-14 MMOL/L Blood Urea Nitrogen 12 7-18 MG/DL Creatinine 1.00 0.60-1.30 MG/DL Estimat Glomerular Filtration Rate 58 BUN/Creatinine Ratio 12 Glucose Level 215 H 70-105 MG/DL Calcium Level 10.1 8.5-10.1 MG/DL Corrected Calcium 9.8 8.5-10.1 MG/DL Total Bilirubin 0.6 0.1-1.0 MG/DL Aspartate Amino Transf (AST/SGOT) 13 5-34 U/L Alanine Aminotransferase (ALT/SGPT) 16 0-55 U/L Alkaline Phosphatase 158 H 40-136 U/L Troponin I < 0.30 <0.30 NG/ML Total Protein 8.0 6.4-8.2 GM/DL Albumin 4.4 3.2-4.5 GM/DL TSH Garza Testing 6.07 H 0.35-4.94 UIU/ML Urine Color YELLOW Urine Clarity CLEAR Urine pH 7 5-9 Urine Specific [place] 1.010 L 1.016-1.022 Urine Protein 1+ H NEGATIVE Urine Glucose (UA) 2+ H NEGATIVE Urine Ketones NEGATIVE NEGATIVE Urine Nitrite NEGATIVE NEGATIVE Urine Bilirubin NEGATIVE NEGATIVE Urine Urobilinogen NORMAL NORMAL MG/DL Urine Leukocyte Esterase 1+ H NEGATIVE Urine RBC (Auto) NEGATIVE NEGATIVE Urine RBC NONE /HPF Urine WBC 0-2 /HPF Urine Squamous Epithelial Cells 2-5 /HPF Urine Crystals NONE /LPF Urine Bacteria NEGATIVE /HPF Urine Casts NONE /LPF Urine Mucus NEGATIVE /LPF Urine Culture Indicated NO My Orders Orders - HERNANDEZ WYLIE MD Cbc With Automated Diff (03/09/18 06:39) Protime With Inr (03/09/18 06:39) Partial Thromboplastin Time (03/09/18 06:39) Comprehensive Metabolic Panel (03/09/18 06:39) Fibrin Degradation Products (03/09/18 06:39) Troponin I (03/09/18 06:39) Ua Culture If Indicated (03/09/18 06:39) Chest 1 View, Ap/Pa Only (03/09/18 06:39) Ekg Tracing (03/09/18 06:39) Nothing By Mouth (03/09/18 Lunch) Accucheck Stat ONCE (03/09/18 06:39) Saline Lock/Iv-Start (03/09/18 06:39) Saline Lock/Iv-Start (03/09/18 06:39) Vital Signs Stroke Patient Q15M (03/09/18 06:39) O2 (03/09/18 06:39) Intake & Output 06,14,22 (03/09/18 06:39) Labetalol Injection (Normodyne Injection (03/09/18 06:39) Monitor-Rhythm Ecg Trace Only (03/09/18 06:39) Dysphagia Screening Tool (03/09/18 06:39) Lipid Panel (03/10/18 06:00) Ct Angio Head/Neck (03/09/18 06:39) I-Stat Bedside Testing (03/09/18 06:39) Thyroid Analyzer (03/09/18 07:15) Iohexol Injection (Omnipaque 350 Mg/Ml 1 (03/09/18 07:45) Contrast Received (Contrast Received) (03/09/18 07:45) Ns (Ivpb) (Sodium Chloride 0.9%) (03/09/18 07:45) Free T4 (Free Thyroxine) (03/09/18 06:40) Ns Iv 1000 Ml (Sodium Chloride 0.9%) (03/09/18 08:31) Hemoglobin A1c (03/09/18 09:03) Medications Given in ED Current Medications Medications Dose Ordered Sig/Brandon Route Start Time Stop Time Status Last Admin Dose Admin Iohexol 100 ml ONCE ONCE IV 03/09/18 07:45 03/09/18 07:46 DC 03/09/18 07:36 85 ML Sodium Chloride 250 ml ONCE ONCE IV 03/09/18 07:45 03/09/18 07:46 DC 03/09/18 07:37 80 ML Vital Signs/I&O 03/09/18 06:20 Temp 97.7 Pulse 91 Resp 18 B/P (MAP) 215/115 (148) Pulse Ox 98 O2 Delivery Room Air Blood Pressure Mean: 148 iStat Bedside Lab Testing Sodium (Na): 139.00 Potassium (K): 6.60 Chloride (CI): 99.00 TCO2: 34.00 Glucose (Glu): 218.00 Urea Nitrogen (BUN)/Urea: 16.00 Creatinine (Crea): 0.80 Anion Gap*: 14.00 FSBG Bedside Testing Finger Stick Blood Glucose: 218 Progress Progress Note : Progress Note Seen and evaluated. Initiated stroke order set due to presenting symptoms. Onset outside window for TPA so excluded. Low number on stroke scale with only 3 for pronator drift on labs and finger to nose abnormal on the left with mild difficulty. Blood pressure noted be elevated greater than 200 systolic. Labetalol 20 mg IV ordered. We will get CT of the head as well as CT angiogram of the head and neck. I-STAT was ordered to evaluate creatinine rapidly for CT and creatinine was 0.8. Monitor patient. 0836: Labs, CT and x-ray reviewed. No significant stroke noted but still concerns for underlying CVA. We will admit patient to the hospital for the labile hypertension in the left-sided weakness and order MRI inpatient as well as bilateral carotid ultrasound. This is discussed with the patient who agrees. I did discuss the case with Dr. Curran at this time and she accepts patient for admission, inpatient status. Blood pressure has improved to 193/93 with heart rate of 91. Patient did take own metoprolol 50 mg by mouth which is the extended release version. Initial ECG Impression Date: Mar 09, 2018 Initial ECG Impression Time: 06:47 Initial ECG Rate: 85 Initial ECG Rhythm: Normal Sinus Initial ECG Comparisson: No Previous ECG Available Comment Sinus rhythm with normal axis. No evidence of ST elevation IN. No previous available for comparison. Interpreted by me. Diagnostic Imaging Diagonstic Imaging: Xray Plain Films/CT/US/NM/MRI: chest Comments NAME: YURI KATHLEEN [facility] REC#: [id number] PT STATUS: REG ER : 1960 PHYSICIAN: HERNANDEZ WYLIE MD ADMIT DATE: 03/09/18/ER Signed Date of Exam: 03/09/18 CHEST 1 VIEW, AP/PA ONLY CHEST 1 VIEW, AP/PA ONLY Indication: Left-sided weakness Comparison: 02/01/2016 Findings: No focal airspace disease in the visualized lungs. Please note that the posterior lower lobes are poorly evaluated by portable radiography. No pleural effusion or pneumothorax. Normal cardiomediastinal silhouette. Impression: No acute cardiopulmonary process by portable radiography. Dictated by: Dictated on workstation # [id number] Dict: 03/09/18742 Trans: 03/09/18743 Interpreted by: THANH WAGGONER MD Electronically signed by: THANH WAGGONER MD 03/09/18743 Diagonstic Imaging: CT Plain Films/CT/US/NM/MRI: head Comments VIA [facility]. [place], [place] NAME: YURI KATHLEEN [facility] REC#: [id number] PT STATUS: REG ER : 1960 PHYSICIAN: HERNANDEZ WYLIE MD ADMIT DATE: 03/09/18/ER Draft Date of Exam:03/09/18 CT ANGIO HEAD/NECK PROCEDURE: CT angiography of the head and CT angiography of the neck with and without contrast. TECHNIQUE: Contiguous noncontrast images were obtained from the skull base through the vertex. After intravenous contrast administration, helical CT angiography of the neck was performed. Source data was reformatted into multiple MIP projections. Delayed post contrast acquisition was also obtained. INDICATION: Left-sided weakness Comparison: None available. Findings: Noncontrast CT head: No hyperdense hemorrhage or space-occupying mass. No hydrocephalus or midline shift. No loss at the walker-white matter differentiation to indicate acute/subacute infarct. Basilar cisterns remain widely patent. No fluid within the mastoid air cells. External auditory canals are clear. Paranasal sinuses are also clear. No acute skull fracture. Delayed phase postcontrast imaging of the head shows no pathologic enhancement. CTA neck: There is a two-vessel branching pattern of the aortic arch (bovine arch). The bilateral common carotid arteries are widely patent throughout the neck and without stenosis. There is a trace amount of calcified and noncalcified plaque at the origin of the left proximal internal carotid artery which does not result in significant stenosis per NASCET criteria. Right proximal internal carotid artery is normal. The cervical portions of the bilateral internal carotid arteries are patent. The origin of the bilateral vertebral arteries are patent. The left vertebral artery is dominant. Both vertebral arteries opacify throughout the cervical portions. Airway is patent. No cervical lymphadenopathy. The thyroid is likely surgically absent. Lung apices are clear. CTA head: The intracranial segments of the internal carotid arteries are patent. No supraclinoid aneurysm. The bilateral M1 and M2 divisions of the middle cerebral arteries are patent. The bilateral anterior cerebral arteries are patent. Anterior communicating artery is patent and there is no saccular aneurysm present. The intracranial segment of the right vertebral artery is diminutive but does supply the basilar artery along with a normal caliber intracranial segment of the left vertebral artery. Basilar artery is widely patent. There is no saccular aneurysm. The posterior cerebral arteries remain patent. Posterior inferior cerebellar arteries are normal. Impression: 1. Noncontrast imaging shows no intracranial hemorrhage or evidence of a territorial infarct. 2. No significant stenosis or occlusion in the neck arteries. 3. No intracranial major artery occlusion or stenosis. No saccular aneurysm. Dictated on workstation # [id number] Dict: 03/09/18 0744 Trans: 03/09/18 0805 [facility] [id number] Interpreted by: THANH WAGGONER MD Electronically signed by: Departure Communication (Admissions) Time/Spoke to Admitting Phy: 08:36 Impression Primary Impression: Labile hypertension Additional Impressions: Left-sided weakness Hypothyroidism Qualified Codes: E03.9 - Hypothyroidism, unspecified Uncontrolled diabetes mellitus Qualified Codes: E11.65 - Type 2 diabetes mellitus with hyperglycemia Disposition: ADMITTED INPATIENT Condition: Stable Admissions Decision to Admit Reason: Admit from ER (General) Decision to Admit/Date: Mar 09, 2018 Time/Decision to Admit Time: 08:36 Departure-Patient Inst. Referrals: ASHLEY CURRAN MD (PCP/Family) Primary Care Physician HERNANDEZ WYLIE MD Mar 09, 2018 07:15
[2018-03-09] MEDS ORDERED: IOHEXOL 350 MG/ML 100 ML (OMNIPAQUE 350) VIAL IV ONE (07:45)
[2018-03-09] MEDS ORDERED: RECEIVED CONTRAST (Hold Metformin) IV SCH (07:45)
[2018-03-09] MEDS ORDERED: NS 250 ML (IVPB) BAG IV ONE (07:45)
--- NOTE | 2018-03-09 07:47 | Diagnostic Imaging Report ---
CHEST 1 VIEW, AP/PA ONLY Indication: Left-sided weakness Comparison: 02/01/2016 Findings: No focal airspace disease in the visualized lungs. Please note that the posterior lower lobes are poorly evaluated by portable radiography. No pleural effusion or pneumothorax. Normal cardiomediastinal silhouette. Impression: No acute cardiopulmonary process by portable radiography. Dictated by: Dictated on workstation # [id number]
[2018-03-09 08:03] LABS: TSH (THYROID ANALYZER) 6.07 UIU/ML (0.35-4.94)
--- NOTE | 2018-03-09 08:05 | Diagnostic Imaging Report ---
PROCEDURE: CT angiography of the head and CT angiography of the neck with and without contrast. TECHNIQUE: Contiguous noncontrast images were obtained from the skull base through the vertex. After intravenous contrast administration, helical CT angiography of the neck was performed. Source data was reformatted into multiple MIP projections. Delayed post contrast acquisition was also obtained. INDICATION: Left-sided weakness Comparison: None available. Findings: Noncontrast CT head: No hyperdense hemorrhage or space-occupying mass. No hydrocephalus or midline shift. No loss at the walker-white matter differentiation to indicate acute/subacute infarct. Basilar cisterns remain widely patent. No fluid within the mastoid air cells. External auditory canals are clear. Paranasal sinuses are also clear. No acute skull fracture. Delayed phase postcontrast imaging of the head shows no pathologic enhancement. CTA neck: There is a two-vessel branching pattern of the aortic arch (bovine arch). The bilateral common carotid arteries are widely patent throughout the neck and without stenosis. There is a trace amount of calcified and noncalcified plaque at the origin of the left proximal internal carotid artery which does not result in significant stenosis per NASCET criteria. Right proximal internal carotid artery is normal. The cervical portions of the bilateral internal carotid arteries are patent. The origin of the bilateral vertebral arteries are patent. The left vertebral artery is dominant. Both vertebral arteries opacify throughout the cervical portions. Airway is patent. No cervical lymphadenopathy. The thyroid is likely surgically absent. Lung apices are clear. CTA head: The intracranial segments of the internal carotid arteries are patent. No supraclinoid aneurysm. The bilateral M1 and M2 divisions of the middle cerebral arteries are patent. The bilateral anterior cerebral arteries are patent. Anterior communicating artery is patent and there is no saccular aneurysm present. The intracranial segment of the right vertebral artery is diminutive but does supply the basilar artery along with a normal caliber intracranial segment of the left vertebral artery. Basilar artery is widely patent. There is no saccular aneurysm. The posterior cerebral arteries remain patent. Posterior inferior cerebellar arteries are normal. Impression: 1. Noncontrast imaging shows no intracranial hemorrhage or evidence of a territorial infarct. 2. No significant stenosis or occlusion in the neck arteries. 3. No intracranial major artery occlusion or stenosis. No saccular aneurysm. Dictated by: Dictated on workstation # [id number]
[2018-03-09 08:19] LABS: BILIRUBIN,URINE NEGATIVE (NEGATIVE); CLARITY,URINE CLEAR; COLOR,URINE YELLOW; GLUCOSE, URINE (UA) 2+ (NEGATIVE); KETONES,URINE NEGATIVE (NEGATIVE); LEUKOCYTE ESTERASE ,URINE 1+ (NEGATIVE); NITRITE,URINE NEGATIVE (NEGATIVE); PH,URINE 7 (5-9); PROTEIN,URINE 1+ (NEGATIVE); UROBILINOGEN,URINE NORMAL (NORMAL)
[2018-03-09 08:30] LABS: BACTERIA,URINE NEGATIVE /HPF; WBC,URINE 0-2 /HPF
[2018-03-09] MEDS ORDERED: NS IV 1000 ML 1,000 ML IV STA (08:31)
[2018-03-09 09:23] LABS: FREE T4 (FREE THYROXINE) 1.1 NG/DL (0.70-1.48)
--- OUTSIDE RECORDS SUMMARY | 2018-03-09 09:49 | XMS REPORT | Clinical Summary ---
Author Author [facility] Organization [facility] Address Unknown Phone Unavailable Care Team Providers Care Database Tester Name Role Phone Torrey Mccabe MD Unavailable Eleonora Curran MD PCP Source Comments Some departments are not documenting in the electronic medical record. If you do not see the information that you expected, contact Release of Information in the Health Information Management department at [phone] for further assistance in locating additional records.[facility] Allergies Active Allergy Reactions Severity Noted Date [...] Taken Blood Pressure 130/86 05/10/2014 1:13 PM FITTER TYPE BAR AND SEGMENT Pulse 96 05/10/2014 1:13 PM FITTER TYPE BAR AND SEGMENT Temperature 36.9 C (98.5 F) 05/10/2014 1:10 PM FITTER TYPE BAR AND SEGMENT Respiratory Rate 18 05/10/2014 1:10 PM FITTER TYPE BAR AND SEGMENT Oxygen Saturation - - Inhaled Oxygen - - Concentration Weight 95.1 kg (209 lb 9.6 oz) 05/10/2014 1:10 PM FITTER TYPE BAR AND SEGMENT Height - - Body Mass Index - [...]
--- OUTSIDE RECORDS SUMMARY | 2018-03-09 09:49 | XMS REPORT | Clinical Summary ---
Author Author [facility] Organization [facility] Address Unknown Phone Unavailable Care Team Providers Care Resource Teacher Name Role Phone PCP Unavailable Allergies No [...]
--- OUTSIDE RECORDS SUMMARY | 2018-03-09 10:18 | XMS REPORT | Continuity of Care Document ---
Author Author [facility] Address Unknown Phone Unavailable Allergies Active Description Code Type Severity Reaction Onset Reported/Identified Relationship to Patient Clinical Status Yes No Known Drug Allergies [id number] Drug Allergy Unknown N/A 05/12/2014 Medications There is no data. Problems Date Dx Coded Attending Type Code Diagnosis Diagnosed By 03/26/1626 KHALIDA ARIAS DO Ot M75.02 ADHESIVE CAPSULITIS OF LEFT SHOULDER 03/21/2014 OLESYA PHD, GABRIEL Gomez V71.09 OBSERVATION OF OTHER SUSPECTED MENTAL CONDITION 04/17/2014 JAMES PACHECO [facility]ICE/HOME HEALTH AIDE Ot 241.1 04/17/2014 JAMES PAC[facility]CO H[facility]PICE/HOME HEALTH AIDE Ot 241.1 04/17/2014 JUAN SHARPE, ASHLEY Rg Ot 241.0 04/24/2014 JAMES PACHECOP Ot 241.1 04/24/2014 JAMES [facility]CO [facility]PICE/HOME HEALTH AIDE Ot 241.1 05/05/2014 JAMES [facility]CO [facility]/HOME HEALTH AIDE Ot 241.1 05/18/2014 MASSIMO SHARPE, CAROL Philippe [...] V72.63 PRE-PROCEDURAL LABORATORY EXAMINATION 02/01/2016 MASSIMO SHARPE, CAROL Philippe Ot V74.8 SCREEN-BACTERIAL DIS NEC 02/01/2016 CAROL KEYS MD Ot 275.41 HYPOCALCEMIA 02/01/2016 MASSIMO SHARPE, CAROL Philippe Ot V45.79 ACQRD ABSENCE OF OTH ORGAN 02/01/2016 MARIO SALAZAR LOG MARKER Ot 562.11 DIVERTICULITIS COLON (W/O MENT OF HEMORR 02/01/2016 MARIO SALAZAR LOG MARKER Ot V45.86 BARIATRIC SURGERY STATUS 02/06/2016 JAMES [...] ABSENCE OF OTH ORGAN 02/06/2016 MARIO SALAZAR LOG MARKER Ot 562.11 DIVERTICULITIS COLON (W/O MENT OF HEMORR 02/06/2016 MARIO SALAZAR LOG MARKER Ot V45.86 BARIATRIC SURGERY STATUS 02/06/2016 JAMES [facility]CO [facility]/HOME HEALTH AIDE Ot R05 COUGH 02/14/2016 JAMES PACHECO Ot [...] V45.86 BARIATRIC SURGERY STATUS 06/25/2017 JAMES PAC[facility]CO [facility]PICE/HOME HEALTH AIDE Ot R05 COUGH 07/23/2017 TREMAYNE MARQUEZ APRN Ot L90.5 SCAR CONDITIONS AND FIBROSIS OF SKIN 07/23/2017 TREMAYNE MARQUEZ APRN Ot Z47.89 ENCOUNTER FOR OTHER ORTHOPEDIC AFTERCARE Procedures Code Description [place] [address] [facility] DIAGNOSTIC EVALUATION 03/21/2014 Results Test Result Range Complete blood count (CBC) with automated white blood cell (WBC) differential - 03/09/18 06:40 Blood leukocytes automated count (number/volume) 10.6 10*3/uL 4.3-11.0 Blood erythrocytes automated count (number/volume) 5.55 10*6/uL 4.35-5.85 Venous blood hemoglobin measurement (mass/volume) 15.5 g/dL 11.5-16.0 Blood hematocrit (volume fraction) 47 % 35-52 Automated erythrocyte mean corpuscular volume 85 [foz_us] 80-99 Automated erythrocyte mean corpuscular hemoglobin (mass per erythrocyte) 28 pg 25-34 Automated erythrocyte mean corpuscular hemoglobin concentration measurement ( mass/volume) 33 g/dL 32-36 Automated erythrocyte distribution width ratio 13.0 % 10.0-14.5 Automated blood platelet count (count/volume) 327 10*3/uL 130-400 Automated blood platelet mean volume measurement 10.9 [foz_us] 7.4-10.4 Automated blood neutrophils/100 leukocytes 78 % 42-75 Automated blood lymphocytes/100 leukocytes 16 % 12-44 Blood monocytes/100 leukocytes 5 % 0-12 Automated blood eosinophils/100 leukocytes 1 % 0-10 Automated blood basophils/100 leukocytes 1 % 0-10 Blood neutrophils automated count (number/volume) 8.3 10*3 1.8-7.8 Blood lymphocytes automated count (number/volume) 1.7 10*3 1.0-4.0 Blood monocytes automated count (number/volume) 0.5 10*3 0.0-1.0 Automated eosinophil count 0.1 10*3/uL 0.0-0.3 Automated blood basophil count (count/volume) 0.1 10*3/uL 0.0-0.1 Comprehensive metabolic panel - 03/09/18 06:40 Serum or plasma sodium measurement (moles/volume) 143 mmol/L 135-145 Serum or plasma potassium measurement (moles/volume) 3.2 mmol/L 3.6-5.0 Serum or plasma chloride measurement (moles/volume) 101 mmol/L 98-107 Carbon dioxide 29 mmol/L 21-32 Serum or plasma anion gap determination (moles/volume) 13 mmol/L 5-14 Serum or plasma urea nitrogen measurement (mass/volume) 12 mg/dL 7-18 Serum or plasma creatinine measurement (mass/volume) 1.00 mg/dL 0.60-1.30 Serum or plasma urea nitrogen/creatinine mass ratio 12 NRG Serum or plasma creatinine measurement with calculation of estimated glomerular filtration rate 58 NRG Serum or plasma glucose measurement (mass/volume) 215 mg/dL 70-105 Serum or plasma calcium measurement (mass/volume) 10.1 mg/dL 8.5-10.1 Serum or plasma total bilirubin measurement (mass/volume) 0.6 mg/dL 0.1-1.0 Serum or plasma alkaline phosphatase measurement (enzymatic activity/volume) 158 U/L 40-136 Serum or plasma aspartate aminotransferase measurement (enzymatic activity/ volume) 13 U/L 5-34 Serum or plasma alanine aminotransferase measurement (enzymatic activity/volume ) 16 U/L 0-55 Serum or plasma protein measurement (mass/volume) 8.0 g/dL 6.4-8.2 Serum or plasma albumin measurement (mass/volume) 4.4 g/dL 3.2-4.5 CALCIUM CORRECTED 9.8 mg/dL 8.5-10.1 PT panel in platelet poor plasma by coagulation assay - 03/09/18 06:40 Prothrombin time (PT) in platelet poor plasma by coagulation assay 12.6 s 12.2-14.7 INR in platelet poor plasma or blood by coagulation assay 1.0 0.8-1.4 Activated partial thromboplastin time (aPTT) in platelet poor plasma bycoagulation assay - 03/09/18 06:40 Activated partial thromboplastin time (aPTT) in platelet poor plasma bycoagulation assay 29 s 24-35 Fibrin D-dimer FEU measurement in platelet poor plasma (mass/volume) - 06:40 Fibrin D-dimer FEU measurement in platelet poor plasma (mass/volume) 0.36 ug/mL 0.00-0.49 Serum or plasma troponin i.cardiac measurement (mass/volume) - 03/09/18 06:40 Serum or plasma troponin i.cardiac measurement (mass/volume) < ng/ mL <0.30 Serum or plasma thyroxine (T4) free measurement (mass/volume) - 03/09/18 06:40 Serum or plasma thyroxine (T4) free measurement (mass/volume) 1.10 ng/dL 0.70-1.48 Serum or plasma thyrotropin measurement by detection limit <=0.05 miu/l (units/ volume) - 03/09/18 06:40 Serum or plasma thyrotropin measurement by detection limit <=0.05 miu/l (units/ volume) 6.07 u[iU]/mL 0.35-4.94 Complete urinalysis with reflex to culture - 03/09/18 08:07 Urine color determination YELLOW NRG Urine clarity determination CLEAR NRG Urine pH measurement by test strip 7 5-9 Specific gravity of urine by test strip 1.010 1.016- 1.022 Urine protein assay by test strip, semi-quantitative 1+ NEGATIVE Urine glucose detection by automated test strip 2+ NEGATIVE Erythrocytes detection in urine sediment by light microscopy NEGATIVE NEGATIVE Urine ketones detection by automated test strip NEGATIVE NEGATIVE Urine nitrite detection by test strip NEGATIVE NEGATIVE Urine total bilirubin detection by test strip NEGATIVE NEGATIVE Urine urobilinogen measurement by automated test strip (mass/volume) NORMAL NORMAL Urine leukocyte esterase detection by dipstick 1+ NEGATIVE Automated urine sediment erythrocyte count by microscopy (number/high power field) NONE NRG Automated urine sediment leukocyte count by microscopy (number/high power field ) [HPF] NRG Bacteria detection in urine sediment by light microscopy NEGATIVE NRG Squamous epithelial cells detection in urine sediment by light microscopy 2-5 NRG Crystals detection in urine sediment by light microscopy NONE NRG Casts detection in urine sediment by light microscopy NONE NRG Mucus detection in urine sediment by light microscopy NEGATIVE NRG Complete urinalysis with reflex to culture NO NRG Encounters ACCT No. Visit Date/Time Discharge Status Pt. Type Provider Facility Loc./Unit Complaint [id number] 03/21/2014 08:02:00 03/21/2014 23:59:59 MARILY DACOSTA PHD, GABRIEL Gomez [id number] 07/30/2017 16:14:00 08/07/2017 13:40:00 DIS Outpatient TREMAYNE MARQUEZ LOG MARKER [facility] REHAB S/P PARTIAL PALMAR FASCIOTOMY L HAND [id number] 06/17/2016 15:58:00 06/17/2016 16:27:00 DIS Outpatient KHALIDA ARIAS DO [facility] REHAB L SHOULDER MILD ADHESIVE CAPSULITIS;CALCIFIC TENDI [id number] 02/01/2016 11:45:00 02/01/2016 23:59:59 CLS Outpatient JAMES PACHECO [facility] RAD COUGH [id number] 11/15/2014 09:04:00 11/15/2014 23:59:59 CLS Outpatient MARIO SALAZAR APRN [facility] RAD LLQ PAIN DIARRHEA DIVERTICULITIS [id number] 05/24/2014 16:05:00 05/24/2014 23:59:59 CLS Outpatient CAROL KEYS MD [facility] LAB HYPOCALCAEMCA [id number] 05/17/2014 06:00:00 05/18/2014 11:40:00 DIS Outpatient CAROL KEYS MD [facility] SDC THYROID NODULE [id number] 05/12/2014 08:04:00 05/12/2014 23:59:59 CLS Outpatient CAROL KEYS MD [facility] PREOP THYROID NODULE [id number] 04/13/2014 13:10:00 04/13/2014 23:59:59 CLS Outpatient JAMES PACHECO [facility] RAD MULTIPLE THYROID NODULES [id number] 03/31/2014 15:54:00 03/31/2014 23:59:59 CLS Outpatient ASHLEY MARTINEZ MD [facility] RAD THYROID NODULES [id number] 09/23/2013 13:20:00 09/23/2013 23:59:59 CLS Outpatient JAMES PACHECO [facility] RAD ABNORMAL THYROID LABS [id number] 06/09/2013 12:55:00 06/09/2013 23:59:59 CLS Outpatient JUAN SHARPE, ASHLEY Rg [facility] RAD FALL, RT SHOULDER PAIN [id number] 05/30/2013 07:55:00 05/30/2013 23:59:59 CLS Outpatient [id number] 03/09/2018 09:25:00 ACT Inpatient JUAN SHARPE, ASHLEY Rg [facility] 4TH HTN;L SIDE WEAKNESS;HYPOTHYROIDISM; UNCONTROLLED DM 0000 02/23/2017 06:07:22 02/23/2017 23:59:59 CLS Outpatient [id number] 11/15/2014 09:06:50 ACT Document Registration [id number] 02/04/2017 16:40:00 02/04/2017 23:59:59 C[facility]
[2018-03-09] MEDS: NS IV 1000 ML 1,000 ML IV SCH (13:30)
[2018-03-09] MEDS ORDERED: DULO60CA58 PO (13:41)
[2018-03-09] MEDS ORDERED: POTA10TA10 PO (13:46)
[2018-03-09] MEDS ORDERED: ASPI-983 PO (13:46)
[2018-03-09] MEDS ORDERED: ESTR1PAT83 TD (13:46)
[2018-03-09] MEDS ORDERED: LIFI1DRO OU (13:47)
[2018-03-09] MEDS: inSUlin ASPART (NovoLOG) 1 UNIT/0.01 ML (CHARGE PER UNIT) SC SCH ×2 (14:39→20:29)
--- NOTE | 2018-03-09 15:38 | Diagnostic Imaging Report ---
PROCEDURE: MR imaging of the brain without contrast. TECHNIQUE: Multiplanar, multisequence MR imaging of the brain was performed without contrast. INDICATION: Left-sided weakness and dizziness. COMPARISON: Comparison is made with recent CT angiogram of the head and neck performed earlier the same day. FINDINGS: Diffusion-weighted imaging does show a small area of diffusion restriction in the right jaime radiata measuring approximately 2.2 cm AP x 0.9 cm transverse. This is consistent with an acute infarct. No other regions of diffusion restriction are identified. The normal expected flow-voids within the carotid siphons are seen. There is no midline shift. No acute intra-axial or extra-axial hemorrhage is detected. The corpus callosum is unremarkable. The sella and parasellar structures are unremarkable. IMPRESSION: 1. Small acute nonhemorrhagic infarct involving the right jaime radiata. No other significant abnormality is seen. Results were communicated to Dr. Eleonora Curran prior to this dictation. Dictated by: Dictated on workstation # [id number]
[2018-03-09 15:50] VITALS: BP 187/95
[2018-03-09] MEDS: CLOPIDOGREL 75 MG (PLAVIX) TABLET PO SCH (17:29)
[2018-03-09] MEDS ORDERED: lisINopril 10 MG (PRINIVIL) TABLET PO NR (17:30)
[2018-03-09] MEDS: ASPIRIN E.C. 81 MG (ECOTRIN) TAB PO SCH (17:30)
[2018-03-09] MEDS: ACETAMINOPHEN 325 MG TABLET PO PRN (17:30)
--- NOTE | 2018-03-09 17:44 | Consultation-Cardiology ---
HPI-Cardiology Cardiology Consultation Date of Consultation 03/09/18 Date of Admission Time Seen by Provider: 17:39 Indication: CVA HPI 57 years old lady with history of hypertension, family history of heart disease was in her usual state of health until yesterday around noon when she started feeling slightly unsteady and weaker in her left leg. Went to bed still having some weakness in her left side. Woke up at 1 in the morning unable to go to the bathroom or walk on her own, went back to bed and woke up at 5 in the morning with weakness in her left arm and left leg. Came into the emergency room and she was diagnosed with subacute CVA. Still having some residual weakness in her left arm and left leg, reporting some improvement. Denied any chest pain. Admit having some palpitation on and off. No shortness of breath. No syncope or near syncopal episodes Home Medications & Allergies Allergies: Coded Allergies: No Known Drug Allergies (Unverified , 05/12/14) Home Medication List Reviewed: Yes RYL-Wbhzsa-Svbjom Hx Patient Social History Marital Status: Employed/Student: employed Alcohol Use: Denies Use Recreational Drug Use: No Smoking Status: Never a Smoker 2nd Hand Smoke Exposure: No Recent Foreign Travel: No Recent Infectious Disease Expo: No Recent Hopitalizations: No Physical Abuse Screen: No Sexual Abuse: No Immunizations Up To Date Tetanus Booster (TDap): Unknown Date of Influenza Vaccine: Jan 11, 2018 Past Medical History Past medical history as described below Family Medical History Family Medical Hx Mother has history of stroke, sister has history of heart disease Review of Systems Constitutional: no symptoms reported, see HPI EENTM: see HPI, no symptoms reported Respiratory: see HPI; No cough, No dyspnea on exertion, No hemoptysis, No orthopnea, No phlegm, No short of breath, No stridor, No wheezing, No other Cardiovascular: see HPI; No chest pain, No edema, No Hx of Intervention; palpitations; No syncope, No vascular heart diseas, No other Gastrointestinal: no symptoms reported, see HPI Genitourinary: no symptoms reported, see HPI Musculoskeletal: no symptoms reported, see HPI Skin: no symptoms reported, see HPI Psychiatric/Neurological: See HPI, Depressed Reviewed Test Results Reviewed Test Results Lab Laboratory Tests Test 03/09/18 06:40 03/09/18 08:07 03/09/18 14:13 Range/Units White Blood Count 10.6 4.3-11.0 10^3/uL Red Blood Count 5.55 4.35-5.85 10^6/uL Hemoglobin 15.5 11.5-16.0 G/DL Hematocrit 47 35-52 % Mean Corpuscular Volume 85 80-99 FL Mean Corpuscular Hemoglobin 28 25-34 PG Mean Corpuscular Hemoglobin Concent 33 32-36 G/DL Red Cell Distribution Width 13.0 10.0-14.5 % Platelet Count 327 130-400 10^3/uL Mean Platelet Volume 10.9 H 7.4-10.4 FL Neutrophils (%) (Auto) 78 H 42-75 % Lymphocytes (%) (Auto) 16 12-44 % Monocytes (%) (Auto) 5 0-12 % Eosinophils (%) (Auto) 1 0-10 % Basophils (%) (Auto) 1 0-10 % Neutrophils # (Auto) 8.3 H 1.8-7.8 X 10^3 Lymphocytes # (Auto) 1.7 1.0-4.0 X 10^3 Monocytes # (Auto) 0.5 0.0-1.0 X 10^3 Eosinophils # (Auto) 0.1 0.0-0.3 10^3/uL Basophils # (Auto) 0.1 0.0-0.1 10^3/uL Prothrombin Time 12.6 12.2-14.7 SEC INR Comment 1.0 0.8-1.4 Activated Partial Thromboplast Time 29 24-35 SEC D-Dimer 0.36 0.00-0.49 UG/ML Sodium Level 143 135-145 MMOL/L Potassium Level 3.2 L 3.6-5.0 MMOL/L Chloride Level 101 98-107 MMOL/L Carbon Dioxide Level 29 21-32 MMOL/L Anion Gap 13 5-14 MMOL/L Blood Urea Nitrogen 12 7-18 MG/DL Creatinine 1.00 0.60-1.30 MG/DL Estimat Glomerular Filtration Rate 58 BUN/Creatinine Ratio 12 Glucose Level 215 H 70-105 MG/DL Calcium Level 10.1 8.5-10.1 MG/DL Corrected Calcium 9.8 8.5-10.1 MG/DL Total Bilirubin 0.6 0.1-1.0 MG/DL Aspartate Amino Transf (AST/SGOT) 13 5-34 U/L Alanine Aminotransferase (ALT/SGPT) 16 0-55 U/L Alkaline Phosphatase 158 H 40-136 U/L Troponin I < 0.30 <0.30 NG/ML Total Protein 8.0 6.4-8.2 GM/DL Albumin 4.4 3.2-4.5 GM/DL Free Thyroxine 1.10 0.70-1.48 NG/DL TSH Yancey Testing 6.07 H 0.35-4.94 UIU/ML Urine Color YELLOW Urine Clarity CLEAR Urine pH 7 5-9 Urine Specific [place] 1.010 L 1.016-1.022 Urine Protein 1+ H NEGATIVE Urine Glucose (UA) 2+ H NEGATIVE Urine Ketones NEGATIVE NEGATIVE Urine Nitrite NEGATIVE NEGATIVE Urine Bilirubin NEGATIVE NEGATIVE Urine Urobilinogen NORMAL NORMAL MG/DL Urine Leukocyte Esterase 1+ H NEGATIVE Urine RBC (Auto) NEGATIVE NEGATIVE Urine RBC NONE /HPF Urine WBC 0-2 /HPF Urine Squamous Epithelial Cells 2-5 /HPF Urine Crystals NONE /LPF Urine Bacteria NEGATIVE /HPF Urine Casts NONE /LPF Urine Mucus NEGATIVE /LPF Urine Culture Indicated NO Glucometer 172 H 70-110 MG/DL Physical Exam Vital Signs Vital Signs - First Documented 03/09/18 06:20 Temp 97.7 Pulse 91 Resp 18 B/P (MAP) 215/115 (148) Pulse Ox 98 O2 Delivery Room Air Capillary Refill : Less Than 3 Seconds Height, Weight, BMI Height: 5'6.00" Weight: 209lbs. 0.0oz. 94.781541nl; 33.7 BMI Method:Stated General Appearance: No Apparent Distress, WD/WN Eyes: Bilateral Eye Normal Inspection, Bilateral Eye PERRL, Bilateral Eye EOMI HEENT: PERRL/EOMI, TMs Normal, Normal ENT Inspection, Pharynx Normal Neck: Full Range of Motion, Normal Inspection, Non Tender, Supple, Carotid Bruit Respiratory: Chest Non Tender, Lungs Clear, Normal Breath Sounds, No Accessory Muscle Use, No Respiratory Distress Cardiovascular: Regular Rate, Rhythm, No Edema, No Gallop, No JVD, No Murmur, Normal Peripheral Pulses Gastrointestinal: Normal Bowel Sounds, No Organomegaly, No Pulsatile Mass, Non Tender, Soft Back: Normal Inspection, No CVA Tenderness, No Vertebral Tenderness Extremity: Normal Capillary Refill, Normal Inspection, Normal Range of Motion, Non Tender, No Calf Tenderness, No Pedal Edema Neurologic/Psychiatric: Alert, Oriented x3, Normal Mood/Affect, Motor Weakness (Left arm has mild weakness, slightly more weakness on the left leg) Skin: Normal Color, Warm/Dry Lymphatic: No Adenopathy A/P-Cardiology Admission Diagnosis CVA Palpitation Hypertension Hyperlipidemia Assessment/Plan Subacute CVA, did not qualify for TPA, started on aspirin and Plavix. Right sided diagnosed by MRI. Continue on aspirin and Plavix. Planning to evaluate echocardiogram, awaiting carotid ultrasound History of palpitation, questionable paroxysmal atrial fibrillation, maintained on telemetry. We'll continue monitoring. Hypertension, poorly controlled, history of hypertension, I will restart her home medication monitor blood pressure Question hyperlipidemia will be starting on Lipitor 80 mg and monitor tolerance History of depression Diabetes mellitus, followed and managed by primary care physician Hypothyroidism followed and managed by primary care physician Clinical Quality Measures DVT/VTE Risk/Contraindication: Risk Factor Score Per Nursin RFS Level Per Nursing on Admit: 4+=Very High Stroke: Date of last known well: Mar 09, 2018 ANEUDY BLACKBURN MD Mar 09, 2018 17:44
--- NOTE | 2018-03-09 18:59 | History & Physicial ---
History of Present Illness History of Present Illness Reason for visit/HPI PT IS A 57 Y/O FEMALE WHO IS KNOWN TO ME FROM CLINIC. SHE PRESENTED TO THE EMERGENCY DEPARTMENT THIS MORNING WITH COMPLAINT OF LEFT UPPER AND LOWER EXTREMITY WEAKNESS. APPARENTLY YESTERDAY AT 1500 SHE HAD WEAKNESS OF HER LEG AND THEN IT PROGRESSED OVER THE DAY- WHEN SHE WOKE UP IN THE MIDDLE OF THE NIGHT /EARLY THIS MORNING WITH WORSENING WEAKNESS OF HER LEFT LEG AND LEFT ARM. I SAW HER IN THE ER WITH HER AND SISTER IN ATTENDANCE. SHE REPORTS THAT SHE HAS NOT BEEN CHECKING HER BLOOD GLUCOSE AT HOME NOR HAS SHE BEEN FOLLOWING HER DIABETIC DIET - SHE HAS BEEN EATING THE "LEFT-OVER HALLOWEEN CANDY ". SHE ALSO ADMITS TO NOT TAKING HER BLOOD PRESSURES AT HOME. SHE STATES THAT AFTER SHE TOOK HER HIGHER DOSE OF PROZAC IS WHEN HER LEFT LEG STARTED TO GET WEAK. Date of Admission Mar 09, 2018 at 09:25 Date Seen by a Provider: Mar 09, 2018 Time Seen by a Provider: 09:35 I consulted on this patient on 03/09/18 18:59 Attending Physician Eleonora Curran MD Admitting Physician Eleonora Curran MD Consult DR. BLACKBURN - CARDIOLOGY Allergies and Home Medications Allergies Coded Allergies: No Known Drug Allergies (Unverified , 05/12/14) Home Medications Aspirin 81 Mg Tablet.dr, 81 MG PO DAILY, (Reported) Atorvastatin Calcium 20 Mg Tablet, 20 MG PO DAILY, (Reported) Hydrochlorothiazide 25 Mg Tablet, 25 MG PO DAILY, (Reported) Insulin Degludec/Liraglutide 3 Ml Insuln.pen, 22 UNITS SC DAILY, (Reported) Levothyroxine Sodium 88 Mcg Tablet, 88 MCG PO DAILY, (Reported) Lifitegrast 1 Each Droperette, 1 DROP OU BID, (Reported) Metoprolol Succinate 50 Mg Tab.er.24h, 50 MG PO DAILY, (Reported) Potassium Chloride 10 Meq Tablet.er, 10 MEQ PO MoWeFr, (Reported) Patient Home Medication List Home Medication List Reviewed: Yes Past Lkpgdla-Pgdxyx-Hlnooc Hx Patient Social History Marrital Status: Living Status: LIVES AT HOME WITH SPOUSE AND DTR AND TWO GRANDCHILDREN 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[employer]) Alcohol Use: Denies Use Recreational Drug Use: No Smoking Status: Never a Smoker 2nd Hand Smoke Exposure: No Physical Abuse Screen: No Sexual Abuse: No Recent Foreign Travel: No Contact w/other who traveled: No Recent Hopitalizations: No Recent Infectious Disease Expo: No Immunizations Up To Date Tetanus Booster (TDap): Unknown Date of Influenza Vaccine: Jan 11, 2018 Seasonal Allergies Seasonal Allergies: No Surgeries Yes (ROTATOR CUFF REPAIR, gastric sleeve) Respiratory No Cardiovascular Yes Hypertension Neurological No Reproductive System : No Hx Reproductive Disorders: No Genitourinary No Gastrointestinal Yes Gastroesophageal Reflux Musculoskeletal No Endocrine History of Endocrine Disorders: Yes Endocrine Disorders: Diabetes, Insulin dep HEENT History of HEENT Disorders: No Cancer Yes Melanoma Psychosocial History of Psychiatric Problem: No Integumentary History of Skin or Integumenta: No Blood Transfusions History of Blood Disorders: No Reviewed Nursing Assessment Reviewed/Agree w Nursing PMH: Yes Family Medical History Significant Family History: Hypertension Review of Systems Constitutional: No chills, No fever, No malaise; weakness EENTM: No hoarseness Respiratory: No cough, No dyspnea on exertion, No short of breath Cardiovascular: No chest pain, No palpitations Gastrointestinal: No abdominal pain, No constipation, No loss of appetite Genitourinary: No decreased output, No frequency, No incontinence : No Musculoskeletal: No back pain; muscle weakness (ON LEFT LEG/ARM) Skin: No dryness Psychiatric/Neurological: Anxiety, Depressed, Weakness (LEFT LEG/ARM) All Other Systems Reviewed Negative Unless Noted: Yes Physical Exam Vital Signs Vital Signs - First Documented 03/09/18 06:20 Temp 97.7 Pulse 91 Resp 18 B/P (MAP) 215/115 (148) Pulse Ox 98 O2 Delivery Room Air Capillary Refill : Less Than 3 Seconds Height, Weight, BMI Height: 5'6.00" Weight: 209lbs. 0.0oz. 94.571657vd; 33.7 BMI Method:Stated General Appearance: No Apparent Distress, WD/WN HEENT: PERRL/EOMI, TMs Normal, Normal ENT Inspection, Pharynx Normal Neck: Full Range of Motion, Normal Inspection, Non Tender, Supple Respiratory: Chest Non Tender, Lungs Clear, Normal Breath Sounds, No Accessory Muscle Use, No Respiratory Distress Cardiovascular: Regular Rate, Rhythm, No Edema, No JVD, No Murmur, Normal Peripheral Pulses Gastrointestinal: Normal Bowel Sounds, No Pulsatile Mass, Non Tender, Soft Rectal: Deferred Extremity: Normal Capillary Refill, Normal Inspection, Non Tender, No Calf Tenderness, No Pedal Edema Neurologic/Psychiatric: Alert, Oriented x3, Normal Mood/Affect, penology professor II-XII Norm as Tested; No Facial Droop; Motor Weakness (LEFT ARM AT SHOULDER STRENGTH DECREASED AT 3/5 AND COUGAR HUNTER SLIGHTLY DECREASED AT 4/5) Reflexes: 2+ Bicep (R), 2+ Bicep (L), 2+ Knee (R), 2+ Knee (L) Skin: Normal Color, Warm/Dry Lymphatic: No Adenopathy Assessment/Plan Assessment and Plan RIGHT VERDUGO RADIATA INFARCT HYPERTENSIVE EMERGENCY DIABETES MELLITUS - UNCONTROLLED HYPERLIPIDEMIA LEFT SIDED WEAKNESS DEPRESSION RIGHT VERDUGO RADIATA INFARCT -ADMITTED TO THE HOSPITAL - INITIAL CT SCAN OF BRAIN NEGATIVE - CT ANGIO NEGATIVE WELL, MRI SHOWED ACUTE INFARCT - CONTINUE WITH PLANS FOR ASPIRIN AND PLAVIX, MORE AGGRESSIVE BLOOD PRESSURE CONTROL ONCE THIS EPISODE IS STABILIZED AND WILL START PHYSICAL THERAPY FOR STRENGTHENING OF LEFT UPPER AND LOWER EXTREMITY. HYPERTENSIVE EMERGENCY - DEFER TO DR. BLACKBURN- HE HAS STARTED PENNIE-INHIBITOR AND BETA JARED - CONTINUE TO CLOSELY MONITOR BLOOD PRESSURES. DIABETES MELLITUS - UNCONTROLLED - RESTART XULTOPHY - STOP EATING EXCESSIVE CARBOHYDRATES, ADVISED MORE STRICT DIETARY CONTROL, ADVISED PT TO GET RID OF CANDY FROM HER HOUSE. HYPERLIPIDEMIA - RESTART STATIN THERAPY - CHECK CAROTID US AND ECHO DEPRESSION - AVOID SSRI AT THIS TIME, MONITOR SYMPTOMS, START COUNSELING DVT PROPHYLAXIS WITH LOVENOX GI PROPHYLAXIS WITH PEPCID Admission Diagnosis RIGHT VERDUGO RADIATA INFARCT HYPERTENSIVE EMERGENCY DIABETES MELLITUS - UNCONTROLLED HYPERLIPIDEMIA LEFT SIDED WEAKNESS DEPRESSION Admission Status: Inpatient Order (span 2 midnights) Reason for Inpatient Admission: PT HAD AN ACUTE RIGHT VERDUGO RADIATA INFARCT AND HYPERTENSION UNCONTROLLED - WILL REQUIRE MORE THAN TWO MIDNIGHTS FOR STABILIZATION Clinical Quality Measures DVT/VTE Risk/Contraindication: Risk Factor Score Per Nursin RFS Level Per Nursing on Admit: 4+=Very High Stroke: Date of last known well: Mar 09, 2018 ELEONORA CURRAN MD Mar 09, 2018 18:59
[2018-03-09] MEDS ORDERED: PATIENT MAY USE OWN MED,SINGLE MED PO SCH (19:30)
[2018-03-09 20:20] VITALS: BP 167/84
[2018-03-09] MEDS: FAMOTIDINE 20 MG (PEPCID) TABLET PO SCH (20:29)
[2018-03-09] MEDS: ENOXAPARIN 40 MG/0.4 ML (LOVENOX) SYR SC SCH (20:29)
[2018-03-09] MEDS: ATORVASTATIN 80 MG (LIPITOR) TABLET PO SCH (20:30)
[2018-03-09] MEDS ORDERED: ATORVASTATIN 20 MG (LIPITOR) TABLET PO SCH (21:00)
[2018-03-09] MEDS ORDERED: NON-FORMULARY MEDICATION 1 EA EA (Lifitegrast (Xiidra) 1 DROP) OU SCH (21:00)
[2018-03-10 00:09] VITALS: BP 150/83
[2018-03-10 04:00] VITALS: BP 157/84
[2018-03-10 04:53] LABS: BASOPHILS % (AUTO) 0 % (0-10); EOSINOPHILS # (AUTO) 0.1 10^3/uL (0.0-0.3); EOSINOPHILS % (AUTO) 1 % (0-10); HEMATOCRIT 42 % (35-52); HEMOGLOBIN 13.8 G/DL (11.5-16.0); LYMPHOCYTES # (AUTO) 1.6 X 10^3 (1.0-4.0); LYMPHOCYTES % (AUTO) 18 % (12-44); MEAN CORPUSCULAR HEMOGLOBIN 29 PG (25-34); MEAN CORPUSCULAR HGB CONC 33 G/DL (32-36); MEAN CORPUSCULAR VOLUME 86 FL (80-99); MEAN PLATELET VOLUME 10.9 FL (7.4-10.4); MONOCYTES # (AUTO) 0.5 X 10^3 (0.0-1.0); MONOCYTES % (AUTO) 5 % (0-12); NEUTROPHILS # (AUTO) 6.6 X 10^3 (1.8-7.8); NEUTROPHILS % (AUTO) 76 % (42-75); PLATELET COUNT 306 10^3/uL (130-400); RED BLOOD COUNT 4.85 10^6/uL (4.35-5.85); RED CELL DISTRIBUTION WIDTH 13.5 % (10.0-14.5); WHITE BLOOD COUNT 8.7 10^3/uL (4.3-11.0)
[2018-03-10 05:24] LABS: ALANINE AMINOTRANSFERASE 14 U/L (0-55); ALBUMIN 3.5 GM/DL (3.2-4.5); ALKALINE PHOSPHATASE 125 U/L (40-136); BILIRUBIN,TOTAL 0.6 MG/DL (0.1-1.0); BUN/CREATININE RATIO 12; CALCIUM 8.9 MG/DL (8.5-10.1); CARBON DIOXIDE 26 MMOL/L (21-32); CHLORIDE 106 MMOL/L (98-107); CHOLESTEROL 187 MG/DL (< 200); CREATININE SERUM 0.77 MG/DL (0.60-1.30); GFR ESTIMATED > 60; GLUCOSE 185 MG/DL (70-105); HDL CHOLESTEROL 42 MG/DL (40-60); POTASSIUM 3.2 MMOL/L (3.6-5.0); SODIUM 143 MMOL/L (135-145); TOTAL PROTEIN 6.2 GM/DL (6.4-8.2); TRIGLYCERIDES 131 MG/DL (<150); VLDL CHOLESTEROL 26 MG/DL (5-40)
[2018-03-10] MEDS: inSUlin ASPART (NovoLOG) 1 UNIT/0.01 ML (CHARGE PER UNIT) SC SCH ×4 (06:26→20:30)
[2018-03-10] MEDS: KCL 10 MEQ TAB (MICRO K) PO SCH (06:26)
[2018-03-10] MEDS: LEVOTHYROXINE 88 MCG (LEVOTHORID) TAB PO SCH (06:26)
[2018-03-10 08:00] VITALS: BP 180/86
--- NOTE | 2018-03-10 08:35 | Progress Note ---
Subjective Date Seen by a Provider: Mar 10, 2018 Time Seen by a Provider: 08:30 Subjective/Events-last exam PT STATES THAT SHE IS FEELING BETTER, BUT TIRED. SHE REPORTS THAT SHE SLEPT WELL LAST NIGHT. SHE REPORTS CHRONIC INTERMITTENT NAUSEA, NO EMESIS, NO CHEST PAIN, NO SHORTNESS OF BREATH, NO DIZZINESS. SHE STILL FEELS WEAK, BUT BETTER. Review of Systems General: Fatigue HEENT: No Head Aches Pulmonary: No Dyspnea, No Cough Cardiovascular: No: Chest Pain, Palpitations Gastrointestinal: No: Nausea, Abdominal Pain Genitourinary: No Dysuria Musculoskeletal: No: arm pain, leg pain Neurological: Weakness; No: Confusion Objective Exam Last Set of Vital Signs Vital Signs Date Time Temp Pulse Resp B/P (MAP) Pulse Ox O2 Delivery O2 Flow Rate FiO2 03/10/18 04:00 98.9 73 18 157/84 (108) 97 Room Air Capillary Refill : Less Than 3 Seconds I&O Intake and Output 03/10/18 00:00 Intake Total 1505 ml Balance 1505 ml Intake Oral 505 ml IV Total 1000 ml # Voids 3 Daily Weight Change No General: Alert, Oriented X3, Cooperative, No Acute Distress HEENT: Atraumatic, PERRLA Neck: Supple Lungs: Clear to Auscultation Heart: Regular Rate Abdomen: Normal Bowel Sounds, Soft, No Tenderness Extremities: No Clubbing Skin: No Rashes, No Breakdown Neuro: Cranial Nerves 3-12 NL Psych/Mental Status: Mental Status NL, Mood NL Results Lab Laboratory Tests 03/09/18 14:13: Glucometer 172H 03/09/18 20:22: Glucometer 225H 03/10/18 04:30: White Blood Count 8.7, Red Blood Count 4.85, Hemoglobin 13.8, Hematocrit 42, Mean Corpuscular Volume 86, Mean Corpuscular Hemoglobin 29, Mean Corpuscular Hemoglobin Concent 33, Red Cell Distribution Width 13.5, Platelet Count 306, Mean Platelet Volume 10.9H, Neutrophils (%) (Auto) 76H, Lymphocytes (%) (Auto) 18, Monocytes (%) (Auto) 5, Eosinophils (%) (Auto) 1, Basophils (%) (Auto) 0, Neutrophils # (Auto) 6.6, Lymphocytes # (Auto) 1.6, Monocytes # (Auto) 0.5, Eosinophils # (Auto) 0.1, Basophils # (Auto) 0.0, Sodium Level 143, Potassium Level 3.2L, Chloride Level 106, Carbon Dioxide Level 26, Anion Gap 11, Blood Urea Nitrogen 9, Creatinine 0.77, Estimat Glomerular Filtration Rate > 60, BUN/ Creatinine Ratio 12, Glucose Level 185H, Calcium Level 8.9, Corrected Calcium 9.3, Total Bilirubin 0.6, Aspartate Amino Transf (AST/SGOT) 13, Alanine Aminotransferase (ALT/SGPT) 14, Alkaline Phosphatase 125, Total Protein 6.2L, Albumin 3.5, Triglycerides Level 131, Cholesterol Level 187, LDL Cholesterol Direct 129, VLDL Cholesterol 26, HDL Cholesterol 42 03/10/18 05:59: Glucometer 181H Assessment/Plan Assessment/Plan Assess & Plan/Chief Complaint RIGHT VERDUGO RADIATA INFARCT HYPERTENSIVE EMERGENCY DIABETES MELLITUS - UNCONTROLLED HYPERLIPIDEMIA LEFT SIDED WEAKNESS DEPRESSION RIGHT VERDUGO RADIATA INFARCT -ADMITTED TO THE HOSPITAL - INITIAL CT SCAN OF BRAIN NEGATIVE - CT ANGIO NEGATIVE WELL, MRI SHOWED ACUTE INFARCT - CONTINUE WITH PLANS FOR ASPIRIN AND PLAVIX, MORE AGGRESSIVE BLOOD PRESSURE CONTROL ONCE THIS EPISODE IS STABILIZED AND WILL START PHYSICAL THERAPY FOR STRENGTHENING OF LEFT UPPER AND LOWER EXTREMITY. HYPERTENSIVE EMERGENCY - DEFER TO DR. BLACKBURN- HE HAS STARTED PENNIE-INHIBITOR AND BETA JARED - CONTINUE TO CLOSELY MONITOR BLOOD PRESSURES. DIABETES MELLITUS - UNCONTROLLED - RESTART XULTOPHY - TO BRING IN FROM HOME, HGBA1C IS 11!! - STOP EATING EXCESSIVE CARBOHYDRATES, ADVISED MORE STRICT DIETARY CONTROL, ADVISED PT TO GET RID OF CANDY FROM HER HOUSE. HYPERLIPIDEMIA - RESTARTED STATIN THERAPY BUT AT HIGHER DOSE - CAROTID COMPLETED YESTERDAY - WAITING ON REPORT AND ECHO DONE TODAY DEPRESSION - AVOID SSRI AT THIS TIME, MONITOR SYMPTOMS, START COUNSELING DVT PROPHYLAXIS WITH LOVENOX GI PROPHYLAXIS WITH PEPCID Clinical Quality Measures Admission Status Admission Dx RIGHT VERDUGO RADIATA INFARCT HYPERTENSIVE EMERGENCY DIABETES MELLITUS - UNCONTROLLED HYPERLIPIDEMIA LEFT SIDED WEAKNESS DEPRESSION DVT/VTE Risk/Contraindication: Risk Factor Score Per Nursin RFS Level Per Nursing on Admit: 4+=Very High Stroke: Date of last known well: Mar 09, 2018 ASHLEY MARTINEZ MD Mar 10, 2018 08:35
[2018-03-10] MEDS ORDERED: KCL 20 MEQ TAB (K-DUR) PO NR (08:45)
--- NOTE | 2018-03-10 08:52 | Cardiology Progress Note ---
Subjective Date Seen by Provider: Mar 10, 2018 Time Seen by Provider: 08:30 Subjective/Events-last exam Patient is sitting up in bed, continues to complain of left sided weakness. Denies any CP or dyspnea. Objective-Cardiology Exam Last Set of Vital Signs Vital Signs 03/10/18 04:00 Temp 98.9 Pulse 73 Resp 18 B/P (MAP) 157/84 (108) Pulse Ox 97 O2 Delivery Room Air Capillary Refill : Less Than 3 Seconds I&O Intake and Output 03/10/18 00:00 Intake Total 1505 ml Balance 1505 ml Intake Oral 505 ml IV Total 1000 ml # Voids 3 Daily Weight Change No General: Alert, Oriented X3, Cooperative HEENT: Atraumatic, PERRLA Neck: Supple, No JVD, No Thyromegaly Lungs: Clear to Auscultation, Normal Air Movement Heart: Regular Rate, Normal S1, Normal S2, No Murmurs Abdomen: Normal Bowel Sounds, Soft, No Tenderness, No Hepatosplenomegaly, No Masses Extremities: No Clubbing, No Cyanosis, No Edema, Normal Pulses, No Tenderness/ Swelling Skin: No Rashes, No Breakdown, No Significant Lesion Neuro: Normal Speech, Other (left sided weakness) Psych/Mental Status: Mental Status NL, Mood NL Results Lab Laboratory Tests 03/10/18 04:30 A/P-Cardiology Admission Diagnosis CVA Palpitation Hypertension Hyperlipidemia Assessment/Plan Subacute CVA, did not qualify for TPA, started on aspirin and Plavix. Right sided diagnosed by MRI. Continue on aspirin and Plavix. Planning to evaluate echocardiogram, awaiting carotid ultrasound results. Discussed possibility of LINQ implantation for further monitoring. History of palpitation, questionable paroxysmal atrial fibrillation, maintained on telemetry. We'll continue monitoring. Hypertension, mildly elevated. Continue to monitor BP/HR. Hyperlipidemia - started on Lipitor 80 mg and monitor tolerance History of depression Diabetes mellitus,poorly controlled. Followed and managed by primary care physician Hypothyroidism followed and managed by primary care physician Clinical Quality Measures DVT/VTE Risk/Contraindication: Risk Factor Score Per Nursin RFS Level Per Nursing on Admit: 4+=Very High Stroke: Date of last known well: Mar 09, 2018 STEPHANIE CRUZ Mar 10, 2018 08:52
[2018-03-10] MEDS ORDERED: ASPIRIN E.C. 81 MG (ECOTRIN) TAB PO SCH (09:00)
[2018-03-10] MEDS: ASPIRIN E.C. 81 MG (ECOTRIN) TAB PO SCH (09:07)
[2018-03-10] MEDS: CLOPIDOGREL 75 MG (PLAVIX) TABLET PO SCH (09:07)
[2018-03-10] MEDS: HYDROCHLOROTHIAZIDE 25 MG (HCTZ) TAB PO SCH (09:07)
[2018-03-10] MEDS: lisINopril 10 MG (PRINIVIL) TABLET PO SCH (09:07)
[2018-03-10] MEDS: meTOproloL SUCCINATE 50 MG (TOPROL XL) TAB PO SCH (09:07)
[2018-03-10] MEDS: FAMOTIDINE 20 MG (PEPCID) TABLET PO SCH ×2 (09:07→20:30)
--- NOTE | 2018-03-10 09:22 | Cardiology Progress Note ---
Subjective Date Seen by Provider: Mar 10, 2018 Time Seen by Provider: 09:20 Subjective/Events-last exam Patient is laying down in bed, still having weakness on the left side. Denied any chest pain. No palpitation Review of Systems General: No Chills, No Night Sweats, No Fatigue, No Malaise, No Appetite, No Other HEENT: No Head Aches, No Visual Changes, No Eye Pain, No Ear Pain, No Dysphasia , No Sinus Congestion, No Post Nasal Drip, No Sore Throat, No Other Pulmonary: No Dyspnea, No Cough, No Pleuritic Chest Pain, No Other Cardiovascular: No: Chest Pain, Palpitations, Orthopnea, Paroxysmal Noc. Dyspnea, Edema, Lt Headedness, Other Objective-Cardiology Exam Last Set of Vital Signs Vital Signs 03/10/18 03/10/18 04:00 07:00 Temp 98.9 Pulse 73 Resp 18 B/P (MAP) 157/84 (108) Pulse Ox 97 O2 Delivery Room Air Capillary Refill : Less Than 3 Seconds I&O Intake and Output 03/10/18 00:00 Intake Total 1505 ml Balance 1505 ml Intake Oral 505 ml IV Total 1000 ml # Voids 3 Daily Weight Change No General: Alert, Oriented X3, Cooperative HEENT: Atraumatic, PERRLA Neck: Supple, No JVD, No Thyromegaly Lungs: Clear to Auscultation, Normal Air Movement Heart: Regular Rate, Normal S1, Normal S2, No Murmurs Abdomen: Normal Bowel Sounds, Soft, No Tenderness, No Hepatosplenomegaly, No Masses Extremities: No Clubbing, No Cyanosis, No Edema, Normal Pulses, No Tenderness/ Swelling Skin: No Rashes, No Breakdown, No Significant Lesion Neuro: Normal Speech, Other (left sided weakness) Psych/Mental Status: Mental Status NL, Mood NL Results Lab Laboratory Tests 03/10/18 04:30 A/P-Cardiology Admission Diagnosis CVA Palpitation Hypertension Hyperlipidemia Assessment/Plan Subacute CVA, did not qualify for TPA, started on aspirin and Plavix. Right [place] Radiata by MRI. Continue on aspirin and Plavix. Planning to evaluate echocardiogram, awaiting carotid ultrasound results. Discussed possibility of LINQ implantation for further monitoring. History of palpitation, questionable paroxysmal atrial fibrillation, maintained on telemetry. Hypertension, mildly elevated. Continue to monitor BP/HR, permissive hypertension due to ischemic stroke Hyperlipidemia, LDL 129 - started on Lipitor 80 mg and monitor tolerance History of depression Diabetes mellitus,poorly controlled. Followed and managed by primary care physician Hypothyroidism followed and managed by primary care physician Clinical Quality Measures DVT/VTE Risk/Contraindication: Risk Factor Score Per Nursin RFS Level Per Nursing on Admit: 4+=Very High Stroke: Date of last known well: Mar 09, 2018 ANEUDY BLACKBURN MD Mar 10, 2018 09:22
--- NOTE | 2018-03-10 10:55 | Diagnostic Imaging Report ---
PROCEDURE: US carotid duplex, bilateral. TECHNIQUE: Multiple real-time grayscale images were obtained over the carotid arteries in various projections, bilaterally. Additional duplex Doppler and color Doppler images were also obtained. INDICATION: CVA, left-sided weakness. FINDINGS: There are no prior carotid Doppler examinations available for comparison. The CTA head and neck exam done earlier today failed to show any sign of a hemodynamically significant stenosis of either carotid system. On this exam, there is mild soft plaque formation in both carotid systems. Flow velocities fail to show any sign of a hemodynamically significant stenosis of the common or internal carotid arteries. Both vertebral arteries are noted there is antegrade flow bilaterally. IMPRESSION: 1. There is mild atherosclerotic disease involving both carotid systems. There is no evidence for a hemodynamically significant stenosis of the common or internal carotid arteries, however. Parameters based on the consensus panel Crowell-Scale and Doppler ultrasound criteria published February 2003, Radiology, Volume 229. DOPPLER (peak systolic velocity M/S Right Left CCA 0.762 0.575 ICA Proximal 0.768 0.604 ICA Mid 1.10 0.844 ICA Distal 1.39 1.04 RATIO 1.8 1.8 ECA 1.01 0.985 VERT 0.563 0.709 Dictated by: Dictated on workstation # [id number]
--- NOTE | 2018-03-10 11:55 | Physical Therapy Evaluation ---
PT Evaluation-General Medical Diagnosis Admission Date Mar 09, 2018 at 09:25 Medical Diagnosis: CVA Onset Date: Mar 09, 2018 Therapy Diagnosis Therapy Diagnosis: left hemiparesis, balance impairment, weakness, mobility impairment Height/Weight Height (Feet): 5 Height (Inches): 6.00 Weight (Pounds): 209 Weight (Ounces): 0.0 Precautions Precautions/Isolations: Fall Prevention, Standard Precautions Weight Bear Status Right Lower Extremity: Right Full Weight Bearing Left Lower Extremity: Left Full Weight Bearing Referral Physician: Eleonora Curran MD Reason for Referral: Evaluation/Treatment Medical History Pertinent Medical History: DM, GERD, HTN Current History Patient had CVA and presents L hemiparesis. Reviewed History: Yes Social History Home: Single Level Entry Into Home: Stairs Without Railing PT Steps Into Home: 10 PT Steps Inside Home: 0 Prior/Core FIM Prior Level of Function Functional [place] Measure 0=Not Assessed/NA 4=Minimal Assistance 1=Total Assistance 5=Supervision or Setup 2=Maximal Assistance 6=Modified [place] 3=Moderate Assistance 7=Complete IndependenceIRFPAI Quality Coding Scale 6 Independent with activity with or without an assistive device 5 Patient requires set up or clean up by helper. Patient completes activity by themselves 4 Supervision or touching assist (CGA). [place] provide cues , steadying assist 3 The helper provides less than half the effort to complete the activity 2 The helper provides more than half the effort to complete the activity 1 Dependent. The helper does all the effort to complete an activity 7 Patient refused to complete or attempt activity 9 The patient did not perform the activity before the current illness or injury 88 Not attempted due to Medical conditions or safety concerns Bed Mobility: 7 Transfers (B,C,W/C) (FIM): 7 Gait: 7 Stairs: 7 PT Evaluation-Current Subjective Pt awake in room visiting with mother. Patient agreed to evaluation by PT. Pain Numeric Pain Scale: 0-No Pain Location: No Pain Reported Objective Patient Orientation: Person, Confused, Normal For Age Attachments: IV ROM/Strength ROM Upper Extremities WNL ROM Lower Extremities WNL Strength Upper Extremities 4+/5 Strength Lower Extremities 4+/5 Neuromuscular (Tone, Coordination, Reflexes) Patients tone is normal, Coordination is impaired and patient currently exhibits L side neglect, Reflexes NT Sensory Vision: Wears Glasses Hearing: Functional Sensation Right Upper Extremit: Intact Sensation Left Upper Extremity: Impaired (Elbow and distal is impaired sensation) Sensation Right Lower Extremit: Intact Sensation Left Lower Extremity: Impaired (Ankle and distal is impaired) Transfers Functional [place] Measure 0=Not Assessed/NA 4=Minimal Assistance 1=Total Assistance 5=Supervision or Setup 2=Maximal Assistance 6=Modified [place] 3=Moderate Assistance 7=Complete [place] Transfers (B, C, W/C) (FIM): 4 Scootin Rollin Supine to/from Sit: 5 Sit to/from Stand: 4 Gait Mode of Locomotion: Walk Anticipated Mode of Locomotion: Walk Gait (FIM): 2 Distance (FIM): 0=736-89 ft Distance: 60' Gait Level of Assist: 4 Gait Persons Needed: 1 Gait Assistive Device: FWW Comments/Gait Description Patient needed cueing through out ambulation to be aware of her left side neglect Balance Sitting Static: Fair Sitting Dynamic: Fair Standing Static: Fair Standing Dynamic: Fair Assessment/Needs Patient was able to ambulate with a FWW for 60' requiring CGA. Pt does need cueing throughout ambulation due to her left side neglect and poor coordination throughout gait sequence. Patient is able to align herself vertical with verbal cues but will lose position once she is focused on something else. Pt has impaired sensation from elbow and distal to hand and impaired from ankle and distal. Patient is able to tell elbow, knee, ankle and toe position during proprioception testing but states that she has a tingling sensation when moving those joints. Her vision was good and was able to track back and forth with therapist. Patients peripheral vision was tested as well appeared to be functioning as normal. Rehab Potential: Fair PT Care Home Goals Color Tester Goals PT Care Home Goals Time Frame: Mar 17, 2018 Transfers (B,C,W/C) (FIM): 5 Gait (FIM): 5 Gait distance (FIM): 3=150 ft Distance: 150' Gait Level of Assist: 5 Gait Assistive Device: FWW PT Plan Problem List Problem List: Activity Tolerance, Functional Strength, Safety, Balance, Gait, Transfer, Bed Mobility, ROM Treatment/Plan Treatment Plan: Continue Plan of Care Treatment Plan: Bed Mobility, Education, Functional Activity [place], Functional Strength, Gait, Safety, Therapeutic Exercise, Transfers Treatment Duration: Mar 17, 2018 Frequency: 6 times per week Estimated Hrs Per Day: .25 hour per day Patient and/or Family Agrees t: Yes Safety Risks/Education Patient Education: Gait Training, Transfer Techniques, Correct Positioning, Disease Process, Safety Issues Teaching Recipient: Patient Teaching Methods: Demonstration, Discussion Response to Teaching: Verbalize Understanding, Reinforcement Needed Discharge Recommendations Plan Patient will perform bed mobility and transfer training, balance and endurance training, functional strengthening, stair training, gait training, and education , to improve functional mobility and independence at home. Therapy D/C Recommendations: Home w/ Family Support Time/GCodes Time In: 1115 Time Out: 1135 Total Billed Treatment Time: 20 Total Billed Treatment 1 Visit [facility] - 20' OZIEL MOODY PT Mar 10, 2018 11:55
[2018-03-10 12:00] VITALS: BP 187/93
[2018-03-10] MEDS: NS IV 1000 ML 1,000 ML IV SCH (12:30)
--- NOTE | 2018-03-10 14:49 | Occupational Therapy Eval ---
OT Evaluation-General/PLF Medical Diagnosis Admission Date Mar 09, 2018 at 09:25 Medical Diagnosis: CVA Onset Date: Mar 09, 2018 Therapy Diagnosis Therapy Diagnosis: weakness, decr self care, decr coord, decr funct mob, L neglect Height/Weight Height (Feet): 5 Height (Inches): 6.00 Weight (Pounds): 209 Weight (Ounces): 0.0 Precautions Precautions/Isolations: Fall Prevention, Standard Precautions Safety Interventions: None Referral Physician: Eleonora Curran MD Referral Reason: Evaluation/Treatment Medical History Pertinent Medical History: DM, GERD, HTN, Hypothroidism Additional Medical History R rotator cuff repair. Gastric sleeve. Melanoma. Depression. Current History Admitted with L leg numbness and L arm weakness. High blood pressure.Uncontrolled DM. Right jaime radiata stroke Reviewed History: Yes Social History Home: Single Level Current Living Status: Spouse Entry Into Home: Stairs Without Railing Steps Into Home: 0 Steps Inside Home: 0 Daughter and 2 grandchildren also live with her ADL-Prior Level of Function Functional [place] Measure 0=Not Assessed/NA 4=Minimal Assistance 1=Total Assistance 5=Supervision or Setup 2=Maximal Assistance 6=Modified [place] 3=Moderate Assistance 7=Complete [place] ADL PLOF Comments Pt reported that she has been able to manage all of her basic self care tasks prior to event and also care for her home. 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 No pain mentioned. Appearance Alert, cooperative, flat affect Mental Status/Objective Attachments: IV, Telemetry Current Glasses/Contacts: Yes Hand Dominance: Right Upper Extremity ROM Grossly WFL bilat. L lags behind R Upper Extremity Coordination L with decreased coordination. Upper Extremity Sensation Pt reported tingling elbow and distal Upper Extremity Strength R UE 4+/5 throughout. L UE 4-/5 throughout. Did not test R elbow due to IV PT eval shows L neglect ADL-Treatment ADL-Current Pt reported that she was able to feed herself breakfast but has help getting a drink with L hand. Has trouble toileting due to decreased balance and L neglect. PT reported L neglect affects her walking as well. Functional [place] Measure 0=Not Assessed/NA 4=Minimal Assistance 1=Total Assistance 5=Supervision or Setup 2=Maximal Assistance 6=Modified [place] 3=Moderate Assistance 7=Complete IndependenceIRFPAI Quality Coding Scale 6 Independent with activity with or without an assistive device 5 Patient requires set up or clean up by helper. Patient completes activity by themselves 4 Supervision or touching assist (CGA). [place] provide cues , steadying assist 3 The helper provides less than half the effort to complete the activity 2 The helper provides more than half the effort to complete the activity 1 Dependent. The helper does all the effort to complete an activity 7 Patient refused to complete or attempt activity 9 The patient did not perform the activity before the current illness or injury 88 Not attempted due to Medical conditions or safety concerns Education OT Patient Education: Purpose of tx/functional activities, Rehab process, Safety issues Teaching Recipient: Patient Teaching Methods: Discussion Response to Teaching: Verbalize Understanding OT Group Home Goals Group Home Goals Time Frame: Mar 26, 2018 Eating (FIM): 7 Grooming(FIM): 6 Bathing(FIM): 6 Upper Body Dressing(FIM): 6 Lower Body Dressing(FIM): 6 Toileting(FIM): 6 Toilet/Commode Transfer(FIM): 6 Shower Transfer(FIM): 6 Additional Goals: 1-Demonstrate ADL Tasks, 2-Verbalize Understanding, 3- ImproveStrength/Yocasta 1=Demonstrate adherence to instructed precautions during ADL tasks. 2=Patient will verbalize/demonstrate understanding of assistive devices/ modifications for ADL. 3=Patient will improve strength/tolerance for activity to enable patient to perform ADL's. OT Education/Plan Problem List/Assessment Assessment: Decreased UE Strength, Dependent Transfers, Impaired Coordination, Impaired Funct Balance, Impaired I ADL's, Impaired Self-Care Skills, Visual- Perceptual Deficit Pt would benefit from skilled OT to increase her independence in basic self care to allow her to return home safely and return to work Discharge Recommendations Plan/Recommendations: Continue POC Therapy D/C Recommendations: Acute Rehab Treatment Plan/Plan of Care Treatment,Training & Education: Yes Patient would benefit from OT for education, treatment and training to promote independence in ADL's, mobility, safety and/or upper extremity function for ADL' s. Plan of Care: ADL Retraining, Functional Mobility, UE Funct Exercise/Act, UE Neuromus Re-Ed/Coord, Visual/Perceptual Retrain Treatment Duration: Mar 26, 2018 Frequency: 5 times per week Estimated Hrs Per Day: 1 hour per day Agreement: Yes Rehab Potential: Fair Time/GCodes Start Time: 13:43 Stop Time: 13:55 Total Time Billed (hr/min): 12 Billed Treatment Time visit, 12 minutes evaluation high intensity YAW TAYLOR OT Mar 10, 2018 14:49
[2018-03-10 16:10] VITALS: BP 174/88
[2018-03-10 19:30] VITALS: BP 146/86
[2018-03-10] MEDS: ENOXAPARIN 40 MG/0.4 ML (LOVENOX) SYR SC SCH (20:30)
[2018-03-10] MEDS: ATORVASTATIN 80 MG (LIPITOR) TABLET PO SCH (20:30)
[2018-03-11 00:10] VITALS: BP 145/86
[2018-03-11] MEDS: NS IV 1000 ML 1,000 ML IV SCH (02:54)
[2018-03-11 04:12] VITALS: BP 145/87
[2018-03-11] MEDS: LEVOTHYROXINE 88 MCG (LEVOTHORID) TAB PO SCH (06:14)
[2018-03-11] MEDS: inSUlin ASPART (NovoLOG) 1 UNIT/0.01 ML (CHARGE PER UNIT) SC SCH ×4 (06:14→20:25)
[2018-03-11] MEDS: ACETAMINOPHEN 325 MG TABLET PO PRN (06:16)
[2018-03-11 08:00] VITALS: BP 158/94
[2018-03-11] MEDS ORDERED: LIDOCAINE 1% INJ 20 ML 20 ML VIAL ONE (08:09)
--- NOTE | 2018-03-11 08:34 | Cardiology Progress Note ---
Subjective Date Seen by Provider: Mar 11, 2018 Time Seen by Provider: 08:33 Subjective/Events-last exam Patient is in bed, still having weakness on the left side. No chest pain, telemetry review over the past 48 hours did not show any significant arrhythmia , carotid ultrasound was negative Review of Systems General: No Chills, No Night Sweats, No Fatigue, No Malaise, No Appetite, No Other HEENT: No Head Aches, No Visual Changes, No Eye Pain, No Ear Pain, No Dysphasia , No Sinus Congestion, No Post Nasal Drip, No Sore Throat, No Other Pulmonary: No Dyspnea, No Cough, No Pleuritic Chest Pain, No Other Cardiovascular: No: Chest Pain, Palpitations, Orthopnea, Paroxysmal Noc. Dyspnea, Edema, Lt Headedness, Other Objective-Cardiology Exam Last Set of Vital Signs Vital Signs 03/11/18 04:12 Temp 97.5 Pulse 70 Resp 16 B/P (MAP) 145/87 (106) Pulse Ox 97 O2 Delivery Room Air Capillary Refill : Less Than 3 Seconds I&O Intake and Output 03/11/18 00:00 Intake Total 2060 ml Balance 2060 ml Intake Oral 2060 ml # Voids 6 General: Alert, Oriented X3, Cooperative, No Acute Distress HEENT: Atraumatic, PERRLA Neck: Supple Lungs: Clear to Auscultation Heart: Regular Rate, Normal S1, Normal S2 Abdomen: Normal Bowel Sounds, Soft, No Tenderness Extremities: No Clubbing Skin: No Rashes, No Breakdown Neuro: Normal Speech, Cranial Nerves 3-12 NL, Other (Left-sided weakness) Psych/Mental Status: Mental Status NL, Mood NL Results Lab Laboratory Tests Test 03/10/18 09:43 03/10/18 15:24 03/10/18 19:33 03/10/18 20:24 Range/Units Glucometer 279 H 172 H 308 H 290 H 70-110 MG/DL Test 03/11/18 05:09 Range/Units Glucometer 181 H 70-110 MG/DL A/P-Cardiology Admission Diagnosis CVA Palpitation Hypertension Hyperlipidemia Assessment/Plan Subacute CVA, did not qualify for TPA, started on aspirin and Plavix. Right [place] Radiata by MRI. Continue on aspirin and Plavix. Echocardiogram was normal, telemetry did not show any arrhythmia, carotid ultrasound showed mild disease, cryptogenic stroke, planning to proceed with a reveal device implant for long-term monitoring History of palpitation, questionable paroxysmal atrial fibrillation, status post Reveal device implant Hypertension, better at this time. Continue to monitor Hyperlipidemia, LDL 129 - started on Lipitor 80 mg and monitor tolerance History of depression Diabetes mellitus,poorly controlled. Followed and managed by primary care physician Hypothyroidism followed and managed by primary care physician Clinical Quality Measures DVT/VTE Risk/Contraindication: Risk Factor Score Per Nursin RFS Level Per Nursing on Admit: 4+=Very High Stroke: Date of last known well: Mar 09, 2018 ANEUDY BLACKBURN MD Mar 11, 2018 08:34
--- NOTE | 2018-03-11 08:36 | Implantation of Loop Monitor ---
Implant of Loop Monitior IMPLANTATION OF LOOP MONITOR REPORT DATE OF PROCEDURE: 03/11/18 PREOP DIAGNOSIS: Cryptogenic stroke POSTOP DIAGNOSIS: Cryptogenic stroke PROCEDURE DETAILS: The patient is a 57 female with history of paroxysmal atrial fibrillation requiring long-term surveillance. Therefore implantable loop recorder was discussed and agreed with the patient. Informed consent was taken. All risks and complications were discussed at length. The patient was draped and prepped in the usual sterile fashion. Local anesthesia was lidocaine, which was given in the substernal area close to the 4th intercostal space. Loop monitor [employer] with serial number [id number] was implanted according to the protocol. Steri-Strips were placed at the end of the procedure. There were no complications and the patient tolerated the procedure well. The device was interrogated with a voltage of. ANESTHESIA: Local anesthesia with lidocaine. COMPLICATIONS: None CONTRAST/FLUOROSCOPY: None CONCLUSION: Successful loop recorder implantation with no complication ANEUDY BLACKBURN MD Mar 11, 2018 08:36
--- NOTE | 2018-03-11 09:40 | Progress Note ---
Objective Exam Last Set of Vital Signs Vital Signs Date Time Temp Pulse Resp B/P (MAP) Pulse Ox O2 Delivery O2 Flow Rate FiO2 03/11/18 08:00 97.8 77 18 158/94 (115) 96 Room Air Capillary Refill : Less Than 3 Seconds I&O Intake and Output 03/11/18 00:00 Intake Total 2060 ml Balance 2060 ml Intake Oral 2060 ml # Voids 6 General: Alert, Oriented X3, Cooperative, No Acute Distress HEENT: Atraumatic, PERRLA Neck: Supple Lungs: Clear to Auscultation Heart: Regular Rate, Normal S1, Normal S2 Abdomen: Normal Bowel Sounds, Soft, No Tenderness Extremities: No Clubbing Skin: No Rashes, No Breakdown Neuro: Normal Speech, Cranial Nerves 3-12 NL, Other (Left-sided weakness) Psych/Mental Status: Mental Status NL, Mood NL Results Lab Laboratory Tests 03/10/18 09:43: Glucometer 279H 03/10/18 15:24: Glucometer 172H 03/10/18 19:33: Glucometer 308H 03/10/18 20:24: Glucometer 290H 03/11/18 05:09: Glucometer 181H Assessment/Plan Assessment/Plan Assess & Plan/Chief Complaint RIGHT VERDUGO RADIATA INFARCT HYPERTENSIVE EMERGENCY DIABETES MELLITUS - UNCONTROLLED HYPERLIPIDEMIA LEFT SIDED WEAKNESS DEPRESSION RIGHT VERDUGO RADIATA INFARCT -ADMITTED TO THE HOSPITAL - INITIAL CT SCAN OF BRAIN NEGATIVE - CT ANGIO NEGATIVE WELL, MRI SHOWED ACUTE INFARCT - CONTINUE WITH PLANS FOR ASPIRIN AND PLAVIX, MORE AGGRESSIVE BLOOD PRESSURE CONTROL ONCE THIS EPISODE IS STABILIZED AND WILL START PHYSICAL THERAPY FOR STRENGTHENING OF LEFT UPPER AND LOWER EXTREMITY. HYPERTENSIVE EMERGENCY - DEFER TO DR. BLACKBURN- HE HAS STARTED PENNIE-INHIBITOR AND BETA JARED - CONTINUE TO CLOSELY MONITOR BLOOD PRESSURES. DIABETES MELLITUS - UNCONTROLLED - RESTART XULTOPHY - TO BRING IN FROM HOME, HGBA1C IS 11!! - STOP EATING EXCESSIVE CARBOHYDRATES, ADVISED MORE STRICT DIETARY CONTROL, ADVISED PT TO GET RID OF CANDY FROM HER HOUSE. HYPERLIPIDEMIA - RESTARTED STATIN THERAPY BUT AT HIGHER DOSE - CAROTID COMPLETED YESTERDAY - WAITING ON REPORT AND ECHO DONE TODAY DEPRESSION - AVOID SSRI AT THIS TIME, MONITOR SYMPTOMS, START COUNSELING DVT PROPHYLAXIS WITH LOVENOX GI PROPHYLAXIS WITH PEPCID Clinical Quality Measures Admission Status Admission Dx RIGHT VERDUGO RADIATA INFARCT HYPERTENSIVE EMERGENCY DIABETES MELLITUS - UNCONTROLLED HYPERLIPIDEMIA LEFT SIDED WEAKNESS DEPRESSION DVT/VTE Risk/Contraindication: Risk Factor Score Per Nursin RFS Level Per Nursing on Admit: 4+=Very High Stroke: Date of last known well: Mar 09, 2018 ASHLEY MARTINEZ MD Mar 11, 2018 09:40
--- NOTE | 2018-03-11 09:46 | Physical Therapy Daily Note ---
PT Daily Note-Current Subjective Pt awake in bed visiting with family when PT arrived. Pt agreed to get up and walk with therapy. Physician entered room before ambulation and asked to visit with patient. Pain Numeric Pain Scale: 0-No Pain Location: No Pain Reported Mental Status Attachments: IV Transfers Functional [place] Measure 0=Not Assessed/NA 4=Minimal Assistance 1=Total Assistance 5=Supervision or Setup 2=Maximal Assistance 6=Modified [place] 3=Moderate Assistance 7=Complete IndependenceIRFPAI Quality Coding Scale 6 Independent with activity with or without an assistive device 5 Patient requires set up or clean up by helper. Patient completes activity by themselves 4 Supervision or touching assist (CGA). [place] provide cues , steadying assist 3 The helper provides less than half the effort to complete the activity 2 The helper provides more than half the effort to complete the activity 1 Dependent. The helper does all the effort to complete an activity 7 Patient refused to complete or attempt activity 9 The patient did not perform the activity before the current illness or injury 88 Not attempted due to Medical conditions or safety concerns Transfers (B, C, W/C) (FIM): 4 Scootin Rollin Supine to/from Sit: 5 Sit to/from Stand: 4 Patient had LOB turning and attempting to make the bed requiring mod assistance to correct balance. Weight Bearing Right Lower Extremity: Right Full Weight Bearing Left Lower Extremity: Left Full Weight Bearing Gait Training Gait (FIM): 4 Distance (FIM): 3=150 ft Distance: 150 Gait Level of Assist: 4 Gait Persons Needed: 1 Gait Assistive Device: FWW Patient has poor left foot clearance during ambulation and has difficulty maintaining MAURICIO with fatigue. Patient did display with scissor gait sequence due to severely diminished proprioception/coordination Exercises Supine Ex: Heel Slides Supine Reps: 10 Seated Therapy Exercises: Long arc quads, Hip flexion, Hamstring Curls Seated Reps: 10 Assessment PT performed heel slides at bedside and seated marching when her Physician entered room. PT left for Physician to visit with patient before returning to work with patient. Patient was able to ambulate for 150' with FWW requiring minimal assist with noted assistance to correct balance and to weight shift to right to clear left foot. Patient has poor left foot clearance and has trouble swinging left leg forward due to fatigue. Pt MAURICIO becomes compromised with fatigue. Patient will be seen BID by PT to focus on endurance and strength. From a PT standpoint, patient would benefit from ARU to address functional mobility/balance/proprioception, etc. to ensure safe return to home and work environment. 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 Time Frame: Mar 17, 2018 Transfers (B,C,W/C) (FIM): 5 Gait (FIM): 5 Gait distance (FIM): 3=150 ft Distance: 150' Gait Level of Assist: 5 Gait Assistive Device: FWW PT Plan Problem List Problem List: Activity Tolerance, Functional Strength, Safety, Balance, Gait, Transfer, Bed Mobility, ROM Treatment/Plan Treatment Plan: Continue Plan of Care Treatment Plan: Bed Mobility, Education, Functional Activity Yocasta, Functional Strength, Gait, Safety, Therapeutic Exercise, Transfers Treatment Duration: Mar 17, 2018 Frequency: 11 times per week Estimated Hrs Per Day: .25 hour per day Patient and/or Family Agrees t: Yes Patient increased to twice a day Discharge Recommendations Therapy D/C Recommendations: Acute Rehab Time/GCodes Time In: 854 Time Out: 929 Total Billed Treatment Time: 22 Total Billed Treatment Time: 854-902, 915-929 1 Visit FA 8 min (854-902) 1 visit FA 14 min (915-929) SHOSHANA DOBBS PT Mar 11, 2018 09:45
[2018-03-11] MEDS: lisINopril 10 MG (PRINIVIL) TABLET PO SCH (10:03)
[2018-03-11] MEDS: CLOPIDOGREL 75 MG (PLAVIX) TABLET PO SCH (10:03)
[2018-03-11] MEDS: meTOproloL SUCCINATE 50 MG (TOPROL XL) TAB PO SCH (10:03)
[2018-03-11] MEDS: HYDROCHLOROTHIAZIDE 25 MG (HCTZ) TAB PO SCH (10:03)
[2018-03-11] MEDS: FAMOTIDINE 20 MG (PEPCID) TABLET PO SCH ×2 (10:03→20:24)
[2018-03-11] MEDS: ASPIRIN E.C. 81 MG (ECOTRIN) TAB PO SCH (10:03)
--- NOTE | 2018-03-11 10:58 | Occupational Ther Daily Note ---
OT Current Status-Daily Note Subjective No pain reported. Pt. states that she is tired. Appearance Pt. in bed. Agrees to work with therapy. Mental Status/Objective Patient Orientation: Person, Place, Time, Situation Functional [place] Measure 0=Not Assessed/NA 4=Minimal Assistance 1=Total Assistance 5=Supervision or Setup 2=Maximal Assistance 6=Modified [place] 3=Moderate Assistance 7=Complete [place] Attachments: IV ADL-Treatment Functional [place] Measure 0=Not Assessed/NA 4=Minimal Assistance 1=Total Assistance 5=Supervision or Setup 2=Maximal Assistance 6=Modified [place] 3=Moderate Assistance 7=Complete IndependenceIRFPAI Quality Coding Scale 6 Independent with activity with or without an assistive device 5 Patient requires set up or clean up by helper. Patient completes activity by themselves 4 Supervision or touching assist (CGA). [place] provide cues , steadying assist 3 The helper provides less than half the effort to complete the activity 2 The helper provides more than half the effort to complete the activity 1 Dependent. The helper does all the effort to complete an activity 7 Patient refused to complete or attempt activity 9 The patient did not perform the activity before the current illness or injury 88 Not attempted due to Medical conditions or safety concerns Grooming (FIM): 5 (SBA in stance at sink to brush teeth and hair. Noted that pt. "leans" up against wall on left side.) Oral Hygiene (QC): 4 Bathing (FIM): 4 (CGA in stance to wash esau area.) Shower/Bathe Self (QC): 4 Upper Body (FIM): 5 (SBA to don personal gown while seated.) Upper Body Dressing (QC): 4 Lower Body Dressing (FIM): 5 (SBA to doff/don slipper socks. Note that pt. has decreased coordination in left hand.) Lower Body Dressing (QC): 4 On/Off Footwear (QC): 4 Transfers (B, C, W/C) (FIM): 4 (See note.) Other Treatment Pt. states that she is tired but agrees to work with OT. Transfers supine-sit with SBA. Pt. able to participate in side-lying activity, bilateral sides, trunk flexion/extension exercises, and bilateral shoulder flexion exercises. Noted left UE "lags" behind right UE. Pt. also states that she knows that she leans to left when she is walking. Pt. has recently had chip for heart placed and states that she can't shower for two days. Agrees to spongebathe at sink and wash hair with assist from OT. Pt. transfers sit-stand with CGA and ambulates slowly with walker to sink in bathroom. Pt. able to hold sink and lean forward, approximately 5 minutes, while OT washes and conditions hair. Transfers to sink and completes spongebath seated, intermittently standing to wash all parts. Dresses and dons gown, underwear, and slipper socks. Ambulates back to bed with slow movements. Note ataxic like movement with gait and "slapping" pattern of left foot. Pt. states that she can feel everything on her left side, but that her left foot feels heavy. Transferred back to bed and all needs met. Education OT Patient Education: Correct positioning, Modified ADL techniques, Progress toward Goal/Update tx plan, Purpose of tx/functional activities, Reviewed precautions, Rehab process, Transfer techniques Teaching Recipient: Patient Teaching Methods: Demonstration, Discussion Response to Teaching: Verbalize Understanding, Return Demonstration OT Short Term Goals Short Term Goals 1=Demonstrate adherence to instructed precautions during ADL tasks. 2=Patient will verbalize/demonstrate understanding of assistive devices/ modifications for ADL. 3=Patient will improve strength/tolerance for activity to enable patient to perform ADL's. OT Clean Room Technician Goals Longterm Goals Time Frame: Mar 26, 2018 Eating (FIM): 7 Groomin Bathing(FIM): 6 Upper Body Dressing(FIM): 6 Lower Body Dressing(FIM): 6 Toileting(FIM): 6 Toilet/Commode Transfer(FIM): 6 Shower Transfer(FIM): 6 Additional Goals: 1-Demonstrate ADL Tasks, 2-Verbalize Understanding, 3- ImproveStrength/Yocasta 1=Demonstrate adherence to instructed precautions during ADL tasks. 2=Patient will verbalize/demonstrate understanding of assistive devices/ modifications for ADL. 3=Patient will improve strength/tolerance for activity to enable patient to perform ADL's. OT Education/Plan Problem List/Assessment Assessment: Decreased Activ Tolerance, Decreased UE Strength, Impaired Coordination, Impaired Funct Balance, Impaired I ADL's, Impaired Self-Care Skills, Restricted Funct UE ROM, Visual-Perceptual Deficit Pt would benefit from skilled OT to increase her independence in basic self care to allow her to return home safely and return to work Discharge Recommendations Plan/Recommendations: Continue POC Therapy D/C Recommendations: Acute Rehab Comment Equipment needs to be determined. Treatment Plan/Plan of Care Treatment,Training & Education: Yes Patient would benefit from OT for education, treatment and training to promote independence in ADL's, mobility, safety and/or upper extremity function for ADL' s. Plan of Care: ADL Retraining, Functional Mobility, UE Funct Exercise/Act, UE Neuromus Re-Ed/Coord, Visual/Perceptual Retrain Treatment Duration: Mar 26, 2018 Frequency: 5 times per week Estimated Hrs Per Day: .5 hour per day Agreement: Yes Rehab Potential: Good Time/GCodes Start Time: 09:40 Stop Time: 10:15 Total Time Billed (hr/min): 35 Billed Treatment Time 1, ADL x 2 This note should indicate an ACUTE daily note. KAROL SIMENTAL OT Mar 11, 2018 10:58
[2018-03-11 12:00] VITALS: BP 165/98
--- NOTE | 2018-03-11 13:46 | Physical Therapy Daily Note ---
PT Daily Note-Current Subjective Pt awake in bed visiting with her mother when PT arrived. Pt agreed to get up and work with PT. Pain Numeric Pain Scale: 0-No Pain Location: No Pain Reported Mental Status Patient Orientation: Normal For Age Attachments: IV Transfers Functional [place] Measure 0=Not Assessed/NA 4=Minimal Assistance 1=Total Assistance 5=Supervision or Setup 2=Maximal Assistance 6=Modified [place] 3=Moderate Assistance 7=Complete IndependenceIRFPAI Quality Coding Scale 6 Independent with activity with or without an assistive device 5 Patient requires set up or clean up by helper. Patient completes activity by themselves 4 Supervision or touching assist (CGA). [place] provide cues , steadying assist 3 The helper provides less than half the effort to complete the activity 2 The helper provides more than half the effort to complete the activity 1 Dependent. The helper does all the effort to complete an activity 7 Patient refused to complete or attempt activity 9 The patient did not perform the activity before the current illness or injury 88 Not attempted due to Medical conditions or safety concerns Transfers (B, C, W/C) (FIM): 4 Scootin Rollin Supine to/from Sit: 5 Sit to/from Stand: 4 Weight Bearing Right Lower Extremity: Right Full Weight Bearing Left Lower Extremity: Left Full Weight Bearing Gait Training Gait (FIM): 2 Distance (FIM): 9=669-02 ft Distance: 125' Gait Level of Assist: 4 Gait Persons Needed: 1 Gait Assistive Device: FWW Neuromuscular Pt performed narrow MAURICIO and tandem stance for time to work on her current balance deficits. Pt was CGA assist throughout duration and tries to use a wider MAURICIO for stability. Patient had difficulty maintaining a narrowed MAURICIO and tries to use a finger on the wall to give herself proprioceptive feedback. Assessment Pt was able to ambulate with a FWW for 125' requiring CGA. Patient performed balance exercises in hallway and used the handrail to support herself. She tried a narrow MAURICIO and tandem stance but had difficulty and tried use feedback from her fingers on the wall for support. Patient is still uncomfortable with a narrow MAURICIO and still loses her balance easily with these maneuvers. Pt will continue therapy to improve overall ambulation and balance for daily demands. PT Penitentiary Goals Penitentiary Goals PT [place] Worker Goals Time Frame: Mar 17, 2018 Transfers (B,C,W/C) (FIM): 5 Gait (FIM): 5 Gait distance (FIM): 3=150 ft Distance: 150' Gait Level of Assist: 5 Gait Assistive Device: FWW PT Plan Problem List Problem List: Activity Tolerance, Functional Strength, Safety, Balance, Gait, Transfer, Bed Mobility, ROM Treatment/Plan Treatment Plan: Continue Plan of Care Treatment Plan: Bed Mobility, Education, Functional Activity Yoc[place], Functional Strength, Gait, Safety, Therapeutic Exercise, Transfers Treatment Duration: Mar 17, 2018 Frequency: 11 times per week Estimated Hrs Per Day: .25 hour per day Patient and/or Family Agrees t: Yes Time/GCodes Time In: 1310 Time Out: 1324 Total Billed Treatment Time: 14 Total Billed Treatment 1 Visit FA - 14' SHOSHANA DOBBS PT Mar 11, 2018 13:46
[2018-03-11] MEDS: OXYBUTYNIN (DITROPAN) 5 MG TAB PO SCH ×2 (15:16→20:24)
[2018-03-11 16:00] VITALS: BP 168/88
[2018-03-11 19:30] VITALS: BP 162/90
[2018-03-11] MEDS: ATORVASTATIN 80 MG (LIPITOR) TABLET PO SCH (20:24)
[2018-03-11] MEDS: ENOXAPARIN 40 MG/0.4 ML (LOVENOX) SYR SC SCH (20:25)
[2018-03-12 00:23] VITALS: BP 166/96
[2018-03-12 04:01] VITALS: BP 138/74
[2018-03-12] MEDS: LEVOTHYROXINE 88 MCG (LEVOTHORID) TAB PO SCH (05:50)
[2018-03-12] MEDS: inSUlin ASPART (NovoLOG) 1 UNIT/0.01 ML (CHARGE PER UNIT) SC SCH ×2 (05:51→09:43)
[2018-03-12] MEDS: KCL 10 MEQ TAB (MICRO K) PO SCH (05:53)
--- NOTE | 2018-03-12 07:43 | Cardiology Progress Note ---
Subjective Date Seen by Provider: Mar 12, 2018 Time Seen by Provider: 07:42 Subjective/Events-last exam Patient is laying down in bed, had slightly more weakness yesterday after exercising. Denied any chest pain. Review of Systems General: No Chills, No Night Sweats, No Fatigue, No Malaise, No Appetite, No Other HEENT: No Head Aches, No Visual Changes, No Eye Pain, No Ear Pain, No Dysphasia , No Sinus Congestion, No Post Nasal Drip, No Sore Throat, No Other Pulmonary: No Dyspnea, No Cough, No Pleuritic Chest Pain, No Other Cardiovascular: No: Chest Pain, Palpitations, Orthopnea, Paroxysmal Noc. Dyspnea, Edema, Lt Headedness, Other Objective-Cardiology Exam Last Set of Vital Signs Vital Signs 03/12/18 00:23 Temp 98.1 Pulse 61 Resp 18 B/P (MAP) 166/96 (119) Pulse Ox 99 O2 Delivery Room Air Capillary Refill : Less Than 3 Seconds I&O Intake and Output 03/12/18 00:00 Intake Total 1380 ml Output Total 800 ml Balance 580 ml Intake Oral 1380 ml Output Urine Total 800 ml # Voids 4 # Bowel Movements 1 General: Alert, Oriented X3, Cooperative, No Acute Distress HEENT: Atraumatic, PERRLA Neck: Supple Lungs: Clear to Auscultation Heart: Regular Rate, Normal S1, Normal S2 Abdomen: Normal Bowel Sounds, Soft, No Tenderness Extremities: No Clubbing, No Cyanosis Skin: No Rashes, No Breakdown Neuro: Normal Speech, Cranial Nerves 3-12 NL, Other (Left-sided weakness) Psych/Mental Status: Mental Status NL, Mood NL Results Lab Laboratory Tests Test 03/11/18 09:45 03/11/18 15:00 03/11/18 20:15 03/12/18 05:36 Range/Units Glucometer 219 H 339 H 240 H 187 H 70-110 MG/DL A/P-Cardiology Admission Diagnosis CVA Palpitation Hypertension Hyperlipidemia Assessment/Plan Subacute CVA, did not qualify for TPA, started on aspirin and Plavix. Right [place] Radiata by MRI. Continue on aspirin and Plavix. Echocardiogram was normal, telemetry did not show any arrhythmia, carotid ultrasound showed mild disease, status post loop recorder implant. Will monitor as an outpatient History of palpitation, questionable paroxysmal atrial fibrillation, status post Reveal device implant Hypertension, better at this time. Continue to monitor Hyperlipidemia, LDL 129 - started on Lipitor 80 mg and monitor tolerance History of depression Diabetes mellitus,poorly controlled. Followed and managed by primary care physician Hypothyroidism followed and managed by primary care physician Clinical Quality Measures DVT/VTE Risk/Contraindication: Risk Factor Score Per Nursin RFS Level Per Nursing on Admit: 4+=Very High Stroke: Date of last known well: Mar 09, 2018 ANEUDY BLACKBURN MD Mar 12, 2018 07:43
[2018-03-12 08:00] VITALS: BP 152/98
[2018-03-12] MEDS: FAMOTIDINE 20 MG (PEPCID) TABLET PO SCH (08:00)
[2018-03-12] MEDS: meTOproloL SUCCINATE 50 MG (TOPROL XL) TAB PO SCH (08:00)
[2018-03-12] MEDS: lisINopril 10 MG (PRINIVIL) TABLET PO SCH (08:00)
[2018-03-12] MEDS: CLOPIDOGREL 75 MG (PLAVIX) TABLET PO SCH (08:00)
[2018-03-12] MEDS: ASPIRIN E.C. 81 MG (ECOTRIN) TAB PO SCH (08:00)
[2018-03-12] MEDS: HYDROCHLOROTHIAZIDE 25 MG (HCTZ) TAB PO SCH (08:00)
[2018-03-12] MEDS: OXYBUTYNIN (DITROPAN) 5 MG TAB PO SCH (08:00)
--- NOTE | 2018-03-12 08:39 | Discharge Summary ---
Diagnosis/Chief Complaint Date of Admission Mar 09, 2018 at 09:25 Date of Discharge Reason Hospital Visit PT IS A 57 Y/O FEMALE WHO IS KNOWN TO ME FROM CLINIC. SHE PRESENTED TO THE EMERGENCY DEPARTMENT THIS MORNING WITH COMPLAINT OF LEFT UPPER AND LOWER EXTREMITY WEAKNESS. APPARENTLY YESTERDAY AT 1500 SHE HAD WEAKNESS OF HER LEG AND THEN IT PROGRESSED OVER THE DAY- WHEN SHE WOKE UP IN THE MIDDLE OF THE NIGHT /EARLY THIS MORNING WITH WORSENING WEAKNESS OF HER LEFT LEG AND LEFT ARM. I SAW HER IN THE ER WITH HER AND SISTER IN ATTENDANCE. SHE REPORTS THAT SHE HAS NOT BEEN CHECKING HER BLOOD GLUCOSE AT HOME NOR HAS SHE BEEN FOLLOWING HER DIABETIC DIET - SHE HAS BEEN EATING THE "LEFT-OVER HALLOWEEN CANDY ". SHE ALSO ADMITS TO NOT TAKING HER BLOOD PRESSURES AT HOME. SHE STATES THAT AFTER SHE TOOK HER HIGHER DOSE OF PROZAC IS WHEN HER LEFT LEG STARTED TO GET WEAK. Discharge Summary Discharge Physical Examination Allergies: Coded Allergies: No Known Drug Allergies (Unverified , 05/12/14) Vitals & I&Os Vital Signs Date Time Temp Pulse Resp B/P (MAP) Pulse Ox O2 Delivery O2 Flow Rate FiO2 03/12/18 08:00 98.4 83 20 152/98 (116) 98 Room Air General Appearance: Alert, Oriented X3, Cooperative, No Acute Distress HEENT: Atraumatic, PERRLA Respiratory: Clear to Auscultation Cardiovascular: Regular Rate, Normal S1, Normal S2 Abdominal: Normal Bowel Sounds, Soft, No Tenderness Extremities: No Clubbing, No Cyanosis Skin: No Rashes, No Breakdown Neuro: Normal Speech, Cranial Nerves 3-12 NL, Other (Left-sided weakness) Psych/Mental Status: Mental Status NL, Mood NL Hospital Course Pending Labs Laboratory Tests 03/12/18 05:36: Glucometer 187 Discharge Instructions to patient/family Please see electronic discharge instructions given to patient. Discharge Medications Reviewed and agree with Discharge Medication list on patient's Discharge Instruction sheet Clinical Quality Measures DVT/VTE Risk/Contraindication: Risk Factor Score Per Nursin RFS Level Per Nursing on Admit: 4+=Very High Stroke: Date of last known well: Mar 09, 2018 ASHLEY MARTINEZ MD Mar 12, 2018 08:39
[2018-03-12] MEDS ORDERED: OXYB5TAB9 PO (08:44)
[2018-03-12] MEDS ORDERED: LISI10TA2 PO (08:44)
[2018-03-12] MEDS ORDERED: ATOR80TA76 PO (08:44)
[2018-03-12] MEDS ORDERED: CLOP75TA28 PO (08:44)
--- NOTE | 2018-03-12 08:45 | Discharge Inst-Complex ---
PDI Med Rec & Follow Up Appt. New Medications: Atorvastatin Calcium (Atorvastatin Calcium) 80 Mg Tablet 80 MG PO HS, #90 TAB 3 Refills Clopidogrel Bisulfate (Clopidogrel) 75 Mg Tablet 75 MG PO DAILY, #90 TAB 3 Refills Lisinopril (Lisinopril) 10 Mg Tablet 10 MG PO DAILY, #90 TAB 3 Refills Oxybutynin Chloride (Oxybutynin Chloride) 5 Mg Tablet 5 MG PO BID, #60 TAB 2 Refills Continued Medications: Aspirin (Aspirin EC) 81 Mg Tablet.dr 81 MG PO DAILY, TAB Hydrochlorothiazide (Hydrochlorothiazide) 25 Mg Tablet 25 MG PO DAILY, TAB Insulin Degludec/Liraglutide (Xultophy 100 Unit-3.6 mg/ml) 3 Ml Insuln.pen 22 UNITS SC DAILY, EA Levothyroxine Sodium (Levothyroxine Sodium) 88 Mcg Tablet 88 MCG PO DAILY, TAB Lifitegrast (Xiidra) 1 Each Droperette 1 DROP OU BID, EA Metoprolol Succinate (Metoprolol Succinate) 50 Mg Tab.er.24h 50 MG PO DAILY, TAB Potassium Chloride (Potassium Chloride) 10 Meq Tablet.er 10 MEQ PO MoWeFr, TAB Discontinued Medications: Atorvastatin Calcium (Atorvastatin Calcium) 20 Mg Tablet 20 MG PO DAILY, TAB Prescription: Transmitted to Pharmacy Activity, Diet and PDI Resume Normal Activity: Yes Discharge Diet: ADA Diet, Low Fat/Low Cholesterol Diet for 24 Hours: No Alcohol Drink 6-8 Glasses of Fluid/Day: Yes Driving Instructions: No Driving for 1 Week Symptoms to Reoprt to : Appetite Changes, Bleeding Excessive, Fever Over 101 Degrees F, Pain/Pressure in Chest, Dizziness/Fainting For Problems or Questions: Contact Your Physician, Go to Emergency Room ASHLEY MARTINEZ MD Mar 12, 2018 08:45
[2018-03-12 09:00] VITALS: BP 152/98
[2018-03-12] MEDS ORDERED: inSUlin ASPART (NovoLOG) 1 UNIT/0.01 ML (CHARGE PER UNIT) ONE (09:38)
[2018-03-12] MEDS ORDERED: ATOR20TA66 PO (13:20)
== END 2018-03-12 09:30 | DRG 41 ==
LOC: EDUNIT# 06:15 → ER 06:17 → 4TH 09:25
PROVIDERS: ADMIT Family Medicine; ATTEND Family Medicine
PROC: 0JH632Z Insertion of Monitoring Device into Chest Subcutaneous Tissue and Fascia, Percutaneous Approach (ICD-10-PCS; principal; 2018-03-11)
DX: I63.9 Cerebral infarction, unspecified (principal); G81.94 Hemiplegia, unspecified affecting left nondominant side; I16.1 Hypertensive emergency; R00.2 Palpitations; E11.65 Type 2 diabetes mellitus with hyperglycemia; F32.9 Major depressive disorder, single episode, unspecified; F41.9 Anxiety disorder, unspecified; E78.5 Hyperlipidemia, unspecified; K21.9 Gastro-esophageal reflux disease without esophagitis; I48.0 Paroxysmal atrial fibrillation; E03.9 Hypothyroidism, unspecified; Z79.4 Long term (current) use of insulin; Z91.19 Patient's noncompliance with other medical treatment and regimen; Z98.84 Bariatric surgery status; Z85.820 Personal history of malignant melanoma of skin
CPT/HCPCS: 33282; 36415; 70496; 70498; 70551; 71045; 80053; 80061; 81000; 82962; 83036; 84439; 84443; 84484; 85025; 85379; 85610; 85730; 93005; 93041; 93306; 93880; 96361; 96374

== ENCOUNTER 2018-03-12 09:01 | Inpatient (IN) | payer BC ==
[~2018-03-12] VITALS: Ht 167.6 cm; Wt 89.9 kg
[~2018-03-12 09:01] MED LIST changes: +ASPI-983 PO; +ATOR20TA66 PO; +ATOR80TA76 PO; +CLOP75TA28 PO; +DULO60CA58 PO; +ESTR1PAT83 TD; +FLUO40CA PO; +INSU3INS SC; +LEVO88TA54 PO; +LIFI1DRO OU; +LISI10TA2 PO; +METO-370 PO; +OXYB5TAB9 PO; +POTA10TA10 PO
--- NOTE | 2018-03-12 10:34 | Physical Therapy Evaluation ---
PT Evaluation-General Medical Diagnosis Admission Date Mar 12, 2018 at 09:38 Medical Diagnosis: CVA Onset Date: Mar 08, 2018 Therapy Diagnosis Therapy Diagnosis: generalized weakness Height/Weight Height (Feet): 5 Height (Inches): 6.00 Weight (Pounds): 209 Weight (Ounces): 0.0 Precautions Precautions/Isolations: Standard Precautions Weight Bear Status Right Lower Extremity: Right Full Weight Bearing Left Lower Extremity: Left Full Weight Bearing Referral Physician: David Reason for Referral: Evaluation/Treatment Medical History Pertinent Medical History: DM, GERD, HTN, Hypothroidism Reviewed History: Yes Social History Home: Single Level Current Living Status: Spouse Entry Into Home: Level Entry Prior/Core FIM Prior Level of Function Functional [place] Measure 0=Not Assessed/NA 4=Minimal Assistance 1=Total Assistance 5=Supervision or Setup 2=Maximal Assistance 6=Modified [place] 3=Moderate Assistance 7=Complete IndependenceIRFPAI Quality Coding Scale 6 Independent with activity with or without an assistive device 5 Patient requires set up or clean up by helper. Patient completes activity by themselves 4 Supervision or touching assist (CGA). [place] provide cues , steadying assist 3 The helper provides less than half the effort to complete the activity 2 The helper provides more than half the effort to complete the activity 1 Dependent. The helper does all the effort to complete an activity 7 Patient refused to complete or attempt activity 9 The patient did not perform the activity before the current illness or injury 88 Not attempted due to Medical conditions or safety concerns Bed Mobility: 7 Transfers (B,C,W/C) (FIM): 7 Gait: 7 Stairs: 7 PT Evaluation-Current Subjective Pt awake in room with when PT entered room. Pt agreed to come down inpatient rehab on second floor and have PT evaluation. Pain Numeric Pain Scale: 0-No Pain Location: No Pain Reported Objective Patient Orientation: Normal For Age Problem Solving: Good Attachments: IV ROM/Strength ROM Upper Extremities WNL ROM Lower Extremities WNL Strenght Lower Extremities 4+/5 BLE Integumentary/Posture Integumentary refer to nursing notes Bowel Incontinence: No Bladder Incontinence: No Posture WFL Neuromuscular (Tone, Coordination, Reflexes) noted ataxic left LE with functional mobility Sensory Vision: Wears Glasses Hearing: Functional Sensation Right Upper Extremit: Intact Sensation Left Upper Extremity: Impaired (impaired from elbow and distally) Sensation Right Lower Extremit: Intact Sensation Left Lower Extremity: Impaired (impaired from ankle and distally ) Transfers Functional [place] Measure 0=Not Assessed/NA 4=Minimal Assistance 1=Total Assistance 5=Supervision or Setup 2=Maximal Assistance 6=Modified [place] 3=Moderate Assistance 7=Complete IndependenceIRFPAI Quality Coding Scale 6 Independent with activity with or without an assistive device 5 Patient requires set up or clean up by helper. Patient completes activity by themselves 4 Supervision or touching assist (CGA). [place] provide cues , steadying assist 3 The helper provides less than half the effort to complete the activity 2 The helper provides more than half the effort to complete the activity 1 Dependent. The helper does all the effort to complete an activity 7 Patient refused to complete or attempt activity 9 The patient did not perform the activity before the current illness or injury 88 Not attempted due to Medical conditions or safety concerns Transfers (B, C, W/C) (FIM): 4 Scootin Rollin Roll Left to Right (QC): 5 Supine to/from Sit: 5 Sit to/from Stand: 4 Sit to Lying (QC): 5 Lying to Sitting/Side of Bed(Q: 5 Sit to Stand (QC): 4 Chair/Qpc-ms-Fpejs Xfer(QC): 4 Car Transfer (QC): 4 Gait Does the Patient Walk?: Yes Mode of Locomotion: Walk Anticipated Mode of Locomotion: Walk Gait (FIM): 4 Distance (FIM): 3=150 ft Walk 10 feet (QC): 4 Walk 50 ft with 2 Turns(QC): 4 Walk 150 ft (QC): 4 Walking 10ft/uneven surface-QC: 4 Distance: 200' Gait Level of Assist: 4 Gait Persons Needed: 1 Gait Assistive Device: FWW Comments/Gait Description Pt has poor toe clearance and coordination with left extremity when placing foot for initial heel contact. Wheelchair Training Does the Pt Use a Wheelchair?: No Stairs Stairs (FIM): 2 #of Steps: 4 Level of Assist: 4 1 Step (curb) (QC): 4 4 Steps (QC): 4 Assistive Device: Walker 12 Steps (QC): 88 Patient is CGA throughout stairs and uses a step to gait pattern when ascending and descending stairs. Balance Sitting Static: Good Sitting Dynamic: Good Standing Static: Fair Standing Dynamic: Fair Treatment PT practiced stairs with a FWW and required CGA. Patients endurance continues to improve and able to tolerate longer periods of exercise but still requires rest periods. Patient worked on tandem and narrow [place] in parallel bars requiring CGA. Patient then participated in reaching tasks that involved crossing midline and placing a cone in therapist hand. Patient required CGA throughout this exercise before finishing therapy on NuStep 12 min WL 3 Assessment/Needs Pt was able to ambulate 200' from 4th floor to elevators to inpatient rehab lobby on second floor. Patient utilized a FWW and required CGA throughout ambulation with short rest breaks. Patient performed car transfer and walked across uneven surface with CGA. PT was able to ascend and descend stairs in therapy gym with step to gait pattern requiring CGA. She then worked on narrow MAURICIO and tandem stance in parallel bars with initially getting her balance with the use of her hands before letting go of rails. Patient has difficulty with tandem stance and is CGA throughout both the previous exercises. Patient is able to reach across midline with opposite hand to grab cone but does take advantage of using an extra step when limit of stability has been reached. Patient finished therapy on NuStep on a workload of 3 to have an effective reciprocal pattern when performing this exercise. Patient will continue to benefit from neuromuscular reeducation, strengthening, ambulation and endurance exercises to improve overall function for daily demands. 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 PT Residential Goals Time Frame: Mar 26, 2018 Transfers (B,C,W/C) (FIM): 7 Sit to Lying (QC): 6 Lying-Sitting on Side/Bed(QC): 6 Sit to Stand (QC): 6 Rollin Roll Left to Right (QC): 6 Chair/Ilr-dz-Bvklw Xfer(QC): 6 Car Transfer (QC): 6 Does the Patient Walk: Yes Gait (FIM): 6 Gait distance (FIM): 3=150 ft Distance: 300' Walk 10 feet (QC): 6 Walk 10ft-Uneven Surface(QC): 6 Walk 50ft with 2 Turns (QC): 6 Walk 150 ft (QC): 6 Gait Level of Assist: 6 Gait Assistive Device: FWW Does the Pt use WC or Scooter?: No Stairs (FIM): 6 # of Steps: 12 1 Step (curb) (QC): 6 4 Steps (QC): 6 12 Steps (QC): 6 Stairs Level Of Assist: 6 Picking up an Object (QC): 6 PT Plan Problem List Problem List: Activity Tolerance, Functional Strength, Safety, Balance, Gait, Transfer, Bed Mobility, ROM Treatment/Plan Treatment Plan: Continue Plan of Care Treatment Plan: Bed Mobility, Education, Functional Activity [place], Functional Strength, Group Therapy, Gait, Safety, Therapeutic Exercise, Transfers Treatment Duration: Mar 26, 2018 Frequency: At least 5 of 7 days/Wk (IRF) Estimated Hrs Per Day: 1.5 hours per day Patient and/or Family Agrees t: Yes Time/GCodes Time In: 930 Time Out: 1030 Total Billed Treatment Time: 60 Total Billed Treatment 1 Visit EVModC - 25 min NM x2 - 35 min SHOSHANA DOBBS PT Mar 12, 2018 10:34
[2018-03-12] MEDS ORDERED: ACETAMINOPHEN 325 MG TABLET PO PRN (11:00)
[2018-03-12] MEDS ORDERED: NS IV 1000 ML 1,000 ML IV SCH (11:00)
[2018-03-12] MEDS: LIFITEGRAST EYE OU SCH ×3 (12:00→21:45)
[2018-03-12 12:38] VITALS: BP 148/86
[2018-03-12] MEDS: [UNRECOGNIZED DRUG - OTHER] SQ SCH (12:40)
[2018-03-12] MEDS: INSULIN DEGLUDEC SQ SCH (12:40)
[2018-03-12] MEDS: LIRAGLUTIDE SQ SCH (12:40)
--- NOTE | 2018-03-12 12:45 | Occupational Therapy Eval ---
OT Evaluation-General/PLF Medical Diagnosis Admission Date Mar 12, 2018 at 09:38 Medical Diagnosis: CVA Onset Date: Mar 08, 2018 Therapy Diagnosis Therapy Diagnosis: decreased self care skills Height/Weight Height (Feet): 5 Height (Inches): 6.00 Weight (Pounds): 209 Weight (Ounces): 0.0 Precautions Precautions/Isolations: Standard Precautions Referral Physician: David Medical History Pertinent Medical History: DM, GERD, HTN, Hypothroidism Additional Medical History gastric sleeve, melanoma, depression, right rotator cuff repair. Current History CVA Reviewed History: Yes Social History Home: Single Level Current Living Status: Spouse Entry Into Home: Level Entry ADL-Prior Level of Function Functional [place] Measure 0=Not Assessed/NA 4=Minimal Assistance 1=Total Assistance 5=Supervision or Setup 2=Maximal Assistance 6=Modified [place] 3=Moderate Assistance 7=Complete [place] ADL PLOF Comments Pt reports being independent with ADLs and mobility. No assistive devices. 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 No c/o pain. Mental Status/Objective Patient Orientation: Person, Place, Time, Situation Current Glasses/Contacts: Yes Hearing Aids: No Dentures/Partials: No Hand Dominance: Right Upper Extremity ROM Grossly functional Upper Extremity Coordination Decreased left UE Upper Extremity Sensation Intact to light touch, but pt reports tingling in left UE/LE Upper Extremity Strength Right UE grossly WFL Left UE: shoulder grossly 4-/5; elbow 4/5 ADL-Treatment ADL-Current Pt participated in UE assessment while seated. Sit to stand with CGA. Gait to restroom with FWW, slow pace. Transfer to toilet with CGA for balance. Pt able to complete toileting hygiene, but requires minimal assistance for balance during clothing management. Pt doffed LE clothing with min assist for balance. Doff shirt without assistance. Transfer to walk in shower with CGA. Pt completed seated bathing using hand held shower. Pt able to wash all areas, requires CGA for balance during standing to wash buttocks. Don bra with minimal assistance to fasten in the back. Donned pullover shirt with set up. Pt able to thread bilateral LE into pant legs. Stood with CGA for balance during pant hike. Pt has some difficulty pulling pants over left hip, but able to complete without assist. Don bilateral socks with CGA for balance. Pt combed hair with set up. Dried hair with set up. Pt sitting in chair with needs met and mother present after session. Functional [place] Measure 0=Not Assessed/NA 4=Minimal Assistance 1=Total Assistance 5=Supervision or Setup 2=Maximal Assistance 6=Modified [place] 3=Moderate Assistance 7=Complete IndependenceIRFPAI Quality Coding Scale 6 Independent with activity with or without an assistive device 5 Patient requires set up or clean up by helper. Patient completes activity by themselves 4 Supervision or touching assist (CGA). [place] provide cues , steadying assist 3 The helper provides less than half the effort to complete the activity 2 The helper provides more than half the effort to complete the activity 1 Dependent. The helper does all the effort to complete an activity 7 Patient refused to complete or attempt activity 9 The patient did not perform the activity before the current illness or injury 88 Not attempted due to Medical conditions or safety concerns Grooming (FIM): 5 Bathing (FIM): 4 Shower/Bathe Self (QC): 4 Upper Body Dressing (FIM): 4 Upper Body Dressing (QC): 3 Lower Body Dressing (FIM): 4 Lower Body Dressing (QC): 4 On/Off Footwear (QC): 4 Toileting (FIM): 4 Toileting Hygiene (QC): 4 Toilet/Commode Transfer (FIM): 4 Toilet Transfer (QC): 4 Shower Transfer (FIM): 4 Education OT Patient Education: Rehab process Teaching Recipient: Patient Teaching Methods: Discussion Response to Teaching: Verbalize Understanding OT Short Term Goals Short Term Goals 1=Demonstrate adherence to instructed precautions during ADL tasks. 2=Patient will verbalize/demonstrate understanding of assistive devices/ modifications for ADL. 3=Patient will improve strength/tolerance for activity to enable patient to perform ADL's. OT Rn Nursery Goals Rn Nursery Goals Time Frame: Apr 02, 2018 Eating (FIM): 7 Eating (QC): 6 Groomin Oral Hygiene (QC): 6 Bathing(FIM): 6 Shower/Bathe Self (QC): 6 Upper Body Dressing(FIM): 6 Upper Body Dressing (QC): 6 Lower Body Dressing(FIM): 6 Lower Body Dressing (QC): 6 On/Off Footwear (QC): 6 Toileting(FIM): 6 Toileting Hygiene (QC): 6 Toilet/Commode Transfer(FIM): 6 Toilet/Commode Transfer (QC): 6 Shower Transfer(FIM): 5 Additional Goals: 1-Demonstrate ADL Tasks, 2-Verbalize Understanding, 3- ImproveStrength/[place] 1=Demonstrate adherence to instructed precautions during ADL tasks. 2=Patient will verbalize/demonstrate understanding of assistive devices/ modifications for ADL. 3=Patient will improve strength/tolerance for activity to enable patient to perform ADL's. OT Education/Plan Problem List/Assessment Assessment: Decreased Activ Tolerance, Decreased UE Strength, Dependent Transfers, Impaired Coordination, Impaired Funct Balance, Impaired I ADL's, Impaired Self-Care Skills Discharge Recommendations Plan/Recommendations: Continue POC Treatment Plan/Plan of Care Treatment,Training & Education: Yes Patient would benefit from OT for education, treatment and training to promote independence in ADL's, mobility, safety and/or upper extremity function for ADL' s. Plan of Care: ADL Retraining, Functional Mobility, Group Exercise/Act as Ind, UE Funct Exercise/Act, UE Neuromus Re-Ed/Coord Treatment Duration: Apr 02, 2018 Frequency: At least 5 of 7 days/Wk (IRF) Estimated Hrs Per Day: 1.5 hours per day Agreement: Yes Rehab Potential: Good Time/GCodes Start Time: 11:00 Stop Time: 12:00 Total Time Billed (hr/min): 60 Billed Treatment Time 1 visit, EVM(15minutes), ADLx3(45minutes) GURDEEP JONES OT Mar 12, 2018 12:45
[2018-03-12] MEDS ORDERED: ATOR20TA66 PO (13:20)
--- NOTE | 2018-03-12 13:38 | Physical Therapy Daily Note ---
PT Daily Note-Current Subjective Pt awake in room finishing lunch when PT entered. Pt agreed to get up and work with PT. Pain Numeric Pain Scale: 0-No Pain Location: No Pain Reported Mental Status Patient Orientation: Normal For Age Attachments: IV Transfers Functional [place] Measure 0=Not Assessed/NA 4=Minimal Assistance 1=Total Assistance 5=Supervision or Setup 2=Maximal Assistance 6=Modified [place] 3=Moderate Assistance 7=Complete IndependenceIRFPAI Quality Coding Scale 6 Independent with activity with or without an assistive device 5 Patient requires set up or clean up by helper. Patient completes activity by themselves 4 Supervision or touching assist (CGA). [place] provide cues , steadying assist 3 The helper provides less than half the effort to complete the activity 2 The helper provides more than half the effort to complete the activity 1 Dependent. The helper does all the effort to complete an activity 7 Patient refused to complete or attempt activity 9 The patient did not perform the activity before the current illness or injury 88 Not attempted due to Medical conditions or safety concerns Transfers (B, C, W/C) (FIM): 5 Scootin Rollin Roll Left to Right (QC): 5 Supine to/from Sit: 5 Sit to/from Stand: 5 Sit to Lying (QC): 5 Sit to Stand (QC): 5 Weight Bearing Right Lower Extremity: Right Full Weight Bearing Left Lower Extremity: Left Full Weight Bearing Gait Training Does the Patient Walk?: Yes Gait (FIM): 4 Distance (FIM): 3=150 ft Distance: 150' Gait Level of Assist: 4 Gait Persons Needed: 1 Gait Assistive Device: FWW Stair Training Stair Training: Handrails/: 1 handrail Stairs (FIM): 2 #of Steps: 8 Stairs: Pattern: Reciprocal Level of Assist: 4 Exercises Supine Ex: Scooting Seated Therapy Exercises: Long arc quads Seated Reps: 15 Neuromuscular Tandem and narrow MAURICIO in parallel bars. Patient continues to try and use hand for proprioceptive feedback. Patient has shown progress in being able to keep balance but fatigues quickly. Assessment Patient was able to ambulate for 150' with FWW requiring CGA. Patient started showing signs of fatigue when she entered PT gym after walking. Pt worked on tandem MAURICIO and reaching activities across midline to test limits of stability. Patient needed CGA assist and performed the previous exercises within the parallel bars. Patient used reciprocal gait pattern ascending and descending steps without an AD. Patient used handrail for balance to turn around at the top of steps and needs CGA throughout entire stairs exercise. She finished therapy with scooting at edge of mat and SAC with 4lbs on L LE for strengthening. PT Assisted Goals Assisted Goals PT Assisted Goals Time Frame: Mar 26, 2018 Transfers (B,C,W/C) (FIM): 7 Sit to Lying (QC): 6 Lying-Sitting on Side/Bed(QC): 6 Sit to Stand (QC): 6 Rollin Roll Left to Right (QC): 6 Chair/Tjm-wc-Aucpe Xfer(QC): 6 Car Transfer (QC): 6 Does the Patient Walk: Yes Gait (FIM): 6 Gait distance (FIM): 3=150 ft Distance: 300' Walk 10 feet (QC): 6 Walk 10ft-Uneven Surface(QC): 6 Walk 50ft with 2 Turns (QC): 6 Walk 150 ft (QC): 6 Gait Level of Assist: 6 Gait Assistive Device: FWW Does the Pt use WC or Scooter?: No Stairs (FIM): 6 # of Steps: 12 1 Step (curb) (QC): 6 4 Steps (QC): 6 12 Steps (QC): 6 Stairs Level Of Assist: 6 Picking up an Object (QC): 6 PT Plan Problem List Problem List: Activity Tolerance, Functional Strength, Safety, Balance, Gait, Transfer, Bed Mobility Treatment/Plan Treatment Plan: Continue Plan of Care Treatment Plan: Bed Mobility, Education, Functional Activity Yocasta, Functional Strength, Group Therapy, Gait, Safety, Therapeutic Exercise, Transfers Treatment Duration: Mar 26, 2018 Frequency: At least 5 of 7 days/Wk (IRF) Estimated Hrs Per Day: 1.5 hours per day Patient and/or Family Agrees t: Yes Time/GCodes Time In: 1300 Time Out: 1330 Total Billed Treatment Time: 30 Total Billed Treatment 1 visit GT - 10' EX - 20' SHOSHANA DOBBS PT Mar 12, 2018 13:38
--- NOTE | 2018-03-12 13:40 | PM&R Post Admission Assessment ---
Post Admission Physician Asses Date seen by provider: Mar 12, 2018 Time seen by provider: 12:00 The preadmission screen agrees with the post admission assessment that the patient is a good candidate for inpatient rehabilitation. The patient will have a comprehensive program of inpatient rehabilitation with a goal of maximizing level of functional independence prior to discharge home with spouse. The patient will have PT/OT ninety minutes per day, each discipline, five days a week for 2 weeks for gait, strengthening, conditioning, balance, ADLs, any patient/family/caregiver training as necessary. Speech therapy to do cognitive assessment and treat as indicated. Rehabilitation nursing to assist with bowel, bladder, skin, wound care, medication administration, pain management. Washing Machine Operator to assist with discharge planning, community reentry. SCD's and lovenox subcut for DVT prophylaxis. She appears to be well motivated to participate in three hours of therapy a day. She should be able to tolerate three hours of therapy a day from a medical standpoint. She should benefit from the three hours of therapy a day. She has a reasonable discharge plan, reasonable discharge rehabilitation goals and a supportive family. She has various comorbidities that need to be closely monitored with medications and treatments adjusted on a daily basis as needed. These include: HTN DM Barriers to discharge for this patient who had been independent prior to this are for her to be modified independent to supervision for ADLs and mobility skills prior to discharge home with family, so as to lessen the burden of the caregivers. Risks for this patient include: 1. Fall 2. Fracture 3. DVT 4. Pulmonary embolism 5. Poorly controlled DM 6. Skin breakdown 7. Contractures 8. Poorly controlled pain 9. Urinary retention 10. UTI 11. Respiratory infection 12. Aspiration 13.Poorly controlled HTN Estimated Length of Stay: 18 days Prognosis: Rehab prognosis appears good for goal of discharge home with family modified independent to supervision for ADLs and mobility skills. Date Identified: Mar 12, 2018 Time Identified: 12:00 Action Plan to Resolve CSMI: Transfer meds reviewed General: Alert, Oriented X3, Cooperative, No Acute Distress HEENT: Atraumatic, PERRLA, EOMI, Mucous Memb Moist/[place] Neck: Supple, No JVD Lungs: Clear to Auscultation Heart: Regular Rate Abdomen: Normal Bowel Sounds, Soft, No Tenderness Extremities: No Edema Neuro: Other (Left sided weakness and impaired coordination Sensation decreased in Feet ) JUANCARLOS LENNON MD Mar 12, 2018 13:40
--- NOTE | 2018-03-12 13:54 | ST Cognitive Linguistic Eval ---
Speech Evaluation-General Medical Diagnosis CVA Onset Date: Mar 08, 2018 Therapy Diagnosis Therapy Diagnosis: Cognition Precautions Precautions: Fall Precautions/Isolations: Standard Precautions Medical History Pertinent Medical History: DM, GERD, HTN, Hypothroidism Reviewed History: Yes Social History Current Living Status: Spouse Speech PLF-Current Status Prior Level of Function Patient lived at home with family. She was independent with all skills. Subjective Patient was pleasant and cooperative. Language Eval: Auditory Comprehends Simple Yes/No Ques: Functional Follows 1-Step Commands: Functional Follows General Conversations: Functional Language Eval: Verbal Language Completes Spontaneous Greeting: Functional Produces Auto, Serial Info: Functional Imitates Simple Words/Phrases: Functional (Did not test) Cognitive Patient Orientation Patient is oriented x3 Objective Cognitive Domain Attention: WNL Memory: WNL Problem Solving: Functional Patient administered the [facility] Cognitive/Communication Assessment Objective Results Memory: , 3 Word recall: Immediate 3/3, Delayed Recall 2/3, Remote Recall 3 /3 Organization/Sequencin/, Problem Solvin/4, Comparison: 06/28, Auditory Comprehension: 02/03, Oral Motor/Speech Production Within Functional Limits Impression Patient demonstrates functional cognitive linguistic skills. Communication/Social Cognition Comprehension: 7 Expression: 7 Social Interaction: 7 Problem Solvin Memory: 6 Speech Patient Assess Expression of Ideas/Wants: Expression (4) Understanding Verbal Content: Understands (4) Brief Interview-Mental Status: Yes Repetition of Three Words: Three (3) Temporal Orientation: Year: Correct (3) Temporal Orientation: Month: Accurate within 5 days(2) Temporal Orientation: Day: Correct (1) Recall : Wear to say "Sock": Yes, no cue required (2) Recall : Color: Yes, no cue required (2) Recall : Bed: Yes, no cue required (2) Speech Short Term Goals Short Term Goals Short Term Goals Skilled ST is not indicated at this time. Speech Director [facility] Goals [facility] Goals Skilled ST is not indicated at this time. Speech-Plan Patient/Family Goals Patient/Family Goals: Patient plans to return home with family. Treatment Plan Speech Therapy Treatment Plan: Discontinue ST Patient does not require skilled ST at this time. Frequency: Modified Program (IRF) (0) Estimated Hrs Per Day: Other (0) Rehab Potential: Good Barriers to Learning: None identified Pt/Family Agrees to Plan: Yes Safety Risks/Education Teaching Recipient: Patient Teaching Methods: Discussion Response to Teaching: Verbalize Understanding Time Speech Therapy Time In: 13:30 Speech Therapy Time Out: 13:45 Total Billed Time: 15 Billed Treatment Time 1HALIMA BETHANIA ST Mar 12, 2018 13:53
--- NOTE | 2018-03-12 14:19 | HISTORY AND PHYSICAL ---
DATE OF SERVICE: 03/12/2018 CHIEF COMPLAINT: Difficulty with walking. 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 She was admitted her hypertension was controlled. Her diabetes mellitus was poorly controlled, it is well under better control. She continued with aspirin and Plavix. Dr. Paz, cardiology was consulted. Medications adjusted. Therapies were begun and the patient was felt to be appropriate for inpatient rehabilitation. Currently, she is min assist for transfers and gait with a front wheel walker. 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 Currently, she is set up for grooming, min assist for upper body dressing, mod assist for lower body dressing and toilet transfers. She had an implantation of a loop monitor on 03/11/[address] Paz. She did not qualify for TPA.She is min assist for transfers and gait with a walker PAST MEDICAL HISTORY: Hypertension, hyperlipidemia, depression, diabetes mellitus, hypothyroidism. PRIMARY CARE PHYSICIAN: Dr. Curran. PAST SURGICAL HISTORY: Rotator cuff repair, gastric sleeve. ALLERGIES: No known medication allergies. FAMILY HISTORY: Hypertension. SOCIAL HISTORY: As per above. REVIEW OF SYSTEMS: A 10-point review of systems significant for left-sided weakness. MEDICATIONS: KCl 10 mEq p.o. on Thursday, Thursday, Thursday. ASA 81 mg p.o. daily, Plavix 75 mg p.o. daily, hydrochlorothiazide 25 mg p.o. daily, lisinopril 10 mg p.o. daily, Toprol-XL 50 mg p.o. daily, Synthroid 88 mcg p.o. daily, Lipitor 80 mg p.o. each day at bedtime, Pepcid 20 mg p.o. b.i.d., Ditropan 5 mg p.o. b.i.d., Lovenox 40 mg subq daily, sliding scale insulin regimen. The patient is on medication Xultophy 22 units subcu daily, eyedrops one drop both eyes b.i.d., Tylenol 650 mg p.o. q.6 hours p.r.n. pain. PHYSICAL EXAMINATION: GENERAL: Significant for a female appearing her stated age, alert and oriented, no acute distress. VITAL SIGNS: She is afebrile, pulse 79, respirations 20, blood pressure 148/86, O2 sat 98% on room air. HEENT: Vision, speech, hearing is functional. No oral lesion is noted. NECK: Supple without mass. HEART: Regular rhythm. LUNGS: Clear. ABDOMEN: Soft, nontender, bowel sounds present. EXTREMITIES: No lower leg edema, no calf tenderness. MUSCULOSKELETAL: The patient has functional passive range of motion in all 4 extremities. NEUROLOGIC: Strength in lower limbs 4+/5. She has ataxia in the left. She has impaired sensation to touch in the hand and foot and ankle. Strength in the left upper limb, shoulder grossly 4-/5, elbow 4/5. Coordination is decreased in the left upper limb. She is right hand dominant. IMPRESSION: 1. Ambulatory dysfunction secondary to right jaime radiata infarct with resulting left hemiparesis. 2. Hypertension, controlled with medication. 3. Diabetes mellitus, controlled with medication. 4. Hyperlipidemia, statin restarted. 5. Depression. Avoid SSRIs at this time. 6. Deep vein thrombosis prophylaxis, Lovenox. 7. Gastrointestinal prophylaxis Pepcid. PLAN: The patient is admitted to inpatient rehabilitation unit for a comprehensive program of inpatient stroke rehabilitation with goal of maximizing level of functional [place] prior to discharge home with spouse. The patient will have PT, OT 90 minutes a day per discipline, 5 days a week for 2 weeks with the above goals in mind. Speech therapy to do cognitive assessment and treat as indicated. Please see post-admission physician evaluation, which is a separate document for details of plan of care. Rehabilitation nursing to assist with bowel, bladder, skin care, medication administration, pain management. student services counselor for discharge planning, community reentry. Follow up with Dr. Curran and cardiology as per their schedule.Monitor accucheks and adjust meds as needed ESTIMATED LENGTH OF STAY: 18 days. PROGNOSIS: Rehab prognosis appears good for goal of discharging home with spouse modified independent to supervision of ADLs and mobility skills. DIET: Carb consistent. CODE STATUS: Full code. Job ID: [id number] DocumentID: [id number] Dictated Date: 03/12/2018 13:36:17 Hot Packer Date: 03/12/2018 14:18:58 Dictated By: JUANCARLOS LENNON MD [facility]
--- NOTE | 2018-03-12 14:59 | Occupational Ther Daily Note ---
OT Current Status-Daily Note Subjective Pt sitting in chair, states she is tired, but is motivated to participate in therapy. No c/o pain. Mental Status/Objective Functional [place] Measure 0=Not Assessed/NA 4=Minimal Assistance 1=Total Assistance 5=Supervision or Setup 2=Maximal Assistance 6=Modified [place] 3=Moderate Assistance 7=Complete [place] ADL-Treatment Functional [place] Measure 0=Not Assessed/NA 4=Minimal Assistance 1=Total Assistance 5=Supervision or Setup 2=Maximal Assistance 6=Modified [place] 3=Moderate Assistance 7=Complete IndependenceIRFPAI Quality Coding Scale 6 Independent with activity with or without an assistive device 5 Patient requires set up or clean up by helper. Patient completes activity by themselves 4 Supervision or touching assist (CGA). [place] provide cues , steadying assist 3 The helper provides less than half the effort to complete the activity 2 The helper provides more than half the effort to complete the activity 1 Dependent. The helper does all the effort to complete an activity 7 Patient refused to complete or attempt activity 9 The patient did not perform the activity before the current illness or injury 88 Not attempted due to Medical conditions or safety concerns Other Treatment Pt participated in UE activity to increase ROM and fine motor coordination. Pt completed peg activity with left hand. Pt has decreased coordination and strength, requires increased time to complete task. Theraputty activity with left hand to increase strength and coordination/manipulation skills. Pt able to remove small beads from putty with increased time. Pt completed hand manufacturing systems engineer exercises with blue therapy foam to increase manufacturing systems engineer strength for functional tasks. Pt sitting in chair with needs met after session. OT Short Term Goals Short Term Goals 1=Demonstrate adherence to instructed precautions during ADL tasks. 2=Patient will verbalize/demonstrate understanding of assistive devices/ modifications for ADL. 3=Patient will improve strength/tolerance for activity to enable patient to perform ADL's. OT Mcfp Goals Mcfp Goals Time Frame: Apr 02, 2018 Eating (FIM): 7 Eating (QC): 6 Groomin Oral Hygiene (QC): 6 Bathing(FIM): 6 Shower/Bathe Self (QC): 6 Upper Body Dressing(FIM): 6 Upper Body Dressing (QC): 6 Lower Body Dressing(FIM): 6 Lower Body Dressing (QC): 6 On/Off Footwear (QC): 6 Toileting(FIM): 6 Toileting Hygiene (QC): 6 Toilet/Commode Transfer(FIM): 6 Toilet/Commode Transfer (QC): 6 Shower Transfer(FIM): 5 Additional Goals: 1-Demonstrate ADL Tasks, 2-Verbalize Understanding, 3- ImproveStrength/[place] 1=Demonstrate adherence to instructed precautions during ADL tasks. 2=Patient will verbalize/demonstrate understanding of assistive devices/ modifications for ADL. 3=Patient will improve strength/tolerance for activity to enable patient to perform ADL's. OT Education/Plan Discharge Recommendations Plan/Recommendations: Continue POC Treatment Plan/Plan of Care Patient would benefit from OT for education, treatment and training to promote independence in ADL's, mobility, safety and/or upper extremity function for ADL' s. Plan of Care: ADL Retraining, Functional Mobility, Group Exercise/Act as Ind, UE Funct Exercise/Act, UE Neuromus Re-Ed/Coord Treatment Duration: Apr 02, 2018 Frequency: At least 5 of 7 days/Wk (IRF) Estimated Hrs Per Day: 1.5 hours per day Agreement: Yes Rehab Potential: Good Time/GCodes Start Time: 14:10 Stop Time: 14:25 Total Time Billed (hr/min): 15 Billed Treatment Time 1 visit, FA(15minutes) GURDEEP JONES OT Mar 12, 2018 14:59
[2018-03-12 16:12] VITALS: BP 149/88
[2018-03-12] MEDS: inSUlin ASPART (NovoLOG) 1 UNIT/0.01 ML (CHARGE PER UNIT) SC SCH ×2 (17:54→20:43)
[2018-03-12] MEDS: FAMOTIDINE 20 MG (PEPCID) TABLET PO SCH (20:38)
[2018-03-12] MEDS: ATORVASTATIN 80 MG (LIPITOR) TABLET PO SCH (20:38)
[2018-03-12] MEDS: OXYBUTYNIN (DITROPAN) 5 MG TAB PO SCH (20:38)
[2018-03-12] MEDS: ENOXAPARIN 40 MG/0.4 ML (LOVENOX) SYR SC SCH (20:38)
[2018-03-13] MEDS: inSUlin ASPART (NovoLOG) 1 UNIT/0.01 ML (CHARGE PER UNIT) SC SCH ×4 (05:08→20:32)
[2018-03-13 05:22] VITALS: BP 152/85
[2018-03-13] MEDS: LEVOTHYROXINE 88 MCG (LEVOTHORID) TAB PO SCH (06:42)
[2018-03-13] MEDS: HYDROCHLOROTHIAZIDE 25 MG (HCTZ) TAB PO SCH (08:53)
[2018-03-13] MEDS: lisINopril 10 MG (PRINIVIL) TABLET PO SCH (08:53)
[2018-03-13] MEDS: FAMOTIDINE 20 MG (PEPCID) TABLET PO SCH ×2 (08:53→20:31)
[2018-03-13] MEDS: meTOproloL SUCCINATE 50 MG (TOPROL XL) TAB PO SCH (08:53)
[2018-03-13] MEDS: OXYBUTYNIN (DITROPAN) 5 MG TAB PO SCH ×2 (08:54→20:30)
[2018-03-13] MEDS: ASPIRIN E.C. 81 MG (ECOTRIN) TAB PO SCH (08:54)
[2018-03-13] MEDS: CLOPIDOGREL 75 MG (PLAVIX) TABLET PO SCH (08:54)
[2018-03-13] MEDS: LIFITEGRAST EYE OU SCH ×2 (08:56→20:32)
[2018-03-13] MEDS: LIRAGLUTIDE SQ SCH (09:01)
[2018-03-13] MEDS: [UNRECOGNIZED DRUG - OTHER] SQ SCH (09:01)
[2018-03-13] MEDS: INSULIN DEGLUDEC SQ SCH (09:01)
--- NOTE | 2018-03-13 12:38 | Physical Therapy Daily Note ---
PT Daily Note-Current Subjective Agreeabl eot PT. Reports she is bored in her room. Mental Status Patient Orientation: Person, Place, Time, Situation Transfers Functional [place] Measure 0=Not Assessed/NA 4=Minimal Assistance 1=Total Assistance 5=Supervision or Setup 2=Maximal Assistance 6=Modified [place] 3=Moderate Assistance 7=Complete IndependenceIRFPAI Quality Coding Scale 6 Independent with activity with or without an assistive device 5 Patient requires set up or clean up by helper. Patient completes activity by themselves 4 Supervision or touching assist (CGA). [place] provide cues , steadying assist 3 The helper provides less than half the effort to complete the activity 2 The helper provides more than half the effort to complete the activity 1 Dependent. The helper does all the effort to complete an activity 7 Patient refused to complete or attempt activity 9 The patient did not perform the activity before the current illness or injury 88 Not attempted due to Medical conditions or safety concerns Transfers (B, C, W/C) (FIM): 4 (Occas CGA and skilled cues for hand placement. ) Sit to stand x multiple reps during treatment. Improved with sequencing and hand placement after cues. Weight Bearing Right Lower Extremity: Right Full Weight Bearing Left Lower Extremity: Left Full Weight Bearing Gait Training Does the Patient Walk?: Yes Gait (FIM): 4 Distance (FIM): 3=150 ft Distance: 150 ft x 5 reps. Gait Assistive Device: FWW Applied AFO left for gait. Still has a bit of toe catch intermittently, but improved versus without AFO> Focused on foot placement and coordinated movement with gait. Exercises NuStep Minutes: 15 NuStep Workload: 8 Assessment Current Status: Good Progress Improved gait with AFO in place; however, still has a narrow MAURICIO with intermittent scissoring. Progressing with mobilty. PT Shredded Filler Machine Wrapper Layer Goals Jail Goals PT Jail Goals Time Frame: Mar 26, 2018 Transfers (B,C,W/C) (FIM): 7 Sit to Lying (QC): 6 Lying-Sitting on Side/Bed(QC): 6 Sit to Stand (QC): 6 Rollin Roll Left to Right (QC): 6 Chair/Yhx-jb-Uesom Xfer(QC): 6 Car Transfer (QC): 6 Does the Patient Walk: Yes Gait (FIM): 6 Gait distance (FIM): 3=150 ft Distance: 300' Walk 10 feet (QC): 6 Walk 10ft-Uneven Surface(QC): 6 Walk 50ft with 2 Turns (QC): 6 Walk 150 ft (QC): 6 Gait Level of Assist: 6 Gait Assistive Device: FWW Does the Pt use WC or Scooter?: No Stairs (FIM): 6 # of Steps: 12 1 Step (curb) (QC): 6 4 Steps (QC): 6 12 Steps (QC): 6 Stairs Level Of Assist: 6 Picking up an Object (QC): 6 PT Plan Problem List Problem List: Activity Tolerance, Functional Strength, Safety, Balance, Gait, Transfer Treatment/Plan Treatment Plan: Continue Plan of Care Treatment Plan: Bed Mobility, Education, Functional Activity Yocasta, Functional Strength, Group Therapy, Gait, Safety, Therapeutic Exercise, Transfers Treatment Duration: Mar 26, 2018 Frequency: At least 5 of 7 days/Wk (IRF) Estimated Hrs Per Day: 1.5 hours per day Patient and/or Family Agrees t: Yes Safety Risks/Education Patient Education: Transfer Techniques, Safety Issues Teaching Recipient: Patient Teaching Methods: Demonstration, Discussion Response to Teaching: Return Demonstration Time/GCodes Time In: 1135 Time Out: 1215 Total Billed Treatment Time: 40 Total Billed Treatment visit EX 15 GT 25 BRINDA VIVAR PT Mar 13, 2018 12:38
--- NOTE | 2018-03-13 14:30 | Cardiology Progress Note ---
Cardiology SOAP Progress Note Subjective: No cardiac complaints. Objective: I&O/Vital Signs 03/13/18 03/13/18 05:22 09:00 Temp 97.2 Pulse 67 Resp 18 B/P (MAP) 152/85 (107) Pulse Ox 98 O2 Delivery Room Air Room Air Weight (Pounds): 194 Weight (Ounces): 0.0 Weight (Calculated Kilograms): 87.559113 Constitutional: No appears stated age; AAO x 3; No apparent distress, No PERRL , No well-developed, No well-nourished, No other Respiratory: No accessory muscle use, No respiratory distress, No chest tender , No chest expansion is symmetric; chest is bilaterally symmetric; No lungs clear to percussion; lungs clear to auscultation; No crackles, No rhonchi, No rales, No stridor, No wheezing, No pleural rub, No other Cardiovascular: regular rate-rhythm; No irregularly irregular, No extra beats, No parasternal heave is noted, No JVD, No edema, No bradycardia, No tachycardia , No point of maximal impulse, No cardiac thrills are palpable; S1 and S2; No gallop/S3, No gallop/S4, No diastolic murmur, No systolic murmur, No friction rub, No click, No other Gastrointestional: No tender, No soft, No round, No distended, No pulsatile mass, No organomegaly, No guarding, No rebound, No tenderness, No hernia, No mass, No audible bowel sounds, No abnormal bowel sounds, No abdominal bruits, No spleenomegaly, No other Extremities: No normal range of motion, No non-tender, No normal inspection, No pedal edema, No calf tenderness, No normal capillary refill, No pelvis stable , No calf tenderness, No inflammation, No pedal edema, No slow capillary refill , No swelling, No other, No abrasion, No clubbing, No cyanosis, No ecchymosis, No laceration, No no lower extremity edema bilateral, No significant edema, No tenderness, No wound Neurologic/Psychiatric: no motor/sensory deficits, alert, normal mood/affect, oriented x 3 Skin: No normal color, No warm/dry, No cyanosis, No cool, No diaphoresis, No damp, No ecchymosis, No jaundice, No mottled, No pallor, No rash, No tattoos/ piercings, No ulcerations, No rash on exposed areas, No ulcerations on exposed areas, No other Results/Procedures: Labs Laboratory Tests 03/12/18 16:09: Glucometer 309H 03/12/18 20:31: Glucometer 176H 03/13/18 04:46: Glucometer 103 03/13/18 09:58: Glucometer 234H 03/13/18 14:46: Glucometer 169H A/P: Assessment/Dx: Admission Diagnosis CVA Palpitation Hypertension Hyperlipidemia Plan: Assessment/Plan Subacute CVA, did not qualify for TPA, started on aspirin and Plavix. Right sided diagnosed by MRI. Continue on aspirin and Plavix. History of palpitation, questionable paroxysmal atrial fibrillation, maintained on telemetry. We'll continue monitoring. Hypertension, poorly controlled, history of hypertension, I will restart her home medication monitor blood pressure Question hyperlipidemia will be starting on Lipitor 80 mg and monitor tolerance History of depression Diabetes mellitus, followed and managed by primary care physician Hypothyroidism followed and managed by primary care physician Thank you for your consultation. Please call me if you have any questions. Will Anderson MD, FACP, FACC, FSCAI, FHRS, CCDS Interventional Cardiology Cardiac Electrophysiology Vascular Medicine and Endovascular Interventions Jose Martin ANDERSON MD Mar 13, 2018 2:30 pm
[2018-03-13 17:45] VITALS: BP 154/74
[2018-03-13] MEDS: ATORVASTATIN 80 MG (LIPITOR) TABLET PO SCH (20:30)
[2018-03-13] MEDS: ENOXAPARIN 40 MG/0.4 ML (LOVENOX) SYR SC SCH (20:31)
[2018-03-14] MEDS: LEVOTHYROXINE 88 MCG (LEVOTHORID) TAB PO SCH (05:20)
[2018-03-14] MEDS: inSUlin ASPART (NovoLOG) 1 UNIT/0.01 ML (CHARGE PER UNIT) SC SCH ×4 (05:20→20:19)
[2018-03-14 05:56] VITALS: BP 128/80
[2018-03-14 08:00] VITALS: BP 148/88
[2018-03-14] MEDS: CLOPIDOGREL 75 MG (PLAVIX) TABLET PO SCH (08:11)
[2018-03-14] MEDS: ASPIRIN E.C. 81 MG (ECOTRIN) TAB PO SCH (08:11)
[2018-03-14] MEDS: meTOproloL SUCCINATE 50 MG (TOPROL XL) TAB PO SCH (08:12)
[2018-03-14] MEDS: HYDROCHLOROTHIAZIDE 25 MG (HCTZ) TAB PO SCH (08:12)
[2018-03-14] MEDS: OXYBUTYNIN (DITROPAN) 5 MG TAB PO SCH ×2 (08:12→20:20)
[2018-03-14] MEDS: lisINopril 10 MG (PRINIVIL) TABLET PO SCH (08:12)
[2018-03-14] MEDS: FAMOTIDINE 20 MG (PEPCID) TABLET PO SCH ×2 (08:12→20:20)
[2018-03-14] MEDS: LIFITEGRAST EYE OU SCH ×2 (08:17→20:30)
[2018-03-14] MEDS: INSULIN DEGLUDEC SQ SCH (08:17)
[2018-03-14] MEDS: LIRAGLUTIDE SQ SCH (08:17)
[2018-03-14] MEDS: [UNRECOGNIZED DRUG - OTHER] SQ SCH (08:17)
[2018-03-14] MEDS ORDERED: guaiFENesin/DM (ROBITUSSIN DM) 10 ML UDC PO PRN (11:00)
[2018-03-14] MEDS: guaiFENesin (MUCINEX) 600 MG TAB PO SCH ×2 (11:41→20:20)
[2018-03-14] MEDS: SALINE NASAL SPRAY (OCEAN) 45 ML BTL SCH ×4 (11:42→20:24)
--- NOTE | 2018-03-14 11:53 | Progress Note-Hospitalist ---
Subjective HPI/CC On Admission Date Seen by Provider: Mar 14, 2018 Time Seen by Provider: 11:30 Subjective/Events-last exam Patient seen for upper respiratory congestion with cough Reports she was miserable last night with congestion Ordered Robitussin-DM with nasal spray saline No reports the pain Bowels are moving Review of Systems General: Fatigue HEENT: Sinus Congestion, Post Nasal Drip Neurological: Weakness Objective Exam Vital Signs Vital Signs Date Time Temp Pulse Resp B/P (MAP) Pulse Ox O2 Delivery O2 Flow Rate FiO2 03/14/18 09:00 Room Air 03/14/18 05:56 97.8 70 18 128/80 (96) 97 Capillary Refill : General Appearance: No Apparent Distress, WD/WN Respiratory: Chest Non Tender, Lungs Clear, Normal Breath Sounds, No Accessory Muscle Use, No Respiratory Distress Cardiovascular: Regular Rate, Rhythm, No Edema, No Gallop, No JVD, No Murmur, Normal Peripheral Pulses Neurologic/Psychiatric: Alert, Oriented x3, Normal Mood/Affect, Motor Weakness (Left sided weakness) Results/Procedures Lab Patient resulted labs reviewed. Assessment/Plan Assessment and Plan Assess & Plan/Chief Complaint Assessment: Left-sided weakness due to CVA Upper respiratory congestion Diabetes mellitus [id number] Hypertension Hyperlipidemia Plan: Robitussin-DM with saline nasal spray Continue current treatment Diagnosis/Problems Diagnosis/Problems (1) Left-sided weakness Status: Chronic (2) Diabetes mellitus Status: Chronic Qualifiers: Diabetes mellitus type: type 2 Diabetes mellitus fdc insulin use: with fdc use Diabetes mellitus complication status: with circulatory complication Diabetes mellitus complication detail: with other circulatory complications Qualified Codes: E11.59 - Type 2 diabetes mellitus with other circulatory complications; Z79.4 - detention (current) use of insulin (3) Hypertension Status: Chronic Qualifiers: Hypertension type: essential hypertension Qualified Codes: I10 - Essential (primary) hypertension (4) Hyperlipidemia Status: Chronic Qualifiers: Hyperlipidemia type: mixed hyperlipidemia Qualified Codes: E78.2 - Mixed hyperlipidemia (5) Sinus congestion Status: Acute (6) Cerebral infarction, unspecified Status: Chronic Qualifiers: Cerebral infarction mechanism: unspecified mechanism Qualified Codes: I63.9 - Cerebral infarction, unspecified Clinical Quality Measures DVT/VTE Risk/Contraindication: Risk Factor Score Per Nursin RFS Level Per Nursing on Admit: 4+=Very High KANDI IRVIN DO Mar 14, 2018 11:53
--- NOTE | 2018-03-14 12:53 | Cardiology Progress Note ---
Cardiology SOAP Progress Note Subjective: No cardiac complaints. Objective: I&O/Vital Signs 03/14/18 03/14/18 05:56 09:00 Temp 97.8 Pulse 70 Resp 18 B/P (MAP) 128/80 (96) Pulse Ox 97 O2 Delivery Room Air Room Air 03/14/18 00:00 Intake Total 1080 ml Balance 1080 ml Weight (Pounds): 194 Weight (Ounces): 0.0 Weight (Calculated Kilograms): 87.117814 Constitutional: No appears stated age; AAO x 3; No apparent distress, No PERRL , No well-developed, No well-nourished, No other Respiratory: No accessory muscle use, No respiratory distress, No chest tender , No chest expansion is symmetric; chest is bilaterally symmetric; No lungs clear to percussion; lungs clear to auscultation; No crackles, No rhonchi, No rales, No stridor, No wheezing, No pleural rub, No other Cardiovascular: regular rate-rhythm; No irregularly irregular, No extra beats, No parasternal heave is noted, No JVD, No edema, No bradycardia, No tachycardia , No point of maximal impulse, No cardiac thrills are palpable; S1 and S2; No gallop/S3, No gallop/S4, No diastolic murmur, No systolic murmur, No friction rub, No click, No other Gastrointestional: No tender, No soft, No round, No distended, No pulsatile mass, No organomegaly, No guarding, No rebound, No tenderness, No hernia, No mass, No audible bowel sounds, No abnormal bowel sounds, No abdominal bruits, No spleenomegaly, No other Extremities: No normal range of motion, No non-tender, No normal inspection, No pedal edema, No calf tenderness, No normal capillary refill, No pelvis stable , No calf tenderness, No inflammation, No pedal edema, No slow capillary refill , No swelling, No other, No abrasion, No clubbing, No cyanosis, No ecchymosis, No laceration, No no lower extremity edema bilateral, No significant edema, No tenderness, No wound Neurologic/Psychiatric: alert, normal mood/affect, oriented x 3, motor weakness Skin: No normal color, No warm/dry, No cyanosis, No cool, No diaphoresis, No damp, No ecchymosis, No jaundice, No mottled, No pallor, No rash, No tattoos/ piercings, No ulcerations, No rash on exposed areas, No ulcerations on exposed areas, No other Results/Procedures: Labs Laboratory Tests 03/13/18 14:46: Glucometer 169H 03/13/18 19:46: Glucometer 213H 03/14/18 05:17: Glucometer 106 03/14/18 10:18: Glucometer 229H A/P: Assessment/Dx: Admission Diagnosis CVA Palpitation Hypertension Hyperlipidemia Plan: Assessment/Plan Subacute CVA, did not qualify for TPA, started on aspirin and Plavix. Right sided diagnosed by MRI. Continue on aspirin and Plavix. History of palpitation, questionable paroxysmal atrial fibrillation, maintained on telemetry. We'll continue monitoring. Hypertension, better controlled now, history of hypertension, continue blood pressure medications. Question hyperlipidemia will be starting on Lipitor 80 mg and monitor tolerance History of depression Diabetes mellitus, followed and managed by primary care physician Hypothyroidism followed and managed by primary care physician Thank you for your consultation. Please call me if you have any questions. Will Anderson MD, FACP, FACC, FSCAI, FHRS, CCDS Interventional Cardiology Cardiac Electrophysiology Vascular Medicine and Endovascular Interventions Jose Martin ANDERSON MD Mar 14, 2018 12:53 pm
[2018-03-14 17:42] VITALS: BP 144/84
[2018-03-14] MEDS: ATORVASTATIN 80 MG (LIPITOR) TABLET PO SCH (20:20)
[2018-03-14] MEDS: ENOXAPARIN 40 MG/0.4 ML (LOVENOX) SYR SC SCH (20:20)
[2018-03-14] MEDS ORDERED: inSUlin DETERMIR 1 UNIT/0.01 ML (LEVEMIR) CHARGE PER UNIT SQ SCH (21:00)
[2018-03-15] MEDS: LEVOTHYROXINE 88 MCG (LEVOTHORID) TAB PO SCH (05:26)
[2018-03-15] MEDS: inSUlin ASPART (NovoLOG) 1 UNIT/0.01 ML (CHARGE PER UNIT) SC SCH ×4 (05:38→20:44)
[2018-03-15] MEDS: KCL 10 MEQ TAB (MICRO K) PO SCH (05:41)
[2018-03-15 05:43] VITALS: BP 169/89
--- NOTE | 2018-03-15 08:29 | PM & R (SOAP) Progress Note ---
Subjective This was a face to face visit with the patient. Date Seen by Provider: Mar 14, 2018 Time Seen by Provider: 19:20 Subjective/Events-last exam Patient was seen in her room this evening Patient min assist for transfers and gait Patient c/o postnasal drip Discussed with RN Venkat ordered Date Identified: Mar 14, 2018 Time Identified: 19:30 Medication Intervention: Natalie et al ordered as per above Review of Systems HEENT: Post Nasal Drip Objective Physician Exam Last Set of Vital Signs Vital Signs Date Time Temp Pulse Resp B/P (MAP) Pulse Ox O2 Delivery O2 Flow Rate FiO2 03/15/18 05:43 97.9 76 18 169/89 (115) 97 Room Air Capillary Refill : I&O Intake and Output 03/15/18 00:00 Intake Total 1250 ml Balance 1250 ml Intake Oral 1250 ml # Voids 7 General: Alert, Oriented X3, Cooperative, No Acute Distress HEENT: Atraumatic, PERRLA, EOMI, Mucous Memb Moist/[place] Neck: Supple, No JVD Lungs: Clear to Auscultation Heart: Regular Rate Abdomen: Normal Bowel Sounds, Soft, No Tenderness Extremities: No Edema Neuro: Other (Left sided weakness and impaired coordination Sensation decreased in Feet ) Results Lab Data Laboratory Tests 03/12/18 11:23: Glucometer 139H 03/12/18 16:09: Glucometer 309H 03/12/18 20:31: Glucometer 176H 03/13/18 04:46: Glucometer 103 03/13/18 09:58: Glucometer 234H 03/13/18 14:46: Glucometer 169H 03/13/18 19:46: Glucometer 213H 03/14/18 05:17: Glucometer 106 03/14/18 10:18: Glucometer 229H 03/14/18 16:20: Glucometer 187H 03/14/18 20:16: Glucometer 213H 03/15/18 05:34: Glucometer 106 Assessment/Plan Assessment and Plan RT CVA with left HP HTN DM Depression DVT prophylaxis lovenox GI prophylaxis pepcid Allergic rhinitis Plan Continue PT/OT ST to see Meds for post nasal drip Team Conference 11=21=18 This note completed tardy due to Password issues with computer Appreciate Hospitalist note and orders Co-Morbidities that are continuing to impact the rehab process: (include details ) JUANCARLOS LENNON MD Mar 15, 2018 08:29
[2018-03-15] MEDS: guaiFENesin (MUCINEX) 600 MG TAB PO SCH ×2 (09:11→20:56)
[2018-03-15] MEDS: meTOproloL SUCCINATE 50 MG (TOPROL XL) TAB PO SCH (09:11)
[2018-03-15] MEDS: FAMOTIDINE 20 MG (PEPCID) TABLET PO SCH ×2 (09:11→20:56)
[2018-03-15] MEDS: lisINopril 10 MG (PRINIVIL) TABLET PO SCH (09:11)
[2018-03-15] MEDS: CLOPIDOGREL 75 MG (PLAVIX) TABLET PO SCH (09:11)
[2018-03-15] MEDS: HYDROCHLOROTHIAZIDE 25 MG (HCTZ) TAB PO SCH (09:11)
[2018-03-15] MEDS: OXYBUTYNIN (DITROPAN) 5 MG TAB PO SCH ×2 (09:11→20:56)
[2018-03-15] MEDS: INSULIN DEGLUDEC SQ SCH (09:12)
[2018-03-15] MEDS: [UNRECOGNIZED DRUG - OTHER] SQ SCH (09:12)
[2018-03-15] MEDS: LIRAGLUTIDE SQ SCH (09:12)
[2018-03-15] MEDS: ASPIRIN E.C. 81 MG (ECOTRIN) TAB PO SCH (09:12)
[2018-03-15] MEDS: SALINE NASAL SPRAY (OCEAN) 45 ML BTL SCH ×4 (09:30→20:56)
--- NOTE | 2018-03-15 10:07 | Physical Therapy Daily Note ---
PT Daily Note-Current Subjective Pt. states she is so ready to go home. Acknowledges after the REYNOLDS that she has deficits and needs more work on balance etc Pain Numeric Pain Scale: 0-No Pain Location: No Pain Reported Mental Status Patient Orientation: Normal For Age Attachments: Other-See Comments (AFO for 150 ft of gait) Transfers Functional [place] Measure 0=Not Assessed/NA 4=Minimal Assistance 1=Total Assistance 5=Supervision or Setup 2=Maximal Assistance 6=Modified [place] 3=Moderate Assistance 7=Complete IndependenceIRFPAI Quality Coding Scale 6 Independent with activity with or without an assistive device 5 Patient requires set up or clean up by helper. Patient completes activity by themselves 4 Supervision or touching assist (CGA). [place] provide cues , steadying assist 3 The helper provides less than half the effort to complete the activity 2 The helper provides more than half the effort to complete the activity 1 Dependent. The helper does all the effort to complete an activity 7 Patient refused to complete or attempt activity 9 The patient did not perform the activity before the current illness or injury 88 Not attempted due to Medical conditions or safety concerns Transfers (B, C, W/C) (FIM): 5 Scootin Rollin Supine to/from Sit: 6 Sit to/from Stand: 5 Weight Bearing Right Lower Extremity: Right Full Weight Bearing Left Lower Extremity: Left Full Weight Bearing Gait Training Does the Patient Walk?: Yes Gait (FIM): 3 Distance (FIM): 3=150 ft (165x2) Gait Level of Assist: 3 Gait Persons Needed: 1 Gait Assistive Device: FWW several incidents of crossovers, narrow MAURICIO and very large steps left , uneven step length Exercises Supine Ex: Bridging, Straight leg raise, Hip abd/add Supine Reps: 10 sidelying clam shells , side hip abd, prone hamstring curls and hip ext, balance challenges in tall on knees Assessment Current Status: Good Progress REYNOLDS at 37/56...needs FWW FT 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 Goals Detention Goals PT Detention Goals Time Frame: Mar 26, 2018 Transfers (B,C,W/C) (FIM): 7 Sit to Lying (QC): 6 Lying-Sitting on Side/Bed(QC): 6 Sit to Stand (QC): 6 Rollin Roll Left to Right (QC): 6 Chair/Raw-[place]-Zaday Xfer(QC): 6 Car Transfer (QC): 6 Does the Patient Walk: Yes Gait (FIM): 6 Gait distance (FIM): 3=150 ft Distance: 300' Walk 10 feet (QC): 6 Walk 10ft-Uneven Surface(QC): 6 Walk 50ft with 2 Turns (QC): 6 Walk 150 ft (QC): 6 Gait Level of Assist: 6 Gait Assistive Device: FWW Does the Pt use WC or Scooter?: No Stairs (FIM): 6 # of Steps: 12 1 Step (curb) (QC): 6 4 Steps (QC): 6 12 Steps (QC): 6 Stairs Level Of Assist: 6 Picking up an Object (QC): 6 PT Plan Treatment/Plan Treatment Plan: Continue Plan of Care Treatment Plan: Bed Mobility, Education, Functional Activity [place], Functional Strength, Group Therapy, Gait, Safety, Therapeutic Exercise, Transfers Treatment Duration: Mar 26, 2018 Frequency: At least 5 of 7 days/Wk (IRF) Estimated Hrs Per Day: 1.5 hours per day Patient and/or Family Agrees t: Yes Safety Risks/Education Patient Education: Gait Training, Transfer Techniques, Correct Positioning, Disease Process, Safety Issues Teaching Recipient: Patient Teaching Methods: Demonstration, Discussion Response to Teaching: Verbalize Understanding, Return Demonstration, Reinforcement Needed Time/GCodes Time In: 900 Time Out: 1000 Total Billed Treatment Time: 60 Total Billed Treatment 1,NM35m,GT25m G Codes Necessary: DEDE Anderson EMAIL SPECIALIST Mar 15, 2018 10:07
[2018-03-15] MEDS: LIFITEGRAST EYE OU SCH ×2 (10:16→20:57)
--- NOTE | 2018-03-15 10:59 | PM & R (SOAP) Progress Note ---
Subjective This was a face to face visit with the patient. Date Seen by Provider: Mar 15, 2018 Time Seen by Provider: 07:40 Subjective/Events-last exam Patient was seen in her room this AM Patient SBA for transfers Postnasal drip improved with meds Review of Systems Neurological: Weakness Objective Physician Exam Last Set of Vital Signs Vital Signs Date Time Temp Pulse Resp B/P (MAP) Pulse Ox O2 Delivery O2 Flow Rate FiO2 03/15/18 05:43 97.9 76 18 169/89 (115) 97 Room Air Capillary Refill : I&O Intake and Output 03/14/18 23:59 Intake Total 1250 ml Balance 1250 ml Intake Oral 1250 ml # Voids 7 General: Alert, Oriented X3, Cooperative, No Acute Distress HEENT: Atraumatic, PERRLA, EOMI, Mucous Memb Moist/[place] Neck: Supple, No JVD Lungs: Clear to Auscultation Heart: Regular Rate Abdomen: Normal Bowel Sounds, Soft, No Tenderness Extremities: No Edema Neuro: Other (Left sided weakness and impaired coordination Sensation decreased in Feet ) Results Lab Data Laboratory Tests 03/12/18 11:23: Glucometer 139H 03/12/18 16:09: Glucometer 309H 03/12/18 20:31: Glucometer 176H 03/13/18 04:46: Glucometer 103 03/13/18 09:58: Glucometer 234H 03/13/18 14:46: Glucometer 169H 03/13/18 19:46: Glucometer 213H 03/14/18 05:17: Glucometer 106 03/14/18 10:18: Glucometer 229H 03/14/18 16:20: Glucometer 187H 03/14/18 20:16: Glucometer 213H 03/15/18 05:34: Glucometer 106 Assessment/Plan Assessment and Plan RT Cva with left HP HTN DM Depression DVT Prophylaxis GI prophylaxis Allergic rhinitis Plan Continue Pt/OT Team Conference 03-17-18 Co-Morbidities that are continuing to impact the rehab process: (include details ) JUANCARLOS LENNON MD Mar 15, 2018 10:59
--- NOTE | 2018-03-15 11:45 | Cardiology Progress Note ---
Cardiology SOAP Progress Note Subjective: No cardiac complaints. Objective: I&O/Vital Signs 03/15/18 05:43 Temp 97.9 Pulse 76 Resp 18 B/P (MAP) 169/89 (115) Pulse Ox 97 O2 Delivery Room Air 03/15/18 00:00 Intake Total 1000 ml Balance 1000 ml Weight (Pounds): 194 Weight (Ounces): 0.0 Weight (Calculated Kilograms): 87.648860 Constitutional: No appears stated age; AAO x 3; No apparent distress, No PERRL , No well-developed, No well-nourished, No other Respiratory: No accessory muscle use, No respiratory distress, No chest tender , No chest expansion is symmetric; chest is bilaterally symmetric; No lungs clear to percussion; lungs clear to auscultation; No crackles, No rhonchi, No rales, No stridor, No wheezing, No pleural rub, No other Cardiovascular: regular rate-rhythm; No irregularly irregular, No extra beats, No parasternal heave is noted, No JVD, No edema, No bradycardia, No tachycardia , No point of maximal impulse, No cardiac thrills are palpable; S1 and S2; No gallop/S3, No gallop/S4, No diastolic murmur, No systolic murmur, No friction rub, No click, No other Gastrointestional: No tender, No soft, No round, No distended, No pulsatile mass, No organomegaly, No guarding, No rebound, No tenderness, No hernia, No mass, No audible bowel sounds, No abnormal bowel sounds, No abdominal bruits, No spleenomegaly, No other Extremities: No normal range of motion, No non-tender, No normal inspection, No pedal edema, No calf tenderness, No normal capillary refill, No pelvis stable , No calf tenderness, No inflammation, No pedal edema, No slow capillary refill , No swelling, No other, No abrasion, No clubbing, No cyanosis, No ecchymosis, No laceration, No no lower extremity edema bilateral, No significant edema, No tenderness, No wound Neurologic/Psychiatric: alert, normal mood/affect, oriented x 3, motor weakness Skin: No normal color, No warm/dry, No cyanosis, No cool, No diaphoresis, No damp, No ecchymosis, No jaundice, No mottled, No pallor, No rash, No tattoos/ piercings, No ulcerations, No rash on exposed areas, No ulcerations on exposed areas, No other Results/Procedures: Labs Laboratory Tests 03/14/18 16:20: Glucometer 187H 03/14/18 20:16: Glucometer 213H 03/15/18 05:34: Glucometer 106 03/15/18 10:58: Glucometer 174H A/P: Assessment/Dx: Admission Diagnosis CVA Palpitation Hypertension Hyperlipidemia Plan: Assessment/Plan Subacute CVA, did not qualify for TPA, started on aspirin and Plavix. Right sided diagnosed by MRI. Continue on aspirin and Plavix. Implantable loop recorder done by Dr. Paz. History of palpitation, questionable paroxysmal atrial fibrillation, maintained on telemetry. We'll continue monitoring. Hypertension, better controlled now, history of hypertension, continue blood pressure medications. Question hyperlipidemia will be starting on Lipitor 80 mg and monitor tolerance History of depression Diabetes mellitus, followed and managed by primary care physician Hypothyroidism followed and managed by primary care physician Thank you for your consultation. Please call me if you have any questions. Will Anderson MD, FACP, FACC, FSCAI, FHRS, CCDS Interventional Cardiology Cardiac Electrophysiology Vascular Medicine and Endovascular Interventions Jose Martin ANDERSON MD Mar 15, 2018 11:45 am
--- NOTE | 2018-03-15 13:59 | Occupational Ther Daily Note ---
OT Current Status-Daily Note Subjective No pain reported. Pt. states that she is tired from the weekend. Appearance Pt. in bed and dressed. Declines showering stating that she showered yesterday. Mental Status/Objective Patient Orientation: Person, Place, Time, Situation Functional [place] Measure 0=Not Assessed/NA 4=Minimal Assistance 1=Total Assistance 5=Supervision or Setup 2=Maximal Assistance 6=Modified [place] 3=Moderate Assistance 7=Complete [place] ADL-Treatment Functional [place] Measure 0=Not Assessed/NA 4=Minimal Assistance 1=Total Assistance 5=Supervision or Setup 2=Maximal Assistance 6=Modified [place] 3=Moderate Assistance 7=Complete IndependenceIRFPAI Quality Coding Scale 6 Independent with activity with or without an assistive device 5 Patient requires set up or clean up by helper. Patient completes activity by themselves 4 Supervision or touching assist (CGA). [place] provide cues , steadying assist 3 The helper provides less than half the effort to complete the activity 2 The helper provides more than half the effort to complete the activity 1 Dependent. The helper does all the effort to complete an activity 7 Patient refused to complete or attempt activity 9 The patient did not perform the activity before the current illness or injury 88 Not attempted due to Medical conditions or safety concerns Lower Body Dressing (FIM): 5 (SBA to don shoes while seated on side of bed. Shoes were slip on.) Lower Body Dressing (QC): 4 On/Off Footwear (QC): 4 Transfers (B, C, W/C) (FIM): 4 (SBA supine-sit. CGA to stand and ambulate with walker. Please see note.) Other Treatment Pt. ambulated to therapy gym. Began by ambulating slowly with walker and looking at floor. Noted that pt. intentionally picking up left foot for toe/ heel placement. OT asked pt. to stop and think about her movements. Pt. is unable to state why she is looking at floor, or why she is walking so carefully , other than she is afraid that she wont walk in correct pattern. Pt. is encouraged to ambulate the rest of the way by looking ahead, and thinking about how her left foot feels on the floor when it comes down, as well as her toe/ heel placement. Pt. is able to do this and in fact ambulates a bit quicker. Went to therapy gym and assessed vision. Pt. able to scan left to right and find all items on visual scan board. Pt. able to reading acuity measured at 20/ 63 bilaterally with glasses on. Left eye acuity at 20/30 and right eye acuity at 20/40. Contrast sensitivity within functional limits. OT then assessed fine motor coordination and strength. Pt. limited in left hand. Able to string large beads, and then small beads, but has difficulty and often drops the small beads. Noted ability to manipulate small pieces between fingers and to use hands in conjunction with each other, but pt. states that left hand feels like it is "moving underwater." Pt. given two cups, one with water in it. Worked bilateral coordination task with pouring water back and forth. Pt. able to do this but movement is not fluid and pt. has to think about movement. Ambulated back to room with pt. Pt. required CGA with walker. All needs met in room. Pt's mother in room. Pt. and mother are encouraged to advocate for pt 's needs to friends and family, as pt. states that she had many visitors this weekend that would "stay" and would tire her out. Both verbalize understanding. Education OT Patient Education: Correct positioning, Exercise program, Modified ADL techniques, Progress toward Goal/Update tx plan, Purpose of tx/functional activities, Reviewed precautions, Rehab process, Transfer techniques Teaching Recipient: Patient, Family Teaching Methods: Demonstration, Discussion Response to Teaching: Verbalize Understanding, Return Demonstration OT Short Term Goals Short Term Goals 1=Demonstrate adherence to instructed precautions during ADL tasks. 2=Patient will verbalize/demonstrate understanding of assistive devices/ modifications for ADL. 3=Patient will improve strength/tolerance for activity to enable patient to perform ADL's. OT Assisted Goals Assisted Goals Time Frame: Apr 02, 2018 Eating (FIM): 7 Eating (QC): 6 Groomin Oral Hygiene (QC): 6 Bathing(FIM): 6 Shower/Bathe Self (QC): 6 Upper Body Dressing(FIM): 6 Upper Body Dressing (QC): 6 Lower Body Dressing(FIM): 6 Lower Body Dressing (QC): 6 On/Off Footwear (QC): 6 Toileting(FIM): 6 Toileting Hygiene (QC): 6 Toilet/Commode Transfer(FIM): 6 Toilet/Commode Transfer (QC): 6 Shower Transfer(FIM): 5 Additional Goals: 1-Demonstrate ADL Tasks, 2-Verbalize Understanding, 3- ImproveStrength/Y[place]asta 1=Demonstrate adherence to instructed precautions during ADL tasks. 2=Patient will verbalize/demonstrate understanding of assistive devices/ modifications for ADL. 3=Patient will improve strength/tolerance for activity to enable patient to perform ADL's. OT Education/Plan Problem List/Assessment Assessment: Decreased Activ Tolerance, Decreased UE Strength, Dependent Transfers, Impaired Coordination, Impaired Funct Balance, Impaired I ADL's, Impaired Self-Care Skills, Restricted Funct UE ROM Discharge Recommendations Plan/Recommendations: Continue POC Therapy D/C Recommendations: Home w/ Family Support, Occupational Therapy Home Care Comment Equipment needs to be determined. Treatment Plan/Plan of Care Treatment,Training & Education: Yes Patient would benefit from OT for education, treatment and training to promote independence in ADL's, mobility, safety and/or upper extremity function for ADL' s. Plan of Care: ADL Retraining, Functional Mobility, Group Exercise/Act as Ind, UE Funct Exercise/Act, UE Neuromus Re-Ed/Coord Treatment Duration: Apr 02, 2018 Frequency: At least 5 of 7 days/Wk (IRF) Estimated Hrs Per Day: 1.5 hours per day Agreement: Yes Rehab Potential: Good Time/GCodes Start Time: 10:00 Stop Time: 11:00 Total Time Billed (hr/min): 60 Billed Treatment Time 1, FA x 4 KAROL SIMENTAL OT Mar 15, 2018 13:59
--- NOTE | 2018-03-15 14:21 | Therapy Group Daily Note ---
Therapy Daily Group Note Patient Education Topic Home Safety Exercises LE Seated Exercise, UE Exercise Other/Notes Pt. participated in group PT OT session , walking to and from with FWW CGA and safety instructions. Pt. was friendly and shared her name and home town and current situation. Pts. all participated in seated U&L extremity exercises that they lead themselves sharing exercises they have learned during their stay here. Home safety was the education topic utilizing home safety jeopardy as well as bag toss when answering questions. Pts. shared their home experiences and wisdom gained regarding home safety. Pt. to room after Rx, in bed with velsaquez at hand Start Time: 13:00 Stop Time: 14:00 Total Billed Treatment Time: 60 Total Billed Treatment 1,GRP DDEE HOFF DORR OPERATOR Mar 15, 2018 14:21
--- NOTE | 2018-03-15 15:36 | Individualized Plan of Care ---
Individualized Plan of Care Rehab Nursing IPOC Order Admission Date Mar 12, 2018 at 09:38 Current Orders Orders Pt Evaluate/Treat Request (03/12/18 09:02) Request Ot Evaluate & Treat (03/12/18 09:02) Request For Cognitive Services (03/12/18 09:02) Admission Arrival Bed Request (03/12/18 09:30) Admission Arrival Bed Request (03/12/18 09:40) Code/Resuscitation (03/12/18 10:55) Ambulate ,,20 (03/12/18 10:55) Initiate Admission Nursing Pro .admission (03/12/18 10:55) (Nf) Lifitegrast ([place]ra) (03/12/18 11:04) Acetaminophen Tablet/Caplet (Tylenol T (03/12/18 11:00) Aspirin Enteric Coated Tablet (Ecotrin T (03/13/18 09:00) Atorvastatin Tablet (Lipitor Tablet) (03/12/18 21:00) Clopidogrel Tablet (Plavix Tablet) (03/13/18 09:00) Famotidine Tablet (Pepcid Tablet) (03/12/18 21:00) Hydrochlorothiazide Cap/Tablet (Hctz Cap (03/13/18 09:00) Levothyroxine Tablet (Synthroid Tablet) (03/13/18 06:30) Enoxaparin Injection (Lovenox Injection) (03/12/18 20:00) Oxybutynin Tablet (Ditropan Tablet) (03/12/18 21:00) Potassium Chloride (Tablet) (Klor Con Ta (03/15/18 07:00) Insulin Aspart (Novolog) (Novolog (Charg (03/12/18 14:30) Lisinopril Tablet (Zestril Tablet) (03/13/18 09:00) Metoprolol Succinate (Xl) Tab (Toprol Xl (03/13/18 09:00) Consult Physician (03/12/18 10:55) Occupational Therapy Order (03/12/18 10:55) Physical Therapy [place] (03/12/18 10:55) Nursing Communication (Order) (03/12/18 10:55) Cho 75g/M 0snack (21-2400 Ruslan) (03/12/18 Lunch) Patient's Own Med(Rx Use Only) (Patient' (03/12/18 11:15) Admission Order(Inpt,Obs,Sdc) (03/12/18 11:30) Patient Visit (03/12/18 ) Pt Eval Moderate Complexity (03/12/18 ) Ex Neuromuscular, Ea 15 Min (03/12/18 ) Exercise Therap, Ea 15 Min (03/12/18 ) Gait Training, Ea 15 Min (03/12/18 ) Patient Visit (03/12/18 ) Speech Sound Lang Comp (03/12/18 ) Request Ot Evaluate & Treat (03/12/18 14:56) Sequential Compression Device 08,20 (03/12/18 16:29) Dvt/Vte Risk - Notifiy Physici 08 (03/12/18 16:29) Diabetes Education (03/12/18 16:56) Patient Visit (03/13/18 ) Exercise Therap, Ea 15 Min (03/13/18 ) Gait Training, Ea 15 Min (03/13/18 ) Insulin Determir (Per Unit) (Levemir (Pe (03/14/18 21:00) Saline Nasal [place] ([place] Nasal [place]) (03/14/18 11:00) Guaifenesin Tablet (Mucinex Tablet) (03/14/18 11:00) Guaifenesin/Dm Syrup (Robitussin Dm Syru (03/14/18 11:00) Insulin Aspart (Novolog) (Novolog (Charg (03/14/18 16:00) Accucheck Achs ACHS (03/14/18 12:38) Patient Visit (03/15/18 ) Ex Neuromuscular, Ea 15 Min (03/15/18 ) Therapeutic, Group (03/15/18 ) Gait Training, Ea 15 Min (03/15/18 ) PT IPOC Problem List: Activity Tolerance, Functional Strength, Safety, Balance, Gait, Transfer Treatment Plan: Continue Plan of Care Bed Mobility, Education, Functional Activity Yocasta, Functional Strength, Group Therapy, Gait, Safety, Therapeutic Exercise, Transfers Treatment Duration: Mar 26, 2018 Frequency: At least 5 of 7 days/Wk (IRF) Estimated Hrs Per Day: 1.5 hours per day OT IPOC Problems: Decreased Activ Tolerance, Decreased UE Strength, Dependent Transfers , Impaired Coordination, Impaired Funct Balance, Impaired I ADL's, Impaired Self -Care Skills, Restricted Funct UE ROM OT Treatment, Training and Edu: Yes Plan of Care: ADL Retraining, Functional Mobility, Group Exercise/Act as Ind, UE Funct Exercise/Act, UE Neuromus Re-Ed/Coord Treatment Duration: Apr 02, 2018 Frequency: At least 5 of 7 days/Wk (IRF) Estimated Hrs Per Day: 1.[address] IPOC Speech Therapy Treatment Plan: Discontinue ST Treatment Duration: Mar 15, 2018 Frequency: Modified Program (IRF) Estimated Hrs Per Day: Other Masseur/Masseuse/Case Mgmt Masseur/Masseuse/Case Managemen: Discharge Planning, Patient/Family Counseling Dietitian/Electrical Troubleshooter Dietitian/Electrical Troubleshooter to monitor nutritional status and make changes and/or recommendations as needed and work with speech pathology on dietary upgrades as the occur. 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
[2018-03-15 15:57] VITALS: BP 157/92
[2018-03-15] MEDS: ENOXAPARIN 40 MG/0.4 ML (LOVENOX) SYR SC SCH (20:56)
[2018-03-15] MEDS: ATORVASTATIN 80 MG (LIPITOR) TABLET PO SCH (20:56)
[2018-03-16] MEDS: LEVOTHYROXINE 88 MCG (LEVOTHORID) TAB PO SCH (05:29)
[2018-03-16] MEDS: inSUlin ASPART (NovoLOG) 1 UNIT/0.01 ML (CHARGE PER UNIT) SC SCH ×4 (06:10→20:49)
[2018-03-16 06:58] VITALS: BP 164/96
--- NOTE | 2018-03-16 07:58 | PM & R (SOAP) Progress Note ---
Subjective This was a face to face visit with the patient. Date Seen by Provider: Mar 16, 2018 Time Seen by Provider: 07:35 Subjective/Events-last exam Patient was seen in her room this AM Patient SBA for transfers Strength and endurance improving Has AFO on left. Review of Systems Neurological: Weakness Objective Physician Exam Last Set of Vital Signs Vital Signs Date Time Temp Pulse Resp B/P (MAP) Pulse Ox O2 Delivery O2 Flow Rate FiO2 03/16/18 06:58 97.6 69 18 164/96 (118) 98 Room Air Capillary Refill : I&O Intake and Output 03/16/18 00:00 Intake Total 1400 ml Balance 1400 ml Intake Oral 1400 ml # Voids 7 General: Alert, Oriented X3, Cooperative, No Acute Distress HEENT: Atraumatic, PERRLA, EOMI, Mucous Memb Moist/[place] Neck: Supple, No JVD Lungs: Clear to Auscultation Heart: Regular Rate Abdomen: Normal Bowel Sounds, Soft, No Tenderness Extremities: No Edema Neuro: Other (Left sided weakness and impaired coordination Sensation decreased in Feet ) Results Lab Data Laboratory Tests 03/13/18 09:58: Glucometer 234H 03/13/18 14:46: Glucometer 169H 03/13/18 19:46: Glucometer 213H 03/14/18 05:17: Glucometer 106 03/14/18 10:18: Glucometer 229H 03/14/18 16:20: Glucometer 187H 03/14/18 20:16: Glucometer 213H 03/15/18 05:34: Glucometer 106 03/15/18 10:58: Glucometer 174H 03/15/18 15:55: Glucometer 282H 03/15/18 20:20: Glucometer 115H 03/16/18 05:14: Glucometer 135H Assessment/Plan Assessment and Plan RT CVA with left HP HTN DM Depression DVT Prophylaxis GI Prophylaxis Allergic rhinitis Plan Continue PT/OT Team Conference tomorrow Patients spouse in attendance and very supportive Co-Morbidities that are continuing to impact the rehab process: (include details ) JUANCARLOS LENNON MD Mar 16, 2018 07:58
[2018-03-16] MEDS: ASPIRIN E.C. 81 MG (ECOTRIN) TAB PO SCH (08:30)
[2018-03-16] MEDS: lisINopril 10 MG (PRINIVIL) TABLET PO SCH (08:30)
[2018-03-16] MEDS: HYDROCHLOROTHIAZIDE 25 MG (HCTZ) TAB PO SCH (08:30)
[2018-03-16] MEDS: meTOproloL SUCCINATE 50 MG (TOPROL XL) TAB PO SCH (08:30)
[2018-03-16] MEDS: FAMOTIDINE 20 MG (PEPCID) TABLET PO SCH ×2 (08:30→20:49)
[2018-03-16] MEDS: CLOPIDOGREL 75 MG (PLAVIX) TABLET PO SCH (08:30)
[2018-03-16] MEDS: guaiFENesin (MUCINEX) 600 MG TAB PO SCH ×2 (08:30→20:49)
[2018-03-16] MEDS: OXYBUTYNIN (DITROPAN) 5 MG TAB PO SCH ×2 (08:30→20:49)
[2018-03-16] MEDS: SALINE NASAL SPRAY (OCEAN) 45 ML BTL SCH ×4 (08:40→20:50)
[2018-03-16] MEDS: LIFITEGRAST EYE OU SCH ×2 (08:40→20:49)
[2018-03-16] MEDS: INSULIN DEGLUDEC SQ SCH (08:41)
[2018-03-16] MEDS: LIRAGLUTIDE SQ SCH (08:41)
[2018-03-16] MEDS: [UNRECOGNIZED DRUG - OTHER] SQ SCH (08:41)
--- NOTE | 2018-03-16 09:00 | Physical Therapy Daily Note ---
PT Daily Note-Current Subjective Patient in chair pre tx, agrees to PT, no complaints of pain. Appearance Patient in chair in dining area with post tx. Mental Status Patient Orientation: Normal For Age Transfers Functional [place] Measure 0=Not Assessed/NA 4=Minimal Assistance 1=Total Assistance 5=Supervision or Setup 2=Maximal Assistance 6=Modified [place] 3=Moderate Assistance 7=Complete IndependenceIRFPAI Quality Coding Scale 6 Independent with activity with or without an assistive device 5 Patient requires set up or clean up by helper. Patient completes activity by themselves 4 Supervision or touching assist (CGA). [place] provide cues , steadying assist 3 The helper provides less than half the effort to complete the activity 2 The helper provides more than half the effort to complete the activity 1 Dependent. The helper does all the effort to complete an activity 7 Patient refused to complete or attempt activity 9 The patient did not perform the activity before the current illness or injury 88 Not attempted due to Medical conditions or safety concerns Transfers (B, C, W/C) (FIM): 4 Sit to/from Stand: 4 Bed to/from Chair: 4 Patient had a couple of losses of balance to the left side after standing initially. Cues for safety and positioning. Weight Bearing Right Lower Extremity: Right Full Weight Bearing Left Lower Extremity: Left Full Weight Bearing Gait Training Gait (FIM): 4 Distance: 220', 100'x2 Gait Level of Assist: 4 Gait Persons Needed: 1 Gait Assistive Device: FWW Patient ambulated 220' and 100' with a rolling walker with CGA, occasional left toe drag even with AFO on. She also ambulated 100' with a quad cane with CGA, much better steps, no toe drag. Exercises LAQ left side with 3# ankle weight for 5 min, balance activities with cones, sidestepping with quad cane NuStep Minutes: 15 NuStep Workload: 5 Treatments transfers, ambulation, balance training, functional strengthening Assessment Current Status: Fair Progress improved ambulation but did have LOB initially with standing PT Traffic Warehouse Supervisor Goals Traffic Warehouse Supervisor Goals PT Traffic Warehouse Supervisor Goals Time Frame: Mar 26, 2018 Transfers (B,C,W/C) (FIM): 7 Sit to Lying (QC): 6 Lying-Sitting on Side/Bed(QC): 6 Sit to Stand (QC): 6 Rollin Roll Left to Right (QC): 6 Chair/[id number] Xfer(QC): 6 Car Transfer (QC): 6 Does the Patient Walk: Yes Gait (FIM): 6 Gait distance (FIM): 3=150 ft Distance: 300' Walk 10 feet (QC): 6 Walk 10ft-Uneven Surface(QC): 6 Walk 50ft with 2 Turns (QC): 6 Walk 150 ft (QC): 6 Gait Level of Assist: 6 Gait Assistive Device: FWW Does the Pt use WC or Scooter?: No Stairs (FIM): 6 # of Steps: 12 1 Step (curb) (QC): 6 4 Steps (QC): 6 12 Steps (QC): 6 Stairs Level Of Assist: 6 Picking up an Object (QC): 6 PT Plan Problem List Problem List: Activity Tolerance, Functional Strength, Safety, Balance, Gait, Transfer Treatment/Plan Treatment Plan: Continue Plan of Care Treatment Plan: Bed Mobility, Education, Functional Activity [place], Functional Strength, Group Therapy, Gait, Safety, Therapeutic Exercise, Transfers Treatment Duration: Mar 26, 2018 Frequency: At least 5 of 7 days/Wk (IRF) Estimated Hrs Per Day: 1.5 hours per day Patient and/or Family Agrees t: Yes Safety Risks/Education Patient Education: Gait Training, Transfer Techniques, Correct Positioning, Safety Issues Teaching Recipient: Patient Teaching Methods: Demonstration, Discussion Response to Teaching: Reinforcement Needed Time/GCodes Time In: 0800 Time Out: 0900 Total Billed Treatment Time: 60 Total Billed Treatment 1 visit GT 15' NM 15' EX 20' FA 10' OZIEL MOODY PT Mar 16, 2018 09:00
[2018-03-16 09:13] VITALS: BP 169/106
--- NOTE | 2018-03-16 09:31 | Progress Note ---
Objective Exam Last Set of Vital Signs Vital Signs Date Time Temp Pulse Resp B/P (MAP) Pulse Ox O2 Delivery O2 Flow Rate FiO2 03/16/18 09:13 169/106 (127) 03/16/18 06:58 97.6 69 18 98 Room Air Capillary Refill : I&O Intake and Output 03/16/18 00:00 Intake Total 1400 ml Balance 1400 ml Intake Oral 1400 ml # Voids 7 General: Alert, Oriented X3, Cooperative, No Acute Distress HEENT: Atraumatic, PERRLA, EOMI, Mucous Memb Moist/[place] Neck: Supple, No JVD Lungs: Clear to Auscultation Heart: Regular Rate Abdomen: Normal Bowel Sounds, Soft, No Tenderness Extremities: No Edema Neuro: Other (Left sided weakness and impaired coordination Sensation decreased in Feet ) Results Lab Laboratory Tests 03/15/18 10:58: Glucometer 174H 03/15/18 15:55: Glucometer 282H 03/15/18 20:20: Glucometer 115H 03/16/18 05:14: Glucometer 135H Clinical Quality Measures DVT/VTE Risk/Contraindication: Risk Factor Score Per Nursin RFS Level Per Nursing on Admit: 4+=Very High ASHLEY MARTINEZ MD Mar 16, 2018 09:31
[2018-03-16] MEDS ORDERED: lisINopril 10 MG (PRINIVIL) TABLET PO NR (09:40)
--- NOTE | 2018-03-16 09:58 | Cardiology Progress Note ---
Cardiology SOAP Progress Note Subjective: No cardiac complaints. Objective: I&O/Vital Signs 03/16/18 03/16/18 03/16/18 06:58 09:13 12:53 Temp 97.6 Pulse 69 78 Resp 18 20 B/P (MAP) 164/96 (118) 169/106 (127) 155/93 (113) Pulse Ox 98 98 O2 Delivery Room Air Room Air 03/16/18 00:00 Intake Total 1100 ml Balance 1100 ml Weight (Pounds): 194 Weight (Ounces): 0.0 Weight (Calculated Kilograms): [id number] Constitutional: AAO x 3 Respiratory: chest is bilaterally symmetric, lungs clear to auscultation Cardiovascular: regular rate-rhythm, S1 and S2 Gastrointestional: No tender, No soft, No round, No distended, No pulsatile mass, No organomegaly, No guarding, No rebound, No tenderness, No hernia, No mass, No audible bowel sounds, No abnormal bowel sounds, No abdominal bruits, No spleenomegaly, No other Extremities: No normal range of motion, No non-tender, No normal inspection, No pedal edema, No calf tenderness, No normal capillary refill, No pelvis stable , No calf tenderness, No inflammation, No pedal edema, No slow capillary refill , No swelling, No other, No abrasion, No clubbing, No cyanosis, No ecchymosis, No laceration, No no lower extremity edema bilateral, No significant edema, No tenderness, No wound Neurologic/Psychiatric: alert, normal mood/affect, oriented x 3, motor weakness Skin: No normal color, No warm/dry, No cyanosis, No cool, No diaphoresis, No damp, No ecchymosis, No jaundice, No mottled, No pallor, No rash, No tattoos/ piercings, No ulcerations, No rash on exposed areas, No ulcerations on exposed areas, No other Results/Procedures: Labs Laboratory Tests 03/15/18 15:55: Glucometer 282H 03/15/18 20:20: Glucometer 115H 03/16/18 05:14: Glucometer 135H 03/16/18 11:29: Glucometer 109 A/P: Assessment/Dx: Admission Diagnosis CVA Palpitation Hypertension Hyperlipidemia Plan: Assessment/Plan Subacute CVA, did not qualify for TPA, started on aspirin and Plavix. Right sided diagnosed by MRI. Continue on aspirin and Plavix. Implantable loop recorder done by Dr. Paz. Will follow-up with Dr. Paz as an outpatient. History of palpitation, questionable paroxysmal atrial fibrillation, maintained on telemetry. We'll continue monitoring. Hypertension, better controlled now, history of hypertension, continue blood pressure medications. Question hyperlipidemia will be starting on Lipitor 80 mg and monitor tolerance History of depression Diabetes mellitus, followed and managed by primary care physician Hypothyroidism followed and managed by primary care physician Thank you for your consultation. Please call me if you have any questions. Will Anderson MD, FACP, FACC, FSCAI, FHRS, CCDS Interventional Cardiology Cardiac Electrophysiology Vascular Medicine and Endovascular Interventions Jose Martin ANDERSON MD Mar 16, 2018 09:58
[2018-03-16 12:53] VITALS: BP 155/93
--- NOTE | 2018-03-16 13:28 | Physical Therapy Daily Note ---
PT Daily Note-Current Subjective Patient in chair pre tx, agrees to PT, no complaints of pain. Appearance Patient in bed post tx with nurse call, phone, tray, all needs met. Mental Status Patient Orientation: Normal For Age Transfers Functional [place] Measure 0=Not Assessed/NA 4=Minimal Assistance 1=Total Assistance 5=Supervision or Setup 2=Maximal Assistance 6=Modified [place] 3=Moderate Assistance 7=Complete IndependenceIRFPAI Quality Coding Scale 6 Independent with activity with or without an assistive device 5 Patient requires set up or clean up by helper. Patient completes activity by themselves 4 Supervision or touching assist (CGA). [place] provide cues , steadying assist 3 The helper provides less than half the effort to complete the activity 2 The helper provides more than half the effort to complete the activity 1 Dependent. The helper does all the effort to complete an activity 7 Patient refused to complete or attempt activity 9 The patient did not perform the activity before the current illness or injury 88 Not attempted due to Medical conditions or safety concerns Transfers (B, C, W/C) (FIM): 4 Scootin Rollin Supine to/from Sit: 6 Sit to/from Stand: 4 Bed to/from Chair: 4 cues for safety and positioning Weight Bearing Right Lower Extremity: Right Full Weight Bearing Left Lower Extremity: Left Full Weight Bearing Gait Training Gait (FIM): 4 Distance: 200'x2 Gait Level of Assist: 4 Gait Persons Needed: 1 Gait Assistive Device: Cane Large Base Quad CGA, occasional unsteadiness but no LOB Exercises Supine Ex: Bridging, Heel Slides, Straight leg raise, Hip abd/add Supine Reps: 20 (right side) left side knee fallouts x20, LTR x20 Treatments bed mobility and transfers, ambulation, functional strengthening Assessment Current Status: Fair Progress improved ambulation this afternoon PT Group Home Goals Group Home Goals PT Executive Sales Manager Goals Time Frame: Mar 26, 2018 Transfers (B,C,W/C) (FIM): 7 Sit to Lying (QC): 6 Lying-Sitting on Side/Bed(QC): 6 Sit to Stand (QC): 6 Rollin Roll Left to Right (QC): 6 Chair/Yml-kk-Vysgm Xfer(QC): 6 Car Transfer (QC): 6 Does the Patient Walk: Yes Gait (FIM): 6 Gait distance (FIM): 3=150 ft Distance: 300' Walk 10 feet (QC): 6 Walk 10ft-Uneven Surface(QC): 6 Walk 50ft with 2 Turns (QC): 6 Walk 150 ft (QC): 6 Gait Level of Assist: 6 Gait Assistive Device: FWW Does the Pt use WC or Scooter?: No Stairs (FIM): 6 # of Steps: 12 1 Step (curb) (QC): 6 4 Steps (QC): 6 12 Steps (QC): 6 Stairs Level Of Assist: 6 Picking up an Object (QC): 6 PT Plan Problem List Problem List: Activity Tolerance, Functional Strength, Safety, Balance, Gait, Transfer Treatment/Plan Treatment Plan: Continue Plan of Care Treatment Plan: Bed Mobility, Education, Functional Activity [place], Functional Strength, Group Therapy, Gait, Safety, Therapeutic Exercise, Transfers Treatment Duration: Mar 26, 2018 Frequency: At least 5 of 7 days/Wk (IRF) Estimated Hrs Per Day: 1.5 hours per day Patient and/or Family Agrees t: Yes Safety Risks/Education Patient Education: Gait Training, Transfer Techniques, Correct Positioning, Safety Issues Teaching Recipient: Patient Teaching Methods: Demonstration, Discussion Response to Teaching: Reinforcement Needed Time/GCodes Time In: 1300 Time Out: 1330 Total Billed Treatment Time: 30 Total Billed Treatment 1 visit GT 15' EX 15' OZIEL MOODY PT Mar 16, 2018 13:28
--- NOTE | 2018-03-16 15:24 | Occupational Ther Daily Note ---
OT Current Status-Daily Note Subjective No pain reported. Appearance Pt. up in chair. Agrees to work with OT. Mental Status/Objective Patient Orientation: Person, Place, Time, Situation Functional [place] Measure 0=Not Assessed/NA 4=Minimal Assistance 1=Total Assistance 5=Supervision or Setup 2=Maximal Assistance 6=Modified [place] 3=Moderate Assistance 7=Complete [place] ADL-Treatment Functional [place] Measure 0=Not Assessed/NA 4=Minimal Assistance 1=Total Assistance 5=Supervision or Setup 2=Maximal Assistance 6=Modified [place] 3=Moderate Assistance 7=Complete IndependenceIRFPAI Quality Coding Scale 6 Independent with activity with or without an assistive device 5 Patient requires set up or clean up by helper. Patient completes activity by themselves 4 Supervision or touching assist (CGA). [place] provide cues , steadying assist 3 The helper provides less than half the effort to complete the activity 2 The helper provides more than half the effort to complete the activity 1 Dependent. The helper does all the effort to complete an activity 7 Patient refused to complete or attempt activity 9 The patient did not perform the activity before the current illness or injury 88 Not attempted due to Medical conditions or safety concerns Eating (FIM): 7 Eating (QC): 6 Grooming (FIM): 6 (per pt. report) Oral Hygiene (QC): 6 Bathing (FIM): 6 (per pt. report) Shower/Bathe Self (QC): 6 Upper Body (FIM): 6 (per pt. report) Upper Body Dressing (QC): 6 Lower Body Dressing (FIM): 6 Lower Body Dressing (QC): 6 On/Off Footwear (QC): 6 Toileting (FIM): 6 Toileting Hygiene (QC): 6 Transfers (B, C, W/C) (FIM): 6 Toilet/Commode Transfer (FIM): 6 Toilet Transfer (QC): 6 Shower Transfer(FIM): 6 Other Treatment Pt. is up and ready when OT walks into room. Pt. has already showered and dressed this morning with Mod I. Spouse confirms this. Pt. states that she even blow dried hair on her own. Pt. ambulated to therapy gym with SBA and walker. Pt. participated in series of UE strengthening gross and fine motor tasks with chair push ups, 2 lb. dumbbell exercises x 10 reps x 5 exercises in all planes, pincer grasp tasks, and beading tasks. Pt. does have difficulty with picking up small items but states that she has been practicing this in her room. Completed armbike x 10 minutes x mod resistance to increase overall strength. Tolerated this well. Ambulated back to room with all needs met. Education OT Patient Education: Correct positioning, Exercise program, Modified ADL techniques, Progress toward Goal/Update tx plan, Purpose of tx/functional activities, Reviewed precautions, Rehab process, Transfer techniques Teaching Recipient: Patient Teaching Methods: Demonstration, Discussion Response to Teaching: Verbalize Understanding, Return Demonstration OT Short Term Goals Short Term Goals 1=Demonstrate adherence to instructed precautions during ADL tasks. 2=Patient will verbalize/demonstrate understanding of assistive devices/ modifications for ADL. 3=Patient will improve strength/tolerance for activity to enable patient to perform ADL's. OT Retirement Goals Retirement Goals Time Frame: Apr 02, 2018 Eating (FIM): 7 Eating (QC): 6 Groomin Oral Hygiene (QC): 6 Bathing(FIM): 6 Shower/Bathe Self (QC): 6 Upper Body Dressing(FIM): 6 Upper Body Dressing (QC): 6 Lower Body Dressing(FIM): 6 Lower Body Dressing (QC): 6 On/Off Footwear (QC): 6 Toileting(FIM): 6 Toileting Hygiene (QC): 6 Toilet/Commode Transfer(FIM): 6 Toilet/Commode Transfer (QC): 6 Shower Transfer(FIM): 5 Additional Goals: 1-Demonstrate ADL Tasks, 2-Verbalize Understanding, 3- ImproveStrength/[place] 1=Demonstrate adherence to instructed precautions during ADL tasks. 2=Patient will verbalize/demonstrate understanding of assistive devices/ modifications for ADL. 3=Patient will improve strength/tolerance for activity to enable patient to perform ADL's. OT Education/Plan Problem List/Assessment Assessment: Decreased Activ Tolerance, Decreased UE Strength, Impaired Coordination, Impaired I ADL's, Impaired Self-Care Skills, Restricted Funct UE ROM Discharge Recommendations Plan/Recommendations: Continue POC Therapy D/C Recommendations: Home w/ Family Support, Occupational Therapy Outpatient Treatment Plan/Plan of Care Treatment,Training & Education: Yes Patient would benefit from OT for education, treatment and training to promote independence in ADL's, mobility, safety and/or upper extremity function for ADL' s. Plan of Care: ADL Retraining, Functional Mobility, Group Exercise/Act as Ind, UE Funct Exercise/Act, UE Neuromus Re-Ed/Coord Treatment Duration: Apr 02, 2018 Frequency: At least 5 of 7 days/Wk (IRF) Estimated Hrs Per Day: 1.5 hours per day Agreement: Yes Rehab Potential: Good Time/GCodes Start Time: 10:15 Stop Time: 11:15 Total Time Billed (hr/min): 60 Billed Treatment Time 1, FA x 30minutes, Ex x 30minutes KAROL SIMENTAL OT Mar 16, 2018 15:24
--- NOTE | 2018-03-16 15:31 | Occupational Ther Daily Note ---
OT Current Status-Daily Note Subjective No pain reported. Pt. states that her left UE "feels heavy." Appearance Pt. in bed asleep. Wakes up and agrees to work with OT. Mental Status/Objective Patient Orientation: Person, Place, Time, Situation Functional [place] Measure 0=Not Assessed/NA 4=Minimal Assistance 1=Total Assistance 5=Supervision or Setup 2=Maximal Assistance 6=Modified [place] 3=Moderate Assistance 7=Complete [place] ADL-Treatment Functional [place] Measure 0=Not Assessed/NA 4=Minimal Assistance 1=Total Assistance 5=Supervision or Setup 2=Maximal Assistance 6=Modified [place] 3=Moderate Assistance 7=Complete IndependenceIRFPAI Quality Coding Scale 6 Independent with activity with or without an assistive device 5 Patient requires set up or clean up by helper. Patient completes activity by themselves 4 Supervision or touching assist (CGA). [place] provide cues , steadying assist 3 The helper provides less than half the effort to complete the activity 2 The helper provides more than half the effort to complete the activity 1 Dependent. The helper does all the effort to complete an activity 7 Patient refused to complete or attempt activity 9 The patient did not perform the activity before the current illness or injury 88 Not attempted due to Medical conditions or safety concerns Transfers (B, C, W/C) (FIM): 5 (SBA with walker to ambulate to therapy gym.) Pt. ambulates to therapy gym. Transferred to mat and completed trunk flexion/ extension exercises, as well as pelvic rotation/tilt exercises. Worked on vestibular exercises with putting head in all positions and having pt. track with eyes. No dizziness noted or reported. Pt. does have difficulty with fluid movements however and will often move only her hands without moving her head or eyes. Worked on simulated bed transfers with sit-supine, as pt. states that her bed at home is very high. Pt. able to get into bed, but did not seem safe or at ease. Educated her on placing a high back kitchen chair against mat for support to hold onto when rolling to get out of bed. Verbalizes understanding of this. Worked on bilateral coordination exercises with holding pool noodle and moving in all planes. Noted left UE lag. However, pt. is aware of this and is educated to work on bilateral coordination tasks at home. Education OT Patient Education: Correct positioning, Exercise program, Modified ADL techniques, Progress toward Goal/Update tx plan, Purpose of tx/functional activities, Reviewed precautions, Rehab process, Transfer techniques Teaching Recipient: Patient Teaching Methods: Demonstration, Discussion Response to Teaching: Verbalize Understanding, Return Demonstration OT Short Term Goals Short Term Goals 1=Demonstrate adherence to instructed precautions during ADL tasks. 2=Patient will verbalize/demonstrate understanding of assistive devices/ modifications for ADL. 3=Patient will improve strength/tolerance for activity to enable patient to perform ADL's. OT Senior Care Goals Senior Care Goals Time Frame: Apr 02, 2018 Eating (FIM): 7 Eating (QC): 6 Groomin Oral Hygiene (QC): 6 Bathing(FIM): 6 Shower/Bathe Self (QC): 6 Upper Body Dressing(FIM): 6 Upper Body Dressing (QC): 6 Lower Body Dressing(FIM): 6 Lower Body Dressing (QC): 6 On/Off Footwear (QC): 6 Toileting(FIM): 6 Toileting Hygiene (QC): 6 Toilet/Commode Transfer(FIM): 6 Toilet/Commode Transfer (QC): 6 Shower Transfer(FIM): 5 Additional Goals: 1-Demonstrate ADL Tasks, 2-Verbalize Understanding, 3- ImproveStrength/[place] 1=Demonstrate adherence to instructed precautions during ADL tasks. 2=Patient will verbalize/demonstrate understanding of assistive devices/ modifications for ADL. 3=Patient will improve strength/tolerance for activity to enable patient to perform ADL's. OT Education/Plan Problem List/Assessment Assessment: Decreased Activ Tolerance, Decreased UE Strength, Impaired Coordination Discharge Recommendations Plan/Recommendations: Continue POC Therapy D/C Recommendations: Home w/ Family Support, Occupational Therapy Outpatient Treatment Plan/Plan of Care Treatment,Training & Education: Yes Patient would benefit from OT for education, treatment and training to promote independence in ADL's, mobility, safety and/or upper extremity function for ADL' s. Plan of Care: ADL Retraining, Functional Mobility, Group Exercise/Act as Ind, UE Funct Exercise/Act, UE Neuromus Re-Ed/Coord Treatment Duration: Apr 02, 2018 Frequency: At least 5 of 7 days/Wk (IRF) Estimated Hrs Per Day: 1.5 hours per day Agreement: Yes Rehab Potential: Good Time/GCodes Start Time: 14:00 Stop Time: 14:30 Total Time Billed (hr/min): 30 Billed Treatment Time 1, FA x 2 NACCARATO,KAROL OT Mar 16, 2018 15:31
[2018-03-16 16:05] VITALS: BP 143/84
[2018-03-16] MEDS: ENOXAPARIN 40 MG/0.4 ML (LOVENOX) SYR SC SCH (20:49)
[2018-03-16] MEDS: ATORVASTATIN 80 MG (LIPITOR) TABLET PO SCH (20:49)
[2018-03-17 04:14] VITALS: BP 152/92
[2018-03-17] MEDS: LEVOTHYROXINE 88 MCG (LEVOTHORID) TAB PO SCH (05:53)
[2018-03-17] MEDS: inSUlin ASPART (NovoLOG) 1 UNIT/0.01 ML (CHARGE PER UNIT) SC SCH ×4 (05:53→20:45)
[2018-03-17] MEDS: KCL 10 MEQ TAB (MICRO K) PO SCH (05:53)
--- NOTE | 2018-03-17 08:24 | PM & R (SOAP) Progress Note ---
Subjective This was a face to face visit with the patient. Date Seen by Provider: Mar 17, 2018 Time Seen by Provider: 07:50 Subjective/Events-last exam Patient was seen in her room this AM Patient min assist for transfers Postnasal drip improved Affect improved. Objective Physician Exam Last Set of Vital Signs Vital Signs Date Time Temp Pulse Resp B/P (MAP) Pulse Ox O2 Delivery O2 Flow Rate FiO2 03/17/18 04:14 98.1 75 20 152/92 (112) 99 Room Air Capillary Refill : I&O Intake and Output 03/17/18 00:00 Intake Total 1350 ml Balance 1350 ml Intake Oral 1350 ml # Voids 7 General: Alert, Oriented X3, Cooperative, No Acute Distress HEENT: Atraumatic, PERRLA, EOMI, Mucous Memb Moist/[place] Neck: Supple, No JVD Lungs: Clear to Auscultation Heart: Regular Rate Abdomen: Normal Bowel Sounds, Soft, No Tenderness Extremities: No Edema Neuro: Other (Left sided weakness and impaired coordination Sensation decreased in Feet ) Results Lab Data Laboratory Tests 03/14/18 10:18: Glucometer 229H 03/14/18 16:20: Glucometer 187H 03/14/18 20:16: Glucometer 213H 03/15/18 05:34: Glucometer 106 03/15/18 10:58: Glucometer 174H 03/15/18 15:55: Glucometer 282H 03/15/18 20:20: Glucometer 115H 03/16/18 05:14: Glucometer 135H 03/16/18 11:29: Glucometer 109 03/16/18 16:04: Glucometer 192H 03/16/18 20:33: Glucometer 235H 03/17/18 05:52: Glucometer 124H Assessment/Plan Assessment and Plan RT cva with left HP HTN DM Depression DVT Prophylaxis GI Prophylaxis Allergic rhinitis Plan Continue PT/OT Team Conference later today-see report for full functional update and POC and ELOS Co-Morbidities that are continuing to impact the rehab process: (include details ) JUANCARLOS LENNON MD Mar 17, 2018 08:24
[2018-03-17] MEDS: [UNRECOGNIZED DRUG - OTHER] SQ SCH (08:54)
[2018-03-17] MEDS: INSULIN DEGLUDEC SQ SCH (08:54)
[2018-03-17] MEDS: LIRAGLUTIDE SQ SCH (08:54)
[2018-03-17] MEDS: meTOproloL SUCCINATE 50 MG (TOPROL XL) TAB PO SCH (08:55)
[2018-03-17] MEDS: ASPIRIN E.C. 81 MG (ECOTRIN) TAB PO SCH (08:55)
[2018-03-17] MEDS: HYDROCHLOROTHIAZIDE 25 MG (HCTZ) TAB PO SCH (08:55)
[2018-03-17] MEDS: OXYBUTYNIN (DITROPAN) 5 MG TAB PO SCH ×2 (08:55→20:45)
[2018-03-17] MEDS: guaiFENesin (MUCINEX) 600 MG TAB PO SCH ×2 (08:56→20:45)
[2018-03-17] MEDS: lisINopril 40 MG (PRINIVIL) TABLET PO SCH (08:56)
[2018-03-17] MEDS: LIFITEGRAST EYE OU SCH ×2 (08:58→20:46)
[2018-03-17] MEDS: FAMOTIDINE 20 MG (PEPCID) TABLET PO SCH ×2 (08:58→20:45)
[2018-03-17] MEDS: CLOPIDOGREL 75 MG (PLAVIX) TABLET PO SCH (08:58)
[2018-03-17] MEDS: SALINE NASAL SPRAY (OCEAN) 45 ML BTL SCH ×4 (09:06→20:45)
--- NOTE | 2018-03-17 09:20 | Occupational Ther Daily Note ---
OT Current Status-Daily Note Subjective No pain reported. Appearance Pt. is in bed. Agrees to work with OT. Mental Status/Objective Patient Orientation: Person, Place, Time, Situation Functional [place] Measure 0=Not Assessed/NA 4=Minimal Assistance 1=Total Assistance 5=Supervision or Setup 2=Maximal Assistance 6=Modified [place] 3=Moderate Assistance 7=Complete [place] ADL-Treatment Functional [place] Measure 0=Not Assessed/NA 4=Minimal Assistance 1=Total Assistance 5=Supervision or Setup 2=Maximal Assistance 6=Modified [place] 3=Moderate Assistance 7=Complete IndependenceIRFPAI Quality Coding Scale 6 Independent with activity with or without an assistive device 5 Patient requires set up or clean up by helper. Patient completes activity by themselves 4 Supervision or touching assist (CGA). [place] provide cues , steadying assist 3 The helper provides less than half the effort to complete the activity 2 The helper provides more than half the effort to complete the activity 1 Dependent. The helper does all the effort to complete an activity 7 Patient refused to complete or attempt activity 9 The patient did not perform the activity before the current illness or injury 88 Not attempted due to Medical conditions or safety concerns Grooming (FIM): 6 (Pt. is able to brush teeth, blow dry hair, and flat iron hair seated at sink with Mod I.) Oral Hygiene (QC): 6 Bathing (FIM): 6 (Pt. is able to shower self with Mod I.) Shower/Bathe Self (QC): 6 Upper Body (FIM): 6 (Pt. is able to retrieve clothing from closet with walker and some safety concerns only when she is tired.) Upper Body Dressing (QC): 6 Lower Body Dressing (FIM): 6 Lower Body Dressing (QC): 6 On/Off Footwear (QC): 6 Toileting (FIM): 6 Toileting Hygiene (QC): 6 Transfers (B, C, W/C) (FIM): 6 Toilet/Commode Transfer (FIM): 6 Toilet Transfer (QC): 6 Shower Transfer(FIM): 6 Other Treatment Pt. agrees to shower. Ambulates to closet with Mod I using walker. Able to retrieve clothing from closet with Mod I. Noted that on her way to bathroom, pt. has some difficulty knowing where her left foot is in space. Showers and dresses with Mod I and completes grooming tasks seated at sink with Mod I. Pt. is educated on where to place grab bars in her bathroom at home, and educated on use of walker basket. Pt. is also encouraged to wear a rené pack or runners belt at home so that she can carry her cell phone with her at all times. Verbalizes understanding of this. Pt. states that she can use a cane, except for when she gets tired. Would like her own walker for home. Family has already bought a shower chair. All needs are met. Education OT Patient Education: Correct positioning, Modified ADL techniques, Progress toward Goal/Update tx plan, Purpose of tx/functional activities, Reviewed precautions, Rehab process, Transfer techniques Teaching Recipient: Patient Teaching Methods: Demonstration, Discussion Response to Teaching: Verbalize Understanding, Return Demonstration OT Short Term Goals Short Term Goals 1=Demonstrate adherence to instructed precautions during ADL tasks. 2=Patient will verbalize/demonstrate understanding of assistive devices/ modifications for ADL. 3=Patient will improve strength/tolerance for activity to enable patient to perform ADL's. OT Social Work Associate Goals [facility] Goals Time Frame: Apr 02, 2018 Eating (FIM): 7 Eating (QC): 6 Groomin Oral Hygiene (QC): 6 Bathing(FIM): 6 Shower/Bathe Self (QC): 6 Upper Body Dressing(FIM): 6 Upper Body Dressing (QC): 6 Lower Body Dressing(FIM): 6 Lower Body Dressing (QC): 6 On/Off Footwear (QC): 6 Toileting(FIM): 6 Toileting Hygiene (QC): 6 Toilet/Commode Transfer(FIM): 6 Toilet/Commode Transfer (QC): 6 Shower Transfer(FIM): 5 Additional Goals: 1-Demonstrate ADL Tasks, 2-Verbalize Understanding, 3- ImproveStrength/[place] 1=Demonstrate adherence to instructed precautions during ADL tasks. 2=Patient will verbalize/demonstrate understanding of assistive devices/ modifications for ADL. 3=Patient will improve strength/tolerance for activity to enable patient to perform ADL's. OT Education/Plan Problem List/Assessment Assessment: Decreased Activ Tolerance, Impaired Coordination Discharge Recommendations Plan/Recommendations: Continue POC Therapy D/C Recommendations: Home w/ Family Support, Occupational Therapy Outpatient Equpiment Recommendations-D/C: Walker Bag or Basket Comment Pt. will need a walker. Treatment Plan/Plan of Care Treatment,Training & Education: Yes Patient would benefit from OT for education, treatment and training to promote independence in ADL's, mobility, safety and/or upper extremity function for ADL' s. Plan of Care: ADL Retraining, Functional Mobility, Group Exercise/Act as Ind, UE Funct Exercise/Act, UE Neuromus Re-Ed/Coord Treatment Duration: Apr 02, 2018 Frequency: At least 5 of 7 days/Wk (IRF) Estimated Hrs Per Day: 1.5 hours per day Agreement: Yes Rehab Potential: Good Time/GCodes Start Time: 08:00 Stop Time: 09:00 Total Time Billed (hr/min): 60 Billed Treatment Time 1, ADL x 60minutes KAROL SIMENTAL OT Mar 17, 2018 09:20
--- NOTE | 2018-03-17 11:11 | Physical Therapy Daily Note ---
PT Daily Note-Current Subjective Patient sitting EOB pre tx, agrees to PT, no complaints of pain. Appearance Patient sitting EOB post tx with nurse call, phone,tray, all needs met. Mental Status Patient Orientation: Normal For Age Transfers Functional [place] Measure 0=Not Assessed/NA 4=Minimal Assistance 1=Total Assistance 5=Supervision or Setup 2=Maximal Assistance 6=Modified [place] 3=Moderate Assistance 7=Complete IndependenceIRFPAI Quality Coding Scale 6 Independent with activity with or without an assistive device 5 Patient requires set up or clean up by helper. Patient completes activity by themselves 4 Supervision or touching assist (CGA). [place] provide cues , steadying assist 3 The helper provides less than half the effort to complete the activity 2 The helper provides more than half the effort to complete the activity 1 Dependent. The helper does all the effort to complete an activity 7 Patient refused to complete or attempt activity 9 The patient did not perform the activity before the current illness or injury 88 Not attempted due to Medical conditions or safety concerns Transfers (B, C, W/C) (FIM): 5 Sit to/from Stand: 5 Bed to/from Chair: 5 SBA for sit to stand and transfers, patient positions herself appropriately before sitting. Weight Bearing Right Lower Extremity: Right Full Weight Bearing Left Lower Extremity: Left Full Weight Bearing Gait Training Gait (FIM): 5 Distance: 500'x2, 200'x2 Gait Level of Assist: 5 Gait Persons Needed: 1 Gait Assistive Device: FWW Patient uses a left AFO. She ambulated outside over community surfaces, ramps, stairs with SBA. No LOB or unsteadiness, but slow, careful ambulation. Stair Training Stair Training: Handrails/: 1 handrail Stairs (FIM): 2 #of Steps: 8 Stairs: Pattern: Step to Level of Assist: 5 Exercises LAQ left side with 3# ankle weight for 5 min NuStep Minutes: 15 NuStep Workload: 5 Treatments transfers, ambulation, functional strengthening, stair training, gait training Assessment Current Status: Fair Progress improving balance and ambulation PT Penitentiary Goals [facility] Goals PT Regulatory Compliance Director Goals Time Frame: Mar 26, 2018 Transfers (B,C,W/C) (FIM): 7 Sit to Lying (QC): 6 Lying-Sitting on Side/Bed(QC): 6 Sit to Stand (QC): 6 Rollin Roll Left to Right (QC): 6 Chair/Ejl-iy-Dehzx Xfer(QC): 6 Car Transfer (QC): 6 Does the Patient Walk: Yes Gait (FIM): 6 Gait distance (FIM): 3=150 ft Distance: 300' Walk 10 feet (QC): 6 Walk 10ft-Uneven Surface(QC): 6 Walk 50ft with 2 Turns (QC): 6 Walk 150 ft (QC): 6 Gait Level of Assist: 6 Gait Assistive Device: FWW Does the Pt use WC or Scooter?: No Stairs (FIM): 6 # of Steps: 12 1 Step (curb) (QC): 6 4 Steps (QC): 6 12 Steps (QC): 6 Stairs Level Of Assist: 6 Picking up an Object (QC): 6 PT Plan Problem List Problem List: Activity Tolerance, Functional Strength, Safety, Balance, Gait, Transfer Treatment/Plan Treatment Plan: Continue Plan of Care Treatment Plan: Bed Mobility, Education, Functional Activity [place], Functional Strength, Group Therapy, Gait, Safety, Therapeutic Exercise, Transfers Treatment Duration: Mar 26, 2018 Frequency: At least 5 of 7 days/Wk (IRF) Estimated Hrs Per Day: 1.5 hours per day Patient and/or Family Agrees t: Yes Safety Risks/Education Patient Education: Gait Training, Transfer Techniques, Steps, Correct Positioning, Safety Issues Teaching Recipient: Patient Teaching Methods: Demonstration, Discussion Response to Teaching: Reinforcement Needed Time/GCodes Time In: 1000 Time Out: 1100 Total Billed Treatment Time: 60 Total Billed Treatment 1 visit EX 20' GT 40' OZIEL MOODY PT Mar 17, 2018 11:11
--- NOTE | 2018-03-17 12:00 | Physical Therapy Daily Note ---
PT Daily Note-Current Subjective Pt. agrees to Rx. States she feels she is making progress slowly but surely Pain Numeric Pain Scale: 0-No Pain Mental Status Patient Orientation: Normal For Age Attachments: Other-See Comments (AFO) Transfers Functional [place] Measure 0=Not Assessed/NA 4=Minimal Assistance 1=Total Assistance 5=Supervision or Setup 2=Maximal Assistance 6=Modified [place] 3=Moderate Assistance 7=Complete IndependenceIRFPAI Quality Coding Scale 6 Independent with activity with or without an assistive device 5 Patient requires set up or clean up by helper. Patient completes activity by themselves 4 Supervision or touching assist (CGA). [place] provide cues , steadying assist 3 The helper provides less than half the effort to complete the activity 2 The helper provides more than half the effort to complete the activity 1 Dependent. The helper does all the effort to complete an activity 7 Patient refused to complete or attempt activity 9 The patient did not perform the activity before the current illness or injury 88 Not attempted due to Medical conditions or safety concerns all TRFs mod I to SBA Weight Bearing Right Lower Extremity: Right Full Weight Bearing Left Lower Extremity: Left Full Weight Bearing Gait Training Gait Assistive Device: FWW 175x2 SBA with instruction for equal step length and heel strike Exercises Supine Ex: Bridging (staggered), Ankle pumps, Quad Set, Rolling, Glut sets, Heel Slides, Short Arc Quads, Scooting, Straight leg raise, Hip abd/add Supine Reps: 20 sidelying hip abd and clam shells x 10 , supine crunches x 10 Assessment Current Status: Good Progress PT Director Of Health Care Marketing Goals Chcf Goals PT Chcf Goals Time Frame: Mar 26, 2018 Transfers (B,C,W/C) (FIM): 7 Sit to Lying (QC): 6 Lying-Sitting on Side/Bed(QC): 6 Sit to Stand (QC): 6 Rollin Roll Left to Right (QC): 6 Chair/Dww-di-Unbaa Xfer(QC): 6 Car Transfer (QC): 6 Does the Patient Walk: Yes Gait (FIM): 6 Gait distance (FIM): 3=150 ft Distance: 300' Walk 10 feet (QC): 6 Walk 10ft-Uneven Surface(QC): 6 Walk 50ft with 2 Turns (QC): 6 Walk 150 ft (QC): 6 Gait Level of Assist: 6 Gait Assistive Device: FWW Does the Pt use WC or Scooter?: No Stairs (FIM): 6 # of Steps: 12 1 Step (curb) (QC): 6 4 Steps (QC): 6 12 Steps (QC): 6 Stairs Level Of Assist: 6 Picking up an Object (QC): 6 PT Plan Treatment/Plan Treatment Plan: Continue Plan of Care Treatment Plan: Bed Mobility, Education, Functional Activity Yocasta, Functional Strength, Group Therapy, Gait, Safety, Therapeutic Exercise, Transfers Treatment Duration: Mar 26, 2018 Frequency: At least 5 of 7 days/Wk (IRF) Estimated Hrs Per Day: 1.5 hours per day Patient and/or Family Agrees t: Yes Safety Risks/Education Patient Education: Gait Training, Transfer Techniques, Issued Written HEP, Correct Positioning (for crunches and other exercises), Safety Issues Teaching Recipient: Patient Teaching Methods: Demonstration, Discussion Response to Teaching: Verbalize Understanding, Return Demonstration, Reinforcement Needed Time/GCodes Time In: 1100 Time Out: 1130 Total Billed Treatment Time: 30 Total Billed Treatment 1,GT13,EX17 G Codes Necessary: DEDE Anderson G[employer] MATE Mar 17, 2018 12:00
--- NOTE | 2018-03-17 13:16 | Cardiology Progress Note ---
Cardiology SOAP Progress Note Subjective: No cardiac complaints. Objective: I&O/Vital Signs 03/17/18 09:00 O2 Delivery Room Air 03/17/18 00:00 Intake Total 1100 ml Balance 1100 ml Weight (Pounds): 194 Weight (Ounces): 0.0 Weight (Calculated Kilograms): 87.299820 Constitutional: AAO x 3 Respiratory: chest is bilaterally symmetric, lungs clear to auscultation Cardiovascular: regular rate-rhythm, S1 and S2 Gastrointestional: No tender, No soft, No round, No distended, No pulsatile mass, No organomegaly, No guarding, No rebound, No tenderness, No hernia, No mass, No audible bowel sounds, No abnormal bowel sounds, No abdominal bruits, No spleenomegaly, No other Extremities: No normal range of motion, No non-tender, No normal inspection, No pedal edema, No calf tenderness, No normal capillary refill, No pelvis stable , No calf tenderness, No inflammation, No pedal edema, No slow capillary refill , No swelling, No other, No abrasion, No clubbing, No cyanosis, No ecchymosis, No laceration, No no lower extremity edema bilateral, No significant edema, No tenderness, No wound Neurologic/Psychiatric: alert, normal mood/affect, oriented x 3, motor weakness Skin: No normal color, No warm/dry, No cyanosis, No cool, No diaphoresis, No damp, No ecchymosis, No jaundice, No mottled, No pallor, No rash, No tattoos/ piercings, No ulcerations, No rash on exposed areas, No ulcerations on exposed areas, No other Results/Procedures: Labs Laboratory Tests 03/16/18 20:33: Glucometer 235H 03/17/18 05:52: Glucometer 124H 03/17/18 11:01: Glucometer 233H 03/17/18 16:08: Glucometer 138H A/P: Assessment/Dx: Admission Diagnosis CVA Palpitation Hypertension Hyperlipidemia Plan: Assessment/Plan Subacute CVA, did not qualify for TPA, started on aspirin and Plavix. Right sided diagnosed by MRI. Continue on aspirin and Plavix. Implantable loop recorder done by Dr. Paz. Will follow-up with Dr. Paz as an outpatient. History of palpitation, questionable paroxysmal atrial fibrillation, maintained on telemetry. We'll continue monitoring. Hypertension, better controlled now, history of hypertension, continue blood pressure medications. Question hyperlipidemia will be starting on Lipitor 80 mg and monitor tolerance History of depression Diabetes mellitus, followed and managed by primary care physician Hypothyroidism followed and managed by primary care physician Thank you for your consultation. Please call me if you have any questions. Will Anderson MD, FACP, FACC, FSCAI, FHRS, CCDS Interventional Cardiology Cardiac Electrophysiology Vascular Medicine and Endovascular Interventions Jose Martin ANDERSON MD Mar 17, 2018 1:16 pm
--- NOTE | 2018-03-17 16:01 | Occupational Ther Daily Note ---
OT Current Status-Daily Note Subjective Pt stated that she feels she is ready to go home. Appearance Pt supine in bed when OT entered room. Pt willing to work with OT. was in room. Mental Status/Objective Patient Orientation: Person, Place, Time, Situation Functional [place] Measure 0=Not Assessed/NA 4=Minimal Assistance 1=Total Assistance 5=Supervision or Setup 2=Maximal Assistance 6=Modified [place] 3=Moderate Assistance 7=Complete [place] ADL-Treatment Functional [place] Measure 0=Not Assessed/NA 4=Minimal Assistance 1=Total Assistance 5=Supervision or Setup 2=Maximal Assistance 6=Modified [place] 3=Moderate Assistance 7=Complete IndependenceIRFPAI Quality Coding Scale 6 Independent with activity with or without an assistive device 5 Patient requires set up or clean up by helper. Patient completes activity by themselves 4 Supervision or touching assist (CGA). [place] provide cues , steadying assist 3 The helper provides less than half the effort to complete the activity 2 The helper provides more than half the effort to complete the activity 1 Dependent. The helper does all the effort to complete an activity 7 Patient refused to complete or attempt activity 9 The patient did not perform the activity before the current illness or injury 88 Not attempted due to Medical conditions or safety concerns Transfers (B, C, W/C) (FIM): 5 (see note below) Other Treatment Pt transferred from supine to sit on EOB to FWW w/SBA. Pt ambulated to therapy kitchen w/SBA. OT provided education about home safety and techniques for when she is home in her own kitchen. Pt participated in reaching into cabinets to retrieve canned goods while maneuvering with FWW and using countertop for stability. Pt was concerned about how to do laundry, OT educated by giving tips on conserving energy, doing smaller parts of the job with rest breaks, and having setup with some tasks. Pt ambulated to therapy gym and transferred from stand at FWW to sit in chair SBA. Pt participated in armbike activity on mod resistance for approximately 6 1/2 minutes with only 1 rest break. Pt transferred from sit at chair to stand at FWW SBA, ambulates to room SBA. Pt transfers from stand at FWW to sit on EOB SBA. All need met. and son in room. Education OT Patient Education: Energy conservation, Exercise program, Modified ADL techniques, Progress toward Goal/Update tx plan, Purpose of tx/functional activities, Reviewed precautions, Rehab process, Safety issues, Transfer techniques Teaching Recipient: Patient Teaching Methods: Demonstration, Discussion Response to Teaching: Verbalize Understanding, Return Demonstration OT Short Term Goals Short Term Goals 1=Demonstrate adherence to instructed precautions during ADL tasks. 2=Patient will verbalize/demonstrate understanding of assistive devices/ modifications for ADL. 3=Patient will improve strength/tolerance for activity to enable patient to perform ADL's. OT Jail Goals [employer] Dean Goals Time Frame: Apr 02, 2018 Eating (FIM): 7 Eating (QC): 6 Groomin Oral Hygiene (QC): 6 Bathing(FIM): 6 Shower/Bathe Self (QC): 6 Upper Body Dressing(FIM): 6 Upper Body Dressing (QC): 6 Lower Body Dressing(FIM): 6 Lower Body Dressing (QC): 6 On/Off Footwear (QC): 6 Toileting(FIM): 6 Toileting Hygiene (QC): 6 Toilet/Commode Transfer(FIM): 6 Toilet/Commode Transfer (QC): 6 Shower Transfer(FIM): 5 Additional Goals: 1-Demonstrate ADL Tasks, 2-Verbalize Understanding, 3- ImproveStrength/Yocasta 1=Demonstrate adherence to instructed precautions during ADL tasks. 2=Patient will verbalize/demonstrate understanding of assistive devices/ modifications for ADL. 3=Patient will improve strength/tolerance for activity to enable patient to perform ADL's. OT Education/Plan Problem List/Assessment Assessment: Decreased Activ Tolerance, Decreased UE Strength, Restricted Funct UE ROM Discharge Recommendations Plan/Recommendations: Continue POC Therapy D/C Recommendations: Home w/ Family Support, Occupational Therapy Outpatient Comment Walker, walker basket Treatment Plan/Plan of Care Treatment,Training & Education: Yes Patient would benefit from OT for education, treatment and training to promote independence in ADL's, mobility, safety and/or upper extremity function for ADL' s. Plan of Care: ADL Retraining, Functional Mobility, Group Exercise/Act as Ind, UE Funct Exercise/Act, UE Neuromus Re-Ed/Coord Treatment Duration: Apr 02, 2018 Frequency: At least 5 of 7 days/Wk (IRF) Estimated Hrs Per Day: 1.5 hours per day Agreement: Yes Rehab Potential: Good Time/GCodes Start Time: 14:00 Stop Time: 14:30 Total Time Billed (hr/min): 30 Billed Treatment Time 1, ADL x 15 minutes, EX x 15 minutes. KAROL SIMENTAL OT Mar 17, 2018 16:01
[2018-03-17 18:00] VITALS: BP 154/89
[2018-03-17] MEDS: ENOXAPARIN 40 MG/0.4 ML (LOVENOX) SYR SC SCH (20:45)
[2018-03-17] MEDS: ATORVASTATIN 80 MG (LIPITOR) TABLET PO SCH (20:45)
[2018-03-18] MEDS: LEVOTHYROXINE 88 MCG (LEVOTHORID) TAB PO SCH (05:31)
[2018-03-18] MEDS: inSUlin ASPART (NovoLOG) 1 UNIT/0.01 ML (CHARGE PER UNIT) SC SCH (05:31)
[2018-03-18 06:46] VITALS: BP 159/84
--- NOTE | 2018-03-18 07:49 | Occupational Ther Daily Note ---
OT Current Status-Daily Note Subjective No pain reported. Pt. states that she is ready to go home today. Appearance Pt. up in chair. Agrees to shower. Mental Status/Objective Patient Orientation: Person, Place, Time, Situation Functional [place] Measure 0=Not Assessed/NA 4=Minimal Assistance 1=Total Assistance 5=Supervision or Setup 2=Maximal Assistance 6=Modified [place] 3=Moderate Assistance 7=Complete [place] ADL-Treatment Functional [place] Measure 0=Not Assessed/NA 4=Minimal Assistance 1=Total Assistance 5=Supervision or Setup 2=Maximal Assistance 6=Modified [place] 3=Moderate Assistance 7=Complete IndependenceIRFPAI Quality Coding Scale 6 Independent with activity with or without an assistive device 5 Patient requires set up or clean up by helper. Patient completes activity by themselves 4 Supervision or touching assist (CGA). [place] provide cues , steadying assist 3 The helper provides less than half the effort to complete the activity 2 The helper provides more than half the effort to complete the activity 1 Dependent. The helper does all the effort to complete an activity 7 Patient refused to complete or attempt activity 9 The patient did not perform the activity before the current illness or injury 88 Not attempted due to Medical conditions or safety concerns Eating (FIM): 7 Eating (QC): 6 Grooming (FIM): 6 Oral Hygiene (QC): 6 Bathing (FIM): 6 Shower/Bathe Self (QC): 6 Upper Body (FIM): 6 Upper Body Dressing (QC): 6 Lower Body Dressing (FIM): 6 Lower Body Dressing (QC): 6 On/Off Footwear (QC): 6 Toileting (FIM): 6 Toileting Hygiene (QC): 6 Transfers (B, C, W/C) (FIM): 6 Toilet/Commode Transfer (FIM): 6 Toilet Transfer (QC): 6 Shower Transfer(FIM): 6 Other Treatment Pt. agrees to shower. Ambulates to closet with walker and Mod I to retrieve clothing. Pt. able to get clothing out and ambulates to bathroom. Toilets with Mod I using grab bars for transfer. After toileting, ambulates to shower and transfers to shower chair with Mod I. Doffs all clothing including pants, shirt, socks, and shoes. Showers with Mod I and dries all body parts. Pt. dresses self while seated/standing in shower using shower chair and grab bars with Mod I. Able to transfer to chair outside of shower and blow dry hair and brush teeth while seated at sink. Pt. is given pull cord if needed but otherwise is Mod I with ADL tasks. Pt. is educated about continued tasks and activities that she can complete to increase left UE ROM/coordination. Pt. verbalizes understanding of all recommendations. Pt. has already ordered walker basket and has received new walker. All needs are met. Education OT Patient Education: Correct positioning, Exercise program, Home exercise program, Modified ADL techniques, Progress toward Goal/Update tx plan, Purpose of tx/functional activities, Reviewed precautions, Rehab process, Transfer techniques Teaching Recipient: Patient Teaching Methods: Demonstration, Discussion Response to Teaching: Verbalize Understanding, Return Demonstration OT Short Term Goals Short Term Goals 1=Demonstrate adherence to instructed precautions during ADL tasks. 2=Patient will verbalize/demonstrate understanding of assistive devices/ modifications for ADL. 3=Patient will improve strength/tolerance for activity to enable patient to perform ADL's. OT Supervisor Telephone Information Goals Supervisor Telephone Information Goals Time Frame: Apr 02, 2018 Eating (FIM): 7 Eating (QC): 6 Groomin Oral Hygiene (QC): 6 Bathing(FIM): 6 Shower/Bathe Self (QC): 6 Upper Body Dressing(FIM): 6 Upper Body Dressing (QC): 6 Lower Body Dressing(FIM): 6 Lower Body Dressing (QC): 6 On/Off Footwear (QC): 6 Toileting(FIM): 6 Toileting Hygiene (QC): 6 Toilet/Commode Transfer(FIM): 6 Toilet/Commode Transfer (QC): 6 Shower Transfer(FIM): 5 Additional Goals: 1-Demonstrate ADL Tasks, 2-Verbalize Understanding, 3- ImproveStrength/Yocasta 1=Demonstrate adherence to instructed precautions during ADL tasks. 2=Patient will verbalize/demonstrate understanding of assistive devices/ modifications for ADL. 3=Patient will improve strength/tolerance for activity to enable patient to perform ADL's. OT Education/Plan Problem List/Assessment Assessment: Decreased Activ Tolerance, Impaired Coordination Discharge Recommendations Plan/Recommendations: Continue POC Therapy D/C Recommendations: Home w/ Family Support, Occupational Therapy Outpatient Equpiment Recommendations-D/C: Walker Bag or Basket Comment walker Treatment Plan/Plan of Care Treatment,Training & Education: Yes Patient would benefit from OT for education, treatment and training to promote independence in ADL's, mobility, safety and/or upper extremity function for ADL' s. Plan of Care: ADL Retraining, Functional Mobility, Group Exercise/Act as Ind, UE Funct Exercise/Act, UE Neuromus Re-Ed/Coord Treatment Duration: Apr 02, 2018 Frequency: At least 5 of 7 days/Wk (IRF) Estimated Hrs Per Day: 1.5 hours per day Agreement: Yes Rehab Potential: Good Time/GCodes Start Time: 07:00 Stop Time: 07:40 Total Time Billed (hr/min): 40 Billed Treatment Time 1, ADL x 3 KAROL SIMENTAL OT Mar 18, 2018 07:49
[2018-03-18] MEDS ORDERED: LISI40TA PO (07:52)
[2018-03-18] MEDS ORDERED: OXYB5TAB9 PO (07:52)
[2018-03-18] MEDS ORDERED: CLOP75TA28 PO (07:52)
[2018-03-18] MEDS ORDERED: ATOR80TA76 PO (07:52)
--- NOTE | 2018-03-18 07:55 | Therapy Team Discharge Summary ---
Therapy Discharge Summary Discharge Recommendations Date of Discharge 03-18-18 Therapy D/C Recommendations: Home w/ Family Support, Occupational Therapy Outpatient Occupational Therapy Pt. has been seen by occupational therapy to increase overall strength and independence with daily tasks. Pt. has met all goals. Pt. is able to bathe and dress with Mod I. Pt. has walker, shower chair, and has ordered walker basket. Pt. would benefit from outpt occupational therapy. Pt. to discharge home today. Decreased Activ Tolerance, Impaired Coordination PT Fdc Goals Die Repair Goals PT Fdc Goals Time Frame: Mar 26, 2018 Transfers (B,C,W/C) (FIM): 7 Roll Left to Right (QC): 6 Sit to Lying (QC): 6 Lying-Sitting on Side/Bed(QC): 6 Sit to Stand (QC): 6 Chair/Roe-fv-Ipdyx Xfer(QC): 6 Car Transfer (QC): 6 Does the Patient Walk: Yes Gait (FIM): 6 Gait distance (FIM): 3=150 ft Distance: 300' Walk 10 feet (QC): 6 Walk 10ft-Uneven Surface(QC): 6 Walk 50ft with 2 Turns (QC): 6 Walk 150 ft (QC): 6 Gait Level of Assist: 6 Gait Assistive Device: FWW Does the Pt use WC or Scooter?: No Stairs (FIM): 6 # of Steps: 12 1 Step (curb) (QC): 6 4 Steps (QC): 6 12 Steps (QC): 6 Stairs Level Of Assist: 6 Picking up an Object (QC): 6 OT Die Repair Goals Fdc Goals Time Frame: Apr 02, 2018 Eating (FIM): 7 (met) Eating (QC): 6 (met) Oral Hygiene (QC): 6 (met) Grooming(FIM): 6 (met) Bathing(FIM): 6 (met) Shower/Bathe Self (QC): 6 (met) Upper Body Dressing(FIM): 6 (met) Upper Body Dressing (QC): 6 (met) Lower Body Dressing(FIM): 6 (met) Lower Body Dressing (QC): 6 (met) On/Off Footwear (QC): 6 (met) Toileting(FIM): 6 (met) Toileting Hygiene (QC): 6 (met) Toilet/Commode Transfer(FIM): 6 (met) Toilet/Commode Transfer (QC): 6 (met) Shower Transfer(FIM): 5 (met) Additional Goals: 1-Demonstrate ADL Tasks, 2-Verbalize Understanding, 3- ImproveStrength/[place] 1=Demonstrate adherence to instructed precautions during ADL tasks. 2=Patient will verbalize/demonstrate understanding of assistive devices/ modifications for ADL. 3=Patient will improve strength/tolerance for activity to enable patient to perform ADL's. Speech Fdc Goals Die Repair Goals Skilled ST is not indicated at this time. KAROL SIMENTAL OT Mar 18, 2018 07:55
[2018-03-18 08:25] VITALS: BP 150/84
[2018-03-18] MEDS: guaiFENesin (MUCINEX) 600 MG TAB PO SCH (08:36)
[2018-03-18] MEDS: lisINopril 40 MG (PRINIVIL) TABLET PO SCH (08:37)
[2018-03-18] MEDS: HYDROCHLOROTHIAZIDE 25 MG (HCTZ) TAB PO SCH (08:37)
[2018-03-18] MEDS: meTOproloL SUCCINATE 50 MG (TOPROL XL) TAB PO SCH (08:37)
[2018-03-18] MEDS: CLOPIDOGREL 75 MG (PLAVIX) TABLET PO SCH (08:37)
[2018-03-18] MEDS: ASPIRIN E.C. 81 MG (ECOTRIN) TAB PO SCH (08:37)
[2018-03-18] MEDS: OXYBUTYNIN (DITROPAN) 5 MG TAB PO SCH (08:37)
[2018-03-18] MEDS: FAMOTIDINE 20 MG (PEPCID) TABLET PO SCH (08:37)
[2018-03-18] MEDS: LIFITEGRAST EYE OU SCH (08:51)
[2018-03-18] MEDS: SALINE NASAL SPRAY (OCEAN) 45 ML BTL SCH (08:51)
[2018-03-18] MEDS: INSULIN DEGLUDEC SQ SCH (08:53)
[2018-03-18] MEDS: LIRAGLUTIDE SQ SCH (08:53)
[2018-03-18] MEDS: [UNRECOGNIZED DRUG - OTHER] SQ SCH (08:53)
--- NOTE | 2018-03-18 08:54 | Physical Therapy Daily Note ---
PT Daily Note-Current Subjective Reports she is going home today and is very excited about it! Mental Status Patient Orientation: Person, Place, Time, Situation Transfers Functional [place] Measure 0=Not Assessed/NA 4=Minimal Assistance 1=Total Assistance 5=Supervision or Setup 2=Maximal Assistance 6=Modified [place] 3=Moderate Assistance 7=Complete IndependenceIRFPAI Quality Coding Scale 6 Independent with activity with or without an assistive device 5 Patient requires set up or clean up by helper. Patient completes activity by themselves 4 Supervision or touching assist (CGA). [place] provide cues , steadying assist 3 The helper provides less than half the effort to complete the activity 2 The helper provides more than half the effort to complete the activity 1 Dependent. The helper does all the effort to complete an activity 7 Patient refused to complete or attempt activity 9 The patient did not perform the activity before the current illness or injury 88 Not attempted due to Medical conditions or safety concerns Transfers (B, C, W/C) (FIM): 7 Roll Left to Right (QC): 6 Supine to/from Sit: 7 Sit to/from Stand: 7 Sit to Lying (QC): 6 Sit to Stand (QC): 6 Chair/Mis-bx-Ubgmj Xfer(QC): 6 Car Transfer (QC): 6 Pt is indep with all transfers. she is slow and cautious. Weight Bearing Right Lower Extremity: Right Full Weight Bearing Left Lower Extremity: Left Full Weight Bearing Gait Training Does the Patient Walk?: Yes Gait (FIM): 6 Distance (FIM): 3=150 ft Distance: 200 ft x 2; 10 ft and 50 ft Walk 10 feet (QC): 6 Walk 50 ft with 2 Turns(QC): 6 Walk 150 ft (QC): 6 Walking 10ft/uneven surface-QC: 6 Gait Assistive Device: FWW Mod indep gait; pt does focus on DF on the left to clear the floor effectively. Wheelchair Training Does the Pt Use a Wheelchair?: No Stair Training Stair Training: Handrails/: 2 handrails Stairs (FIM): 6 (takes extra time) #of Steps: 12 1 Step (curb) (QC): 6 4 Steps (QC): 6 12 Steps (QC): 6 Stairs: Pattern: Step to Balance Picking up an Object (QC): 4 Treatments Gait, safety and collection of FIM scores. Assessment Current Status: Excellent Progress Pt has made excellent progress. Meeting ARU goals. To discharge today and recommend continued care on an outpt basis. PT Usp Goals Usp Goals PT Usp Goals Time Frame: Mar 26, 2018 Transfers (B,C,W/C) (FIM): 7 (met) Sit to Lying (QC): 6 (met) Lying-Sitting on Side/Bed(QC): 6 (met) Sit to Stand (QC): 6 (met) Rollin (met) Roll Left to Right (QC): 6 (met) Chair/Gcs-ly-Hvcuz Xfer(QC): 6 (met) Car Transfer (QC): 6 (met) Does the Patient Walk: Yes Gait (FIM): 6 (met) Gait distance (FIM): 3=150 ft Distance: 300' Walk 10 feet (QC): 6 (met) Walk 10ft-Uneven Surface(QC): 6 (met) Walk 50ft with 2 Turns (QC): 6 (met) Walk 150 ft (QC): 6 (met) Gait Level of Assist: 6 Gait Assistive Device: FWW Does the Pt use WC or Scooter?: No Stairs (FIM): 6 (met) # of Steps: 12 1 Step (curb) (QC): 6 4 Steps (QC): 6 (mt) 12 Steps (QC): 6 (met) Stairs Level Of Assist: 6 Picking up an Object (QC): 6 (unmet) pt has met all goals to a satisfactory level PT Plan Treatment/Plan Treatment Plan: Discontinue PT, goals met Treatment Plan: Bed Mobility, Education, Functional Activity [place], Functional Strength, Group Therapy, Gait, Safety, Therapeutic Exercise, Transfers Treatment Duration: Mar 26, 2018 Frequency: At least 5 of 7 days/Wk (IRF) Estimated Hrs Per Day: 1.5 hours per day Patient and/or Family Agrees t: Yes Safety Risks/Education Patient Education: Safety Issues Teaching Recipient: Patient Teaching Methods: Discussion Response to Teaching: Verbalize Understanding, Return Demonstration Discharge Recommendations Therapy D/C Recommendations: Physical Therapy Outpatient Time/GCodes Time In: 815 Time Out: 845 Total Billed Treatment Time: 30 Total Billed Treatment visit FA 30 BRINDA VIVAR PT Mar 18, 2018 08:54
--- NOTE | 2018-03-18 09:05 | Therapy Team Discharge Summary ---
Therapy Discharge Summary Discharge Recommendations Date of Discharge Therapy D/C Recommendations: Physical Therapy Outpatient Physical Therapy This patient was transferred to ARU post acute hospital stay due to a CVA. 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 Upon admit to ARU, she presented with left sided weakness that impaired her mobility rendering her to require min assist with gait and transfers and needing assist to go up/down a step. Treatment has focused on functional gait and transfers using ther ex and balance activities to progress. We have spent much time educating on safety awareness and slowing down to complete tasks. Her DF on the left is weak, thus we have addressed being aware of this during gait to improve toe clearance, which she is doing well. She is indep to mod indep with all functional mobility but does still have strength deficits and is using an AD. Recommend continued therapy services on an outpt level. Will DC from ARU at this time. She has made excellent progress. Occupational Therapy Decreased Activ Tolerance, Impaired Coordination PT Halfway Goals Shank Scourer Goals PT Shank Scourer Goals Time Frame: Mar 26, 2018 Transfers (B,C,W/C) (FIM): 7 (met) Roll Left to Right (QC): 6 (met) Sit to Lying (QC): 6 (met) Lying-Sitting on Side/Bed(QC): 6 (met) Sit to Stand (QC): 6 (met) Chair/Xbn-ur-Zqbjr Xfer(QC): 6 (met) Car Transfer (QC): 6 (met) Does the Patient Walk: Yes Gait (FIM): 6 (met) Gait distance (FIM): 3=150 ft Distance: 300' Walk 10 feet (QC): 6 (met) Walk 10ft-Uneven Surface(QC): 6 (met) Walk 50ft with 2 Turns (QC): 6 (met) Walk 150 ft (QC): 6 (met) Gait Level of Assist: 6 Gait Assistive Device: FWW Does the Pt use WC or Scooter?: No Stairs (FIM): 6 (met) # of Steps: 12 1 Step (curb) (QC): 6 4 Steps (QC): 6 (mt) 12 Steps (QC): 6 (met) Stairs Level Of Assist: 6 Picking up an Object (QC): 6 (unmet) All goals met to a satisfactory level OT Shank Scourer Goals Shank Scourer Goals Time Frame: Apr 02, 2018 Eating (FIM): 7 (met) Eating (QC): 6 (met) Oral Hygiene (QC): 6 (met) Grooming(FIM): 6 (met) Bathing(FIM): 6 (met) Shower/Bathe Self (QC): 6 (met) Upper Body Dressing(FIM): 6 (met) Upper Body Dressing (QC): 6 (met) Lower Body Dressing(FIM): 6 (met) Lower Body Dressing (QC): 6 (met) On/Off Footwear (QC): 6 (met) Toileting(FIM): 6 (met) Toileting Hygiene (QC): 6 (met) Toilet/Commode Transfer(FIM): 6 (met) Toilet/Commode Transfer (QC): 6 (met) Shower Transfer(FIM): 5 (met) Additional Goals: 1-Demonstrate ADL Tasks, 2-Verbalize Understanding, 3- ImproveStrength/Yocasta 1=Demonstrate adherence to instructed precautions during ADL tasks. 2=Patient will verbalize/demonstrate understanding of assistive devices/ modifications for ADL. 3=Patient will improve strength/tolerance for activity to enable patient to perform ADL's. Speech Shank Scourer Goals Shank Scourer Goals Skilled ST is not indicated at this time. BRINDA VIVAR PT Mar 18, 2018 09:05
[2018-03-18 10:30] VITALS: BP 150/84
== END 2018-03-18 10:30 | disposition home or self-care (01) | DRG 57 ==
PROVIDERS: ADMIT Physical Medicine & Rehabilitation; ATTEND Physical Medicine & Rehabilitation
DX: I69.354 Hemiplegia and hemiparesis following cerebral infarction affecting left non-dominant side (principal); I10 Essential (primary) hypertension; E11.9 Type 2 diabetes mellitus without complications; E78.5 Hyperlipidemia, unspecified; E03.9 Hypothyroidism, unspecified; F32.9 Major depressive disorder, single episode, unspecified; J30.9 Allergic rhinitis, unspecified; Z79.4 Long term (current) use of insulin
CPT/HCPCS: 82962

== ENCOUNTER 2018-03-23 10:55 | Outpatient (CLI) | payer BC ==
[~2018-03-23 10:55] MED LIST changes: +LISI40TA PO
== END 2018-03-23 11:15 | disposition home or self-care (01) ==
LOC: SLEEP 10:55
PROVIDERS: ATTEND Family Medicine
DX: G47.10 Hypersomnia, unspecified (principal); Z86.73 Personal history of transient ischemic attack (TIA), and cerebral infarction without residual deficits; G47.36 Sleep related hypoventilation in conditions classified elsewhere; I10 Essential (primary) hypertension; R06.83 Snoring

== ENCOUNTER → 2018-03-31 | Day surgery (SDC) | payer BC ==
[2018-03-31] VITALS (9 sets, daily range): BP systolic 124–194; BP diastolic 68–101
[~2018-03-31] VITALS: Ht 167.6 cm; Wt 82.6 kg
[~2018-03-31] MED LIST changes: +LIDOCAINE 2% VISCOUS 15 ML UDC ONE; +LIDOCAINE 2% VISCOUS 15 ML UDC PO ONE; +MIDAZOLAM 5 MG/5 ML (VERSED) VIAL ONE; +NS IV 1000 ML 1,000 ML IV ONE; +NS IV 1000 ML 1,000 ML ONE; +fentaNYL INJECTION 100 MCG/2 ML AMP ONE
--- OUTSIDE RECORDS SUMMARY | 2018-03-31 09:04 | XMS REPORT | Clinical Summary ---
Author Author [facility] Organization [facility] Address Unknown Phone Unavailable Care Team Providers Care Auctioneer Tobacco Name Role Phone PCP Unavailable Allergies No [...]
--- OUTSIDE RECORDS SUMMARY | 2018-03-31 09:05 | XMS REPORT | Clinical Summary ---
Author Author [facility] Organization [facility] Address Unknown Phone Unavailable Care Team Providers Care Financial Manager Name Role Phone Torrey Mccabe MD Unavailable Eleonora Curran MD PCP Source Comments Some departments are not documenting in the electronic medical record. 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 OFFICER Pulse 96 05/10/2014 1:13 PM [employer] OFFICER Temperature 36.9 C (98.5 F) 05/10/2014 1:10 PM [employer]ING OFFICER Respiratory Rate 18 05/10/2014 1:10 PM [employer] D[employer]ING OFFICER Oxygen Saturation - - Inhaled Oxygen - - Concentration Weight 95.1 kg (209 lb 9.6 oz) 05/10/2014 1:10 PM [employer] D[employer]ING OFFICER Height - - Body Mass Index - - Plan of Treatment Health Maintenance Due Date Last Done Comments HEPATITIS C SCREENING 1962 PHYSICAL (COMPREHENSIVE) 1969 EXAM HIV SCREENING 1977 DTAP/TDAP VACCINES (1 - 1980 Tdap) CERVICAL CANCER SCREENING 1992 BREAST CANCER SCREENING 2002 COLORECTAL CANCER 2012 SCREENING SHINGLES RECOMBINANT 2012 VACCINE (1 of 2) INFLUENZA VACCINE 11/25/2017 Results Not on filefrom Last 3 Months
--- OUTSIDE RECORDS SUMMARY | 2018-03-31 09:10 | XMS REPORT | CCD ---
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 ICD-9: 434.01 ICD-10: I63.341 Active 03/29/2018 Unknown Essential (primary) hypertension ICD-9: 401.1 ICD-10: I10 Active 01/06/2016 Unknown Generalized anxiety disorder ICD-9: 300.02 ICD-10: F41.1 Active 06/08/2017 Unknown Type 2 diabetes mellitus with hyperglycemia ICD-9: 250.02 ICD-10: E11.65 Active 10/10/2013 Unknown Actinic keratosis ICD- 9: 702.0 ICD-10: L57.0 Active 02/22/2018 Unknown Major depressive disorder, single episode, moderate ICD-9: 296.22 ICD-10: F32.1 Active 06/08/2017 Unknown Other acute sinusitis ICD-9: 461.8 ICD-10: J01.80 Active 02/22/2018 Unknown Other allergic rhinitis ICD-9: 477.8 ICD-10: J30.89 Active 10/01/2017 Unknown Pain in left forearm ICD-9: 729.5 ICD-10: M79.632 Active 02/22/2018 Unknown Other specified hypothyroidism ICD-9: 244.8 ICD-10: E03.8 Active 01/07/2018 Unknown VACCIN FOR INFLUENZA ICD-9: V04.81 ICD-10: Z23 Active 01/05/2014 Unknown Hypothyroidism, unspecified ICD-9: 244.9 ICD-10: E03.9 [...] Problems Condition Codes Effective Dates Condition Status 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 ICD-9: 434.01 ICD-10: I63.341 03/29/2018 Active Essential (primary) hypertension ICD-9: 401.1 ICD-10: I10 01/06/2016 Active Generalized anxiety disorder ICD-9: 300.02 ICD-10: F41.1 06/08/2017 Active Type 2 diabetes mellitus with hyperglycemia ICD-9: 250.02 ICD-10: E11.65 10/10/2013 Active Actinic keratosis ICD- 9: 702.0 ICD-10: L57.0 02/22/2018 Active Major depressive disorder, single episode, moderate ICD-9: 296.22 ICD-10: F32.1 06/08/2017 Active Other acute sinusitis ICD-9: 461.8 ICD-10: J01.80 02/22/2018 Active Other allergic rhinitis ICD-9: 477.8 ICD-10: J30.89 10/01/2017 Active Pain in left forearm ICD-9: 729.5 ICD-10: M79.632 02/22/2018 Active Other specified hypothyroidism ICD-9: 244.8 ICD-10: E03.8 01/07/2018 Active VACCIN FOR INFLUENZA ICD-9: V04.81 ICD-10: Z23 01/05/2014 Active Hypothyroidism, unspecified ICD-9: 244.9 ICD-10: E03.9 [...] Start Date Stop Date Status Fill Instructions metoprolol succinate ER 50 mg tablet,extended release 24 hr RxNorm: 483097 TAKE 1 TABLET BY MOUTH ONCE DAILY 03/29/2018 No Stop Date Active Prozac 40 mg capsule RxNorm: 089729 1 Capsule(s) PO daily 03/0504/03/2018 Active Prozac 40 mg capsule RxNorm: 719718 1 Capsule(s) PO daily 03/0503/04/2018 Inactive amoxicillin 500 mg capsule RxNorm: 992233 1 Capsule(s) PO TID 02/22/2018 02/28/2018 Inactive Kenalog 40 mg/mL suspension for injection RxNorm: 6719714 Milliliter(s) Inj 02/22/2018 02/22/2018 Inactive Prozac 20 mg capsule RxNorm: 060385 1 Capsule(s) PO daily 02/2203/01/2018 Inactive Diflucan 150 mg tablet RxNorm: 956635 1 Tablet(s) PO daily 02/26/2018 Inactive levothyroxine 88 mcg tablet RxNorm: 724633 TAKE 1 TABLET BY MOUTH ONCE DAILY 02/15/2018 No Stop Date Active Cymbalta 60 mg capsule,delayed release RxNorm: 233780 TAKE 1 CAPSULE BY MOUTH ONCE DAILY 02/15/2018 No Stop Date Active Diflucan 150 mg tablet RxNorm: 386566 1 Tablet(s) PO daily No Stop Date Active Xultophy 100/3.6 100 unit-3.6 mg/mL (3 mL) subcutaneous insulin pen RxNorm: 6943158 30 Unit(s) SQ daily 01/07/20182017 Inactive Xultophy 100/3.6 100 unit-3.6 mg/mL (3 mL) subcutaneous insulin pen RxNorm: 2613516 22 Unit(s) SQ daily 12/03/20172017 Inactive Xultophy 100/3.6 100 unit-3.6 mg/mL (3 mL) subcutaneous insulin pen RxNorm: 9360283 20 Unit(s) SQ daily 11/27/20172017 Inactive Xultophy 100/3.6 100 unit-3.6 mg/mL (3 mL) subcutaneous insulin pen RxNorm: 7695040 20 Unit(s) SQ daily 11/27/20172017 Inactive Xultophy 100/3.6 100 unit-3.6 mg/mL (3 mL) subcutaneous insulin pen RxNorm: 3816495 16 Unit(s) SQ daily 10/26/20172017 Inactive Xultophy 100/3.6 100 unit-3.6 mg/mL (3 mL) subcutaneous insulin pen RxNorm: 1013414 16 Unit(s) SQ daily 10/26/20172017 Inactive potassium chloride ER 10 mEq tablet,extended release RxNorm: 582552 1 Tablet(s) PO TIW 10/21/2017 10/15/2018 Active Diflucan 150 mg tablet RxNorm: 493130 TAKE ONE TABLET BY MOUTH ONCE DAILY 10/21/2017 01/06/2018 Inactive Cymbalta 60 mg capsule,delayed release RxNorm: 338980 1 Capsule(s) PO daily 10/07/2017 02/03/2018 Inactive potassium chloride ER 10 mEq tablet,extended release RxNorm: 427082 TAKE ONE TABLET BY MOUTH TWICE A WEEK 10/07/2017 Inactive Lipitor 20 mg tablet RxNorm: 563957 TAKE ONE TABLET BY MOUTH ONCE DAILY IN THE EVENING 09/04/2017 No Stop Date Active metoprolol succinate ER 50 mg tablet,extended release 24 hr RxNorm: 220903 TAKE ONE TABLET BY MOUTH ONCE DAILY 09/04/2017 03/28/2018 Inactive Victoza 3-To 0.6 mg/0.1 mL (18 mg/3 mL) subcutaneous pen injector RxNorm: 176866 Milligram(s) SQ 09/02/2017 05/24/2019 Active Diflucan 150 mg tablet RxNorm: 333672 TAKE ONE TABLET BY MOUTH ONCE DAILY 09/02/2017 10/20/2017 Inactive potassium chloride ER 10 mEq tablet,extended release RxNorm: 191171 TAKE ONE TABLET BY MOUTH TWICE A WEEK 08/10/2017 Inactive levothyroxine 88 mcg tablet RxNorm: 548109 TAKE ONE TABLET BY MOUTH ONCE DAILY 08/10/2017 02/14/2018 Inactive Diflucan 150 mg tablet RxNorm: 886808 1 Tablet(s) PO daily 07/20/2017 Inactive Diflucan 150 mg tablet RxNorm: 526263 1 Tablet(s) PO daily 07/09/2017 Inactive Cymbalta 60 mg capsule,delayed release RxNorm: 896942 1 Capsule(s) PO daily 07/10/2017 07/09/2017 Inactive Cymbalta 60 mg capsule,delayed release RxNorm: 922786 1 Capsule(s) PO daily 07/10/2017 10/06/2017 Inactive Diflucan 150 mg tablet RxNorm: 888204 1 Tablet(s) PO daily 07/14/2017 Inactive Wellbutrin XL 150 mg 24 hr tablet, extended release RxNorm: 709336 1 Tablet(s) PO daily 06/08/2017 07/09/2017 Inactive Victoza 3-To 0.6 mg/0.1 mL (18 mg/3 mL) subcutaneous pen injector RxNorm: 963207 Milligram(s) SQ 06/08/2017 09/01/2017 Inactive Initiate at 0.6 mg per day for one week then increase to 1.2 mg. Dispense qty sufficient hydrochlorothiazide 25 mg tablet RxNorm: 917267 TAKE ONE TABLET BY MOUTH ONCE DAILY 05/25/2017 No Stop Date Active citalopram 40 mg tablet RxNorm: 410214 TAKE ONE TABLET BY MOUTH ONCE DAILY 05/13/2017 07/09/2017 Inactive potassium chloride ER 10 mEq tablet,extended release RxNorm: 393837 TAKE ONE TABLET BY MOUTH TWICE A WEEK 03/25/2017 Inactive hydrochlorothiazide 25 mg tablet RxNorm: 273734 TAKE ONE TABLET BY MOUTH ONCE DAILY 02/23/2017 05/24/2017 Inactive levothyroxine 88 mcg tablet RxNorm: 829593 TAKE ONE TABLET BY MOUTH ONCE DAILY 01/28/2017 07/26/2017 Inactive Trulicity 1.5 mg/0.5 mL subcutaneous pen injector RxNorm: 4866425 INJECT ONE SYRINGE SUBCUTANEOUSLY ONCE A WEEK 01/27/2017 07/09/2017 Inactive Diflucan 150 mg tablet RxNorm: 219824 1 Tablet(s) PO daily 12/31/2016 Inactive Invokana 100 mg tablet RxNorm: 9314724 1 Tablet(s) PO daily 11/201602/03/2017 Inactive Invokana 100 mg tablet RxNorm: 7609100 1 Tablet(s) PO daily 11/201612/01/2016 Inactive potassium chloride ER 10 mEq tablet,extended release RxNorm: 677208 1 Tablet(s) PO BIW 11/17/2016 11/16/2016 Inactive metformin 500 mg tablet RxNorm: 097986 1 Tablet(s) PO BID 11/1712/01/2016 Inactive potassium chloride ER 10 mEq tablet,extended release RxNorm: 971034 1 Tablet(s) PO BIW 11/17/2016 11/16/2016 Inactive potassium chloride ER 10 mEq tablet,extended release RxNorm: 230485 1 Tablet(s) PO 2 times weekly 11/17/2016 10/06/2017 Inactive Diflucan 150 mg tablet RxNorm: 423940 1 Tablet(s) PO daily 09/18/2016 Inactive Diflucan 150 mg tablet RxNorm: 370436 1 Tablet(s) PO daily 09/23/2016 Inactive amoxicillin 500 mg tablet RxNorm: 599622 1 Tablet(s) PO BID 09/25/2016 Inactive metoprolol succinate ER 50 mg tablet,extended release 24 hr RxNorm: 353103 Tablet (s) TAKE ONE TABLET BY MOUTH ONCE DAILY 08/11/2016 08/05/2017 Inactive Lipitor 20 mg tablet RxNorm: 001389 1 Tablet(s) PO QPM 201609/03/2017 Inactive Questran Light 4 gram oral powder RxNorm: 1121717 1 PO TID 05/25/2017 Inactive Trulicity 1.5 mg/0.5 mL subcutaneous pen injector RxNorm: 4444126 0.5 Milliliter(s ) SQ QW 08/11/2016 01/07/2017 Inactive levothyroxine 88 mcg tablet RxNorm: 555889 TAKE ONE TABLET BY MOUTH ONCE DAILY 07/28/2016 01/23/2017 Inactive Trulicity 0.75 mg/0.5 mL subcutaneous pen injector RxNorm: 9293320 INJECT THREE- FOURTHS MG(S) SUBCUTANEOUSLY ONCE A WEEK 07/01/2016 08/10/2016 Inactive metoprolol succinate ER 50 mg tablet,extended release 24 hr RxNorm: 221870 TAKE ONE TABLET BY MOUTH ONCE DAILY 06/11/2016 08/09/2016 Inactive citalopram 40 mg tablet RxNorm: 202810 TAKE ONE TABLET BY MOUTH ONCE DAILY 04/14/2016 05/12/2017 Inactive Diflucan 150 mg tablet RxNorm: 986119 1 Tablet(s) PO daily 01/24/2016 Inactive hydrochlorothiazide 25 mg tablet RxNorm: 143910 Tablet(s) 1 TABLET(S) PO DAILY 01/25/2016 01/18/2017 Inactive Diflucan 150 mg tablet RxNorm: 756225 1 Tablet(s) PO daily 01/31/2016 Inactive Zithromax Z-To 250 mg tablet RxNorm: 374790 1 Tablet(s) PO daily 01/24/2016 01/23/2016 Inactive zrick Zithromax Z-To 250 mg tablet RxNorm: 929252 1 Tablet(s) PO daily 01/24/2016 01/28/2016 Inactive igor prednisone 10 mg tablets in a dose pack RxNorm: 245390 1 Tablet(s) PO as directed 01/24/2016 01/31/2016 Inactive 6-5-4-3-2-1 Kenalog 40 mg/mL suspension for injection RxNorm: 6934186 Milliliter(s) Inj 01/22/2016 01/22/2016 Inactive prednisone 20 mg tablet RxNorm: 525915 2 Tablet(s) PO daily 01/24/2016 Inactive start tomorrow Trulicity 0.75 mg/0.5 mL subcutaneous pen injector RxNorm: 2594683 0.75 Milligram( s) SQ QW 01/18/2016 06/30/2016 Inactive levothyroxine 88 mcg tablet RxNorm: 836209 TAKE ONE TABLET BY MOUTH ONCE DAILY 01/17/2016 07/14/2016 Inactive Trulicity 0.75 mg/0.5 mL subcutaneous pen injector RxNorm: 0819714 0.75 Milligram( s) SQ QW 12/03/2015 01/01/2016 Inactive Vimovo 500 mg-20 mg tablet,immediate and delay release RxNorm: 758118 1 Tablet(s) PO BID 12/03/2015 03/30/2016 Inactive metoprolol succinate ER 50 mg tablet,extended release 24 hr RxNorm: 966959 1 Tablet(s) PO daily 10/23/2015 05/19/2016 Inactive Trulicity 0.75 mg/0.5 mL subcutaneous pen injector RxNorm: 9683970 0.75 Milligram( s) SQ QW 09/17/2015 10/16/2015 Inactive Victoza 3-To 0.6 mg/0.1 mL (18 mg/3 mL) subcutaneous pen injector RxNorm: 263985 1.8 MILLIGRAM(S) SQ DAILY 07/16/201509/15 Inactive this is just a correction of her current dosing - she does not need a refill levothyroxine 88 mcg tablet RxNorm: 708097 1 TABLET(S) PO DAILY 07/16/2015 01/11/2016 Inactive metoprolol succinate ER 50 mg tablet,extended release 24 hr RxNorm: 614015 1 Tablet(s) PO daily 05/29/2015 10/22/2015 Inactive levothyroxine 88 mcg tablet RxNorm: 918719 1 Tablet(s) PO daily 04/17/2015 07/15/2015 Inactive levothyroxine 88 mcg tablet RxNorm: 711265 1 Tablet(s) PO daily 04/17/2015 04/16/2015 Inactive citalopram 40 mg tablet RxNorm: 263096 1 Tablet(s) PO daily 04/13/2016 Inactive metoprolol tartrate 25 mg tablet RxNorm: 842131 1 Tablet(s) BID 01/17/2015 05/28/2015 Inactive hydrochlorothiazide 25 mg tablet RxNorm: 411942 1 TABLET(S) PO DAILY 01/01/2015 12/26/2015 Inactive Kenalog 40 mg/mL suspension for injection RxNorm: 7160424 Milliliter(s) Inj 11/23/2014 11/23/2014 Inactive Kenalog 40 mg/mL suspension for injection RxNorm: 1556880 60 Milliliter(s) Inj 11/22/2014 11/22/2014 Inactive Zyrtec 10 mg tablet RxNorm: 9985984 1 Tablet(s) PO daily 11/2212/21/2014 Inactive prednisone 10 mg tablets in a dose pack RxNorm: 932439 1 Tablet(s) PO as directed 11/22/2014 05/28/2015 Inactive 6-5-4-3-2-1 Flagyl 500 mg tablet RxNorm: 665662 1 Tablet(s) PO TID 201411/20/2014 Inactive metoprolol tartrate 25 mg tablet RxNorm: 867002 1 Tablet(s) PO BID 09/06/2014 08/10/2016 Inactive metoprolol tartrate 25 mg tablet RxNorm: 183822 1 TABLET(S) PO BID PT TO START WITH 1/2 PILL TWICE DAILY X 1 WEEK, THEN INCREASE TO 1 PILL BID THEREAFTER 09/06/2014 01/16/2015 Inactive citalopram 20 mg tablet RxNorm: 553917 1 Tablet(s) PO daily 02/201503/13/2015 Inactive Victoza 3-To 0.6 mg/0.1 mL (18 mg/3 mL) subcutaneous pen injector RxNorm: 141220 1.8 MILLIGRAM(S) SQ DAILY 09/04/201405/31 Inactive this is just a correction of her current dosing - she does not need a refill metoprolol tartrate 25 mg tablet RxNorm: 711949 1 Tablet(s) PO BID pt to start with 1/2 pill twice daily x 1 week, then increase to 1 pill bid thereafter 08/04/2014 09/02/2014 Inactive Lantus Solostar 100 unit/mL (3 mL) subcutaneous insulin pen RxNorm: 917888 Unit( s) INJECT 10 UNITS SUBCUTANEOUSLY DAILY. DOCTOR WILL ADJUST MEDICATION BASED ON BLOOD GLUCOSE LEVELS 08/04/20142014 Inactive hydrochlorothiazide 25 mg tablet RxNorm: 720982 1 TABLET(S) PO DAILY 07/12/2014 01/24/2016 Inactive hydrochlorothiazide 25 mg tablet RxNorm: 563266 1 Tablet(s) PO daily 07/12/2014 12/31/2014 Inactive acyclovir 400 mg tablet RxNorm: 388948 1 Tablet(s) PO QID 05/0905/08/2014 Inactive acyclovir 400 mg tablet RxNorm: 602775 1 Tablet(s) PO QID 05/0905/15/2014 Inactive alprazolam 0.25 mg tablet RxNorm: 901757 TAKE 1 TABLET BY MOUTH TWICE DAILY NEEDED FOR ANXIETY 04/24/2014 05/23/2014 Inactive (Response to an electronic controlled substance refill request - [facility] [id number]|0|1) metoprolol succinate ER 100 mg tablet,extended release 24 hr RxNorm: 254456 1 TABLET(S) PO DAILY TAKE 1 TABLET BY MOUTH DAILY 04/24/2014 08/03/2014 Inactive Cardizem LA 360 mg tablet,extended release RxNorm: 906436 1 TABLET(S) PO DAILY TAKE 1 TABLET BY MOUTH DAILY 04/24/2014 Inactive metformin ER 500 mg 24 hr tablet,extended release RxNorm: 055137 1 Tablet(s) PO daily 04/11/2014 08/03/2014 Inactive Lantus Solostar 100 unit/mL (3 mL) subcutaneous insulin pen RxNorm: 234823 INJECT 40 UNITS SUBCUTANEOUSLY DAILY. DOCTOR WILL ADJUST MEDICATION BASED ON BLOOD GLUCOSE LEVELS 03/20/20142014 Inactive Bentyl 10 mg capsule RxNorm: 243914 1 Capsule(s) PO TID PRN 02/201405/28/2015 Inactive potassium chloride ER 10 mEq tablet,extended release RxNorm: 624143 1 Tablet(s) PO daily 01/05/2014 01/11/2014 Inactive Lantus Solostar 100 unit/mL (3 mL) subcutaneous insulin pen RxNorm: 664208 45 Unit(s) SQ daily doctor to adjust medications based on blood glucose results 01/05/2014 12/02/2015 Inactive Diovan 320 mg tablet RxNorm: 895352 1 Tablet(s) PO daily 201308/03/2014 Inactive metformin ER 1,000 mg tablet,extended release 24hr RxNorm: 928651 1 Tablet(s) PO daily 10/26/2013 04/10/2014 Inactive Lantus Solostar 100 unit/mL (3 mL) subcutaneous insulin pen RxNorm: 168337 40 Unit(s) SQ daily doctor to adjust medications based on blood glucose results 10/10/2013 01/04/2014 Inactive alprazolam 0.25 mg tablet RxNorm: 220492 1 Tablet(s) PO BID 04/24/2014 Inactive Percocet 5 mg-325 mg tablet RxNorm: 6586018 1-2 Tablet(s) PO Q6 PRN 10/03/2013 05/28/2015 Inactive Celexa 40 mg tablet RxNorm: 950163 Tablet(s) PO TAKE 1 TABLET BY MOUTH DAILY 09/28/2013 09/03/2014 Inactive hydrochlorothiazide 25 mg tablet RxNorm: 971221 1 Tablet(s) PO daily 09/22/2013 06/18/2014 Inactive Lantus Solostar 100 unit/mL (3 mL) subcutaneous insulin pen RxNorm: 464290 35 Unit(s) SQ daily doctor to adjust medications based on blood glucose results 08/02/2013 10/09/2013 Inactive Cardizem LA 360 mg tablet,extended release RxNorm: 733765 1 Tablet(s) PO daily TAKE 1 TABLET BY MOUTH DAILY 07/18/2013 Inactive Cardizem LA 360 mg tablet,extended release RxNorm: 550069 Tablet(s) PO TAKE 1 TABLET BY MOUTH DAILY 07/18/20132014 Inactive metoprolol succinate ER 100 mg tablet,extended release 24 hr RxNorm: 347199 1 Tablet(s) PO daily TAKE 1 TABLET BY MOUTH DAILY 07/18/2013 04/13/2014 Inactive metoprolol succinate ER 100 mg tablet,extended release 24 hr RxNorm: 585744 Tablet (s) PO TAKE 1 TABLET BY MOUTH DAILY 07/18/2013 08/03/2014 Inactive Lantus Solostar 100 unit/mL (3 mL) subcutaneous insulin pen RxNorm: 761284 30 Unit(s) SQ daily doctor to adjust medications based on blood glucose results 07/04/2013 08/01/2013 Inactive Victoza 3-To 0.6 mg/0.1 mL (18 mg/3 mL) subcutaneous pen injector RxNorm: 353973 1.8 Milligram(s) SQ daily 06/30/201303/26 Inactive this is just a correction of her current dosing - she does not need a refill metformin ER 1,000 mg tablet,extended release 24hr RxNorm: 321551 1 Tablet(s) PO daily 06/30/2013 10/25/2013 Inactive Lantus Solostar 100 unit/mL (3 mL) subcutaneous insulin pen RxNorm: 767313 20 Unit(s) SQ daily doctor to adjust medications based on blood glucose results 06/30/2013 07/03/2013 Inactive Lantus Solostar 100 unit/mL (3 mL) subcutaneous insulin pen RxNorm: 200193 15 Unit(s) SQ daily doctor to adjust medications based on blood glucose results 06/23/2013 06/29/2013 Inactive Victoza 3-To 0.6 mg/0.1 mL (18 mg/3 mL) subcutaneous pen injector RxNorm: 184363 3mg Milliliter(s) SQ daily 90 days worth 06/20/2013 06/29/2013 Inactive hydrochlorothiazide 25 mg tablet RxNorm: 206238 1 Tablet(s) PO daily 06/13/2013 09/21/2013 Inactive ketorolac 60 mg/2 mL intramuscular solution RxNorm: 811188 2 Milliliter(s) IM 06/06/2013 06/06/2013 Inactive Lantus Solostar 100 unit/mL (3 mL) subcutaneous insulin pen RxNorm: 454581 10 Unit(s) SQ daily doctor to adjust medications based on blood glucose results 06/06/2013 06/22/2013 Inactive naproxen 500 mg tablet RxNorm: 722626 1 Tablet(s) PO BID 201308/04/2013 Inactive hydrochlorothiazide 25 mg tablet RxNorm: 988986 1 Tablet(s) PO daily 06/06/2013 06/12/2013 Inactive Victoza 3-To 0.6 mg/0.1 mL (18 mg/3 mL) subcutaneous pen injector RxNorm: 073738 3mg Milliliter(s) SQ daily 90 days worth 05/19/2013 06/19/2013 Inactive Diflucan 150 mg tablet RxNorm: 497828 1 Tablet(s) PO daily 05/12/2013 Inactive Diflucan 150 mg tablet RxNorm: 101975 1 Tablet(s) PO daily 05/19/2013 Inactive Cardizem LA 360 mg tablet,extended release RxNorm: 532325 Tablet(s) PO TAKE 1 TABLET BY MOUTH DAILY 04/22/20132013 Inactive metoprolol succinate ER 100 mg tablet,extended release 24 hr RxNorm: 127377 Tablet (s) PO TAKE 1 TABLET BY MOUTH DAILY 04/14/2013 07/17/2013 Inactive Diflucan 150 mg tablet RxNorm: 460218 1 Tablet(s) PO daily 03/28/2013 Inactive Diflucan 150 mg tablet RxNorm: 514426 1 Tablet(s) PO daily 03/21/2013 Inactive Diovan 320 mg tablet RxNorm: 684362 1 Tablet(s) PO daily 201212/09/2013 Inactive cefdinir 300 mg capsule RxNorm: 986255 1 Capsule(s) PO BID 02/25/2013 Inactive Phenergan with Codeine Syrup RxNorm: 5-10 Milliliter(s) PO Q6 PRN USE PRN FOR COUGH 02/21/2013 03/20/2013 Inactive 8 OUNCES Victoza 3-Ot 0.6 mg/0.1 mL (18 mg/3 mL) subcutaneous pen injector RxNorm: 831166 3mg Milliliter(s) SQ daily 90 days worth 12/09/2012 03/08/2013 Inactive scopolamine 1.5 mg transdermal 72 hour patch RxNorm: 113947 1 Patch TD Q72H 10/26/2012 01/04/2014 Inactive scopolamine 1.5 mg 72 hr Transderm Patch RxNorm: 586836 1 Patch TD Q72H 10/26/2012 10/25/2012 Inactive metformin ER 1,000 mg tablet,extended release 24hr RxNorm: 148164 1 Tablet(s) PO BID 10/11/2012 06/29/2013 Inactive Victoza 3-To 0.6 mg/0.1 mL (18 mg/3 mL) Sub-Q Pen Injector RxNorm: 663509 1.8 Milliliter(s) SQ daily 1.8 mg dose daily 09/23/2012 12/08/2012 Inactive Victoza 3-To 0.6 mg/0.1 mL (18 mg/3 mL) Sub-Q Pen Injector RxNorm: 232584 3.0 Milliliter(s) SQ daily 1.2 + 1.8 mg dose daily 201209/22/2012 Inactive Celexa 40 mg tablet RxNorm: 784226 1 Tablet(s) PO daily TAKE ONE TABLET BY MOUTH DAILY 09/21/2012 05/18/2013 Inactive Cardizem LA 360 mg tablet,extended release RxNorm: 103268 1 Tablet(s) PO daily 07/20/2012 04/15/2013 Inactive metoprolol succinate ER 100 mg tablet,extended release 24 hr RxNorm: 484797 1 Tablet(s) PO daily 07/20/2012 04/13/2013 Inactive Byetta 10 mcg/0.04 mL per dose Sub-Q Pen Injector RxNorm: 207954 1 Milliliter(s) SQ BID 06/18/2012 09/22/2012 Inactive Diovan 320 mg tablet RxNorm: 269741 1 Tablet(s) PO daily 201203/14/2013 Inactive metformin ER 1,000 mg tablet,extended release 24hr RxNorm: 519041 1 Tablet(s) PO BID 06/14/2012 09/11/2012 Inactive metformin ER 1,000 mg tablet,extended release 24hr RxNorm: 195656 1 Tablet(s) PO 06/14/2012 06/13/2012 Inactive Livalo 4 mg tablet RxNorm: 361732 1 Tablet(s) PO daily 201201/04/2014 Inactive Celexa 40 mg tablet RxNorm: 550725 1 Tablet(s) PO daily 201209/21/2012 Inactive Accu-Chek Instant Glucose Test Strips RxNorm: 1 Miscellaneous daily accucheck ratna glucometer 05/21/2012 06/14/2013 Inactive Diflucan 150 mg tablet RxNorm: 510007 1 Tablet(s) PO daily 05/26/2012 Inactive Flagyl 500 mg tablet RxNorm: 459840 1 Tablet(s) PO TID 201205/27/2012 Inactive Minivelle 0.0375 mg/24 hr transdermal patch RxNorm: 4819543 1 Patch TD BIW No Start Date Active aspirin 81 mg tablet RxNorm: 511281 1 Tablet(s) PO daily No Start Date Active Cardizem LA 360 mg tablet,extended release RxNorm: 254183 1 Tablet(s) PO daily No Start Date 07/19/2012 Inactive metformin ER 750 mg tablet,extended release 24 hr RxNorm: 557015 1 Tablet(s) PO TID No Start Date 06/13/2012 Inactive Zithromax Z-To 250 mg tablet RxNorm: 203456 Tablet(s) PO No Start Date 06/13/2012 Inactive Diovan 320 mg tablet RxNorm: 597290 1 Tablet(s) PO daily No Start Date 06/17/2012 Inactive Byetta 10 mcg/0.04 mL per dose Sub-Q Pen Injector RxNorm: 081326 1 Milliliter(s) SQ BID No Start Date 06/17/2012 Inactive Vivelle 0.05 mg/24 hr Transderm Patch RxNorm: 504111 1 Patch TD [id number] No Start Date 12/03/2015 Inactive Fish Oil 1,000 mg capsule RxNorm: 1 Capsule(s) PO BID No Start Date 05/29/2015 Inactive Celexa 40 mg tablet RxNorm: 188490 1 Tablet(s) PO daily No Start Date 06/09/2012 Inactive levothyroxine 100 mcg tablet RxNorm: 836439 1 Tablet(s) PO daily No Start Date 04/16/2015 Inactive Fish Oil 1,000 mg capsule RxNorm: 1 Capsule(s) PO daily No Start Date 12/02/2015 Inactive Vitamin B-12 1,000 mcg/mL oral drops RxNorm: 6117033 1 Milliliter(s) PO daily No Start Date 12/02/2015 Inactive metoprolol succinate ER 100 mg tablet,extended release 24 hr RxNorm: 812034 1 Tablet(s) PO daily No Start Date 2012 Inactive promethazine-codeine 6.25 mg-10 mg/5 mL Syrup RxNorm: 505528 5-10 Milliliter(s) PO Q6 PRN No Start Date 12/12/2012 Inactive Percocet 5 mg-325 mg tablet RxNorm: 9131211 1-2 Tablet(s) PO Q6 PRN No Start Date 10/02/2013 Inactive hydrochlorothiazide 25 mg tablet RxNorm: 846429 1 Tablet(s) PO daily No Start Date 06/05/2013 Inactive Victoza 2-To 0.6 mg/0.1 mL (18 mg/3 mL) subcutaneous pen injector RxNorm: 297987 Milligram(s) SQ 1.8mg daily No Start Date 09/13/2013 Inactive Livalo 4 mg tablet RxNorm: 130024 1 Tablet(s) PO daily No Start Date 06/09/2012 Inactive Medication Administered Medication Codes Instructions Start Date Status Kenalog 40 mg/mL suspension for injection RxNorm: 7913940 Milliliter 02/22/2018 No longer Active Kenalog 40 mg/mL suspension for injection RxNorm: 7235014 Milliliter 01/22/2016 No longer Active Kenalog 40 mg/mL suspension for injection RxNorm: 7412324 Milliliter 11/23/2014 No longer Active Kenalog 40 mg/mL suspension for injection RxNorm: 3093727 Milliliter 11/22/2014 No longer Active ketorolac 60 mg/2 mL intramuscular solution RxNorm: 691199 2Milliliter 06/06/2013 No longer Active Immunizations Vaccine Codes Date Status Influenza CVX: 141 01/07/2018 completed Influenza CVX: 141 01/05/2014 completed Influenza CVX: 141 04/22/2013 completed Influenza CVX: 141 02/04/2012 completed Assessments Condition Codes Effective Dates Type 2 diabetes mellitus with hyperglycemia ICD-10: E11.65 ICD-9: 250.02 03/29/2018 Generalized anxiety disorder ICD-10: F41.1 ICD-9: 300.02 03/29/2018 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 ICD-9: 434.01 03/29/2018 Essential (primary) hypertension ICD-10: I10 ICD-9: 401.1 03/29/2018 Other allergic rhinitis ICD-10: J30.89 ICD-9: 477.8 02/22/2018 Actinic keratosis ICD-10: L57.0 ICD-9: 702.0 02/22/2018 Pain in left forearm ICD-10: M79.632 ICD-9: 729.5 02/22/2018 Major depressive disorder, single episode, moderate ICD-10: F32.1 ICD-9: 296.22 02/22/2018 Other acute sinusitis ICD-10: J01.80 ICD-9: 461.8 02/22/2018 Other specified hypothyroidism ICD-10: E03.8 ICD-9: 244.8 01/07/2018 VACCIN FOR INFLUENZA ICD-10: Z23 ICD-9: V04.81 01/07/2018 Type 2 diabetes mellitus without complications ICD-10: E11.9 ICD-9: 250.00 12/31/2017 Hypothyroidism, unspecified ICD-10: E03.9 ICD-9: 244.9 12/31/2017 Mixed hyperlipidemia ICD-10: E78.2 ICD-9: 272.2 [...] Visit Reason For Visit Effective Dates Notes Hospital Follow Up 03/29/2018 sinus congestion 02/22/2018 hypertension 01/07/2018 hypertension 10/01/2017 [...] 29.5 pg 01/05/2018 Cbc With Differential Ord2 [place]% 5.5 % 01/05/2018 Cbc With Differential Ord2 [...] 1.46 K/ul 01/05/2018 Cbc With Differential Ord2 [place] ABS# 0.5 K/ul 01/05/2018 Cbc With Differential Ord2 Eos ABS# 0.2 K/ul 01/05/2018 Cbc With Differential Ord2 Baso ABS# 0.1 K/ul 01/05/2018 Free T4 [id number] FREE T4 0.92 ng/dL 01/05/2018 Lipid Ord30 CHOL 200 mg/dL 01/05/2018 Lipid Ord30 HDL 48.0 mg/dl 01/05/2018 Lipid Ord30 TRIG 143 mg/dL 01/05/2018 Lipid Ord30 LDL 123 mg/dL 01/05/2018 Lipid Ord30 C/HDL 4.2 Ratio 01/05/2018 Comp Metabolic Poo344 NA 142 mEq/L 01/05/2018 Comp Metabolic Xch023 K 3.9 mEq/L 01/05/2018 Comp Metabolic Uvo435 CL 99 mEq/L 01/05/2018 Comp Metabolic Xmv804 CO2 34.0 mEq/L 01/05/2018 Comp Metabolic Jrh259 ANION GAP 13 01/05/2018 Comp Metabolic Chg575 GLUCOSE 205 mg/dL 01/05/2018 Comp Metabolic Sma639 Creat 1.0 mg/dL 01/05/2018 Comp Metabolic Wlo032 eGFR 65 ml/min/1.73m2 01/05/2018 Comp Metabolic Tot227 BUN 12 mg/dL 01/05/2018 Comp Metabolic Ndh988 B/C Ratio 12.6 Ratio 01/05/2018 Comp Metabolic Iqe137 CALCIUM 9.5 mg/dL 01/05/2018 Comp Metabolic Hhj949 ALK PHOS 150 U/L 01/05/2018 Comp Metabolic Qly232 AST(SGOT) 16 U/L 01/05/2018 Comp Metabolic Yal346 ALT(SGPT) 15 U/L 01/05/2018 Comp Metabolic Bfh882 BILI T 0.6 mg/dL 01/05/2018 Comp Metabolic Irg940 ALBUMIN 3.9 g/dL 01/05/2018 Comp Metabolic Pfb735 TPRO 6.6 g/dL 01/05/2018 Comp Metabolic Xpq737 GLOB 2.7 g/dL 01/05/2018 Comp Metabolic Vnk399 A/G Ratio 1.5 Ratio 01/05/2018 Comp Metabolic Kni740 Osmo 289 mOsmo 01/05/2018 %Hba1C Cdp595 % HbA1c 94837-1 10.9 % 01/05/2018 %Hba1C Jbj553 Gluc Ave 266 mg/dL 01/05/2018 Lipid Ord30 [...] 89.6 fl 09/29/2017 Cbc With Differential Ord2 [place]% 5.5 % 09/29/2017 Cbc With Differential Ord2 MCH 30.3 pg 09/29/2017 Cbc With Differential Ord2 MCHC 33.8 pg 09/29/2017 Cbc With Differential Ord2 Eos% 1.1 % 09/29/2017 Cbc With Differential Ord2 Baso% 0.5 % 09/29/2017 Cbc With Differential Ord2 PLT 327 K/ul 09/29/2017 Cbc With Differential Ord2 Neut ABS# 8.93 K/ul 09/29/2017 Cbc With Differential Ord2 RDW 13.1 % 09/29/2017 Cbc With Differential Ord2 Lymph ABS# 1.39 K/ul 09/29/2017 Cbc With Differential Ord2 [place] ABS# 0.6 K/ul 09/29/2017 Cbc With Differential Ord2 Eos ABS# 0.1 K/ul 09/29/2017 Cbc With Differential Ord2 Baso ABS# 0.1 K/ul 09/29/2017 Comp Metabolic Qtq134 NA 140 mEq/L 09/29/2017 Comp Metabolic Vdj887 K 3.4 mEq/L 09/29/2017 Comp Metabolic Idu586 CL 96 mEq/L 09/29/2017 Comp Metabolic Exj539 CO2 33.0 mEq/L 09/29/2017 Comp Metabolic Stc352 ANION GAP 14 09/29/2017 Comp Metabolic Gqx698 GLUCOSE 287 mg/dL 09/29/2017 Comp Metabolic Vcm390 Creat 0.8 mg/dL 09/29/2017 Comp Metabolic Guz466 eGFR 77 ml/min/1.73m2 09/29/2017 Comp Metabolic Ufh209 BUN 13 mg/dL 09/29/2017 Comp Metabolic Xnz120 B/C Ratio 15.9 Ratio 09/29/2017 Comp Metabolic Wkw850 CALCIUM 9.4 mg/dL 09/29/2017 Comp Metabolic Zqr402 ALK PHOS 147 U/L 09/29/2017 Comp Metabolic Dnx770 AST(SGOT) 17 U/L 09/29/2017 Comp Metabolic Rwc243 ALT(SGPT) 25 U/L 09/29/2017 Comp Metabolic Rhh364 BILI T 0.7 mg/dL 09/29/2017 Comp Metabolic Wrs704 ALBUMIN 4.2 g/dL 09/29/2017 Comp Metabolic Bpf627 TPRO 6.8 g/dL 09/29/2017 Comp Metabolic Zaa420 GLOB 2.6 g/dL 09/29/2017 Comp Metabolic Htb669 A/G Ratio 1.6 Ratio 09/29/2017 Comp Metabolic Zcx292 Osmo 290 mOsmo 09/29/2017 %Hba1C Mkx729 % HbA1c 34434-8 11.4 % 09/29/2017 %Hba1C Kxo164 Gluc Ave 280 mg/dL 09/29/2017 Free T4 Bgw569 FREE T4 1.14 ng/dL 09/29/2017 Tsh Ord6 TSH (3rd IS) 2.91 uIU/mL 09/29/2017 Lipid Ord30 CHOL 182 mg/dL 06/02/2017 Lipid Ord30 HDL 57.0 mg/dl 06/02/2017 Lipid Ord30 TRIG 126 mg/dL 06/02/2017 Lipid Ord30 LDL 100 mg/dL 06/02/2017 Lipid Ord30 C/HDL 3.2 Ratio 06/02/2017 %Hba1C Efh843 % HbA1c 80381-2 8.2 % 06/02/2017 %Hba1C Ccp454 Gluc Ave 189 mg/dL 06/02/2017 Comp Metabolic Dym895 NA 143 mEq/L 11/12/2016 Comp Metabolic Itd949 K 3.3 mEq/L 11/12/2016 Comp Metabolic Pmo872 CL 102 mEq/L 11/12/2016 Comp Metabolic Fwh229 CO2 30.0 mEq/L 11/12/2016 Comp Metabolic Cit234 ANION GAP 14 11/12/2016 Comp Metabolic Hmr507 GLUCOSE 141 mg/dL 11/12/2016 Comp Metabolic Wez454 Creat 0.8 mg/dL 11/12/2016 Comp Metabolic Zgn995 eGFR 76 ml/min/1.73m2 11/12/2016 Comp Metabolic Daj790 BUN 11 mg/dL 11/12/2016 Comp Metabolic Jqj424 B/C Ratio 13.3 Ratio 11/12/2016 Comp Metabolic Usi844 CALCIUM 9.2 mg/dL 11/12/2016 Comp Metabolic Xaq853 ALK PHOS 116 U/L 11/12/2016 Comp Metabolic Lid249 AST(SGOT) 21 U/L 11/12/2016 Comp Metabolic Oke364 ALT(SGPT) 28 U/L 11/12/2016 Comp Metabolic Yyu908 BILI T 0.5 mg/dL 11/12/2016 Comp Metabolic Dsb175 ALBUMIN 3.8 g/dL 11/12/2016 Comp Metabolic Gkp230 TPRO 6.4 g/dL 11/12/2016 Comp Metabolic Dcf489 GLOB 2.6 g/dL 11/12/2016 Comp Metabolic Jlo179 A/G Ratio 1.5 Ratio 11/12/2016 Comp Metabolic Ycm621 Osmo 287 mOsmo 11/12/2016 Lipid Ord30 CHOL [...] 16.9 % 11/12/2016 Cbc With Differential Ord2 [place]% 5.8 % 11/12/2016 Cbc With Differential Ord2 [...] 1.47 K/ul 11/12/2016 Cbc With Differential Ord2 [place] ABS# 0.5 K/ul 11/12/2016 Cbc With Differential Ord2 Eos ABS# 0.2 K/ul 11/12/2016 Cbc With Differential Ord2 Baso ABS# 0.0 K/ul 11/12/2016 Tsh Ord6 hTSH II 1.59 uIU/mL 11/12/2016 %Hba1C Jhs426 % HbA1c 32967-3 7.5 % 11/12/2016 %Hba1C Udm151 Gluc Ave 169 mg/dL 11/12/2016 Free T4 Gup138 FREE T4 0.91 ng/dL 11/12/2016 Cbc With [...] 29.7 pg 07/04/2016 Cbc With Differential Ord2 [place]% 7.1 % 07/04/2016 Cbc With Differential Ord2 [...] 1.10 K/ul 07/04/2016 Cbc With Differential Ord2 [place] ABS# 0.6 K/ul 07/04/2016 Cbc With Differential Ord2 Eos ABS# 0.1 K/ul 07/04/2016 Cbc With Differential Ord2 Baso ABS# 0.1 K/ul 07/04/2016 Lipid Ord30 CHOL 282 mg/dL 07/04/2016 Lipid Ord30 HDL 53.0 mg/dl 07/04/2016 Lipid Ord30 TRIG 136 mg/dL 07/04/2016 Lipid Ord30 LDL 202 mg/dL 07/04/2016 Lipid Ord30 C/HDL 5.3 Ratio 07/04/2016 Tsh Ord6 hTSH II 1.21 uIU/mL 07/04/2016 %Hba1C Jzy031 % HbA1c 98914-8 7.1 % 07/04/2016 %Hba1C Vtp003 Gluc Ave 157 mg/dL 07/04/2016 Comp Metabolic Lgv732 NA 141 mEq/L 07/04/2016 Comp Metabolic Pkf188 K 3.5 mEq/L 07/04/2016 Comp Metabolic Pvu837 CL 100 mEq/L 07/04/2016 Comp Metabolic Hxm810 CO2 34.0 mEq/L 07/04/2016 Comp Metabolic Sgz273 ANION GAP 11 07/04/2016 Comp Metabolic Hmc499 GLUCOSE 144 mg/dL 07/04/2016 Comp Metabolic Xhf925 Creat 0.8 mg/dL 07/04/2016 Comp Metabolic Ekw431 eGFR 75 ml/min/1.73m2 07/04/2016 Comp Metabolic Csp463 BUN 10 mg/dL 07/04/2016 Comp Metabolic Cpi044 B/C Ratio 11.9 Ratio 07/04/2016 Comp Metabolic Nza568 CALCIUM 9.4 mg/dL 07/04/2016 Comp Metabolic Ovc597 ALK PHOS 116 U/L 07/04/2016 Comp Metabolic Lgh761 AST(SGOT) 16 U/L 07/04/2016 Comp Metabolic Lzb806 ALT(SGPT) 17 U/L 07/04/2016 Comp Metabolic Xwp873 BILI T 0.6 mg/dL 07/04/2016 Comp Metabolic Bts720 ALBUMIN 4.3 g/dL 07/04/2016 Comp Metabolic Xic729 TPRO 7.0 g/dL 07/04/2016 Comp Metabolic Iys896 GLOB 2.7 g/dL 07/04/2016 Comp Metabolic Mli507 A/G Ratio 1.6 Ratio 07/04/2016 Comp Metabolic Gzy852 Osmo 283 mOsmo 07/04/2016 Free T4 Kss612 FREE T4 0.87 ng/dL 07/04/2016 Cbc With Differential Ord2 WBC 5.56 K/ul 03/31/2016 Cbc With Differential Ord2 RBC 4.75 M/ul 03/31/2016 Cbc With Differential Ord2 HGB 14.2 g/dl 03/31/2016 Cbc With Differential Ord2 Neut% 69.6 % 03/31/2016 Cbc With Differential Ord2 HCT 43.1 % 03/31/2016 Cbc With Differential Ord2 Lymph% 21.9 % 03/31/2016 Cbc With Differential Ord2 MCV 90.7 fl 03/31/2016 Cbc With Differential Ord2 MCH 29.9 pg 03/31/2016 Cbc With Differential Ord2 [place]% 6.5 % 03/31/2016 Cbc With Differential Ord2 [...] 1.22 K/ul 03/31/2016 Cbc With Differential Ord2 [place] ABS# 0.4 K/ul 03/31/2016 Cbc With Differential Ord2 Eos ABS# 0.1 K/ul 03/31/2016 Cbc With Differential Ord2 Baso ABS# 0.0 K/ul 03/31/2016 Comp Metabolic Msw095 NA 137 mEq/L 03/31/2016 Comp Metabolic Elx629 K 3.3 mEq/L 03/31/2016 Comp Metabolic Xjw965 CL 101 mEq/L 03/31/2016 Comp Metabolic Xey903 CO2 26.0 mEq/L 03/31/2016 Comp Metabolic Tdw305 ANION GAP 13 03/31/2016 Comp Metabolic Isi238 GLUCOSE 150 mg/dL 03/31/2016 Comp Metabolic Cga922 Creat 0.9 mg/dL 03/31/2016 Comp Metabolic Jsq141 eGFR 71 ml/min/1.73m2 03/31/2016 Comp Metabolic Syz879 BUN 13 mg/dL 03/31/2016 Comp Metabolic Mis666 B/C Ratio 14.8 Ratio 03/31/2016 Comp Metabolic Yzs421 CALCIUM 8.8 mg/dL 03/31/2016 Comp Metabolic Wwx245 ALK PHOS 103 U/L 03/31/2016 Comp Metabolic Bhc511 AST(SGOT) 18 U/L 03/31/2016 Comp Metabolic Ppm577 ALT(SGPT) 21 U/L 03/31/2016 Comp Metabolic Yuk025 BILI T 0.4 mg/dL 03/31/2016 Comp Metabolic Ifv724 ALBUMIN 3.9 g/dL 03/31/2016 Comp Metabolic Bve228 TPRO 6.5 g/dL 03/31/2016 Comp Metabolic Myk072 GLOB 2.6 g/dL 03/31/2016 Comp Metabolic Mgn165 A/G Ratio 1.5 Ratio 03/31/2016 Comp Metabolic Nwq534 Osmo 277 mOsmo 03/31/2016 Cbc With Differential [...] 30.4 pg 02/12/2016 Cbc With Differential Ord2 [place]% 7.0 % 02/12/2016 Cbc With Differential Ord2 [...] 2.42 K/ul 02/12/2016 Cbc With Differential Ord2 [place] ABS# 0.7 K/ul 02/12/2016 Cbc With Differential Ord2 Eos ABS# 0.2 K/ul 02/12/2016 Cbc With Differential Ord2 Baso ABS# 0.1 K/ul 02/12/2016 Comp Metabolic Dyp914 NA 138 mEq/L 02/01/2016 Comp Metabolic Mxq072 K 4.3 mEq/L 02/01/2016 Comp Metabolic Zbv969 CL 101 mEq/L 02/01/2016 Comp Metabolic Ywl684 CO2 27.0 mEq/L 02/01/2016 Comp Metabolic Rhd623 ANION GAP 14 02/01/2016 Comp Metabolic Ghb706 GLUCOSE 127 mg/dL 02/01/2016 Comp Metabolic Ezu945 Creat 1.0 mg/dL 02/01/2016 Comp Metabolic Qnl151 eGFR 61 ml/min/1.73m2 02/01/2016 Comp Metabolic Wzk763 BUN 21 mg/dL 02/01/2016 Comp Metabolic Ldb861 B/C Ratio 20.8 Ratio 02/01/2016 Comp Metabolic Kig010 CALCIUM 9.1 mg/dL 02/01/2016 Comp Metabolic Dza950 ALK PHOS 105 U/L 02/01/2016 Comp Metabolic Qfc974 AST(SGOT) 14 U/L 02/01/2016 Comp Metabolic Ppn905 ALT(SGPT) 26 U/L 02/01/2016 Comp Metabolic Prb895 BILI T 0.4 mg/dL 02/01/2016 Comp Metabolic Lxo715 ALBUMIN 3.9 g/dL 02/01/2016 Comp Metabolic Kdz614 TPRO 6.7 g/dL 02/01/2016 Comp Metabolic Ndd262 GLOB 2.8 g/dL 02/01/2016 Comp Metabolic Bsm811 A/G Ratio 1.4 Ratio 02/01/2016 Comp Metabolic Phf142 Osmo 280 mOsmo 02/01/2016 Tsh Ord6 hTSH [...] 91.5 fl 02/01/2016 Cbc With Differential Ord2 [place]% 5.8 % 02/01/2016 Cbc With Differential Ord2 MCH 30.4 pg 02/01/2016 Cbc With Differential Ord2 MCHC 33.3 pg 02/01/2016 Cbc With Differential Ord2 Eos% 1.6 % 02/01/2016 Cbc With Differential Ord2 PLT 392 K/ul 02/01/2016 Cbc With Differential Ord2 Baso% 0.3 % 02/01/2016 Cbc With Differential Ord2 RDW 13.6 % 02/01/2016 Cbc With Differential Ord2 Neut ABS# 8.63 K/ul 02/01/2016 Cbc With Differential Ord2 Lymph ABS# 3.74 K/ul 02/01/2016 Cbc With Differential Ord2 [place] ABS# 0.8 K/ul 02/01/2016 Cbc With Differential Ord2 Eos ABS# 0.2 K/ul 02/01/2016 Cbc With Differential Ord2 Baso ABS# 0.0 K/ul 02/01/2016 %Hba1C Gka036 % HbA1c 65461-1 6.9 % 01/07/2016 %Hba1C Bxd693 Gluc Ave 151 mg/dL 01/07/2016 Tsh Ord6 hTSH II 0.99 uIU/mL 11/08/2015 Free T4 Fbg177 FREE T4 1.01 ng/dL 11/08/2015 %Hba1C Fnz148 % HbA1c 04578-5 6.6 % 09/14/2015 %Hba1C Xcm119 Gluc Ave 143 mg/dL 09/14/2015 Lipid Ord30 CHOL 268 mg/dL 09/12/2015 Lipid Ord30 HDL 55.0 mg/dl 09/12/2015 Lipid Ord30 TRIG 146 mg/dL 09/12/2015 Lipid Ord30 LDL 184 mg/dL 09/12/2015 Lipid Ord30 C/HDL 4.9 Ratio 09/12/2015 Cbc With Differential Ord2 WBC 6.92 K/ul 09/12/2015 Cbc With Differential Ord2 RBC 4.89 M/ul 09/12/2015 Cbc With Differential Ord2 HGB 14.6 g/dl 09/12/2015 Cbc With Differential Ord2 Neut% 70.4 % 09/12/2015 Cbc With Differential Ord2 HCT 43.7 % 09/12/2015 Cbc With Differential Ord2 MCV 89.4 fl 09/12/2015 Cbc With Differential Ord2 Lymph% 21.4 % 09/12/2015 Cbc With Differential Ord2 MCH 29.9 pg 09/12/2015 Cbc With Differential Ord2 [place]% 5.9 % 09/12/2015 Cbc With Differential Ord2 Eos% 1.7 % 09/12/2015 Cbc With Differential Ord2 MCHC 33.4 pg 09/12/2015 Cbc With Differential Ord2 PLT 296 K/ul 09/12/2015 Cbc With Differential Ord2 Baso% 0.6 % 09/12/2015 Cbc With Differential Ord2 RDW 13.3 % 09/12/2015 Cbc With Differential Ord2 Neut ABS# 4.87 K/ul 09/12/2015 Cbc With Differential Ord2 Lymph ABS# 1.48 K/ul 09/12/2015 Cbc With Differential Ord2 [place] ABS# 0.4 K/ul 09/12/2015 Cbc With Differential Ord2 Eos ABS# 0.1 K/ul 09/12/2015 Cbc With Differential Ord2 Baso ABS# 0.0 K/ul 09/12/2015 Cbc With Differential Ord2 New Analyzer Notice Please note new ref ranges starting 05-09-2015 due to implemntation of new five part differential hematolgy analyzer. 09/12/2015 Comp Metabolic Tnn486 NA 139 mEq/L 09/12/2015 Comp Metabolic Jcb678 K 3.7 mEq/L 09/12/2015 Comp Metabolic Uln615 CL 102 mEq/L 09/12/2015 Comp Metabolic Qqy708 CO2 30.0 mEq/L 09/12/2015 Comp Metabolic Ffd917 ANION GAP 11 09/12/2015 Comp Metabolic Mgu758 GLUCOSE 135 mg/dL 09/12/2015 Comp Metabolic Gih718 Creat 0.8 mg/dL 09/12/2015 Comp Metabolic Vys371 eGFR 86 ml/min/1.73m2 09/12/2015 Comp Metabolic Tjm062 BUN 10 mg/dL 09/12/2015 Comp Metabolic Dwl511 B/C Ratio 13.3 Ratio 09/12/2015 Comp Metabolic Ott315 CALCIUM 8.8 mg/dL 09/12/2015 Comp Metabolic Ioc409 ALK PHOS 95 U/L 09/12/2015 Comp Metabolic Gkz216 AST(SGOT) 18 U/L 09/12/2015 Comp Metabolic Jhy210 ALT(SGPT) 20 U/L 09/12/2015 Comp Metabolic Jco436 BILI T 0.5 mg/dL 09/12/2015 Comp Metabolic Vmu586 ALBUMIN 3.9 g/dL 09/12/2015 Comp Metabolic Sai185 TPRO 6.5 g/dL 09/12/2015 Comp Metabolic Hzb269 GLOB 2.6 g/dL 09/12/2015 Comp Metabolic Iiz059 A/G Ratio 1.5 Ratio 09/12/2015 Comp Metabolic Lll830 Osmo 279 mOsmo 09/12/2015 Tsh Ord6 hTSH II 0.81 uIU/mL 08/01/2015 Free T4 Eep077 FREE T4 0.82 ng/dL 08/01/2015 Vitamin B12 209815 VITAMIN B12 TEST NOT PERFORMED pg/mL 2015 Vitamin D 25 Oh Cnf0670 VITAMIN D, 25 HYDROXY 50.78 ng/mL Comp Metabolic Vjo261 NA 142 mEq/L 04/12/2015 Comp Metabolic Giw802 K 3.5 mEq/L 04/12/2015 Comp Metabolic Hof077 CL 102 mEq/L 04/12/2015 Comp Metabolic Sjd730 CO2 32.0 mEq/L 04/12/2015 Comp Metabolic Bph577 ANION GAP 12 04/12/2015 Comp Metabolic Vtj714 GLUCOSE 130 mg/dL 04/12/2015 Comp Metabolic Rej844 Creat 0.8 mg/dL 04/12/2015 Comp Metabolic Knb230 eGFR 78 ml/min/1.73m2 04/12/2015 Comp Metabolic Yll094 BUN 12 mg/dL 04/12/2015 Comp Metabolic Flf689 B/C Ratio 14.6 Ratio 04/12/2015 Comp Metabolic Jii570 CALCIUM 8.9 mg/dL 04/12/2015 Comp Metabolic Enm562 ALK PHOS 95 U/L 04/12/2015 Comp Metabolic Cvc693 AST(SGOT) 21 U/L 04/12/2015 Comp Metabolic Axg276 ALT(SGPT) 23 U/L 04/12/2015 Comp Metabolic Sit285 BILI T 0.4 mg/dL 04/12/2015 Comp Metabolic Hww458 ALBUMIN 3.9 g/dL 04/12/2015 Comp Metabolic Xqi972 TPRO 6.3 g/dL 04/12/2015 Comp Metabolic Uxo614 GLOB 2.4 g/dL 04/12/2015 Comp Metabolic Nac475 A/G Ratio 1.6 Ratio 04/12/2015 Comp Metabolic Igy632 Osmo 285 mOsmo 04/12/2015 Tsh Ord6 hTSH II 0.18 uIU/mL 04/12/2015 %Hba1C Vwj237 % HbA1c 44684-1 6.4 % 04/12/2015 %Hba1C Zkn766 Gluc Ave 137 mg/dL 04/12/2015 Free T4 Noh686 FREE T4 1.13 ng/dL 04/12/2015 Cbc With [...] Ord2 RDW 14.6 % 11/14/2014 Comp Metabolic Yvr990 NA 137 mEq/L 11/14/2014 Comp Metabolic Sqr230 K 3.6 mEq/L 11/14/2014 Comp Metabolic Wfm067 CL 98 mEq/L 11/14/2014 Comp Metabolic Ovz361 CO2 31.0 mEq/L 11/14/2014 Comp Metabolic Agf541 ANION GAP 12 11/14/2014 Comp Metabolic Zmb834 GLUCOSE 110 mg/dL 11/14/2014 Comp Metabolic Tmm545 Creat 0.8 mg/dL 11/14/2014 Comp Metabolic Irk436 eGFR 81 ml/min/1.73m2 11/14/2014 Comp Metabolic Fxt185 BUN 14 mg/dL 11/14/2014 Comp Metabolic Hhf401 B/C Ratio 17.7 Ratio 11/14/2014 Comp Metabolic Ybt536 CALCIUM 9.2 mg/dL 11/14/2014 Comp Metabolic Upb126 ALK PHOS 135 U/L 11/14/2014 Comp Metabolic Flh864 AST(SGOT) 17 U/L 11/14/2014 Comp Metabolic Ezc151 ALT(SGPT) 20 U/L 11/14/2014 Comp Metabolic Rnd058 BILI T 0.3 mg/dL 11/14/2014 Comp Metabolic Swr554 ALBUMIN 3.7 g/dL 11/14/2014 Comp Metabolic Fwq517 TPRO 6.5 g/dL 11/14/2014 Comp Metabolic Nhs614 GLOB 2.8 g/dL 11/14/2014 Comp Metabolic Ckl612 A/G Ratio 1.3 Ratio 11/14/2014 Comp Metabolic Kny686 Osmo 275 mOsmo 11/14/2014 CHEM 14 0779939 AST 18 U/L 04/11/2014 CHEM 14 6108063 ALT 25 IU/L 04/11/2014 CHEM 14 8227556 BUN 13 MG/DL 04/11/2014 CHEM 14 0453388 ALBUMIN 4.1 GM/DL 04/11/2014 CHEM 14 6133676 CHLORIDE 103 MMOL/L 04/11/2014 CHEM 14 2089702 BILI TOT 0.3 MG/DL 04/11/2014 CHEM 14 7537695 ALK PHOS 107 U/L 04/11/2014 CHEM 14 8884861 SODIUM 139 MMOL/L 04/11/2014 CHEM 14 9973387 CREATININE 0.85 MG/DL 04/11/2014 CHEM 14 4994772 CALCIUM 9.2 MG/DL 04/11/2014 CHEM 14 9102637 POTASSIUM 3.7 MMOL/L 04/11/2014 CHEM 14 7752831 PROT TOT 7.1 GM/DL 04/11/2014 CHEM 14 0472055 GLUCOSE 85 MG/DL 04/11/2014 CHEM 14 1569153 BICARB 28 MMOL/L 04/11/2014 CHEM 14 8932403 ANION GAP 8 MEQ/L 04/11/2014 GFR CALC 3761539 GFR AA >60 ML/MIN 04/11/2014 GFR CALC 4289113 GFR NON-AA >60 ML/MIN 04/11/2014 URINALYSIS NONAUTO W/O SCOPE 71759 Specific Fields 1.020 DateTime(Free Text in Aprima) URINALYSIS NONAUTO W/O SCOPE 06825 PH 5.0 DateTime(Free Text in Aprima) URINALYSIS NONAUTO W/O SCOPE 87725 Protein neg DateTime( Free Text in Apr[employer]) URINALYSIS NONAUTO W/O SCOPE 82883 Blood neg DateTime(Free Text in Apr[employer]) URINALYSIS NONAUTO W/O SCOPE 60845 Bilirubin neg DateTime(Free Text in Apr[employer]) URINALYSIS NONAUTO W/O SCOPE 99253 Ketones small DateTime(Free Text in Apr[employer]) URINALYSIS NONAUTO W/O SCOPE 89950 Urobilinogen neg DateTime(Free Text in Apr[employer]) URINALYSIS NONAUTO W/O SCOPE 43167 Nitrite neg DateTime( Free Text in Apr[employer]) URINALYSIS NONAUTO W/O SCOPE 46986 Leukocytes neg DateTime(Free Text in Aprima) Review of Systems System Result Effective Dates Constitutional recent illness 03/29/2018 Constitutional No chills 03/29/2018 Constitutional No diaphoresis 03/29/2018 Constitutional No fever 03/29/2018 Eyes No eye discharge 03/29/2018 Eyes No eye erythema 03/29/2018 Ears/Nose/Throat/Neck No nasal allergies 03/29/2018 Ears/Nose/Throat/Neck No nasal discharge 03/29/2018 Cardiovascular No chest pain/pressure 06/2017 Cardiovascular No dyspnea 03/29/2018 Respiratory No productive sputum 2017 Respiratory No chest congestion 2017 Respiratory No cough 03/29/2018 Gastrointestinal No abdominal pain 2017 Gastrointestinal No constipation 2017 Gastrointestinal No diarrhea 03/29/2018 Gastrointestinal No nausea 03/29/2018 Gastrointestinal No vomiting 03/29/2018 Musculoskeletal No joint complaint 2017 Neurologic No alteration of consciousness 03/29/2018 Neurologic No mental status change 2017 Constitutional fatigue 03/29/2018 Musculoskeletal muscle weakness 2017 Psychiatric depression 03/29/2018 Dermatologic No rash 03/29/2018 Dermatologic No sores 03/29/2018 Endocrine diabetes mellitus type 2 2017 Constitutional recent illness 02/22/2018 Constitutional No chills [...] 1994 Constitutional general appearance Overall: well developed 03/29/2018 None Full Exam - General 1994 Constitutional general appearance Overall: in no acute distress 03/29/2018 None Full Exam - General 1994 Constitutional general appearance Overall: well nourished 03/29/2018 None Full Exam - General 1994 Eyes conjunctiva /eyelids Overall: conjunctiva clear 03/29/2018 None Full Exam - General 1994 Eyes conjunctiva /eyelids Overall: cornea clear 03/29/2018 None Full Exam - General 1994 Eyes conjunctiva /eyelids Overall: eyelids normal 03/29/2018 None Full Exam - General 1994 Ears/Nose/Throat otoscopic exam Overall: external auditory canals clear 03/29/2018 None Full Exam - General 1994 Ears/Nose/Throat otoscopic exam Overall: tympanic membranes clear 03/29/2018 None Full Exam - General 1994 Ears/Nose/Throat lips/teeth/gingiva Overall: benign lips 03/29/2018 None Full Exam - General 1994 Ears/Nose/Throat oral cavity/pharynx/larynx Overall: oral mucosa clear 03/29/2018 None Full Exam - General 1994 Ears/Nose/Throat oral cavity/pharynx/larynx Overall: oropharyngeal mucosa clear 03/29/2018 None Full Exam - General 1994 Respiratory auscultation Overall: breath sounds clear bilaterally 03/29/2018 None Full Exam - General 1994 Respiratory respiratory effort/rhythm Overall: no retractions 03/29/2018 None Full Exam - General 1994 Respiratory respiratory effort/rhythm Overall: normal rate 03/29/2018 None Full Exam - General 1994 Cardiovascular extremities Overall: no clubbing 03/29/2018 None Full Exam - General 1994 Cardiovascular auscultation of heart Overall: regular rate 03/29/2018 None Full Exam - General 1994 Cardiovascular auscultation of heart Overall: normal heart sounds 03/29/2018 None Full Exam - General 1994 Abdomen abdominal exam Overall: normal bowel sounds 03/29/2018 None Full Exam - General 1994 Lymphatic neck nodes Overall: anterior cervical chain benign 03/29/2018 None Full Exam - General 1994 Lymphatic neck nodes Overall: posterior cervical chain benign 03/29/2018 None Full Exam - General 1994 Musculoskeletal head and neck Overall: head atraumatic 03/29/2018 None Full Exam - General 1994 Neurologic cranial nerves Overall: crainial nerves 2 - 12 grossly intact 03/29/2018 None Full Exam - General 1994 Psychiatric orientation/consciousness Overall: oriented to person, place and time 03/29/2018 None Full Exam - General 1994 Psychiatric mood and affect Overall: normal mood and affect 03/29/2018 None Full Exam - ENT Constitutional general [...] masses 09/23/2012 None Full Exam - General 1995 Respiratory auscultation Overall: breath sounds clear bilaterally 09/23/2012 None Full Exam - General 1994 Respiratory respiratory effort/rhythm Overall: no retractions 09/23/2012 None Full Exam - General 1994 Respiratory respiratory effort/rhythm Overall: normal rate 09/23/2012 None Full Exam - General 1995 Cardiovascular extremities Overall: no clubbing 09/23/2012 None [...] CPT-4: J3301 02/22/2018 IMMUNIZATION ADMIN CPT -4: 33632 01/07/2018 FLU VAC NO PRSV 4 SHAKILA 3 YRS+ CPT-4: 83268 01/07/2018 TRIAMCINOLONE ACET INJ NOS CPT-4: J3301 01/22/2016 TRIAMCINOLONE ACET INJ NOS CPT-4: J3301 11/23/2014 THER/PROPH/DIAG INJ SC/IM CPT-4: 43183 11/23/2014 THER/PROPH/DIAG INJ SC/IM CPT-4: 20263 11/22/2014 TRIAMCINOLONE ACET INJ NOS CPT-4: J3301 11/22/2014 URINALYSIS NONAUTO W/O SCOPE CPT-4: 25376 11/14/2014 ROUTINE VENIPUNCTURE CPT-4: 14883 04/11/2014 CHEM 14 (COMPREHEN METABOLIC PANEL) CPT-4: 06750 04/11/2014 IMMUNIZATION ADMIN CPT -4: 98454 01/05/2014 FLU VAC NO PRSV 4 SHAKILA 3 YRS+ Assigned to/Alyssa Thomas CPT-4: 08827Sdymizl 01/05/2014 FOOT EXAM PERFORMED SNOMED CT: [id number] CPT-4: 2028F 06/20/2013 THER/PROPH/DIAG INJ SC/IM CPT-4: 49523 06/06/2013 KETOROLAC TROMETHAMINE INJ CPT-4: J1885 06/06/2013 Vital Signs Date Vital 03/29/2018 Blood Pressure 1: 140/72 Code : 8480-6 BMI: 31.8 Code : 41262-0 Heart Rate 1 : 78 bpm Height: 5'6" SpO2: 99% Weight: 194 lbs 02/22/2018 Blood Pressure 1: 130/68 Code : 8480-6 BMI: 31.5 Code : 97717-9 Heart Rate 1 : 91 bpm Height: 5'6" SpO2: 98% Weight: 192 lbs 01/07/2018 Blood Pressure 1: 138/82 Code : 8480-6 BMI: 31.3 Code : 47342-0 Heart Rate 1 : 95 bpm Height: 5'6" SpO2: 98% Weight: 191 lbs 10/01/2017 Blood Pressure 1: 138/88 Code : 8480-6 BMI: 30.3 Code : 17041-7 Heart Rate 1 : 80 bpm Height: 5'6" SpO2: 98% Weight: 185 lbs 06/08/2017 Blood Pressure 1: 148/92 Code : 8480-6 BMI: 31.5 Code : 70230-8 Heart Rate 1 : 88 bpm Height: 5'6" SpO2: 98% Weight: 192 lbs 11/12/2016 Blood Pressure 1: 140/80 Code : 8480-6 BMI: 29.7 Code : 15488-2 Heart Rate 1 : 82 bpm Height: 5'6" SpO2: 96% Weight: 181 lbs 08/11/2016 Blood Pressure 1: 152/88 Code : 8480-6 BMI: 30.3 Code : 24833-8 Heart Rate 1 : 73 bpm Height: 5'6" SpO2: 98% Weight: 185 lbs 03/31/2016 Blood Pressure 1: 124/86 Code : 8480-6 BMI: 30.2 Code : 25159-3 Heart Rate 1 : 86 bpm Height: 5'6" SpO2: 95% Weight: 184 lbs 02/01/2016 Blood Pressure 1: 112/60 Code : 8480-6 BMI: 29.5 Code : 87665-4 Heart Rate 1 : 68 bpm Height: 5'6" SpO2: 98% Weight: 180 lbs 01/22/2016 Blood Pressure 1: 132/80 Code : 8480-6 BMI: 29.8 Code : 14121-9 Heart Rate 1 : 76 bpm Height: 5'6" SpO2: 98% Temperature: 35.7 (C) / 96.2 (F) Weight: 182 lbs 01/07/2016 Blood Pressure 1: 134/86 Code : 8480-6 BMI: 30.0 Code : 28163-0 Heart Rate 1 : 78 bpm Height: 5'6" SpO2: 98% Weight: 183 lbs 12/03/2015 Blood Pressure 1: 146/86 Code : 8480-6 BMI: 30.2 Code : 81782-8 Heart Rate 1 : 93 bpm Height: 5'6" SpO2: 98% Weight: 184 lbs 8 09/17/2015 Blood Pressure 1: 140/88 Code : 8480-6 BMI: 29.5 Code : 71210-9 Heart Rate 1 : 77 bpm Height: 5'6" SpO2: 98% Weight: 180 lbs 05/29/2015 Blood Pressure 1: 140/80 Code : 8480-6 BMI: 28.2 Code : 75782-2 Heart Rate 1 : 83 bpm Height: 5'6" SpO2: 98% Weight: 172 lbs 12/12/2014 Blood Pressure 1: 150/92 Code : 8480-6 BMI: 28.2 Code : 48182-5 Heart Rate 1 : 91 bpm Height: 5'6" SpO2: 96% Weight: 172 lbs 11/23/2014 Blood Pressure 1: 138/92 Code : 8480-6 11/22/2014 Blood Pressure 1: 126/80 Code : 8480-6 BMI: 28.7 Code : 01513-2 Heart Rate 1 : 86 bpm Height: 5'6" SpO2: 97% Weight: 175 lbs 11/14/2014 Blood Pressure 1: 130/82 Code : 8480-6 BMI: 28.7 Code : 70450-3 Heart Rate 1 : 72 bpm Height: 5'6" Temperature: 36.3 (C) / 97.4 (F) Weight: 175 lbs 09/04/2014 Blood Pressure 1: 128/82 Code : 8480-6 BMI: 30.3 Code : 88105-8 Heart Rate 1 : 80 bpm Height: 5'6" Weight: 185 lbs 08/04/2014 Blood Pressure 1: 140/82 Code : 8480-6 BMI: 31.3 Code : 25989-6 Heart Rate 1 : 92 bpm Height: 5'6" SpO2: 99% Weight: 191 lbs 04/11/2014 Blood Pressure 1: 142/80 Code : 8480-6 BMI: 34.7 Code : 09723-2 Heart Rate 1 : 74 bpm Height: 5'6" Weight: 212 lbs 01/05/2014 Blood Pressure 1: 144/84 Code : 8480-6 BMI: 36.7 Code : 58901-3 Heart Rate 1 : 89 bpm Height: 5'6" SpO2: 97% Weight: 224 lbs 10/10/2013 Blood Pressure 1: 112/70 Code : 8480-6 BMI: 36.1 Code : 69870-6 Heart Rate 1 : 104 bpm Height: 5'6" Weight: 220 lbs 08/02/2013 Blood Pressure 1: 178/98 Code : 8480-6 BMI: 36.4 Code : 82984-2 Heart Rate 1 : 100 bpm Height: 5'6" Weight: 222 lbs 06/30/2013 Blood Pressure 1: 142/82 Code : 8480-6 BMI: 35.9 Code : 10338-0 Heart Rate 1 : 86 bpm Height: 5'6" SpO2: 98% Temperature: 36.3 (C) / 97.3 (F) Weight: 219 lbs 06/20/2013 Blood Pressure 1: 126/78 Code : 8480-6 BMI: 36.2 Code : 77442-0 Heart Rate 1 : 76 bpm Height: 5'6" Weight: 221 lbs 06/06/2013 Blood Pressure 1: 158/98 Code : 8480-6 BMI: 36.2 Code : 92595-4 Heart Rate 1 : 92 bpm Height: 5'6" Weight: 221 lbs 02/21/2013 Blood Pressure 1: 128/82 Code : 8480-6 BMI: 35.2 Code : 02565-0 Heart Rate 1 : 80 bpm Height: 5'6" Temperature: 35.7 (C) / 96.3 (F) Weight: 215 lbs 12/13/2012 Blood Pressure 1: 132/86 Code : 8480-6 BMI: 35.7 Code : 27388-7 Heart Rate 1 : 80 bpm Height: 5'6" Weight: 218 lbs 09/23/2012 Blood Pressure 1: 132/90 Code : 8480-6 BMI: 36.2 Code : 85621-2 Heart Rate 1 : 84 bpm Height: 5'6" Weight: 221 lbs 06/14/2012 Blood Pressure 1: 134/84 Code : 8480-6 Heart Rate 1: 84 bpm Respiratory Rate : 20 bpm Weight: 221 lbs 05/21/2012 Blood Pressure 1: 136/80 Code : 8480-6 BMI: 35.9 Code : 51257-7 Heart Rate 1 : 20 bpm Height: 5'6" Respiratory Rate: 16 bpm Temperature: 36.7 ( C) / 98.0 (F) Weight: 219 lbs Functional Status No Functional Status data History of Present Illness Symptom Name Status Result Effective Date Notes _ Other: stroke 03/29 None Onset of Symptom 3 weeks ago 03/29/2018 None Quality chronic 03/29 None Onset and Resolution ongoing 03/29/2018 None Quality insulin dependent 03/29/2018 None Severity moderate 06/2017 None Alleviating Factors insulin 03/29/2018 None Exacerbating Factors diet 03/29/2018 None sinus congestion Location frontal sinuses 02/22/2018 None [...] surgery was canceled. She was referred to gutter installer at acute renal failure Onset of Symptom [...] in the larynx 02/21/2013 patient went to [facility] thursday. was given a zpack, prednisone, [...] data Encounters Encounter Performer Location Codes Date ([id number]) 20214 EST. 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 PATIENT, LEVEL IV Diagnosis: Other acute sinusitis[ICD10: J01.80] Diagnosis: Other allergic rhinitis[ICD10: J30.89] Diagnosis: Actinic keratosis[ICD10: L57.0] Diagnosis: Pain in left forearm[ICD10: M79.632] Diagnosis: Generalized anxiety disorder[ICD10: F41.1] Diagnosis: Major depressive disorder, single episode, moderate[ICD10: F32.1] Tiffanie Curran MD, [facility] CPT-4: 95235 02/22/2018 20546 EST. PATIENT, LEVEL IV Diagnosis: Type 2 diabetes mellitus with hyperglycemia[ICD10: E11.65] Diagnosis: Other specified hypothyroidism[ICD10: E03.8] Diagnosis: VACCIN FOR INFLUENZA[ICD10: Z23] [facility] CPT- 4: 72517 01/07/2018 67210 EST. PATIENT, LEVEL IV Diagnosis: Type 2 diabetes mellitus with hyperglycemia[ICD10: E11.65] Diagnosis: Other specified hypothyroidism[ICD10: E03.8] Diagnosis: Other allergic rhinitis[ICD10: J30.89] [facility] CPT-4: 32002 10/01/2017 65640 EST. PATIENT, LEVEL IV Diagnosis: Type 2 diabetes mellitus with hyperglycemia[ICD10: E11.65] Diagnosis: Hypothyroidism, unspecified[ICD10: E03.9] Diagnosis: Generalized anxiety disorder[ICD10: F41.1] Diagnosis: Major depressive disorder, single episode, moderate[ICD10: F32.1] [facility] CPT-4: 83596 06/08/2017 ([id number]) PREV VISIT EST AGE 40-64 Diagnosis: Encounter for general adult medical examination without abnormal findings[ICD10: Z00.00] Eleonora Curran MD, [facility] CPT-4: 38426 11/12/2016 ([id number]) 47204 EST. PATIENT, LEVEL III Diagnosis: Allergic rhinitis due to pollen[ICD10: J30.1] Diagnosis: Acute upper respiratory infection, unspecified[ICD10: J06.9] Talya Curran MD, [facility] CPT-4: 23593 09/16/2016 ([id number]) 13020 EST. PATIENT, LEVEL IV Diagnosis: Essential (primary) hypertension[ICD10: I10] Diagnosis: Type 2 diabetes mellitus without complications[ICD10: E11.9] Diagnosis: Functional diarrhea[ICD10: K59.1] Diagnosis: Mixed hyperlipidemia[ICD10: E78.2] Eleonora Curran MD, [facility] CPT-4: 24296 08/11/2016 ([id number]) 46635 EST. PATIENT, LEVEL III Diagnosis: Cramp and spasm[ICD10: R25.2] Diagnosis: Nausea[ICD10: R11.0] Talya Curran MD, [facility] CPT-4: 77408 03/31/2016 ([id number]) 57895 EST. PATIENT, LEVEL IV Diagnosis: Cough[ICD10: R05] Diagnosis: Essential (primary) hypertension[ICD10: I10] Diagnosis: Hypothyroidism, unspecified[ICD10: E03.9] Diagnosis: Gastro-esophageal reflux disease without esophagitis[ICD10: K21.9] Talya Curran MD, [facility] CPT-4: 74787 02/01/2016 ([id number]) 63676 EST. PATIENT, LEVEL III Diagnosis: Cough[ICD10: R05] Diagnosis: Acute bronchitis, unspecified[ICD10: J20.9] Talya Curran MD, [facility] CPT-4: 28904 01/22/2016 ([id number]) 10081 EST. PATIENT, LEVEL IV Diagnosis: Type 2 diabetes mellitus without complications[ICD10: E11.9] Diagnosis: Essential (primary) hypertension[ICD10: I10] Diagnosis: Dysphagia, pharyngeal phase[ICD10: R13.13] Eleonora Curran MD, [facility] CPT-4: 29041 01/07/2016 ([id number]) 16378 EST. PATIENT, LEVEL IV Diagnosis: Type 2 diabetes mellitus without complications[ICD10: E11.9] Diagnosis: Essential (primary) hypertension[ICD10: I10] Diagnosis: Pain in right knee[ICD10: M25.561] Eleonora Curran MD [facility] CPT-4: 60710 12/03/2015 ([id number]) 07065 EST. PATIENT, LEVEL IV Diagnosis: Type 2 diabetes mellitus with hyperglycemia[ICD10: E11.65] Diagnosis: Essential (primary) hypertension[ICD10: I10] Eleonora Curran MD [facility] CPT-4: 51529 09/17/2015 ([id number]) 37525 EST. 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 PATIENT, LEVEL III Diagnosis: Diabetes mellitus, type II[ICD9: 250.00] Diagnosis: ESSENTIAL HYPERTENSION[ICD9: 401.9] Diagnosis: ESOPHAGEAL REFLUX[ICD9: 530.81] Eleonora Curran MD [facility] CPT- 4: 33698 12/12/2014 ([id number]) 92887 EST. PATIENT, LEVEL III Diagnosis: ALLERGIC URTICARIA[ICD9: 708.0] Kristan Curran MD [facility] CPT-4 : 94952 11/22/2014 ([id number]) 56604 EST. PATIENT, LEVEL III Diagnosis: Abdominal pain[ICD9: 789.00] Diagnosis: Status post gastric surgery[ICD9: V45.89] Kristan Curran MD [facility] CPT-4: 18492 11/14/2014 ([id number]) 44644 EST. PATIENT, LEVEL III Diagnosis: Diabetes mellitus, type II[ICD9: 250.00] Diagnosis: ESSENTIAL HYPERTENSION[ICD9: 401.9] Diagnosis: OBESITY[ICD9: 278.00] Diagnosis: ESOPHAGEAL REFLUX[ICD9: 530.81] Eleonora Curran MD, [facility] CPT- 4: 25108 09/04/2014 ([id number]) 73897 EST. PATIENT, LEVEL IV Diagnosis: Diabetes mellitus, type II[ICD9: 250.00] Diagnosis: ESSENTIAL HYPERTENSION[ICD9: 401.9] Diagnosis: OBESITY[ICD9: 278.00] Eleonora Curran MD, [facility] CPT-4: 03690 08/04/2014 ([id number]) 26753 EST. PATIENT, LEVEL IV Diagnosis: Thyroid nodule[ICD9: 241.0] Diagnosis: Decreased renal function[ICD9: 593.9] Diagnosis: Diabetes mellitus, type II[ICD9: 250.00] Talya Curran MD, [facility] CPT-4: 24382 04/11/2014 ([id number]) 68872 EST. PATIENT, LEVEL IV Diagnosis: Chronic diarrhea[ICD9: 787.91] Diagnosis: DM W/O COMPLICATION TYPE II, UNCONTROLLED[ICD9: 250.02] Diagnosis: ESSENTIAL HYPERTENSION[ICD9: 401.9] Talya Curran MD, [facility] CPT-4: 75623 01/05/2014 59306 EST. PATIENT, LEVEL IV Diagnosis: DM W/O COMPLICATION TYPE II, UNCONTROLLED[ICD9: 250.02] Diagnosis: OBESITY[ICD9: 278.00] Diagnosis: Generalized anxiety disorder[ICD9: 300.02] Diagnosis: ESSENTIAL HYPERTENSION[ICD9: 401.9] Eleonora Curran MD [facility] CPT-4: 45174 10/10/2013 ([id number]) 83703 EST. PATIENT, LEVEL IV Diagnosis: DM W/O COMPLICATION TYPE II, UNCONTROLLED[ICD9: 250.02] Diagnosis: Shoulder pain, right[ICD9: 719.41] Diagnosis: INSOMNIA NOS[ICD9: 780.52] Eleonora Curran MD, [facility] CPT- 4: 79265 08/02/2013 ([id number]) 19079 EST. PATIENT, LEVEL IV Diagnosis: DM W/O COMPLICATION TYPE II, UNCONTROLLED[SNOMED: 76329325] Diagnosis: COUGH[ICD9: 786.2] Diagnosis: MYALGIA AND MYOSITIS[ICD9: 729.1] Eleonora Curran MD, [facility] CPT-4: 56273 06/30/2013 ([id number]) 71272 EST. PATIENT, LEVEL III Diagnosis: DM W/O COMPLICATION TYPE II, UNCONTROLLED[SNOMED: 11613910] Eleonora Curran MD [facility] CPT-4: 68392 06/20/2013 ([id number]) 24001 EST. PATIENT, LEVEL IV Diagnosis: DM W/O COMPLICATION TYPE II, UNCONTROLLED[SNOMED: 78390707] Eleonora Curran MD [facility] CPT-4: 46795 06/06/2013 ([id number]) 02507 EST. PATIENT, LEVEL IV Diagnosis: Acute bronchitis[ICD9: 466.0] Diagnosis: Cough[ICD9: 786.2] Diagnosis: Myalgia[ICD9: 729.1] Eleonora Curran MD, [facility] CPT-4: 84492 02/21/2013 17531 EST. PATIENT, LEVEL IV Diagnosis: DM W/O COMPLICATION TYPE II, UNCONTROLLED[SNOMED: 35532092] Diagnosis: OBESITY[ICD9: 278.00] Diagnosis: Dietary counseling and surveillance[ICD9: V65.3] Eleonora Curran MD [facility] CPT-4: 18350 12/13/2012 ([id number]) 88080 EST. PATIENT, LEVEL IV Diagnosis: DM W/O COMPLICATION TYPE II, UNCONTROLLED[SNOMED: 83795549] Diagnosis: HYPERLIPIDEMIA[ICD9: 272.4] Eleonora Curran MD [facility] CPT- 4: 74862 09/23/2012 ([id number]) 54724 EST. PATIENT, LEVEL IV Diagnosis: Diabetes mellitus type 2, uncontrolled[SNOMED: 41757127] Diagnosis: Hyperlipidemia[ICD9: 272.4] Diagnosis: ESSENTIAL HYPERTENSION[SNOMED: 33699903] Talya Curran MD, [facility] CPT-4: 88637 06/14/2012 OFFICE VISIT, NEW - LEVEL 3 Diagnosis: Influenza[ICD9: 487.1] Diagnosis: COUGH[ICD9: 786.2] Diagnosis: FEVER NOS[ICD9: 780.60] Diagnosis: Diarrhea[ICD9: 787.91] Diagnosis: Diabetes mellitus, type II[SNOMED: 316266453] Talya Curran MD, [facility] CPT-4: 60827 05/21/2012 Plan of Care Planned Activity Notes Codes Status Date Visit Plan: Hypertension - well controlled - continue with current medications, continue with no added salt diet. Pt has been encouraged to exercise daily. The pt has been advised to call the office if there are any acute concerns about change in blood pressure readings at home. Diabetes Mellitus - improved control per pt's report, RX for freestyle aysha CGM for improved checking of her FSBS and therefore more accurate FSBS reports. I have recommended for the [...] are starting to become less controlled. Right sided stoke with left sided weakness - recommended continue with physical therapy with Leonardo Wyman and rx for handicap placard for 6 months. 03/29/2018 Patient Education: Patient Medication Summary Completed 03/29/2018 Patient Education: Diabetes Completed 03/29/2018 Visit Plan: Sinusitis - Pt has acute [...] monitor lesions. 02/22/2018 Appointment: Tiffanie Cr WPtel: [address] [place], [place] [address] (15 min) Moderate 02/22/2018 Patient Education: Patient [...] previous levels of control. 01/07/2018 Appointment: Tiffanie Cr: [phone] [facility] (15 min) Moderate 01/07/2018 Patient Education: Patient Medication Summary Completed 01/07/2018 Patient Education: Diabetes Completed 01/07/2018 App[facility]ment[phone] (15 min) Moderate 12/31/2017 Patient Education: Patient [...] allergy spray. 10/01/2017 Appointment: Tiffanie Cr WPtel: [phone] [facility] (15 min) Moderate 10/01/2017 Patient Education: Patient Medication Summary Completed 10/01/2017 Appointment: Tiffanie Cr WPtel: [facility]5 [facility] (15 min) Moderate 09/07/2017 Visit Plan: Diabetes [...] this patient. 06/08/2017 Appointment: [facility] Cr [phone] (30 min) Complex 06/08/2017 Patient Education: Patient [...] renal functioning. 11/12/2016 Appointment: Eleonora Curran WPtel: [facility]5 [facility] (15 min) Moderate 11/12/2016 Patient Education: Patient Medication Summary Completed 11/12/2016 Patient Education: Patient Medication Summary Completed 11/12/2016 Appointment: Eleonora Curran WPtel: [phone] [facility]66[facility] (15 min) Moderate 11/06/2016 Visit Plan: Allergies [...] patient's pharmacy. 09/16/2016 Appointment: Talya Hernandez WPtel: [phone] [facility] (10 min) Simple 09/16/2016 Patient Education: Patient Medication Summary Completed 09/16/2016 Care Plan: SCREENINGMAMMOGRAPHYDIGITAL LOINC : 36212-6 Pending 08/16/2016 Visit Plan: Diabetes Mellitus - [...] acute concerns. 08/11/2016 Appointment: Eleonora Curran WPtel: [facility] (15 min) Moderate 08/11/2016 Patient Education: Patient Medication Summary Completed 08/11/2016 Patient Education: Obesity Completed 08/11/2016 Appointment: Eleonora Curran WPtel: [facility] (15 min) Moderate 07/14/2016 Patient Education: Patient Medication Summary Completed 07/04/2016 Care Plan: Cbc With Differential Pending 07/04/2016 Care Plan: Comp Metabolic Pending 07/04/2016 Care Plan: Tsh Pending 07/04/2016 Care Plan: Lipid Pending 07/04/2016 Care Plan: %Hba1C LOINC : 79038-4 Pending 07/04/2016 Care Plan: Free T4 Pending 07/04/2016 Appointment: Eleonora Curran WPtel: [facility]7 [facility] [place] (15 min) Moderate 06/16/2016 Appointment: Eleonora Curran WPtel: [facility]3 [facility] (15 min) Moderate 05/06/2016 Visit Plan: Gastroenteritis - discussed need to stay away from milk products while acutely ill with diarrhea and nausea and emesis as it may worsen the symptoms. Liquids initially until the nausea improves, then recommend to advance to bland diet for 1 day, then advance as tolerated. Call if symptoms not improved. 03/31/2016 Appointment: Talya Hernandez WPtel: [address] [place] [address] (10 min) Simple 03/31/2016 Patient Education: Patient [...] not improving. 02/01/2016 Appointment: Talya Hernandez WPtel: [address] [place] [address] (30 min) Complex 02/01/2016 Patient Education: Patient Medication Summary Completed 02/01/2016 Visit Plan: Bronchitis - acute case of bronchitis identified. Pt has been given antibiotics, breathing treatments as appropriate, and pt has been instructed to call if symptoms are not improved, or if symptoms acutely worsen. 01/22/2016 Appointment: Talya Hernandez WPtel: [address] [place], [place] [phone] (15 min) Moderate 01/22/2016 Patient Education: Patient [...] monitor 01/07/2016 [facility]ment[phone] (15 min) Moderate 01/07/2016 Patient Education: [...] stopped 09/17/2015 Appointment: [phone] (15 min) Moderate 09/17/2015 Patient Education: [...] Hypertension Completed 05/29/2015 Appointment: Eleonora Curran WPtel: [phone] [facility] (15 min) Moderate 05/22/2015 Appointment: (15 min) [...] of control. 12/12/2014 Appointment: [phone] (15 min) Moderate 12/12/2014 Patient Education: Patient Medication Summary Completed 12/12/2014 Patient Education: Hypertension Completed 12/12/2014 Appointment: [facility]el[phone] [place] Follow up 11/28/2014 Patient Education: Patient Medication [...] starting to become less controlled.michaela sample - [id number] exp 02/2016 novonordisk Hypertension - well controlled - continue with current medications, continue with no added salt diet. Pt has been encouraged to exercise daily. The pt has been advised to call the office if there are any acute concerns about change in blood pressure readings at home. 09/04/2014 Appointment: [facility] Curran [facility]Ptel[phone] [place] Follow up 09/04/2014 Patient Education: Patient Medication Summary Completed 09/04/2014 Patient Education: Hypertension Completed 09/04/2014 Care Plan: Referral Order SNOMED-CT : [id number] Ordered 09/04/2014 Visit Plan: Hypertension - well [...] stop metformin 08/04/2014 Appointment: Eleonora Curran WPtel: [facility] Follow up 08/04/2014 Patient Education: Patient Medication Summary Completed 08/04/2014 Patient Education: Hypertension Completed 08/04/2014 Visit Plan: Thyroid nodules-nodule on left lobe has increased in size-biopsy scheduled for Decrease renal function- secondary to dehydration-repeat labs-maintain adequate oral intake-follow up with gutter installer as scheduled DM-hgb a1c improved-continue with same [...] Completed 01/05/2014 Appointment: [facility] Cur[facility]Ptel[phone] Follow up 01/03/2014 Visit Plan: Diabetes [...] to relax. 10/10/2013 Appointment: [facility] Cur[facility]Ptel[phone] Follow up 10/10/2013 Patient Education: Patient Medication Summary Completed 10/10/2013 Patient Education: Hypertension Completed 10/10/2013 Appointment: [phone] Follow up 09/13/2013 Appointment: [facility] Currna [facility]Ptel[phone] Follow up 08/03/2013 Visit Plan: Diabetes Mellitus [...] options. 08/02/2013 Appointment: [facility] Cur[facility]Ptel[phone] Follow up 08/02/2013 Patient Education: Patient [...] care. 06/30/2013 Appointment: [facility] Cur[facility]Ptel[phone] Sick 06/30/2013 Patient Education: Patient Medication Summary [...] patient today. 06/20/2013 Appointment: Eleonora Curran WPtel: [phone] [facility] Diabetic education 06/20/2013 Patient Education: Patient Medication Summary Completed 06/20/2013 Appointment: Eleonora Curran WPtel: [phone] [facility] Follow up 06/13/2013 Visit Plan: Shoulder [...] than before her acute bronchitis. 02/21/2013 Appointment: Magdy Eleonora WPtel: [phone] [facility] Sick 02/21/2013 Patient Education: Patient Medication Summary [...] months. 12/13/2012 Appointment: Eleonora Curran WPtel: [phone] [facility] Follow up 12/13/2012 Patient Education: Patient [...] normal liver response to medications. 09/23/2012 Appointment: l[facility]eonora Curran [facility]Ptel[phone] Follow up 09/23/2012 Patient Education: Patient [...] home. 06/14/2012 Appointment: [facility] Hernandez [facility]Ptel[phone] Follow up 06/14/2012 Patient Education: Patient Medication Summary Completed 06/14/2012 Patient Education: Hypertension Completed 06/14/2012 Visit Plan: Hthps-dclkd-ykwt aches-suspect influenza- patient no indication for tamiflu [...] less controlled. 05/21/2012 Appointment: Talya Hernandez WPtel: [phone] [phone] New Patient 05/21/2012 Patient Education: Patient Medication [...] starting to become less controlled.christophertoza sample - [id number] exp 02/2016 novonordisk Hypertension - well controlled [...] in 3 months. I SENT ZITHROMAX TO [facility]-2 PILLS TODAY AND THEN 1 PILL DAILY UNTIL GONE. I ALSO SENT A PRESCRIPTION FOR DIFLUCAN FOR A YEAST INFECTION. Recommend PROBIOTIC twice daily-lactobacillus. [facility]HEA PERSISTS OR WORSENS, START FLAGYL 500MG THREE TIMES DAILY-I SENT IT TO [facility]. I will call phenergan with codeine cough syrup to [facility]. Okay to take 5- 10ml every 6 hours as needed for cough. . Pzguq-nfkgn-lgfr aches-suspect influenza-patient no indication for tamiflu due [...] control. Trulicity started - victoza stopped Plan: (10868) FLU VAC NO PRSV 4 SHAKILA 3 [...] dehydration-repeat labs-maintain adequate oral intake-follow up with gutter installer as scheduled DM-hgb a1c improved-continue with same [...] pt to call if not improving. . Hypertension - well controlled - continue with current medications, continue with no added salt diet. Pt has been encouraged to exercise daily. The pt has been advised to call the office if there are any acute concerns about change in blood pressure readings at home. Diabetes Mellitus - improved control per pt's report, RX for [employer] aysha CGM for improved checking of her FSBS and therefore more accurate FSBS reports. I have recommended for the [...] are starting to become less controlled. Right sided stoke with left sided weakness - recommended continue with physical therapy with Leonardo Wyman and rx for handicap julio for 6 months.
--- OUTSIDE RECORDS SUMMARY | 2018-03-31 09:16 | XMS REPORT | CCD ---
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 Unknown Has never used illegal drugs 05/21/2012 Allergies, Adverse Reactions, Alerts Substance Reaction Codes Entered Date Inactivated Date Status * NO KNOWN ENVIRONMENTAL ALLERGIES Unknown 05/21/2012 No Inactive Date Active * NO KNOWN FOOD ALLERGIES Unknown 05/21/2012 No Inactive Date Active ciprofloxacin hives RxNorm: 92140 11/22/2014 No Inactive Date Active PNEUMOCOCCAL VACCINE [...] 50 mg tablet,extended release 24 hr RxNorm: 784427 TAKE 1 TABLET BY MOUTH ONCE DAILY 03/29/2018 No Stop Date Active Prozac 40 mg capsule RxNorm: 248324 1 Capsule(s) PO daily 03/0504/03/2018 Active Prozac 40 mg capsule RxNorm: 708019 1 Capsule(s) PO daily 03/0503/04/2018 Inactive amoxicillin 500 mg capsule RxNorm: 014500 1 Capsule(s) PO TID 02/22/2018 02/28/2018 Inactive Kenalog 40 mg/mL suspension for injection RxNorm: 6118071 Milliliter(s) Inj 02/22/2018 02/22/2018 Inactive Prozac 20 mg capsule RxNorm: 298249 1 Capsule(s) PO daily 02/2203/01/2018 Inactive Diflucan 150 mg tablet RxNorm: 031011 1 Tablet(s) PO daily 02/26/2018 Inactive levothyroxine 88 mcg tablet RxNorm: 132773 TAKE 1 TABLET BY MOUTH ONCE DAILY 02/15/2018 No Stop Date Active Cymbalta 60 mg capsule,delayed release RxNorm: 049730 TAKE 1 CAPSULE BY MOUTH ONCE DAILY 02/15/2018 No Stop Date Active Diflucan 150 mg tablet RxNorm: 287021 1 Tablet(s) PO daily No Stop Date Active Xultophy 100/3.6 100 unit-3.6 mg/mL (3 mL) subcutaneous insulin pen RxNorm: 8163886 30 Unit(s) SQ daily 01/07/20182017 Inactive Xultophy 100/3.6 100 unit-3.6 mg/mL (3 mL) subcutaneous insulin pen RxNorm: 0262268 22 Unit(s) SQ daily 12/03/20172017 Inactive Xultophy 100/3.6 100 unit-3.6 mg/mL (3 mL) subcutaneous insulin pen RxNorm: 6373152 20 Unit(s) SQ daily 11/27/20172017 Inactive Xultophy 100/3.6 100 unit-3.6 mg/mL (3 mL) subcutaneous insulin pen RxNorm: 3032461 20 Unit(s) SQ daily 11/27/20172017 Inactive Xultophy 100/3.6 100 unit-3.6 mg/mL (3 mL) subcutaneous insulin pen RxNorm: 9885029 16 Unit(s) SQ daily 10/26/20172017 Inactive Xultophy 100/3.6 100 unit-3.6 mg/mL (3 mL) subcutaneous insulin pen RxNorm: 9067647 16 Unit(s) SQ daily 10/26/20172017 Inactive potassium chloride ER 10 mEq tablet,extended release RxNorm: 485704 1 Tablet(s) PO TIW 10/21/2017 10/15/2018 Active Diflucan 150 mg tablet RxNorm: 254588 TAKE ONE TABLET BY MOUTH ONCE DAILY 10/21/2017 01/06/2018 Inactive Cymbalta 60 mg capsule,delayed release RxNorm: 169496 1 Capsule(s) PO daily 10/07/2017 02/03/2018 Inactive potassium chloride ER 10 mEq tablet,extended release RxNorm: 758268 TAKE ONE TABLET BY MOUTH TWICE A WEEK 10/07/2017 Inactive Lipitor 20 mg tablet RxNorm: 721074 TAKE ONE TABLET BY MOUTH ONCE DAILY IN THE EVENING 09/04/2017 No Stop Date Active metoprolol succinate ER 50 mg tablet,extended release 24 hr RxNorm: 200780 TAKE ONE TABLET BY MOUTH ONCE DAILY 09/04/2017 03/28/2018 Inactive Victoza 3-To 0.6 mg/0.1 mL (18 mg/3 mL) subcutaneous pen injector RxNorm: 191788 Milligram(s) SQ 09/02/2017 05/24/2019 Active Diflucan 150 mg tablet RxNorm: 318287 TAKE ONE TABLET BY MOUTH ONCE DAILY 09/02/2017 10/20/2017 Inactive potassium chloride ER 10 mEq tablet,extended release RxNorm: 828413 TAKE ONE TABLET BY MOUTH TWICE A WEEK 08/10/2017 Inactive levothyroxine 88 mcg tablet RxNorm: 873862 TAKE ONE TABLET BY MOUTH ONCE DAILY 08/10/2017 02/14/2018 Inactive Diflucan 150 mg tablet RxNorm: 753700 1 Tablet(s) PO daily 07/20/2017 Inactive Diflucan 150 mg tablet RxNorm: 530823 1 Tablet(s) PO daily 07/09/2017 Inactive Cymbalta 60 mg capsule,delayed release RxNorm: 700066 1 Capsule(s) PO daily 07/10/2017 07/09/2017 Inactive Cymbalta 60 mg capsule,delayed release RxNorm: 948585 1 Capsule(s) PO daily 07/10/2017 10/06/2017 Inactive Diflucan 150 mg tablet RxNorm: 682318 1 Tablet(s) PO daily 07/14/2017 Inactive Wellbutrin XL 150 mg 24 hr tablet, extended release RxNorm: 552034 1 Tablet(s) PO daily 06/08/2017 07/09/2017 Inactive Victoza 3-To 0.6 mg/0.1 mL (18 mg/3 mL) subcutaneous pen injector RxNorm: 389399 Milligram(s) SQ 06/08/2017 09/01/2017 Inactive Initiate at 0.6 mg per day for one week then increase to 1.2 mg. Dispense qty sufficient hydrochlorothiazide 25 mg tablet RxNorm: 389993 TAKE ONE TABLET BY MOUTH ONCE DAILY 05/25/2017 No Stop Date Active citalopram 40 mg tablet RxNorm: 160257 TAKE ONE TABLET BY MOUTH ONCE DAILY 05/13/2017 07/09/2017 Inactive potassium chloride ER 10 mEq tablet,extended release RxNorm: 423144 TAKE ONE TABLET BY MOUTH TWICE A WEEK 03/25/2017 Inactive hydrochlorothiazide 25 mg tablet RxNorm: 609570 TAKE ONE TABLET BY MOUTH ONCE DAILY 02/23/2017 05/24/2017 Inactive levothyroxine 88 mcg tablet RxNorm: 382582 TAKE ONE TABLET BY MOUTH ONCE DAILY 01/28/2017 07/26/2017 Inactive Trulicity 1.5 mg/0.5 mL subcutaneous pen injector RxNorm: 4815821 INJECT ONE SYRINGE SUBCUTANEOUSLY ONCE A WEEK 01/27/2017 07/09/2017 Inactive Diflucan 150 mg tablet RxNorm: 370483 1 Tablet(s) PO daily 12/31/2016 Inactive Invokana 100 mg tablet RxNorm: 5008406 1 Tablet(s) PO daily 11/201602/03/2017 Inactive Invokana 100 mg tablet RxNorm: 4389716 1 Tablet(s) PO daily 11/201612/01/2016 Inactive potassium chloride ER 10 mEq tablet,extended release RxNorm: 516761 1 Tablet(s) PO BIW 11/17/2016 11/16/2016 Inactive metformin 500 mg tablet RxNorm: 300816 1 Tablet(s) PO BID 11/1712/01/2016 Inactive potassium chloride ER 10 mEq tablet,extended release RxNorm: 450528 1 Tablet(s) PO BIW 11/17/2016 11/16/2016 Inactive potassium chloride ER 10 mEq tablet,extended release RxNorm: 042410 1 Tablet(s) PO 2 times weekly 11/17/2016 10/06/2017 Inactive Diflucan 150 mg tablet RxNorm: 349053 1 Tablet(s) PO daily 09/18/2016 Inactive Diflucan 150 mg tablet RxNorm: 971145 1 Tablet(s) PO daily 09/23/2016 Inactive amoxicillin 500 mg tablet RxNorm: 730217 1 Tablet(s) PO BID 09/25/2016 Inactive metoprolol succinate ER 50 mg tablet,extended release 24 hr RxNorm: 659731 Tablet (s) TAKE ONE TABLET BY MOUTH ONCE DAILY 08/11/2016 08/05/2017 Inactive Lipitor 20 mg tablet RxNorm: 521692 1 Tablet(s) PO QPM 201609/03/2017 Inactive Questran Light 4 gram oral powder RxNorm: 2683952 1 PO TID 05/25/2017 Inactive Trulicity 1.5 mg/0.5 mL subcutaneous pen injector RxNorm: 3502818 0.5 Milliliter(s ) SQ QW 08/11/2016 01/07/2017 Inactive levothyroxine 88 mcg tablet RxNorm: 433192 TAKE ONE TABLET BY MOUTH ONCE DAILY 07/28/2016 01/23/2017 Inactive Trulicity 0.75 mg/0.5 mL subcutaneous pen injector RxNorm: 3833346 INJECT THREE- FOURTHS MG(S) SUBCUTANEOUSLY ONCE A WEEK 07/01/2016 08/10/2016 Inactive metoprolol succinate ER 50 mg tablet,extended release 24 hr RxNorm: 068654 TAKE ONE TABLET BY MOUTH ONCE DAILY 06/11/2016 08/09/2016 Inactive citalopram 40 mg tablet RxNorm: 890356 TAKE ONE TABLET BY MOUTH ONCE DAILY 04/14/2016 05/12/2017 Inactive Diflucan 150 mg tablet RxNorm: 822232 1 Tablet(s) PO daily 01/24/2016 Inactive hydrochlorothiazide 25 mg tablet RxNorm: 994177 Tablet(s) 1 TABLET(S) PO DAILY 01/25/2016 01/18/2017 Inactive Diflucan 150 mg tablet RxNorm: 131614 1 Tablet(s) PO daily 01/31/2016 Inactive Zithromax Z-To 250 mg tablet RxNorm: 748505 1 Tablet(s) PO daily 01/24/2016 01/23/2016 Inactive zpack Zithromax Z-To 250 mg tablet RxNorm: 563801 1 Tablet(s) PO daily 01/24/2016 01/28/2016 Inactive zpack prednisone 10 mg tablets in a dose pack RxNorm: 786789 1 Tablet(s) PO as directed 01/24/2016 01/31/2016 Inactive 6-5-4-3-2-1 Kenalog 40 mg/mL suspension for injection RxNorm: 5724489 Milliliter(s) Inj 01/22/2016 01/22/2016 Inactive prednisone 20 mg tablet RxNorm: 588818 2 Tablet(s) PO daily 01/24/2016 Inactive start tomorrow Trulicity 0.75 mg/0.5 mL subcutaneous pen injector RxNorm: 7437355 0.75 Milligram( s) SQ QW 01/18/2016 06/30/2016 Inactive levothyroxine 88 mcg tablet RxNorm: 968094 TAKE ONE TABLET BY MOUTH ONCE DAILY 01/17/2016 07/14/2016 Inactive Trulicity 0.75 mg/0.5 mL subcutaneous pen injector RxNorm: 3994698 0.75 Milligram( s) SQ QW 12/03/2015 01/01/2016 Inactive Vimovo 500 mg-20 mg tablet,immediate and delay release RxNorm: 662198 1 Tablet(s) PO BID 12/03/2015 03/30/2016 Inactive metoprolol succinate ER 50 mg tablet,extended release 24 hr RxNorm: 406261 1 Tablet(s) PO daily 10/23/2015 05/19/2016 Inactive Trulicity 0.75 mg/0.5 mL subcutaneous pen injector RxNorm: 0381412 0.75 Milligram( s) SQ QW 09/17/2015 10/16/2015 Inactive Victoza 3-To 0.6 mg/0.1 mL (18 mg/3 mL) subcutaneous pen injector RxNorm: 028522 1.8 MILLIGRAM(S) SQ DAILY 07/16/201509/15 Inactive this is just a correction of her current dosing - she does not need a refill levothyroxine 88 mcg tablet RxNorm: 696250 1 TABLET(S) PO DAILY 07/16/2015 01/11/2016 Inactive metoprolol succinate ER 50 mg tablet,extended release 24 hr RxNorm: 144521 1 Tablet(s) PO daily 05/29/2015 10/22/2015 Inactive levothyroxine 88 mcg tablet RxNorm: 888509 1 Tablet(s) PO daily 04/17/2015 07/15/2015 Inactive levothyroxine 88 mcg tablet RxNorm: 193357 1 Tablet(s) PO daily 04/17/2015 04/16/2015 Inactive citalopram 40 mg tablet RxNorm: 512716 1 Tablet(s) PO daily 04/13/2016 Inactive metoprolol tartrate 25 mg tablet RxNorm: 724353 1 Tablet(s) BID 01/17/2015 05/28/2015 Inactive hydrochlorothiazide 25 mg tablet RxNorm: 585440 1 TABLET(S) PO DAILY 01/01/2015 12/26/2015 Inactive Kenalog 40 mg/mL suspension for injection RxNorm: 7361040 Milliliter(s) Inj 11/23/2014 11/23/2014 Inactive Kenalog 40 mg/mL suspension for injection RxNorm: 5545122 60 Milliliter(s) Inj 11/22/2014 11/22/2014 Inactive Zyrtec 10 mg tablet RxNorm: 5409929 1 Tablet(s) PO daily 11/2212/21/2014 Inactive prednisone 10 mg tablets in a dose pack RxNorm: 919429 1 Tablet(s) PO as directed 11/22/2014 05/28/2015 Inactive 6-5-4-3-2-1 Flagyl 500 mg tablet RxNorm: 070090 1 Tablet(s) PO TID 201411/20/2014 Inactive metoprolol tartrate 25 mg tablet RxNorm: 427262 1 Tablet(s) PO BID 09/06/2014 08/10/2016 Inactive metoprolol tartrate 25 mg tablet RxNorm: 123807 1 TABLET(S) PO BID PT TO START WITH 1/2 PILL TWICE DAILY X 1 WEEK, THEN INCREASE TO 1 PILL BID THEREAFTER 09/06/2014 01/16/2015 Inactive citalopram 20 mg tablet RxNorm: 296169 1 Tablet(s) PO daily 02/201503/13/2015 Inactive Victoza 3-To 0.6 mg/0.1 mL (18 mg/3 mL) subcutaneous pen injector RxNorm: 934304 1.8 MILLIGRAM(S) SQ DAILY 09/04/201405/31 Inactive this is just a correction of her current dosing - she does not need a refill metoprolol tartrate 25 mg tablet RxNorm: 527373 1 Tablet(s) PO BID pt to start with 1/2 pill twice daily x 1 week, then increase to 1 pill bid thereafter 08/04/2014 09/02/2014 Inactive Lantus Solostar 100 unit/mL (3 mL) subcutaneous insulin pen RxNorm: 269543 Unit( s) INJECT 10 UNITS SUBCUTANEOUSLY DAILY. DOCTOR WILL ADJUST MEDICATION BASED ON BLOOD GLUCOSE LEVELS 08/04/20142014 Inactive hydrochlorothiazide 25 mg tablet RxNorm: 820839 1 TABLET(S) PO DAILY 07/12/2014 01/24/2016 Inactive hydrochlorothiazide 25 mg tablet RxNorm: 996278 1 Tablet(s) PO daily 07/12/2014 12/31/2014 Inactive acyclovir 400 mg tablet RxNorm: 161307 1 Tablet(s) PO QID 05/0905/08/2014 Inactive acyclovir 400 mg tablet RxNorm: 515745 1 Tablet(s) PO QID 05/0905/15/2014 Inactive alprazolam 0.25 mg tablet RxNorm: 663143 TAKE 1 TABLET BY MOUTH TWICE DAILY NEEDED FOR ANXIETY 04/24/2014 05/23/2014 Inactive (Response to an electronic controlled substance refill request - RxReferenceNumber: [id number]|0|1) metoprolol succinate ER 100 mg tablet,extended release 24 hr RxNorm: 164543 1 TABLET(S) PO DAILY TAKE 1 TABLET BY MOUTH DAILY 04/24/2014 08/03/2014 Inactive Cardizem LA 360 mg tablet,extended release RxNorm: 262780 1 TABLET(S) PO DAILY TAKE 1 TABLET BY MOUTH DAILY 04/24/2014 Inactive metformin ER 500 mg 24 hr tablet,extended release RxNorm: 347270 1 Tablet(s) PO daily 04/11/2014 08/03/2014 Inactive Lantus Solostar 100 unit/mL (3 mL) subcutaneous insulin pen RxNorm: 654095 INJECT 40 UNITS SUBCUTANEOUSLY DAILY. DOCTOR WILL ADJUST MEDICATION BASED ON BLOOD GLUCOSE LEVELS 03/20/20142014 Inactive Bentyl 10 mg capsule RxNorm: 892882 1 Capsule(s) PO TID PRN 02/201405/28/2015 Inactive potassium chloride ER 10 mEq tablet,extended release RxNorm: 971043 1 Tablet(s) PO daily 01/05/2014 01/11/2014 Inactive Lantus Solostar 100 unit/mL (3 mL) subcutaneous insulin pen RxNorm: 554160 45 Unit(s) SQ daily doctor to adjust medications based on blood glucose results 01/05/2014 12/02/2015 Inactive Diovan 320 mg tablet RxNorm: 032849 1 Tablet(s) PO daily 201308/03/2014 Inactive metformin ER 1,000 mg tablet,extended release 24hr RxNorm: 109397 1 Tablet(s) PO daily 10/26/2013 04/10/2014 Inactive Lantus Solostar 100 unit/mL (3 mL) subcutaneous insulin pen RxNorm: 927092 40 Unit(s) SQ daily doctor to adjust medications based on blood glucose results 10/10/2013 01/04/2014 Inactive alprazolam 0.25 mg tablet RxNorm: 951007 1 Tablet(s) PO BID 04/24/2014 Inactive Percocet 5 mg-325 mg tablet RxNorm: 8314194 1-2 Tablet(s) PO Q6 PRN 10/03/2013 05/28/2015 Inactive Celexa 40 mg tablet RxNorm: 625670 Tablet(s) PO TAKE 1 TABLET BY MOUTH DAILY 09/28/2013 09/03/2014 Inactive hydrochlorothiazide 25 mg tablet RxNorm: 551627 1 Tablet(s) PO daily 09/22/2013 06/18/2014 Inactive Lantus Solostar 100 unit/mL (3 mL) subcutaneous insulin pen RxNorm: 739421 35 Unit(s) SQ daily doctor to adjust medications based on blood glucose results 08/02/2013 10/09/2013 Inactive Cardizem LA 360 mg tablet,extended release RxNorm: 529054 1 Tablet(s) PO daily TAKE 1 TABLET BY MOUTH DAILY 07/18/2013 Inactive Cardizem LA 360 mg tablet,extended release RxNorm: 537879 Tablet(s) PO TAKE 1 TABLET BY MOUTH DAILY 07/18/20132014 Inactive metoprolol succinate ER 100 mg tablet,extended release 24 hr RxNorm: 311780 1 Tablet(s) PO daily TAKE 1 TABLET BY MOUTH DAILY 07/18/2013 04/13/2014 Inactive metoprolol succinate ER 100 mg tablet,extended release 24 hr RxNorm: 509598 Tablet (s) PO TAKE 1 TABLET BY MOUTH DAILY 07/18/2013 08/03/2014 Inactive Lantus Solostar 100 unit/mL (3 mL) subcutaneous insulin pen RxNorm: 977487 30 Unit(s) SQ daily doctor to adjust medications based on blood glucose results 07/04/2013 08/01/2013 Inactive Victoza 3-To 0.6 mg/0.1 mL (18 mg/3 mL) subcutaneous pen injector RxNorm: 728794 1.8 Milligram(s) SQ daily 06/30/201303/26 Inactive this is just a correction of her current dosing - she does not need a refill metformin ER 1,000 mg tablet,extended release 24hr RxNorm: 731996 1 Tablet(s) PO daily 06/30/2013 10/25/2013 Inactive Lantus Solostar 100 unit/mL (3 mL) subcutaneous insulin pen RxNorm: 714351 20 Unit(s) SQ daily doctor to adjust medications based on blood glucose results 06/30/2013 07/03/2013 Inactive Lantus Solostar 100 unit/mL (3 mL) subcutaneous insulin pen RxNorm: 503907 15 Unit(s) SQ daily doctor to adjust medications based on blood glucose results 06/23/2013 06/29/2013 Inactive Victoza 3-To 0.6 mg/0.1 mL (18 mg/3 mL) subcutaneous pen injector RxNorm: 723545 3mg Milliliter(s) SQ daily 90 days worth 06/20/2013 06/29/2013 Inactive hydrochlorothiazide 25 mg tablet RxNorm: 995719 1 Tablet(s) PO daily 06/13/2013 09/21/2013 Inactive ketorolac 60 mg/2 mL intramuscular solution RxNorm: 962327 2 Milliliter(s) IM 06/06/2013 06/06/2013 Inactive Lantus Solostar 100 unit/mL (3 mL) subcutaneous insulin pen RxNorm: 259671 10 Unit(s) SQ daily doctor to adjust medications based on blood glucose results 06/06/2013 06/22/2013 Inactive naproxen 500 mg tablet RxNorm: 436906 1 Tablet(s) PO BID 201308/04/2013 Inactive hydrochlorothiazide 25 mg tablet RxNorm: 662871 1 Tablet(s) PO daily 06/06/2013 06/12/2013 Inactive Victoza 3-To 0.6 mg/0.1 mL (18 mg/3 mL) subcutaneous pen injector RxNorm: 718231 3mg Milliliter(s) SQ daily 90 days worth 05/19/2013 06/19/2013 Inactive Diflucan 150 mg tablet RxNorm: 982045 1 Tablet(s) PO daily 05/12/2013 Inactive Diflucan 150 mg tablet RxNorm: 524888 1 Tablet(s) PO daily 05/19/2013 Inactive Cardizem LA 360 mg tablet,extended release RxNorm: 436841 Tablet(s) PO TAKE 1 TABLET BY MOUTH DAILY 04/22/20132013 Inactive metoprolol succinate ER 100 mg tablet,extended release 24 hr RxNorm: 615459 Tablet (s) PO TAKE 1 TABLET BY MOUTH DAILY 04/14/2013 07/17/2013 Inactive Diflucan 150 mg tablet RxNorm: 231988 1 Tablet(s) PO daily 03/28/2013 Inactive Diflucan 150 mg tablet RxNorm: 625343 1 Tablet(s) PO daily 03/21/2013 Inactive Diovan 320 mg tablet RxNorm: 264542 1 Tablet(s) PO daily 201212/09/2013 Inactive cefdinir 300 mg capsule RxNorm: 429771 1 Capsule(s) PO BID 02/25/2013 Inactive Phenergan with Codeine Syrup RxNorm: 5-10 Milliliter(s) PO Q6 PRN USE PRN FOR COUGH 02/21/2013 03/20/2013 Inactive 8 OUNCES Victoza 3-To 0.6 mg/0.1 mL (18 mg/3 mL) subcutaneous pen injector RxNorm: 407718 3mg Milliliter(s) SQ daily 90 days worth 12/09/2012 03/08/2013 Inactive scopolamine 1.5 mg transdermal 72 hour patch RxNorm: 194810 1 Patch TD Q72H 10/26/2012 01/04/2014 Inactive scopolamine 1.5 mg 72 hr Transderm Patch RxNorm: 812743 1 Patch TD Q72H 10/26/2012 10/25/2012 Inactive metformin ER 1,000 mg tablet,extended release 24hr RxNorm: 184849 1 Tablet(s) PO BID 10/11/2012 06/29/2013 Inactive Victoza 3-To 0.6 mg/0.1 mL (18 mg/3 mL) Sub-Q Pen Injector RxNorm: 318422 1.8 Milliliter(s) SQ daily 1.8 mg dose daily 09/23/2012 12/08/2012 Inactive Victoza 3-To 0.6 mg/0.1 mL (18 mg/3 mL) Sub-Q Pen Injector RxNorm: 181917 3.0 Milliliter(s) SQ daily 1.2 + 1.8 mg dose daily 201209/22/2012 Inactive Celexa 40 mg tablet RxNorm: 304410 1 Tablet(s) PO daily TAKE ONE TABLET BY MOUTH DAILY 09/21/2012 05/18/2013 Inactive Cardizem LA 360 mg tablet,extended release RxNorm: 097245 1 Tablet(s) PO daily 07/20/2012 04/15/2013 Inactive metoprolol succinate ER 100 mg tablet,extended release 24 hr RxNorm: 566051 1 Tablet(s) PO daily 07/20/2012 04/13/2013 Inactive Byetta 10 mcg/0.04 mL per dose Sub-Q Pen Injector RxNorm: 611318 1 Milliliter(s) SQ BID 06/18/2012 09/22/2012 Inactive Diovan 320 mg tablet RxNorm: 202106 1 Tablet(s) PO daily 201203/14/2013 Inactive metformin ER 1,000 mg tablet,extended release 24hr RxNorm: 191282 1 Tablet(s) PO BID 06/14/2012 09/11/2012 Inactive metformin ER 1,000 mg tablet,extended release 24hr RxNorm: 460548 1 Tablet(s) PO 06/14/2012 06/13/2012 Inactive Livalo 4 mg tablet RxNorm: 348795 1 Tablet(s) PO daily 201201/04/2014 Inactive Celexa 40 mg tablet RxNorm: 675828 1 Tablet(s) PO daily 201209/21/2012 Inactive Accu-Chek Instant Glucose Test Strips RxNorm: 1 Miscellaneous daily accucheck ratna glucometer 05/21/2012 06/14/2013 Inactive Diflucan 150 mg tablet RxNorm: 922968 1 Tablet(s) PO daily 05/26/2012 Inactive Flagyl 500 mg tablet RxNorm: 173966 1 Tablet(s) PO TID 201205/27/2012 Inactive Minivelle 0.0375 mg/24 hr transdermal patch RxNorm: 8905620 1 Patch TD BIW No Start Date Active aspirin 81 mg tablet RxNorm: 501855 1 Tablet(s) PO daily No Start Date Active Cardizem LA 360 mg tablet,extended release RxNorm: 090216 1 Tablet(s) PO daily No Start Date 07/19/2012 Inactive metformin ER 750 mg tablet,extended release 24 hr RxNorm: 331864 1 Tablet(s) PO TID No Start Date 06/13/2012 Inactive Zithromax Z-To 250 mg tablet RxNorm: 891545 Tablet(s) PO No Start Date 06/13/2012 Inactive Diovan 320 mg tablet RxNorm: 957741 1 Tablet(s) PO daily No Start Date 06/17/2012 Inactive Byetta 10 mcg/0.04 mL per dose Sub-Q Pen Injector RxNorm: 858687 1 Milliliter(s) SQ BID No Start Date 06/17/2012 Inactive Vivelle 0.05 mg/24 hr Transderm Patch RxNorm: 527704 1 Patch TD H5brnxr No Start Date 12/03/2015 Inactive Fish Oil 1,000 mg capsule RxNorm: 1 Capsule(s) PO BID No Start Date 05/29/2015 Inactive Celexa 40 mg tablet RxNorm: 766944 1 Tablet(s) PO daily No Start Date 06/09/2012 Inactive levothyroxine 100 mcg tablet RxNorm: 327595 1 Tablet(s) PO daily No Start Date 04/16/2015 Inactive Fish Oil 1,000 mg capsule RxNorm: 1 Capsule(s) PO daily No Start Date 12/02/2015 Inactive Vitamin B-12 1,000 mcg/mL oral drops RxNorm: 9929001 1 Milliliter(s) PO daily No Start Date 12/02/2015 Inactive metoprolol succinate ER 100 mg tablet,extended release 24 hr RxNorm: 098877 1 Tablet(s) PO daily No Start Date 2012 Inactive promethazine-codeine 6.25 mg-10 mg/5 mL Syrup RxNorm: 108668 5-10 Milliliter(s) PO Q6 PRN No Start Date 12/12/2012 Inactive Percocet 5 mg-325 mg tablet RxNorm: 2623715 1-2 Tablet(s) PO Q6 PRN No Start Date 10/02/2013 Inactive hydrochlorothiazide 25 mg tablet RxNorm: 269783 1 Tablet(s) PO daily No Start Date 06/05/2013 Inactive Victoza 2-To 0.6 mg/0.1 mL (18 mg/3 mL) subcutaneous pen injector RxNorm: 055156 Milligram(s) SQ 1.8mg daily No Start Date 09/13/2013 Inactive Livalo 4 mg tablet RxNorm: 901388 1 Tablet(s) PO daily No Start Date 06/09/2012 Inactive Medication Administered Medication Codes Instructions Start Date Status Kenalog 40 mg/mL suspension for injection RxNorm: 6277547 Milliliter 02/22/2018 No longer Active Kenalog 40 mg/mL suspension for injection RxNorm: 4346138 Milliliter 01/22/2016 No longer Active Kenalog 40 mg/mL suspension for injection RxNorm: 7249221 Milliliter 11/23/2014 No longer Active Kenalog 40 mg/mL suspension for injection RxNorm: 5404681 Milliliter 11/22/2014 No longer Active ketorolac 60 mg/2 mL intramuscular solution RxNorm: 269193 2Milliliter 06/06/2013 No longer Active Immunizations Vaccine [...] 29.5 pg 01/05/2018 Cbc With Differential Ord2 Darke% 5.5 % 01/05/2018 Cbc With Differential Ord2 [...] 1.46 K/ul 01/05/2018 Cbc With Differential Ord2 Darke ABS# 0.5 K/ul 01/05/2018 Cbc With Differential Ord2 Eos ABS# 0.2 K/ul 01/05/2018 Cbc With Differential Ord2 Baso ABS# 0.1 K/ul 01/05/2018 Free T4 Bcw307 FREE T4 0.92 ng/dL 01/05/2018 Lipid Ord30 CHOL 200 mg/dL 01/05/2018 Lipid Ord30 HDL 48.0 mg/dl 01/05/2018 Lipid Ord30 TRIG 143 mg/dL 01/05/2018 Lipid Ord30 LDL 123 mg/dL 01/05/2018 Lipid Ord30 C/HDL 4.2 Ratio 01/05/2018 Comp Metabolic Fav559 NA 142 mEq/L 01/05/2018 Comp Metabolic Kjn139 K 3.9 mEq/L 01/05/2018 Comp Metabolic Pbt911 CL 99 mEq/L 01/05/2018 Comp Metabolic Rlx926 CO2 34.0 mEq/L 01/05/2018 Comp Metabolic Bej785 ANION GAP 13 01/05/2018 Comp Metabolic Cjw446 GLUCOSE 205 mg/dL 01/05/2018 Comp Metabolic Ukz450 Creat 1.0 mg/dL 01/05/2018 Comp Metabolic Ygm806 eGFR 65 ml/min/1.73m2 01/05/2018 Comp Metabolic Kuc131 BUN 12 mg/dL 01/05/2018 Comp Metabolic Hxi432 B/C Ratio 12.6 Ratio 01/05/2018 Comp Metabolic Qyf888 CALCIUM 9.5 mg/dL 01/05/2018 Comp Metabolic Vlz990 ALK PHOS 150 U/L 01/05/2018 Comp Metabolic Sxx212 AST(SGOT) 16 U/L 01/05/2018 Comp Metabolic Odb366 ALT(SGPT) 15 U/L 01/05/2018 Comp Metabolic Zde901 BILI T 0.6 mg/dL 01/05/2018 Comp Metabolic Xqv439 ALBUMIN 3.9 g/dL 01/05/2018 Comp Metabolic Gog896 TPRO 6.6 g/dL 01/05/2018 Comp Metabolic Reo487 GLOB 2.7 g/dL 01/05/2018 Comp Metabolic Mii525 A/G Ratio 1.5 Ratio 01/05/2018 Comp Metabolic Ynn840 Osmo 289 mOsmo 01/05/2018 %Hba1C Cie750 % HbA1c 81205-5 10.9 % 01/05/2018 %Hba1C Dao468 Gluc Ave 266 mg/dL 01/05/2018 Lipid Ord30 [...] 89.6 fl 09/29/2017 Cbc With Differential Ord2 Darke% 5.5 % 09/29/2017 Cbc With Differential Ord2 [...] 1.39 K/ul 09/29/2017 Cbc With Differential Ord2 Darke ABS# 0.6 K/ul 09/29/2017 Cbc With Differential Ord2 Eos ABS# 0.1 K/ul 09/29/2017 Cbc With Differential Ord2 Baso ABS# 0.1 K/ul 09/29/2017 Comp Metabolic Wcf402 NA 140 mEq/L 09/29/2017 Comp Metabolic Rqm624 K 3.4 mEq/L 09/29/2017 Comp Metabolic Frd502 CL 96 mEq/L 09/29/2017 Comp Metabolic Dfm363 CO2 33.0 mEq/L 09/29/2017 Comp Metabolic Fbt070 ANION GAP 14 09/29/2017 Comp Metabolic Ixy020 GLUCOSE 287 mg/dL 09/29/2017 Comp Metabolic Ygd312 Creat 0.8 mg/dL 09/29/2017 Comp Metabolic Jrk003 eGFR 77 ml/min/1.73m2 09/29/2017 Comp Metabolic Knk323 BUN 13 mg/dL 09/29/2017 Comp Metabolic Csw747 B/C Ratio 15.9 Ratio 09/29/2017 Comp Metabolic Qpc594 CALCIUM 9.4 mg/dL 09/29/2017 Comp Metabolic Bva745 ALK PHOS 147 U/L 09/29/2017 Comp Metabolic Kkb452 AST(SGOT) 17 U/L 09/29/2017 Comp Metabolic Ovq024 ALT(SGPT) 25 U/L 09/29/2017 Comp Metabolic Yhu459 BILI T 0.7 mg/dL 09/29/2017 Comp Metabolic Lby706 ALBUMIN 4.2 g/dL 09/29/2017 Comp Metabolic Ips039 TPRO 6.8 g/dL 09/29/2017 Comp Metabolic Ddb458 GLOB 2.6 g/dL 09/29/2017 Comp Metabolic Der119 A/G Ratio 1.6 Ratio 09/29/2017 Comp Metabolic Ueb349 Osmo 290 mOsmo 09/29/2017 %Hba1C Iin099 % HbA1c 80165-1 11.4 % 09/29/2017 %Hba1C Qlb814 Gluc Ave 280 mg/dL 09/29/2017 Free T4 Isi255 FREE T4 1.14 ng/dL 09/29/2017 Tsh Ord6 TSH (3rd IS) 2.91 uIU/mL 09/29/2017 Lipid Ord30 CHOL 182 mg/dL 06/02/2017 Lipid Ord30 HDL 57.0 mg/dl 06/02/2017 Lipid Ord30 TRIG 126 mg/dL 06/02/2017 Lipid Ord30 LDL 100 mg/dL 06/02/2017 Lipid Ord30 C/HDL 3.2 Ratio 06/02/2017 %Hba1C Gcp035 % HbA1c 42866-4 8.2 % 06/02/2017 %Hba1C Swj245 Gluc Ave 189 mg/dL 06/02/2017 Comp Metabolic Rpp364 NA 143 mEq/L 11/12/2016 Comp Metabolic Wvl258 K 3.3 mEq/L 11/12/2016 Comp Metabolic Qno217 CL 102 mEq/L 11/12/2016 Comp Metabolic Ipb291 CO2 30.0 mEq/L 11/12/2016 Comp Metabolic Ipg449 ANION GAP 14 11/12/2016 Comp Metabolic Zhj844 GLUCOSE 141 mg/dL 11/12/2016 Comp Metabolic Zmy164 Creat 0.8 mg/dL 11/12/2016 Comp Metabolic Lth330 eGFR 76 ml/min/1.73m2 11/12/2016 Comp Metabolic Bae108 BUN 11 mg/dL 11/12/2016 Comp Metabolic Mjj424 B/C Ratio 13.3 Ratio 11/12/2016 Comp Metabolic Lep058 CALCIUM 9.2 mg/dL 11/12/2016 Comp Metabolic Cgb346 ALK PHOS 116 U/L 11/12/2016 Comp Metabolic Thd997 AST(SGOT) 21 U/L 11/12/2016 Comp Metabolic Rpu201 ALT(SGPT) 28 U/L 11/12/2016 Comp Metabolic Qmj665 BILI T 0.5 mg/dL 11/12/2016 Comp Metabolic Toa428 ALBUMIN 3.8 g/dL 11/12/2016 Comp Metabolic Xue178 TPRO 6.4 g/dL 11/12/2016 Comp Metabolic Wfh984 GLOB 2.6 g/dL 11/12/2016 Comp Metabolic Sow271 A/G Ratio 1.5 Ratio 11/12/2016 Comp Metabolic Bwn355 Osmo 287 mOsmo 11/12/2016 Lipid Ord30 CHOL [...] 16.9 % 11/12/2016 Cbc With Differential Ord2 Darke% 5.8 % 11/12/2016 Cbc With Differential Ord2 [...] 1.47 K/ul 11/12/2016 Cbc With Differential Ord2 Darke ABS# 0.5 K/ul 11/12/2016 Cbc With Differential Ord2 Eos ABS# 0.2 K/ul 11/12/2016 Cbc With Differential Ord2 Baso ABS# 0.0 K/ul 11/12/2016 Tsh Ord6 hTSH II 1.59 uIU/mL 11/12/2016 %Hba1C Cxw958 % HbA1c 47466-2 7.5 % 11/12/2016 %Hba1C Ebl981 Gluc Ave 169 mg/dL 11/12/2016 Free T4 Vqz545 FREE T4 0.91 ng/dL 11/12/2016 Cbc With [...] 29.7 pg 07/04/2016 Cbc With Differential Ord2 Darke% 7.1 % 07/04/2016 Cbc With Differential Ord2 [...] 1.10 K/ul 07/04/2016 Cbc With Differential Ord2 Darke ABS# 0.6 K/ul 07/04/2016 Cbc With Differential Ord2 Eos ABS# 0.1 K/ul 07/04/2016 Cbc With Differential Ord2 Baso ABS# 0.1 K/ul 07/04/2016 Lipid Ord30 CHOL 282 mg/dL 07/04/2016 Lipid Ord30 HDL 53.0 mg/dl 07/04/2016 Lipid Ord30 TRIG 136 mg/dL 07/04/2016 Lipid Ord30 LDL 202 mg/dL 07/04/2016 Lipid Ord30 C/HDL 5.3 Ratio 07/04/2016 Tsh Ord6 hTSH II 1.21 uIU/mL 07/04/2016 %Hba1C Wzh094 % HbA1c 58152-8 7.1 % 07/04/2016 %Hba1C Uzb188 Gluc Ave 157 mg/dL 07/04/2016 Comp Metabolic Cvq891 NA 141 mEq/L 07/04/2016 Comp Metabolic Haj635 K 3.5 mEq/L 07/04/2016 Comp Metabolic Oea355 CL 100 mEq/L 07/04/2016 Comp Metabolic Jjk139 CO2 34.0 mEq/L 07/04/2016 Comp Metabolic Uaq648 ANION GAP 11 07/04/2016 Comp Metabolic Fqq730 GLUCOSE 144 mg/dL 07/04/2016 Comp Metabolic Wan756 Creat 0.8 mg/dL 07/04/2016 Comp Metabolic Emk857 eGFR 75 ml/min/1.73m2 07/04/2016 Comp Metabolic Bzy268 BUN 10 mg/dL 07/04/2016 Comp Metabolic Gls423 B/C Ratio 11.9 Ratio 07/04/2016 Comp Metabolic Rrl787 CALCIUM 9.4 mg/dL 07/04/2016 Comp Metabolic Vuj070 ALK PHOS 116 U/L 07/04/2016 Comp Metabolic Jcf355 AST(SGOT) 16 U/L 07/04/2016 Comp Metabolic Fft210 ALT(SGPT) 17 U/L 07/04/2016 Comp Metabolic Xxo126 BILI T 0.6 mg/dL 07/04/2016 Comp Metabolic Ncl610 ALBUMIN 4.3 g/dL 07/04/2016 Comp Metabolic Ebw034 TPRO 7.0 g/dL 07/04/2016 Comp Metabolic Hnd831 GLOB 2.7 g/dL 07/04/2016 Comp Metabolic Has021 A/G Ratio 1.6 Ratio 07/04/2016 Comp Metabolic Voo015 Osmo 283 mOsmo 07/04/2016 Free T4 Lyh910 FREE T4 0.87 ng/dL 07/04/2016 Cbc With [...] 29.9 pg 03/31/2016 Cbc With Differential Ord2 Darke% 6.5 % 03/31/2016 Cbc With Differential Ord2 [...] 1.22 K/ul 03/31/2016 Cbc With Differential Ord2 Darke ABS# 0.4 K/ul 03/31/2016 Cbc With Differential Ord2 Eos ABS# 0.1 K/ul 03/31/2016 Cbc With Differential Ord2 Baso ABS# 0.0 K/ul 03/31/2016 Comp Metabolic Qvr773 NA 137 mEq/L 03/31/2016 Comp Metabolic Cds486 K 3.3 mEq/L 03/31/2016 Comp Metabolic Llo302 CL 101 mEq/L 03/31/2016 Comp Metabolic Sli530 CO2 26.0 mEq/L 03/31/2016 Comp Metabolic Ssy981 ANION GAP 13 03/31/2016 Comp Metabolic Yef847 GLUCOSE 150 mg/dL 03/31/2016 Comp Metabolic Pel621 Creat 0.9 mg/dL 03/31/2016 Comp Metabolic Xnu216 eGFR 71 ml/min/1.73m2 03/31/2016 Comp Metabolic Jmf429 BUN 13 mg/dL 03/31/2016 Comp Metabolic Ycb289 B/C Ratio 14.8 Ratio 03/31/2016 Comp Metabolic Qaz788 CALCIUM 8.8 mg/dL 03/31/2016 Comp Metabolic Fih536 ALK PHOS 103 U/L 03/31/2016 Comp Metabolic Fhy550 AST(SGOT) 18 U/L 03/31/2016 Comp Metabolic Qal521 ALT(SGPT) 21 U/L 03/31/2016 Comp Metabolic Iti320 BILI T 0.4 mg/dL 03/31/2016 Comp Metabolic Vdx904 ALBUMIN 3.9 g/dL 03/31/2016 Comp Metabolic Tjt838 TPRO 6.5 g/dL 03/31/2016 Comp Metabolic Yke621 GLOB 2.6 g/dL 03/31/2016 Comp Metabolic Jqm413 A/G Ratio 1.5 Ratio 03/31/2016 Comp Metabolic Qiw033 Osmo 277 mOsmo 03/31/2016 Cbc With Differential [...] 30.4 pg 02/12/2016 Cbc With Differential Ord2 Darke% 7.0 % 02/12/2016 Cbc With Differential Ord2 [...] 2.42 K/ul 02/12/2016 Cbc With Differential Ord2 Darke ABS# 0.7 K/ul 02/12/2016 Cbc With Differential Ord2 Eos ABS# 0.2 K/ul 02/12/2016 Cbc With Differential Ord2 Baso ABS# 0.1 K/ul 02/12/2016 Comp Metabolic Ldw889 NA 138 mEq/L 02/01/2016 Comp Metabolic Zrp128 K 4.3 mEq/L 02/01/2016 Comp Metabolic Yzi285 CL 101 mEq/L 02/01/2016 Comp Metabolic Rhv752 CO2 27.0 mEq/L 02/01/2016 Comp Metabolic Noc088 ANION GAP 14 02/01/2016 Comp Metabolic Oiv153 GLUCOSE 127 mg/dL 02/01/2016 Comp Metabolic Bjo116 Creat 1.0 mg/dL 02/01/2016 Comp Metabolic Ogo987 eGFR 61 ml/min/1.73m2 02/01/2016 Comp Metabolic Ncr455 BUN 21 mg/dL 02/01/2016 Comp Metabolic Rol216 B/C Ratio 20.8 Ratio 02/01/2016 Comp Metabolic Nnk186 CALCIUM 9.1 mg/dL 02/01/2016 Comp Metabolic Kew503 ALK PHOS 105 U/L 02/01/2016 Comp Metabolic Vsk782 AST(SGOT) 14 U/L 02/01/2016 Comp Metabolic Pej937 ALT(SGPT) 26 U/L 02/01/2016 Comp Metabolic Mkx735 BILI T 0.4 mg/dL 02/01/2016 Comp Metabolic Byb990 ALBUMIN 3.9 g/dL 02/01/2016 Comp Metabolic Wyp440 TPRO 6.7 g/dL 02/01/2016 Comp Metabolic Krt733 GLOB 2.8 g/dL 02/01/2016 Comp Metabolic Xos462 A/G Ratio 1.4 Ratio 02/01/2016 Comp Metabolic Ubp083 Osmo 280 mOsmo 02/01/2016 Tsh Ord6 hTSH [...] 91.5 fl 02/01/2016 Cbc With Differential Ord2 Darke% 5.8 % 02/01/2016 Cbc With Differential Ord2 [...] 3.74 K/ul 02/01/2016 Cbc With Differential Ord2 Darke ABS# 0.8 K/ul 02/01/2016 Cbc With Differential Ord2 Eos ABS# 0.2 K/ul 02/01/2016 Cbc With Differential Ord2 Baso ABS# 0.0 K/ul 02/01/2016 %Hba1C Alx906 % HbA1c 50334-2 6.9 % 01/07/2016 %Hba1C Oju053 Gluc Ave 151 mg/dL 01/07/2016 Tsh Ord6 hTSH II 0.99 uIU/mL 11/08/2015 Free T4 Xuo978 FREE T4 1.01 ng/dL 11/08/2015 %Hba1C Ius777 % HbA1c 96829-9 6.6 % 09/14/2015 %Hba1C Qdk338 Gluc Ave 143 mg/dL 09/14/2015 Lipid Ord30 [...] 29.9 pg 09/12/2015 Cbc With Differential Ord2 Darke% 5.9 % 09/12/2015 Cbc With Differential Ord2 [...] 1.48 K/ul 09/12/2015 Cbc With Differential Ord2 Darke ABS# 0.4 K/ul 09/12/2015 Cbc With Differential Ord2 Eos ABS# 0.1 K/ul 09/12/2015 Cbc With Differential Ord2 Baso ABS# 0.0 K/ul 09/12/2015 Cbc With Differential Ord2 New Analyzer Notice Please note new ref ranges starting 05-09-2015 due to implemntation of new five part differential hematolgy analyzer. 09/12/2015 Comp Metabolic Lss104 NA 139 mEq/L 09/12/2015 Comp Metabolic Ujd081 K 3.7 mEq/L 09/12/2015 Comp Metabolic Qam374 CL 102 mEq/L 09/12/2015 Comp Metabolic Obz930 CO2 30.0 mEq/L 09/12/2015 Comp Metabolic Abp562 ANION GAP 11 09/12/2015 Comp Metabolic Wok380 GLUCOSE 135 mg/dL 09/12/2015 Comp Metabolic Svl816 Creat 0.8 mg/dL 09/12/2015 Comp Metabolic Kix666 eGFR 86 ml/min/1.73m2 09/12/2015 Comp Metabolic Fke282 BUN 10 mg/dL 09/12/2015 Comp Metabolic Rrn804 B/C Ratio 13.3 Ratio 09/12/2015 Comp Metabolic Jra431 CALCIUM 8.8 mg/dL 09/12/2015 Comp Metabolic Hwn000 ALK PHOS 95 U/L 09/12/2015 Comp Metabolic Kos810 AST(SGOT) 18 U/L 09/12/2015 Comp Metabolic Uqw469 ALT(SGPT) 20 U/L 09/12/2015 Comp Metabolic Yon039 BILI T 0.5 mg/dL 09/12/2015 Comp Metabolic Hrz822 ALBUMIN 3.9 g/dL 09/12/2015 Comp Metabolic Wiv658 TPRO 6.5 g/dL 09/12/2015 Comp Metabolic Jyv727 GLOB 2.6 g/dL 09/12/2015 Comp Metabolic Rvx072 A/G Ratio 1.5 Ratio 09/12/2015 Comp Metabolic Qiz754 Osmo 279 mOsmo 09/12/2015 Tsh Ord6 hTSH II 0.81 uIU/mL 08/01/2015 Free T4 Djb187 FREE T4 0.82 ng/dL 08/01/2015 Vitamin B12 492229 VITAMIN B12 TEST NOT PERFORMED pg/mL 2015 Vitamin D 25 Oh Ukx4151 VITAMIN D, 25 HYDROXY 50.78 ng/mL Comp Metabolic Ujh188 NA 142 mEq/L 04/12/2015 Comp Metabolic Gvn471 K 3.5 mEq/L 04/12/2015 Comp Metabolic Wbu733 CL 102 mEq/L 04/12/2015 Comp Metabolic Zry024 CO2 32.0 mEq/L 04/12/2015 Comp Metabolic Qyh940 ANION GAP 12 04/12/2015 Comp Metabolic Bng352 GLUCOSE 130 mg/dL 04/12/2015 Comp Metabolic Odp098 Creat 0.8 mg/dL 04/12/2015 Comp Metabolic Gzt215 eGFR 78 ml/min/1.73m2 04/12/2015 Comp Metabolic Zqg055 BUN 12 mg/dL 04/12/2015 Comp Metabolic Nbl092 B/C Ratio 14.6 Ratio 04/12/2015 Comp Metabolic Mnv183 CALCIUM 8.9 mg/dL 04/12/2015 Comp Metabolic Ybq956 ALK PHOS 95 U/L 04/12/2015 Comp Metabolic Dor050 AST(SGOT) 21 U/L 04/12/2015 Comp Metabolic Xlg089 ALT(SGPT) 23 U/L 04/12/2015 Comp Metabolic Rud625 BILI T 0.4 mg/dL 04/12/2015 Comp Metabolic Zxr686 ALBUMIN 3.9 g/dL 04/12/2015 Comp Metabolic Dju550 TPRO 6.3 g/dL 04/12/2015 Comp Metabolic Lyy093 GLOB 2.4 g/dL 04/12/2015 Comp Metabolic Dzz708 A/G Ratio 1.6 Ratio 04/12/2015 Comp Metabolic Xic773 Osmo 285 mOsmo 04/12/2015 Tsh Ord6 hTSH II 0.18 uIU/mL 04/12/2015 %Hba1C Vdi052 % HbA1c 58384-6 6.4 % 04/12/2015 %Hba1C Oub202 Gluc Ave 137 mg/dL 04/12/2015 Free T4 Vez602 FREE T4 1.13 ng/dL 04/12/2015 Cbc With [...] Ord2 RDW 14.6 % 11/14/2014 Comp Metabolic Ndn190 NA 137 mEq/L 11/14/2014 Comp Metabolic Fyv814 K 3.6 mEq/L 11/14/2014 Comp Metabolic Zai077 CL 98 mEq/L 11/14/2014 Comp Metabolic Jfm564 CO2 31.0 mEq/L 11/14/2014 Comp Metabolic Ahf170 ANION GAP 12 11/14/2014 Comp Metabolic Npb158 GLUCOSE 110 mg/dL 11/14/2014 Comp Metabolic Qfg705 Creat 0.8 mg/dL 11/14/2014 Comp Metabolic Bkx701 eGFR 81 ml/min/1.73m2 11/14/2014 Comp Metabolic Wem845 BUN 14 mg/dL 11/14/2014 Comp Metabolic Vvo905 B/C Ratio 17.7 Ratio 11/14/2014 Comp Metabolic Ssa783 CALCIUM 9.2 mg/dL 11/14/2014 Comp Metabolic Huq914 ALK PHOS 135 U/L 11/14/2014 Comp Metabolic Dxx375 AST(SGOT) 17 U/L 11/14/2014 Comp Metabolic Wzr214 ALT(SGPT) 20 U/L 11/14/2014 Comp Metabolic Yok636 BILI T 0.3 mg/dL 11/14/2014 Comp Metabolic Pow103 ALBUMIN 3.7 g/dL 11/14/2014 Comp Metabolic Eiz558 TPRO 6.5 g/dL 11/14/2014 Comp Metabolic Dqn935 GLOB 2.8 g/dL 11/14/2014 Comp Metabolic Jmi681 A/G Ratio 1.3 Ratio 11/14/2014 Comp Metabolic Dll490 Osmo 275 mOsmo 11/14/2014 CHEM 14 5809685 AST 18 U/L 04/11/2014 CHEM 14 5280383 ALT 25 IU/L 04/11/2014 CHEM 14 9774796 BUN 13 MG/DL 04/11/2014 CHEM 14 2946835 ALBUMIN 4.1 GM/DL 04/11/2014 CHEM 14 0435304 CHLORIDE 103 MMOL/L 04/11/2014 CHEM 14 1286899 BILI TOT 0.3 MG/DL 04/11/2014 CHEM 14 0521048 ALK PHOS 107 U/L 04/11/2014 CHEM 14 5595604 SODIUM 139 MMOL/L 04/11/2014 CHEM 14 9109918 CREATININE 0.85 MG/DL 04/11/2014 CHEM 14 9396690 CALCIUM 9.2 MG/DL 04/11/2014 CHEM 14 6765706 POTASSIUM 3.7 MMOL/L 04/11/2014 CHEM 14 5581655 PROT TOT 7.1 GM/DL 04/11/2014 CHEM 14 3965369 GLUCOSE 85 MG/DL 04/11/2014 CHEM 14 6072602 BICARB 28 MMOL/L 04/11/2014 CHEM 14 3768209 ANION GAP 8 MEQ/L 04/11/2014 GFR CALC 1509349 GFR AA >60 ML/MIN 04/11/2014 GFR CALC 1650625 GFR NON-AA >60 ML/MIN 04/11/2014 URINALYSIS NONAUTO W/O SCOPE 73541 Specific [place] 1.020 DateTime(Free Text in Aprima) URINALYSIS NONAUTO W/O SCOPE 39463 PH 5.0 DateTime(Free Text in Aprima) URINALYSIS NONAUTO W/O SCOPE 43284 Protein neg DateTime( Free Text in Aprima) URINALYSIS NONAUTO W/O SCOPE 38702 Blood neg DateTime(Free Text in Aprima) URINALYSIS NONAUTO W/O SCOPE 52230 Bilirubin neg DateTime(Free Text in Aprima) URINALYSIS NONAUTO W/O SCOPE 35387 Ketones small DateTime(Free Text in Aprima) URINALYSIS NONAUTO W/O SCOPE 11680 Urobilinogen neg DateTime(Free Text in Aprima) URINALYSIS NONAUTO W/O SCOPE 34171 Nitrite neg DateTime( Free Text in Aprima) URINALYSIS NONAUTO W/O SCOPE 28806 Leukocytes neg DateTime(Free Text in Apr) Review of Systems System Result Effective Dates [...] normal 01/07/2018 None Full Exam - General 1995 [...] 1995 Eyes conjunctiva /eyelids Overall: eyelids normal 02/21/2013 None Full Exam - General 1995 [...] 1995 Eyes conjunctiva /eyelids Overall: eyelids normal 12/13/2012 [...] CPT-4: J3301 02/22/2018 IMMUNIZATION ADMIN CPT -4: 67293 01/07/2018 FLU VAC NO PRSV 4 SHAKILA 3 YRS+ CPT-4: 65002 01/07/2018 TRIAMCINOLONE ACET INJ NOS CPT-4: J3301 01/22/2016 TRIAMCINOLONE ACET INJ NOS CPT-4: J3301 11/23/2014 THER/PROPH/DIAG INJ SC/IM CPT-4: 74849 11/23/2014 THER/PROPH/DIAG INJ SC/IM CPT-4: 24222 11/22/2014 TRIAMCINOLONE ACET INJ NOS CPT-4: J3301 11/22/2014 URINALYSIS NONAUTO W/O SCOPE CPT-4: 26517 11/14/2014 ROUTINE VENIPUNCTURE CPT-4: 24327 04/11/2014 CHEM 14 (COMPREHEN METABOLIC PANEL) CPT-4: 32865 04/11/2014 IMMUNIZATION ADMIN CPT -4: 92625 01/05/2014 FLU VAC NO PRSV 4 SHAKILA 3 YRS+ Assigned to/Alyssa Thomas CPT-4: 86959Tliedbi 01/05/2014 FOOT EXAM PERFORMED SNOMED CT: 67382523 CPT-4: 2028F 06/20/2013 THER/PROPH/DIAG INJ SC/IM CPT-4: 56947 06/06/2013 KETOROLAC TROMETHAMINE INJ CPT-4: J1885 06/06/2013 Vital Signs Date Vital 02/22/2018 Blood Pressure 1: 130/68 Code : 8480-6 BMI: 31.5 Code : 68103-2 Heart Rate 1 : 91 bpm Height: 5'6" SpO2: 98% Weight: 192 lbs 01/07/2018 Blood Pressure 1: 138/82 Code : 8480-6 BMI: 31.3 Code : 15619-1 Heart Rate 1 : 95 bpm Height: 5'6" SpO2: 98% Weight: 191 lbs 10/01/2017 Blood Pressure 1: 138/88 Code : 8480-6 BMI: 30.3 Code : 19196-7 Heart Rate 1 : 80 bpm Height: 5'6" SpO2: 98% Weight: 185 lbs 06/08/2017 Blood Pressure 1: 148/92 Code : 8480-6 BMI: 31.5 Code : 91613-7 Heart Rate 1 : 88 bpm Height: 5'6" SpO2: 98% Weight: 192 lbs 11/12/2016 Blood Pressure 1: 140/80 Code : 8480-6 BMI: 29.7 Code : 88494-3 Heart Rate 1 : 82 bpm Height: 5'6" SpO2: 96% Weight: 181 lbs 08/11/2016 Blood Pressure 1: 152/88 Code : 8480-6 BMI: 30.3 Code : 93967-1 Heart Rate 1 : 73 bpm Height: 5'6" SpO2: 98% Weight: 185 lbs 03/31/2016 Blood Pressure 1: 124/86 Code : 8480-6 BMI: 30.2 Code : 94200-8 Heart Rate 1 : 86 bpm Height: 5'6" SpO2: 95% Weight: 184 lbs 02/01/2016 Blood Pressure 1: 112/60 Code : 8480-6 BMI: 29.5 Code : 10821-3 Heart Rate 1 : 68 bpm Height: 5'6" SpO2: 98% Weight: 180 lbs 01/22/2016 Blood Pressure 1: 132/80 Code : 8480-6 BMI: 29.8 Code : 10157-6 Heart Rate 1 : 76 bpm Height: 5'6" SpO2: 98% Temperature: 35.7 (C) / 96.2 (F) Weight: 182 lbs 01/07/2016 Blood Pressure 1: 134/86 Code : 8480-6 BMI: 30.0 Code : 48920-3 Heart Rate 1 : 78 bpm Height: 5'6" SpO2: 98% Weight: 183 lbs 12/03/2015 Blood Pressure 1: 146/86 Code : 8480-6 BMI: 30.2 Code : 39098-2 Heart Rate 1 : 93 bpm Height: 5'6" SpO2: 98% Weight: 184 lbs 8 oz 09/17/2015 Blood Pressure 1: 140/88 Code : 8480-6 BMI: 29.5 Code : 96056-8 Heart Rate 1 : 77 bpm Height: 5'6" SpO2: 98% Weight: 180 lbs 05/29/2015 Blood Pressure 1: 140/80 Code : 8480-6 BMI: 28.2 Code : 76487-6 Heart Rate 1 : 83 bpm Height: 5'6" SpO2: 98% Weight: 172 lbs 12/12/2014 Blood Pressure 1: 150/92 Code : 8480-6 BMI: 28.2 Code : 00326-9 Heart Rate 1 : 91 bpm Height: 5'6" SpO2: 96% Weight: 172 lbs 11/23/2014 Blood Pressure 1: 138/92 Code : 8480-6 11/22/2014 Blood Pressure 1: 126/80 Code : 8480-6 BMI: 28.7 Code : 66056-8 Heart Rate 1 : 86 bpm Height: 5'6" SpO2: 97% Weight: 175 lbs 11/14/2014 Blood Pressure 1: 130/82 Code : 8480-6 BMI: 28.7 Code : 61522-7 Heart Rate 1 : 72 bpm Height: 5'6" Temperature: 36.3 (C) / 97.4 (F) Weight: 175 lbs 09/04/2014 Blood Pressure 1: 128/82 Code : 8480-6 BMI: 30.3 Code : 82234-3 Heart Rate 1 : 80 bpm Height: 5'6" Weight: 185 lbs 08/04/2014 Blood Pressure 1: 140/82 Code : 8480-6 BMI: 31.3 Code : 15587-7 Heart Rate 1 : 92 bpm Height: 5'6" SpO2: 99% Weight: 191 lbs 04/11/2014 Blood Pressure 1: 142/80 Code : 8480-6 BMI: 34.7 Code : 24876-6 Heart Rate 1 : 74 bpm Height: 5'6" Weight: 212 lbs 01/05/2014 Blood Pressure 1: 144/84 Code : 8480-6 BMI: 36.7 Code : 47250-6 Heart Rate 1 : 89 bpm Height: 5'6" SpO2: 97% Weight: 224 lbs 10/10/2013 Blood Pressure 1: 112/70 Code : 8480-6 BMI: 36.1 Code : 61892-2 Heart Rate 1 : 104 bpm Height: 5'6" Weight: 220 lbs 08/02/2013 Blood Pressure 1: 178/98 Code : 8480-6 BMI: 36.4 Code : 11146-9 Heart Rate 1 : 100 bpm Height: 5'6" Weight: 222 lbs 06/30/2013 Blood Pressure 1: 142/82 Code : 8480-6 BMI: 35.9 Code : 56767-6 Heart Rate 1 : 86 bpm Height: 5'6" SpO2: 98% Temperature: 36.3 (C) / 97.3 (F) Weight: 219 lbs 06/20/2013 Blood Pressure 1: 126/78 Code : 8480-6 BMI: 36.2 Code : 33872-1 Heart Rate 1 : 76 bpm Height: 5'6" Weight: 221 lbs 06/06/2013 Blood Pressure 1: 158/98 Code : 8480-6 BMI: 36.2 Code : 24644-5 Heart Rate 1 : 92 bpm Height: 5'6" Weight: 221 lbs 02/21/2013 Blood Pressure 1: 128/82 Code : 8480-6 BMI: 35.2 Code : 83658-5 Heart Rate 1 : 80 bpm Height: 5'6" Temperature: 35.7 (C) / 96.3 (F) Weight: 215 lbs 12/13/2012 Blood Pressure 1: 132/86 Code : 8480-6 BMI: 35.7 Code : 40357-3 Heart Rate 1 : 80 bpm Height: 5'6" Weight: 218 lbs 09/23/2012 Blood Pressure 1: 132/90 Code : 8480-6 BMI: 36.2 Code : 04782-5 Heart Rate 1 : 84 bpm Height: 5'6" Weight: 221 lbs 06/14/2012 Blood Pressure 1: 134/84 Code : 8480-6 Heart Rate 1: 84 bpm Respiratory Rate : 20 bpm Weight: 221 lbs 05/21/2012 Blood Pressure 1: 136/80 Code : 8480-6 BMI: 35.9 Code : 13995-1 Heart Rate 1 : 20 bpm Height: [...] surgery was canceled. She was referred to [facility] at acute renal failure Onset of Symptom [...] diabetes mellitus Exercise minimal exercise 01/05/2014 starting [facility] diabetes mellitus Pertinent Findings Denies dyspnea [...] in the larynx 02/21/2013 patient went to [facility] th[facility]. was given a zpack, prednisone, and [...] single episode, moderate[ICD10: F32.1] Tiffanie Curran MD, [facility] CPT-4: 06300 02/22/2018 [id number] EST. PATIENT, LEVEL IV Diagnosis: Type 2 diabetes mellitus with hyperglycemia[ICD10: E11.65] Diagnosis: Other specified hypothyroidism[ICD10: E03.8] Diagnosis: VACCIN FOR INFLUENZA[ICD10: Z23] Tiffanie Curran MD, [facility] CPT- 4: 14730 01/07/2018 [id number] EST. PATIENT, LEVEL IV Diagnosis: Type 2 diabetes mellitus with hyperglycemia[ICD10: E11.65] Diagnosis: Other specified hypothyroidism[ICD10: E03.8] Diagnosis: Other allergic rhinitis[ICD10: J30.89] Tiffanie Curran MD, [facility] CPT-4: 34641 10/01/2017 [id number] EST. PATIENT, LEVEL IV Diagnosis: Type 2 diabetes mellitus with hyperglycemia[ICD10: E11.65] Diagnosis: Hypothyroidism, unspecified[ICD10: E03.9] Diagnosis: Generalized anxiety disorder[ICD10: F41.1] Diagnosis: Major depressive disorder, single episode, moderate[ICD10: F32.1] Tiffanie Curran MD, [facility] CPT-4: 02209 06/08/2017 ([id number]) PREV VISIT EST AGE 40-64 Diagnosis: Encounter for general adult medical examination without abnormal findings[ICD10: Z00.00] Eleonora Curran MD, [facility] CPT-4: 48568 11/12/2016 ([id number]) 87675 EST. PATIENT, LEVEL III Diagnosis: Allergic rhinitis due to pollen[ICD10: J30.1] Diagnosis: Acute upper respiratory infection, unspecified[ICD10: J06.9] Talya Curran MD, [facility] CPT-4: 66247 09/16/2016 ([id number]) 38805 EST. PATIENT, LEVEL IV Diagnosis: Essential (primary) hypertension[ICD10: I10] Diagnosis: Type 2 diabetes mellitus without complications[ICD10: E11.9] Diagnosis: Functional diarrhea[ICD10: K59.1] Diagnosis: Mixed hyperlipidemia[ICD10: E78.2] Eleonora Curran MD, [facility] CPT-4: 03569 08/11/2016 ([id number]) 78453 EST. PATIENT, LEVEL III Diagnosis: Cramp and spasm[ICD10: R25.2] Diagnosis: Nausea[ICD10: R11.0] Talya Curran MD, [facility] CPT-4: 19477 03/31/2016 ([id number]) 31386 EST. PATIENT, LEVEL IV Diagnosis: Cough[ICD10: R05] Diagnosis: Essential (primary) hypertension[ICD10: I10] Diagnosis: Hypothyroidism, unspecified[ICD10: E03.9] Diagnosis: Gastro-esophageal reflux disease without esophagitis[ICD10: K21.9] Talya Curran MD, [facility] CPT-4: 78485 02/01/2016 ([id number]) 51516 EST. PATIENT, LEVEL III Diagnosis: Cough[ICD10: R05] Diagnosis: Acute bronchitis, unspecified[ICD10: J20.9] Talya Curran MD, [facility] CPT-4: 30738 01/22/2016 ([id number]) 65802 EST. PATIENT, LEVEL IV Diagnosis: Type 2 diabetes mellitus without complications[ICD10: E11.9] Diagnosis: Essential (primary) hypertension[ICD10: I10] Diagnosis: Dysphagia, pharyngeal phase[ICD10: R13.13] Eleonora Curran MD, [facility] CPT-4: 49422 01/07/2016 ([id number]) 45001 EST. PATIENT, LEVEL IV Diagnosis: Type 2 diabetes mellitus without complications[ICD10: E11.9] Diagnosis: Essential (primary) hypertension[ICD10: I10] Diagnosis: Pain in right knee[ICD10: M25.561] Eleonora Curran MD, [facility] CPT-4: 07598 12/03/2015 ([id number]) 18147 EST. PATIENT, LEVEL IV Diagnosis: Type 2 diabetes mellitus with hyperglycemia[ICD10: E11.65] Diagnosis: Essential (primary) hypertension[ICD10: I10] Eleonora Curran MD [facility] CPT-4: 34739 09/17/2015 ([id number]) 79140 EST. 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 PATIENT, LEVEL III Diagnosis: Diabetes mellitus, type II[ICD9: 250.00] Diagnosis: ESSENTIAL HYPERTENSION[ICD9: 401.9] Diagnosis: ESOPHAGEAL REFLUX[ICD9: 530.81] Eleonora Curran MD [facility] CPT- 4: 38561 12/12/2014 ([id number]) 04703 EST. PATIENT, LEVEL III Diagnosis: ALLERGIC URTICARIA[ICD9: 708.0] Kristan Curran MD [facility] CPT-4 : 03365 11/22/2014 ([id number]) 50296 EST. PATIENT, LEVEL III Diagnosis: Abdominal pain[ICD9: 789.00] Diagnosis: Status post gastric surgery[ICD9: V45.89] Kristan Curran MD [facility] CPT-4: 36487 11/14/2014 ([id number]) 05437 EST. PATIENT, LEVEL III Diagnosis: Diabetes mellitus, type II[ICD9: 250.00] Diagnosis: ESSENTIAL HYPERTENSION[ICD9: 401.9] Diagnosis: OBESITY[ICD9: 278.00] Diagnosis: ESOPHAGEAL REFLUX[ICD9: 530.81] Eleonora Curran MD, [facility] CPT- 4: 72896 09/04/2014 ([id number]) 77155 EST. PATIENT, LEVEL IV Diagnosis: Diabetes mellitus, type II[ICD9: 250.00] Diagnosis: ESSENTIAL HYPERTENSION[ICD9: 401.9] Diagnosis: OBESITY[ICD9: 278.00] Eleonora Curran MD, [facility] CPT-4: 53249 08/04/2014 ([id number]) 09191 EST. PATIENT, LEVEL IV Diagnosis: Thyroid nodule[ICD9: 241.0] Diagnosis: Decreased renal function[ICD9: 593.9] Diagnosis: Diabetes mellitus, type II[ICD9: 250.00] Talya Curran MD [facility] CPT-4: 55612 04/11/2014 ([id number]) 56827 EST. PATIENT, LEVEL IV Diagnosis: Chronic diarrhea[ICD9: 787.91] Diagnosis: DM W/O COMPLICATION TYPE II, UNCONTROLLED[ICD9: 250.02] Diagnosis: ESSENTIAL HYPERTENSION[ICD9: 401.9] Talya Curran MD, [facility] CPT-4: 76077 01/05/2014 51673 EST. PATIENT, LEVEL IV Diagnosis: DM W/O COMPLICATION TYPE II, UNCONTROLLED[ICD9: 250.02] Diagnosis: OBESITY[ICD9: 278.00] Diagnosis: Generalized anxiety disorder[ICD9: 300.02] Diagnosis: ESSENTIAL HYPERTENSION[ICD9: 401.9] Eleonora Curran MD [facility] CPT-4: 17969 10/10/2013 ([id number]) 38662 EST. PATIENT, LEVEL IV Diagnosis: DM W/O COMPLICATION TYPE II, UNCONTROLLED[ICD9: 250.02] Diagnosis: Shoulder pain, right[ICD9: 719.41] Diagnosis: INSOMNIA NOS[ICD9: 780.52] Eleonora Curran MD [facility] CPT- 4: 40969 08/02/2013 ([id number]) 33218 EST. PATIENT, LEVEL IV Diagnosis: DM W/O COMPLICATION TYPE II, UNCONTROLLED[SNOMED: 57376387] Diagnosis: COUGH[ICD9: 786.2] Diagnosis: MYALGIA AND MYOSITIS[ICD9: 729.1] Eleonora Curran MD, [facility] CPT-4: 36169 06/30/2013 ([id number]) 75559 EST. PATIENT, LEVEL III Diagnosis: DM W/O COMPLICATION TYPE II, UNCONTROLLED[SNOMED: 05562963] Eleonora Curran MD , [facility] CPT-4: 90219 06/20/2013 ([id number]) 49079 EST. PATIENT, LEVEL IV Diagnosis: DM W/O COMPLICATION TYPE II, UNCONTROLLED[SNOMED: 50477339] Eleonora Curran MD [facility] CPT-4: 60012 06/06/2013 ([id number] 15255 EST. PATIENT, LEVEL IV Diagnosis: Acute bronchitis[ICD9: 466.0] Diagnosis: Cough[ICD9: 786.2] Diagnosis: Myalgia[ICD9: 729.1] Eleonora Curran MD, [facility] CPT-4: 72427 02/21/2013 04627 EST. PATIENT, LEVEL IV Diagnosis: DM W/O COMPLICATION TYPE II, UNCONTROLLED[SNOMED: 99707911] Diagnosis: OBESITY[ICD9: 278.00] Diagnosis: Dietary counseling and surveillance[ICD9: V65.3] Eleonora Curran MD, [facility] CPT-4: 13237 12/13/2012 ([id number] 50303 EST. PATIENT, LEVEL IV Diagnosis: DM W/O COMPLICATION TYPE II, UNCONTROLLED[SNOMED: 82005597] Diagnosis: HYPERLIPIDEMIA[ICD9: 272.4] Eleonora Curran MD [facility] CPT- 4: 57198 09/23/2012 (49123 01380 EST. PATIENT, LEVEL IV Diagnosis: Diabetes mellitus type 2, uncontrolled[SNOMED: 82912098] Diagnosis: Hyperlipidemia[ICD9: 272.4] Diagnosis: ESSENTIAL HYPERTENSION[SNOMED: 15246208] Talya Curran MD, [facility] CPT-4: 89679 06/14/2012 OFFICE VISIT, NEW - LEVEL 3 Diagnosis: Influenza[ICD9: 487.1] Diagnosis: COUGH[ICD9: 786.2] Diagnosis: FEVER NOS[ICD9: 780.60] Diagnosis: Diarrhea[ICD9: 787.91] Diagnosis: Diabetes mellitus, type II[SNOMED: 760232500] Talya Curran MD, [facility] CPT-4: 13439 05/21/2012 Plan of Care Planned Activity Notes [...] monitor lesions. 02/22/2018 Appointment: Tiffanie Cr WPtel: [facility] (15 min) Moderate 02/22/2018 Patient Education: Patient [...] of control. 01/07/2018 Appointment: Tiffanie Cr WPtel: [phone] [facility] (15 min) Moderate 01/07/2018 Patient Education: Patient Medication Summary Completed 01/07/2018 Patient Education: Diabetes Completed 01/07/2018 Appointment: Tiffanie Cr WPtel: [phone] [facility] [place] (15 min) Moderate 12/31/2017 Patient [...] allergy spray. 10/01/2017 Appointment: Tiffanie Cr WPtel: [facility] (15 min) Moderate 10/01/2017 Patient Education: Patient Medication Summary Completed 10/01/2017 Appointment: Tiffanie Cr WPtel: [facility] (15 min) Moderate 09/07/2017 Visit Plan: Diabetes [...] patient. 06/08/2017 Appointment: Tiffanie Cr WPtel: [phone] [facility] (30 min) Complex 06/08/2017 Patient Education: Patient [...] functioning. 11/12/2016 Appointment: Eleonora Curran WPtel: [phone] [facility] (15 min) Moderate 11/12/2016 Patient Education: Patient Medication Summary Completed 11/12/2016 Patient Education: Patient Medication Summary Completed 11/12/2016 Appointment: Eleonora Curran WPtel: [phone] [facility] (15 min) Moderate 11/06/2016 Visit Plan: Allergies [...] pharmacy. 09/16/2016 Appointment: Talya Hernandez WPtel: [phone] [phone] [place] (10 min) Simple 09/16/2016 Patient Education: Patient Medication Summary Completed 09/16/2016 Care Plan: SCREENINGMAMMOGRAPHYDIGITAL [facility] : [id number] Pending 08/16/2016 Visit Plan: Diabetes Mellitus - [...] concerns. 08/11/2016 [phone] ([facility]) Moderate 08/11/2016 Patient Education: Patient Medication Summary Completed 08/11/2016 Patient Education: Obesity Completed 08/11/2016 App[facility]ment: [phone] ([facility] min) Moderate 07/14/2016 Patient Education: Patient Medication Summary Completed 07/04/2016 Care Plan: Cbc With Differential Pending 07/04/2016 Care Plan: Comp Metabolic Pending 07/04/2016 Care Plan: Tsh Pending 07/04/2016 Care Plan: Lipid Pending 07/04/2016 Care Plan: [facility] 26971-8 Pending 07/04/2016 Care Plan: Free T4 Pending 07/04/2016 Appointment: Eleonora Curran WPtel: [phone] [facility] (15 min) Moderate 06/16/2016 Appointment: Eleonora Curran WPtel: [phone] [phone] (15 min) Moderate 05/06/2016 Visit Plan: Gastroenteritis - discussed need to stay away from milk products while acutely ill with diarrhea and nausea and emesis as it may worsen the symptoms. Liquids initially until the nausea improves, then recommend to advance to bland diet for 1 day, then advance as tolerated. Call if symptoms not improved. 03/31/2016 Appointment: Talya Hernandez WPtel: [phone] [phone] (10 min) Simple 03/31/2016 Patient [...] not improving. 02/01/2016 Appointment: Talya Hernandez WPtel: [phone] (30 min) Complex 02/01/2016 Patient Education: Patient Medication Summary Completed 02/01/2016 Visit Plan: Bronchitis - acute case of bronchitis identified. Pt has been given antibiotics, breathing treatments as appropriate, and pt has been instructed to call if symptoms are not improved, or if symptoms acutely worsen. 01/22/2016 Appointment: Talya Hernandez WPtel: [phone] [phone] (15 min) Moderate 01/22/2016 Patient Education: [...] to monitor 01/07/2016 Appointment: Eleonora Curran WPtel: [address] [place], [place] [address] (15 min) Moderate 01/07/2016 Patient Education: Patient [...] victoza stopped 09/17/2015 Appointment: [phone] ([facility] min) Moderate 09/17/2015 Patient Education: [...] Hypertension Completed 05/29/2015 Appointment: [facility]el[phone] (15 min) Moderate 05/22/2015 Appointment: (15 [...] control. 12/12/2014 Appointment: [facility]el[phone] (15 min) Moderate 12/12/2014 Patient Education: Patient Medication Summary Completed 12/12/2014 Patient Education: Hypertension Completed 12/12/2014 Appointment: [facility] Hernandez [facility]el: [phone] Follow up 11/28/2014 Patient Education: Patient Medication [...] starting to become less controlled.michaela sample - [id number] exp 02/2016 novonordisk Hypertension - well controlled - continue with current medications, continue with no added salt diet. Pt has been encouraged to exercise daily. The pt has been advised to call the office if there are any acute concerns about change in blood pressure readings at home. 09/04/2014 Appointment: [facility] Curran [facility]el[phone] [facility] Follow up 09/04/2014 Patient Education: Patient Medication Summary Completed 09/04/2014 Patient Education: Hypertension Completed 09/04/2014 Care Plan: Referral Order SNOMED-CT : [id number] Ordered 09/04/2014 Visit Plan: Hypertension - well [...] metformin 08/04/2014 Appointment: [facility]el[phone] Follow up 08/04/2014 Patient Education: Patient Medication Summary Completed 08/04/2014 Patient Education: Hypertension Completed 08/04/2014 Visit Plan: Thyroid nodules-nodule on left lobe has increased in size-biopsy scheduled for Decrease renal function- secondary to dehydration-repeat labs-maintain adequate oral intake-follow up with [employer] as scheduled DM-hgb a1c improved-continue with same [...] Summary Completed 01/05/2014 Appointment: Eleonora Curran WPtel: [facility] Follow up 01/03/2014 Visit Plan: Diabetes [...] to relax. 10/10/2013 Appointment: Eleonora Curran WPtel: [address] [place], [place] [phone] [place] Follow up 10/10/2013 Patient Education: Patient Medication Summary Completed 10/10/2013 Patient Education: Hypertension Completed 10/10/2013 Appointment: Eleonora Curran WPtel: [address] [place], [place] [phone] [place] Follow up 09/13/2013 Appointment: Eleonora Curran WPtel: [facility] Follow up 08/03/2013 Visit Plan: Diabetes Mellitus [...] treatment options. 08/02/2013 Appointment: Eleonora Curran WPtel: [facility] [place] Follow up 08/02/2013 Patient Education: Patient Medication [...] urgent care. 06/30/2013 Appointment: Eleonora Curran WPtel: [facility] Sick 06/30/2013 Patient Education: Patient Medication Summary [...] patient today. 06/20/2013 Appointment: Eleonora Curran WPtel: [address] [place], [place] [phone] Diabetic education 06/20/2013 Patient Education: Patient Medication Summary Completed 06/20/2013 Appointment: Eleonora Curran WPtel: [address] [place], [place] [phone] Follow up 06/13/2013 Visit Plan: Shoulder pain [...] acute bronchitis. 02/21/2013 Appointment: Eleonora Curran WPtel: [phone] [facility] [facility] 02/21/2013 Patient Education: Patient Medication Summary Completed [...] months. 12/13/2012 Appointment: Eleonora Curran WPtel: [phone] [facility] Follow up 12/13/2012 Patient Education: Patient Medication [...] to medications. 09/23/2012 Appointment: Eleonora Curran WPtel: [address] [place], [place] [address] Follow up 09/23/2012 Patient Education: Patient Medication [...] at home. 06/14/2012 Appointment: Talya Hernandez WPtel: [facility] [place] [address] Follow up 06/14/2012 Patient Education: Patient Medication Summary Completed 06/14/2012 Patient Education: Hypertension Completed 06/14/2012 Visit Plan: Pcyyg-ocfaf-wauv aches-suspect influenza- patient no indication for tamiflu [...] less controlled. 05/21/2012 Appointment: Talya Hernandez WPtel: [phone] New Patient 05/21/2012 Patient Education: Patient Medication Summary Completed 05/21/2012 Referral: Hernandez Dennis WPtel: Referral Appointment Requested Instructions Comment pt to start on victoza 1.2 mg [...] to assure normal liver response to medications. Plan: ([id number]) FLU VAC NO PRSV 4 SHAKILA 3 [...] daily stop metformin I SENT ZITHROMAX TO [facility]-2 PILLS TODAY AND THEN 1 PILL DAILY UNTIL GONE. I ALSO SENT A PRESCRIPTION FOR DIFLUCAN FOR A YEAST INFECTION. Recommend PROBIOTIC twice daily-lactobacillus. START TODAY. meets [facility] [employer]lle Align IF THE DIARRHEA PERSISTS OR WORSENS, START FLAGYL 500MG THREE TIMES DAILY-I SENT IT TO [facility]. I will call phenergan with codeine cough syrup to [facility]. Okay to take 5- 10ml every 6 hours as needed for cough. . Hcttu-rlcju-csha aches-suspect influenza-patient no indication for tamiflu due [...] starting to become less controlled.victoza sample - [id number] exp 02/2016 novonordisk Hypertension - well controlled [...] pt also given RX for prednisone taper. HOLD VIMOVO X 2 WEEKS DEXILANT 1 [...] office if the symptoms are not improving. . Well Adult - pt was counseled [...] until the results of the CT tomorrow. Stop victoza - start Xultophy (it is [...] spray in the nasal steroid allergy spray. Pt has been advised to increase her [...] months based on previous levels of control. CHECK CHEM PANEL METFORMIN TO 500MG DAILY INCREASE PO FLUIDS . Thyroid nodules-nodule on left lobe has increased in size-biopsy scheduled for Decrease renal function-secondary to dehydration-repeat labs-maintain adequate oral intake-follow up with [employer] se[employer] as scheduled DM-hgb a1c improved-continue with same [...] lesion, dressed with neosporin and monitor lesions. KENALOG INJECTION TODAY IN THE OFFICE START [...] not improved, or if symptoms acutely worsen. . Hypertension - well controlled - continue [...] - supportive care - continue to monitor NAPROXEN 500MG TWICE DAILY WITH FOOD FOR [...] THEN INCREASE TO 10 UNITS NIGHTLY . Allergies - chronic - recommended pt [...]
--- OUTSIDE RECORDS SUMMARY | 2018-03-31 09:49 | XMS REPORT | Continuity of Care Document ---
Author Author [facility] Address Unknown Phone Unavailable Allergies Active Description Code Type Severity Reaction Onset Reported/Identified Relationship to Patient Clinical Status Yes No Known Drug Allergies [id number] Drug Allergy Unknown N/A 05/12/2014 Yes pneumococcal vaccine [id number] Drug Allergy Unknown N/A 03/12/2018 Medications There is no data. Problems Date Dx Coded Attending Type Code Diagnosis Diagnosed By 03/26/1626 KHALIDA ARIAS DO Ot M75.02 ADHESIVE CAPSULITIS OF LEFT SHOULDER 03/21/2014 OLESYA PHD, GABRIEL Gomez V71.09 OBSERVATION OF OTHER SUSPECTED MENTAL CONDITION 04/17/2014 JAMES PACHECO EMERGENCY COMMUNICATIONS OFFICER Ot 241.1 04/17/2014 JAMES PACHECO EMERGENCY COMMUNICATIONS OFFICER Ot 241.1 04/17/2014 ASHLEY MARTINEZ MD Ot 241.0 04/24/2014 JAMES PACHECO EMERGENCY COMMUNICATIONS OFFICER Ot 241.1 04/24/2014 JAMES PACHECO EMERGENCY COMMUNICATIONS OFFICER Ot 241.1 05/05/2014 JAMES PACHECO EMERGENCY COMMUNICATIONS OFFICER Ot 241.1 05/18/2014 MASSIMO SHARPE, CAROL Philippe Ot 241.0 NONTOX UNINODULAR GOITER 05/18/2014 MASSIMO SHARPE, CAROL Philippe Ot V58.69 OT MED,LT,CURRENT USE 05/26/2014 MASSIMO SHARPE, CAROL Philippe Ot 241.0 05/26/2014 MASSIMO SHARPE, CAROL Philippe Ot V72.63 05/26/2014 MASSIMO SHARPE, CAROL Philippe Ot V74.8 06/07/2014 MASSIMO SHARPE, CAROL Philpipe Ot 275.41 06/07/2014 MASSIMO SHARPE, CAROL Philippe Ot V45.79 11/29/2014 MARIO SALAZAR APRN Ot 562.11 11/29/2014 MARIO SALAZAR APRN Ot V45.86 02/01/2016 ASHLEY MARTINEZ MD Ot 719.41 JOINT PAIN-SHLDER 02/01/2016 JUAN SHARPE, ASHLEY Rg Ot 726.10 BURSAE TENDONS DIS SHLDER NOS 02/01/2016 JUAN SHARPE, ASHLEY Rg Ot E000.8 OTHER EXTERNAL CAUSE STATUS 02/01/2016 JUAN SHARPE, ASHLEY Rg Ot E849.0 ACCIDENT IN HOME 02/01/2016 JUAN SHARPE, ASHLEY Rg Ot E888.9 FALL NOS 02/01/2016 JAMES PACHECO EMERGENCY COMMUNICATIONS OFFICER Ot 794.5 ABN THYROID FUNCT STUDY 02/01/2016 ASHLEY MARTINEZ MD Ot 241.0 NONTOX UNINODULAR GOITER 02/01/2016 JAMES PACHECOP Ot 241.1 NONTOX MULTINODUL GOITER 02/01/2016 MASSIMO SHARPE, CAROL Philippe Ot 241.0 NONTOX UNINODULAR GOITER 02/01/2016 MASSIMO SHARPE, CAROL Philippe Ot V72.63 PRE-PROCEDURAL LABORATORY EXAMINATION 02/01/2016 MASSIMO SHARPE, CAROL Philippe Ot V74.8 SCREEN-BACTERIAL DIS NEC 02/01/2016 MASSIMO SHARPE, CAROL Philippe Ot 275.41 HYPOCALCEMIA 02/01/2016 MASSIMO SHARPE, CAROL Philippe Ot V45.79 ACQRD ABSENCE OF OTH ORGAN 02/01/2016 MARIO SALAZAR MASSAGE THERAPY INSTRUCTOR Ot 562.11 DIVERTICULITIS COLON (W/O MENT OF HEMORR 02/01/2016 MARIO SALAZAR MASSAGE THERAPY INSTRUCTOR Ot V45.86 BARIATRIC SURGERY STATUS 02/06/2016 JAMES PACHECO EMERGENCY COMMUNICATIONS OFFICER Ot R05 COUGH 02/06/2016 JUAN SHARPE, ASHLEY Rg Ot 719.41 JOINT PAIN-SHLDER 02/06/2016 JUAN SHARPE, ASHLEY Rg Ot 726.10 BURSAE TENDONS DIS SHLDER NOS 02/06/2016 JUAN SHARPE, ASHLEY Rg Ot E000.8 OTHER EXTERNAL CAUSE STATUS 02/06/2016 ASHLEY MARTINEZ MD Ot E849.0 ACCIDENT IN HOME 02/06/2016 ASHLEY MARTINEZ MD Ot E888.9 FALL NOS 02/06/2016 JAMES PACHECO EMERGENCY COMMUNICATIONS OFFICER Ot 794.5 ABN THYROID FUNCT STUDY 02/06/2016 ASHLEY MARTINEZ MD Ot 241.0 NONTOX UNINODULAR GOITER 02/06/2016 PACHECO, JAMES M EMERGENCY COMMUNICATIONS OFFICER Ot 241.1 NONTOX MULTINODUL GOITER 02/06/2016 MASSIMO SHARPE, CAROL Philippe Ot 241.0 NONTOX UNINODULAR GOITER 02/06/2016 MASSIMO SHARPE, CAROL Philippe Ot V72.63 PRE-PROCEDURAL LABORATORY EXAMINATION 02/06/2016 MASSIMO SHARPE, CAROL Philippe Ot V74.8 SCREEN-BACTERIAL DIS NEC 02/06/2016 MASSIMO SHARPE, CAROL Philippe Ot 275.41 HYPOCALCEMIA 02/06/2016 MASSIMO SHARPE, CAROL Philippe Ot V45.79 ACQRD ABSENCE OF OTH ORGAN 02/06/2016 MARIO SALAZAR MASSAGE THERAPY INSTRUCTOR Ot 562.11 DIVERTICULITIS COLON (W/O MENT OF HEMORR 02/06/2016 MARIO SALAZAR MASSAGE THERAPY INSTRUCTOR Ot V45.86 BARIATRIC SURGERY STATUS 02/06/2016 JAMES PACHECO EMERGENCY COMMUNICATIONS OFFICER Ot R05 COUGH 02/14/2016 JAMES PACHECO EMERGENCY COMMUNICATIONS OFFICER Ot R05 COUGH 06/17/2016 HUGO DO, KHALIDA Magdaleno Ot M75.02 ADHESIVE CAPSULITIS OF LEFT SHOULDER 06/25/2017 JUAN SHARPE, ASHLEY Rg Ot 719.41 JOINT PAIN-SHLDER 06/25/2017 JUAN SHARPE, ASHLEY Rg Ot 726.10 BURSAE TENDONS DIS SHLDER NOS 06/25/2017 JUAN SHARPE, ASHLEY Rg Ot E000.8 OTHER EXTERNAL CAUSE STATUS 06/25/2017 JUAN SHARPE, ASHLEY Rg Ot E849.0 ACCIDENT IN HOME 06/25/2017 JUAN SHARPE, ASHLEY Rg Ot E888.9 FALL NOS 06/25/2017 JAMES PACHECO EMERGENCY COMMUNICATIONS OFFICER Ot 794.5 ABN THYROID FUNCT STUDY 06/25/2017 JUAN SHARPE, ASHLEY Rg Ot 241.0 NONTOX UNINODULAR GOITER 06/25/2017 JAMES PACHECOP Ot 241.1 NONTOX MULTINODUL GOITER 06/25/2017 MASSIMO SHARPE, CAROL Philippe Ot 241.0 NONTOX UNINODULAR GOITER 06/25/2017 MASSIMO SHARPE, CAROL Philippe Ot V72.63 PRE-PROCEDURAL LABORATORY EXAMINATION 06/25/2017 MASSIMO SHARPE, CAROL Philippe Ot V74.8 SCREEN-BACTERIAL DIS NEC 06/25/2017 MASSIMO SHARPE, CAROL Philippe Ot 275.41 HYPOCALCEMIA 06/25/2017 CAROL KEYS MD Ot V45.79 ACQRD ABSENCE OF OTH ORGAN 06/25/2017 MARIO SALAZAR MASSAGE THERAPY INSTRUCTOR Ot 562.11 DIVERTICULITIS COLON (W/O MENT OF HEMORR 06/25/2017 MARIO SALAZAR MASSAGE THERAPY INSTRUCTOR Ot V45.86 BARIATRIC SURGERY STATUS 06/25/2017 TARA JAMES Jose Martin EMERGENCY COMMUNICATIONS OFFICER Ot R05 COUGH 07/23/2017 TREMAYNE MARQUEZ MASSAGE THERAPY INSTRUCTOR Ot L90.5 SCAR CONDITIONS AND FIBROSIS OF SKIN 07/23/2017 TREMAYNE MARQUEZ MASSAGE THERAPY INSTRUCTOR Ot Z47.89 ENCOUNTER FOR OTHER ORTHOPEDIC AFTERCARE 03/12/2018 ASHLEY MARTINEZ MD Ot E03.9 HYPOTHYROIDISM, UNSPECIFIED 03/12/2018 ASHLEY MARTINEZ MD Ot E11.65 TYPE 2 DIABETES MELLITUS WITH HYPERGLYCE 03/12/2018 ASHLEY MARTINEZ MD Ot E78.5 HYPERLIPIDEMIA, UNSPECIFIED 03/12/2018 ASHLEY MARTINEZ MD Ot F32.9 MAJOR DEPRESSIVE DISORDER, SINGLE EPISOD 03/12/2018 ASHLEY MARTINEZ MD Ot F41.9 ANXIETY DISORDER, UNSPECIFIED 03/12/2018 ASHLEY MARTINEZ MD Ot G81.94 HEMIPLEGIA, UNSPECIFIED AFFECTING LEFT N 03/12/2018 ASHLEY MARTINEZ MD Ot I16.1 HYPERTENSIVE EMERGENCY 03/12/2018 ASHLEY MARTINEZ MD Ot I48.0 PAROXYSMAL ATRIAL FIBRILLATION 03/12/2018 ASHLEY MARTINEZ MD, Ot I63.9 CEREBRAL INFARCTION, UNSPECIFIED 03/12/2018 ASHLEY MARTINEZ MD, Ot K21.9 GASTRO-ESOPHAGEAL REFLUX DISEASE WITHOUT 03/12/2018 ASHLEY MARTINEZ MD Ot R00.2 PALPITATIONS 03/12/2018 ASHLEY MARTINEZ MD Ot Z79.4 SNF (CURRENT) USE OF INSULIN 03/12/2018 ASHLEY MARTINEZ MD Ot Z85.820 PERSONAL HISTORY OF MALIGNANT MELANOMA O 03/12/2018 ASHLEY MARTINEZ MD Ot Z91.19 PATIENT'S NONCOMPLIANCE W OT MEDICAL TR 03/12/2018 ASHLEY MARTINEZ MD Ot Z98.84 BARIATRIC SURGERY STATUS 03/18/2018 JUANCARLOS LENNON MD Ot E03.9 HYPOTHYROIDISM, UNSPECIFIED 03/18/2018 JUANCARLOS LENNON MD Ot E11.9 TYPE 2 DIABETES MELLITUS WITHOUT COMPLIC 03/18/2018 JUANCARLOS LENNON MD Ot E78.5 HYPERLIPIDEMIA, UNSPECIFIED 03/18/2018 JUANCARLOS LENNON MD Ot F32.9 MAJOR DEPRESSIVE DISORDER, SINGLE EPISOD 03/18/2018 JUANCARLOS LENNON MD Ot I10 ESSENTIAL (PRIMARY) HYPERTENSION 03/18/2018 JUANCARLOS LENNON MD Ot I69.354 HEMIPLGA FOLLOWING CEREBRAL INFRC AFFECT 03/18/2018 JUANCARLOS LENNON MD Ot J30.9 ALLERGIC RHINITIS, UNSPECIFIED 03/18/2018 JUANCARLOS LENNON MD Ot Z79.4 DOCK OPERATOR (CURRENT) USE OF INSULIN 03/24/2018 ASHLEY MARTINEZ MD Ot G47.10 HYPERSOMNIA, UNSPECIFIED 03/24/2018 ASHLEY MARTINEZ MD, Ot G47.36 SLEEP RELATED HYPOVENTILATION IN CONDITI 03/24/2018 ASHLEY MARTINEZ MD, Ot I10 ESSENTIAL (PRIMARY) HYPERTENSION 03/24/2018 ASHLEY MARTINEZ MD Ot R06.83 SNORING 03/24/2018 ASHLEY MARTINEZ MD, Ot Z86.73 PRSNL HX OF TIA (TIA), AND CEREB INFRC W Procedures Code [place] [address] PSYCH DIAGNOSTIC EVALUATION 03/21/2014 [id number] INSERT OF MONITOR DEV INTO CHEST SUBCU/F 03/11/2018 Results Test Result Range Complete blood count [...] <=0.05 miu/l (units/ volume) 6.07 u[iU]/mL 0.35-4.94 Hemoglobin A1c - 03/09/18 06:40 Blood hemoglobin A1C measurement (mass/volume) 11.0 % 4.0 -5.6 MEAN BLOOD GLUCOSE 269 % <=126 Complete urinalysis with reflex to culture - [...] urinalysis with reflex to culture NO NRG Capillary blood glucose measurement by glucometer (mass/volume) - 03/09/18 14: 13 Capillary blood glucose measurement by glucometer (mass/volume) 172 mg/dL 70-110 Capillary blood glucose measurement by glucometer (mass/volume) - 03/09/18 20: 22 Capillary blood glucose measurement by glucometer (mass/volume) 225 mg/dL 70-110 Complete blood count (CBC) with automated white blood cell (WBC) differential - 03/10/18 04:30 Blood leukocytes automated count (number/volume) 8.7 10*3/uL 4.3-11.0 Blood erythrocytes automated count (number/volume) 4.85 10*6/uL 4.35-5.85 Venous blood hemoglobin measurement (mass/volume) 13.8 g/dL 11.5-16.0 Blood hematocrit (volume fraction) 42 % 35-52 Automated erythrocyte mean corpuscular volume 86 [foz_us] 80-99 Automated erythrocyte mean corpuscular hemoglobin (mass per erythrocyte) 29 pg 25-34 Automated erythrocyte mean corpuscular hemoglobin concentration measurement ( mass/volume) 33 g/dL 32-36 Automated erythrocyte distribution width ratio 13.5 % 10.0-14.5 Automated blood platelet count (count/volume) 306 10*3/uL 130-400 Automated blood platelet mean volume measurement 10.9 [foz_us] 7.4-10.4 Automated blood neutrophils/100 leukocytes 76 % 42-75 Automated blood lymphocytes/100 leukocytes 18 % 12-44 Blood monocytes/100 leukocytes 5 % 0-12 Automated blood eosinophils/100 leukocytes 1 % 0-10 Automated blood basophils/100 leukocytes 0 % 0-10 Blood neutrophils automated count (number/volume) 6.6 10*3 1.8-7.8 Blood lymphocytes automated count (number/volume) 1.6 10*3 1.0-4.0 Blood monocytes automated count (number/volume) 0.5 10*3 0.0-1.0 Automated eosinophil count 0.1 10*3/uL 0.0-0.3 Automated blood basophil count (count/volume) 0.0 10*3/uL 0.0-0.1 Comprehensive metabolic panel - 03/10/18 04:30 Serum or plasma sodium measurement (moles/volume) 143 mmol/L 135-145 Serum or plasma potassium measurement (moles/volume) 3.2 mmol/L 3.6-5.0 Serum or plasma chloride measurement (moles/volume) 106 mmol/L 98-107 Carbon dioxide 26 mmol/L 21-32 Serum or plasma anion gap determination (moles/volume) 11 mmol/L 5-14 Serum or plasma urea nitrogen measurement (mass/volume) 9 mg/dL 7-18 Serum or plasma creatinine measurement (mass/volume) 0.77 mg/dL 0.60-1.30 Serum or plasma urea nitrogen/creatinine mass ratio 12 NRG Serum or plasma creatinine measurement with calculation of estimated glomerular filtration rate > NRG Serum or plasma glucose measurement (mass/volume) 185 mg/dL 70-105 Serum or plasma calcium measurement (mass/volume) 8.9 mg/dL 8.5-10.1 Serum or plasma total bilirubin measurement (mass/volume) 0.6 mg/dL 0.1-1.0 Serum or plasma alkaline phosphatase measurement (enzymatic activity/volume) 125 U/L 40-136 Serum or plasma aspartate aminotransferase measurement (enzymatic activity/ volume) 13 U/L 5-34 Serum or plasma alanine aminotransferase measurement (enzymatic activity/volume ) 14 U/L 0-55 Serum or plasma protein measurement (mass/volume) 6.2 g/dL 6.4-8.2 Serum or plasma albumin measurement (mass/volume) 3.5 g/dL 3.2-4.5 CALCIUM CORRECTED 9.3 mg/dL 8.5-10.1 Lipid 1996 panel - 03/10/18 04:30 Serum or plasma triglyceride measurement (mass/volume) 131 mg/dL <150 Serum or plasma cholesterol measurement (mass/volume) 187 mg/dL < 200 Serum or plasma cholesterol in HDL measurement (mass/volume) 42 mg/ dL 40-60 Cholesterol in LDL [mass/volume] in serum or plasma by direct assay 129 mg/dL 1-129 Serum or plasma cholesterol in VLDL measurement (mass/volume) 26 mg/ dL 5-40 Capillary blood glucose measurement by glucometer (mass/volume) - 03/10/18 05: 59 Capillary blood glucose measurement by glucometer (mass/volume) 181 mg/dL 70-110 Capillary blood glucose measurement by glucometer (mass/volume) - 03/10/18 09: 43 Capillary blood glucose measurement by glucometer (mass/volume) 279 mg/dL 70-110 Capillary blood glucose measurement by glucometer (mass/volume) - 03/10/18 15: 24 Capillary blood glucose measurement by glucometer (mass/volume) 172 mg/dL 70-110 Capillary blood glucose measurement by glucometer (mass/volume) - 03/10/18 19: 33 Capillary blood glucose measurement by glucometer (mass/volume) 308 mg/dL 70-110 Capillary blood glucose measurement by glucometer (mass/volume) - 03/10/18 20: 24 Capillary blood glucose measurement by glucometer (mass/volume) 290 mg/dL 70-110 Capillary blood glucose measurement by glucometer (mass/volume) - 03/11/18 05: 09 Capillary blood glucose measurement by glucometer (mass/volume) 181 mg/dL 70-110 Capillary blood glucose measurement by glucometer (mass/volume) - 03/11/18 09: 45 Capillary blood glucose measurement by glucometer (mass/volume) 219 mg/dL 70-110 Capillary blood glucose measurement by glucometer (mass/volume) - 03/11/18 15: 00 Capillary blood glucose measurement by glucometer (mass/volume) 339 mg/dL 70-110 Capillary blood glucose measurement by glucometer (mass/volume) - 03/11/18 20: 15 Capillary blood glucose measurement by glucometer (mass/volume) 240 mg/dL 70-110 Capillary blood glucose measurement by glucometer (mass/volume) - 03/12/18 05: 36 Capillary blood glucose measurement by glucometer (mass/volume) 187 mg/dL 70-110 Capillary blood glucose measurement by glucometer (mass/volume) - 03/12/18 09: 37 Capillary blood glucose measurement by glucometer (mass/volume) 311 mg/dL 70-110 Capillary blood glucose measurement by glucometer (mass/volume) - 03/12/18 11: 23 Capillary blood glucose measurement by glucometer (mass/volume) 139 mg/dL 70-110 Capillary blood glucose measurement by glucometer (mass/volume) - 03/12/18 16: 09 Capillary blood glucose measurement by glucometer (mass/volume) 309 mg/dL 70-110 Capillary blood glucose measurement by glucometer (mass/volume) - 03/12/18 20: 31 Capillary blood glucose measurement by glucometer (mass/volume) 176 mg/dL 70-110 Capillary blood glucose measurement by glucometer (mass/volume) - 03/13/18 04: 46 Capillary blood glucose measurement by glucometer (mass/volume) 103 mg/dL 70-110 Capillary blood glucose measurement by glucometer (mass/volume) - 03/13/18 09: 58 Capillary blood glucose measurement by glucometer (mass/volume) 234 mg/dL 70-110 Capillary blood glucose measurement by glucometer (mass/volume) - 03/13/18 14: 46 Capillary blood glucose measurement by glucometer (mass/volume) 169 mg/dL 70-110 Capillary blood glucose measurement by glucometer (mass/volume) - 03/13/18 19: 46 Capillary blood glucose measurement by glucometer (mass/volume) 213 mg/dL 70-110 Capillary blood glucose measurement by glucometer (mass/volume) - 03/14/18 05: 17 Capillary blood glucose measurement by glucometer (mass/volume) 106 mg/dL 70-110 Capillary blood glucose measurement by glucometer (mass/volume) - 03/14/18 10: 18 Capillary blood glucose measurement by glucometer (mass/volume) 229 mg/dL 70-110 Capillary blood glucose measurement by glucometer (mass/volume) - 03/14/18 16: 20 Capillary blood glucose measurement by glucometer (mass/volume) 187 mg/dL 70-110 Capillary blood glucose measurement by glucometer (mass/volume) - 03/14/18 20: 16 Capillary blood glucose measurement by glucometer (mass/volume) 213 mg/dL 70-110 Capillary blood glucose measurement by glucometer (mass/volume) - 03/15/18 05: 34 Capillary blood glucose measurement by glucometer (mass/volume) 106 mg/dL 70-110 Capillary blood glucose measurement by glucometer (mass/volume) - 03/15/18 10: 58 Capillary blood glucose measurement by glucometer (mass/volume) 174 mg/dL 70-110 Capillary blood glucose measurement by glucometer (mass/volume) - 03/15/18 15: 55 Capillary blood glucose measurement by glucometer (mass/volume) 282 mg/dL 70-110 Capillary blood glucose measurement by glucometer (mass/volume) - 03/15/18 20: 20 Capillary blood glucose measurement by glucometer (mass/volume) 115 mg/dL 70-110 Capillary blood glucose measurement by glucometer (mass/volume) - 03/16/18 05: 14 Capillary blood glucose measurement by glucometer (mass/volume) 135 mg/dL 70-110 Capillary blood glucose measurement by glucometer (mass/volume) - 03/16/18 11: 29 Capillary blood glucose measurement by glucometer (mass/volume) 109 mg/dL 70-110 Capillary blood glucose measurement by glucometer (mass/volume) - 03/16/18 16: 04 Capillary blood glucose measurement by glucometer (mass/volume) 192 mg/dL 70-110 Capillary blood glucose measurement by glucometer (mass/volume) - 03/16/18 20: 33 Capillary blood glucose measurement by glucometer (mass/volume) 235 mg/dL 70-110 Capillary blood glucose measurement by glucometer (mass/volume) - 03/17/18 05: 52 Capillary blood glucose measurement by glucometer (mass/volume) 124 mg/dL 70-110 Capillary blood glucose measurement by glucometer (mass/volume) - 03/17/18 11: 01 Capillary blood glucose measurement by glucometer (mass/volume) 233 mg/dL 70-110 Capillary blood glucose measurement by glucometer (mass/volume) - 03/17/18 16: 08 Capillary blood glucose measurement by glucometer (mass/volume) 138 mg/dL 70-110 Capillary blood glucose measurement by glucometer (mass/volume) - 03/17/18 20: 37 Capillary blood glucose measurement by glucometer (mass/volume) 189 mg/dL 70-110 Capillary blood glucose measurement by glucometer (mass/volume) - 03/18/18 05: 26 Capillary blood glucose measurement by glucometer (mass/volume) 93 mg/dL 70-110 Encounters ACCT No. Visit Date/Time Discharge Status Pt. Type Provider Facility Loc./Unit Complaint [id number] 03/21/2014 08:02:00 03/21/2014 23:59:59 CLS Outpatient OLESYA VANCE, GABRIEL Gomez [id number] 03/25/2018 13:20:00 03/25/2018 23:59:59 CLS Preadmit ASHLEY MARTINEZ MD [facility] REHAB CVA [id number] 03/23/2018 10:55:00 03/23/2018 11:15:00 DIS Outpatient ASHLEY MARTINEZ MD [facility] SLEEP HYPERSOMNIA,STROKE [id number] 03/12/2018 09:38:00 03/18/2018 10:30:00 DIS Inpatient JUANCARLOS LENNON MD [facility] IRF CVA [id number] 03/09/2018 09:25:00 03/12/2018 09:30:00 DIS Inpatient ASHLEY MARTINEZ MD [facility] 4TH HTN;L SIDE WEAKNESS; HYPOTHYROIDISM;UNCONTROLLED DM [id number] 07/30/2017 16:14:00 08/07/2017 13:40:00 DIS Outpatient TREMAYNE MARQUEZ MASSAGE THERAPY INSTRUCTOR [facility] REHAB S/P PARTIAL PALMAR FASCIOTOMY L HAND [id number] 06/17/2016 15:58:00 06/17/2016 16:27:00 DIS Outpatient KHALIDA ARIAS DO [facility] REHAB L SHOULDER MILD ADHESIVE CAPSULITIS;CALCIFIC TENDI [id number] 02/01/2016 11:45:00 02/01/2016 23:59:59 CLS Outpatient JAMES PACHECO [facility] RAD COUGH [id number] 11/15/2014 09:04:00 11/15/2014 23:59:59 CLS Outpatient MARIO SALAZAR MASSAGE THERAPY INSTRUCTOR [facility] RAD LLQ PAIN DIARRHEA DIVERTICULITIS [id number] 05/24/2014 16:05:00 05/24/2014 23:59:59 CLS Outpatient CAROL KEYS MD [facility] LAB HYPOCALCAEMCA [id number] 05/17/2014 06:00:00 05/18/2014 11:40:00 DIS [facility] [id number] 05/12/2014 08:04:00 05/12/2014 23:59:59 CLS Outpatient CAROL KEYS MD [facility] PREOP THYROID NODULE [id number] 04/13/2014 13:10:00 04/13/2014 23:59:59 CLS Outpatient JAMES PACHECO [facility] RAD MULTIPLE THYROID NODULES [id number] 03/31/2014 15:54:00 03/31/2014 23:59:59 CLS Outpatient ASHLEY MARTINEZ MD [facility] RAD THYROID NODULES [id number] 09/23/2013 13:20:00 09/23/2013 23:59:59 CLS Outpatient JAMES PACHECO [facility] RAD ABNORMAL THYROID LABS [id number] 06/09/2013 12:55:00 06/09/2013 23:59:59 CLS Outpatient ASHLEY MARTINEZ MD [facility] RAD FALL, RT SHOULDER PAIN [id number] 05/30/2013 07:55:00 05/30/2013 23:59:59 CLS Outpatient 0000 02/23/2017 06:07:22 02/23/2017 23:59:59 CLS Outpatient [id number] 11/15/2014 09:06:50 ACT Document Registration [id number] 02/04/2017 16:40:00 02/04/2017 23:59:59 CLS Outpatient [facility] [place]
--- NOTE | 2018-03-31 10:02 | Cardiac Procedure Note-CS/ASA ---
Pre-Procedure Note Pre-Op Procedure Note H&P Reviewed The H&P was reviewed, patient examined and no changes noted. Date H&P Reviewed: Mar 31, 2018 Time H&P Reviewed: 10:01 Conscious Sedation Pre-Proced Time 10:01 ASA Score 3 For ASA 3 and 4: Consider anesthesia and medical clearance. Also, for patients with a history of failed moderate sedation consider anesthesia. Airway Lungs Heart ASA score ASA 1: a normal healthy patient ASA 2: a patient with a mild systemic disease (mid diabetes, controlled hypertension, obesity x ASA 3: a patient with a severe systemic disease that limits activity (angina , COPD, prior Myocardial infarction) ASA 4: a patient with an incapacitating disease that is a constant threat to life (CHF, renal failure) ASA 5: a moribund patient not expected to survive 24 hrs. (ruptured aneurysm) ASA 6: a declared brain patient whose organs are being harvested. For emergent operations, add the letter E after the classification Mallampati Classification Grade 3 Sedation Plan Analgesia, Amnesia, Plan communicated to team members, Discussed options with patient/fam, Discussed risks with patient/fam The patient is an appropriate candidate to undergo the planned procedure, sedation, and anesthesia. The patient immediately re-assessed prior to indication. ANEUDY BLACKBURN MD Mar 31, 2018 10:02
--- NOTE | 2018-03-31 10:18 | Diagnostic Imaging Report ---
Indication: Status post transesophageal echo. Time of exam: 10:09 AM Correlation is made with prior study 03/09/2018. Cardiac monitoring device overlies the left chest. Lungs are clear. No effusion or pneumothorax is seen. The pulmonary vascularity is unremarkable. Impression: No acute abnormality is detected. Dr. Paz was called with these results. Dictated by: Dictated on workstation # [id number]
== END | disposition home or self-care (01) ==
LOC: CATH 08:18
PROVIDERS: ATTEND Internal Medicine Cardiovascular Disease
DX: I69.351 Hemiplegia and hemiparesis following cerebral infarction affecting right dominant side (principal); I34.0 Nonrheumatic mitral (valve) insufficiency; I65.23 Occlusion and stenosis of bilateral carotid arteries; I48.0 Paroxysmal atrial fibrillation; I10 Essential (primary) hypertension; E11.9 Type 2 diabetes mellitus without complications; G47.30 Sleep apnea, unspecified; E78.5 Hyperlipidemia, unspecified; Z79.02 Long term (current) use of antithrombotics/antiplatelets; Z79.82 Long term (current) use of aspirin; Z79.899 Other long term (current) drug therapy
CPT/HCPCS: 71045; 93312; 93320; 93325

== ENCOUNTER 2018-07-06 23:23 | Emergency (ER) | payer BC ==
[~2018-07-06] VITALS: Ht 167.6 cm; Wt 81.6 kg
[~2018-07-06 23:23] MED LIST changes: -LIDOCAINE 2% VISCOUS 15 ML UDC ONE; -LIDOCAINE 2% VISCOUS 15 ML UDC PO ONE; -MIDAZOLAM 5 MG/5 ML (VERSED) VIAL ONE; -NS IV 1000 ML 1,000 ML IV ONE; -NS IV 1000 ML 1,000 ML ONE; -fentaNYL INJECTION 100 MCG/2 ML AMP ONE
--- OUTSIDE RECORDS SUMMARY | 2018-07-06 23:28 | XMS REPORT | Clinical Summary ---
Author Author [facility] Organization [facility] Address Unknown Phone Unavailable Care Team Providers Care Beauty Shop Manager Name Role Phone Torrey Mccabe MD Unavailable Eleonora Curran MD PCP Source Comments Some departments are not documenting in the electronic medical record. If you do not see the information that you expected, contact Release of Information in the Health Information Management department at [phone] for further assistance in locating additional records.[facility] Allergies Comments Active Allergy Reactions Severity Noted Date Pneumococcal Vaccine UNKNOWN 05/05/2014 Medications End Date Status Medication Sig Dispensed Refills Start Date Active omeprazole DR(+) Take 40 mg by 0 (PRILOSEC) 40 mg capsule mouth daily. Active ALPRAZolam (XANAX) 0.25 Take 0.25 mg 0 mg tablet by mouth at bedtime as needed. Active citalopram (CELEXA) 40 mg Take 40 mg by 0 tablet mouth daily. Active insulin glargine (LANTUS) Inject 30 0 100 unit/mL injection Units into area(s) as directed at bedtime daily. Active Diltiazem HCl (MATZIM LA) Take by 0 360 mg Tb24 mouth. Active metFORMIN (GLUCOPHAGE) Take 500 mg 0 500 mg tablet by mouth daily. Active metoprolol XL (TOPROL XL) Take 100 mg 0 100 mg tablet by mouth daily. Active valsartan (DIOVAN) 320 mg Take 320 mg 0 tablet by mouth daily. Active aspirin 81 mg chewable Take 81 mg by 0 tablet mouth daily. Active estradiol(+) (MINIVELLE) Apply 1 Patch 0 0.075 mg/24 hr patch to top of skin as directed twice weekly. Active hydrochlorothiazide Take 25 mg by 0 (HYDRODIURIL) 25 mg mouth daily. tablet Active liraglutide(+) (VICTOZA) Inject 1.8 mg 0 0.6 mg/0.1 mL (18 mg/3 into area(s) mL) pnij as directed daily. Active Problems Not on file Family History Medical History Relation Name Comments Cancer Father Diabetes Father Hypertension Father Cancer Maternal Grandfather Diabetes Maternal Grandfather Hypertension Maternal Grandfather Diabetes Mother Hypertension Mother Hypertension Sister Relation Name Status Comments Father Maternal Grandfather Mother Sister Social History Date Tobacco Use Types Packs/Day Years Used Never Smoker Smokeless Tobacco: Never Used Sex Assigned at Date Recorded Not on file Industry Job Start Date Occupation Not on file Not on file Not on file Travel End Travel History Travel Start No recent travel history available. Last Filed Vital Signs Time Taken Vital Sign Reading 05/10/2014 1:13 PM [employer] Blood Pressure 130/86 05/10/2014 1:13 PM [employer] Pulse 96 05/10/2014 1:10 PM [employer] Temperature 36.9 C (98.5 F) 05/10/2014 1:10 PM [employer] Respiratory Rate 18 - Oxygen Saturation - - Inhaled Oxygen - Concentration 05/10/2014 1:10 PM [employer] Weight 95.1 kg (209 lb 9.6 oz) - Height - - Body Mass Index - Plan of Treatment Health Maintenance Due Date Last Done Comments HEPATITIS C SCREENING 1962 PHYSICAL (COMPREHENSIVE) 1969 EXAM HIV SCREENING 1977 DTAP/TDAP VACCINES (1 - 1980 Tdap) CERVICAL CANCER SCREENING 1992 BREAST CANCER SCREENING 2002 COLORECTAL CANCER 2012 SCREENING SHINGLES RECOMBINANT 2012 VACCINE (1 of 2) INFLUENZA VACCINE 11/25/2017 Results Not on filefrom Last 3 Months Insurance Payer Benefit Subscriber ID Type Phone Address Plan / Group [facility] xxxxxxxxxxxx PPO PREF CARE BLUE Advance Directives Patient has advance care planning documents on file. For more information, please contact: [facility] [address] [place] [address]
--- OUTSIDE RECORDS SUMMARY | 2018-07-06 23:28 | XMS REPORT | Clinical Summary ---
Author Author [facility] Organization [facility] Address Unknown Phone Unavailable Care Team Providers Care Community Outreach Coordinator Name Role Phone PCP Unavailable Allergies No [...] Vaccine# (1 of 2) 2012 Influenza Vaccine (Season 02/25/2019 Ended) Results Not on filefrom Last 3 Months
--- OUTSIDE RECORDS SUMMARY | 2018-07-06 23:34 | XMS REPORT | CCD ---
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 ICD-9: 434.01 ICD-10: I63.341 Active 03/29/2018 Unknown Essential (primary) hypertension ICD-9: 401.1 ICD-10: I10 Active 01/06/2016 Unknown Type 2 diabetes mellitus with hyperglycemia ICD-9: 250.02 ICD-10: E11.65 Active 10/10/2013 Unknown Generalized anxiety disorder ICD-9: 300.02 ICD-10: F41.1 Active 06/08/2017 Unknown Other abnormalities of gait and mobility ICD-9: 781.2 ICD-10: R26.89 Active 06/02/2018 Unknown Pseudobulbar affect ICD-9: 310.81 ICD-10: F48.2 Active 06/02/2018 Unknown Other specified symptoms and signs involving the circulatory and respiratory systems ICD-9: 785.9 ICD-10: R09.89 Active 04/28/2018 Unknown Type 2 diabetes mellitus without complications ICD-9: 250.00 ICD-10: E11.9 Active 04/11/2014 Unknown Actinic keratosis ICD- 9: 702.0 ICD-10: [...] ICD-9: 272.2 ICD-10: E78.2 Active 08/11/2016 Unknown Hypothryroidism Unknown Active 11/12/2016 Unknown Encounter [...] hypertension ICD-9: 401.1 ICD-10: I10 01/06/2016 Active Type 2 diabetes mellitus with hyperglycemia ICD-9: 250.02 ICD-10: E11.65 10/10/2013 Active Generalized anxiety disorder ICD-9: 300.02 ICD-10: F41.1 06/08/2017 Active Other abnormalities of gait and mobility ICD-9: 781.2 ICD-10: R26.89 06/02/2018 Active Pseudobulbar affect ICD-9: 310.81 ICD-10: F48.2 06/02/2018 Active Other specified symptoms and signs involving the circulatory and respiratory systems ICD-9: 785.9 ICD-10: R09.89 04/28/2018 Active Type 2 diabetes mellitus without complications ICD-9: 250.00 ICD-10: E11.9 04/11/2014 Active Actinic keratosis ICD- 9: 702.0 ICD-10: [...] hyperlipidemia ICD-9: 272.2 ICD-10: E78.2 08/11/2016 Active Hypothryroidism Unknown 11/12/2016 Active Encounter for [...] Date Status Fill Instructions metoprolol succinate ER 100 mg tablet,extended release 24 hr RxNorm: 496601 1 Tablet(s) PO daily 06/30/2018 03/26/2019 Active hydrochlorothiazide 25 mg tablet RxNorm: 252671 TAKE ONE TABLET BY MOUTH ONCE DAILY 06/28/2018 No Stop Date Active metoprolol succinate ER 50 mg tablet,extended release 24 hr RxNorm: 568956 1.5 Tablet(s) PO daily 06/02/2018 06/29/2018 Inactive losartan 100 mg tablet RxNorm: 763043 1 Tablet(s) PO daily 05/201801/22/2019 Active stop lisionpril and start on losartan Plavix 75 mg tablet RxNorm: 798168 1 Tablet(s) PO daily 201807/26/2018 Active oxybutynin chloride 5 mg tablet RxNorm: 443765 1 Tablet(s) PO daily 04/28/2018 04/22/2019 Active Nuedexta 20 mg-10 mg capsule RxNorm: 7053909 1 Capsule(s) PO daily x 1 week then increase up to BID 04/28/2018 11/23/2018 Active Lipitor 80 mg tablet RxNorm: 004006 1 Tablet(s) PO daily TAKE ONE TABLET BY MOUTH ONCE DAILY IN THE EVENING 04/28/201804/22 Active metoprolol succinate ER 50 mg tablet,extended release 24 hr RxNorm: 954068 TAKE 1 TABLET BY MOUTH ONCE DAILY 03/29/2018 Inactive Prozac 40 mg capsule RxNorm: 689951 1 Capsule(s) PO daily 03/0503/04/2018 Inactive Prozac 40 mg capsule RxNorm: 857021 1 Capsule(s) PO daily 03/0504/03/2018 Inactive amoxicillin 500 mg capsule RxNorm: 459120 1 Capsule(s) PO TID 02/22/2018 02/28/2018 Inactive Kenalog 40 mg/mL suspension for injection RxNorm: 1972406 Milliliter(s) Inj 02/22/2018 02/22/2018 Inactive Prozac 20 mg capsule RxNorm: 145489 1 Capsule(s) PO daily 02/2203/01/2018 Inactive Diflucan 150 mg tablet RxNorm: 172699 1 Tablet(s) PO daily 02/26/2018 Inactive levothyroxine 88 mcg tablet RxNorm: 570688 TAKE 1 TABLET BY MOUTH ONCE DAILY 02/15/2018 No Stop Date Active Cymbalta 60 mg capsule,delayed release RxNorm: 410587 TAKE 1 CAPSULE BY MOUTH ONCE DAILY 02/15/2018 04/27/2018 Inactive Diflucan 150 mg tablet RxNorm: 673482 1 Tablet(s) PO daily No Stop Date Active Xultophy 100/3.6 100 unit-3.6 mg/mL (3 mL) subcutaneous insulin pen RxNorm: 1941319 30 Unit(s) SQ daily 01/07/20182017 Inactive Xultophy 100/3.6 100 unit-3.6 mg/mL (3 mL) subcutaneous insulin pen RxNorm: 9888752 22 Unit(s) SQ daily 12/03/20172017 Inactive Xultophy 100/3.6 100 unit-3.6 mg/mL (3 mL) subcutaneous insulin pen RxNorm: 9085592 20 Unit(s) SQ daily 11/27/20172017 Inactive Xultophy 100/3.6 100 unit-3.6 mg/mL (3 mL) subcutaneous insulin pen RxNorm: 3165139 20 Unit(s) SQ daily 11/27/20172017 Inactive Xultophy 100/3.6 100 unit-3.6 mg/mL (3 mL) subcutaneous insulin pen RxNorm: 6789700 16 Unit(s) SQ daily 10/26/20172017 Inactive Xultophy 100/3.6 100 unit-3.6 mg/mL (3 mL) subcutaneous insulin pen RxNorm: 9744923 16 Unit(s) SQ daily 10/26/20172017 Inactive potassium chloride ER 10 mEq tablet,extended release RxNorm: 741068 1 Tablet(s) PO TIW 10/21/2017 10/15/2018 Active Diflucan 150 mg tablet RxNorm: 798825 TAKE ONE TABLET BY MOUTH ONCE DAILY 10/21/2017 01/06/2018 Inactive Cymbalta 60 mg capsule,delayed release RxNorm: 343953 1 Capsule(s) PO daily 10/07/2017 02/03/2018 Inactive potassium chloride ER 10 mEq tablet,extended release RxNorm: 961154 TAKE ONE TABLET BY MOUTH TWICE A WEEK 10/07/2017 Inactive Lipitor 20 mg tablet RxNorm: 064507 TAKE ONE TABLET BY MOUTH ONCE DAILY IN THE EVENING 09/04/2017 04/27/2018 Inactive metoprolol succinate ER 50 mg tablet,extended release 24 hr RxNorm: 758839 TAKE ONE TABLET BY MOUTH ONCE DAILY 09/04/2017 03/28/2018 Inactive Victoza 3-To 0.6 mg/0.1 mL (18 mg/3 mL) subcutaneous pen injector RxNorm: 811824 Milligram(s) SQ 09/02/2017 03/22/2018 Inactive Diflucan 150 mg tablet RxNorm: 159043 TAKE ONE TABLET BY MOUTH ONCE DAILY 09/02/2017 10/20/2017 Inactive potassium chloride ER 10 mEq tablet,extended release RxNorm: 613540 TAKE ONE TABLET BY MOUTH TWICE A WEEK 08/10/2017 Inactive levothyroxine 88 mcg tablet RxNorm: 173379 TAKE ONE TABLET BY MOUTH ONCE DAILY 08/10/2017 02/14/2018 Inactive Diflucan 150 mg tablet RxNorm: 893484 1 Tablet(s) PO daily 07/20/2017 Inactive Diflucan 150 mg tablet RxNorm: 619446 1 Tablet(s) PO daily 07/09/2017 Inactive Cymbalta 60 mg capsule,delayed release RxNorm: 354266 1 Capsule(s) PO daily 07/10/2017 07/09/2017 Inactive Cymbalta 60 mg capsule,delayed release RxNorm: 484626 1 Capsule(s) PO daily 07/10/2017 10/06/2017 Inactive Diflucan 150 mg tablet RxNorm: 941781 1 Tablet(s) PO daily 07/14/2017 Inactive Wellbutrin XL 150 mg 24 hr tablet, extended release RxNorm: 362251 1 Tablet(s) PO daily 06/08/2017 07/09/2017 Inactive Victoza 3-To 0.6 mg/0.1 mL (18 mg/3 mL) subcutaneous pen injector RxNorm: 631080 Milligram(s) SQ 06/08/2017 09/01/2017 Inactive Initiate at 0.6 mg per day for one week then increase to 1.2 mg. Dispense qty sufficient hydrochlorothiazide 25 mg tablet RxNorm: 017714 TAKE ONE TABLET BY MOUTH ONCE DAILY 05/25/2017 06/27/2018 Inactive citalopram 40 mg tablet RxNorm: 688834 TAKE ONE TABLET BY MOUTH ONCE DAILY 05/13/2017 07/09/2017 Inactive potassium chloride ER 10 mEq tablet,extended release RxNorm: 309721 TAKE ONE TABLET BY MOUTH TWICE A WEEK 03/25/2017 Inactive hydrochlorothiazide 25 mg tablet RxNorm: 087703 TAKE ONE TABLET BY MOUTH ONCE DAILY 02/23/2017 05/24/2017 Inactive levothyroxine 88 mcg tablet RxNorm: 242085 TAKE ONE TABLET BY MOUTH ONCE DAILY 01/28/2017 07/26/2017 Inactive Trulicity 1.5 mg/0.5 mL subcutaneous pen injector RxNorm: 4001999 INJECT ONE SYRINGE SUBCUTANEOUSLY ONCE A WEEK 01/27/2017 07/09/2017 Inactive Diflucan 150 mg tablet RxNorm: 292071 1 Tablet(s) PO daily 12/31/2016 Inactive Invokana 100 mg tablet RxNorm: 2045689 1 Tablet(s) PO daily 11/201602/03/2017 Inactive Invokana 100 mg tablet RxNorm: 9002788 1 Tablet(s) PO daily 11/201612/01/2016 Inactive potassium chloride ER 10 mEq tablet,extended release RxNorm: 072166 1 Tablet(s) PO BIW 11/17/2016 11/16/2016 Inactive metformin 500 mg tablet RxNorm: 260762 1 Tablet(s) PO BID 11/1712/01/2016 Inactive potassium chloride ER 10 mEq tablet,extended release RxNorm: 805789 1 Tablet(s) PO BIW 11/17/2016 11/16/2016 Inactive potassium chloride ER 10 mEq tablet,extended release RxNorm: 518021 1 Tablet(s) PO 2 times weekly 11/17/2016 10/06/2017 Inactive Diflucan 150 mg tablet RxNorm: 095996 1 Tablet(s) PO daily 09/18/2016 Inactive Diflucan 150 mg tablet RxNorm: 148353 1 Tablet(s) PO daily 09/23/2016 Inactive amoxicillin 500 mg tablet RxNorm: 667079 1 Tablet(s) PO BID 09/25/2016 Inactive metoprolol succinate ER 50 mg tablet,extended release 24 hr RxNorm: 877792 Tablet (s) TAKE ONE TABLET BY MOUTH ONCE DAILY 08/11/2016 08/05/2017 Inactive Lipitor 20 mg tablet RxNorm: 200033 1 Tablet(s) PO QPM 201609/03/2017 Inactive Questran Light 4 gram oral powder RxNorm: 9862950 1 PO TID 05/25/2017 Inactive Trulicity 1.5 mg/0.5 mL subcutaneous pen injector RxNorm: 5922736 0.5 Milliliter(s ) SQ QW 08/11/2016 01/07/2017 Inactive levothyroxine 88 mcg tablet RxNorm: 740478 TAKE ONE TABLET BY MOUTH ONCE DAILY 07/28/2016 01/23/2017 Inactive Trulicity 0.75 mg/0.5 mL subcutaneous pen injector RxNorm: 2348134 INJECT THREE- FOURTHS MG(S) SUBCUTANEOUSLY ONCE A WEEK 07/01/2016 08/10/2016 Inactive metoprolol succinate ER 50 mg tablet,extended release 24 hr RxNorm: 899429 TAKE ONE TABLET BY MOUTH ONCE DAILY 06/11/2016 08/09/2016 Inactive citalopram 40 mg tablet RxNorm: 760768 TAKE ONE TABLET BY MOUTH ONCE DAILY 04/14/2016 05/12/2017 Inactive Diflucan 150 mg tablet RxNorm: 895092 1 Tablet(s) PO daily 01/24/2016 Inactive hydrochlorothiazide 25 mg tablet RxNorm: 895727 Tablet(s) 1 TABLET(S) PO DAILY 01/25/2016 01/18/2017 Inactive Diflucan 150 mg tablet RxNorm: 647513 1 Tablet(s) PO daily 01/31/2016 Inactive Zithromax Z-To 250 mg tablet RxNorm: 555773 1 Tablet(s) PO daily 01/24/2016 01/23/2016 Inactive zpack Zithromax Z-To 250 mg tablet RxNorm: 530013 1 Tablet(s) PO daily 01/24/2016 01/28/2016 Inactive zpack prednisone 10 mg tablets in a dose pack RxNorm: 826512 1 Tablet(s) PO as directed 01/24/2016 01/31/2016 Inactive 6-5-4-3-2-1 Kenalog 40 mg/mL suspension for injection RxNorm: 4655680 Milliliter(s) Inj 01/22/2016 01/22/2016 Inactive prednisone 20 mg tablet RxNorm: 211161 2 Tablet(s) PO daily 01/24/2016 Inactive start tomorrow Trulicity 0.75 mg/0.5 mL subcutaneous pen injector RxNorm: 9563857 0.75 Milligram( s) SQ QW 01/18/2016 06/30/2016 Inactive levothyroxine 88 mcg tablet RxNorm: 116189 TAKE ONE TABLET BY MOUTH ONCE DAILY 01/17/2016 07/14/2016 Inactive Trulicity 0.75 mg/0.5 mL subcutaneous pen injector RxNorm: 1963132 0.75 Milligram( s) SQ QW 12/03/2015 01/01/2016 Inactive Vimovo 500 mg-20 mg tablet,immediate and delay release RxNorm: 055029 1 Tablet(s) PO BID 12/03/2015 03/30/2016 Inactive metoprolol succinate ER 50 mg tablet,extended release 24 hr RxNorm: 281557 1 Tablet(s) PO daily 10/23/2015 05/19/2016 Inactive Trulicity 0.75 mg/0.5 mL subcutaneous pen injector RxNorm: 5123134 0.75 Milligram( s) SQ QW 09/17/2015 10/16/2015 Inactive Victoza 3-To 0.6 mg/0.1 mL (18 mg/3 mL) subcutaneous pen injector RxNorm: 345408 1.8 MILLIGRAM(S) SQ DAILY 07/16/201509/15 Inactive this is just a correction of her current dosing - she does not need a refill levothyroxine 88 mcg tablet RxNorm: 721950 1 TABLET(S) PO DAILY 07/16/2015 01/11/2016 Inactive metoprolol succinate ER 50 mg tablet,extended release 24 hr RxNorm: 869648 1 Tablet(s) PO daily 05/29/2015 10/22/2015 Inactive levothyroxine 88 mcg tablet RxNorm: 384616 1 Tablet(s) PO daily 04/17/2015 07/15/2015 Inactive levothyroxine 88 mcg tablet RxNorm: 678672 1 Tablet(s) PO daily 04/17/2015 04/16/2015 Inactive citalopram 40 mg tablet RxNorm: 700467 1 Tablet(s) PO daily 04/13/2016 Inactive metoprolol tartrate 25 mg tablet RxNorm: 960738 1 Tablet(s) BID 01/17/2015 05/28/2015 Inactive hydrochlorothiazide 25 mg tablet RxNorm: 472450 1 TABLET(S) PO DAILY 01/01/2015 12/26/2015 Inactive Kenalog 40 mg/mL suspension for injection RxNorm: 8555149 Milliliter(s) Inj 11/23/2014 11/23/2014 Inactive Kenalog 40 mg/mL suspension for injection RxNorm: 0448914 60 Milliliter(s) Inj 11/22/2014 11/22/2014 Inactive Zyrtec 10 mg tablet RxNorm: 7969736 1 Tablet(s) PO daily 11/2212/21/2014 Inactive prednisone 10 mg tablets in a dose pack RxNorm: 546724 1 Tablet(s) PO as directed 11/22/2014 05/28/2015 Inactive 6-5-4-3-2-1 Flagyl 500 mg tablet RxNorm: 894828 1 Tablet(s) PO TID 201411/20/2014 Inactive metoprolol tartrate 25 mg tablet RxNorm: 121680 1 Tablet(s) PO BID 09/06/2014 08/10/2016 Inactive metoprolol tartrate 25 mg tablet RxNorm: 738983 1 TABLET(S) PO BID PT TO START WITH 1/2 PILL TWICE DAILY X 1 WEEK, THEN INCREASE TO 1 PILL BID THEREAFTER 09/06/2014 01/16/2015 Inactive citalopram 20 mg tablet RxNorm: 408867 1 Tablet(s) PO daily 02/201503/13/2015 Inactive Victoza 3-To 0.6 mg/0.1 mL (18 mg/3 mL) subcutaneous pen injector RxNorm: 289763 1.8 MILLIGRAM(S) SQ DAILY 09/04/201405/31 Inactive this is just a correction of her current dosing - she does not need a refill metoprolol tartrate 25 mg tablet RxNorm: 475950 1 Tablet(s) PO BID pt to start with 1/2 pill twice daily x 1 week, then increase to 1 pill bid thereafter 08/04/2014 09/02/2014 Inactive Lantus Solostar 100 unit/mL (3 mL) subcutaneous insulin pen RxNorm: 899758 Unit( s) INJECT 10 UNITS SUBCUTANEOUSLY DAILY. DOCTOR WILL ADJUST MEDICATION BASED ON BLOOD GLUCOSE LEVELS 08/04/20142014 Inactive hydrochlorothiazide 25 mg tablet RxNorm: 292829 1 TABLET(S) PO DAILY 07/12/2014 01/24/2016 Inactive hydrochlorothiazide 25 mg tablet RxNorm: 630259 1 Tablet(s) PO daily 07/12/2014 12/31/2014 Inactive acyclovir 400 mg tablet RxNorm: 180305 1 Tablet(s) PO QID 05/0905/08/2014 Inactive acyclovir 400 mg tablet RxNorm: 810899 1 Tablet(s) PO QID 05/0905/15/2014 Inactive alprazolam 0.25 mg tablet RxNorm: 476796 TAKE 1 TABLET BY MOUTH TWICE DAILY NEEDED FOR ANXIETY 04/24/2014 05/23/2014 Inactive (Response to an electronic controlled substance refill request [id number]|1|0|1) metoprolol succinate ER 100 mg tablet,extended release 24 hr RxNorm: 850537 1 TABLET(S) PO DAILY TAKE 1 TABLET BY MOUTH DAILY 04/24/2014 08/03/2014 Inactive Cardizem LA 360 mg tablet,extended release RxNorm: 239676 1 TABLET(S) PO DAILY TAKE 1 TABLET BY MOUTH DAILY 04/24/2014 Inactive metformin ER 500 mg 24 hr tablet,extended release RxNorm: 741882 1 Tablet(s) PO daily 04/11/2014 08/03/2014 Inactive Lantus Solostar 100 unit/mL (3 mL) subcutaneous insulin pen RxNorm: 324962 INJECT 40 UNITS SUBCUTANEOUSLY DAILY. DOCTOR WILL ADJUST MEDICATION BASED ON BLOOD GLUCOSE LEVELS 03/20/20142014 Inactive Bentyl 10 mg capsule RxNorm: 804490 1 Capsule(s) PO TID PRN 02/201405/28/2015 Inactive potassium chloride ER 10 mEq tablet,extended release RxNorm: 153038 1 Tablet(s) PO daily 01/05/2014 01/11/2014 Inactive Lantus Solostar 100 unit/mL (3 mL) subcutaneous insulin pen RxNorm: 733343 45 Unit(s) SQ daily doctor to adjust medications based on blood glucose results 01/05/2014 12/02/2015 Inactive Diovan 320 mg tablet RxNorm: 098783 1 Tablet(s) PO daily 201308/03/2014 Inactive metformin ER 1,000 mg tablet,extended release 24hr RxNorm: 527857 1 Tablet(s) PO daily 10/26/2013 04/10/2014 Inactive Lantus Solostar 100 unit/mL (3 mL) subcutaneous insulin pen RxNorm: 091791 40 Unit(s) SQ daily doctor to adjust medications based on blood glucose results 10/10/2013 01/04/2014 Inactive alprazolam 0.25 mg tablet RxNorm: 173058 1 Tablet(s) PO BID 04/24/2014 Inactive Percocet 5 mg-325 mg tablet RxNorm: 4734600 1-2 Tablet(s) PO Q6 PRN 10/03/2013 05/28/2015 Inactive Celexa 40 mg tablet RxNorm: 466617 Tablet(s) PO TAKE 1 TABLET BY MOUTH DAILY 09/28/2013 09/03/2014 Inactive hydrochlorothiazide 25 mg tablet RxNorm: 931944 1 Tablet(s) PO daily 09/22/2013 06/18/2014 Inactive Lantus Solostar 100 unit/mL (3 mL) subcutaneous insulin pen RxNorm: 739120 35 Unit(s) SQ daily doctor to adjust medications based on blood glucose results 08/02/2013 10/09/2013 Inactive Cardizem LA 360 mg tablet,extended release RxNorm: 749447 1 Tablet(s) PO daily TAKE 1 TABLET BY MOUTH DAILY 07/18/2013 Inactive Cardizem LA 360 mg tablet,extended release RxNorm: 340922 Tablet(s) PO TAKE 1 TABLET BY MOUTH DAILY 07/18/20132014 Inactive metoprolol succinate ER 100 mg tablet,extended release 24 hr RxNorm: 625172 1 Tablet(s) PO daily TAKE 1 TABLET BY MOUTH DAILY 07/18/2013 04/13/2014 Inactive metoprolol succinate ER 100 mg tablet,extended release 24 hr RxNorm: 335771 Tablet (s) PO TAKE 1 TABLET BY MOUTH DAILY 07/18/2013 08/03/2014 Inactive Lantus Solostar 100 unit/mL (3 mL) subcutaneous insulin pen RxNorm: 496075 30 Unit(s) SQ daily doctor to adjust medications based on blood glucose results 07/04/2013 08/01/2013 Inactive Victoza 3-To 0.6 mg/0.1 mL (18 mg/3 mL) subcutaneous pen injector RxNorm: 380982 1.8 Milligram(s) SQ daily 06/30/201303/26 Inactive this is just a correction of her current dosing - she does not need a refill metformin ER 1,000 mg tablet,extended release 24hr RxNorm: 404132 1 Tablet(s) PO daily 06/30/2013 10/25/2013 Inactive Lantus Solostar 100 unit/mL (3 mL) subcutaneous insulin pen RxNorm: 146929 20 Unit(s) SQ daily doctor to adjust medications based on blood glucose results 06/30/2013 07/03/2013 Inactive Lantus Solostar 100 unit/mL (3 mL) subcutaneous insulin pen RxNorm: 800361 15 Unit(s) SQ daily doctor to adjust medications based on blood glucose results 06/23/2013 06/29/2013 Inactive Victoza 3-To 0.6 mg/0.1 mL (18 mg/3 mL) subcutaneous pen injector RxNorm: 595128 3mg Milliliter(s) SQ daily 90 days worth 06/20/2013 06/29/2013 Inactive hydrochlorothiazide 25 mg tablet RxNorm: 456283 1 Tablet(s) PO daily 06/13/2013 09/21/2013 Inactive ketorolac 60 mg/2 mL intramuscular solution RxNorm: 552018 2 Milliliter(s) IM 06/06/2013 06/06/2013 Inactive Lantus Solostar 100 unit/mL (3 mL) subcutaneous insulin pen RxNorm: 887094 10 Unit(s) SQ daily doctor to adjust medications based on blood glucose results 06/06/2013 06/22/2013 Inactive naproxen 500 mg tablet RxNorm: 291157 1 Tablet(s) PO BID 201308/04/2013 Inactive hydrochlorothiazide 25 mg tablet RxNorm: 429450 1 Tablet(s) PO daily 06/06/2013 06/12/2013 Inactive Victoza 3-To 0.6 mg/0.1 mL (18 mg/3 mL) subcutaneous pen injector RxNorm: 388563 3mg Milliliter(s) SQ daily 90 days worth 05/19/2013 06/19/2013 Inactive Diflucan 150 mg tablet RxNorm: 357406 1 Tablet(s) PO daily 05/12/2013 Inactive Diflucan 150 mg tablet RxNorm: 278485 1 Tablet(s) PO daily 05/19/2013 Inactive Cardizem LA 360 mg tablet,extended release RxNorm: 126151 Tablet(s) PO TAKE 1 TABLET BY MOUTH DAILY 04/22/20132013 Inactive metoprolol succinate ER 100 mg tablet,extended release 24 hr RxNorm: 830404 Tablet (s) PO TAKE 1 TABLET BY MOUTH DAILY 04/14/2013 07/17/2013 Inactive Diflucan 150 mg tablet RxNorm: 709316 1 Tablet(s) PO daily 03/28/2013 Inactive Diflucan 150 mg tablet RxNorm: 545115 1 Tablet(s) PO daily 03/21/2013 Inactive Diovan 320 mg tablet RxNorm: 033013 1 Tablet(s) PO daily 201212/09/2013 Inactive cefdinir 300 mg capsule RxNorm: 969813 1 Capsule(s) PO BID 02/25/2013 Inactive Phenergan with Codeine Syrup RxNorm: 5-10 Milliliter(s) PO Q6 PRN USE PRN FOR COUGH 02/21/2013 03/20/2013 Inactive 8 OUNCES Victoza 3-To 0.6 mg/0.1 mL (18 mg/3 mL) subcutaneous pen injector RxNorm: 786165 3mg Milliliter(s) SQ daily 90 days worth 12/09/2012 03/08/2013 Inactive scopolamine 1.5 mg transdermal 72 hour patch RxNorm: 705092 1 Patch TD Q72H 10/26/2012 01/04/2014 Inactive scopolamine 1.5 mg 72 hr Transderm Patch RxNorm: 086501 1 Patch TD Q72H 10/26/2012 10/25/2012 Inactive metformin ER 1,000 mg tablet,extended release 24hr RxNorm: 656850 1 Tablet(s) PO BID 10/11/2012 06/29/2013 Inactive Victoza 3-To 0.6 mg/0.1 mL (18 mg/3 mL) Sub-Q Pen Injector RxNorm: 766024 1.8 Milliliter(s) SQ daily 1.8 mg dose daily 09/23/2012 12/08/2012 Inactive Victoza 3-To 0.6 mg/0.1 mL (18 mg/3 mL) Sub-Q Pen Injector RxNorm: 972295 3.0 Milliliter(s) SQ daily 1.2 + 1.8 mg dose daily 201209/22/2012 Inactive Celexa 40 mg tablet RxNorm: 627926 1 Tablet(s) PO daily TAKE ONE TABLET BY MOUTH DAILY 09/21/2012 05/18/2013 Inactive Cardizem LA 360 mg tablet,extended release RxNorm: 762617 1 Tablet(s) PO daily 07/20/2012 04/15/2013 Inactive metoprolol succinate ER 100 mg tablet,extended release 24 hr RxNorm: 271596 1 Tablet(s) PO daily 07/20/2012 04/13/2013 Inactive Byetta 10 mcg/0.04 mL per dose Sub-Q Pen Injector RxNorm: 342287 1 Milliliter(s) SQ BID 06/18/2012 09/22/2012 Inactive Diovan 320 mg tablet RxNorm: 068771 1 Tablet(s) PO daily 201203/14/2013 Inactive metformin ER 1,000 mg tablet,extended release 24hr RxNorm: 955309 1 Tablet(s) PO BID 06/14/2012 09/11/2012 Inactive metformin ER 1,000 mg tablet,extended release 24hr RxNorm: 827678 1 Tablet(s) PO 06/14/2012 06/13/2012 Inactive Livalo 4 mg tablet RxNorm: 805309 1 Tablet(s) PO daily 201201/04/2014 Inactive Celexa 40 mg tablet RxNorm: 876400 1 Tablet(s) PO daily 201209/21/2012 Inactive Accu-Chek Instant Glucose Test Strips RxNorm: 1 Miscellaneous daily accucheck ratna glucometer 05/21/2012 06/14/2013 Inactive Diflucan 150 mg tablet RxNorm: 194240 1 Tablet(s) PO daily 05/26/2012 Inactive Flagyl 500 mg tablet RxNorm: 011836 1 Tablet(s) PO TID 201205/27/2012 Inactive aspirin 81 mg tablet RxNorm: 099451 1 Tablet(s) PO daily No Start Date Active Cardizem LA 360 mg tablet,extended release RxNorm: 837185 1 Tablet(s) PO daily No Start Date 07/19/2012 Inactive metformin ER 750 mg tablet,extended release 24 hr RxNorm: 912982 1 Tablet(s) PO TID No Start Date 06/13/2012 Inactive Zithromax Z-To 250 mg tablet RxNorm: 664716 Tablet(s) PO No Start Date 06/13/2012 Inactive Diovan 320 mg tablet RxNorm: 015662 1 Tablet(s) PO daily No Start Date 06/17/2012 Inactive Byetta 10 mcg/0.04 mL per dose Sub-Q Pen Injector RxNorm: 150989 1 Milliliter(s) SQ BID No Start Date 06/17/2012 Inactive Vivelle 0.05 mg/24 hr Transderm Patch RxNorm: 505705 1 Patch TD [id number] No Start Date 12/03/2015 Inactive Minivelle 0.0375 mg/24 hr transdermal patch RxNorm: 7362175 1 Patch TD BIW No Start Date 03/15/2018 Inactive Fish Oil 1,000 mg capsule RxNorm: 1 Capsule(s) PO BID No Start Date 05/29/2015 Inactive Celexa 40 mg tablet RxNorm: 580276 1 Tablet(s) PO daily No Start Date 06/09/2012 Inactive levothyroxine 100 mcg tablet RxNorm: 658424 1 Tablet(s) PO daily No Start Date 04/16/2015 Inactive Fish Oil 1,000 mg capsule RxNorm: 1 Capsule(s) PO daily No Start Date 12/02/2015 Inactive Vitamin B-12 1,000 mcg/mL oral drops RxNorm: 5152322 1 Milliliter(s) PO daily No Start Date 12/02/2015 Inactive metoprolol succinate ER 100 mg tablet,extended release 24 hr RxNorm: 113047 1 Tablet(s) PO daily No Start Date 2012 Inactive promethazine-codeine 6.25 mg-10 mg/5 mL Syrup RxNorm: 140443 5-10 Milliliter(s) PO Q6 PRN No Start Date 12/12/2012 Inactive Percocet 5 mg-325 mg tablet RxNorm: 7113328 1-2 Tablet(s) PO Q6 PRN No Start Date 10/02/2013 Inactive hydrochlorothiazide 25 mg tablet RxNorm: 033916 1 Tablet(s) PO daily No Start Date 06/05/2013 Inactive Victoza 2-To 0.6 mg/0.1 mL (18 mg/3 mL) subcutaneous pen injector RxNorm: 552776 Milligram(s) SQ 1.8mg daily No Start Date 09/13/2013 Inactive Livalo 4 mg tablet RxNorm: 541255 1 Tablet(s) PO daily No Start Date 06/09/2012 Inactive Medication Administered Medication Codes Instructions Start Date Status Kenalog 40 mg/mL suspension for injection RxNorm: 9652586 Milliliter 02/22/2018 No longer Active Kenalog 40 mg/mL suspension for injection RxNorm: 6110702 Milliliter 01/22/2016 No longer Active Kenalog 40 mg/mL suspension for injection RxNorm: 5149703 Milliliter 11/23/2014 No longer Active Kenalog 40 mg/mL suspension for injection RxNorm: 2582743 Milliliter 11/22/2014 No longer Active ketorolac 60 mg/2 mL intramuscular solution RxNorm: 168751 2Milliliter 06/06/2013 No longer Active Immunizations Vaccine Codes Date Status Influenza CVX: 141 01/07/2018 completed Influenza CVX: 141 01/05/2014 completed Influenza CVX: 141 04/22/2013 completed Influenza CVX: 141 02/04/2012 completed Assessments Condition Codes Effective Dates Essential (primary) hypertension ICD-10: I10 ICD-9: 401.1 06/30/2018 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 ICD-9: 434.01 06/30/2018 Type 2 diabetes mellitus with hyperglycemia ICD-10: E11.65 ICD-9: 250.02 06/30/2018 Pseudobulbar affect ICD-10: F48.2 ICD-9: 310.81 06/02/2018 Generalized anxiety disorder ICD-10: F41.1 ICD-9: 300.02 06/02/2018 Other abnormalities of gait and mobility ICD-10: R26.89 ICD-9: 781.2 06/02/2018 Type 2 diabetes mellitus without complications ICD-10: E11.9 ICD-9: 250.00 04/28/2018 Other specified symptoms and signs involving the circulatory and respiratory systems ICD-10: R09.89 ICD-9: 785.9 04/28/2018 Other allergic rhinitis ICD-10: J30.89 ICD-9: 477.8 02/22/2018 Actinic keratosis ICD-10: L57.0 ICD-9: 702.0 02/22/2018 Pain in left forearm ICD-10: M79.632 ICD-9: 729.5 02/22/2018 Major depressive disorder, single episode, moderate ICD-10: F32.1 ICD-9: 296.22 02/22/2018 Other acute sinusitis ICD-10: J01.80 ICD-9: 461.8 02/22/2018 Other specified hypothyroidism ICD-10: E03.8 ICD-9: 244.8 01/07/2018 VACCIN FOR INFLUENZA ICD-10: Z23 ICD-9: V04.81 01/07/2018 Hypothyroidism, unspecified ICD-10: E03.9 ICD-9: 244.9 12/31/2017 [...] Visit Reason For Visit Effective Dates Notes diabetes mellitus 06/30/2018 diabetes mellitus 06/02/2018 diabetes mellitus 04/28/2018 Hospital Follow Up 03/29/2018 sinus congestion 02/22/2018 [...] 29.5 pg 01/05/2018 Cbc With Differential Ord2 [facility]% 5.5 % 01/05/2018 Cbc With Differential Ord2 [...] 1.46 K/ul 01/05/2018 Cbc With Differential Ord2 [facility] ABS# 0.5 K/ul 01/05/2018 Cbc With Differential Ord2 Eos ABS# 0.2 K/ul 01/05/2018 Cbc With Differential Ord2 Baso ABS# 0.1 K/ul 01/05/2018 Free T4 Hlk224 FREE T4 0.92 ng/dL 01/05/2018 Lipid Ord30 CHOL 200 mg/dL 01/05/2018 Lipid Ord30 HDL 48.0 mg/dl 01/05/2018 Lipid Ord30 TRIG 143 mg/dL 01/05/2018 Lipid Ord30 LDL 123 mg/dL 01/05/2018 Lipid Ord30 C/HDL 4.2 Ratio 01/05/2018 Comp Metabolic Nde388 NA 142 mEq/L 01/05/2018 Comp Metabolic Tue306 K 3.9 mEq/L 01/05/2018 Comp Metabolic Pup426 CL 99 mEq/L 01/05/2018 Comp Metabolic Egx728 CO2 34.0 mEq/L 01/05/2018 Comp Metabolic Tkz647 ANION GAP 13 01/05/2018 Comp Metabolic Avh972 GLUCOSE 205 mg/dL 01/05/2018 Comp Metabolic Suo367 Creat 1.0 mg/dL 01/05/2018 Comp Metabolic Hjz273 eGFR 65 ml/min/1.73m2 01/05/2018 Comp Metabolic Cei015 BUN 12 mg/dL 01/05/2018 Comp Metabolic Mpy192 B/C Ratio 12.6 Ratio 01/05/2018 Comp Metabolic Rvi279 CALCIUM 9.5 mg/dL 01/05/2018 Comp Metabolic Rpc282 ALK PHOS 150 U/L 01/05/2018 Comp Metabolic Pen035 AST(SGOT) 16 U/L 01/05/2018 Comp Metabolic Xtx748 ALT(SGPT) 15 U/L 01/05/2018 Comp Metabolic Rts916 BILI T 0.6 mg/dL 01/05/2018 Comp Metabolic Rsm969 ALBUMIN 3.9 g/dL 01/05/2018 Comp Metabolic Zet239 TPRO 6.6 g/dL 01/05/2018 Comp Metabolic Jqn990 GLOB 2.7 g/dL 01/05/2018 Comp Metabolic Voy997 A/G Ratio 1.5 Ratio 01/05/2018 Comp Metabolic Kyf517 Osmo 289 mOsmo 01/05/2018 %Hba1C Xis301 % HbA1c 61457-8 10.9 % 01/05/2018 %Hba1C Jae527 Gluc Ave 266 mg/dL 01/05/2018 Lipid Ord30 CHOL 207 mg/dL 09/29/2017 Lipid Ord30 HDL 55.0 mg/dl 09/29/2017 Lipid Ord30 TRIG 152 mg/dL 09/29/2017 Lipid Ord30 LDL 122 mg/dL 09/29/2017 Lipid Ord30 C/HDL 3.8 Ratio 09/29/2017 Cbc With Differential Ord2 WBC 11.11 K/ul 09/29/2017 Cbc With Differential Ord2 RBC 5.48 M/ul 09/29/2017 Cbc With Differential Ord2 HGB 16.6 g/dl 09/29/2017 Cbc With Differential Ord2 HCT 49.1 % 09/29/2017 Cbc With Differential Ord2 Neut% 80.4 % 09/29/2017 Cbc With Differential Ord2 MCV 89.6 fl 09/29/2017 Cbc With Differential Ord2 Lymph% 12.5 % 09/29/2017 Cbc With Differential Ord2 MCH 30.3 pg 09/29/2017 Cbc With Differential Ord2 [facility]% 5.5 % 09/29/2017 Cbc With Differential Ord2 [...] 1.39 K/ul 09/29/2017 Cbc With Differential Ord2 [facility] ABS# 0.6 K/ul 09/29/2017 Cbc With Differential Ord2 Eos ABS# 0.1 K/ul 09/29/2017 Cbc With Differential Ord2 Baso ABS# 0.1 K/ul 09/29/2017 Comp Metabolic Ekc587 NA 140 mEq/L 09/29/2017 Comp Metabolic Tef991 K 3.4 mEq/L 09/29/2017 Comp Metabolic Oeo982 CL 96 mEq/L 09/29/2017 Comp Metabolic Jca572 CO2 33.0 mEq/L 09/29/2017 Comp Metabolic Cey775 ANION GAP 14 09/29/2017 Comp Metabolic Fbx664 GLUCOSE 287 mg/dL 09/29/2017 Comp Metabolic Mns866 Creat 0.8 mg/dL 09/29/2017 Comp Metabolic Tlw563 eGFR 77 ml/min/1.73m2 09/29/2017 Comp Metabolic Mvy014 BUN 13 mg/dL 09/29/2017 Comp Metabolic Spg841 B/C Ratio 15.9 Ratio 09/29/2017 Comp Metabolic Tmf885 CALCIUM 9.4 mg/dL 09/29/2017 Comp Metabolic Ufz352 ALK PHOS 147 U/L 09/29/2017 Comp Metabolic Hnl491 AST(SGOT) 17 U/L 09/29/2017 Comp Metabolic Hal132 ALT(SGPT) 25 U/L 09/29/2017 Comp Metabolic Hdt434 BILI T 0.7 mg/dL 09/29/2017 Comp Metabolic Kus962 ALBUMIN 4.2 g/dL 09/29/2017 Comp Metabolic Hqk977 TPRO 6.8 g/dL 09/29/2017 Comp Metabolic Ekp930 GLOB 2.6 g/dL 09/29/2017 Comp Metabolic Wki849 A/G Ratio 1.6 Ratio 09/29/2017 Comp Metabolic Tnk551 Osmo 290 mOsmo 09/29/2017 %Hba1C Fuz120 % HbA1c 32147-0 11.4 % 09/29/2017 %Hba1C Yxf308 Gluc Ave 280 mg/dL 09/29/2017 Free T4 Ehn791 FREE T4 1.14 ng/dL 09/29/2017 Tsh Ord6 TSH (3rd IS) 2.91 uIU/mL 09/29/2017 Lipid Ord30 CHOL 182 mg/dL 06/02/2017 Lipid Ord30 HDL 57.0 mg/dl 06/02/2017 Lipid Ord30 TRIG 126 mg/dL 06/02/2017 Lipid Ord30 LDL 100 mg/dL 06/02/2017 Lipid Ord30 C/HDL 3.2 Ratio 06/02/2017 %Hba1C Dfj576 % HbA1c 27684-2 8.2 % 06/02/2017 %Hba1C Pii115 Gluc Ave 189 mg/dL 06/02/2017 Comp Metabolic Lue392 NA 143 mEq/L 11/12/2016 Comp Metabolic Hxa477 K 3.3 mEq/L 11/12/2016 Comp Metabolic Egc286 CL 102 mEq/L 11/12/2016 Comp Metabolic Kme242 CO2 30.0 mEq/L 11/12/2016 Comp Metabolic Myi685 ANION GAP 14 11/12/2016 Comp Metabolic Qqb482 GLUCOSE 141 mg/dL 11/12/2016 Comp Metabolic Vag591 Creat 0.8 mg/dL 11/12/2016 Comp Metabolic Frp761 eGFR 76 ml/min/1.73m2 11/12/2016 Comp Metabolic Eat989 BUN 11 mg/dL 11/12/2016 Comp Metabolic Vqf373 B/C Ratio 13.3 Ratio 11/12/2016 Comp Metabolic Yaf079 CALCIUM 9.2 mg/dL 11/12/2016 Comp Metabolic Nub851 ALK PHOS 116 U/L 11/12/2016 Comp Metabolic Jfd966 AST(SGOT) 21 U/L 11/12/2016 Comp Metabolic Xal827 ALT(SGPT) 28 U/L 11/12/2016 Comp Metabolic Loc616 BILI T 0.5 mg/dL 11/12/2016 Comp Metabolic Lfg733 ALBUMIN 3.8 g/dL 11/12/2016 Comp Metabolic Xpd381 TPRO 6.4 g/dL 11/12/2016 Comp Metabolic Hcg663 GLOB 2.6 g/dL 11/12/2016 Comp Metabolic Dkl570 A/G Ratio 1.5 Ratio 11/12/2016 Comp Metabolic Wlk208 Osmo 287 mOsmo 11/12/2016 Lipid Ord30 CHOL [...] 30.3 pg 11/12/2016 Cbc With Differential Ord2 [facility]% 5.8 % 11/12/2016 Cbc With Differential Ord2 [...] 1.47 K/ul 11/12/2016 Cbc With Differential Ord2 [facility] ABS# 0.5 K/ul 11/12/2016 Cbc With Differential Ord2 Eos ABS# 0.2 K/ul 11/12/2016 Cbc With Differential Ord2 Baso ABS# 0.0 K/ul 11/12/2016 Tsh Ord6 hTSH II 1.59 uIU/mL 11/12/2016 %Hba1C Rjj468 % HbA1c 87940-5 7.5 % 11/12/2016 %Hba1C Rgo945 Gluc Ave 169 mg/dL 11/12/2016 Free T4 Sjd654 FREE T4 0.91 ng/dL 11/12/2016 Cbc With [...] 29.7 pg 07/04/2016 Cbc With Differential Ord2 [facility]% 7.1 % 07/04/2016 Cbc With Differential Ord2 [...] 1.10 K/ul 07/04/2016 Cbc With Differential Ord2 [facility] ABS# 0.6 K/ul 07/04/2016 Cbc With Differential Ord2 Eos ABS# 0.1 K/ul 07/04/2016 Cbc With Differential Ord2 Baso ABS# 0.1 K/ul 07/04/2016 Lipid Ord30 CHOL 282 mg/dL 07/04/2016 Lipid Ord30 HDL 53.0 mg/dl 07/04/2016 Lipid Ord30 TRIG 136 mg/dL 07/04/2016 Lipid Ord30 LDL 202 mg/dL 07/04/2016 Lipid Ord30 C/HDL 5.3 Ratio 07/04/2016 Tsh Ord6 hTSH II 1.21 uIU/mL 07/04/2016 %Hba1C Liz132 % HbA1c 92280-6 7.1 % 07/04/2016 %Hba1C Aby091 Gluc Ave 157 mg/dL 07/04/2016 Comp Metabolic Spe349 NA 141 mEq/L 07/04/2016 Comp Metabolic Vuk904 K 3.5 mEq/L 07/04/2016 Comp Metabolic Cig551 CL 100 mEq/L 07/04/2016 Comp Metabolic Prq262 CO2 34.0 mEq/L 07/04/2016 Comp Metabolic Zqo253 ANION GAP 11 07/04/2016 Comp Metabolic Vtn944 GLUCOSE 144 mg/dL 07/04/2016 Comp Metabolic Slh683 Creat 0.8 mg/dL 07/04/2016 Comp Metabolic Aex294 eGFR 75 ml/min/1.73m2 07/04/2016 Comp Metabolic Ipt316 BUN 10 mg/dL 07/04/2016 Comp Metabolic Fbr810 B/C Ratio 11.9 Ratio 07/04/2016 Comp Metabolic Flz547 CALCIUM 9.4 mg/dL 07/04/2016 Comp Metabolic Ckk685 ALK PHOS 116 U/L 07/04/2016 Comp Metabolic Yyu215 AST(SGOT) 16 U/L 07/04/2016 Comp Metabolic Czq911 ALT(SGPT) 17 U/L 07/04/2016 Comp Metabolic Blj304 BILI T 0.6 mg/dL 07/04/2016 Comp Metabolic Sfi625 ALBUMIN 4.3 g/dL 07/04/2016 Comp Metabolic Fpn536 TPRO 7.0 g/dL 07/04/2016 Comp Metabolic Vap159 GLOB 2.7 g/dL 07/04/2016 Comp Metabolic Oiv316 A/G Ratio 1.6 Ratio 07/04/2016 Comp Metabolic Btq801 Osmo 283 mOsmo 07/04/2016 Free T4 Ewo279 FREE T4 0.87 ng/dL 07/04/2016 Cbc With Differential Ord2 WBC 5.56 K/ul 03/31/2016 Cbc With Differential Ord2 RBC 4.75 M/ul 03/31/2016 Cbc With Differential Ord2 HGB 14.2 g/dl 03/31/2016 Cbc With Differential Ord2 HCT 43.1 % 03/31/2016 Cbc With Differential Ord2 Neut% 69.6 % 03/31/2016 Cbc With Differential Ord2 MCV 90.7 fl 03/31/2016 Cbc With Differential Ord2 Lymph% 21.9 % 03/31/2016 Cbc With Differential Ord2 MCH 29.9 pg 03/31/2016 Cbc With Differential Ord2 [facility]% 6.5 % 03/31/2016 Cbc With Differential Ord2 [...] 1.22 K/ul 03/31/2016 Cbc With Differential Ord2 [facility] ABS# 0.4 K/ul 03/31/2016 Cbc With Differential Ord2 Eos ABS# 0.1 K/ul 03/31/2016 Cbc With Differential Ord2 Baso ABS# 0.0 K/ul 03/31/2016 Comp Metabolic Tly849 NA 137 mEq/L 03/31/2016 Comp Metabolic Csr145 K 3.3 mEq/L 03/31/2016 Comp Metabolic Zek580 CL 101 mEq/L 03/31/2016 Comp Metabolic Viw054 CO2 26.0 mEq/L 03/31/2016 Comp Metabolic Iea894 ANION GAP 13 03/31/2016 Comp Metabolic Wcq320 GLUCOSE 150 mg/dL 03/31/2016 Comp Metabolic Txl397 Creat 0.9 mg/dL 03/31/2016 Comp Metabolic Czt390 eGFR 71 ml/min/1.73m2 03/31/2016 Comp Metabolic Dvw030 BUN 13 mg/dL 03/31/2016 Comp Metabolic Cuc585 B/C Ratio 14.8 Ratio 03/31/2016 Comp Metabolic Jqs381 CALCIUM 8.8 mg/dL 03/31/2016 Comp Metabolic Pts554 ALK PHOS 103 U/L 03/31/2016 Comp Metabolic Mgh400 AST(SGOT) 18 U/L 03/31/2016 Comp Metabolic Oju340 ALT(SGPT) 21 U/L 03/31/2016 Comp Metabolic Wff291 BILI T 0.4 mg/dL 03/31/2016 Comp Metabolic Was523 ALBUMIN 3.9 g/dL 03/31/2016 Comp Metabolic Lmb785 TPRO 6.5 g/dL 03/31/2016 Comp Metabolic Sbn960 GLOB 2.6 g/dL 03/31/2016 Comp Metabolic Rgl831 A/G Ratio 1.5 Ratio 03/31/2016 Comp Metabolic Kcc729 Osmo 277 mOsmo 03/31/2016 Cbc With Differential [...] 30.4 pg 02/12/2016 Cbc With Differential Ord2 [facility]% 7.0 % 02/12/2016 Cbc With Differential Ord2 [...] 2.42 K/ul 02/12/2016 Cbc With Differential Ord2 [facility] ABS# 0.7 K/ul 02/12/2016 Cbc With Differential Ord2 Eos ABS# 0.2 K/ul 02/12/2016 Cbc With Differential Ord2 Baso ABS# 0.1 K/ul 02/12/2016 Comp Metabolic Enf471 NA 138 mEq/L 02/01/2016 Comp Metabolic Gae398 K 4.3 mEq/L 02/01/2016 Comp Metabolic Kfh644 CL 101 mEq/L 02/01/2016 Comp Metabolic Oim181 CO2 27.0 mEq/L 02/01/2016 Comp Metabolic Ysb761 ANION GAP 14 02/01/2016 Comp Metabolic Qwc892 GLUCOSE 127 mg/dL 02/01/2016 Comp Metabolic Lxu226 Creat 1.0 mg/dL 02/01/2016 Comp Metabolic Phv742 eGFR 61 ml/min/1.73m2 02/01/2016 Comp Metabolic Vhu324 BUN 21 mg/dL 02/01/2016 Comp Metabolic Tos096 B/C Ratio 20.8 Ratio 02/01/2016 Comp Metabolic Iir251 CALCIUM 9.1 mg/dL 02/01/2016 Comp Metabolic Iql167 ALK PHOS 105 U/L 02/01/2016 Comp Metabolic Nga433 AST(SGOT) 14 U/L 02/01/2016 Comp Metabolic Jvp453 ALT(SGPT) 26 U/L 02/01/2016 Comp Metabolic Nfv945 BILI T 0.4 mg/dL 02/01/2016 Comp Metabolic Sfm828 ALBUMIN 3.9 g/dL 02/01/2016 Comp Metabolic Znx044 TPRO 6.7 g/dL 02/01/2016 Comp Metabolic Kna062 GLOB 2.8 g/dL 02/01/2016 Comp Metabolic Zsw596 A/G Ratio 1.4 Ratio 02/01/2016 Comp Metabolic Qag256 Osmo 280 mOsmo 02/01/2016 Tsh Ord6 hTSH [...] 30.4 pg 02/01/2016 Cbc With Differential Ord2 [facility]% 5.8 % 02/01/2016 Cbc With Differential Ord2 [...] 3.74 K/ul 02/01/2016 Cbc With Differential Ord2 [facility] ABS# 0.8 K/ul 02/01/2016 Cbc With Differential Ord2 Eos ABS# 0.2 K/ul 02/01/2016 Cbc With Differential Ord2 Baso ABS# 0.0 K/ul 02/01/2016 %Hba1C Hbb688 % HbA1c 79126-2 6.9 % 01/07/2016 %Hba1C Thg693 Gluc Ave 151 mg/dL 01/07/2016 Tsh Ord6 hTSH II 0.99 uIU/mL 11/08/2015 Free T4 Xwy900 FREE T4 1.01 ng/dL 11/08/2015 %Hba1C Bfz938 % HbA1c 60263-0 6.6 % 09/14/2015 %Hba1C Jim484 Gluc Ave 143 mg/dL 09/14/2015 Lipid Ord30 [...] 29.9 pg 09/12/2015 Cbc With Differential Ord2 [facility]% 5.9 % 09/12/2015 Cbc With Differential Ord2 MCHC [...] 1.48 K/ul 09/12/2015 Cbc With Differential Ord2 [facility] ABS# 0.4 K/ul 09/12/2015 Cbc With Differential Ord2 Eos ABS# 0.1 K/ul 09/12/2015 Cbc With Differential Ord2 Baso ABS# 0.0 K/ul 09/12/2015 Cbc With Differential Ord2 New Analyzer Notice Please note new ref ranges starting 05-09-2015 due to implemntation of new five part differential hematolgy analyzer. 09/12/2015 Comp Metabolic Ita918 NA 139 mEq/L 09/12/2015 Comp Metabolic Lcj861 K 3.7 mEq/L 09/12/2015 Comp Metabolic Tcs615 CL 102 mEq/L 09/12/2015 Comp Metabolic Zgw817 CO2 30.0 mEq/L 09/12/2015 Comp Metabolic Xle902 ANION GAP 11 09/12/2015 Comp Metabolic Vef711 GLUCOSE 135 mg/dL 09/12/2015 Comp Metabolic Rch644 Creat 0.8 mg/dL 09/12/2015 Comp Metabolic Enp707 eGFR 86 ml/min/1.73m2 09/12/2015 Comp Metabolic Jqr403 BUN 10 mg/dL 09/12/2015 Comp Metabolic Chc206 B/C Ratio 13.3 Ratio 09/12/2015 Comp Metabolic Pbn511 CALCIUM 8.8 mg/dL 09/12/2015 Comp Metabolic Iai645 ALK PHOS 95 U/L 09/12/2015 Comp Metabolic Nxj798 AST(SGOT) 18 U/L 09/12/2015 Comp Metabolic Nwt206 ALT(SGPT) 20 U/L 09/12/2015 Comp Metabolic Cyg546 BILI T 0.5 mg/dL 09/12/2015 Comp Metabolic Bkk049 ALBUMIN 3.9 g/dL 09/12/2015 Comp Metabolic Fso445 TPRO 6.5 g/dL 09/12/2015 Comp Metabolic Fkj430 GLOB 2.6 g/dL 09/12/2015 Comp Metabolic Lst932 A/G Ratio 1.5 Ratio 09/12/2015 Comp Metabolic Hap402 Osmo 279 mOsmo 09/12/2015 Tsh Ord6 hTSH II 0.81 uIU/mL 08/01/2015 Free T4 Dmo707 FREE T4 0.82 ng/dL 08/01/2015 Vitamin B12 935036 VITAMIN B12 TEST NOT PERFORMED pg/mL 2015 Vitamin D 25 Oh Hjc4247 VITAMIN D, 25 HYDROXY 50.78 ng/mL Comp Metabolic Goc776 NA 142 mEq/L 04/12/2015 Comp Metabolic Rxk586 K 3.5 mEq/L 04/12/2015 Comp Metabolic Wki654 CL 102 mEq/L 04/12/2015 Comp Metabolic Drg203 CO2 32.0 mEq/L 04/12/2015 Comp Metabolic Gxt801 ANION GAP 12 04/12/2015 Comp Metabolic Ekc834 GLUCOSE 130 mg/dL 04/12/2015 Comp Metabolic Lqa487 Creat 0.8 mg/dL 04/12/2015 Comp Metabolic Fev078 eGFR 78 ml/min/1.73m2 04/12/2015 Comp Metabolic Ywi372 BUN 12 mg/dL 04/12/2015 Comp Metabolic Ahl519 B/C Ratio 14.6 Ratio 04/12/2015 Comp Metabolic Zpa881 CALCIUM 8.9 mg/dL 04/12/2015 Comp Metabolic Krt063 ALK PHOS 95 U/L 04/12/2015 Comp Metabolic Xcd323 AST(SGOT) 21 U/L 04/12/2015 Comp Metabolic Whd757 ALT(SGPT) 23 U/L 04/12/2015 Comp Metabolic Vio685 BILI T 0.4 mg/dL 04/12/2015 Comp Metabolic Geu600 ALBUMIN 3.9 g/dL 04/12/2015 Comp Metabolic Qum559 TPRO 6.3 g/dL 04/12/2015 Comp Metabolic Kcr006 GLOB 2.4 g/dL 04/12/2015 Comp Metabolic Ajo328 A/G Ratio 1.6 Ratio 04/12/2015 Comp Metabolic Vpk539 Osmo 285 mOsmo 04/12/2015 Tsh Ord6 hTSH II 0.18 uIU/mL 04/12/2015 %Hba1C Lvc228 % HbA1c 91116-6 6.4 % 04/12/2015 %Hba1C Jel582 Gluc Ave 137 mg/dL 04/12/2015 Free T4 Gjh179 FREE T4 1.13 ng/dL 04/12/2015 Cbc With [...] Ord2 RDW 14.6 % 11/14/2014 Comp Metabolic Yyj938 NA 137 mEq/L 11/14/2014 Comp Metabolic Nau985 K 3.6 mEq/L 11/14/2014 Comp Metabolic Ian628 CL 98 mEq/L 11/14/2014 Comp Metabolic Wka905 CO2 31.0 mEq/L 11/14/2014 Comp Metabolic Rhu035 ANION GAP 12 11/14/2014 Comp Metabolic Tew482 GLUCOSE 110 mg/dL 11/14/2014 Comp Metabolic Yxa678 Creat 0.8 mg/dL 11/14/2014 Comp Metabolic Cli672 eGFR 81 ml/min/1.73m2 11/14/2014 Comp Metabolic Xkp464 BUN 14 mg/dL 11/14/2014 Comp Metabolic Xje733 B/C Ratio 17.7 Ratio 11/14/2014 Comp Metabolic Nzt653 CALCIUM 9.2 mg/dL 11/14/2014 Comp Metabolic Ssk469 ALK PHOS 135 U/L 11/14/2014 Comp Metabolic Opd602 AST(SGOT) 17 U/L 11/14/2014 Comp Metabolic Qqe853 ALT(SGPT) 20 U/L 11/14/2014 Comp Metabolic Grs048 BILI T 0.3 mg/dL 11/14/2014 Comp Metabolic Moo110 ALBUMIN 3.7 g/dL 11/14/2014 Comp Metabolic Mic656 TPRO 6.5 g/dL 11/14/2014 Comp Metabolic Mco735 GLOB 2.8 g/dL 11/14/2014 Comp Metabolic Otu271 A/G Ratio 1.3 Ratio 11/14/2014 Comp Metabolic Fey958 Osmo 275 mOsmo 11/14/2014 CHEM 14 1199428 AST 18 U/L 04/11/2014 CHEM 14 1355701 ALT 25 IU/L 04/11/2014 CHEM 14 4823285 BUN 13 MG/DL 04/11/2014 CHEM 14 8189587 ALBUMIN 4.1 GM/DL 04/11/2014 CHEM 14 5301693 CHLORIDE 103 MMOL/L 04/11/2014 CHEM 14 4093279 BILI TOT 0.3 MG/DL 04/11/2014 CHEM 14 2555709 ALK PHOS 107 U/L 04/11/2014 CHEM 14 4040577 SODIUM 139 MMOL/L 04/11/2014 CHEM 14 6402098 CREATININE 0.85 MG/DL 04/11/2014 CHEM 14 0944127 CALCIUM 9.2 MG/DL 04/11/2014 CHEM 14 3949315 POTASSIUM 3.7 MMOL/L 04/11/2014 CHEM 14 0382991 PROT TOT 7.1 GM/DL 04/11/2014 CHEM 14 4624212 GLUCOSE 85 MG/DL 04/11/2014 CHEM 14 3752915 BICARB 28 MMOL/L 04/11/2014 CHEM 14 0011656 ANION GAP 8 MEQ/L 04/11/2014 GFR CALC 5364558 GFR AA >60 ML/MIN 04/11/2014 GFR CALC 6278887 GFR NON-AA >60 ML/MIN 04/11/2014 URINALYSIS NONAUTO W/O SCOPE 39177 Specific [place] 1.020 DateTime(Free Text in Aprima) URINALYSIS NONAUTO W/O SCOPE 93160 PH 5.0 DateTime(Free Text in Aprima) URINALYSIS NONAUTO W/O SCOPE 23105 Protein neg DateTime( Free Text in Aprima) URINALYSIS NONAUTO W/O SCOPE 15774 Blood neg DateTime(Free Text in Aprima) URINALYSIS NONAUTO W/O SCOPE 41283 Bilirubin neg DateTime(Free Text in Aprima) URINALYSIS NONAUTO W/O SCOPE 49168 Ketones small DateTime(Free Text in Aprima) URINALYSIS NONAUTO W/O SCOPE 25346 Urobilinogen neg DateTime(Free Text in Aprima) URINALYSIS NONAUTO W/O SCOPE 33340 Nitrite neg DateTime( Free Text in Aprima) URINALYSIS NONAUTO W/O SCOPE 95152 Leukocytes neg DateTime(Free Text in Aprima) Review of Systems System Result Effective Dates Constitutional recent illness 06/30/2018 Constitutional No chills 06/30/2018 Constitutional No diaphoresis 06/30/2018 Constitutional fatigue 06/30/2018 Constitutional No fever 06/30/2018 Eyes No eye discharge 06/30/2018 Eyes No eye erythema 06/30/2018 Ears/Nose/Throat/Neck No nasal allergies 06/30/2018 Ears/Nose/Throat/Neck No nasal discharge 06/30/2018 Cardiovascular No chest pain/pressure 09/2018 Cardiovascular No dyspnea 06/30/2018 Respiratory No productive sputum 2018 Respiratory No chest congestion 2018 Respiratory No cough 06/30/2018 Gastrointestinal No abdominal pain 2018 Gastrointestinal No constipation 2018 Gastrointestinal No diarrhea 06/30/2018 Gastrointestinal No nausea 06/30/2018 Gastrointestinal No vomiting 06/30/2018 Musculoskeletal No joint complaint 2018 Musculoskeletal muscle weakness 2018 Dermatologic No rash 06/30/2018 Dermatologic No sores 06/30/2018 Neurologic No alteration of consciousness 06/30/2018 Neurologic memory loss 06/30/2018 Neurologic weakness 06/30/2018 Psychiatric depression 06/30/2018 Endocrine diabetes mellitus type 2 2018 Cardiovascular hypertension 06/30/2018 Constitutional recent illness 06/02/2018 Constitutional No chills 06/02/2018 Constitutional No diaphoresis 06/02/2018 Constitutional fatigue 06/02/2018 Constitutional No fever 06/02/2018 Eyes No eye discharge 06/02/2018 Eyes No eye erythema 06/02/2018 Ears/Nose/Throat/Neck No nasal allergies 06/02/2018 Ears/Nose/Throat/Neck No nasal discharge 06/02/2018 Cardiovascular No chest pain/pressure 09/2018 Cardiovascular No dyspnea 06/02/2018 Respiratory No productive sputum 2018 Respiratory No chest congestion 2018 Respiratory No cough 06/02/2018 Gastrointestinal No abdominal pain 2018 Gastrointestinal No constipation 2018 Gastrointestinal No diarrhea 06/02/2018 Gastrointestinal No nausea 06/02/2018 Gastrointestinal No vomiting 06/02/2018 Musculoskeletal No joint complaint 2018 Musculoskeletal muscle weakness 2018 Dermatologic No rash 06/02/2018 Dermatologic No sores 06/02/2018 Neurologic No alteration of consciousness 06/02/2018 Neurologic memory loss 06/02/2018 Psychiatric depression 06/02/2018 Endocrine diabetes mellitus type 2 2018 Neurologic weakness 06/02/2018 Constitutional recent illness 04/28/2018 Constitutional No chills 04/28/2018 Constitutional No diaphoresis 04/28/2018 Constitutional fatigue 04/28/2018 Constitutional No fever 04/28/2018 Eyes No eye discharge 04/28/2018 Eyes No eye erythema 04/28/2018 Ears/Nose/Throat/Neck No nasal allergies 04/28/2018 Ears/Nose/Throat/Neck No nasal discharge 04/28/2018 Cardiovascular No chest pain/pressure 05/2018 Cardiovascular No dyspnea 04/28/2018 Respiratory No productive sputum 2018 Respiratory No chest congestion 2018 Respiratory No cough 04/28/2018 Gastrointestinal No abdominal pain 2018 Gastrointestinal No constipation 2018 Gastrointestinal No diarrhea 04/28/2018 Gastrointestinal No nausea 04/28/2018 Gastrointestinal No vomiting 04/28/2018 Musculoskeletal No joint complaint 2018 Musculoskeletal muscle weakness 2018 Dermatologic No rash 04/28/2018 Dermatologic No sores 04/28/2018 Neurologic No alteration of consciousness 04/28/2018 Psychiatric depression 04/28/2018 Endocrine diabetes mellitus type 2 2018 Neurologic memory loss 04/28/2018 Constitutional recent illness 03/29/2018 Constitutional No chills [...] 1994 Constitutional general appearance Overall: well developed 06/30/2018 None Full Exam - General 1994 Constitutional general appearance Overall: in no acute distress 06/30/2018 None Full Exam - General 1994 Constitutional general appearance Overall: well nourished 06/30/2018 None Full Exam - General 1994 Eyes conjunctiva /eyelids Overall: conjunctiva clear 06/30/2018 None Full Exam - General 1994 Eyes conjunctiva /eyelids Overall: cornea clear 06/30/2018 None Full Exam - General 1994 Eyes conjunctiva /eyelids Overall: eyelids normal 06/30/2018 None Full Exam - General 1994 Ears/Nose/Throat otoscopic exam Overall: external auditory canals clear 06/30/2018 None Full Exam - General 1994 Ears/Nose/Throat otoscopic exam Overall: tympanic membranes clear 06/30/2018 None Full Exam - General 1994 Ears/Nose/Throat lips/teeth/gingiva Overall: benign lips 06/30/2018 None Full Exam - General 1994 Ears/Nose/Throat oral cavity/pharynx/larynx Overall: oral mucosa clear 06/30/2018 None Full Exam - General 1994 Ears/Nose/Throat oral cavity/pharynx/larynx Overall: oropharyngeal mucosa clear 06/30/2018 None Full Exam - General 1994 Respiratory auscultation Overall: breath sounds clear bilaterally 06/30/2018 None Full Exam - General 1994 Respiratory respiratory effort/rhythm Overall: no retractions 06/30/2018 None Full Exam - General 1994 Respiratory respiratory effort/rhythm Overall: normal rate 06/30/2018 None Full Exam - General 1994 Cardiovascular extremities Overall: no clubbing 06/30/2018 None Full Exam - General 1994 Cardiovascular auscultation of heart Overall: regular rate 06/30/2018 None Full Exam - General 1994 Cardiovascular auscultation of heart Overall: normal heart sounds 06/30/2018 None Full Exam - General 1994 Abdomen abdominal exam Overall: normal bowel sounds 06/30/2018 None Full Exam - General 1994 Musculoskeletal head and neck Overall: head atraumatic 06/30/2018 None Full Exam - General 1994 Neurologic cranial nerves Overall: crainial nerves 2 - 12 grossly intact 06/30/2018 None Full Exam - General 1994 Psychiatric orientation/consciousness Overall: oriented to person, place and time 06/30/2018 None Full Exam - General 1994 Psychiatric mood and affect Overall: normal mood and affect 06/30/2018 None Full Exam - General 1994 Constitutional general appearance Overall: well developed 06/02/2018 None Full Exam - General 1994 Constitutional general appearance Overall: in no acute distress 06/02/2018 None Full Exam - General 1994 Constitutional general appearance Overall: well nourished 06/02/2018 None Full Exam - General 1994 Eyes conjunctiva /eyelids Overall: conjunctiva clear 06/02/2018 None Full Exam - General 1994 Eyes conjunctiva /eyelids Overall: cornea clear 06/02/2018 None Full Exam - General 1994 Eyes conjunctiva /eyelids Overall: eyelids normal 06/02/2018 None Full Exam - General 1994 Ears/Nose/Throat otoscopic exam Overall: external auditory canals clear 06/02/2018 None Full Exam - General 1994 Ears/Nose/Throat otoscopic exam Overall: tympanic membranes clear 06/02/2018 None Full Exam - General 1994 Ears/Nose/Throat lips/teeth/gingiva Overall: benign lips 06/02/2018 None Full Exam - General 1994 Ears/Nose/Throat oral cavity/pharynx/larynx Overall: oral mucosa clear 06/02/2018 None Full Exam - General 1994 Ears/Nose/Throat oral cavity/pharynx/larynx Overall: oropharyngeal mucosa clear 06/02/2018 None Full Exam - General 1994 Respiratory auscultation Overall: breath sounds clear bilaterally 06/02/2018 None Full Exam - General 1994 Respiratory respiratory effort/rhythm Overall: no retractions 06/02/2018 None Full Exam - General 1994 Respiratory respiratory effort/rhythm Overall: normal rate 06/02/2018 None Full Exam - General 1994 Cardiovascular extremities Overall: no clubbing 06/02/2018 None Full Exam - General 1994 Cardiovascular auscultation of heart Overall: regular rate 06/02/2018 None Full Exam - General 1994 Cardiovascular auscultation of heart Overall: normal heart sounds 06/02/2018 None Full Exam - General 1994 Abdomen abdominal exam Overall: normal bowel sounds 06/02/2018 None Full Exam - General 1994 Lymphatic neck nodes Overall: anterior cervical chain benign 06/02/2018 None Full Exam - General 1994 Lymphatic neck nodes Overall: posterior cervical chain benign 06/02/2018 None Full Exam - General 1994 Musculoskeletal head and neck Overall: head atraumatic 06/02/2018 None Full Exam - General 1994 Neurologic cranial nerves Overall: crainial nerves 2 - 12 grossly intact 06/02/2018 None Full Exam - General 1994 Psychiatric orientation/consciousness Overall: oriented to person, place and time 06/02/2018 None Full Exam - General 1994 Psychiatric mood and affect Overall: normal mood and affect 06/02/2018 None Full Exam - General 1995 Constitutional general appearance Overall: well developed 04/28/2018 None Full Exam - General 1995 Constitutional general appearance Overall: in no acute distress 04/28/2018 None Full Exam - General 1995 Constitutional general appearance Overall: well nourished 04/28/2018 None Full Exam - General 1994 Eyes conjunctiva /eyelids Overall: conjunctiva clear 04/28/2018 None Full Exam - General 1994 Eyes conjunctiva /eyelids Overall: cornea clear 04/28/2018 None Full Exam - General 1994 Eyes conjunctiva /eyelids Overall: eyelids normal 04/28/2018 None Full Exam - General 1994 Ears/Nose/Throat otoscopic exam Overall: external auditory canals clear 04/28/2018 None Full Exam - General 1994 Ears/Nose/Throat otoscopic exam Overall: tympanic membranes clear 04/28/2018 None Full Exam - General 1994 Ears/Nose/Throat lips/teeth/gingiva Overall: benign lips 04/28/2018 None Full Exam - General 1994 Ears/Nose/Throat oral cavity/pharynx/larynx Overall: oral mucosa clear 04/28/2018 None Full Exam - General 1994 Ears/Nose/Throat oral cavity/pharynx/larynx Overall: oropharyngeal mucosa clear 04/28/2018 None Full Exam - General 1994 Respiratory auscultation Overall: breath sounds clear bilaterally 04/28/2018 None Full Exam - General 1994 Respiratory respiratory effort/rhythm Overall: no retractions 04/28/2018 None Full Exam - General 1994 Respiratory respiratory effort/rhythm Overall: normal rate 04/28/2018 None Full Exam - General 1994 Cardiovascular extremities Overall: no clubbing 04/28/2018 None Full Exam - General 1994 Cardiovascular auscultation of heart Overall: regular rate 04/28/2018 None Full Exam - General 1994 Cardiovascular auscultation of heart Overall: normal heart sounds 04/28/2018 None Full Exam - General 1994 Abdomen abdominal exam Overall: normal bowel sounds 04/28/2018 None Full Exam - General 1994 Lymphatic neck nodes Overall: anterior cervical chain benign 04/28/2018 None Full Exam - General 1994 Lymphatic neck nodes Overall: posterior cervical chain benign 04/28/2018 None Full Exam - General 1994 Musculoskeletal head and neck Overall: head atraumatic 04/28/2018 None Full Exam - General 1994 Neurologic cranial nerves Overall: crainial nerves 2 - 12 grossly intact 04/28/2018 None Full Exam - General 1994 Psychiatric orientation/consciousness Overall: oriented to person, place and time 04/28/2018 None Full Exam - General 1994 Psychiatric mood and affect Overall: normal mood and affect 04/28/2018 None Full Exam - General 1994 Constitutional [...] rate 06/30/2013 None Full Exam - General 1995 Cardiovascular extremities Overall: no clubbing 06/30/2013 None [...] exam 06/30/2013 None Full Exam - General 1995 Musculoskeletal [...] clear 06/30/2013 None Full Exam - General 1995 Ears/Nose/Throat oral cavity/pharynx/larynx Overall: no masses 06/30/2013 [...] bilaterally 06/06/2013 None Full Exam - General 1995 Cardiovascular auscultation of heart Overall: regular rate 06/06/2013 None Full Exam - General 1994 Cardiovascular auscultation of heart Overall: normal heart sounds 06/06/2013 None Full Exam - General 1994 Cardiovascular auscultation of heart Overall: no murmurs 06/06/2013 None Full Exam - General 1995 Musculoskeletal upper extremity Inspection - shoulder: a [...] masses 06/14/2012 None Full Exam - General 1994 [...] accomodation 06/14/2012 None Full Exam - General 1995 Constitutional general appearance Overall: well nourished 06/14/2012 [...] distress 05/21/2012 None Full Exam - General 1995 Constitutional general appearance Overall: well nourished 05/21/2012 [...] accomodation 05/21/2012 None Procedures Procedure Codes Date URINALYSIS NONAUTO W/O SCOPE CPT-4: 60391 06/30/2018 TRIAMCINOLONE ACET INJ NOS CPT-4: J3301 02/22/2018 IMMUNIZATION ADMIN CPT -4: 00293 01/07/2018 FLU VAC NO PRSV 4 SHAKILA 3 YRS+ CPT-4: 85206 01/07/2018 TRIAMCINOLONE ACET INJ NOS CPT-4: J3301 01/22/2016 TRIAMCINOLONE ACET INJ NOS CPT-4: J3301 11/23/2014 THER/PROPH/DIAG INJ SC/IM CPT-4: 67253 11/23/2014 THER/PROPH/DIAG INJ SC/IM CPT-4: 74170 11/22/2014 TRIAMCINOLONE ACET INJ NOS CPT-4: J3301 11/22/2014 URINALYSIS NONAUTO W/O SCOPE CPT-4: 38881 11/14/2014 ROUTINE VENIPUNCTURE CPT-4: 97815 04/11/2014 CHEM 14 (COMPREHEN METABOLIC PANEL) CPT-4: 73887 04/11/2014 IMMUNIZATION ADMIN CPT -4: 59444 01/05/2014 FLU VAC NO PRSV 4 SHAKILA 3 YRS+ Assigned to/Alyssa Thomas CPT-4: 37481Sbdutbd 01/05/2014 FOOT EXAM PERFORMED SNOMED CT: [id number] CPT-4: 2028F 06/20/2013 THER/PROPH/DIAG INJ SC/IM CPT-4: 63866 06/06/2013 KETOROLAC TROMETHAMINE INJ CPT-4: J1885 06/06/2013 Vital Signs Date Vital 06/30/2018 Blood Pressure 1: 148/90 Code : 8480-6 BMI: 29.7 Code : 75176-2 Heart Rate 1 : 87 bpm Height: 5'6" SpO2: 96% Weight: 181 lbs 06/02/2018 Blood Pressure 1: 148/86 Code : 8480-6 BMI: 29.7 Code : 74618-0 Heart Rate 1 : 98 bpm Height: 5'6" SpO2: 97% Weight: 181 lbs 04/28/2018 Blood Pressure 1: 138/78 Code : 8480-6 BMI: 30.0 Code : 39939-1 Heart Rate 1 : 89 bpm Height: 5'6" SpO2: 99% Weight: 183 lbs 03/29/2018 Blood Pressure 1: 140/72 Code : 8480-6 BMI: 31.8 Code : 02908-0 Heart Rate 1 : 78 bpm Height: 5'6" SpO2: 99% Weight: 194 lbs 02/22/2018 Blood Pressure 1: 130/68 Code : 8480-6 BMI: 31.5 Code : 79341-0 Heart Rate 1 : 91 bpm Height: 5'6" SpO2: 98% Weight: 192 lbs 01/07/2018 Blood Pressure 1: 138/82 Code : 8480-6 BMI: 31.3 Code : 20272-9 Heart Rate 1 : 95 bpm Height: 5'6" SpO2: 98% Weight: 191 lbs 10/01/2017 Blood Pressure 1: 138/88 Code : 8480-6 BMI: 30.3 Code : 06432-0 Heart Rate 1 : 80 bpm Height: 5'6" SpO2: 98% Weight: 185 lbs 06/08/2017 Blood Pressure 1: 148/92 Code : 8480-6 BMI: 31.5 Code : 94556-7 Heart Rate 1 : 88 bpm Height: 5'6" SpO2: 98% Weight: 192 lbs 11/12/2016 Blood Pressure 1: 140/80 Code : 8480-6 BMI: 29.7 Code : 11218-6 Heart Rate 1 : 82 bpm Height: 5'6" SpO2: 96% Weight: 181 lbs 08/11/2016 Blood Pressure 1: 152/88 Code : 8480-6 BMI: 30.3 Code : 12272-7 Heart Rate 1 : 73 bpm Height: 5'6" SpO2: 98% Weight: 185 lbs 03/31/2016 Blood Pressure 1: 124/86 Code : 8480-6 BMI: 30.2 Code : 98646-5 Heart Rate 1 : 86 bpm Height: 5'6" SpO2: 95% Weight: 184 lbs 02/01/2016 Blood Pressure 1: 112/60 Code : 8480-6 BMI: 29.5 Code : 38784-8 Heart Rate 1 : 68 bpm Height: 5'6" SpO2: 98% Weight: 180 lbs 01/22/2016 Blood Pressure 1: 132/80 Code : 8480-6 BMI: 29.8 Code : 96750-4 Heart Rate 1 : 76 bpm Height: 5'6" SpO2: 98% Temperature: 35.7 (C) / 96.2 (F) Weight: 182 lbs 01/07/2016 Blood Pressure 1: 134/86 Code : 8480-6 BMI: 30.0 Code : 09337-0 Heart Rate 1 : 78 bpm Height: 5'6" SpO2: 98% Weight: 183 lbs 12/03/2015 Blood Pressure 1: 146/86 Code : 8480-6 BMI: 30.2 Code : 29106-1 Heart Rate 1 : 93 bpm Height: 5'6" SpO2: 98% Weight: 184 lbs 8 oz 09/17/2015 Blood Pressure 1: 140/88 Code : 8480-6 BMI: 29.5 Code : 38114-0 Heart Rate 1 : 77 bpm Height: 5'6" SpO2: 98% Weight: 180 lbs 05/29/2015 Blood Pressure 1: 140/80 Code : 8480-6 BMI: 28.2 Code : 65401-4 Heart Rate 1 : 83 bpm Height: 5'6" SpO2: 98% Weight: 172 lbs 12/12/2014 Blood Pressure 1: 150/92 Code : 8480-6 BMI: 28.2 Code : 52856-4 Heart Rate 1 : 91 bpm Height: 5'6" SpO2: 96% Weight: 172 lbs 11/23/2014 Blood Pressure 1: 138/92 Code : 8480-6 11/22/2014 Blood Pressure 1: 126/80 Code : 8480-6 BMI: 28.7 Code : 16582-6 Heart Rate 1 : 86 bpm Height: 5'6" SpO2: 97% Weight: 175 lbs 11/14/2014 Blood Pressure 1: 130/82 Code : 8480-6 BMI: 28.7 Code : 30458-4 Heart Rate 1 : 72 bpm Height: 5'6" Temperature: 36.3 (C) / 97.4 (F) Weight: 175 lbs 09/04/2014 Blood Pressure 1: 128/82 Code : 8480-6 BMI: 30.3 Code : 65089-9 Heart Rate 1 : 80 bpm Height: 5'6" Weight: 185 lbs 08/04/2014 Blood Pressure 1: 140/82 Code : 8480-6 BMI: 31.3 Code : 35851-4 Heart Rate 1 : 92 bpm Height: 5'6" SpO2: 99% Weight: 191 lbs 04/11/2014 Blood Pressure 1: 142/80 Code : 8480-6 BMI: 34.7 Code : 62707-5 Heart Rate 1 : 74 bpm Height: 5'6" Weight: 212 lbs 01/05/2014 Blood Pressure 1: 144/84 Code : 8480-6 BMI: 36.7 Code : 14296-6 Heart Rate 1 : 89 bpm Height: 5'6" SpO2: 97% Weight: 224 lbs 10/10/2013 Blood Pressure 1: 112/70 Code : 8480-6 BMI: 36.1 Code : 31464-7 Heart Rate 1 : 104 bpm Height: 5'6" Weight: 220 lbs 08/02/2013 Blood Pressure 1: 178/98 Code : 8480-6 BMI: 36.4 Code : 60974-6 Heart Rate 1 : 100 bpm Height: 5'6" Weight: 222 lbs 06/30/2013 Blood Pressure 1: 142/82 Code : 8480-6 BMI: 35.9 Code : 67559-6 Heart Rate 1 : 86 bpm Height: 5'6" SpO2: 98% Temperature: 36.3 (C) / 97.3 (F) Weight: 219 lbs 06/20/2013 Blood Pressure 1: 126/78 Code : 8480-6 BMI: 36.2 Code : 21701-5 Heart Rate 1 : 76 bpm Height: 5'6" Weight: 221 lbs 06/06/2013 Blood Pressure 1: 158/98 Code : 8480-6 BMI: 36.2 Code : 09668-3 Heart Rate 1 : 92 bpm Height: 5'6" Weight: 221 lbs 02/21/2013 Blood Pressure 1: 128/82 Code : 8480-6 BMI: 35.2 Code : 66918-0 Heart Rate 1 : 80 bpm Height: 5'6" Temperature: 35.7 (C) / 96.3 (F) Weight: 215 lbs 12/13/2012 Blood Pressure 1: 132/86 Code : 8480-6 BMI: 35.7 Code : 61102-5 Heart Rate 1 : 80 bpm Height: 5'6" Weight: 218 lbs 09/23/2012 Blood Pressure 1: 132/90 Code : 8480-6 BMI: 36.2 Code : 30965-2 Heart Rate 1 : 84 bpm Height: 5'6" Weight: 221 lbs 06/14/2012 Blood Pressure 1: 134/84 Code : 8480-6 Heart Rate 1: 84 bpm Respiratory Rate : 20 bpm Weight: 221 lbs 05/21/2012 Blood Pressure 1: 136/80 Code : 8480-6 BMI: 35.9 Code : 46942-3 Heart Rate 1 : 20 bpm Height: 5'6" Respiratory Rate: 16 bpm Temperature: 36.7 ( C) / 98.0 (F) Weight: 219 lbs Functional Status No Functional Status data History of Present Illness Symptom Name Status Result Effective Date Notes Quality insulin dependent 06/30/2018 None Quality chronic 06/30 None Severity moderate 09/2018 None Alleviating Factors insulin 06/30/2018 None Exacerbating Factors diet 06/30/2018 None Pertinent Findings Denies dizziness 06/30/2018 None Pertinent Findings Denies dyspnea 06/30/2018 None Pertinent Findings Denies nausea 06/30/2018 None Quality chronic 06/30 None Quality primary hypertension 06/30/2018 None Onset and Resolution ongoing 06/30/2018 None Onset of Symptom Denies during adulthood 06/30/2018 None Blood Pressure Values pt checking blood pressure - see scanned document 06/30/2018 -On her phone Alleviating Factors medication 06/30/2018 None Pertinent Findings Denies edema 06/30/2018 None Quality left-sided None Quality upper extremities 06/30/2018 None Quality lower extremities 06/30/2018 None Quality acute 2018 None Onset and Resolution sudden in onset 06/30/2018 None Onset and Resolution ongoing 06/30/2018 None Onset of Symptom Denies 3.5+ months ago 06/30/2018 None Limitation on Activities moderately limits activities 06/30/2018 None Frequency of Episodes daily 06/30/2018 None Test results Pt checking blood glucose at home, see scanned readings 06/30/2018 - On her phone Glucose monitoring daily 06/30/2018 None Quality insulin dependent 06/02/2018 None Quality chronic 06/02 None Severity moderate 09/2018 None Alleviating Factors insulin 06/02/2018 None Exacerbating Factors diet 06/02/2018 None Pertinent Findings Denies dizziness 06/02/2018 None Pertinent Findings Denies dyspnea 06/02/2018 None Pertinent Findings Denies nausea 06/02/2018 None Quality chronic 06/02 None Quality primary hypertension 06/02/2018 None Onset and Resolution ongoing 06/02/2018 None Onset of Symptom Denies during adulthood 06/02/2018 None Blood Pressure Values pt checking blood pressure - see scanned document 06/02/2018 -On her phone Alleviating Factors medication 06/02/2018 None Pertinent Findings Denies edema 06/02/2018 None Quality left-sided None Quality upper extremities 06/02/2018 None Quality lower extremities 06/02/2018 None Quality acute 2018 None Onset and Resolution sudden in onset 06/02/2018 None Onset and Resolution ongoing 06/02/2018 None Onset of Symptom Denies 2.5+ months ago 06/02/2018 None Limitation on Activities moderately limits activities 06/02/2018 None Frequency of Episodes daily 06/02/2018 None Glucose monitoring daily 06/02/2018 None Test results Pt checking blood glucose at home, see scanned readings 06/02/2018 - On her phone Quality insulin dependent 04/28/2018 None Severity moderate 05/2018 None Alleviating Factors insulin 04/28/2018 None Exacerbating Factors diet 04/28/2018 None Quality chronic 04/28 None Onset and Resolution ongoing 04/28/2018 None Quality left-sided None Quality acute 2018 None Quality improving 05/2018 None Test results Pt checking blood glucose at home, see scanned readings 04/28/2018 - On her phone Glucose monitoring daily 04/28/2018 None Pertinent Findings Denies dizziness 04/28/2018 None Pertinent Findings Denies dyspnea 04/28/2018 None Pertinent Findings Denies nausea 04/28/2018 None Quality primary hypertension 04/28/2018 None Onset of Symptom Denies during adulthood 04/28/2018 None Blood Pressure Values pt checking blood pressure - see scanned document 04/28/2018 -On her phone Pertinent Findings Denies edema 04/28/2018 None Alleviating Factors medication 04/28/2018 None Quality chronic 04/28 None Quality upper extremities 04/28/2018 None Quality lower extremities 04/28/2018 None Onset and Resolution ongoing 04/28/2018 None Onset and Resolution sudden in onset 04/28/2018 None Onset of Symptom Denies 1.5+ months ago 04/28/2018 None Limitation on Activities moderately limits activities 04/28/2018 None Frequency of Episodes daily 04/28/2018 None _ Other: stroke 03/29 None Onset of [...] surgery was canceled. She was referred to refining engineer at acute renal failure Onset of Symptom [...] diabetes mellitus Exercise minimal exercise 01/05/2014 starting [facility] diabetes mellitus Pertinent Findings Denies dyspnea [...] larynx 02/21/2013 patient went to [facility] thursday. was given a zpack, prednisone, and [...] data Encounters Encounter Performer Location Codes Date ([id number]) 06449 EST. 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 PATIENT, LEVEL IV Diagnosis: Other acute sinusitis[ICD10: J01.80] Diagnosis: Other allergic rhinitis[ICD10: J30.89] Diagnosis: Actinic keratosis[ICD10: L57.0] Diagnosis: Pain in left forearm[ICD10: M79.632] Diagnosis: Generalized anxiety disorder[ICD10: F41.1] Diagnosis: Major depressive disorder, single episode, moderate[ICD10: F32.1] Tiffanie Curran MD, [facility] CPT-4: 67781 02/22/2018 99312 EST. PATIENT, LEVEL IV Diagnosis: Type 2 diabetes mellitus with hyperglycemia[ICD10: E11.65] Diagnosis: Other specified hypothyroidism[ICD10: E03.8] Diagnosis: VACCIN FOR INFLUENZA[ICD10: Z23] Tiffanie Curran MD, [facility] CPT- 4: 73144 01/07/2018 21730 EST. PATIENT, LEVEL IV Diagnosis: Type 2 diabetes mellitus with hyperglycemia[ICD10: E11.65] Diagnosis: Other specified hypothyroidism[ICD10: E03.8] Diagnosis: Other allergic rhinitis[ICD10: J30.89] Tiffanie Curran MD, [facility] CPT-4: 88402 10/01/2017 01373 EST. PATIENT, LEVEL IV Diagnosis: Type 2 diabetes mellitus with hyperglycemia[ICD10: E11.65] Diagnosis: Hypothyroidism, unspecified[ICD10: E03.9] Diagnosis: Generalized anxiety disorder[ICD10: F41.1] Diagnosis: Major depressive disorder, single episode, moderate[ICD10: F32.1] Tiffanie Curran MD, [facility] CPT-4: 96045 06/08/2017 ([id number]) PREV VISIT EST AGE 40-64 Diagnosis: Encounter for general adult medical examination without abnormal findings[ICD10: Z00.00] Eleonora Curran MD, [facility] CPT-4: 34914 11/12/2016 ([id number]) 30856 EST. PATIENT, LEVEL III Diagnosis: Allergic rhinitis due to pollen[ICD10: J30.1] Diagnosis: Acute upper respiratory infection, unspecified[ICD10: J06.9] Talya Curran MD, [facility] CPT-4: 86277 09/16/2016 ([id number]) 36660 EST. PATIENT, LEVEL IV Diagnosis: Essential (primary) hypertension[ICD10: I10] Diagnosis: Type 2 diabetes mellitus without complications[ICD10: E11.9] Diagnosis: Functional diarrhea[ICD10: K59.1] Diagnosis: Mixed hyperlipidemia[ICD10: E78.2] Eleonora Curran MD, [facility] CPT-4: 48751 08/11/2016 ([id number]) 71952 EST. PATIENT, LEVEL III Diagnosis: Cramp and spasm[ICD10: R25.2] Diagnosis: Nausea[ICD10: R11.0] Talya Curran MD, [facility] CPT-4: 83907 03/31/2016 ([id number]) 79751 EST. PATIENT, LEVEL IV Diagnosis: Cough[ICD10: R05] Diagnosis: Essential (primary) hypertension[ICD10: I10] Diagnosis: Hypothyroidism, unspecified[ICD10: E03.9] Diagnosis: Gastro-esophageal reflux disease without esophagitis[ICD10: K21.9] Talya Curran MD, [facility] CPT-4: 40078 02/01/2016 ([id number]) 65363 EST. PATIENT, LEVEL III Diagnosis: Cough[ICD10: R05] Diagnosis: Acute bronchitis, unspecified[ICD10: J20.9] Talya Curran MD, [facility] CPT-4: 99247 01/22/2016 ([id number]) 42716 EST. PATIENT, LEVEL IV Diagnosis: Type 2 diabetes mellitus without complications[ICD10: E11.9] Diagnosis: Essential (primary) hypertension[ICD10: I10] Diagnosis: Dysphagia, pharyngeal phase[ICD10: R13.13] Eleonora Curran MD, [facility] CPT-4: 01397 01/07/2016 ([id number]) 79137 EST. PATIENT, LEVEL IV Diagnosis: Type 2 diabetes mellitus without complications[ICD10: E11.9] Diagnosis: Essential (primary) hypertension[ICD10: I10] Diagnosis: Pain in right knee[ICD10: M25.561] Eleonora Curran MD, [facility] CPT-4: 78917 12/03/2015 ([id number]) 60099 EST. PATIENT, LEVEL IV Diagnosis: Type 2 diabetes mellitus with hyperglycemia[ICD10: E11.65] Diagnosis: Essential (primary) hypertension[ICD10: I10] Eleonora Curran MD, [facility] CPT-4: 12699 09/17/2015 ([id number]) 02285 EST. 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 PATIENT, LEVEL III Diagnosis: Diabetes mellitus, type II[ICD9: 250.00] Diagnosis: ESSENTIAL HYPERTENSION[ICD9: 401.9] Diagnosis: ESOPHAGEAL REFLUX[ICD9: 530.81] Eleonora Curran MD [facility] CPT- 4: 50024 12/12/2014 ([id number]) 47624 EST. PATIENT, LEVEL III Diagnosis: ALLERGIC URTICARIA[ICD9: 708.0] Kristan Curran MD [facility] CPT-4 : 08624 11/22/2014 ([id number]) 18554 EST. PATIENT, LEVEL III Diagnosis: Abdominal pain[ICD9: 789.00] Diagnosis: Status post gastric surgery[ICD9: V45.89] Kristan Curran MD [facility] CPT-4: 91399 11/14/2014 ([id number]) 68038 EST. PATIENT, LEVEL III Diagnosis: Diabetes mellitus, type II[ICD9: 250.00] Diagnosis: ESSENTIAL HYPERTENSION[ICD9: 401.9] Diagnosis: OBESITY[ICD9: 278.00] Diagnosis: ESOPHAGEAL REFLUX[ICD9: 530.81] Eleonora Curran MD [facility] CPT- 4: 06091 09/04/2014 ([id number]) 43536 EST. PATIENT, LEVEL IV Diagnosis: Diabetes mellitus, type II[ICD9: 250.00] Diagnosis: ESSENTIAL HYPERTENSION[ICD9: 401.9] Diagnosis: OBESITY[ICD9: 278.00] Eleonora Curran MD, [facility] CPT-4: 66588 08/04/2014 ([id number]) 40790 EST. PATIENT, LEVEL IV Diagnosis: Thyroid nodule[ICD9: 241.0] Diagnosis: Decreased renal function[ICD9: 593.9] Diagnosis: Diabetes mellitus, type II[ICD9: 250.00] Talya Curran MD, [facility] CPT-4: 53031 04/11/2014 ([id number]) 90036 EST. PATIENT, LEVEL IV Diagnosis: Chronic diarrhea[ICD9: 787.91] Diagnosis: DM W/O COMPLICATION TYPE II, UNCONTROLLED[ICD9: 250.02] Diagnosis: ESSENTIAL HYPERTENSION[ICD9: 401.9] Talya Curran MD, [facility] CPT-4: 88176 01/05/2014 85691 EST. PATIENT, LEVEL IV Diagnosis: DM W/O COMPLICATION TYPE II, UNCONTROLLED[ICD9: 250.02] Diagnosis: OBESITY[ICD9: 278.00] Diagnosis: Generalized anxiety disorder[ICD9: 300.02] Diagnosis: ESSENTIAL HYPERTENSION[ICD9: 401.9] Eleonora Curran MD, [facility] CPT-4: 18858 10/10/2013 ([id number]) 65525 EST. PATIENT, LEVEL IV Diagnosis: DM W/O COMPLICATION TYPE II, UNCONTROLLED[ICD9: 250.02] Diagnosis: Shoulder pain, right[ICD9: 719.41] Diagnosis: INSOMNIA NOS[ICD9: 780.52] Eleonora Curran MD, [facility] CPT- 4: 11680 08/02/2013 ([id number]) [id number] EST. PATIENT, LEVEL IV Diagnosis: DM W/O COMPLICATION TYPE II, UNCONTROLLED[SNOMED: 73764503] Diagnosis: COUGH[ICD9: 786.2] Diagnosis: MYALGIA AND MYOSITIS[ICD9: 729.1] Eleonora Curran MD, [facility] CPT-4: 79637 06/30/2013 ([id number]) 44765 EST. PATIENT, LEVEL III Diagnosis: DM W/O COMPLICATION TYPE II, UNCONTROLLED[SNOMED: 03631191] Eleonora Curran MD [facility] CPT-4: 99062 06/20/2013 ([id number]) 24517 EST. PATIENT, LEVEL IV Diagnosis: DM W/O COMPLICATION TYPE II, UNCONTROLLED[SNOMED: 91543673] Eleonora Curran MD , [facility] CPT-4: 64368 06/06/2013 ([id number]) 03382 EST. PATIENT, LEVEL IV Diagnosis: Acute bronchitis[ICD9: 466.0] Diagnosis: Cough[ICD9: 786.2] Diagnosis: Myalgia[ICD9: 729.1] Eleonora Curran MD, [facility] CPT-4: 20254 02/21/2013 97305 EST. PATIENT, LEVEL IV Diagnosis: DM W/O COMPLICATION TYPE II, UNCONTROLLED[SNOMED: 76511157] Diagnosis: OBESITY[ICD9: 278.00] Diagnosis: Dietary counseling and surveillance[ICD9: V65.3] Eleonora Curran MD, [facility] CPT-4: 66302 12/13/2012 ([id number] 52603 EST. PATIENT, LEVEL IV Diagnosis: DM W/O COMPLICATION TYPE II, UNCONTROLLED[SNOMED: 04719362] Diagnosis: HYPERLIPIDEMIA[ICD9: 272.4] Eleonora Curran MD, [facility] CPT- 4: 12292 09/23/2012 ([id number] 03820 EST. PATIENT, LEVEL IV Diagnosis: Diabetes mellitus type 2, uncontrolled[SNOMED: 47784261] Diagnosis: Hyperlipidemia[ICD9: 272.4] Diagnosis: ESSENTIAL HYPERTENSION[SNOMED: 29131548] Talya Curran MD, [facility] CPT-4: 57610 06/14/2012 OFFICE VISIT, NEW - LEVEL 3 Diagnosis: Influenza[ICD9: 487.1] Diagnosis: COUGH[ICD9: 786.2] Diagnosis: FEVER NOS[ICD9: 780.60] Diagnosis: Diarrhea[ICD9: 787.91] Diagnosis: Diabetes mellitus, type II[SNOMED: 033589101] Talya Curran MD, [facility] CPT-4: 03661 05/21/2012 Plan of Care Planned Activity Notes Codes Status Date Visit Plan: Hypertension - uncontrolled - the [...] pt is to call for acute concerns. Increase metoprolol to 100mg daily. Diabetes Mellitus - controlled - per recent [...] readings are starting to become less controlled. 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 06/30/2018 Appointment: [facility] ([facility] min) Moderate 06/30/2018 Patient Education: Patient Medication Summary Completed 06/30/2018 Patient Education: Diabetes Completed 06/30/2018 Visit Plan: Hypertension - well controlled - [...] readings are starting to become less controlled. Stroke - muscle weakness - discussed with pt - she needs to apply for disability. 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 Pseudobulbar affect - discussed with pt - continue with nuedexta. 06/02/2018 Appointment: [facility] Curran [facility]el[facility] [facility] (15 min) Moderate 06/02/2018 Patient Education: Patient Medication Summary Completed 06/02/2018 Visit Plan: Stroke - with some memory loss and persistent left hand and leg weakness - Recommendation for patient to be off until after spring due to persistent weakness, and memory loss and fatigue - [facility] rx to [facility] [address] [facility] [place] Mellitus - controlled - per recent [...] readings are starting to become less controlled. Hypertension - well controlled - continue with current medications, continue with no added salt diet. Pt has been encouraged to exercise daily. The pt has been advised to call the office if there are any acute concerns about change in blood pressure readings at home. 04/28/2018 Appointment: Eleonora Curran WPtel: [address] [facility] [address] (15 min) Moderate 04/28/2018 Patient Education: Patient Medication Summary Completed 04/28/2018 Patient Education: Diabetes Completed 04/28/2018 Care Plan: Referral Order SNOMED-CT : [id number] Pending 04/28/2018 Appointment: Tiffanie Cr WPtel: [address] [facility] (30 min) Complex 04/07/2018 Visit Plan: Hypertension - well controlled - continue with current medications, continue with no added salt diet. Pt has been encouraged to exercise daily. The pt has been advised to call the office if there are any acute concerns about change in blood pressure readings at home. Diabetes Mellitus - improved control per pt's report, RX for freeOperative Mindyle aysha CGM for improved checking of her [...] for handicap placard for 6 months. 03/29/2018 Appointment: Eleonora Curran WPtel: [address] [facility] [address] (15 min) Moderate 03/29/2018 Patient Education: Patient Medication Summary Completed [...] lesions. 02/22/2018 Appointment: Tiffanie Cr WPtel: [facility]9 [facility] (15 min) Moderate 02/22/2018 Patient Education: Patient [...] of control. 01/07/2018 Appointment: Tiffanie Cr WPtel: [facility]9 [facility] [place] (15 min) Moderate 01/07/2018 Patient Education: Patient Medication Summary Completed 01/07/2018 Patient Education: Diabetes Completed 01/07/2018 Appointment: Tiffanie Cr WPtel: [facility]4 [facility] [place] (15 min) Moderate 12/31/2017 Patient Education: [...] nasal steroid allergy spray. 10/01/2017 [facility]ment[facility] ([facility] min) Moderate 10/01/2017 Patient Education: Patient Medication Summary Completed 10/01/2017 [facility]ment: [facility] (15 min) Moderate 09/07/2017 Visit Plan: Diabetes [...] patient. 06/08/2017 Appointment: Tiffanie Cr WPtel: [address] [facility] (30 min) Complex 06/08/2017 Patient Education: Patient [...] functioning. 11/12/2016 Appointment: Eleonora Curran WPtel: [facility]9 [facility] [address] (15 min) Moderate 11/12/2016 Patient Education: Patient Medication Summary Completed 11/12/2016 Patient Education: Patient Medication Summary Completed 11/12/2016 Appointment: Eleonora Curran WPtel: [facility]2 [facility] [address] (15 min) Moderate 11/06/2016 Visit Plan: Allergies [...] pharmacy. 09/16/2016 Appointment: Talya Hernandez WPtel: [address] [phone] [place] (10 min) Simple 09/16/2016 Patient Education: Patient Medication Summary Completed 09/16/2016 Care Plan: SCREENINGMAMMOGRAPHYDIGITAL LOINC : 59596-9 Pending 08/16/2016 Visit Plan: Diabetes Mellitus - [...] concerns. 08/11/2016 Appointment: Eleonora Curran WPtel: [facility] (15 min) Moderate 08/11/2016 Patient Education: Patient Medication Summary Completed 08/11/2016 Patient Education: Obesity Completed 08/11/2016 Appointment: Eleonora Curran WPtel: [facility] (15 min) Moderate 07/14/2016 Patient Education: Patient Medication Summary Completed 07/04/2016 Care Plan: Cbc With Differential Pending 07/04/2016 Care Plan: Comp Metabolic Pending 07/04/2016 Care Plan: Tsh Pending 07/04/2016 Care Plan: Lipid Pending 07/04/2016 Care Plan: %Hba1C LOINC : 66428-8 Pending 07/04/2016 Care Plan: Free T4 Pending 07/04/2016 Appointment: Eleonora Curran WPtel: [facility]1 [facility] [address] (15 min) Moderate 06/16/2016 Appointment: Eleonora Curran WPtel: [facility]7 [facility] [address] (15 min) Moderate 05/06/2016 Visit Plan: Gastroenteritis - discussed need to stay away from milk products while acutely ill with diarrhea and nausea and emesis as it may worsen the symptoms. Liquids initially until the nausea improves, then recommend to advance to bland diet for 1 day, then advance as tolerated. Call if symptoms not improved. 03/31/2016 Appointment: Talya Hernandez WPtel: [phone] [place] (10 min) Simple 03/31/2016 Patient Education: [...] improving. 02/01/2016 Appointment: Talya Hernandez WPtel: [facility]7 [phone] [place] (30 min) Complex 02/01/2016 Patient Education: Patient Medication Summary Completed 02/01/2016 Visit Plan: Bronchitis - acute case of bronchitis identified. Pt has been given antibiotics, breathing treatments as appropriate, and pt has been instructed to call if symptoms are not improved, or if symptoms acutely worsen. 01/22/2016 Appointment: Talya Hernandez WPtel: [address] [facility] (15 min) Moderate 01/22/2016 Patient Education: Patient [...] monitor 01/07/2016 Appointment: [facility] Curran [facility]Ptel[facility] [facility] (15 min) Moderate 01/07/2016 Patient Education: [...] glucose control. Trulicity started - victoza stopped 09/17/2015 Appointment: [facility]on[facility] Curran [facility]Ptel[facility] [facility] (15 min) Moderate 09/17/2015 Patient [...] Hypertension Completed 05/29/2015 Appointment: [facility]on[facility] Curran WPtel[facility] [facility] (15 min) Moderate 05/22/2015 Appointment: [...] control. 12/12/2014 Appointment: Eleon[facility] Curran WPtel[facility] [facility] (15 min) Moderate 12/12/2014 Patient Education: Patient Medication Summary Completed 12/12/2014 Patient Education: Hypertension Completed 12/12/2014 Appointment: [facility] Hernandez [facility]Ptel[facility] Follow up 11/28/2014 Patient Education: Patient [...] starting to become less controlled.victoza sample - [id number] exp 02/2016 novonordisk Hypertension - well controlled - continue with current medications, continue with no added salt diet. Pt has been encouraged to exercise daily. The pt has been advised to call the office if there are any acute concerns about change in blood pressure readings at home. 09/04/2014 Appointment: Eleonora Curran WPtel: [facility]3 [facility] Follow up 09/04/2014 Patient Education: Patient Medication Summary Completed 09/04/2014 Patient Education: Hypertension Completed 09/04/2014 Care Plan: [id number] Ordered 09/04/2014 Visit Plan: Hypertension - well [...] metformin 08/04/2014 Appointment: Eleonora Curran WPtel: [facility] Follow up 08/04/2014 Patient Education: Patient Medication Summary Completed 08/04/2014 Patient Education: Hypertension Completed 08/04/2014 Visit Plan: Thyroid nodules-nodule on left lobe has increased in size-biopsy scheduled for Decrease renal function- secondary to dehydration-repeat labs-maintain adequate oral intake-follow up with refining engineer as scheduled DM-hgb a1c improved-continue with same [...] Completed 01/05/2014 Appointment: Eleonora Curran WPtel: [facility] [facility] Follow up 01/03/2014 Visit Plan: [...] to relax. 10/10/2013 Appointment: Eleonora Curran WPtel: [facility] Follow up 10/10/2013 Patient Education: Patient Medication Summary Completed 10/10/2013 Patient Education: Hypertension Completed 10/10/2013 Appointment: Eleonora Curran WPtel: [facility]5 [facility] [address] Follow up 09/13/2013 Appointment: Eleonora Curran WPtel: [facility] Follow up 08/03/2013 Visit Plan: Diabetes [...] options. 08/02/2013 Appointment: Eleon[facility] Curran WPtel: [address] [facility] Follow up 08/02/2013 Patient Education: Patient [...] urgent care. 06/30/2013 Appointment: Eleonora Curran WPtel: [address] [facility] Sick 06/30/2013 Patient Education: Patient Medication [...] patient today. 06/20/2013 Appointment: Eleonora Curran WPtel: [address] [facility] [address] Diabetic education 06/20/2013 Patient Education: Patient Medication Summary Completed 06/20/2013 Appointment: Eleon[facility] Curran WPtel: [address] [facility] Follow up 06/13/2013 Visit Plan: Shoulder [...] acute bronchitis. 02/21/2013 Appointment: Eleonora Curran WPtel: [address] [place] [address] [facility] 02/21/2013 Patient Education: Patient Medication Summary [...] months. 12/13/2012 Appointment: [facility] Curran WPtel: [facility] [facility] Follow up 12/13/2012 Patient Education: Patient [...] medications. 09/23/2012 Appointment: [facility] Curran [facility]Ptel[facility] [facility] Follow up 09/23/2012 Patient Education: Patient [...] home. 06/14/2012 Appointment: Talya Hernandez WPtel: [address] [phone] Follow up 06/14/2012 Patient Education: Patient Medication Summary Completed 06/14/2012 Patient Education: Hypertension Completed 06/14/2012 Visit Plan: Keudi-lshej-ndxl aches-suspect influenza- patient no indication for tamiflu [...] less controlled. 05/21/2012 Appointment: Talya Hernandez WPtel: [address] [phone] [place] New Patient 05/21/2012 Patient Education: Patient Medication Summary Completed 05/21/2012 Referral: Hernandez Dennis WPtel: Referral Appointment Requested Referral: [facility] Referral Appointment Requested Referral: [facility] 04/29 Referral info faxed. They will contact her for appt. Patient informed Appointment Requested Instructions Comment Start taking vitamin [...] we will look into other treatment options. stay off of work until after spring break - come back to the office in 1 month we will make you an appt with Dr. Parrish - neurologist in [place]. stop the lisinopril and start on losartan - sometimes the lisinopril can cause a cough nuedexta - a medication to help with the severe mood swings - -start with one pill a day x 1 week and you may increase up to one pill twice a day thereafter. . Stroke - with some memory loss and persistent left hand and leg weakness - Recommendation for patient to be off until after spring break due to persistent weakness, and memory loss and fatigue - [facility] rx to [facility] [address] office make appt with dr. parrish in [place] Diabetes Mellitus - controlled - per recent [...] readings are starting to become less controlled. Hypertension - well controlled - continue with current medications, continue with no added salt diet. Pt has been encouraged to exercise daily. The pt has been advised to call the office if there are any acute concerns about change in blood pressure readings at home. Stop victoza - start Xultophy (it is [...] starting to become less controlled.victoza sample - [id number] exp 02/2016 novonordisk Hypertension - well controlled [...] of 10# weight loss in 3 months. . Hypertension - well controlled - continue [...] readings are starting to become less controlled. Stroke - muscle weakness - discussed with pt - she needs to apply for disability. 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 Pseudobulbar affect - discussed with pt - continue with nuedexta. I SENT ZITHROMAX TO [facility]-2 PILLS TODAY AND THEN 1 PILL DAILY UNTIL GONE. I ALSO SENT A PRESCRIPTION FOR DIFLUCAN FOR A YEAST INFECTION. Recommend PROBIOTIC twice daily-lactobacillus. START TODAY. [facility] Culturelle Align IF THE DIARRHEA PERSISTS OR WORSENS, START FLAGYL 500MG THREE TIMES DAILY-I SENT IT TO [facility]. I will call phenergan with codeine cough syrup to [facility]. Okay to take 5- 10ml every 6 hours as needed for cough. . Epdci-exhdd-ljar aches-suspect influenza-patient no indication for tamiflu due [...] control. Trulicity started - victoza stopped Plan: ([id number]) FLU VAC NO PRSV 4 SHAKILA 3 [...] dehydration-repeat labs-maintain adequate oral intake-follow up with refining engineer as scheduled DM-hgb a1c improved-continue with same [...] discussed in detail with patient today. . Hypertension - uncontrolled - the patient's [...] pt is to call for acute concerns. Increase metoprolol to 100mg daily. Diabetes Mellitus - controlled - per recent [...] readings are starting to become less controlled. 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 decrease citalopram to 1/2 tab daily x [...]
--- OUTSIDE RECORDS SUMMARY | 2018-07-06 23:39 | XMS REPORT | CCD ---
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 Role Phone PP Unavailable CCM Unavailable Summary Purpose Interface Exchange Insurance Providers Payer name Policy type / Coverage type Covered republican ID Effective Begin Date Effective End Date Blue Cross Blue [facility] Blue Cross/Blue [facility] [id number] Unknown Family history Son Diagnosis Age At [...] Description Effective Dates Employment Unknown Currently employed [employer] 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 ICD-9: 434.01 ICD-10: I63.341 Active 03/29/2018 Unknown Generalized anxiety disorder ICD-9: 300.02 ICD-10: F41.1 Active 06/08/2017 Unknown Other abnormalities of gait and mobility ICD-9: 781.2 ICD-10: R26.89 Active 06/02/2018 Unknown Pseudobulbar affect ICD-9: 310.81 ICD-10: F48.2 Active 06/02/2018 Unknown Essential (primary) hypertension ICD-9: 401.1 ICD-10: I10 Active 01/06/2016 Unknown Other specified symptoms and signs involving the circulatory and respiratory systems ICD-9: 785.9 ICD-10: R09.89 Active 04/28/2018 Unknown Type 2 diabetes mellitus without complications ICD-9: 250.00 ICD-10: E11.9 Active 04/11/2014 Unknown Type 2 diabetes mellitus with hyperglycemia [...] artery ICD-9: 434.01 ICD-10: I63.341 03/29/2018 Active Generalized anxiety disorder ICD-9: 300.02 ICD-10: F41.1 06/08/2017 Active Other abnormalities of gait and mobility ICD-9: 781.2 ICD-10: R26.89 06/02/2018 Active Pseudobulbar affect ICD-9: 310.81 ICD-10: F48.2 06/02/2018 Active Essential (primary) hypertension ICD-9: 401.1 ICD-10: I10 01/06/2016 Active Other specified symptoms and signs involving the circulatory and respiratory systems ICD-9: 785.9 ICD-10: R09.89 04/28/2018 Active Type 2 diabetes mellitus without complications ICD-9: 250.00 ICD-10: E11.9 04/11/2014 Active Type 2 diabetes mellitus with hyperglycemia [...] 50 mg tablet,extended release 24 hr RxNorm: 188081 1.5 Tablet(s) PO daily 06/02/2018 02/26/2019 Active losartan 100 mg tablet RxNorm: 585245 1 Tablet(s) PO daily 05/201801/22/2019 Active stop lisionpril and start on losartan Plavix 75 mg tablet RxNorm: 148030 1 Tablet(s) PO daily 201807/26/2018 Active oxybutynin chloride 5 mg tablet RxNorm: 860966 1 Tablet(s) PO daily 04/28/2018 04/22/2019 Active Nuedexta 20 mg-10 mg capsule RxNorm: 2877161 1 Capsule(s) PO daily x 1 week then increase up to BID 04/28/2018 11/23/2018 Active Lipitor 80 mg tablet RxNorm: 972465 1 Tablet(s) PO daily TAKE ONE TABLET BY MOUTH ONCE DAILY IN THE EVENING 04/28/201804/22 Active metoprolol succinate ER 50 mg tablet,extended release 24 hr RxNorm: 779245 TAKE 1 TABLET BY MOUTH ONCE DAILY 03/29/2018 Inactive Prozac 40 mg capsule RxNorm: 045012 1 Capsule(s) PO daily 03/0503/04/2018 Inactive Prozac 40 mg capsule RxNorm: 673143 1 Capsule(s) PO daily 03/0504/03/2018 Inactive amoxicillin 500 mg capsule RxNorm: 652762 1 Capsule(s) PO TID 02/22/2018 02/28/2018 Inactive Kenalog 40 mg/mL suspension for injection RxNorm: 5859280 Milliliter(s) Inj 02/22/2018 02/22/2018 Inactive Prozac 20 mg capsule RxNorm: 604123 1 Capsule(s) PO daily 02/2203/01/2018 Inactive Diflucan 150 mg tablet RxNorm: 524806 1 Tablet(s) PO daily 02/26/2018 Inactive levothyroxine 88 mcg tablet RxNorm: 918478 TAKE 1 TABLET BY MOUTH ONCE DAILY 02/15/2018 No Stop Date Active Cymbalta 60 mg capsule,delayed release RxNorm: 651060 TAKE 1 CAPSULE BY MOUTH ONCE DAILY 02/15/2018 04/27/2018 Inactive Diflucan 150 mg tablet RxNorm: 709941 1 Tablet(s) PO daily No Stop Date Active Xultophy 100/3.6 100 unit-3.6 mg/mL (3 mL) subcutaneous insulin pen RxNorm: 0856673 30 Unit(s) SQ daily 01/07/20182017 Inactive Xultophy 100/3.6 100 unit-3.6 mg/mL (3 mL) subcutaneous insulin pen RxNorm: 3978767 22 Unit(s) SQ daily 12/03/20172017 Inactive Xultophy 100/3.6 100 unit-3.6 mg/mL (3 mL) subcutaneous insulin pen RxNorm: 7510010 20 Unit(s) SQ daily 11/27/20172017 Inactive Xultophy 100/3.6 100 unit-3.6 mg/mL (3 mL) subcutaneous insulin pen RxNorm: 1042299 20 Unit(s) SQ daily 11/27/20172017 Inactive Xultophy 100/3.6 100 unit-3.6 mg/mL (3 mL) subcutaneous insulin pen RxNorm: 2384788 16 Unit(s) SQ daily 10/26/20172017 Inactive Xultophy 100/3.6 100 unit-3.6 mg/mL (3 mL) subcutaneous insulin pen RxNorm: 5114886 16 Unit(s) SQ daily 10/26/20172017 Inactive potassium chloride ER 10 mEq tablet,extended release RxNorm: 186395 1 Tablet(s) PO TIW 10/21/2017 10/15/2018 Active Diflucan 150 mg tablet RxNorm: 071547 TAKE ONE TABLET BY MOUTH ONCE DAILY 10/21/2017 01/06/2018 Inactive Cymbalta 60 mg capsule,delayed release RxNorm: 793806 1 Capsule(s) PO daily 10/07/2017 02/03/2018 Inactive potassium chloride ER 10 mEq tablet,extended release RxNorm: 215122 TAKE ONE TABLET BY MOUTH TWICE A WEEK 10/07/2017 Inactive Lipitor 20 mg tablet RxNorm: 853619 TAKE ONE TABLET BY MOUTH ONCE DAILY IN THE EVENING 09/04/2017 04/27/2018 Inactive metoprolol succinate ER 50 mg tablet,extended release 24 hr RxNorm: 015495 TAKE ONE TABLET BY MOUTH ONCE DAILY 09/04/2017 03/28/2018 Inactive Victoza 3-To 0.6 mg/0.1 mL (18 mg/3 mL) subcutaneous pen injector RxNorm: 072516 Milligram(s) SQ 09/02/2017 03/22/2018 Inactive Diflucan 150 mg tablet RxNorm: 095004 TAKE ONE TABLET BY MOUTH ONCE DAILY 09/02/2017 10/20/2017 Inactive potassium chloride ER 10 mEq tablet,extended release RxNorm: 279998 TAKE ONE TABLET BY MOUTH TWICE A WEEK 08/10/2017 Inactive levothyroxine 88 mcg tablet RxNorm: 395848 TAKE ONE TABLET BY MOUTH ONCE DAILY 08/10/2017 02/14/2018 Inactive Diflucan 150 mg tablet RxNorm: 371158 1 Tablet(s) PO daily 07/20/2017 Inactive Diflucan 150 mg tablet RxNorm: 326930 1 Tablet(s) PO daily 07/09/2017 Inactive Cymbalta 60 mg capsule,delayed release RxNorm: 260478 1 Capsule(s) PO daily 07/10/2017 07/09/2017 Inactive Cymbalta 60 mg capsule,delayed release RxNorm: 629304 1 Capsule(s) PO daily 07/10/2017 10/06/2017 Inactive Diflucan 150 mg tablet RxNorm: 997990 1 Tablet(s) PO daily 07/14/2017 Inactive Wellbutrin XL 150 mg 24 hr tablet, extended release RxNorm: 133805 1 Tablet(s) PO daily 06/08/2017 07/09/2017 Inactive Victoza 3-To 0.6 mg/0.1 mL (18 mg/3 mL) subcutaneous pen injector RxNorm: 252338 Milligram(s) SQ 06/08/2017 09/01/2017 Inactive Initiate at 0.6 mg per day for one week then increase to 1.2 mg. Dispense qty sufficient hydrochlorothiazide 25 mg tablet RxNorm: 855361 TAKE ONE TABLET BY MOUTH ONCE DAILY 05/25/2017 No Stop Date Active citalopram 40 mg tablet RxNorm: 324046 TAKE ONE TABLET BY MOUTH ONCE DAILY 05/13/2017 07/09/2017 Inactive potassium chloride ER 10 mEq tablet,extended release RxNorm: 186824 TAKE ONE TABLET BY MOUTH TWICE A WEEK 03/25/2017 Inactive hydrochlorothiazide 25 mg tablet RxNorm: 693847 TAKE ONE TABLET BY MOUTH ONCE DAILY 02/23/2017 05/24/2017 Inactive levothyroxine 88 mcg tablet RxNorm: 341978 TAKE ONE TABLET BY MOUTH ONCE DAILY 01/28/2017 07/26/2017 Inactive Trulicity 1.5 mg/0.5 mL subcutaneous pen injector RxNorm: 0752584 INJECT ONE SYRINGE SUBCUTANEOUSLY ONCE A WEEK 01/27/2017 07/09/2017 Inactive Diflucan 150 mg tablet RxNorm: 659634 1 Tablet(s) PO daily 12/31/2016 Inactive Invokana 100 mg tablet RxNorm: 5524220 1 Tablet(s) PO daily 11/201602/03/2017 Inactive Invokana 100 mg tablet RxNorm: 1495812 1 Tablet(s) PO daily 11/201612/01/2016 Inactive potassium chloride ER 10 mEq tablet,extended release RxNorm: 953775 1 Tablet(s) PO BIW 11/17/2016 11/16/2016 Inactive metformin 500 mg tablet RxNorm: 581325 1 Tablet(s) PO BID 11/1712/01/2016 Inactive potassium chloride ER 10 mEq tablet,extended release RxNorm: 091410 1 Tablet(s) PO BIW 11/17/2016 11/16/2016 Inactive potassium chloride ER 10 mEq tablet,extended release RxNorm: 383332 1 Tablet(s) PO 2 times weekly 11/17/2016 10/06/2017 Inactive Diflucan 150 mg tablet RxNorm: 912679 1 Tablet(s) PO daily 09/18/2016 Inactive Diflucan 150 mg tablet RxNorm: 206623 1 Tablet(s) PO daily 09/23/2016 Inactive amoxicillin 500 mg tablet RxNorm: 610798 1 Tablet(s) PO BID 09/25/2016 Inactive metoprolol succinate ER 50 mg tablet,extended release 24 hr RxNorm: 458292 Tablet (s) TAKE ONE TABLET BY MOUTH ONCE DAILY 08/11/2016 08/05/2017 Inactive Lipitor 20 mg tablet RxNorm: 160084 1 Tablet(s) PO QPM 201609/03/2017 Inactive Questran Light 4 gram oral powder RxNorm: 3495068 1 PO TID 05/25/2017 Inactive Trulicity 1.5 mg/0.5 mL subcutaneous pen injector RxNorm: 6543828 0.5 Milliliter(s ) SQ QW 08/11/2016 01/07/2017 Inactive levothyroxine 88 mcg tablet RxNorm: 259021 TAKE ONE TABLET BY MOUTH ONCE DAILY 07/28/2016 01/23/2017 Inactive Trulicity 0.75 mg/0.5 mL subcutaneous pen injector RxNorm: 5334950 INJECT THREE- FOURTHS MG(S) SUBCUTANEOUSLY ONCE A WEEK 07/01/2016 08/10/2016 Inactive metoprolol succinate ER 50 mg tablet,extended release 24 hr RxNorm: 953818 TAKE ONE TABLET BY MOUTH ONCE DAILY 06/11/2016 08/09/2016 Inactive citalopram 40 mg tablet RxNorm: 004225 TAKE ONE TABLET BY MOUTH ONCE DAILY 04/14/2016 05/12/2017 Inactive Diflucan 150 mg tablet RxNorm: 858308 1 Tablet(s) PO daily 01/24/2016 Inactive hydrochlorothiazide 25 mg tablet RxNorm: 061137 Tablet(s) 1 TABLET(S) PO DAILY 01/25/2016 01/18/2017 Inactive Diflucan 150 mg tablet RxNorm: 584308 1 Tablet(s) PO daily 01/31/2016 Inactive Zithromax Z-To 250 mg tablet RxNorm: 329146 1 Tablet(s) PO daily 01/24/2016 01/23/2016 Inactive zpack Zithromax Z-To 250 mg tablet RxNorm: 925129 1 Tablet(s) PO daily 01/24/2016 01/28/2016 Inactive zpack prednisone 10 mg tablets in a dose pack RxNorm: 255911 1 Tablet(s) PO as directed 01/24/2016 01/31/2016 Inactive 6-5-4-3-2-1 Kenalog 40 mg/mL suspension for injection RxNorm: 6205329 Milliliter(s) Inj 01/22/2016 01/22/2016 Inactive prednisone 20 mg tablet RxNorm: 557817 2 Tablet(s) PO daily 01/24/2016 Inactive start tomorrow Trulicity 0.75 mg/0.5 mL subcutaneous pen injector RxNorm: 3981000 0.75 Milligram( s) SQ QW 01/18/2016 06/30/2016 Inactive levothyroxine 88 mcg tablet RxNorm: 243428 TAKE ONE TABLET BY MOUTH ONCE DAILY 01/17/2016 07/14/2016 Inactive Trulicity 0.75 mg/0.5 mL subcutaneous pen injector RxNorm: 4720858 0.75 Milligram( s) SQ QW 12/03/2015 01/01/2016 Inactive Vimovo 500 mg-20 mg tablet,immediate and delay release RxNorm: 818186 1 Tablet(s) PO BID 12/03/2015 03/30/2016 Inactive metoprolol succinate ER 50 mg tablet,extended release 24 hr RxNorm: 559571 1 Tablet(s) PO daily 10/23/2015 05/19/2016 Inactive Trulicity 0.75 mg/0.5 mL subcutaneous pen injector RxNorm: 2853346 0.75 Milligram( s) SQ QW 09/17/2015 10/16/2015 Inactive Victoza 3-To 0.6 mg/0.1 mL (18 mg/3 mL) subcutaneous pen injector RxNorm: 543278 1.8 MILLIGRAM(S) SQ DAILY 07/16/201509/15 Inactive this is just a correction of her current dosing - she does not need a refill levothyroxine 88 mcg tablet RxNorm: 477737 1 TABLET(S) PO DAILY 07/16/2015 01/11/2016 Inactive metoprolol succinate ER 50 mg tablet,extended release 24 hr RxNorm: 867579 1 Tablet(s) PO daily 05/29/2015 10/22/2015 Inactive levothyroxine 88 mcg tablet RxNorm: 208057 1 Tablet(s) PO daily 04/17/2015 07/15/2015 Inactive levothyroxine 88 mcg tablet RxNorm: 978658 1 Tablet(s) PO daily 04/17/2015 04/16/2015 Inactive citalopram 40 mg tablet RxNorm: 194996 1 Tablet(s) PO daily 04/13/2016 Inactive metoprolol tartrate 25 mg tablet RxNorm: 832365 1 Tablet(s) BID 01/17/2015 05/28/2015 Inactive hydrochlorothiazide 25 mg tablet RxNorm: 616002 1 TABLET(S) PO DAILY 01/01/2015 12/26/2015 Inactive Kenalog 40 mg/mL suspension for injection RxNorm: 4924170 Milliliter(s) Inj 11/23/2014 11/23/2014 Inactive Kenalog 40 mg/mL suspension for injection RxNorm: 2620735 60 Milliliter(s) Inj 11/22/2014 11/22/2014 Inactive Zyrtec 10 mg tablet RxNorm: 8587552 1 Tablet(s) PO daily 11/2212/21/2014 Inactive prednisone 10 mg tablets in a dose pack RxNorm: 477105 1 Tablet(s) PO as directed 11/22/2014 05/28/2015 Inactive 6-5-4-3-2-1 Flagyl 500 mg tablet RxNorm: 694235 1 Tablet(s) PO TID 201411/20/2014 Inactive metoprolol tartrate 25 mg tablet RxNorm: 435074 1 Tablet(s) PO BID 09/06/2014 08/10/2016 Inactive metoprolol tartrate 25 mg tablet RxNorm: 173714 1 TABLET(S) PO BID PT TO START WITH 1/2 PILL TWICE DAILY X 1 WEEK, THEN INCREASE TO 1 PILL BID THEREAFTER 09/06/2014 01/16/2015 Inactive citalopram 20 mg tablet RxNorm: 095727 1 Tablet(s) PO daily 02/201503/13/2015 Inactive Victoza 3-To 0.6 mg/0.1 mL (18 mg/3 mL) subcutaneous pen injector RxNorm: 503264 1.8 MILLIGRAM(S) SQ DAILY 09/04/201405/31 Inactive this is just a correction of her current dosing - she does not need a refill metoprolol tartrate 25 mg tablet RxNorm: 849924 1 Tablet(s) PO BID pt to start with 1/2 pill twice daily x 1 week, then increase to 1 pill bid thereafter 08/04/2014 09/02/2014 Inactive Lantus Solostar 100 unit/mL (3 mL) subcutaneous insulin pen RxNorm: 021482 Unit( s) INJECT 10 UNITS SUBCUTANEOUSLY DAILY. DOCTOR WILL ADJUST MEDICATION BASED ON BLOOD GLUCOSE LEVELS 08/04/20142014 Inactive hydrochlorothiazide 25 mg tablet RxNorm: 564617 1 TABLET(S) PO DAILY 07/12/2014 01/24/2016 Inactive hydrochlorothiazide 25 mg tablet RxNorm: 709117 1 Tablet(s) PO daily 07/12/2014 12/31/2014 Inactive acyclovir 400 mg tablet RxNorm: 696856 1 Tablet(s) PO QID 05/0905/08/2014 Inactive acyclovir 400 mg tablet RxNorm: 940477 1 Tablet(s) PO QID 05/0905/15/2014 Inactive alprazolam 0.25 mg tablet RxNorm: 255716 TAKE 1 TABLET BY MOUTH TWICE DAILY NEEDED FOR ANXIETY 04/24/2014 05/23/2014 Inactive (Response to an electronic controlled substance refill request - RxReferenceNumber: [id number]|0|1) metoprolol succinate ER 100 mg tablet,extended release 24 hr RxNorm: 315468 1 TABLET(S) PO DAILY TAKE 1 TABLET BY MOUTH DAILY 04/24/2014 08/03/2014 Inactive Cardizem LA 360 mg tablet,extended release RxNorm: 503460 1 TABLET(S) PO DAILY TAKE 1 TABLET BY MOUTH DAILY 04/24/2014 Inactive metformin ER 500 mg 24 hr tablet,extended release RxNorm: 303587 1 Tablet(s) PO daily 04/11/2014 08/03/2014 Inactive Lantus Solostar 100 unit/mL (3 mL) subcutaneous insulin pen RxNorm: 997644 INJECT 40 UNITS SUBCUTANEOUSLY DAILY. DOCTOR WILL ADJUST MEDICATION BASED ON BLOOD GLUCOSE LEVELS 03/20/20142014 Inactive Bentyl 10 mg capsule RxNorm: 798256 1 Capsule(s) PO TID PRN 02/201405/28/2015 Inactive potassium chloride ER 10 mEq tablet,extended release RxNorm: 395597 1 Tablet(s) PO daily 01/05/2014 01/11/2014 Inactive Lantus Solostar 100 unit/mL (3 mL) subcutaneous insulin pen RxNorm: 454311 45 Unit(s) SQ daily doctor to adjust medications based on blood glucose results 01/05/2014 12/02/2015 Inactive Diovan 320 mg tablet RxNorm: 453939 1 Tablet(s) PO daily 201308/03/2014 Inactive metformin ER 1,000 mg tablet,extended release 24hr RxNorm: 027941 1 Tablet(s) PO daily 10/26/2013 04/10/2014 Inactive Lantus Solostar 100 unit/mL (3 mL) subcutaneous insulin pen RxNorm: 151634 40 Unit(s) SQ daily doctor to adjust medications based on blood glucose results 10/10/2013 01/04/2014 Inactive alprazolam 0.25 mg tablet RxNorm: 460288 1 Tablet(s) PO BID 04/24/2014 Inactive Percocet 5 mg-325 mg tablet RxNorm: 5979084 1-2 Tablet(s) PO Q6 PRN 10/03/2013 05/28/2015 Inactive Celexa 40 mg tablet RxNorm: 370195 Tablet(s) PO TAKE 1 TABLET BY MOUTH DAILY 09/28/2013 09/03/2014 Inactive hydrochlorothiazide 25 mg tablet RxNorm: 840619 1 Tablet(s) PO daily 09/22/2013 06/18/2014 Inactive Lantus Solostar 100 unit/mL (3 mL) subcutaneous insulin pen RxNorm: 362048 35 Unit(s) SQ daily doctor to adjust medications based on blood glucose results 08/02/2013 10/09/2013 Inactive Cardizem LA 360 mg tablet,extended release RxNorm: 257628 1 Tablet(s) PO daily TAKE 1 TABLET BY MOUTH DAILY 07/18/2013 Inactive Cardizem LA 360 mg tablet,extended release RxNorm: 885724 Tablet(s) PO TAKE 1 TABLET BY MOUTH DAILY 07/18/20132014 Inactive metoprolol succinate ER 100 mg tablet,extended release 24 hr RxNorm: 104395 1 Tablet(s) PO daily TAKE 1 TABLET BY MOUTH DAILY 07/18/2013 04/13/2014 Inactive metoprolol succinate ER 100 mg tablet,extended release 24 hr RxNorm: 739152 Tablet (s) PO TAKE 1 TABLET BY MOUTH DAILY 07/18/2013 08/03/2014 Inactive Lantus Solostar 100 unit/mL (3 mL) subcutaneous insulin pen RxNorm: 901103 30 Unit(s) SQ daily doctor to adjust medications based on blood glucose results 07/04/2013 08/01/2013 Inactive Victoza 3-To 0.6 mg/0.1 mL (18 mg/3 mL) subcutaneous pen injector RxNorm: 344714 1.8 Milligram(s) SQ daily 06/30/201303/26 Inactive this is just a correction of her current dosing - she does not need a refill metformin ER 1,000 mg tablet,extended release 24hr RxNorm: 680382 1 Tablet(s) PO daily 06/30/2013 10/25/2013 Inactive Lantus Solostar 100 unit/mL (3 mL) subcutaneous insulin pen RxNorm: 218676 20 Unit(s) SQ daily doctor to adjust medications based on blood glucose results 06/30/2013 07/03/2013 Inactive Lantus Solostar 100 unit/mL (3 mL) subcutaneous insulin pen RxNorm: 590056 15 Unit(s) SQ daily doctor to adjust medications based on blood glucose results 06/23/2013 06/29/2013 Inactive Victoza 3-To 0.6 mg/0.1 mL (18 mg/3 mL) subcutaneous pen injector RxNorm: 500002 3mg Milliliter(s) SQ daily 90 days worth 06/20/2013 06/29/2013 Inactive hydrochlorothiazide 25 mg tablet RxNorm: 856970 1 Tablet(s) PO daily 06/13/2013 09/21/2013 Inactive ketorolac 60 mg/2 mL intramuscular solution RxNorm: 016491 2 Milliliter(s) IM 06/06/2013 06/06/2013 Inactive Lantus Solostar 100 unit/mL (3 mL) subcutaneous insulin pen RxNorm: 417987 10 Unit(s) SQ daily doctor to adjust medications based on blood glucose results 06/06/2013 06/22/2013 Inactive naproxen 500 mg tablet RxNorm: 358830 1 Tablet(s) PO BID 201308/04/2013 Inactive hydrochlorothiazide 25 mg tablet RxNorm: 249723 1 Tablet(s) PO daily 06/06/2013 06/12/2013 Inactive Victoza 3-To 0.6 mg/0.1 mL (18 mg/3 mL) subcutaneous pen injector RxNorm: 010900 3mg Milliliter(s) SQ daily 90 days worth 05/19/2013 06/19/2013 Inactive Diflucan 150 mg tablet RxNorm: 201733 1 Tablet(s) PO daily 05/12/2013 Inactive Diflucan 150 mg tablet RxNorm: 107723 1 Tablet(s) PO daily 05/19/2013 Inactive Cardizem LA 360 mg tablet,extended release RxNorm: 726753 Tablet(s) PO TAKE 1 TABLET BY MOUTH DAILY 04/22/20132013 Inactive metoprolol succinate ER 100 mg tablet,extended release 24 hr RxNorm: 866311 Tablet (s) PO TAKE 1 TABLET BY MOUTH DAILY 04/14/2013 07/17/2013 Inactive Diflucan 150 mg tablet RxNorm: 269324 1 Tablet(s) PO daily 03/28/2013 Inactive Diflucan 150 mg tablet RxNorm: 152452 1 Tablet(s) PO daily 03/21/2013 Inactive Diovan 320 mg tablet RxNorm: 065493 1 Tablet(s) PO daily 201212/09/2013 Inactive cefdinir 300 mg capsule RxNorm: 120214 1 Capsule(s) PO BID 02/25/2013 Inactive Phenergan with Codeine Syrup RxNorm: 5-10 Milliliter(s) PO Q6 PRN USE PRN FOR COUGH 02/21/2013 03/20/2013 Inactive 8 OUNCES Victoza 3-To 0.6 mg/0.1 mL (18 mg/3 mL) subcutaneous pen injector RxNorm: 632851 3mg Milliliter(s) SQ daily 90 days worth 12/09/2012 03/08/2013 Inactive scopolamine 1.5 mg transdermal 72 hour patch RxNorm: 934847 1 Patch TD Q72H 10/26/2012 01/04/2014 Inactive scopolamine 1.5 mg 72 hr Transderm Patch RxNorm: 237444 1 Patch TD Q72H 10/26/2012 10/25/2012 Inactive metformin ER 1,000 mg tablet,extended release 24hr RxNorm: 717683 1 Tablet(s) PO BID 10/11/2012 06/29/2013 Inactive Victoza 3-To 0.6 mg/0.1 mL (18 mg/3 mL) Sub-Q Pen Injector RxNorm: 516081 1.8 Milliliter(s) SQ daily 1.8 mg dose daily 09/23/2012 12/08/2012 Inactive Victoza 3-To 0.6 mg/0.1 mL (18 mg/3 mL) Sub-Q Pen Injector RxNorm: 187935 3.0 Milliliter(s) SQ daily 1.2 + 1.8 mg dose daily 201209/22/2012 Inactive Celexa 40 mg tablet RxNorm: 207840 1 Tablet(s) PO daily TAKE ONE TABLET BY MOUTH DAILY 09/21/2012 05/18/2013 Inactive Cardizem LA 360 mg tablet,extended release RxNorm: 065128 1 Tablet(s) PO daily 07/20/2012 04/15/2013 Inactive metoprolol succinate ER 100 mg tablet,extended release 24 hr RxNorm: 939748 1 Tablet(s) PO daily 07/20/2012 04/13/2013 Inactive Byetta 10 mcg/0.04 mL per dose Sub-Q Pen Injector RxNorm: 844192 1 Milliliter(s) SQ BID 06/18/2012 09/22/2012 Inactive Diovan 320 mg tablet RxNorm: 337321 1 Tablet(s) PO daily 201203/14/2013 Inactive metformin ER 1,000 mg tablet,extended release 24hr RxNorm: 634927 1 Tablet(s) PO BID 06/14/2012 09/11/2012 Inactive metformin ER 1,000 mg tablet,extended release 24hr RxNorm: 717421 1 Tablet(s) PO 06/14/2012 06/13/2012 Inactive Livalo 4 mg tablet RxNorm: 944518 1 Tablet(s) PO daily 201201/04/2014 Inactive Celexa 40 mg tablet RxNorm: 868103 1 Tablet(s) PO daily 201209/21/2012 Inactive Accu-Chek Instant Glucose Test Strips RxNorm: 1 Miscellaneous daily accucheck ratna glucometer 05/21/2012 06/14/2013 Inactive Diflucan 150 mg tablet RxNorm: 272226 1 Tablet(s) PO daily 05/26/2012 Inactive Flagyl 500 mg tablet RxNorm: 274564 1 Tablet(s) PO TID 201205/27/2012 Inactive aspirin 81 mg tablet RxNorm: 351105 1 Tablet(s) PO daily No Start Date Active Cardizem LA 360 mg tablet,extended release RxNorm: 091303 1 Tablet(s) PO daily No Start Date 07/19/2012 Inactive metformin ER 750 mg tablet,extended release 24 hr RxNorm: 869848 1 Tablet(s) PO TID No Start Date 06/13/2012 Inactive Zithromax Z-To 250 mg tablet RxNorm: 239815 Tablet(s) PO No Start Date 06/13/2012 Inactive Diovan 320 mg tablet RxNorm: 525525 1 Tablet(s) PO daily No Start Date 06/17/2012 Inactive Byetta 10 mcg/0.04 mL per dose Sub-Q Pen Injector RxNorm: 096426 1 Milliliter(s) SQ BID No Start Date 06/17/2012 Inactive Vivelle 0.05 mg/24 hr Transderm Patch RxNorm: 856306 1 Patch TD [id number] No Start Date 12/03/2015 Inactive Minivelle 0.0375 mg/24 hr transdermal patch RxNorm: 9427656 1 Patch TD BIW No Start Date 03/15/2018 Inactive Fish Oil 1,000 mg capsule RxNorm: 1 Capsule(s) PO BID No Start Date 05/29/2015 Inactive Celexa 40 mg tablet RxNorm: 202532 1 Tablet(s) PO daily No Start Date 06/09/2012 Inactive levothyroxine 100 mcg tablet RxNorm: 393328 1 Tablet(s) PO daily No Start Date 04/16/2015 Inactive Fish Oil 1,000 mg capsule RxNorm: 1 Capsule(s) PO daily No Start Date 12/02/2015 Inactive Vitamin B-12 1,000 mcg/mL oral drops RxNorm: 2774208 1 Milliliter(s) PO daily No Start Date 12/02/2015 Inactive metoprolol succinate ER 100 mg tablet,extended release 24 hr RxNorm: 791152 1 Tablet(s) PO daily No Start Date 2012 Inactive promethazine-codeine 6.25 mg-10 mg/5 mL Syrup RxNorm: 383016 5-10 Milliliter(s) PO Q6 PRN No Start Date 12/12/2012 Inactive Percocet 5 mg-325 mg tablet RxNorm: 5652787 1-2 Tablet(s) PO Q6 PRN No Start Date 10/02/2013 Inactive hydrochlorothiazide 25 mg tablet RxNorm: 577190 1 Tablet(s) PO daily No Start Date 06/05/2013 Inactive Victoza 2-Ot 0.6 mg/0.1 mL (18 mg/3 mL) subcutaneous pen injector RxNorm: 724189 Milligram(s) SQ 1.8mg daily No Start Date 09/13/2013 Inactive Livalo 4 mg tablet RxNorm: 712921 1 Tablet(s) PO daily No Start Date 06/09/2012 Inactive Medication Administered Medication Codes Instructions Start Date Status Kenalog 40 mg/mL suspension for injection RxNorm: 9334613 Milliliter 02/22/2018 No longer Active Kenalog 40 mg/mL suspension for injection RxNorm: 9887265 Milliliter 01/22/2016 No longer Active Kenalog 40 mg/mL suspension for injection RxNorm: 1697158 Milliliter 11/23/2014 No longer Active Kenalog 40 mg/mL suspension for injection RxNorm: 5223059 Milliliter 11/22/2014 No longer Active ketorolac 60 mg/2 mL intramuscular solution RxNorm: 548368 2Milliliter 06/06/2013 No longer Active Immunizations Vaccine Codes Date Status Influenza CVX: 141 01/07/2018 completed Influenza CVX: 141 01/05/2014 completed Influenza CVX: 141 04/22/2013 completed Influenza CVX: 141 02/04/2012 completed Assessments Condition Codes Effective Dates Pseudobulbar affect ICD-10: F48.2 ICD-9: 310.81 06/02/2018 Generalized anxiety disorder ICD-10: F41.1 ICD-9: 300.02 06/02/2018 Other abnormalities of gait and mobility ICD-10: R26.89 ICD-9: 781.2 06/02/2018 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 ICD-9: 434.01 06/02/2018 Type 2 diabetes mellitus without complications ICD-10: E11.9 ICD-9: 250.00 04/28/2018 Essential (primary) hypertension ICD-10: I10 ICD-9: 401.1 04/28/2018 Other specified symptoms and signs involving the circulatory and respiratory systems ICD-10: R09.89 ICD-9: 785.9 04/28/2018 Type 2 diabetes mellitus with hyperglycemia ICD-10: E11.65 ICD-9: 250.02 03/29/2018 Other allergic rhinitis ICD-10: J30.89 ICD-9: [...] For Visit Effective Dates Notes diabetes mellitus 06/02/2018 diabetes mellitus 04/28/2018 Hospital [...] 29.5 pg 01/05/2018 Cbc With Differential Ord2 [place]% 5.5 % 01/05/2018 Cbc With Differential Ord2 Eos% 1.5 % 01/05/2018 Cbc With Differential Ord2 MCHC 33.5 pg 01/05/2018 Cbc With Differential Ord2 Baso% 0.5 % 01/05/2018 Cbc With Differential Ord2 PLT 314 K/ul 01/05/2018 Cbc With Differential Ord2 Neut ABS# 7.57 K/ul 01/05/2018 Cbc With Differential Ord2 RDW 12.6 % 01/05/2018 Cbc With Differential Ord2 Lymph ABS# 1.46 K/ul 01/05/2018 Cbc With Differential Ord2 [place] ABS# 0.5 K/ul 01/05/2018 Cbc With Differential Ord2 Eos ABS# 0.2 K/ul 01/05/2018 Cbc With Differential Ord2 Baso ABS# 0.1 K/ul 01/05/2018 Free T4 Znr933 FREE T4 0.92 ng/dL 01/05/2018 Lipid Ord30 CHOL 200 mg/dL 01/05/2018 Lipid Ord30 HDL 48.0 mg/dl 01/05/2018 Lipid Ord30 TRIG 143 mg/dL 01/05/2018 Lipid Ord30 LDL 123 mg/dL 01/05/2018 Lipid Ord30 C/HDL 4.2 Ratio 01/05/2018 Comp Metabolic Tbm049 NA 142 mEq/L 01/05/2018 Comp Metabolic Sos369 K 3.9 mEq/L 01/05/2018 Comp Metabolic Ujb785 CL 99 mEq/L 01/05/2018 Comp Metabolic Ixe434 CO2 34.0 mEq/L 01/05/2018 Comp Metabolic Qsl787 ANION GAP 13 01/05/2018 Comp Metabolic Ouv963 GLUCOSE 205 mg/dL 01/05/2018 Comp Metabolic Jbz383 Creat 1.0 mg/dL 01/05/2018 Comp Metabolic Wwu148 eGFR 65 ml/min/1.73m2 01/05/2018 Comp Metabolic Lln326 BUN 12 mg/dL 01/05/2018 Comp Metabolic Mab566 B/C Ratio 12.6 Ratio 01/05/2018 Comp Metabolic Pon728 CALCIUM 9.5 mg/dL 01/05/2018 Comp Metabolic Eeq609 ALK PHOS 150 U/L 01/05/2018 Comp Metabolic Frx903 AST(SGOT) 16 U/L 01/05/2018 Comp Metabolic Snc749 ALT(SGPT) 15 U/L 01/05/2018 Comp Metabolic Nbx302 BILI T 0.6 mg/dL 01/05/2018 Comp Metabolic Hix331 ALBUMIN 3.9 g/dL 01/05/2018 Comp Metabolic Hdn822 TPRO 6.6 g/dL 01/05/2018 Comp Metabolic Utk912 GLOB 2.7 g/dL 01/05/2018 Comp Metabolic Ihz297 A/G Ratio 1.5 Ratio 01/05/2018 Comp Metabolic Zbk207 Osmo 289 mOsmo 01/05/2018 %Hba1C Xzf022 % HbA1c 84899-4 10.9 % 01/05/2018 %Hba1C Jlm543 Gluc Ave 266 mg/dL 01/05/2018 Lipid Ord30 [...] 89.6 fl 09/29/2017 Cbc With Differential Ord2 [place]% 5.5 % 09/29/2017 Cbc With Differential Ord2 [...] 1.39 K/ul 09/29/2017 Cbc With Differential Ord2 [place] ABS# 0.6 K/ul 09/29/2017 Cbc With Differential Ord2 Eos ABS# 0.1 K/ul 09/29/2017 Cbc With Differential Ord2 Baso ABS# 0.1 K/ul 09/29/2017 Comp Metabolic Pzz835 NA 140 mEq/L 09/29/2017 Comp Metabolic Yum971 K 3.4 mEq/L 09/29/2017 Comp Metabolic Ibt955 CL 96 mEq/L 09/29/2017 Comp Metabolic Hmz012 CO2 33.0 mEq/L 09/29/2017 Comp Metabolic Uzu768 ANION GAP 14 09/29/2017 Comp Metabolic Seg555 GLUCOSE 287 mg/dL 09/29/2017 Comp Metabolic Lpr537 Creat 0.8 mg/dL 09/29/2017 Comp Metabolic Fev609 eGFR 77 ml/min/1.73m2 09/29/2017 Comp Metabolic Xni769 BUN 13 mg/dL 09/29/2017 Comp Metabolic Bdp409 B/C Ratio 15.9 Ratio 09/29/2017 Comp Metabolic Rgl758 CALCIUM 9.4 mg/dL 09/29/2017 Comp Metabolic Ivf931 ALK PHOS 147 U/L 09/29/2017 Comp Metabolic Dpl092 AST(SGOT) 17 U/L 09/29/2017 Comp Metabolic Djc648 ALT(SGPT) 25 U/L 09/29/2017 Comp Metabolic Kxc089 BILI T 0.7 mg/dL 09/29/2017 Comp Metabolic Wpb998 ALBUMIN 4.2 g/dL 09/29/2017 Comp Metabolic Yni094 TPRO 6.8 g/dL 09/29/2017 Comp Metabolic Axx316 GLOB 2.6 g/dL 09/29/2017 Comp Metabolic Wlh358 A/G Ratio 1.6 Ratio 09/29/2017 Comp Metabolic Int902 Osmo 290 mOsmo 09/29/2017 %Hba1C Jol877 % HbA1c 74405-2 11.4 % 09/29/2017 %Hba1C Zpq233 Gluc Ave 280 mg/dL 09/29/2017 Free T4 Dsc074 FREE T4 1.14 ng/dL 09/29/2017 Tsh Ord6 TSH (3rd IS) 2.91 uIU/mL 09/29/2017 Lipid Ord30 CHOL 182 mg/dL 06/02/2017 Lipid Ord30 HDL 57.0 mg/dl 06/02/2017 Lipid Ord30 TRIG 126 mg/dL 06/02/2017 Lipid Ord30 LDL 100 mg/dL 06/02/2017 Lipid Ord30 C/HDL 3.2 Ratio 06/02/2017 %Hba1C Hda536 % HbA1c 27959-7 8.2 % 06/02/2017 %Hba1C Rsg910 Gluc Ave 189 mg/dL 06/02/2017 Comp Metabolic Mbf049 NA 143 mEq/L 11/12/2016 Comp Metabolic Fyj910 K 3.3 mEq/L 11/12/2016 Comp Metabolic Xwu986 CL 102 mEq/L 11/12/2016 Comp Metabolic Lfb750 CO2 30.0 mEq/L 11/12/2016 Comp Metabolic Ncg769 ANION GAP 14 11/12/2016 Comp Metabolic Dxg407 GLUCOSE 141 mg/dL 11/12/2016 Comp Metabolic Koy022 Creat 0.8 mg/dL 11/12/2016 Comp Metabolic Tnc623 eGFR 76 ml/min/1.73m2 11/12/2016 Comp Metabolic Syl993 BUN 11 mg/dL 11/12/2016 Comp Metabolic Wjh140 B/C Ratio 13.3 Ratio 11/12/2016 Comp Metabolic Vwu915 CALCIUM 9.2 mg/dL 11/12/2016 Comp Metabolic Zya600 ALK PHOS 116 U/L 11/12/2016 Comp Metabolic Ccd489 AST(SGOT) 21 U/L 11/12/2016 Comp Metabolic Fjh345 ALT(SGPT) 28 U/L 11/12/2016 Comp Metabolic Kep172 BILI T 0.5 mg/dL 11/12/2016 Comp Metabolic Gtq445 ALBUMIN 3.8 g/dL 11/12/2016 Comp Metabolic Hip606 TPRO 6.4 g/dL 11/12/2016 Comp Metabolic Ydy006 GLOB 2.6 g/dL 11/12/2016 Comp Metabolic Ipp109 A/G Ratio 1.5 Ratio 11/12/2016 Comp Metabolic Hog973 Osmo 287 mOsmo 11/12/2016 Lipid Ord30 CHOL [...] 16.9 % 11/12/2016 Cbc With Differential Ord2 [place]% 5.8 % 11/12/2016 Cbc With Differential Ord2 [...] 1.47 K/ul 11/12/2016 Cbc With Differential Ord2 [place] ABS# 0.5 K/ul 11/12/2016 Cbc With Differential Ord2 Eos ABS# 0.2 K/ul 11/12/2016 Cbc With Differential Ord2 Baso ABS# 0.0 K/ul 11/12/2016 Tsh Ord6 hTSH II 1.59 uIU/mL 11/12/2016 %Hba1C Vsk967 % HbA1c 23915-5 7.5 % 11/12/2016 %Hba1C Gev553 Gluc Ave 169 mg/dL 11/12/2016 Free T4 Juu511 FREE T4 0.91 ng/dL 11/12/2016 Cbc With [...] 29.7 pg 07/04/2016 Cbc With Differential Ord2 [place]% 7.1 % 07/04/2016 Cbc With Differential Ord2 [...] 1.10 K/ul 07/04/2016 Cbc With Differential Ord2 [place] ABS# 0.6 K/ul 07/04/2016 Cbc With Differential Ord2 Eos ABS# 0.1 K/ul 07/04/2016 Cbc With Differential Ord2 Baso ABS# 0.1 K/ul 07/04/2016 Lipid Ord30 CHOL 282 mg/dL 07/04/2016 Lipid Ord30 HDL 53.0 mg/dl 07/04/2016 Lipid Ord30 TRIG 136 mg/dL 07/04/2016 Lipid Ord30 LDL 202 mg/dL 07/04/2016 Lipid Ord30 C/HDL 5.3 Ratio 07/04/2016 Tsh Ord6 hTSH II 1.21 uIU/mL 07/04/2016 %Hba1C Nbz857 % HbA1c 41388-0 7.1 % 07/04/2016 %Hba1C Vcy225 Gluc Ave 157 mg/dL 07/04/2016 Comp Metabolic Tsk127 NA 141 mEq/L 07/04/2016 Comp Metabolic Hox045 K 3.5 mEq/L 07/04/2016 Comp Metabolic Xoh404 CL 100 mEq/L 07/04/2016 Comp Metabolic Pjy064 CO2 34.0 mEq/L 07/04/2016 Comp Metabolic Nbc198 ANION GAP 11 07/04/2016 Comp Metabolic Mqr864 GLUCOSE 144 mg/dL 07/04/2016 Comp Metabolic Eyz479 Creat 0.8 mg/dL 07/04/2016 Comp Metabolic Nqy943 eGFR 75 ml/min/1.73m2 07/04/2016 Comp Metabolic Yfs488 BUN 10 mg/dL 07/04/2016 Comp Metabolic Cqa603 B/C Ratio 11.9 Ratio 07/04/2016 Comp Metabolic Lsv454 CALCIUM 9.4 mg/dL 07/04/2016 Comp Metabolic Oor574 ALK PHOS 116 U/L 07/04/2016 Comp Metabolic Odc764 AST(SGOT) 16 U/L 07/04/2016 Comp Metabolic Nyf863 ALT(SGPT) 17 U/L 07/04/2016 Comp Metabolic Ohi339 BILI T 0.6 mg/dL 07/04/2016 Comp Metabolic Arf341 ALBUMIN 4.3 g/dL 07/04/2016 Comp Metabolic Eqo980 TPRO 7.0 g/dL 07/04/2016 Comp Metabolic Vvl873 GLOB 2.7 g/dL 07/04/2016 Comp Metabolic Fes008 A/G Ratio 1.6 Ratio 07/04/2016 Comp Metabolic Hhm746 Osmo 283 mOsmo 07/04/2016 Free T4 Qmf043 FREE T4 0.87 ng/dL 07/04/2016 Cbc With [...] 29.9 pg 03/31/2016 Cbc With Differential Ord2 [place]% 6.5 % 03/31/2016 Cbc With Differential Ord2 [...] 1.22 K/ul 03/31/2016 Cbc With Differential Ord2 [place] ABS# 0.4 K/ul 03/31/2016 Cbc With Differential Ord2 Eos ABS# 0.1 K/ul 03/31/2016 Cbc With Differential Ord2 Baso ABS# 0.0 K/ul 03/31/2016 Comp Metabolic Jby285 NA 137 mEq/L 03/31/2016 Comp Metabolic Fqm788 K 3.3 mEq/L 03/31/2016 Comp Metabolic Utd993 CL 101 mEq/L 03/31/2016 Comp Metabolic Pli957 CO2 26.0 mEq/L 03/31/2016 Comp Metabolic Fxp505 ANION GAP 13 03/31/2016 Comp Metabolic Udp140 GLUCOSE 150 mg/dL 03/31/2016 Comp Metabolic Smr963 Creat 0.9 mg/dL 03/31/2016 Comp Metabolic Yef211 eGFR 71 ml/min/1.73m2 03/31/2016 Comp Metabolic Wtm699 BUN 13 mg/dL 03/31/2016 Comp Metabolic Tzq563 B/C Ratio 14.8 Ratio 03/31/2016 Comp Metabolic Ams141 CALCIUM 8.8 mg/dL 03/31/2016 Comp Metabolic Csb233 ALK PHOS 103 U/L 03/31/2016 Comp Metabolic Jcu756 AST(SGOT) 18 U/L 03/31/2016 Comp Metabolic Kwx176 ALT(SGPT) 21 U/L 03/31/2016 Comp Metabolic Avw266 BILI T 0.4 mg/dL 03/31/2016 Comp Metabolic Wkr200 ALBUMIN 3.9 g/dL 03/31/2016 Comp Metabolic Vbs805 TPRO 6.5 g/dL 03/31/2016 Comp Metabolic Bea491 GLOB 2.6 g/dL 03/31/2016 Comp Metabolic Saa415 A/G Ratio 1.5 Ratio 03/31/2016 Comp Metabolic Sby285 Osmo 277 mOsmo 03/31/2016 Cbc With Differential [...] 30.4 pg 02/12/2016 Cbc With Differential Ord2 [place]% 7.0 % 02/12/2016 Cbc With Differential Ord2 [...] 2.42 K/ul 02/12/2016 Cbc With Differential Ord2 [place] ABS# 0.7 K/ul 02/12/2016 Cbc With Differential Ord2 Eos ABS# 0.2 K/ul 02/12/2016 Cbc With Differential Ord2 Baso ABS# 0.1 K/ul 02/12/2016 Comp Metabolic Cwe029 NA 138 mEq/L 02/01/2016 Comp Metabolic Oik432 K 4.3 mEq/L 02/01/2016 Comp Metabolic Syw434 CL 101 mEq/L 02/01/2016 Comp Metabolic Mvr637 CO2 27.0 mEq/L 02/01/2016 Comp Metabolic Kxa242 ANION GAP 14 02/01/2016 Comp Metabolic Ghk127 GLUCOSE 127 mg/dL 02/01/2016 Comp Metabolic Ljf583 Creat 1.0 mg/dL 02/01/2016 Comp Metabolic Utj269 eGFR 61 ml/min/1.73m2 02/01/2016 Comp Metabolic Qfp029 BUN 21 mg/dL 02/01/2016 Comp Metabolic Sso930 B/C Ratio 20.8 Ratio 02/01/2016 Comp Metabolic Bhb306 CALCIUM 9.1 mg/dL 02/01/2016 Comp Metabolic Zon456 ALK PHOS 105 U/L 02/01/2016 Comp Metabolic Pfx611 AST(SGOT) 14 U/L 02/01/2016 Comp Metabolic Cim074 ALT(SGPT) 26 U/L 02/01/2016 Comp Metabolic Xow905 BILI T 0.4 mg/dL 02/01/2016 Comp Metabolic Fpx966 ALBUMIN 3.9 g/dL 02/01/2016 Comp Metabolic Nvh511 TPRO 6.7 g/dL 02/01/2016 Comp Metabolic Eya172 GLOB 2.8 g/dL 02/01/2016 Comp Metabolic Uta463 A/G Ratio 1.4 Ratio 02/01/2016 Comp Metabolic Adb665 Osmo 280 mOsmo 02/01/2016 Tsh Ord6 hTSH [...] 91.5 fl 02/01/2016 Cbc With Differential Ord2 [place]% 5.8 % 02/01/2016 Cbc With Differential Ord2 [...] 3.74 K/ul 02/01/2016 Cbc With Differential Ord2 [place] ABS# 0.8 K/ul 02/01/2016 Cbc With Differential Ord2 Eos ABS# 0.2 K/ul 02/01/2016 Cbc With Differential Ord2 Baso ABS# 0.0 K/ul 02/01/2016 %Hba1C Dwm676 % HbA1c 19885-5 6.9 % 01/07/2016 %Hba1C Krf543 Gluc Ave 151 mg/dL 01/07/2016 Tsh Ord6 hTSH II 0.99 uIU/mL 11/08/2015 Free T4 Aah060 FREE T4 1.01 ng/dL 11/08/2015 %Hba1C Xmr633 % HbA1c 56651-4 6.6 % 09/14/2015 %Hba1C Zld748 Gluc Ave 143 mg/dL 09/14/2015 Lipid Ord30 [...] 29.9 pg 09/12/2015 Cbc With Differential Ord2 [place]% 5.9 % 09/12/2015 Cbc With Differential Ord2 [...] 1.48 K/ul 09/12/2015 Cbc With Differential Ord2 [place] ABS# 0.4 K/ul 09/12/2015 Cbc With Differential Ord2 Eos ABS# 0.1 K/ul 09/12/2015 Cbc With Differential Ord2 Baso ABS# 0.0 K/ul 09/12/2015 Cbc With Differential Ord2 New Analyzer Notice Please note new ref ranges starting 05-09-2015 due to implemntation of new five part differential hematolgy analyzer. 09/12/2015 Comp Metabolic Dzt403 NA 139 mEq/L 09/12/2015 Comp Metabolic Gvj027 K 3.7 mEq/L 09/12/2015 Comp Metabolic Vzr098 CL 102 mEq/L 09/12/2015 Comp Metabolic Oph709 CO2 30.0 mEq/L 09/12/2015 Comp Metabolic Bpg903 ANION GAP 11 09/12/2015 Comp Metabolic Xwc737 GLUCOSE 135 mg/dL 09/12/2015 Comp Metabolic Mgl856 Creat 0.8 mg/dL 09/12/2015 Comp Metabolic Ofz704 eGFR 86 ml/min/1.73m2 09/12/2015 Comp Metabolic Ofm870 BUN 10 mg/dL 09/12/2015 Comp Metabolic Obf181 B/C Ratio 13.3 Ratio 09/12/2015 Comp Metabolic Pro266 CALCIUM 8.8 mg/dL 09/12/2015 Comp Metabolic Cnl708 ALK PHOS 95 U/L 09/12/2015 Comp Metabolic Xmf319 AST(SGOT) 18 U/L 09/12/2015 Comp Metabolic Yka240 ALT(SGPT) 20 U/L 09/12/2015 Comp Metabolic Ykq152 BILI T 0.5 mg/dL 09/12/2015 Comp Metabolic Bsg684 ALBUMIN 3.9 g/dL 09/12/2015 Comp Metabolic Xci359 TPRO 6.5 g/dL 09/12/2015 Comp Metabolic Ibr986 GLOB 2.6 g/dL 09/12/2015 Comp Metabolic Vqd326 A/G Ratio 1.5 Ratio 09/12/2015 Comp Metabolic Dyq383 Osmo 279 mOsmo 09/12/2015 Tsh Ord6 hTSH II 0.81 uIU/mL 08/01/2015 Free T4 Wny092 FREE T4 0.82 ng/dL 08/01/2015 Vitamin B12 695592 VITAMIN B12 TEST NOT PERFORMED pg/mL 2015 Vitamin D 25 Oh Lox8913 VITAMIN D, 25 HYDROXY 50.78 ng/mL Comp Metabolic Chp663 NA 142 mEq/L 04/12/2015 Comp Metabolic Oph402 K 3.5 mEq/L 04/12/2015 Comp Metabolic Ktr586 CL 102 mEq/L 04/12/2015 Comp Metabolic Buc474 CO2 32.0 mEq/L 04/12/2015 Comp Metabolic Scg656 ANION GAP 12 04/12/2015 Comp Metabolic Dmd984 GLUCOSE 130 mg/dL 04/12/2015 Comp Metabolic Wnq813 Creat 0.8 mg/dL 04/12/2015 Comp Metabolic Eus879 eGFR 78 ml/min/1.73m2 04/12/2015 Comp Metabolic Qfp766 BUN 12 mg/dL 04/12/2015 Comp Metabolic Leo511 B/C Ratio 14.6 Ratio 04/12/2015 Comp Metabolic Ers330 CALCIUM 8.9 mg/dL 04/12/2015 Comp Metabolic Mzt361 ALK PHOS 95 U/L 04/12/2015 Comp Metabolic Wha192 AST(SGOT) 21 U/L 04/12/2015 Comp Metabolic Gjw168 ALT(SGPT) 23 U/L 04/12/2015 Comp Metabolic Cva536 BILI T 0.4 mg/dL 04/12/2015 Comp Metabolic Eqr374 ALBUMIN 3.9 g/dL 04/12/2015 Comp Metabolic Qzt510 TPRO 6.3 g/dL 04/12/2015 Comp Metabolic Sog657 GLOB 2.4 g/dL 04/12/2015 Comp Metabolic Wpk546 A/G Ratio 1.6 Ratio 04/12/2015 Comp Metabolic Ugt657 Osmo 285 mOsmo 04/12/2015 Tsh Ord6 hTSH II 0.18 uIU/mL 04/12/2015 %Hba1C Net638 % HbA1c 04268-7 6.4 % 04/12/2015 %Hba1C Ghf552 Gluc Ave 137 mg/dL 04/12/2015 Free T4 Esx224 FREE T4 1.13 ng/dL 04/12/2015 Cbc With [...] Ord2 RDW 14.6 % 11/14/2014 Comp Metabolic Gaz912 NA 137 mEq/L 11/14/2014 Comp Metabolic Ici669 K 3.6 mEq/L 11/14/2014 Comp Metabolic Wxe395 CL 98 mEq/L 11/14/2014 Comp Metabolic Uwj737 CO2 31.0 mEq/L 11/14/2014 Comp Metabolic Jgc605 ANION GAP 12 11/14/2014 Comp Metabolic Kwa945 GLUCOSE 110 mg/dL 11/14/2014 Comp Metabolic Qka442 Creat 0.8 mg/dL 11/14/2014 Comp Metabolic Qwr616 eGFR 81 ml/min/1.73m2 11/14/2014 Comp Metabolic Hjd652 BUN 14 mg/dL 11/14/2014 Comp Metabolic Yet128 B/C Ratio 17.7 Ratio 11/14/2014 Comp Metabolic Jgv747 CALCIUM 9.2 mg/dL 11/14/2014 Comp Metabolic Zjz257 ALK PHOS 135 U/L 11/14/2014 Comp Metabolic Rfj977 AST(SGOT) 17 U/L 11/14/2014 Comp Metabolic Zsq978 ALT(SGPT) 20 U/L 11/14/2014 Comp Metabolic Hst047 BILI T 0.3 mg/dL 11/14/2014 Comp Metabolic Khv133 ALBUMIN 3.7 g/dL 11/14/2014 Comp Metabolic Ejt014 TPRO 6.5 g/dL 11/14/2014 Comp Metabolic Vux818 GLOB 2.8 g/dL 11/14/2014 Comp Metabolic Yxy879 A/G Ratio 1.3 Ratio 11/14/2014 Comp Metabolic Dwp265 Osmo 275 mOsmo 11/14/2014 CHEM 14 0308371 AST 18 U/L 04/11/2014 CHEM 14 1907715 ALT 25 IU/L 04/11/2014 CHEM 14 2241419 BUN 13 MG/DL 04/11/2014 CHEM 14 5680955 ALBUMIN 4.1 GM/DL 04/11/2014 CHEM 14 7885585 CHLORIDE 103 MMOL/L 04/11/2014 CHEM 14 1642498 BILI TOT 0.3 MG/DL 04/11/2014 CHEM 14 9098719 ALK PHOS 107 U/L 04/11/2014 CHEM 14 7075829 SODIUM 139 MMOL/L 04/11/2014 CHEM 14 6955454 CREATININE 0.85 MG/DL 04/11/2014 CHEM 14 8028312 CALCIUM 9.2 MG/DL 04/11/2014 CHEM 14 2938441 POTASSIUM 3.7 MMOL/L 04/11/2014 CHEM 14 8407016 PROT TOT 7.1 GM/DL 04/11/2014 CHEM 14 3718547 GLUCOSE 85 MG/DL 04/11/2014 CHEM 14 3563699 BICARB 28 MMOL/L 04/11/2014 CHEM 14 9660801 ANION GAP 8 MEQ/L 04/11/2014 GFR CALC 7227012 GFR AA >60 ML/MIN 04/11/2014 GFR CALC 4299433 GFR NON-AA >60 ML/MIN 04/11/2014 URINALYSIS NONAUTO W/O SCOPE 12683 Specific [place] 1.020 DateTime(Free Text in Aprima) URINALYSIS NONAUTO W/O SCOPE 83156 PH 5.0 DateTime(Free Text in Aprima) URINALYSIS NONAUTO W/O SCOPE 81750 Protein neg DateTime( Free Text in Apr[employer]) URINALYSIS NONAUTO W/O SCOPE 08966 Blood neg DateTime(Free Text in Apr[employer]) URINALYSIS NONAUTO W/O SCOPE 81705 Bilirubin neg DateTime(Free Text in Aprima) URINALYSIS NONAUTO W/O SCOPE 37037 Ketones small DateTime(Free Text in Apr[employer]) URINALYSIS NONAUTO W/O SCOPE 89625 Urobilinogen neg DateTime(Free Text in Apr[employer]) URINALYSIS NONAUTO W/O SCOPE 23732 Nitrite neg DateTime( Free Text in Apr[employer]) URINALYSIS NONAUTO W/O SCOPE 61597 Leukocytes neg DateTime(Free Text in Aprima) Review of Systems System Result Effective Dates Constitutional recent illness 06/02/2018 Constitutional No chills [...] retractions 06/02/2018 None Full Exam - General 1995 Respiratory respiratory effort/rhythm Overall: normal rate 06/02/2018 None Full Exam - General 1995 Cardiovascular extremities Overall: no clubbing 06/02/2018 None [...] affect 06/02/2018 None Full Exam - General 1994 Constitutional general appearance Overall: well developed 04/28/2018 None Full Exam - General 1994 Constitutional general appearance Overall: in no acute distress 04/28/2018 None Full Exam - General 1994 Constitutional general appearance Overall: well nourished 04/28/2018 [...] masses 09/17/2015 None Full Exam - General 1995 Ears/Nose/Throat [...] nourished 06/30/2013 None Full Exam - General 1995 Eyes conjunctiva /eyelids Overall: conjunctiva clear 06/30/2013 None Full Exam - General 1994 Eyes conjunctiva /eyelids Overall: cornea clear 06/30/2013 None Full Exam - General 1995 Eyes conjunctiva /eyelids Overall: eyelids normal 06/30/2013 [...] CPT-4: J3301 02/22/2018 IMMUNIZATION ADMIN CPT -4: 87433 01/07/2018 FLU VAC NO PRSV 4 SHAKILA 3 YRS+ CPT-4: 71015 01/07/2018 TRIAMCINOLONE ACET INJ NOS CPT-4: J3301 01/22/2016 TRIAMCINOLONE ACET INJ NOS CPT-4: J3301 11/23/2014 THER/PROPH/DIAG INJ SC/IM CPT-4: 42311 11/23/2014 THER/PROPH/DIAG INJ SC/IM CPT-4: 21845 11/22/2014 TRIAMCINOLONE ACET INJ NOS CPT-4: J3301 11/22/2014 URINALYSIS NONAUTO W/O SCOPE CPT-4: 54582 11/14/2014 ROUTINE VENIPUNCTURE CPT-4: 57688 04/11/2014 CHEM 14 (COMPREHEN METABOLIC PANEL) CPT-4: 88474 04/11/2014 IMMUNIZATION ADMIN CPT -4: 14850 01/05/2014 FLU VAC NO PRSV 4 SHAKILA 3 YRS+ Assigned to/Alyssa Thomas CPT-4: 22504Iaervow 01/05/2014 FOOT EXAM PERFORMED SNOMED CT: 12302231 CPT-4: 2028F 06/20/2013 THER/PROPH/DIAG INJ SC/IM CPT-4: 54033 06/06/2013 KETOROLAC TROMETHAMINE INJ CPT-4: J1885 06/06/2013 Vital Signs Date Vital 06/02/2018 Blood Pressure 1: 148/86 Code : 8480-6 BMI: 29.7 Code : 28660-5 Heart Rate 1 : 98 bpm Height: 5'6" SpO2: 97% Weight: 181 lbs 04/28/2018 Blood Pressure 1: 138/78 Code : 8480-6 BMI: 30.0 Code : 17529-0 Heart Rate 1 : 89 bpm Height: 5'6" SpO2: 99% Weight: 183 lbs 03/29/2018 Blood Pressure 1: 140/72 Code : 8480-6 BMI: 31.8 Code : 53883-2 Heart Rate 1 : 78 bpm Height: 5'6" SpO2: 99% Weight: 194 lbs 02/22/2018 Blood Pressure 1: 130/68 Code : 8480-6 BMI: 31.5 Code : 80629-9 Heart Rate 1 : 91 bpm Height: 5'6" SpO2: 98% Weight: 192 lbs 01/07/2018 Blood Pressure 1: 138/82 Code : 8480-6 BMI: 31.3 Code : 92893-3 Heart Rate 1 : 95 bpm Height: 5'6" SpO2: 98% Weight: 191 lbs 10/01/2017 Blood Pressure 1: 138/88 Code : 8480-6 BMI: 30.3 Code : 83684-0 Heart Rate 1 : 80 bpm Height: 5'6" SpO2: 98% Weight: 185 lbs 06/08/2017 Blood Pressure 1: 148/92 Code : 8480-6 BMI: 31.5 Code : 12695-0 Heart Rate 1 : 88 bpm Height: 5'6" SpO2: 98% Weight: 192 lbs 11/12/2016 Blood Pressure 1: 140/80 Code : 8480-6 BMI: 29.7 Code : 09164-9 Heart Rate 1 : 82 bpm Height: 5'6" SpO2: 96% Weight: 181 lbs 08/11/2016 Blood Pressure 1: 152/88 Code : 8480-6 BMI: 30.3 Code : 55212-0 Heart Rate 1 : 73 bpm Height: 5'6" SpO2: 98% Weight: 185 lbs 03/31/2016 Blood Pressure 1: 124/86 Code : 8480-6 BMI: 30.2 Code : 11820-1 Heart Rate 1 : 86 bpm Height: 5'6" SpO2: 95% Weight: 184 lbs 02/01/2016 Blood Pressure 1: 112/60 Code : 8480-6 BMI: 29.5 Code : 58189-8 Heart Rate 1 : 68 bpm Height: 5'6" SpO2: 98% Weight: 180 lbs 01/22/2016 Blood Pressure 1: 132/80 Code : 8480-6 BMI: 29.8 Code : 84204-2 Heart Rate 1 : 76 bpm Height: 5'6" SpO2: 98% Temperature: 35.7 (C) / 96.2 (F) Weight: 182 lbs 01/07/2016 Blood Pressure 1: 134/86 Code : 8480-6 BMI: 30.0 Code : 45174-2 Heart Rate 1 : 78 bpm Height: 5'6" SpO2: 98% Weight: 183 lbs 12/03/2015 Blood Pressure 1: 146/86 Code : 8480-6 BMI: 30.2 Code : 55522-7 Heart Rate 1 : 93 bpm Height: 5'6" SpO2: 98% Weight: 184 lbs 8 oz 09/17/2015 Blood Pressure 1: 140/88 Code : 8480-6 BMI: 29.5 Code : 26124-2 Heart Rate 1 : 77 bpm Height: 5'6" SpO2: 98% Weight: 180 lbs 05/29/2015 Blood Pressure 1: 140/80 Code : 8480-6 BMI: 28.2 Code : 41993-1 Heart Rate 1 : 83 bpm Height: 5'6" SpO2: 98% Weight: 172 lbs 12/12/2014 Blood Pressure 1: 150/92 Code : 8480-6 BMI: 28.2 Code : 74153-6 Heart Rate 1 : 91 bpm Height: 5'6" SpO2: 96% Weight: 172 lbs 11/23/2014 Blood Pressure 1: 138/92 Code : 8480-6 11/22/2014 Blood Pressure 1: 126/80 Code : 8480-6 BMI: 28.7 Code : 06839-5 Heart Rate 1 : 86 bpm Height: 5'6" SpO2: 97% Weight: 175 lbs 11/14/2014 Blood Pressure 1: 130/82 Code : 8480-6 BMI: 28.7 Code : 13357-1 Heart Rate 1 : 72 bpm Height: 5'6" Temperature: 36.3 (C) / 97.4 (F) Weight: 175 lbs 09/04/2014 Blood Pressure 1: 128/82 Code : 8480-6 BMI: 30.3 Code : 06497-0 Heart Rate 1 : 80 bpm Height: 5'6" Weight: 185 lbs 08/04/2014 Blood Pressure 1: 140/82 Code : 8480-6 BMI: 31.3 Code : 48202-6 Heart Rate 1 : 92 bpm Height: 5'6" SpO2: 99% Weight: 191 lbs 04/11/2014 Blood Pressure 1: 142/80 Code : 8480-6 BMI: 34.7 Code : 86441-6 Heart Rate 1 : 74 bpm Height: 5'6" Weight: 212 lbs 01/05/2014 Blood Pressure 1: 144/84 Code : 8480-6 BMI: 36.7 Code : 09950-2 Heart Rate 1 : 89 bpm Height: 5'6" SpO2: 97% Weight: 224 lbs 10/10/2013 Blood Pressure 1: 112/70 Code : 8480-6 BMI: 36.1 Code : 43627-3 Heart Rate 1 : 104 bpm Height: 5'6" Weight: 220 lbs 08/02/2013 Blood Pressure 1: 178/98 Code : 8480-6 BMI: 36.4 Code : 88380-8 Heart Rate 1 : 100 bpm Height: 5'6" Weight: 222 lbs 06/30/2013 Blood Pressure 1: 142/82 Code : 8480-6 BMI: 35.9 Code : 16118-9 Heart Rate 1 : 86 bpm Height: 5'6" SpO2: 98% Temperature: 36.3 (C) / 97.3 (F) Weight: 219 lbs 06/20/2013 Blood Pressure 1: 126/78 Code : 8480-6 BMI: 36.2 Code : 80386-3 Heart Rate 1 : 76 bpm Height: 5'6" Weight: 221 lbs 06/06/2013 Blood Pressure 1: 158/98 Code : 8480-6 BMI: 36.2 Code : 87449-4 Heart Rate 1 : 92 bpm Height: 5'6" Weight: 221 lbs 02/21/2013 Blood Pressure 1: 128/82 Code : 8480-6 BMI: 35.2 Code : 73361-9 Heart Rate 1 : 80 bpm Height: 5'6" Temperature: 35.7 (C) / 96.3 (F) Weight: 215 lbs 12/13/2012 Blood Pressure 1: 132/86 Code : 8480-6 BMI: 35.7 Code : 79914-2 Heart Rate 1 : 80 bpm Height: 5'6" Weight: 218 lbs 09/23/2012 Blood Pressure 1: 132/90 Code : 8480-6 BMI: 36.2 Code : 64638-2 Heart Rate 1 : 84 bpm Height: 5'6" Weight: 221 lbs 06/14/2012 Blood Pressure 1: 134/84 Code : 8480-6 Heart Rate 1: 84 bpm Respiratory Rate : 20 bpm Weight: 221 lbs 05/21/2012 Blood Pressure 1: 136/80 Code : 8480-6 BMI: 35.9 Code : 85137-8 Heart Rate 1 : 20 bpm Height: 5'6" Respiratory Rate: 16 bpm Temperature: 36.7 ( C) / 98.0 (F) Weight: 219 lbs Functional Status No Functional Status data History of Present Illness Symptom Name Status Result Effective Date Notes Quality insulin dependent 06/02/2018 None Quality chronic [...] surgery was canceled. She was referred to order expediter at acute renal failure Onset of Symptom [...] diabetes mellitus Exercise minimal exercise 01/05/2014 starting [facility] diabetes mellitus Pertinent Findings Denies [...] in the larynx 02/21/2013 patient went to [facility] thursday. was given a zpack, prednisone, and [...] data Encounters Encounter Performer Location Codes Date [phone]) [id number] EST. 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 PATIENT, LEVEL IV Diagnosis: Type 2 diabetes mellitus without complications[ICD10: E11.9] Diagnosis: 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[ ICD10: I63.341] Diagnosis: Essential (primary) hypertension[ICD10: I10] Diagnosis: Other specified symptoms and signs involving the circulatory and respiratory systems[ICD10: R09.89] [facility] CPT-4: 61244 04/28/2018 ([id number]) 52540 EST. 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 PATIENT, LEVEL IV Diagnosis: Other acute sinusitis[ICD10: J01.80] Diagnosis: Other allergic rhinitis[ICD10: J30.89] Diagnosis: Actinic keratosis[ICD10: L57.0] Diagnosis: Pain in left forearm[ICD10: M79.632] Diagnosis: Generalized anxiety disorder[ICD10: F41.1] Diagnosis: Major depressive disorder, single episode, moderate[ICD10: F32.1] Tiffanie Curran MD, [facility] CPT-4: 68190 02/22/2018 39501 EST. PATIENT, LEVEL IV Diagnosis: Type 2 diabetes mellitus with hyperglycemia[ICD10: E11.65] Diagnosis: Other specified hypothyroidism[ICD10: E03.8] Diagnosis: VACCIN FOR INFLUENZA[ICD10: Z23] [facility] CPT- 4: 85979 01/07/2018 27536 EST. PATIENT, LEVEL IV Diagnosis: Type 2 diabetes mellitus with hyperglycemia[ICD10: E11.65] Diagnosis: Other specified hypothyroidism[ICD10: E03.8] Diagnosis: Other allergic rhinitis[ICD10: J30.89] Tiffanie Curran MD, [facility] CPT-4: 04323 10/01/2017 78880 EST. PATIENT, LEVEL IV Diagnosis: Type 2 diabetes mellitus with hyperglycemia[ICD10: E11.65] Diagnosis: Hypothyroidism, unspecified[ICD10: E03.9] Diagnosis: Generalized anxiety disorder[ICD10: F41.1] Diagnosis: Major depressive disorder, single episode, moderate[ICD10: F32.1] Tiffanie Curran MD, [facility] CPT-4: 42419 06/08/2017 ([id number]) PREV VISIT EST AGE 40-64 Diagnosis: Encounter for general adult medical examination without abnormal findings[ICD10: Z00.00] Eleonora Curran MD, [facility] CPT-4: 38243 11/12/2016 ([id number]) 58918 EST. PATIENT, LEVEL III Diagnosis: Allergic rhinitis due to pollen[ICD10: J30.1] Diagnosis: Acute upper respiratory infection, unspecified[ICD10: J06.9] Talya Curran MD, [facility] CPT-4: 10230 09/16/2016 ([id number]) 84256 EST. PATIENT, LEVEL IV Diagnosis: Essential (primary) hypertension[ICD10: I10] Diagnosis: Type 2 diabetes mellitus without complications[ICD10: E11.9] Diagnosis: Functional diarrhea[ICD10: K59.1] Diagnosis: Mixed hyperlipidemia[ICD10: E78.2] Eleonora Curran MD, [facility] CPT-4: 23090 08/11/2016 ([id number]) 92374 EST. PATIENT, LEVEL III Diagnosis: Cramp and spasm[ICD10: R25.2] Diagnosis: Nausea[ICD10: R11.0] Talya Curran MD, [facility] CPT-4: 60004 03/31/2016 ([id number]) 18756 EST. PATIENT, LEVEL IV Diagnosis: Cough[ICD10: R05] Diagnosis: Essential (primary) hypertension[ICD10: I10] Diagnosis: Hypothyroidism, unspecified[ICD10: E03.9] Diagnosis: Gastro-esophageal reflux disease without esophagitis[ICD10: K21.9] Talya Curran MD, [facility] CPT-4: 42173 02/01/2016 ([id number]) 38870 EST. PATIENT, LEVEL III Diagnosis: Cough[ICD10: R05] Diagnosis: Acute bronchitis, unspecified[ICD10: J20.9] Talya Curran MD, [facility] CPT-4: 15486 01/22/2016 ([id number]) 60008 EST. PATIENT, LEVEL IV Diagnosis: Type 2 diabetes mellitus without complications[ICD10: E11.9] Diagnosis: Essential (primary) hypertension[ICD10: I10] Diagnosis: Dysphagia, pharyngeal phase[ICD10: R13.13] Eleonora Curran MD, [facility] CPT-4: 26415 01/07/2016 ([id number]) 41001 EST. PATIENT, LEVEL IV Diagnosis: Type 2 diabetes mellitus without complications[ICD10: E11.9] Diagnosis: Essential (primary) hypertension[ICD10: I10] Diagnosis: Pain in right knee[ICD10: M25.561] Eleonora Curran MD [facility] CPT-4: 41564 12/03/2015 ([id number]) 65281 EST. PATIENT, LEVEL IV Diagnosis: Type 2 diabetes mellitus with hyperglycemia[ICD10: E11.65] Diagnosis: Essential (primary) hypertension[ICD10: I10] Eleonora Curran MD [facility] CPT-4: 75280 09/17/2015 ([id number]) 40976 EST. 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 PATIENT, LEVEL III Diagnosis: Diabetes mellitus, type II[ICD9: 250.00] Diagnosis: ESSENTIAL HYPERTENSION[ICD9: 401.9] Diagnosis: ESOPHAGEAL REFLUX[ICD9: 530.81] Eleonora Curran MD [facility] CPT- 4: 13457 12/12/2014 ([id number]) 21035 EST. PATIENT, LEVEL III Diagnosis: ALLERGIC URTICARIA[ICD9: 708.0] Kristan Curran MD [facility] CPT-4 : 06663 11/22/2014 ([id number]) 35099 EST. PATIENT, LEVEL III Diagnosis: Abdominal pain[ICD9: 789.00] Diagnosis: Status post gastric surgery[ICD9: V45.89] [facility] CPT-4: 35636 11/14/2014 ([id number]) 99541 EST. PATIENT, LEVEL III Diagnosis: Diabetes mellitus, type II[ICD9: 250.00] Diagnosis: ESSENTIAL HYPERTENSION[ICD9: 401.9] Diagnosis: OBESITY[ICD9: 278.00] Diagnosis: ESOPHAGEAL REFLUX[ICD9: 530.81] [facility] CPT- 4: 89558 09/04/2014 ([id number]) 60125 EST. PATIENT, LEVEL IV Diagnosis: Diabetes mellitus, type II[ICD9: 250.00] Diagnosis: ESSENTIAL HYPERTENSION[ICD9: 401.9] Diagnosis: OBESITY[ICD9: 278.00] Eleonora Curran MD, [facility] CPT-4: 56353 08/04/2014 ([id number]) 76378 EST. PATIENT, LEVEL IV Diagnosis: Thyroid nodule[ICD9: 241.0] Diagnosis: Decreased renal function[ICD9: 593.9] Diagnosis: Diabetes mellitus, type II[ICD9: 250.00] Talya Curran MD, [facility] CPT-4: 28441 04/11/2014 ([id number]) 82661 EST. PATIENT, LEVEL IV Diagnosis: Chronic diarrhea[ICD9: 787.91] Diagnosis: DM W/O COMPLICATION TYPE II, UNCONTROLLED[ICD9: 250.02] Diagnosis: ESSENTIAL HYPERTENSION[ICD9: 401.9] Talya Curran MD, [facility] CPT-4: 68061 01/05/2014 31314 EST. PATIENT, LEVEL IV Diagnosis: DM W/O COMPLICATION TYPE II, UNCONTROLLED[ICD9: 250.02] Diagnosis: OBESITY[ICD9: 278.00] Diagnosis: Generalized anxiety disorder[ICD9: 300.02] Diagnosis: ESSENTIAL HYPERTENSION[ICD9: 401.9] Eleonora Curran MD, [facility] CPT-4: 16848 10/10/2013 ([id number]) 00537 EST. PATIENT, LEVEL IV Diagnosis: DM W/O COMPLICATION TYPE II, UNCONTROLLED[ICD9: 250.02] Diagnosis: Shoulder pain, right[ICD9: 719.41] Diagnosis: INSOMNIA NOS[ICD9: 780.52] Eleonora Curran MD, [facility] CPT- 4: 12832 08/02/2013 ([id number]) 37324 EST. PATIENT, LEVEL IV Diagnosis: DM W/O COMPLICATION TYPE II, UNCONTROLLED[SNOMED: 92001531] Diagnosis: COUGH[ICD9: 786.2] Diagnosis: MYALGIA AND MYOSITIS[ICD9: 729.1] Eleonora Curran MD, [facility] CPT-4: 02795 06/30/2013 ([id number]) 65254 EST. PATIENT, LEVEL III Diagnosis: DM W/O COMPLICATION TYPE II, UNCONTROLLED[SNOMED: 33954147] Eleonora Curran MD [facility] CPT-4: 29598 06/20/2013 ([id number]) 81488 EST. PATIENT, LEVEL IV Diagnosis: DM W/O COMPLICATION TYPE II, UNCONTROLLED[SNOMED: 53773593] Eleonora Curran MD [facility] CPT-4: 69025 06/06/2013 ([id number]) 09180 EST. PATIENT, LEVEL IV Diagnosis: Acute bronchitis[ICD9: 466.0] Diagnosis: Cough[ICD9: 786.2] Diagnosis: Myalgia[ICD9: 729.1] Eleonora Curran MD [facility] CPT-4: 29890 02/21/2013 88370 EST. PATIENT, LEVEL IV Diagnosis: DM W/O COMPLICATION TYPE II, UNCONTROLLED[SNOMED: 63630139] Diagnosis: OBESITY[ICD9: 278.00] Diagnosis: Dietary counseling and surveillance[ICD9: V65.3] Eleonora Curran MD, [facility] CPT-4: 93357 12/13/2012 [id number]) 10076 EST. PATIENT, LEVEL IV Diagnosis: DM W/O COMPLICATION TYPE II, UNCONTROLLED[SNOMED: 22564605] Diagnosis: HYPERLIPIDEMIA[ICD9: 272.4] Eleonora Curran MD [facility] CPT- 4: 24463 09/23/2012 [id number]) 70201 EST. PATIENT, LEVEL IV Diagnosis: Diabetes mellitus type 2, uncontrolled[SNOMED: 76159926] Diagnosis: Hyperlipidemia[ICD9: 272.4] Diagnosis: ESSENTIAL HYPERTENSION[SNOMED: 16904986] Talya Curran MD, [facility] CPT-4: 41588 06/14/2012 OFFICE VISIT, NEW - LEVEL 3 Diagnosis: Influenza[ICD9: 487.1] Diagnosis: COUGH[ICD9: 786.2] Diagnosis: FEVER NOS[ICD9: 780.60] Diagnosis: Diarrhea[ICD9: 787.91] Diagnosis: Diabetes mellitus, type II[SNOMED: 205618104] Talya Curran MD, [facility] CPT-4: 84809 05/21/2012 Plan of Care Planned Activity Notes [...] with nuedexta. 06/02/2018 Appointment: Eleonora Curran WPtel: [address] [place], [place] [address] (15 min) Moderate 06/02/2018 Patient Education: Patient Medication Summary Completed 06/02/2018 Visit Plan: Stroke - with some memory loss and persistent left hand and leg weakness - Recommendation for patient to be off until after spring break due to persistent weakness, and memory loss and fatigue - [facility] rx [facility] [address] office make appt with dr. parrish in [place] Diabetes Mellitus - controlled - per recent [...] at home. 04/28/2018 Appointment: [phone] (15 min) Moderate 04/28/2018 Patient Education: Patient Medication Summary Completed 04/28/2018 Patient Education: Diabetes Completed 04/28/2018 Care Plan: Referral Order SNOMED-CT : [id number] Pending 04/28/2018 Appointment: Tayo Tiffanie WPtel: [phone] [facility] (30 min) Complex 04/07/2018 Visit Plan: Hypertension [...] 6 months. 03/29/2018 Appointment: [facility] Curran [facility]el[phone] [facility] (15 min) Moderate 03/29/2018 Patient Education: Patient [...] lesions. 02/22/2018 Appointment: [facility]iffanie Cr [phone] [place] (15 min) Moderate 02/22/2018 Patient Education: Patient [...] of control. 01/07/2018 Appointment: Tiffanie Cr [facility]Ptel: [phone] [facility] [place] (15 min) Moderate 01/07/2018 Patient Education: Patient Medication Summary Completed 01/07/2018 Patient Education: Diabetes Completed 01/07/2018 Appointment: Tiffanie Cr WPtel[phone] [facility] [place] (15 min) Moderate 12/31/2017 Patient Education: [...] allergy spray. 10/01/2017 Appointment: Tiffanie Cr WPtel: [facility]5 [facility] (15 min) Moderate 10/01/2017 Patient Education: Patient Medication Summary Completed 10/01/2017 Appointment: Tiffanie Cr WPtel[phone] [facility] (15 min) Moderate 09/07/2017 Visit Plan: Diabetes [...] patient. 06/08/2017 Appointment: Tiffanie Cr WPtel: [phone] [facility] (30 min) Complex 06/08/2017 Patient Education: Patient [...] 11/12/2016 Appointment: Eleonora Curran WPtel: [phone] [facility] (15 min) Moderate 11/12/2016 Patient Education: Patient Medication Summary Completed 11/12/2016 Patient Education: Patient Medication Summary Completed 11/12/2016 Appointment: Eleonora Curran WPtel: [facility]2 [facility] (15 min) Moderate 11/06/2016 Visit Plan: [...] pharmacy. 09/16/2016 Appointment: Talya Hernandez WPtel: [phone] [phone] (10 min) Simple 09/16/2016 Patient Education: Patient Medication Summary Completed 09/16/2016 Care Plan: [facility] 28565-1 Pending 08/16/2016 Visit Plan: Diabetes Mellitus - [...] acute concerns. 08/11/2016 Appointment: Eleonora Curran WPtel: [facility] (15 min) Moderate 08/11/2016 Patient Education: Patient Medication Summary Completed 08/11/2016 Patient Education: Obesity Completed 08/11/2016 Appointment: [facility]on[facility] Curran WPtel[facility] [phone] [facility] (15 min) Moderate 07/14/2016 Patient Education: Patient Medication Summary Completed 07/04/2016 Care Plan: Cbc With Differential Pending 07/04/2016 Care Plan: Comp Metabolic Pending 07/04/2016 Care Plan: Tsh Pending 07/04/2016 Care Plan: Lipid Pending 07/04/2016 Care Plan: %Hba1C LOINC : 82128-0 Pending 07/04/2016 Care Plan: Free T4 Pending 07/04/2016 Appointment: Eleonora Curran WPtel: [phone] [facility] (15 min) Moderate 06/16/2016 Appointment: Eleonora Curran WPtel: [phone] [facility] (15 min) Moderate 05/06/2016 Visit Plan: Gastroenteritis - discussed need to stay away from milk products while acutely ill with diarrhea and nausea and emesis as it may worsen the symptoms. Liquids initially until the nausea improves, then recommend to advance to bland diet for 1 day, then advance as tolerated. Call if symptoms not improved. 03/31/2016 Appointment: Talya Hernandez WPtel: [phone] [phone] (10 min) Simple 03/31/2016 Patient Education: Patient [...] not improving. 02/01/2016 Appointment: Talya Hernandez WPtel: [facility]9 [phone] (30 min) Complex 02/01/2016 Patient Education: Patient Medication Summary Completed 02/01/2016 Visit Plan: Bronchitis - acute case of bronchitis identified. Pt has been given antibiotics, breathing treatments as appropriate, and pt has been instructed to call if symptoms are not improved, or if symptoms acutely worsen. 01/22/2016 Appointment: Talya Hernandez WPtel: [phone] [phone] (15 min) Moderate 01/22/2016 Patient Education: Patient [...] to monitor 01/07/2016 Appointment: Eleonora Curran WPtel: [address] [place], [place] [address] (15 min) Moderate 01/07/2016 Patient Education: Patient [...] stopped 09/17/2015 Appointment: Eleonora Curran WPtel: [phone] [facility] (15 min) Moderate 09/17/2015 Patient Education: [...] Hypertension Completed 05/29/2015 Appointment: Eleonora Curran WPtel: [phone] [facility] (15 min) Moderate 05/22/2015 Appointment: (15 [...] control. 12/12/2014 Appointment: Eleon[facility] Curran WPtel: [phone] [facility] (15 min) Moderate 12/12/2014 Patient Education: Patient Medication Summary Completed 12/12/2014 Patient Education: Hypertension Completed 12/12/2014 Appointment: Talya Hernandez WPtel: [phone] Follow up 11/28/2014 Patient Education: Patient Medication [...] starting to become less controlled.michaela sample - [id number] exp 02/2016 novonordisk Hypertension - well controlled - continue with current medications, continue with no added salt diet. Pt has been encouraged to exercise daily. The pt has been advised to call the office if there are any acute concerns about change in blood pressure readings at home. 09/04/2014 Appointment: Eleonora Curran WPtel: [phone] [facility] Follow up 09/04/2014 Patient Education: Patient Medication Summary Completed 09/04/2014 Patient Education: Hypertension Completed 09/04/2014 Care Plan: Referral Order SNOMED-CT : [id number] Ordered 09/04/2014 Visit Plan: Hypertension - well [...] stop metformin 08/04/2014 Appointment: Eleonora Curran WPtel: [phone] [facility] Follow up 08/04/2014 Patient Education: Patient Medication Summary Completed 08/04/2014 Patient Education: Hypertension Completed 08/04/2014 Visit Plan: Thyroid nodules-nodule on left lobe has increased in size-biopsy scheduled for Decrease renal function- secondary to dehydration-repeat labs-maintain adequate oral intake-follow up with order expediter as scheduled DM-hgb a1c improved-continue with same [...] Completed 01/05/2014 Appointment: Eleonora Curran WPtel: [phone] [facility] Follow up 01/03/2014 Visit Plan: Diabetes [...] to relax. 10/10/2013 Appointment: Eleonora Curran WPtel: [facility]8 [facility] Follow up 10/10/2013 Patient Education: Patient Medication Summary Completed 10/10/2013 Patient Education: Hypertension Completed 10/10/2013 Appointment: Eleonora Curran WPtel: [address] [place], [place] [phone] Follow up 09/13/2013 Appointment: Eleonora Curran WPtel: [facility]6 [facility] Follow up 08/03/2013 Visit Plan: Diabetes [...] treatment options. 08/02/2013 Appointment: Eleonora Curran WPtel: [facility] [place] Follow up 08/02/2013 Patient Education: Patient [...] urgent care. 06/30/2013 Appointment: Eleonora Curran WPtel: [facility]2 [facility] Sick 06/30/2013 Patient Education: Patient Medication Summary [...] patient today. 06/20/2013 Appointment: Eleonora Curran WPtel: [facility] Diabetic education 06/20/2013 Patient Education: Patient Medication Summary Completed 06/20/2013 Appointment: Eleonora Curran WPtel: [facility]0 [facility] Follow up 06/13/2013 Visit Plan: Shoulder [...] acute bronchitis. 02/21/2013 Appointment: Eleonora Curran WPtel: [facility]6 [facility] [place] [address] 02/21/2013 Patient Education: Patient Medication Summary Completed [...] 3 months. 12/13/2012 Appointment: Eleonora Curran WPtel: [facility] Follow up 12/13/2012 Patient Education: Patient [...] to medications. 09/23/2012 Appointment: Eleonora Curran WPtel: [facility] Follow up 09/23/2012 Patient Education: Patient [...] home. 06/14/2012 Appointment: Talya Hernandez WPtel: [phone] Follow up 06/14/2012 Patient Education: Patient Medication Summary Completed 06/14/2012 Patient Education: Hypertension Completed 06/14/2012 Visit Plan: Muwtl-pkepz-vvim aches-suspect influenza- patient no indication for tamiflu [...] less controlled. 05/21/2012 Appointment: Talya Hernandez WPtel: [phone] New Patient 05/21/2012 Patient Education: Patient Medication Summary Completed 05/21/2012 Referral: Hernandez Dennis WPtel: Referral Appointment Requested Referral: [facility] Referral Appointment Requested Referral: [facility] 04/29 Referral info faxed. They will contact her for appt. Patient informed Appointment Requested Instructions Comment stay off of work until after spring break - come back to the office in 1 month we will make you an appt with Dr. Parrish - neurologist in [place]. stop the lisinopril and start on losartan [...] office make appt with dr. parrish in [place] Diabetes Mellitus - controlled - per recent [...] discussed with pt - continue with nuedexta. . Well Adult - pt was counseled [...] months based on previous levels of control. pt to start on victoza 1.2 mg [...] assure normal liver response to medications. Plan: (16987) FLU VAC NO PRSV 4 SHAKILA 3 [...] daily stop metformin I SENT ZITHROMAX TO [facility]-2 PILLS TODAY AND THEN 1 PILL DAILY UNTIL GONE. I ALSO SENT A PRESCRIPTION FOR DIFLUCAN FOR A YEAST INFECTION. Recommend PROBIOTIC twice daily-lactobacillus. START TODAY. [facility] Culturelle Align IF THE DIARRHEA PERSISTS OR WORSENS, START FLAGYL 500MG THREE TIMES DAILY-I SENT IT TO [facility]. I will call phenergan with codeine cough syrup to [facility]. Okay to take 5- 10ml every 6 hours as needed for cough. . Vemfi-lgxvo-jlfi aches-suspect influenza-patient no indication for tamiflu due [...] starting to become less controlled.michaela sample - [id number] exp 02/2016 novonordisk Hypertension - well controlled [...] WEEK THEN INCREASE TO 10 UNITS NIGHTLY CHECK CHEM PANEL METFORMIN TO 500MG DAILY INCREASE PO FLUIDS . Thyroid nodules-nodule on left lobe has increased in size-biopsy scheduled for Decrease renal function-secondary to dehydration-repeat labs-maintain adequate oral intake-follow up with order expediter as scheduled DM-hgb a1c improved-continue with same [...] as tolerated. Call if symptoms not improved. Stop victoza - start Xultophy (it is [...] we will look into other treatment options. INCREASE LANTUS TO 15 UNITS AT BEDTIME [...] improved control per pt's report, RX for [employer] CGM for improved checking of her FSBS [...] rx for handicap placard for 6 months. HOLD LIVALO AND FISH OIL X 1 [...]
--- OUTSIDE RECORDS SUMMARY | 2018-07-06 23:45 | XMS REPORT | CCD ---
Author Author Talya Hernandez MD, [facility] Address [address] [place] [address] Phone Care Team Providers Care Technician [employer] Name Role Phone PP Unavailable CCM Unavailable Summary Purpose Interface Exchange Insurance Providers Payer name Policy type / Coverage type Covered democrat ID Effective Begin Date Effective End Date Blue Cross Blue 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 Unknown Has never used illegal drugs 05/21/2012 Allergies, Adverse Reactions, Alerts Substance Reaction Codes Entered Date Inactivated Date Status * NO KNOWN ENVIRONMENTAL ALLERGIES Unknown 05/21/2012 No Inactive Date Active * NO KNOWN FOOD ALLERGIES Unknown 05/21/2012 No Inactive Date Active ciprofloxacin hives RxNorm: 71045 11/22/2014 No Inactive Date Active PNEUMOCOCCAL VACCINE [...] ICD-9: 250.00 ICD-10: E11.9 Active 04/11/2014 Unknown Generalized anxiety disorder ICD-9: 300.02 ICD-10: [...] complications ICD-9: 250.00 ICD-10: E11.9 04/11/2014 Active Generalized anxiety disorder ICD-9: 300.02 ICD-10: [...] Start Date Stop Date Status Fill Instructions losartan 100 mg tablet RxNorm: 474207 1 Tablet(s) PO daily 05/201801/22/2019 Active stop lisionpril and start on losartan Plavix 75 mg tablet RxNorm: 133769 1 Tablet(s) PO daily 201807/26/2018 Active oxybutynin chloride 5 mg tablet RxNorm: 513358 1 Tablet(s) PO daily 04/28/2018 04/22/2019 Active Nuedexta 20 mg-10 mg capsule RxNorm: 2892460 1 Capsule(s) PO daily x 1 week then increase up to BID 04/28/2018 11/23/2018 Active Lipitor 80 mg tablet RxNorm: 004756 1 Tablet(s) PO daily TAKE ONE TABLET BY MOUTH ONCE DAILY IN THE EVENING 04/28/201804/22 Active metoprolol succinate ER 50 mg tablet,extended release 24 hr RxNorm: 192352 TAKE 1 TABLET BY MOUTH ONCE DAILY 03/29/2018 No Stop Date Active Prozac 40 mg capsule RxNorm: 323589 1 Capsule(s) PO daily 03/0503/04/2018 Inactive Prozac 40 mg capsule RxNorm: 815488 1 Capsule(s) PO daily 03/0504/03/2018 Inactive amoxicillin 500 mg capsule RxNorm: 040584 1 Capsule(s) PO TID 02/22/2018 02/28/2018 Inactive Kenalog 40 mg/mL suspension for injection RxNorm: 0426574 Milliliter(s) Inj 02/22/2018 02/22/2018 Inactive Prozac 20 mg capsule RxNorm: 034018 1 Capsule(s) PO daily 02/2203/01/2018 Inactive Diflucan 150 mg tablet RxNorm: 947499 1 Tablet(s) PO daily 02/26/2018 Inactive levothyroxine 88 mcg tablet RxNorm: 527467 TAKE 1 TABLET BY MOUTH ONCE DAILY 02/15/2018 No Stop Date Active Cymbalta 60 mg capsule,delayed release RxNorm: 816195 TAKE 1 CAPSULE BY MOUTH ONCE DAILY 02/15/2018 04/27/2018 Inactive Diflucan 150 mg tablet RxNorm: 521863 1 Tablet(s) PO daily No Stop Date Active Xultophy 100/3.6 100 unit-3.6 mg/mL (3 mL) subcutaneous insulin pen RxNorm: 0901647 30 Unit(s) SQ daily 01/07/20182017 Inactive Xultophy 100/3.6 100 unit-3.6 mg/mL (3 mL) subcutaneous insulin pen RxNorm: 3285446 22 Unit(s) SQ daily 12/03/20172017 Inactive Xultophy 100/3.6 100 unit-3.6 mg/mL (3 mL) subcutaneous insulin pen RxNorm: 7858158 20 Unit(s) SQ daily 11/27/20172017 Inactive Xultophy 100/3.6 100 unit-3.6 mg/mL (3 mL) subcutaneous insulin pen RxNorm: 5581213 20 Unit(s) SQ daily 11/27/20172017 Inactive Xultophy 100/3.6 100 unit-3.6 mg/mL (3 mL) subcutaneous insulin pen RxNorm: 3296085 16 Unit(s) SQ daily 10/26/20172017 Inactive Xultophy 100/3.6 100 unit-3.6 mg/mL (3 mL) subcutaneous insulin pen RxNorm: 5271626 16 Unit(s) SQ daily 10/26/20172017 Inactive potassium chloride ER 10 mEq tablet,extended release RxNorm: 359047 1 Tablet(s) PO TIW 10/21/2017 10/15/2018 Active Diflucan 150 mg tablet RxNorm: 074071 TAKE ONE TABLET BY MOUTH ONCE DAILY 10/21/2017 01/06/2018 Inactive Cymbalta 60 mg capsule,delayed release RxNorm: 814518 1 Capsule(s) PO daily 10/07/2017 02/03/2018 Inactive potassium chloride ER 10 mEq tablet,extended release RxNorm: 019510 TAKE ONE TABLET BY MOUTH TWICE A WEEK 10/07/2017 Inactive Lipitor 20 mg tablet RxNorm: 353831 TAKE ONE TABLET BY MOUTH ONCE DAILY IN THE EVENING 09/04/2017 04/27/2018 Inactive metoprolol succinate ER 50 mg tablet,extended release 24 hr RxNorm: 449499 TAKE ONE TABLET BY MOUTH ONCE DAILY 09/04/2017 03/28/2018 Inactive Victoza 3-To 0.6 mg/0.1 mL (18 mg/3 mL) subcutaneous pen injector RxNorm: 649180 Milligram(s) SQ 09/02/2017 03/22/2018 Inactive Diflucan 150 mg tablet RxNorm: 376781 TAKE ONE TABLET BY MOUTH ONCE DAILY 09/02/2017 10/20/2017 Inactive potassium chloride ER 10 mEq tablet,extended release RxNorm: 343585 TAKE ONE TABLET BY MOUTH TWICE A WEEK 08/10/2017 Inactive levothyroxine 88 mcg tablet RxNorm: 650035 TAKE ONE TABLET BY MOUTH ONCE DAILY 08/10/2017 02/14/2018 Inactive Diflucan 150 mg tablet RxNorm: 328402 1 Tablet(s) PO daily 07/20/2017 Inactive Diflucan 150 mg tablet RxNorm: 204547 1 Tablet(s) PO daily 07/09/2017 Inactive Cymbalta 60 mg capsule,delayed release RxNorm: 619663 1 Capsule(s) PO daily 07/10/2017 07/09/2017 Inactive Cymbalta 60 mg capsule,delayed release RxNorm: 562294 1 Capsule(s) PO daily 07/10/2017 10/06/2017 Inactive Diflucan 150 mg tablet RxNorm: 281086 1 Tablet(s) PO daily 07/14/2017 Inactive Wellbutrin XL 150 mg 24 hr tablet, extended release RxNorm: 368309 1 Tablet(s) PO daily 06/08/2017 07/09/2017 Inactive Victoza 3-To 0.6 mg/0.1 mL (18 mg/3 mL) subcutaneous pen injector RxNorm: 743396 Milligram(s) SQ 06/08/2017 09/01/2017 Inactive Initiate at 0.6 mg per day for one week then increase to 1.2 mg. Dispense qty sufficient hydrochlorothiazide 25 mg tablet RxNorm: 428406 TAKE ONE TABLET BY MOUTH ONCE DAILY 05/25/2017 No Stop Date Active citalopram 40 mg tablet RxNorm: 262245 TAKE ONE TABLET BY MOUTH ONCE DAILY 05/13/2017 07/09/2017 Inactive potassium chloride ER 10 mEq tablet,extended release RxNorm: 648764 TAKE ONE TABLET BY MOUTH TWICE A WEEK 03/25/2017 Inactive hydrochlorothiazide 25 mg tablet RxNorm: 665092 TAKE ONE TABLET BY MOUTH ONCE DAILY 02/23/2017 05/24/2017 Inactive levothyroxine 88 mcg tablet RxNorm: 321892 TAKE ONE TABLET BY MOUTH ONCE DAILY 01/28/2017 07/26/2017 Inactive Trulicity 1.5 mg/0.5 mL subcutaneous pen injector RxNorm: 8462117 INJECT ONE SYRINGE SUBCUTANEOUSLY ONCE A WEEK 01/27/2017 07/09/2017 Inactive Diflucan 150 mg tablet RxNorm: 829014 1 Tablet(s) PO daily 12/31/2016 Inactive Invokana 100 mg tablet RxNorm: 2465677 1 Tablet(s) PO daily 11/201602/03/2017 Inactive Invokana 100 mg tablet RxNorm: 2845054 1 Tablet(s) PO daily 11/201612/01/2016 Inactive potassium chloride ER 10 mEq tablet,extended release RxNorm: 409957 1 Tablet(s) PO BIW 11/17/2016 11/16/2016 Inactive metformin 500 mg tablet RxNorm: 923449 1 Tablet(s) PO BID 11/1712/01/2016 Inactive potassium chloride ER 10 mEq tablet,extended release RxNorm: 773824 1 Tablet(s) PO BIW 11/17/2016 11/16/2016 Inactive potassium chloride ER 10 mEq tablet,extended release RxNorm: 849574 1 Tablet(s) PO 2 times weekly 11/17/2016 10/06/2017 Inactive Diflucan 150 mg tablet RxNorm: 868677 1 Tablet(s) PO daily 09/18/2016 Inactive Diflucan 150 mg tablet RxNorm: 333964 1 Tablet(s) PO daily 09/23/2016 Inactive amoxicillin 500 mg tablet RxNorm: 668182 1 Tablet(s) PO BID 09/25/2016 Inactive metoprolol succinate ER 50 mg tablet,extended release 24 hr RxNorm: 101648 Tablet (s) TAKE ONE TABLET BY MOUTH ONCE DAILY 08/11/2016 08/05/2017 Inactive Lipitor 20 mg tablet RxNorm: 809702 1 Tablet(s) PO QPM 201609/03/2017 Inactive Questran Light 4 gram oral powder RxNorm: 0350318 1 PO TID 05/25/2017 Inactive Trulicity 1.5 mg/0.5 mL subcutaneous pen injector RxNorm: 3012873 0.5 Milliliter(s ) SQ QW 08/11/2016 01/07/2017 Inactive levothyroxine 88 mcg tablet RxNorm: 470313 TAKE ONE TABLET BY MOUTH ONCE DAILY 07/28/2016 01/23/2017 Inactive Trulicity 0.75 mg/0.5 mL subcutaneous pen injector RxNorm: 5419996 INJECT THREE- FOURTHS MG(S) SUBCUTANEOUSLY ONCE A WEEK 07/01/2016 08/10/2016 Inactive metoprolol succinate ER 50 mg tablet,extended release 24 hr RxNorm: 487298 TAKE ONE TABLET BY MOUTH ONCE DAILY 06/11/2016 08/09/2016 Inactive citalopram 40 mg tablet RxNorm: 691109 TAKE ONE TABLET BY MOUTH ONCE DAILY 04/14/2016 05/12/2017 Inactive Diflucan 150 mg tablet RxNorm: 273112 1 Tablet(s) PO daily 01/24/2016 Inactive hydrochlorothiazide 25 mg tablet RxNorm: 354955 Tablet(s) 1 TABLET(S) PO DAILY 01/25/2016 01/18/2017 Inactive Diflucan 150 mg tablet RxNorm: 013290 1 Tablet(s) PO daily 01/31/2016 Inactive Zithromax Z-To 250 mg tablet RxNorm: 489743 1 Tablet(s) PO daily 01/24/2016 01/23/2016 Inactive zpack Zithromax Z-To 250 mg tablet RxNorm: 339715 1 Tablet(s) PO daily 01/24/2016 01/28/2016 Inactive zpack prednisone 10 mg tablets in a dose pack RxNorm: 528192 1 Tablet(s) PO as directed 01/24/2016 01/31/2016 Inactive 6-5-4-3-2-1 Kenalog 40 mg/mL suspension for injection RxNorm: 8562679 Milliliter(s) Inj 01/22/2016 01/22/2016 Inactive prednisone 20 mg tablet RxNorm: 357123 2 Tablet(s) PO daily 01/24/2016 Inactive start tomorrow Trulicity 0.75 mg/0.5 mL subcutaneous pen injector RxNorm: 6418512 0.75 Milligram( s) SQ QW 01/18/2016 06/30/2016 Inactive levothyroxine 88 mcg tablet RxNorm: 041900 TAKE ONE TABLET BY MOUTH ONCE DAILY 01/17/2016 07/14/2016 Inactive Trulicity 0.75 mg/0.5 mL subcutaneous pen injector RxNorm: 0124746 0.75 Milligram( s) SQ QW 12/03/2015 01/01/2016 Inactive Vimovo 500 mg-20 mg tablet,immediate and delay release RxNorm: 626351 1 Tablet(s) PO BID 12/03/2015 03/30/2016 Inactive metoprolol succinate ER 50 mg tablet,extended release 24 hr RxNorm: 039197 1 Tablet(s) PO daily 10/23/2015 05/19/2016 Inactive Trulicity 0.75 mg/0.5 mL subcutaneous pen injector RxNorm: 6421115 0.75 Milligram( s) SQ QW 09/17/2015 10/16/2015 Inactive Victoza 3-To 0.6 mg/0.1 mL (18 mg/3 mL) subcutaneous pen injector RxNorm: 424157 1.8 MILLIGRAM(S) SQ DAILY 07/16/201509/15 Inactive this is just a correction of her current dosing - she does not need a refill levothyroxine 88 mcg tablet RxNorm: 825577 1 TABLET(S) PO DAILY 07/16/2015 01/11/2016 Inactive metoprolol succinate ER 50 mg tablet,extended release 24 hr RxNorm: 978628 1 Tablet(s) PO daily 05/29/2015 10/22/2015 Inactive levothyroxine 88 mcg tablet RxNorm: 470323 1 Tablet(s) PO daily 04/17/2015 07/15/2015 Inactive levothyroxine 88 mcg tablet RxNorm: 499116 1 Tablet(s) PO daily 04/17/2015 04/16/2015 Inactive citalopram 40 mg tablet RxNorm: 635096 1 Tablet(s) PO daily 04/13/2016 Inactive metoprolol tartrate 25 mg tablet RxNorm: 793053 1 Tablet(s) BID 01/17/2015 05/28/2015 Inactive hydrochlorothiazide 25 mg tablet RxNorm: 854243 1 TABLET(S) PO DAILY 01/01/2015 12/26/2015 Inactive Kenalog 40 mg/mL suspension for injection RxNorm: 1271033 Milliliter(s) Inj 11/23/2014 11/23/2014 Inactive Kenalog 40 mg/mL suspension for injection RxNorm: 7158223 60 Milliliter(s) Inj 11/22/2014 11/22/2014 Inactive Zyrtec 10 mg tablet RxNorm: 4322562 1 Tablet(s) PO daily 11/2212/21/2014 Inactive prednisone 10 mg tablets in a dose pack RxNorm: 664112 1 Tablet(s) PO as directed 11/22/2014 05/28/2015 Inactive 6-5-4-3-2-1 Flagyl 500 mg tablet RxNorm: 955846 1 Tablet(s) PO TID 201411/20/2014 Inactive metoprolol tartrate 25 mg tablet RxNorm: 279121 1 Tablet(s) PO BID 09/06/2014 08/10/2016 Inactive metoprolol tartrate 25 mg tablet RxNorm: 900677 1 TABLET(S) PO BID PT TO START WITH 1/2 PILL TWICE DAILY X 1 WEEK, THEN INCREASE TO 1 PILL BID THEREAFTER 09/06/2014 01/16/2015 Inactive citalopram 20 mg tablet RxNorm: 147779 1 Tablet(s) PO daily 02/201503/13/2015 Inactive Victoza 3-To 0.6 mg/0.1 mL (18 mg/3 mL) subcutaneous pen injector RxNorm: 630137 1.8 MILLIGRAM(S) SQ DAILY 09/04/201405/31 Inactive this is just a correction of her current dosing - she does not need a refill metoprolol tartrate 25 mg tablet RxNorm: 375967 1 Tablet(s) PO BID pt to start with 1/2 pill twice daily x 1 week, then increase to 1 pill bid thereafter 08/04/2014 09/02/2014 Inactive Lantus Solostar 100 unit/mL (3 mL) subcutaneous insulin pen RxNorm: 008537 Unit( s) INJECT 10 UNITS SUBCUTANEOUSLY DAILY. DOCTOR WILL ADJUST MEDICATION BASED ON BLOOD GLUCOSE LEVELS 08/04/20142014 Inactive hydrochlorothiazide 25 mg tablet RxNorm: 489554 1 TABLET(S) PO DAILY 07/12/2014 01/24/2016 Inactive hydrochlorothiazide 25 mg tablet RxNorm: 021332 1 Tablet(s) PO daily 07/12/2014 12/31/2014 Inactive acyclovir 400 mg tablet RxNorm: 124213 1 Tablet(s) PO QID 05/0905/08/2014 Inactive acyclovir 400 mg tablet RxNorm: 257402 1 Tablet(s) PO QID 05/0905/15/2014 Inactive alprazolam 0.25 mg tablet RxNorm: 881889 TAKE 1 TABLET BY MOUTH TWICE DAILY NEEDED FOR ANXIETY 04/24/2014 05/23/2014 Inactive (Response to an electronic controlled substance refill request [id number]|1|0|1) metoprolol succinate ER 100 mg tablet,extended release 24 hr RxNorm: 510093 1 TABLET(S) PO DAILY TAKE 1 TABLET BY MOUTH DAILY 04/24/2014 08/03/2014 Inactive Cardizem LA 360 mg tablet,extended release RxNorm: 071175 1 TABLET(S) PO DAILY TAKE 1 TABLET BY MOUTH DAILY 04/24/2014 Inactive metformin ER 500 mg 24 hr tablet,extended release RxNorm: 713191 1 Tablet(s) PO daily 04/11/2014 08/03/2014 Inactive Lantus Solostar 100 unit/mL (3 mL) subcutaneous insulin pen RxNorm: 233234 INJECT 40 UNITS SUBCUTANEOUSLY DAILY. DOCTOR WILL ADJUST MEDICATION BASED ON BLOOD GLUCOSE LEVELS 03/20/20142014 Inactive Bentyl 10 mg capsule RxNorm: 397206 1 Capsule(s) PO TID PRN 02/201405/28/2015 Inactive potassium chloride ER 10 mEq tablet,extended release RxNorm: 572650 1 Tablet(s) PO daily 01/05/2014 01/11/2014 Inactive Lantus Solostar 100 unit/mL (3 mL) subcutaneous insulin pen RxNorm: 916001 45 Unit(s) SQ daily doctor to adjust medications based on blood glucose results 01/05/2014 12/02/2015 Inactive Diovan 320 mg tablet RxNorm: 167303 1 Tablet(s) PO daily 201308/03/2014 Inactive metformin ER 1,000 mg tablet,extended release 24hr RxNorm: 091855 1 Tablet(s) PO daily 10/26/2013 04/10/2014 Inactive Lantus Solostar 100 unit/mL (3 mL) subcutaneous insulin pen RxNorm: 240848 40 Unit(s) SQ daily doctor to adjust medications based on blood glucose results 10/10/2013 01/04/2014 Inactive alprazolam 0.25 mg tablet RxNorm: 019508 1 Tablet(s) PO BID 04/24/2014 Inactive Percocet 5 mg-325 mg tablet RxNorm: 2470867 1-2 Tablet(s) PO Q6 PRN 10/03/2013 05/28/2015 Inactive Celexa 40 mg tablet RxNorm: 623853 Tablet(s) PO TAKE 1 TABLET BY MOUTH DAILY 09/28/2013 09/03/2014 Inactive hydrochlorothiazide 25 mg tablet RxNorm: 554284 1 Tablet(s) PO daily 09/22/2013 06/18/2014 Inactive Lantus Solostar 100 unit/mL (3 mL) subcutaneous insulin pen RxNorm: 958685 35 Unit(s) SQ daily doctor to adjust medications based on blood glucose results 08/02/2013 10/09/2013 Inactive Cardizem LA 360 mg tablet,extended release RxNorm: 262768 1 Tablet(s) PO daily TAKE 1 TABLET BY MOUTH DAILY 07/18/2013 Inactive Cardizem LA 360 mg tablet,extended release RxNorm: 153049 Tablet(s) PO TAKE 1 TABLET BY MOUTH DAILY 07/18/20132014 Inactive metoprolol succinate ER 100 mg tablet,extended release 24 hr RxNorm: 093044 1 Tablet(s) PO daily TAKE 1 TABLET BY MOUTH DAILY 07/18/2013 04/13/2014 Inactive metoprolol succinate ER 100 mg tablet,extended release 24 hr RxNorm: 750380 Tablet (s) PO TAKE 1 TABLET BY MOUTH DAILY 07/18/2013 08/03/2014 Inactive Lantus Solostar 100 unit/mL (3 mL) subcutaneous insulin pen RxNorm: 891294 30 Unit(s) SQ daily doctor to adjust medications based on blood glucose results 07/04/2013 08/01/2013 Inactive Victoza 3-To 0.6 mg/0.1 mL (18 mg/3 mL) subcutaneous pen injector RxNorm: 784695 1.8 Milligram(s) SQ daily 06/30/201303/26 Inactive this is just a correction of her current dosing - she does not need a refill metformin ER 1,000 mg tablet,extended release 24hr RxNorm: 968603 1 Tablet(s) PO daily 06/30/2013 10/25/2013 Inactive Lantus Solostar 100 unit/mL (3 mL) subcutaneous insulin pen RxNorm: 636115 20 Unit(s) SQ daily doctor to adjust medications based on blood glucose results 06/30/2013 07/03/2013 Inactive Lantus Solostar 100 unit/mL (3 mL) subcutaneous insulin pen RxNorm: 691857 15 Unit(s) SQ daily doctor to adjust medications based on blood glucose results 06/23/2013 06/29/2013 Inactive Victoza 3-To 0.6 mg/0.1 mL (18 mg/3 mL) subcutaneous pen injector RxNorm: 021645 3mg Milliliter(s) SQ daily 90 days worth 06/20/2013 06/29/2013 Inactive hydrochlorothiazide 25 mg tablet RxNorm: 292710 1 Tablet(s) PO daily 06/13/2013 09/21/2013 Inactive ketorolac 60 mg/2 mL intramuscular solution RxNorm: 671191 2 Milliliter(s) IM 06/06/2013 06/06/2013 Inactive Lantus Solostar 100 unit/mL (3 mL) subcutaneous insulin pen RxNorm: 554656 10 Unit(s) SQ daily doctor to adjust medications based on blood glucose results 06/06/2013 06/22/2013 Inactive naproxen 500 mg tablet RxNorm: 273114 1 Tablet(s) PO BID 201308/04/2013 Inactive hydrochlorothiazide 25 mg tablet RxNorm: 375811 1 Tablet(s) PO daily 06/06/2013 06/12/2013 Inactive Victoza 3-To 0.6 mg/0.1 mL (18 mg/3 mL) subcutaneous pen injector RxNorm: 812216 3mg Milliliter(s) SQ daily 90 days worth 05/19/2013 06/19/2013 Inactive Diflucan 150 mg tablet RxNorm: 668258 1 Tablet(s) PO daily 05/12/2013 Inactive Diflucan 150 mg tablet RxNorm: 417005 1 Tablet(s) PO daily 05/19/2013 Inactive Cardizem LA 360 mg tablet,extended release RxNorm: 134757 Tablet(s) PO TAKE 1 TABLET BY MOUTH DAILY 04/22/20132013 Inactive metoprolol succinate ER 100 mg tablet,extended release 24 hr RxNorm: 121349 Tablet (s) PO TAKE 1 TABLET BY MOUTH DAILY 04/14/2013 07/17/2013 Inactive Diflucan 150 mg tablet RxNorm: 196770 1 Tablet(s) PO daily 03/28/2013 Inactive Diflucan 150 mg tablet RxNorm: 019798 1 Tablet(s) PO daily 03/21/2013 Inactive Diovan 320 mg tablet RxNorm: 702385 1 Tablet(s) PO daily 201212/09/2013 Inactive cefdinir 300 mg capsule RxNorm: 120992 1 Capsule(s) PO BID 02/25/2013 Inactive Phenergan with Codeine Syrup RxNorm: 5-10 Milliliter(s) PO Q6 PRN USE PRN FOR COUGH 02/21/2013 03/20/2013 Inactive 8 OUNCES Victoza 3-To 0.6 mg/0.1 mL (18 mg/3 mL) subcutaneous pen injector RxNorm: 696515 3mg Milliliter(s) SQ daily 90 days worth 12/09/2012 03/08/2013 Inactive scopolamine 1.5 mg transdermal 72 hour patch RxNorm: 517536 1 Patch TD Q72H 10/26/2012 01/04/2014 Inactive scopolamine 1.5 mg 72 hr Transderm Patch RxNorm: 355601 1 Patch TD Q72H 10/26/2012 10/25/2012 Inactive metformin ER 1,000 mg tablet,extended release 24hr RxNorm: 255924 1 Tablet(s) PO BID 10/11/2012 06/29/2013 Inactive Victoza 3-To 0.6 mg/0.1 mL (18 mg/3 mL) Sub-Q Pen Injector RxNorm: 037066 1.8 Milliliter(s) SQ daily 1.8 mg dose daily 09/23/2012 12/08/2012 Inactive Victoza 3-To 0.6 mg/0.1 mL (18 mg/3 mL) Sub-Q Pen Injector RxNorm: 277507 3.0 Milliliter(s) SQ daily 1.2 + 1.8 mg dose daily 201209/22/2012 Inactive Celexa 40 mg tablet RxNorm: 008242 1 Tablet(s) PO daily TAKE ONE TABLET BY MOUTH DAILY 09/21/2012 05/18/2013 Inactive Cardizem LA 360 mg tablet,extended release RxNorm: 769955 1 Tablet(s) PO daily 07/20/2012 04/15/2013 Inactive metoprolol succinate ER 100 mg tablet,extended release 24 hr RxNorm: 352714 1 Tablet(s) PO daily 07/20/2012 04/13/2013 Inactive Byetta 10 mcg/0.04 mL per dose Sub-Q Pen Injector RxNorm: 758131 1 Milliliter(s) SQ BID 06/18/2012 09/22/2012 Inactive Diovan 320 mg tablet RxNorm: 491322 1 Tablet(s) PO daily 201203/14/2013 Inactive metformin ER 1,000 mg tablet,extended release 24hr RxNorm: 928658 1 Tablet(s) PO BID 06/14/2012 09/11/2012 Inactive metformin ER 1,000 mg tablet,extended release 24hr RxNorm: 331779 1 Tablet(s) PO 06/14/2012 06/13/2012 Inactive Livalo 4 mg tablet RxNorm: 889629 1 Tablet(s) PO daily 201201/04/2014 Inactive Celexa 40 mg tablet RxNorm: 493391 1 Tablet(s) PO daily 201209/21/2012 Inactive Accu-Chek Instant Glucose Test Strips RxNorm: 1 Miscellaneous daily accucheck ratna glucometer 05/21/2012 06/14/2013 Inactive Diflucan 150 mg tablet RxNorm: 780126 1 Tablet(s) PO daily 05/26/2012 Inactive Flagyl 500 mg tablet RxNorm: 229868 1 Tablet(s) PO TID 201205/27/2012 Inactive aspirin 81 mg tablet RxNorm: 031593 1 Tablet(s) PO daily No Start Date Active Cardizem LA 360 mg tablet,extended release RxNorm: 922945 1 Tablet(s) PO daily No Start Date 07/19/2012 Inactive metformin ER 750 mg tablet,extended release 24 hr RxNorm: 589014 1 Tablet(s) PO TID No Start Date 06/13/2012 Inactive Zithromax Z-To 250 mg tablet RxNorm: 073358 Tablet(s) PO No Start Date 06/13/2012 Inactive Diovan 320 mg tablet RxNorm: 204107 1 Tablet(s) PO daily No Start Date 06/17/2012 Inactive Byetta 10 mcg/0.04 mL per dose Sub-Q Pen Injector RxNorm: 387136 1 Milliliter(s) SQ BID No Start Date 06/17/2012 Inactive Vivelle 0.05 mg/24 hr Transderm Patch RxNorm: 176179 1 Patch TD K1oouwe No Start Date 12/03/2015 Inactive Minivelle 0.0375 mg/24 hr transdermal patch RxNorm: 3355878 1 Patch TD BIW No Start Date 03/15/2018 Inactive Fish Oil 1,000 mg capsule RxNorm: 1 Capsule(s) PO BID No Start Date 05/29/2015 Inactive Celexa 40 mg tablet RxNorm: 794222 1 Tablet(s) PO daily No Start Date 06/09/2012 Inactive levothyroxine 100 mcg tablet RxNorm: 584576 1 Tablet(s) PO daily No Start Date 04/16/2015 Inactive Fish Oil 1,000 mg capsule RxNorm: 1 Capsule(s) PO daily No Start Date 12/02/2015 Inactive Vitamin B-12 1,000 mcg/mL oral drops RxNorm: 4890142 1 Milliliter(s) PO daily No Start Date 12/02/2015 Inactive metoprolol succinate ER 100 mg tablet,extended release 24 hr RxNorm: 656330 1 Tablet(s) PO daily No Start Date 2012 Inactive promethazine-codeine 6.25 mg-10 mg/5 mL Syrup RxNorm: 038219 5-10 Milliliter(s) PO Q6 PRN No Start Date 12/12/2012 Inactive Percocet 5 mg-325 mg tablet RxNorm: 0585242 1-2 Tablet(s) PO Q6 PRN No Start Date 10/02/2013 Inactive hydrochlorothiazide 25 mg tablet RxNorm: 870428 1 Tablet(s) PO daily No Start Date 06/05/2013 Inactive Victoza 2-To 0.6 mg/0.1 mL (18 mg/3 mL) subcutaneous pen injector RxNorm: 171712 Milligram(s) SQ 1.8mg daily No Start Date 09/13/2013 Inactive Livalo 4 mg tablet RxNorm: 246591 1 Tablet(s) PO daily No Start Date 06/09/2012 Inactive Medication Administered Medication Codes Instructions Start Date Status Kenalog 40 mg/mL suspension for injection RxNorm: 2682804 Milliliter 02/22/2018 No longer Active Kenalog 40 mg/mL suspension for injection RxNorm: 9985853 Milliliter 01/22/2016 No longer Active Kenalog 40 mg/mL suspension for injection RxNorm: 6714778 Milliliter 11/23/2014 No longer Active Kenalog 40 mg/mL suspension for injection RxNorm: 1141126 Milliliter 11/22/2014 No longer Active ketorolac 60 mg/2 mL intramuscular solution RxNorm: 780219 2Milliliter 06/06/2013 No longer Active Immunizations Vaccine Codes Date Status Influenza CVX: 141 01/07/2018 completed Influenza CVX: 141 01/05/2014 completed Influenza CVX: 141 04/22/2013 completed Influenza CVX: 141 02/04/2012 completed Assessments Condition Codes Effective Dates Type 2 diabetes mellitus without complications ICD-10: E11.9 ICD-9: 250.00 04/28/2018 Essential (primary) hypertension ICD-10: I10 ICD-9: 401.1 04/28/2018 Other specified symptoms and signs involving the circulatory and respiratory systems ICD-10: R09.89 ICD-9: 785.9 04/28/2018 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 ICD-9: 434.01 04/28/2018 Type 2 diabetes mellitus with hyperglycemia ICD-10: E11.65 ICD-9: 250.02 03/29/2018 Generalized anxiety disorder ICD-10: F41.1 ICD-9: 300.02 03/29/2018 Other allergic rhinitis ICD-10: J30.89 ICD-9: [...] For Visit Effective Dates Notes diabetes mellitus 04/28/2018 Hospital Follow Up 03/29/2018 [...] 29.5 pg 01/05/2018 Cbc With Differential Ord2 [place]% 5.5 % 01/05/2018 Cbc With Differential Ord2 [...] 1.46 K/ul 01/05/2018 Cbc With Differential Ord2 [place] ABS# 0.5 K/ul 01/05/2018 Cbc With Differential Ord2 Eos ABS# 0.2 K/ul 01/05/2018 Cbc With Differential Ord2 Baso ABS# 0.1 K/ul 01/05/2018 Free T4 Ywa132 FREE T4 0.92 ng/dL 01/05/2018 Lipid Ord30 CHOL 200 mg/dL 01/05/2018 Lipid Ord30 HDL 48.0 mg/dl 01/05/2018 Lipid Ord30 TRIG 143 mg/dL 01/05/2018 Lipid Ord30 LDL 123 mg/dL 01/05/2018 Lipid Ord30 C/HDL 4.2 Ratio 01/05/2018 Comp Metabolic Fen794 NA 142 mEq/L 01/05/2018 Comp Metabolic Pie719 K 3.9 mEq/L 01/05/2018 Comp Metabolic Anr194 CL 99 mEq/L 01/05/2018 Comp Metabolic Dot454 CO2 34.0 mEq/L 01/05/2018 Comp Metabolic Euv612 ANION GAP 13 01/05/2018 Comp Metabolic Qth852 GLUCOSE 205 mg/dL 01/05/2018 Comp Metabolic Pfm737 Creat 1.0 mg/dL 01/05/2018 Comp Metabolic Swi468 eGFR 65 ml/min/1.73m2 01/05/2018 Comp Metabolic Qsl950 BUN 12 mg/dL 01/05/2018 Comp Metabolic Hrm956 B/C Ratio 12.6 Ratio 01/05/2018 Comp Metabolic Tgq930 CALCIUM 9.5 mg/dL 01/05/2018 Comp Metabolic Cbz028 ALK PHOS 150 U/L 01/05/2018 Comp Metabolic Eet602 AST(SGOT) 16 U/L 01/05/2018 Comp Metabolic Oms443 ALT(SGPT) 15 U/L 01/05/2018 Comp Metabolic Jpf562 BILI T 0.6 mg/dL 01/05/2018 Comp Metabolic Cas474 ALBUMIN 3.9 g/dL 01/05/2018 Comp Metabolic Aop107 TPRO 6.6 g/dL 01/05/2018 Comp Metabolic Yfj363 GLOB 2.7 g/dL 01/05/2018 Comp Metabolic Vbj725 A/G Ratio 1.5 Ratio 01/05/2018 Comp Metabolic Jxr047 Osmo 289 mOsmo 01/05/2018 %Hba1C Tld252 % HbA1c 60085-2 10.9 % 01/05/2018 %Hba1C Ibk743 Gluc Ave 266 mg/dL 01/05/2018 Lipid Ord30 [...] 89.6 fl 09/29/2017 Cbc With Differential Ord2 [place]% 5.5 % 09/29/2017 Cbc With Differential Ord2 [...] 1.39 K/ul 09/29/2017 Cbc With Differential Ord2 [place] ABS# 0.6 K/ul 09/29/2017 Cbc With Differential Ord2 Eos ABS# 0.1 K/ul 09/29/2017 Cbc With Differential Ord2 Baso ABS# 0.1 K/ul 09/29/2017 Comp Metabolic Iuk340 NA 140 mEq/L 09/29/2017 Comp Metabolic Nzs473 K 3.4 mEq/L 09/29/2017 Comp Metabolic Cxm992 CL 96 mEq/L 09/29/2017 Comp Metabolic Zkx139 CO2 33.0 mEq/L 09/29/2017 Comp Metabolic Gbd714 ANION GAP 14 09/29/2017 Comp Metabolic Jll171 GLUCOSE 287 mg/dL 09/29/2017 Comp Metabolic Vcc805 Creat 0.8 mg/dL 09/29/2017 Comp Metabolic Bvg515 eGFR 77 ml/min/1.73m2 09/29/2017 Comp Metabolic Fxr303 BUN 13 mg/dL 09/29/2017 Comp Metabolic Gas864 B/C Ratio 15.9 Ratio 09/29/2017 Comp Metabolic Nec969 CALCIUM 9.4 mg/dL 09/29/2017 Comp Metabolic Wex687 ALK PHOS 147 U/L 09/29/2017 Comp Metabolic Qpi730 AST(SGOT) 17 U/L 09/29/2017 Comp Metabolic Gwb417 ALT(SGPT) 25 U/L 09/29/2017 Comp Metabolic Toj080 BILI T 0.7 mg/dL 09/29/2017 Comp Metabolic Djc715 ALBUMIN 4.2 g/dL 09/29/2017 Comp Metabolic Bey208 TPRO 6.8 g/dL 09/29/2017 Comp Metabolic Ilk558 GLOB 2.6 g/dL 09/29/2017 Comp Metabolic Aqj419 A/G Ratio 1.6 Ratio 09/29/2017 Comp Metabolic Cnt930 Osmo 290 mOsmo 09/29/2017 %Hba1C Dmz774 % HbA1c 42006-4 11.4 % 09/29/2017 %Hba1C Lfr393 Gluc Ave 280 mg/dL 09/29/2017 Free T4 Jbk335 FREE T4 1.14 ng/dL 09/29/2017 Tsh Ord6 TSH (3rd IS) 2.91 uIU/mL 09/29/2017 Lipid Ord30 CHOL 182 mg/dL 06/02/2017 Lipid Ord30 HDL 57.0 mg/dl 06/02/2017 Lipid Ord30 TRIG 126 mg/dL 06/02/2017 Lipid Ord30 LDL 100 mg/dL 06/02/2017 Lipid Ord30 C/HDL 3.2 Ratio 06/02/2017 %Hba1C Lhz106 % HbA1c 28263-0 8.2 % 06/02/2017 %Hba1C Tvg853 Gluc Ave 189 mg/dL 06/02/2017 Comp Metabolic Mwn652 NA 143 mEq/L 11/12/2016 Comp Metabolic Afy532 K 3.3 mEq/L 11/12/2016 Comp Metabolic Bzg469 CL 102 mEq/L 11/12/2016 Comp Metabolic Ysd276 CO2 30.0 mEq/L 11/12/2016 Comp Metabolic Xyx045 ANION GAP 14 11/12/2016 Comp Metabolic Jqn627 GLUCOSE 141 mg/dL 11/12/2016 Comp Metabolic Ugk740 Creat 0.8 mg/dL 11/12/2016 Comp Metabolic Fba858 eGFR 76 ml/min/1.73m2 11/12/2016 Comp Metabolic Kev032 BUN 11 mg/dL 11/12/2016 Comp Metabolic Quc246 B/C Ratio 13.3 Ratio 11/12/2016 Comp Metabolic Hvl867 CALCIUM 9.2 mg/dL 11/12/2016 Comp Metabolic Jrn433 ALK PHOS 116 U/L 11/12/2016 Comp Metabolic Jnh530 AST(SGOT) 21 U/L 11/12/2016 Comp Metabolic Obm070 ALT(SGPT) 28 U/L 11/12/2016 Comp Metabolic Hbk758 BILI T 0.5 mg/dL 11/12/2016 Comp Metabolic Wux625 ALBUMIN 3.8 g/dL 11/12/2016 Comp Metabolic Nsg299 TPRO 6.4 g/dL 11/12/2016 Comp Metabolic Qie543 GLOB 2.6 g/dL 11/12/2016 Comp Metabolic Efr350 A/G Ratio 1.5 Ratio 11/12/2016 Comp Metabolic Rtb843 Osmo 287 mOsmo 11/12/2016 Lipid Ord30 CHOL [...] 16.9 % 11/12/2016 Cbc With Differential Ord2 [place]% 5.8 % 11/12/2016 Cbc With Differential Ord2 [...] 1.47 K/ul 11/12/2016 Cbc With Differential Ord2 [place] ABS# 0.5 K/ul 11/12/2016 Cbc With Differential Ord2 Eos ABS# 0.2 K/ul 11/12/2016 Cbc With Differential Ord2 Baso ABS# 0.0 K/ul 11/12/2016 Tsh Ord6 hTSH II 1.59 uIU/mL 11/12/2016 %Hba1C Uzt992 % HbA1c 37793-2 7.5 % 11/12/2016 %Hba1C Aej899 Gluc Ave 169 mg/dL 11/12/2016 Free T4 Ejs172 FREE T4 0.91 ng/dL 11/12/2016 Cbc With [...] 29.7 pg 07/04/2016 Cbc With Differential Ord2 [place]% 7.1 % 07/04/2016 Cbc With Differential Ord2 [...] 1.10 K/ul 07/04/2016 Cbc With Differential Ord2 [place] ABS# 0.6 K/ul 07/04/2016 Cbc With Differential Ord2 Eos ABS# 0.1 K/ul 07/04/2016 Cbc With Differential Ord2 Baso ABS# 0.1 K/ul 07/04/2016 Lipid Ord30 CHOL 282 mg/dL 07/04/2016 Lipid Ord30 HDL 53.0 mg/dl 07/04/2016 Lipid Ord30 TRIG 136 mg/dL 07/04/2016 Lipid Ord30 LDL 202 mg/dL 07/04/2016 Lipid Ord30 C/HDL 5.3 Ratio 07/04/2016 Tsh Ord6 hTSH II 1.21 uIU/mL 07/04/2016 %Hba1C Ltm067 % HbA1c 81449-6 7.1 % 07/04/2016 %Hba1C Qhe740 Gluc Ave 157 mg/dL 07/04/2016 Comp Metabolic Tbq279 NA 141 mEq/L 07/04/2016 Comp Metabolic Jpk039 K 3.5 mEq/L 07/04/2016 Comp Metabolic Pdr265 CL 100 mEq/L 07/04/2016 Comp Metabolic Nfd858 CO2 34.0 mEq/L 07/04/2016 Comp Metabolic Yqv039 ANION GAP 11 07/04/2016 Comp Metabolic Eue790 GLUCOSE 144 mg/dL 07/04/2016 Comp Metabolic Tcu743 Creat 0.8 mg/dL 07/04/2016 Comp Metabolic Vmg380 eGFR 75 ml/min/1.73m2 07/04/2016 Comp Metabolic Zer542 BUN 10 mg/dL 07/04/2016 Comp Metabolic Fme375 B/C Ratio 11.9 Ratio 07/04/2016 Comp Metabolic Iuz740 CALCIUM 9.4 mg/dL 07/04/2016 Comp Metabolic Ksd551 ALK PHOS 116 U/L 07/04/2016 Comp Metabolic Kas810 AST(SGOT) 16 U/L 07/04/2016 Comp Metabolic Kni078 ALT(SGPT) 17 U/L 07/04/2016 Comp Metabolic Zfo630 BILI T 0.6 mg/dL 07/04/2016 Comp Metabolic Jgd586 ALBUMIN 4.3 g/dL 07/04/2016 Comp Metabolic Yvt421 TPRO 7.0 g/dL 07/04/2016 Comp Metabolic Tpb310 GLOB 2.7 g/dL 07/04/2016 Comp Metabolic Ypn878 A/G Ratio 1.6 Ratio 07/04/2016 Comp Metabolic Ajc608 Osmo 283 mOsmo 07/04/2016 Free T4 Sdb740 FREE T4 0.87 ng/dL 07/04/2016 Cbc With [...] 29.9 pg 03/31/2016 Cbc With Differential Ord2 [place]% 6.5 % 03/31/2016 Cbc With Differential Ord2 [...] 1.22 K/ul 03/31/2016 Cbc With Differential Ord2 [place] ABS# 0.4 K/ul 03/31/2016 Cbc With Differential Ord2 Eos ABS# 0.1 K/ul 03/31/2016 Cbc With Differential Ord2 Baso ABS# 0.0 K/ul 03/31/2016 Comp Metabolic Lhm928 NA 137 mEq/L 03/31/2016 Comp Metabolic Vdw102 K 3.3 mEq/L 03/31/2016 Comp Metabolic Rnf153 CL 101 mEq/L 03/31/2016 Comp Metabolic Wiw438 CO2 26.0 mEq/L 03/31/2016 Comp Metabolic Vmw851 ANION GAP 13 03/31/2016 Comp Metabolic Byo054 GLUCOSE 150 mg/dL 03/31/2016 Comp Metabolic Rsy819 Creat 0.9 mg/dL 03/31/2016 Comp Metabolic Vlt186 eGFR 71 ml/min/1.73m2 03/31/2016 Comp Metabolic Ssm883 BUN 13 mg/dL 03/31/2016 Comp Metabolic Had611 B/C Ratio 14.8 Ratio 03/31/2016 Comp Metabolic Tot495 CALCIUM 8.8 mg/dL 03/31/2016 Comp Metabolic Jsb296 ALK PHOS 103 U/L 03/31/2016 Comp Metabolic Pmg910 AST(SGOT) 18 U/L 03/31/2016 Comp Metabolic Aax847 ALT(SGPT) 21 U/L 03/31/2016 Comp Metabolic Lql166 BILI T 0.4 mg/dL 03/31/2016 Comp Metabolic Gqv790 ALBUMIN 3.9 g/dL 03/31/2016 Comp Metabolic Xwu099 TPRO 6.5 g/dL 03/31/2016 Comp Metabolic Noa088 GLOB 2.6 g/dL 03/31/2016 Comp Metabolic Cos593 A/G Ratio 1.5 Ratio 03/31/2016 Comp Metabolic Fhm781 Osmo 277 mOsmo 03/31/2016 Cbc With Differential [...] 30.4 pg 02/12/2016 Cbc With Differential Ord2 [place]% 7.0 % 02/12/2016 Cbc With Differential Ord2 [...] 2.42 K/ul 02/12/2016 Cbc With Differential Ord2 [place] ABS# 0.7 K/ul 02/12/2016 Cbc With Differential Ord2 Eos ABS# 0.2 K/ul 02/12/2016 Cbc With Differential Ord2 Baso ABS# 0.1 K/ul 02/12/2016 Comp Metabolic Csp076 NA 138 mEq/L 02/01/2016 Comp Metabolic Ggd291 K 4.3 mEq/L 02/01/2016 Comp Metabolic Oue268 CL 101 mEq/L 02/01/2016 Comp Metabolic Nfw751 CO2 27.0 mEq/L 02/01/2016 Comp Metabolic Usf682 ANION GAP 14 02/01/2016 Comp Metabolic Xua156 GLUCOSE 127 mg/dL 02/01/2016 Comp Metabolic Oeo839 Creat 1.0 mg/dL 02/01/2016 Comp Metabolic Scw831 eGFR 61 ml/min/1.73m2 02/01/2016 Comp Metabolic Hpg773 BUN 21 mg/dL 02/01/2016 Comp Metabolic Qah752 B/C Ratio 20.8 Ratio 02/01/2016 Comp Metabolic Hsi325 CALCIUM 9.1 mg/dL 02/01/2016 Comp Metabolic Xye818 ALK PHOS 105 U/L 02/01/2016 Comp Metabolic Sml655 AST(SGOT) 14 U/L 02/01/2016 Comp Metabolic Kaw964 ALT(SGPT) 26 U/L 02/01/2016 Comp Metabolic Wnx045 BILI T 0.4 mg/dL 02/01/2016 Comp Metabolic Cuv904 ALBUMIN 3.9 g/dL 02/01/2016 Comp Metabolic Aor034 TPRO 6.7 g/dL 02/01/2016 Comp Metabolic Ozx859 GLOB 2.8 g/dL 02/01/2016 Comp Metabolic Ent286 A/G Ratio 1.4 Ratio 02/01/2016 Comp Metabolic Eqj680 Osmo 280 mOsmo 02/01/2016 Tsh Ord6 hTSH [...] 91.5 fl 02/01/2016 Cbc With Differential Ord2 [place]% 5.8 % 02/01/2016 Cbc With Differential Ord2 [...] 3.74 K/ul 02/01/2016 Cbc With Differential Ord2 [place] ABS# 0.8 K/ul 02/01/2016 Cbc With Differential Ord2 Eos ABS# 0.2 K/ul 02/01/2016 Cbc With Differential Ord2 Baso ABS# 0.0 K/ul 02/01/2016 %Hba1C Dyc912 % HbA1c 78018-2 6.9 % 01/07/2016 %Hba1C Dfq115 Gluc Ave 151 mg/dL 01/07/2016 Tsh Ord6 hTSH II 0.99 uIU/mL 11/08/2015 Free T4 Jgc055 FREE T4 1.01 ng/dL 11/08/2015 %Hba1C Trd571 % HbA1c 81461-3 6.6 % 09/14/2015 %Hba1C Qci140 Gluc Ave 143 mg/dL 09/14/2015 Lipid Ord30 [...] 29.9 pg 09/12/2015 Cbc With Differential Ord2 [place]% 5.9 % 09/12/2015 Cbc With Differential Ord2 [...] 1.48 K/ul 09/12/2015 Cbc With Differential Ord2 [place] ABS# 0.4 K/ul 09/12/2015 Cbc With Differential Ord2 Eos ABS# 0.1 K/ul 09/12/2015 Cbc With Differential Ord2 Baso ABS# 0.0 K/ul 09/12/2015 Cbc With Differential Ord2 New Analyzer Notice Please note new ref ranges starting 05-09-2015 due to implemntation of new five part differential hematolgy analyzer. 09/12/2015 Comp Metabolic Jgw444 NA 139 mEq/L 09/12/2015 Comp Metabolic Wqu877 K 3.7 mEq/L 09/12/2015 Comp Metabolic Vur667 CL 102 mEq/L 09/12/2015 Comp Metabolic Vap801 CO2 30.0 mEq/L 09/12/2015 Comp Metabolic Iaw443 ANION GAP 11 09/12/2015 Comp Metabolic Iyp864 GLUCOSE 135 mg/dL 09/12/2015 Comp Metabolic Xwp183 Creat 0.8 mg/dL 09/12/2015 Comp Metabolic Xki306 eGFR 86 ml/min/1.73m2 09/12/2015 Comp Metabolic Xtr014 BUN 10 mg/dL 09/12/2015 Comp Metabolic Psj053 B/C Ratio 13.3 Ratio 09/12/2015 Comp Metabolic Fvd101 CALCIUM 8.8 mg/dL 09/12/2015 Comp Metabolic Lml724 ALK PHOS 95 U/L 09/12/2015 Comp Metabolic Luj374 AST(SGOT) 18 U/L 09/12/2015 Comp Metabolic Dif725 ALT(SGPT) 20 U/L 09/12/2015 Comp Metabolic Kmz051 BILI T 0.5 mg/dL 09/12/2015 Comp Metabolic Mmo665 ALBUMIN 3.9 g/dL 09/12/2015 Comp Metabolic Qvf117 TPRO 6.5 g/dL 09/12/2015 Comp Metabolic Uad163 GLOB 2.6 g/dL 09/12/2015 Comp Metabolic Gsk903 A/G Ratio 1.5 Ratio 09/12/2015 Comp Metabolic Ebt019 Osmo 279 mOsmo 09/12/2015 Tsh Ord6 hTSH II 0.81 uIU/mL 08/01/2015 Free T4 Exn865 FREE T4 0.82 ng/dL 08/01/2015 Vitamin B12 013617 VITAMIN B12 TEST NOT PERFORMED pg/mL 2015 Vitamin D 25 Oh Zas2280 VITAMIN D, 25 HYDROXY 50.78 ng/mL Comp Metabolic Ams565 NA 142 mEq/L 04/12/2015 Comp Metabolic Cfd960 K 3.5 mEq/L 04/12/2015 Comp Metabolic Dwd259 CL 102 mEq/L 04/12/2015 Comp Metabolic Blr272 CO2 32.0 mEq/L 04/12/2015 Comp Metabolic Wvx016 ANION GAP 12 04/12/2015 Comp Metabolic Eow280 GLUCOSE 130 mg/dL 04/12/2015 Comp Metabolic Fjl879 Creat 0.8 mg/dL 04/12/2015 Comp Metabolic Dqz223 eGFR 78 ml/min/1.73m2 04/12/2015 Comp Metabolic Luf216 BUN 12 mg/dL 04/12/2015 Comp Metabolic Hxk490 B/C Ratio 14.6 Ratio 04/12/2015 Comp Metabolic Zln331 CALCIUM 8.9 mg/dL 04/12/2015 Comp Metabolic Ily630 ALK PHOS 95 U/L 04/12/2015 Comp Metabolic Bmo778 AST(SGOT) 21 U/L 04/12/2015 Comp Metabolic Hjq557 ALT(SGPT) 23 U/L 04/12/2015 Comp Metabolic Eth792 BILI T 0.4 mg/dL 04/12/2015 Comp Metabolic Rfx930 ALBUMIN 3.9 g/dL 04/12/2015 Comp Metabolic Erk777 TPRO 6.3 g/dL 04/12/2015 Comp Metabolic Tsk409 GLOB 2.4 g/dL 04/12/2015 Comp Metabolic Jqa446 A/G Ratio 1.6 Ratio 04/12/2015 Comp Metabolic Ntj557 Osmo 285 mOsmo 04/12/2015 Tsh Ord6 hTSH II 0.18 uIU/mL 04/12/2015 %Hba1C Azc537 % HbA1c 89573-9 6.4 % 04/12/2015 %Hba1C Kdj165 Gluc Ave 137 mg/dL 04/12/2015 Free T4 Lbc600 FREE T4 1.13 ng/dL 04/12/2015 Cbc With [...] Ord2 RDW 14.6 % 11/14/2014 Comp Metabolic Pxe796 NA 137 mEq/L 11/14/2014 Comp Metabolic Nhe625 K 3.6 mEq/L 11/14/2014 Comp Metabolic Vxr016 CL 98 mEq/L 11/14/2014 Comp Metabolic Gmx789 CO2 31.0 mEq/L 11/14/2014 Comp Metabolic Rss311 ANION GAP 12 11/14/2014 Comp Metabolic Iiq294 GLUCOSE 110 mg/dL 11/14/2014 Comp Metabolic Bhj584 Creat 0.8 mg/dL 11/14/2014 Comp Metabolic Dct646 eGFR 81 ml/min/1.73m2 11/14/2014 Comp Metabolic Vti724 BUN 14 mg/dL 11/14/2014 Comp Metabolic Thr505 B/C Ratio 17.7 Ratio 11/14/2014 Comp Metabolic Deq141 CALCIUM 9.2 mg/dL 11/14/2014 Comp Metabolic Axi886 ALK PHOS 135 U/L 11/14/2014 Comp Metabolic Gny237 AST(SGOT) 17 U/L 11/14/2014 Comp Metabolic Nms255 ALT(SGPT) 20 U/L 11/14/2014 Comp Metabolic Dal066 BILI T 0.3 mg/dL 11/14/2014 Comp Metabolic Nyq578 ALBUMIN 3.7 g/dL 11/14/2014 Comp Metabolic Efr708 TPRO 6.5 g/dL 11/14/2014 Comp Metabolic Awt650 GLOB 2.8 g/dL 11/14/2014 Comp Metabolic Ovh258 A/G Ratio 1.3 Ratio 11/14/2014 Comp Metabolic Dfp000 Osmo 275 mOsmo 11/14/2014 CHEM 14 3907174 AST 18 U/L 04/11/2014 CHEM 14 1946654 ALT 25 IU/L 04/11/2014 CHEM 14 5574282 BUN 13 MG/DL 04/11/2014 CHEM 14 9299972 ALBUMIN 4.1 GM/DL 04/11/2014 CHEM 14 3886788 CHLORIDE 103 MMOL/L 04/11/2014 CHEM 14 3910597 BILI TOT 0.3 MG/DL 04/11/2014 CHEM 14 7244280 ALK PHOS 107 U/L 04/11/2014 CHEM 14 0865187 SODIUM 139 MMOL/L 04/11/2014 CHEM 14 6002155 CREATININE 0.85 MG/DL 04/11/2014 CHEM 14 9982516 CALCIUM 9.2 MG/DL 04/11/2014 CHEM 14 6883551 POTASSIUM 3.7 MMOL/L 04/11/2014 CHEM 14 1267078 PROT TOT 7.1 GM/DL 04/11/2014 CHEM 14 7265207 GLUCOSE 85 MG/DL 04/11/2014 CHEM 14 8286236 BICARB 28 MMOL/L 04/11/2014 CHEM 14 5235352 ANION GAP 8 MEQ/L 04/11/2014 GFR CALC 0444528 GFR AA >60 ML/MIN 04/11/2014 GFR CALC 7907479 GFR NON-AA >60 ML/MIN 04/11/2014 URINALYSIS NONAUTO W/O SCOPE 17792 Specific [place] 1.020 DateTime(Free Text in Aprima) URINALYSIS NONAUTO W/O SCOPE 58699 PH 5.0 DateTime(Free Text in Aprima) URINALYSIS NONAUTO W/O SCOPE 06435 Protein neg DateTime( Free Text in Aprima) URINALYSIS NONAUTO W/O SCOPE 97966 Blood neg DateTime(Free Text in Aprima) URINALYSIS NONAUTO W/O SCOPE 21854 Bilirubin neg DateTime(Free Text in Aprima) URINALYSIS NONAUTO W/O SCOPE 78314 Ketones small DateTime(Free Text in Aprima) URINALYSIS NONAUTO W/O SCOPE 70976 Urobilinogen neg DateTime(Free Text in Aprima) URINALYSIS NONAUTO W/O SCOPE 51859 Nitrite neg DateTime( Free Text in Aprima) URINALYSIS NONAUTO W/O SCOPE 44968 Leukocytes neg DateTime(Free Text in Aprima) Review of Systems System Result Effective Dates Constitutional recent illness 04/28/2018 Constitutional No chills [...] clear 04/28/2018 None Full Exam - General 1995 Ears/Nose/Throat [...] CPT-4: J3301 02/22/2018 IMMUNIZATION ADMIN CPT -4: 54092 01/07/2018 FLU VAC NO PRSV 4 SHAKILA 3 YRS+ CPT-4: 91062 01/07/2018 TRIAMCINOLONE ACET INJ NOS CPT-4: J3301 01/22/2016 TRIAMCINOLONE ACET INJ NOS CPT-4: J3301 11/23/2014 THER/PROPH/DIAG INJ SC/IM CPT-4: 66122 11/23/2014 THER/PROPH/DIAG INJ SC/IM CPT-4: 81675 11/22/2014 TRIAMCINOLONE ACET INJ NOS CPT-4: J3301 11/22/2014 URINALYSIS NONAUTO W/O SCOPE CPT-4: 71168 11/14/2014 ROUTINE VENIPUNCTURE CPT-4: 73365 04/11/2014 CHEM 14 (COMPREHEN METABOLIC PANEL) CPT-4: 15634 04/11/2014 IMMUNIZATION ADMIN CPT -4: 53794 01/05/2014 FLU VAC NO PRSV 4 SHAKILA 3 YRS+ Assigned to/Alyssa Thomas CPT-4: 03573Vyxryno 01/05/2014 FOOT EXAM PERFORMED SNOMED CT: 58436581 CPT-4: 2028F 06/20/2013 THER/PROPH/DIAG INJ SC/IM CPT-4: 01345 06/06/2013 KETOROLAC TROMETHAMINE INJ CPT-4: J1885 06/06/2013 Vital Signs Date Vital 04/28/2018 Blood Pressure 1: 138/78 Code : 8480-6 BMI: 30.0 Code : 22189-0 Heart Rate 1 : 89 bpm Height: 5'6" SpO2: 99% Weight: 183 lbs 03/29/2018 Blood Pressure 1: 140/72 Code : 8480-6 BMI: 31.8 Code : 55562-8 Heart Rate 1 : 78 bpm Height: 5'6" SpO2: 99% Weight: 194 lbs 02/22/2018 Blood Pressure 1: 130/68 Code : 8480-6 BMI: 31.5 Code : 23846-7 Heart Rate 1 : 91 bpm Height: 5'6" SpO2: 98% Weight: 192 lbs 01/07/2018 Blood Pressure 1: 138/82 Code : 8480-6 BMI: 31.3 Code : 81170-8 Heart Rate 1 : 95 bpm Height: 5'6" SpO2: 98% Weight: 191 lbs 10/01/2017 Blood Pressure 1: 138/88 Code : 8480-6 BMI: 30.3 Code : 65906-6 Heart Rate 1 : 80 bpm Height: 5'6" SpO2: 98% Weight: 185 lbs 06/08/2017 Blood Pressure 1: 148/92 Code : 8480-6 BMI: 31.5 Code : 58231-7 Heart Rate 1 : 88 bpm Height: 5'6" SpO2: 98% Weight: 192 lbs 11/12/2016 Blood Pressure 1: 140/80 Code : 8480-6 BMI: 29.7 Code : 18851-4 Heart Rate 1 : 82 bpm Height: 5'6" SpO2: 96% Weight: 181 lbs 08/11/2016 Blood Pressure 1: 152/88 Code : 8480-6 BMI: 30.3 Code : 07124-0 Heart Rate 1 : 73 bpm Height: 5'6" SpO2: 98% Weight: 185 lbs 03/31/2016 Blood Pressure 1: 124/86 Code : 8480-6 BMI: 30.2 Code : 76109-8 Heart Rate 1 : 86 bpm Height: 5'6" SpO2: 95% Weight: 184 lbs 02/01/2016 Blood Pressure 1: 112/60 Code : 8480-6 BMI: 29.5 Code : 50065-8 Heart Rate 1 : 68 bpm Height: 5'6" SpO2: 98% Weight: 180 lbs 01/22/2016 Blood Pressure 1: 132/80 Code : 8480-6 BMI: 29.8 Code : 02343-8 Heart Rate 1 : 76 bpm Height: 5'6" SpO2: 98% Temperature: 35.7 (C) / 96.2 (F) Weight: 182 lbs 01/07/2016 Blood Pressure 1: 134/86 Code : 8480-6 BMI: 30.0 Code : 18791-5 Heart Rate 1 : 78 bpm Height: 5'6" SpO2: 98% Weight: 183 lbs 12/03/2015 Blood Pressure 1: 146/86 Code : 8480-6 BMI: 30.2 Code : 34227-2 Heart Rate 1 : 93 bpm Height: 5'6" SpO2: 98% Weight: 184 lbs 8 oz 09/17/2015 Blood Pressure 1: 140/88 Code : 8480-6 BMI: 29.5 Code : 59601-4 Heart Rate 1 : 77 bpm Height: 5'6" SpO2: 98% Weight: 180 lbs 05/29/2015 Blood Pressure 1: 140/80 Code : 8480-6 BMI: 28.2 Code : 32233-2 Heart Rate 1 : 83 bpm Height: 5'6" SpO2: 98% Weight: 172 lbs 12/12/2014 Blood Pressure 1: 150/92 Code : 8480-6 BMI: 28.2 Code : 22139-8 Heart Rate 1 : 91 bpm Height: 5'6" SpO2: 96% Weight: 172 lbs 11/23/2014 Blood Pressure 1: 138/92 Code : 8480-6 11/22/2014 Blood Pressure 1: 126/80 Code : 8480-6 BMI: 28.7 Code : 49129-4 Heart Rate 1 : 86 bpm Height: 5'6" SpO2: 97% Weight: 175 lbs 11/14/2014 Blood Pressure 1: 130/82 Code : 8480-6 BMI: 28.7 Code : 01854-4 Heart Rate 1 : 72 bpm Height: 5'6" Temperature: 36.3 (C) / 97.4 (F) Weight: 175 lbs 09/04/2014 Blood Pressure 1: 128/82 Code : 8480-6 BMI: 30.3 Code : 27736-0 Heart Rate 1 : 80 bpm Height: 5'6" Weight: 185 lbs 08/04/2014 Blood Pressure 1: 140/82 Code : 8480-6 BMI: 31.3 Code : 71883-5 Heart Rate 1 : 92 bpm Height: 5'6" SpO2: 99% Weight: 191 lbs 04/11/2014 Blood Pressure 1: 142/80 Code : 8480-6 BMI: 34.7 Code : 16922-9 Heart Rate 1 : 74 bpm Height: 5'6" Weight: 212 lbs 01/05/2014 Blood Pressure 1: 144/84 Code : 8480-6 BMI: 36.7 Code : 29812-2 Heart Rate 1 : 89 bpm Height: 5'6" SpO2: 97% Weight: 224 lbs 10/10/2013 Blood Pressure 1: 112/70 Code : 8480-6 BMI: 36.1 Code : 70004-1 Heart Rate 1 : 104 bpm Height: 5'6" Weight: 220 lbs 08/02/2013 Blood Pressure 1: 178/98 Code : 8480-6 BMI: 36.4 Code : 17874-4 Heart Rate 1 : 100 bpm Height: 5'6" Weight: 222 lbs 06/30/2013 Blood Pressure 1: 142/82 Code : 8480-6 BMI: 35.9 Code : 79566-7 Heart Rate 1 : 86 bpm Height: 5'6" SpO2: 98% Temperature: 36.3 (C) / 97.3 (F) Weight: 219 lbs 06/20/2013 Blood Pressure 1: 126/78 Code : 8480-6 BMI: 36.2 Code : 63525-1 Heart Rate 1 : 76 bpm Height: 5'6" Weight: 221 lbs 06/06/2013 Blood Pressure 1: 158/98 Code : 8480-6 BMI: 36.2 Code : 54170-4 Heart Rate 1 : 92 bpm Height: 5'6" Weight: 221 lbs 02/21/2013 Blood Pressure 1: 128/82 Code : 8480-6 BMI: 35.2 Code : 11345-8 Heart Rate 1 : 80 bpm Height: 5'6" Temperature: 35.7 (C) / 96.3 (F) Weight: 215 lbs 12/13/2012 Blood Pressure 1: 132/86 Code : 8480-6 BMI: 35.7 Code : 61897-5 Heart Rate 1 : 80 bpm Height: 5'6" Weight: 218 lbs 09/23/2012 Blood Pressure 1: 132/90 Code : 8480-6 BMI: 36.2 Code : 10613-7 Heart Rate 1 : 84 bpm Height: 5'6" Weight: 221 lbs 06/14/2012 Blood Pressure 1: 134/84 Code : 8480-6 Heart Rate 1: 84 bpm Respiratory Rate : 20 bpm Weight: 221 lbs 05/21/2012 Blood Pressure 1: 136/80 Code : 8480-6 BMI: 35.9 Code : 23136-4 Heart Rate 1 : 20 bpm Height: 5'6" Respiratory Rate: 16 bpm Temperature: 36.7 ( C) / 98.0 (F) Weight: 219 lbs Functional Status No Functional Status data History of Present Illness Symptom Name Status Result Effective Date Notes Quality insulin dependent 04/28/2018 None Severity moderate [...] surgery was canceled. She was referred to [facility] at acute renal failure Onset of Symptom [...] diabetes mellitus Exercise minimal exercise 01/05/2014 starting [facility] diabetes mellitus Pertinent Findings Denies dyspnea 01/05/2014 [...] in the larynx 02/21/2013 patient went to [facility] thursday. was given a zpack, prednisone, [...] Directive data Encounters Encounter Performer Location Codes ([id number]) [id number] EST. 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 CPT-4: 15862 04/28/2018 ([id number]) 38910 EST. 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 CPT-4: 60636 03/29/2018 [id number] EST. PATIENT, LEVEL IV Diagnosis: Other acute sinusitis[ICD10: J01.80] Diagnosis: Other allergic rhinitis[ICD10: J30.89] Diagnosis: Actinic keratosis[ICD10: L57.0] Diagnosis: Pain in left forearm[ICD10: M79.632] Diagnosis: Generalized anxiety disorder[ICD10: F41.1] Diagnosis: Major depressive disorder, single episode, moderate[ICD10: F32.1] Tiffanie Curran MD, [facility] CPT-4: 29765 02/22/2018 [id number] EST. PATIENT, LEVEL IV Diagnosis: Type 2 diabetes mellitus with hyperglycemia[ICD10: E11.65] Diagnosis: Other specified hypothyroidism[ICD10: E03.8] Diagnosis: VACCIN FOR INFLUENZA[ICD10: Z23] Tiffanie Curran MD, [facility] CPT- 4: 84564 01/07/2018 [id number] EST. PATIENT, LEVEL IV Diagnosis: Type 2 diabetes mellitus with hyperglycemia[ICD10: E11.65] Diagnosis: Other specified hypothyroidism[ICD10: E03.8] Diagnosis: Other allergic rhinitis[ICD10: J30.89] Tiffanie Curran MD, [facility] CPT-4: 52679 10/01/2017 [id number] EST. PATIENT, LEVEL IV Diagnosis: Type 2 diabetes mellitus with hyperglycemia[ICD10: E11.65] Diagnosis: Hypothyroidism, unspecified[ICD10: E03.9] Diagnosis: Generalized anxiety disorder[ICD10: F41.1] Diagnosis: Major depressive disorder, single episode, moderate[ICD10: F32.1] Tiffanie Curran MD, [facility] CPT-4: 51006 06/08/2017 ([id number]) PREV VISIT EST AGE 40-64 Diagnosis: Encounter for general adult medical examination without abnormal findings[ICD10: Z00.00] Eleonora Curran MD, [facility] CPT-4: 20544 11/12/2016 ([id number]) 37837 EST. PATIENT, LEVEL III Diagnosis: Allergic rhinitis due to pollen[ICD10: J30.1] Diagnosis: Acute upper respiratory infection, unspecified[ICD10: J06.9] Talya Curran MD, [facility] CPT-4: 46531 09/16/2016 ([id number]) 67610 EST. PATIENT, LEVEL IV Diagnosis: Essential (primary) hypertension[ICD10: I10] Diagnosis: Type 2 diabetes mellitus without complications[ICD10: E11.9] Diagnosis: Functional diarrhea[ICD10: K59.1] Diagnosis: Mixed hyperlipidemia[ICD10: E78.2] Eleonora Curran MD, [facility] CPT-4: 43746 08/11/2016 ([id number]) 84395 EST. PATIENT, LEVEL III Diagnosis: Cramp and spasm[ICD10: R25.2] Diagnosis: Nausea[ICD10: R11.0] Talya Curran MD, [facility] CPT-4: 79866 03/31/2016 ([id number]) 98915 EST. PATIENT, LEVEL IV Diagnosis: Cough[ICD10: R05] Diagnosis: Essential (primary) hypertension[ICD10: I10] Diagnosis: Hypothyroidism, unspecified[ICD10: E03.9] Diagnosis: Gastro-esophageal reflux disease without esophagitis[ICD10: K21.9] Talya Curran MD, [facility] CPT-4: 18751 02/01/2016 ([id number]) 43342 EST. PATIENT, LEVEL III Diagnosis: Cough[ICD10: R05] Diagnosis: Acute bronchitis, unspecified[ICD10: J20.9] Talya Curran MD, [facility] CPT-4: 37511 01/22/2016 ([id number]) 67908 EST. PATIENT, LEVEL IV Diagnosis: Type 2 diabetes mellitus without complications[ICD10: E11.9] Diagnosis: Essential (primary) hypertension[ICD10: I10] Diagnosis: Dysphagia, pharyngeal phase[ICD10: R13.13] Eleonora Curran MD [facility] CPT-4: 18864 01/07/2016 ([id number]) 79747 EST. PATIENT, LEVEL IV Diagnosis: Type 2 diabetes mellitus without complications[ICD10: E11.9] Diagnosis: Essential (primary) hypertension[ICD10: I10] Diagnosis: Pain in right knee[ICD10: M25.561] Eleonora Curran MD [facility] CPT-4: 76519 12/03/2015 ([id number]) 65361 EST. PATIENT, LEVEL IV Diagnosis: Type 2 diabetes mellitus with hyperglycemia[ICD10: E11.65] Diagnosis: Essential (primary) hypertension[ICD10: I10] Eleonora Curran MD [facility] CPT-4: 86101 09/17/2015 ([id number]) 82423 EST. 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 CPT-4: 25040 05/29/2015 ([id number]) 26550 EST. PATIENT, LEVEL III Diagnosis: Diabetes mellitus, type II[ICD9: 250.00] Diagnosis: ESSENTIAL HYPERTENSION[ICD9: 401.9] Diagnosis: ESOPHAGEAL REFLUX[ICD9: 530.81] Eleonora Curran MD [facility] CPT- 4: 66451 12/12/2014 ([id number]) 84661 EST. PATIENT, LEVEL III Diagnosis: ALLERGIC URTICARIA[ICD9: 708.0] Kristan Curran MD [facility] CPT-4 : 78499 11/22/2014 ([id number]) 64611 EST. PATIENT, LEVEL III Diagnosis: Abdominal pain[ICD9: 789.00] Diagnosis: Status post gastric surgery[ICD9: V45.89] Kristan Curran MD [facility] CPT-4: 10897 11/14/2014 ([id number]) 53409 EST. PATIENT, LEVEL III Diagnosis: Diabetes mellitus, type II[ICD9: 250.00] Diagnosis: ESSENTIAL HYPERTENSION[ICD9: 401.9] Diagnosis: OBESITY[ICD9: 278.00] Diagnosis: ESOPHAGEAL REFLUX[ICD9: 530.81] Eleonora Curran MD, [facility] CPT- 4: 63351 09/04/2014 ([id number]) 97905 EST. PATIENT, LEVEL IV Diagnosis: Diabetes mellitus, type II[ICD9: 250.00] Diagnosis: ESSENTIAL HYPERTENSION[ICD9: 401.9] Diagnosis: OBESITY[ICD9: 278.00] Eleonora Curran MD, [facility] CPT-4: 28825 08/04/2014 ([id number]) 74474 EST. PATIENT, LEVEL IV Diagnosis: Thyroid nodule[ICD9: 241.0] Diagnosis: Decreased renal function[ICD9: 593.9] Diagnosis: Diabetes mellitus, type II[ICD9: 250.00] Talya Curran MD, [facility] CPT-4: 69899 04/11/2014 ([id number]) 51722 EST. PATIENT, LEVEL IV Diagnosis: Chronic diarrhea[ICD9: 787.91] Diagnosis: DM W/O COMPLICATION TYPE II, UNCONTROLLED[ICD9: 250.02] Diagnosis: ESSENTIAL HYPERTENSION[ICD9: 401.9] Talya Curran MD, [facility] CPT-4: 67439 01/05/2014 21505 EST. PATIENT, LEVEL IV Diagnosis: DM W/O COMPLICATION TYPE II, UNCONTROLLED[ICD9: 250.02] Diagnosis: OBESITY[ICD9: 278.00] Diagnosis: Generalized anxiety disorder[ICD9: 300.02] Diagnosis: ESSENTIAL HYPERTENSION[ICD9: 401.9] Eleonora Curran MD, [facility] CPT-4: 22450 10/10/2013 ([id number]) 87854 EST. PATIENT, LEVEL IV Diagnosis: DM W/O COMPLICATION TYPE II, UNCONTROLLED[ICD9: 250.02] Diagnosis: Shoulder pain, right[ICD9: 719.41] Diagnosis: INSOMNIA NOS[ICD9: 780.52] Eleonora Curran MD, [facility] CPT- 4: 01248 08/02/2013 ([id number]) 68722 EST. PATIENT, LEVEL IV Diagnosis: DM W/O COMPLICATION TYPE II, UNCONTROLLED[SNOMED: 31705219] Diagnosis: COUGH[ICD9: 786.2] Diagnosis: MYALGIA AND MYOSITIS[ICD9: 729.1] Eleonora Curran MD [facility] CPT-4: 88347 06/30/2013 ([id number]) 13471 EST. PATIENT, LEVEL III Diagnosis: DM W/O COMPLICATION TYPE II, UNCONTROLLED[SNOMED: 32746574] Eleonora Curran MD [facility] CPT-4: 57576 06/20/2013 ([id number]) 26825 EST. PATIENT, LEVEL IV Diagnosis: DM W/O COMPLICATION TYPE II, UNCONTROLLED[SNOMED: 13980013] Eleonora Curran MD [facility] CPT-4: 30177 06/06/2013 ([id number]) 55310 EST. PATIENT, LEVEL IV Diagnosis: Acute bronchitis[ICD9: 466.0] Diagnosis: Cough[ICD9: 786.2] Diagnosis: Myalgia[ICD9: 729.1] Eleonora Curran MD [facility] CPT-4: 07529 02/21/2013 29323 EST. PATIENT, LEVEL IV Diagnosis: DM W/O COMPLICATION TYPE II, UNCONTROLLED[SNOMED: 75219697] Diagnosis: OBESITY[ICD9: 278.00] Diagnosis: Dietary counseling and surveillance[ICD9: V65.3] Eleonora Curran MD [facility] CPT-4: 19665 12/13/2012 ([id number]) 54470 EST. PATIENT, LEVEL IV Diagnosis: DM W/O COMPLICATION TYPE II, UNCONTROLLED[SNOMED: 70603041] Diagnosis: HYPERLIPIDEMIA[ICD9: 272.4] Eleonora Curran MD [facility] CPT- 4: 24917 09/23/2012 [id number]) 52986 EST. PATIENT, LEVEL IV Diagnosis: Diabetes mellitus type 2, uncontrolled[SNOMED: 76008286] Diagnosis: Hyperlipidemia[ICD9: 272.4] Diagnosis: ESSENTIAL HYPERTENSION[SNOMED: 55544979] Talya Curran MD, [facility] CPT-4: 24669 06/14/2012 OFFICE VISIT, NEW - LEVEL 3 Diagnosis: Influenza[ICD9: 487.1] Diagnosis: COUGH[ICD9: 786.2] Diagnosis: FEVER NOS[ICD9: 780.60] Diagnosis: Diarrhea[ICD9: 787.91] Diagnosis: Diabetes mellitus, type II[SNOMED: 594459435] [facility] CPT-4: 42845 05/21/2012 Plan of Care Planned Activity Notes Codes Status Date Visit Plan: Stroke - with some memory loss and persistent left hand and leg weakness - Recommendation for patient to be off until after spring break due to persistent weakness, and memory loss and fatigue - [facility] rx [facility] [address] office make appt with dr. parrish in [place] Diabetes Mellitus - controlled - per recent [...] in blood pressure readings at home. 04/28/2018 Patient Education: Patient Medication Summary Completed 04/28/2018 Patient Education: Diabetes Completed 04/28/2018 Care Plan: Referral Order SNOMED-CT : 203285141 Pending 04/28/2018 Appointment: Tiffanie Cr WPtel: [address] [place], [place] [address] (30 min) Complex 04/07/2018 Visit Plan: Hypertension - well controlled - continue with current medications, continue with no added salt diet. Pt has been encouraged to exercise daily. The pt has been advised to call the office if there are any acute concerns about change in blood pressure readings at home. Diabetes Mellitus - improved control per pt's report, RX for freeHundredApplesyle aysha CGM for improved checking of her [...] rx for handicap julio for 6 months. 03/29/2018 Appointment: Eleon[facility] Curran [facility]Ptel[facility] [place] (15 min) Moderate 03/29/2018 Patient Education: Patient [...] monitor lesions. 02/22/2018 Appointment: Tiffanie Cr WPtel: [address] [place], [place] [address] (15 min) Moderate 02/22/2018 Patient Education: Patient [...] control. 01/07/2018 Appointment: [facility] Cr [phone] [facility] [place] (15 min) Moderate 01/07/2018 Patient Education: Patient Medication Summary Completed 01/07/2018 Patient Education: Diabetes Completed 01/07/2018 Appointment: [facility]iffanie Cr [facility]el[facility] [phone] [facility] [place] (15 min) Moderate 12/31/2017 Patient Education: [...] allergy spray. 10/01/2017 Appointment: [facility]iffanie Cr [facility]el[facility] [phone] [facility] [place] (15 min) Moderate 10/01/2017 Patient Education: Patient Medication Summary Completed 10/01/2017 Appointment: [facility] Cr [facility] [phone] [facility] [place] (15 min) Moderate 09/07/2017 Visit Plan: Diabetes [...] Cr [phone] [facility] (30 min) Complex 06/08/2017 Patient Education: Patient [...] renal functioning. 11/12/2016 Appointment: Eleonora Curran WPtel: [facility] [place] (15 min) Moderate 11/12/2016 Patient Education: Patient Medication Summary Completed 11/12/2016 Patient Education: Patient Medication Summary Completed 11/12/2016 Appointment: [facility] Curran [facility]el[facility] [phone] [facility] [place] (15 min) Moderate 11/06/2016 Visit Plan: Allergies [...] patient's pharmacy. 09/16/2016 Appointment: Talya Hernandez WPtel: [phone] (10 min) Simple 09/16/2016 Patient Education: Patient Medication Summary Completed 09/16/2016 Care Plan: SCREENINGMAMMOGRAPHYDIGITAL LOINC : 05826-8 Pending 08/16/2016 Visit Plan: Diabetes Mellitus - [...] concerns. 08/11/2016 Appointment: Eleonora Curran WPtel: [phone] [facility] (15 min) Moderate 08/11/2016 Patient Education: Patient Medication Summary Completed 08/11/2016 Patient Education: Obesity Completed 08/11/2016 Appointment: Eleonora Curran WPtel: [facility] (15 min) Moderate 07/14/2016 Patient Education: Patient Medication Summary Completed 07/04/2016 Care Plan: Cbc With Differential Pending 07/04/2016 Care Plan: Comp Metabolic Pending 07/04/2016 Care Plan: Tsh Pending 07/04/2016 Care Plan: Lipid Pending 07/04/2016 Care Plan: %Hba1C LOINC : 55967-3 Pending 07/04/2016 Care Plan: Free T4 Pending 07/04/2016 Appointment: Eleonora Curran WPtel: [facility] (15 min) Moderate 06/16/2016 Appointment: Eleonora Curran WPtel: [address] [place], [place] [phone] (15 min) Moderate 05/06/2016 Visit Plan: Gastroenteritis [...] Appointment: Talya Hernandez WPtel: [phone] [place] (10 min) Simple 03/31/2016 Patient [...] not improving. 02/01/2016 Appointment: Talya Hernandez WPtel: [phone] [phone] (30 min) Complex 02/01/2016 Patient Education: Patient Medication Summary Completed 02/01/2016 Visit Plan: Bronchitis - acute case of bronchitis identified. Pt has been given antibiotics, breathing treatments as appropriate, and pt has been instructed to call if symptoms are not improved, or if symptoms acutely worsen. 01/22/2016 Appointment: Talya Hernandez WPtel: [phone] [phone] (15 min) Moderate 01/22/2016 Patient Education: [...] to monitor 01/07/2016 Appointment: Eleonora Curran WPtel: [facility] (15 min) Moderate 01/07/2016 Patient Education: Patient [...] victoza stopped 09/17/2015 Appointment: Eleonora Curran WPtel: [address] [place], [place] [address] (15 min) Moderate 09/17/2015 Patient Education: Patient [...] Hypertension Completed 05/29/2015 Appointment: Eleonora Curran WPtel: [facility] (15 min) Moderate 05/22/2015 Appointment: (15 min) [...] of control. 12/12/2014 Appointment: Eleonora Curran WPtel: [facility] (15 min) Moderate 12/12/2014 Patient Education: Patient Medication Summary Completed 12/12/2014 Patient Education: Hypertension Completed 12/12/2014 Appointment: Talya Hernandez WPtel: [phone] Follow up 11/28/2014 Patient Education: Patient Medication [...] starting to become less controlled.victoza sample - [id number] exp 02/2016 novonordisk Hypertension - well controlled - continue with current medications, continue with no added salt diet. Pt has been encouraged to exercise daily. The pt has been advised to call the office if there are any acute concerns about change in blood pressure readings at home. 09/04/2014 Appointment: Eleonora Curran WPtel: [facility] Follow up 09/04/2014 Patient Education: Patient Medication Summary Completed 09/04/2014 Patient Education: Hypertension Completed 09/04/2014 Care Plan: Referral Order SNOMED-CT : [id number] Ordered 09/04/2014 Visit Plan: Hypertension - well [...] metformin 08/04/2014 Appointment: Eleon[facility] Curran WPtel: [phone] [facility] Follow up 08/04/2014 Patient Education: Patient Medication Summary Completed 08/04/2014 Patient Education: Hypertension Completed 08/04/2014 Visit Plan: Thyroid nodules-nodule on left lobe has increased in size-biopsy scheduled for Decrease renal function- secondary to dehydration-repeat labs-maintain adequate oral intake-follow up with straight edger as scheduled DM-hgb a1c improved-continue with same [...] Summary Completed 01/05/2014 Appointment: Eleon[facility] Curran WPtel: [phone] [facility] Follow up 01/03/2014 Visit Plan: Diabetes Mellitus [...] Eleonora Curran WPtel: [facility] Follow up 10/10/2013 Patient Education: Patient Medication Summary Completed 10/10/2013 Patient Education: Hypertension Completed 10/10/2013 Appointment: Eleon[facility] Curran WPtel: [phone] [facility] [place] Follow up 09/13/2013 Appointment: Eleonora Curran WPtel: [phone] [facility] [place] Follow up 08/03/2013 Visit Plan: Diabetes [...] options. 08/02/2013 Appointment: Eleonora Curran WPtel: [phone] [facility] Follow up 08/02/2013 Patient Education: Patient Medication [...] care. 06/30/2013 Appointment: Eleonora Curran WPtel: [phone] [facility] [facility] 06/30/2013 Patient Education: Patient Medication Summary [...] patient today. 06/20/2013 Appointment: Eleonora Curran WPtel: [facility] Diabetic education 06/20/2013 Patient Education: Patient Medication Summary Completed 06/20/2013 Appointment: Derek Currany WPtel: [address] [place], [place] [phone] Follow up 06/13/2013 Visit Plan: Shoulder pain [...] acute bronchitis. 02/21/2013 Appointment: Eleonora Curran WPtel: [facility] Sick 02/21/2013 Patient Education: Patient Medication Summary [...] 3 months. 12/13/2012 Appointment: Ele[facility] Curran [facility]Ptel: [phone] [facility] Follow up 12/13/2012 Patient Education: Patient Medication [...] to medications. 09/23/2012 Appointment: Eleon[facility] Curran WPtel: [phone] [facility] Follow up 09/23/2012 Patient Education: Patient Medication [...] at home. 06/14/2012 Appointment: Talya Hernandez WPtel: [address] [place], [place] [address] Follow up 06/14/2012 Patient Education: Patient Medication Summary Completed 06/14/2012 Patient Education: Hypertension Completed 06/14/2012 Visit Plan: Deehm-gbqgg-iyig aches-suspect influenza- patient no indication for tamiflu [...] starting to become less controlled. 05/21/2012 Appointment: David Talya [facility]Ptel[phone] [phone] New Patient 05/21/2012 Patient Education: Patient Medication Summary Completed 05/21/2012 Referral: DennisHernandez rothman WPtel: Referral Appointment Requested Referral: [facility] Referral Appointment Requested Instructions Comment stay off of work until after spring - come back to the office in 1 month we will make you an appt with Dr. Parrish - neurologist in [place]. stop the lisinopril and start on losartan [...] office make appt with dr. parrish [place] Diabetes Mellitus - controlled - per recent [...] THEN INCREASE TO 10 UNITS NIGHTLY . Abdominal pain - UA negative. Check [...] months based on previous levels of control. CLEAR LIQUID DIET-ADVANCE TO BLAND TOLERATED PROBIOTIC [...] back worse than before her acute bronchitis. pt to start on victoza 1.2 mg [...] assure normal liver response to medications. Plan: ([id number]) FLU VAC NO PRSV 4 SHAKILA 3 [...] glucose control. Trulicity started - victoza stopped . Hypertension - well controlled - continue [...] - recommended continue with physical therapy with Lenoardo Wyman and rx for handicap placard for 6 months. pt to stop cardizem, stop diovan, stop [...] daily stop metformin I SENT ZITHROMAX TO [facility]-2 PILLS TODAY AND THEN 1 PILL DAILY UNTIL GONE. I ALSO SENT A PRESCRIPTION FOR DIFLUCAN FOR A YEAST INFECTION. Recommend PROBIOTIC twice daily-lactobacillus. START TODAY. [place] [facility] IF THE DIARRHEA PERSISTS OR WORSENS, START FLAGYL 500MG THREE TIMES DAILY-I SENT IT TO [facility]. I will call phenergan with codeine cough syrup to [facility]. Okay to take 5- 10ml every 6 hours as needed for cough. . Qhxjh-pgujy-ccrq aches-suspect influenza-patient no indication for tamiflu due [...] starting to become less controlled.victoza sample - [id number] exp 02/2016 novonordisk Hypertension - well controlled - continue with current medications, continue with no added salt diet. Pt has been encouraged to exercise daily. The pt has been advised to call the office if there are any acute concerns about change in blood pressure readings at home. . Diabetes Mellitus - I have recommended [...] diet discussed in detail with patient today. KENALOG INJECTION TODAY IN THE OFFICE START [...] not improved, or if symptoms acutely worsen. decrease citalopram to 1/2 tab daily x [...] medications for pneumonia as per urgent care. . Well Adult - pt was counseled about diet, exercise, and encouraged to follow a heart healthy diet and increase activity level. The patient was instructed to RTC yearly for well adult exams and PRN for acute illnesses. The pt was also instructed to have yearly labs for check of cholesterol, thyroid, chem panel, CBC, and renal functioning. Increase lantus to 40 units daily. get [...] discomfort because she was able to relax. Stop victoza - start Xultophy (it is [...] in the nasal steroid allergy spray. . Sinusitis - Pt has acute infection [...] lesion, dressed with neosporin and monitor lesions. CHECK CHEM PANEL METFORMIN TO 500MG DAILY INCREASE PO FLUIDS . Thyroid nodules-nodule on left lobe has increased in size-biopsy scheduled for Decrease renal function-secondary to dehydration-repeat labs-maintain adequate oral intake-follow up with straight edger as scheduled DM-hgb a1c improved-continue with same medications . Hypertension - well controlled - continue [...] pt to call if not improving. . Sinusitis - Pt has acute infection [...]
[2018-07-07 00:15] LABS: BASOPHILS # (AUTO) 0.1 10^3/uL (0.0-0.1); BASOPHILS % (AUTO) 1 % (0-10); EOSINOPHILS # (AUTO) 0.2 10^3/uL (0.0-0.3); EOSINOPHILS % (AUTO) 2 % (0-10); HEMATOCRIT 42 % (35-52); LYMPHOCYTES # (AUTO) 2.3 X 10^3 (1.0-4.0); LYMPHOCYTES % (AUTO) 21 % (12-44); MEAN CORPUSCULAR HEMOGLOBIN 29 PG (25-34); MEAN CORPUSCULAR HGB CONC 33 G/DL (32-36); MEAN CORPUSCULAR VOLUME 88 FL (80-99); MEAN PLATELET VOLUME 10.9 FL (7.4-10.4); MONOCYTES # (AUTO) 0.6 X 10^3 (0.0-1.0); MONOCYTES % (AUTO) 5 % (0-12); NEUTROPHILS # (AUTO) 7.7 X 10^3 (1.8-7.8); NEUTROPHILS % (AUTO) 71 % (42-75); PLATELET COUNT 307 10^3/uL (130-400); RED CELL DISTRIBUTION WIDTH 13.2 % (10.0-14.5); WHITE BLOOD COUNT 10.8 10^3/uL (4.3-11.0)
--- OUTSIDE RECORDS SUMMARY | 2018-07-07 00:18 | XMS REPORT | Continuity of Care Document ---
Author Author [facility] Address Unknown Phone Unavailable Allergies Active Description Code Type Severity Reaction Onset Reported/Identified Relationship to Patient Clinical Status Yes No Known Drug Allergies [id number] Drug Allergy Unknown N/A 05/12/2014 Yes pneumococcal vaccine [id number] Drug Allergy Unknown N/A 03/12/2018 Medications There is no data. Problems Date Dx Coded Attending Type Code Diagnosis Diagnosed By 03/26/1626 KHALIDA ARIAS DO Ot M75.02 ADHESIVE CAPSULITIS OF LEFT SHOULDER 03/21/2014 OLESYA PHD, GABRIEL Gomez V71.09 OBSERVATION OF OTHER SUSPECTED MENTAL CONDITION 04/17/2014 JAMES PACHECO SQL BI DEVELOPER Ot 241.1 04/17/2014 JAMES PACHECO SQL BI DEVELOPER Ot 241.1 04/17/2014 ASHLEY MARTINEZ MD Ot 241.0 04/24/2014 JAMES PACHECO SQL BI DEVELOPER Ot 241.1 04/24/2014 JAMES PACHECO SQL BI DEVELOPER Ot 241.1 05/05/2014 JAMES PACHECO SQL BI DEVELOPER Ot 241.1 05/18/2014 MASSIMO SHARPE, CAROL Philippe [...] Ot E888.9 FALL NOS 02/01/2016 JAMES PACHECO SQL BI DEVELOPER Ot 794.5 ABN THYROID FUNCT STUDY 02/01/2016 [...] ABSENCE OF OTH ORGAN 02/01/2016 MARIO SALAZAR EARTH SCIENCE LABORATORY TECHNICIAN Ot 562.11 DIVERTICULITIS COLON (W/O MENT OF HEMORR 02/01/2016 MARIO SALAZAR EARTH SCIENCE LABORATORY TECHNICIAN Ot V45.86 BARIATRIC SURGERY STATUS 02/06/2016 JAMES PACHECO SQL BI DEVELOPER Ot R05 COUGH 02/06/2016 JUAN SHARPE, ASHLEY Rg Ot 719.41 JOINT PAIN-SHLDER 02/06/2016 JUAN SHARPE, ASHLEY Rg Ot 726.10 BURSAE TENDONS DIS SHLDER NOS 02/06/2016 JUAN SHARPE, ASHLEY Rg Ot E000.8 OTHER EXTERNAL CAUSE STATUS 02/06/2016 ASHLEY MARTINEZ MD Ot E849.0 ACCIDENT IN HOME 02/06/2016 ASHLEY MARTINEZ MD Ot E888.9 FALL NOS 02/06/2016 JAMES PACHECO SQL BI DEVELOPER Ot 794.5 ABN THYROID FUNCT STUDY 02/06/2016 ASHLEY MARTINEZ MD Ot 241.0 NONTOX UNINODULAR GOITER 02/06/2016 PACHECO, JAMES M SQL BI DEVELOPER Ot 241.1 NONTOX MULTINODUL GOITER 02/06/2016 MASSIMO SHARPE, CAROL Philippe Ot 241.0 NONTOX UNINODULAR GOITER 02/06/2016 MASSIMO SHARPE, CAROL Philippe Ot V72.63 PRE-PROCEDURAL LABORATORY EXAMINATION 02/06/2016 MASSIMO SHARPE, CAROL Philippe Ot V74.8 SCREEN-BACTERIAL DIS NEC 02/06/2016 MASSIMO SHARPE, CAROL Philippe Ot 275.41 HYPOCALCEMIA 02/06/2016 MASSIMO SHARPE, CAROL Philippe Ot V45.79 ACQRD ABSENCE OF OTH ORGAN 02/06/2016 MARIO SALAZAR EARTH SCIENCE LABORATORY TECHNICIAN Ot 562.11 DIVERTICULITIS COLON (W/O MENT OF HEMORR 02/06/2016 MARIO SALAZAR EARTH SCIENCE LABORATORY TECHNICIAN Ot V45.86 BARIATRIC SURGERY STATUS 02/06/2016 JAMES PACHECO SQL BI DEVELOPER Ot R05 COUGH 02/14/2016 JAMES PACHECO SQL BI DEVELOPER Ot R05 COUGH 06/17/2016 HUGO DO, KHALIDA [...] Ot E888.9 FALL NOS 06/25/2017 JAMES PACHECO SQL BI DEVELOPER Ot 794.5 ABN THYROID FUNCT STUDY 06/25/2017 [...] ABSENCE OF OTH ORGAN 06/25/2017 MARIO SALAZAR EARTH SCIENCE LABORATORY TECHNICIAN Ot 562.11 DIVERTICULITIS COLON (W/O MENT OF HEMORR 06/25/2017 MARIO SALAZAR EARTH SCIENCE LABORATORY TECHNICIAN Ot V45.86 BARIATRIC SURGERY STATUS 06/25/2017 TARA JAMES Jose Martin SQL BI DEVELOPER Ot R05 COUGH 07/23/2017 TREMAYNE MARQUEZ EARTH SCIENCE LABORATORY TECHNICIAN Ot L90.5 SCAR CONDITIONS AND FIBROSIS OF SKIN 07/23/2017 TREMAYNE MARQUEZ EARTH SCIENCE LABORATORY TECHNICIAN Ot Z47.89 ENCOUNTER FOR OTHER ORTHOPEDIC AFTERCARE [...] PALPITATIONS 03/12/2018 ASHLEY MARTINEZ MD Ot Z79.4 JAIL (CURRENT) USE OF INSULIN 03/12/2018 ASHLEY MARTINEZ MD Ot Z85.820 PERSONAL HISTORY OF MALIGNANT MELANOMA O 03/12/2018 ASHLEY MARTINEZ MD Ot Z91.19 PATIENT'S NONCOMPLIANCE W OT MEDICAL TR 03/12/2018 ASHLEY MARTINEZ MD Ot Z98.84 BARIATRIC SURGERY STATUS 03/18/2018 JUANCARLOS LENNON MD Ot E03.9 HYPOTHYROIDISM, UNSPECIFIED 03/18/2018 JUANCARLOS LENNON MD Ot E11.9 TYPE 2 DIABETES MELLITUS WITHOUT COMPLIC 03/18/2018 SAJI SHARPE, JUANCARLOS Santos Ot E78.5 HYPERLIPIDEMIA, UNSPECIFIED 03/18/2018 JUANCARLOS LENNON MD Ot F32.9 MAJOR DEPRESSIVE DISORDER, SINGLE EPISOD 03/18/2018 JUANCARLOS LENNON MD Ot I10 ESSENTIAL (PRIMARY) HYPERTENSION 03/18/2018 JUANCARLOS LENNON MD Ot I69.354 HEMIPLGA FOLLOWING CEREBRAL INFRC AFFECT 03/18/2018 JUANCARLOS LENNON MD Ot J30.9 ALLERGIC RHINITIS, UNSPECIFIED 03/18/2018 JUANCARLOS LENNON MD Ot Z79.4 SUPERVISOR CURING ROOM (CURRENT) USE OF INSULIN 03/24/2018 ASHLEY MARTINEZ MD Ot G47.10 HYPERSOMNIA, UNSPECIFIED 03/24/2018 ASHLEY MARTINEZ MD Ot G47.36 SLEEP RELATED HYPOVENTILATION IN CONDITI 03/24/2018 ASHLEY MARTINEZ MD Ot I10 ESSENTIAL (PRIMARY) HYPERTENSION 03/24/2018 ASHLEY MARTINEZ MD Ot R06.83 SNORING 03/24/2018 ASHLEY MARTINEZ MD Ot Z86.73 PRSNL HX OF TIA (TIA), AND CEREB INFRC W 04/05/2018 ANEUDY BLACKBURN MD Ot E11.9 TYPE 2 DIABETES MELLITUS WITHOUT COMPLIC 04/05/2018 ANEUDY BLACKBURN MD Ot E78.5 HYPERLIPIDEMIA, UNSPECIFIED 04/05/2018 ANEUDY BLACKBURN MD Ot G47.30 SLEEP APNEA, UNSPECIFIED 04/05/2018 ANEUDY BLACBKURN MD, Ot I10 ESSENTIAL (PRIMARY) HYPERTENSION 04/05/2018 ANEUDY BLACKBURN MD Ot I34.0 NONRHEUMATIC MITRAL (VALVE) INSUFFICIENC 04/05/2018 ANEUDY BLACKBURN MD Ot I48.0 PAROXYSMAL ATRIAL FIBRILLATION 04/05/2018 ANEUDY BLACKBURN MD Ot I65.23 OCCLUSION AND STENOSIS OF BILATERAL DILLON 04/05/2018 ANEUDY BLACKBURN MD Ot I69.351 HEMIPLGA FOLLOWING CEREBRAL INFRC AFF RI 04/05/2018 ANEUDY BLACKBURN MD Ot Z79.02 SUPERVISOR CURING ROOM (CURRENT) USE OF ANTITHROMBOTI 04/05/2018 ANEUDY BLACKBURN MD Ot Z79.82 JAIL (CURRENT) USE OF ASPIRIN 04/05/2018 ANEUDY BLACKBURN MD, Ot Z79.899 OTHER JAIL (CURRENT) DRUG THERAPY 04/19/2018 ANEUDY BLACKBURN MD, Ot E11.9 TYPE 2 DIABETES MELLITUS WITHOUT COMPLIC 04/19/2018 ANEUDY BLACKBURN MD, Ot E78.5 HYPERLIPIDEMIA, UNSPECIFIED 04/19/2018 ANEUDY BLACKBURN MD, Ot G47.30 SLEEP APNEA, UNSPECIFIED 04/19/2018 ANEUDY BLACKBURN MD, Ot I10 ESSENTIAL (PRIMARY) HYPERTENSION 04/19/2018 ANEUDY BLACKBURN MD, Ot I34.0 NONRHEUMATIC MITRAL (VALVE) INSUFFICIENC 04/19/2018 ANEUDY BLACKBURN MD, Ot I48.0 PAROXYSMAL ATRIAL FIBRILLATION 04/19/2018 ANEUDY BLACKBURN MD, Ot I65.23 OCCLUSION AND STENOSIS OF BILATERAL DILLON 04/19/2018 ANEUDY BLACKBURN MD, Ot I69.351 HEMIPLGA FOLLOWING CEREBRAL INFRC AFF RI 04/19/2018 ANEUDY BLACKBURN MD, Ot Z79.02 SUPERVISOR CURING ROOM (CURRENT) USE OF ANTITHROMBOTI 04/19/2018 ANEUDY BLACKBURN MD, Ot Z79.82 SUPERVISOR CURING ROOM (CURRENT) USE OF ASPIRIN 04/19/2018 ANEUDY BLACKBURN MD, Ot Z79.899 OTHER SUPERVISOR CURING ROOM (CURRENT) DRUG THERAPY 06/09/2018 FREDA SHARPE, MARIO Philippe Ot Z86.73 PRSNL HX OF TIA (TIA), AND CEREB INFRC W Procedures Code [place] [address] PSYCH DIAGNOSTIC EVALUATION 03/21/2014 [id number] INSERT OF MONITOR DEV INTO CHEST SUBCU/F [...] Status Pt. Type Provider Facility Loc./Unit Complaint [id number] 03/21/2014 08:02:00 03/21/2014 23:59:59 CLS Outpatient OLESYA PHD, GABRIEL Gomez [id number] 03/31/2018 08:18:00 03/31/2018 23:59:59 CLS Outpatient BERE SHARPE, ANEUDY Bullock [facility] CATH CVA,HTN,DM [id number] 03/25/2018 13:20:00 03/25/2018 23:59:59 CLS Preadmit ASHLEY MARTINEZ MD [facility] REHAB CVA [id number] 03/23/2018 10:55:00 03/23/2018 11:15:00 DIS Outpatient ASHLEY MARTINEZ MD [facility] SLEEP HYPERSOMNIA,STROKE [id number] 03/12/2018 09:38:00 03/18/2018 10:30:00 DIS Inpatient SAJI SHARPE, JUANCARLOS Santos [facility] IRF CVA [id number] 03/09/2018 09:25:00 03/12/2018 09:30:00 DIS Inpatient ASHLEY MARTINEZ MD [facility] 4TH HTN;L SIDE WEAKNESS; HYPOTHYROIDISM;UNCONTROLLED DM [id number] 07/30/2017 16:14:00 08/07/2017 13:40:00 DIS Outpatient TREMAYNE MARQUEZ APRN [facility] REHAB S/P PARTIAL PALMAR FASCIOTOMY L HAND [id number] 06/17/2016 15:58:00 06/17/2016 16:27:00 DIS Outpatient KHALIDA ARIAS DO [facility] REH[facility] L SHOULDER MILD ADHESIVE CAPSULITIS;CALCIFIC TENDI [id number] 02/01/2016 11:45:00 02/01/2016 23:59:59 CLS Outpatient JAMES PACHECO [facility] RAD COUGH [id number] 11/15/2014 09:04:00 11/15/2014 23:59:59 CLS Outpatient MARIO SALAZAR APRN [facility] RAD LLQ PAIN DIARRHEA DIVERTICULITIS [id number] 05/24/2014 16:05:00 05/24/2014 23:59:59 CLS Outpatient CAROL KEYS MD [facility] LAB HYPOCALCAEMCA [id number] 05/17/2014 06:00:00 05/18/2014 11:40:00 DIS Outpatient CAROL KEYS MD [facility] SDC THYROID NODULE [id number] 05/12/2014 08:04:00 05/12/2014 23:59:59 CLS Outpatient CAROL KEYS MD [facility] PREOP THYROID NODULE [id number] 04/13/2014 13:10:00 04/13/2014 23:59:59 CLS Outpatient JAMES PACHECO [facility] RAD MULTIPLE THYROID NODULES [id number] 03/31/2014 15:54:00 03/31/2014 23:59:59 CLS Outpatient ASHLEY MARTINEZ MD [facility] RAD THYROID NODULES [id number] 09/23/2013 13:20:00 09/23/2013 23:59:59 CLS Outpatient JAMES PACHECO [facility] RAD ABNORMAL THYROID LABS [id number] 06/09/2013 12:55:00 06/09/2013 23:59:59 CLS Outpatient ASHLEY MARTINEZ MD [facility] RAD FALL, RT SHOULDER PAIN [id number] 05/30/2013 07:55:00 05/30/2013 23:59:59 CLS Outpatient [id number] 07/06/2018 23:24:00 ACT Emergency JUAN RAMON DO, URVASHI K [facility] ER ELEVATED BP [id number] 07/05/2018 13:46:00 ACT Outpatient MARIO BARBA MD [facility] REHAB STROKE 0000 02/23/2017 06:07:22 02/23/2017 23:59:59 CLS Outpatient [id number] 11/15/2014 09:06:50 ACT Document Registration [id number] 02/04/2017 16:40:00 02/04/2017 23:59:59 [facility]
[2018-07-07 00:29] LABS: ALANINE AMINOTRANSFERASE 26 U/L (0-55); ALKALINE PHOSPHATASE 135 U/L (40-136); BILIRUBIN,TOTAL 0.4 MG/DL (0.1-1.0); BUN/CREATININE RATIO 11; CALCIUM 9.4 MG/DL (8.5-10.1); CARBON DIOXIDE 24 MMOL/L (21-32); CHLORIDE 106 MMOL/L (98-107); CREATININE SERUM 1.16 MG/DL (0.60-1.30); GFR ESTIMATED 49; GLUCOSE 126 MG/DL (70-105); MAGNESIUM 2.8 MG/DL (1.8-2.4); POTASSIUM 3.5 MMOL/L (3.6-5.0); SODIUM 144 MMOL/L (135-145); TOTAL PROTEIN 7.3 GM/DL (6.4-8.2)
[2018-07-07 00:30] LABS: INR 0.9 (0.8-1.4); PROTHROMBIN TIME PATIENT 12.3 SEC (12.2-14.7)
[2018-07-07] MEDS ORDERED: hydrALAZINE (APESOLINE) 20 MG/ML VIAL IV ONE ×2 (00:30→01:45)
[2018-07-07 00:36] LABS: MYOGLOBIN SERUM 39.2 NG/ML (10.0-92.0)
--- NOTE | 2018-07-07 01:28 | ED Cardiac General ---
History of Present Illness General Chief Complaint: Cardiac/General Problems Stated Complaint: ELEVATED BP Nursing Triage Note: PT AMB TO ROOM #5 W/O DIFFICULTY. A&OX4. C/O INCREASED BP. PT REPORTS SHE TOOK HER BP REGIONAL CONTROLLER, AND HAD A READING OF 187/108. REPORTS HX CVA IN 2018 WITH CURRENT LT SIDED RESIDUAL WEAKNESS. PT DENIES CHEST PAIN OR DISCOMFORT. PT STATES, "I CAN FEEL MY HEAD THROBBING." INITIAL BP 209/108. Source: patient History of Present Illness Date Seen by Provider: Jul 06, 2018 Time Seen by Provider: 23:55 Initial Comments PT ARRIVES VIA POV FROM HOME C/O ELEVATED BLOOD PRESSURE TONIGHT PT HAS BEEN CHECKING HER BP MULTIPLE TIMES TONIGHT--WAS HIGH 187/108. PT GOT A NEW BLOOD PRESSURE MACHINE TONIGHT. C/O THROBBING IN HER HEAD, BUT NOT AN ACTUAL HEADACHE STATES SHE CAN FEEL HER HEART BEATING IN HER CHEST NO CHEST PAIN OR SHORTNESS OF BREATH NO VISION CHANGES NO NAUSEA/VOMITING NO NEW PARESTHESIAS OR MOTOR DEFICITS NO DIZZINESS PT HAD CVA WITH RESIDUAL LEFT SIDE WEAKNESS 02/2018. PT STATES THAT HER BP HAS BEEN RUNNING 140-150/80'S, AND HER DOSE OF METOPROLOL WAS INCREASED FROM 50 MG TO 100 MG LAST WEEK BY DR. MARTINEZ. PT ALSO TAKES LOSARTAN FOR BP--NO DOSE CHANGE WITH IT. HAS FOLLOW UP IN JULY. PCP: DR. MARTINEZ NANOTECHNOLOGY ENGINEERING TECHNICIAN: DR. BLACKBURN NEUROLOGIST: DR. STEINBERG IN [facility] Allergies and Home Medications Allergies Coded Allergies: pneumococcal vaccine (Verified Adverse Reaction, Unknown, 03/12/18) PT STATES THAT SHE HAD A BAD REACTION WHEN TOOK IT Home Medications Aspirin 81 Mg Tablet., 81 MG PO DAILY, (Reported) Atorvastatin Calcium 80 Mg Tablet, 80 MG PO HS Prescribed by: JUANCARLOS LENNON on 03/18/18 075 Clopidogrel Bisulfate 75 Mg Tablet, 75 MG PO DAILY Prescribed by: JUANCARLSO LENNON on 03/18/18 075 Hydrochlorothiazide 25 Mg Tablet, 25 MG PO DAILY, (Reported) Insulin Degludec/Liraglutide 3 Ml Insuln.pen, 22 UNITS SC DAILY, (Reported) Levothyroxine Sodium 88 Mcg Tablet, 88 MCG PO DAILY, (Reported) Lifitegrast 1 Each Droperette, 1 DROP OU BID, (Reported) Lisinopril 40 Mg Tablet, 40 MG PO DAILY Prescribed by: JUANCARLOS LENNON on 03/18/18751 Metoprolol Succinate 50 Mg Tab.er.24h, 50 MG PO DAILY, (Reported) Oxybutynin Chloride 5 Mg Tablet, 5 MG PO BID Prescribed by: JUANCARLOS LENNON on 03/18/18751 Potassium Chloride 10 Meq Tablet.er, 10 MEQ PO MoWeFr, (Reported) Patient Home Medication List Home Medication List Reviewed: Yes Review of Systems Review of Systems Constitutional: No dizziness EENTM: No Symptoms Reported Respiratory: No Symptoms Reported Cardiovascular: See HPI Gastrointestinal: No Symptoms Reported Genitourinary: No Symptoms Reported Musculoskeletal: no symptoms reported Skin: no symptoms reported Psychiatric/Neurological: See HPI; Denies Headache; Pre-Existing Deficit Endocrine: No Symptoms Reported Hematologic/Lymphatic: No Symptoms Reported Past Zrrmwms-Kamvop-Oqisqt Hx Patient Social History Alcohol Use: Denies Use Recreational Drug Use: No Smoking Status: Never a Smoker 2nd Hand Smoke Exposure: No Recent Foreign Travel: No Contact w/Someone Who Travel: No Recent Infectious Disease Expo: No Recent Hopitalizations: Yes Immunizations Up To Date Tetanus Booster (TDap): Unknown Date of Influenza Vaccine: Jan 11, 2018 Seasonal Allergies Seasonal Allergies: No Past Medical History Surgeries: Yes (ROTATOR CUFF REPAIR, GASTRIC SLEEVE) Abdominal, Orthopedic, Thyroidectomy Respiratory: No Cardiac: Yes High Cholesterol, Hypertension Neurological: Yes (CVA WITH LEFT SIDE WEAKNESS 02/2018) Stroke Reproductive Disorders: No Genitourinary: No Gastrointestinal: Yes Gastroesophageal Reflux Musculoskeletal: Yes (Lt side weakness post CVA) Endocrine: Yes Diabetes, Insulin dep HEENT: Yes ("early macular degeneration") Macular Degeneration Cancer: Yes Melanoma Did You Recieve Any Treatments: Yes What Type of Treatment Did You: Surgical Intervention Psychosocial: No Integumentary: Yes (melanoma removed from abdomen) Blood Disorders: No Family Medical History Hypertension Physical Exam Vital Signs Vital Signs - First Documented 07/06/18 23:33 Temp 97.9 Pulse 76 Resp 18 B/P (MAP) 209/108 (141) Pulse Ox 98 O2 Delivery Room Air Capillary Refill : Less Than 3 Seconds Height, Weight, BMI Height: 5'6.00" Weight: 180lbs. 0.0oz. 81.504749fk; 29.4 BMI Method:Stated General Appearance: No Apparent Distress, WD/WN HEENT: PERRL/EOMI Neck: Full Range of Motion, Normal Inspection, Non Tender, Supple; No JVD Respiratory: Normal Breath Sounds, No Accessory Muscle Use, No Respiratory Distress Cardiovascular: Regular Rate, Rhythm, No Edema, No JVD, No Murmur, Normal Peripheral Pulses Gastrointestinal: Non Tender, Soft Extremity: Normal Inspection, No Pedal Edema Neurologic/Psychiatric: Alert, Oriented x3, Normal Mood/Affect, dispatcher service chief II-XII Norm as Tested, Other (VERY MILD LEFT SIDE WEAKNESS) Skin: Normal Color, Warm/Dry Progress/Results/Core Measures Results/Orders Lab Results Laboratory Tests Test 07/06/18 23:40 Range/Units White Blood Count 10.8 4.3-11.0 10^3/uL Red Blood Count 4.77 4.35-5.85 10^6/uL Hemoglobin 14.0 11.5-16.0 G/DL Hematocrit 42 35-52 % Mean Corpuscular Volume 88 80-99 FL Mean Corpuscular Hemoglobin 29 25-34 PG Mean Corpuscular Hemoglobin Concent 33 32-36 G/DL Red Cell Distribution Width 13.2 10.0-14.5 % Platelet Count 307 130-400 10^3/uL Mean Platelet Volume 10.9 H 7.4-10.4 FL Neutrophils (%) (Auto) 71 42-75 % Lymphocytes (%) (Auto) 21 12-44 % Monocytes (%) (Auto) 5 0-12 % Eosinophils (%) (Auto) 2 0-10 % Basophils (%) (Auto) 1 0-10 % Neutrophils # (Auto) 7.7 1.8-7.8 X 10^3 Lymphocytes # (Auto) 2.3 1.0-4.0 X 10^3 Monocytes # (Auto) 0.6 0.0-1.0 X 10^3 Eosinophils # (Auto) 0.2 0.0-0.3 10^3/uL Basophils # (Auto) 0.1 0.0-0.1 10^3/uL Prothrombin Time 12.3 12.2-14.7 SEC INR Comment 0.9 0.8-1.4 Activated Partial Thromboplast Time 31 24-35 SEC Sodium Level 144 135-145 MMOL/L Potassium Level 3.5 L 3.6-5.0 MMOL/L Chloride Level 106 98-107 MMOL/L Carbon Dioxide Level 24 21-32 MMOL/L Anion Gap 14 5-14 MMOL/L Blood Urea Nitrogen 13 7-18 MG/DL Creatinine 1.16 0.60-1.30 MG/DL Estimat Glomerular Filtration Rate 49 BUN/Creatinine Ratio 11 Glucose Level 126 H 70-105 MG/DL Calcium Level 9.4 8.5-10.1 MG/DL Corrected Calcium 9.4 8.5-10.1 MG/DL Magnesium Level 2.8 H 1.8-2.4 MG/DL Total Bilirubin 0.4 0.1-1.0 MG/DL Aspartate Amino Transf (AST/SGOT) 24 5-34 U/L Alanine Aminotransferase (ALT/SGPT) 26 0-55 U/L Alkaline Phosphatase 135 40-136 U/L Myoglobin 39.2 10.0-92.0 NG/ML Troponin I < 0.028 <0.028 NG/ML Total Protein 7.3 6.4-8.2 GM/DL Albumin 4.0 3.2-4.5 GM/DL My Orders Orders - URVASHI DELATORRE DO Cbc With Automated Diff (07/07/18 00:04) Magnesium (07/07/18 00:04) Chest 1 View, Ap/Pa Only (07/07/18 00:04) Ekg Tracing (07/07/18 00:04) Cardiac Profile 1 (07/07/18 00:04) Comprehensive Metabolic Panel (07/07/18 00:04) Myoglobin Serum (07/07/18 00:04) Protime With Inr (07/07/18 00:04) Partial Thromboplastin Time (07/07/18 00:04) Monitor-Rhythm Ecg Trace Only (07/07/18 00:04) Saline Lock/Iv-Start (07/07/18 00:04) Hydralazine Injection (Apresoline Inject (07/07/18 00:30) Hydralazine Injection (Apresoline Inject (07/07/18 01:45) Medications Given in ED Current Medications Medications Dose Ordered Sig/Brandon Route Start Time Stop Time Status Last Admin Dose Admin Hydralazine HCl 5 mg ONCE ONCE IV 07/07/18 01:45 07/07/18 01:46 DC 07/07/18 01:44 5 MG Hydralazine HCl 10 mg ONCE ONCE IV 07/07/18 00:30 07/07/18 00:31 DC 07/07/18 00:37 10 MG Vital Signs/I&O 07/06/18 23:33 Temp 97.9 Pulse 76 Resp 18 B/P (MAP) 209/108 (141) Pulse Ox 98 O2 Delivery Room Air Blood Pressure Mean: 141 Progress Progress Note : Progress Note GIVEN HYDRALAZINE WITH IMPROVEMENT IN BP, AND PT'S SYMPTOMS OF THROBBING IN HEAD AND FEELING HER HEART BEAT IN HER CHEST ARE NOW GONE UNEVENTFUL ER STAY BP DOWN TO 140'S / 70'S PRIOR TO DISMISSAL AND PT IS ASYMPTOMATIC Initial ECG Impression Date: Jul 06, 2018 Initial ECG Impression Time: 23:52 Initial ECG Rate: 67 Initial ECG Rhythm: Normal Sinus Initial ECG Impression: Normal Diagnostic Imaging Comments CXR--NO ACUTE PROCESS, PENDING RADIOLOGIST REVIEW Reviewed: Reviewed by Me Departure Impression Primary Impression: Hypertension Disposition: 01 HOME, SELF-CARE Condition: Improved Departure-Patient Inst. Referrals: ASHLEY MARTINEZ MD (PCP/Family) Primary Care Physician Patient Instructions: Heart Healthy Diet, High Blood Pressure (DC) Add. Discharge Instructions: TAKE YOUR MEDICATIONS PRESCRIBED FOLLOW UP WITH DR. MARTINEZ OR DR. BLACKBURN THIS WEEK FOR FURTHER CARE RETURN TO ER IF WORSE All discharge instructions reviewed with patient and/or family. Voiced understanding. URVASHI DELATORRE DO Jul 07, 2018 01:28
--- NOTE | 2018-07-07 01:35 | NUR ---
PT AMB TO RESTROOM W/O DIFFICULTY. SPOUSE @ SIDE.
[2018-07-07 02:15] VITALS: BP 139/77
--- NOTE | 2018-07-07 08:23 | Diagnostic Imaging Report ---
CHEST 1 VIEW, AP/PA ONLY Indication: Hypertension Comparison: 03/31/2018 Findings: No focal airspace disease in the visualized lungs. Please note that the posterior lower lobes are poorly evaluated by portable radiography. No pleural effusion or pneumothorax. Normal cardiomediastinal silhouette. Impression: No acute cardiopulmonary process by portable radiography. Dictated by: Dictated on workstation # [id number]
== END 2018-07-07 02:15 | disposition home or self-care (01) ==
LOC: EDUNIT# 23:23 → ER 23:24
DX: I10 Essential (primary) hypertension (principal); E78.00 Pure hypercholesterolemia, unspecified; K21.9 Gastro-esophageal reflux disease without esophagitis; E11.9 Type 2 diabetes mellitus without complications; Z85.820 Personal history of malignant melanoma of skin; Z82.49 Family history of ischemic heart disease and other diseases of the circulatory system; Z86.73 Personal history of transient ischemic attack (TIA), and cerebral infarction without residual deficits; Z88.7 Allergy status to serum and vaccine; Z79.4 Long term (current) use of insulin; Z79.02 Long term (current) use of antithrombotics/antiplatelets; Z79.82 Long term (current) use of aspirin; Z98.890 Other specified postprocedural states; Z98.84 Bariatric surgery status; Z90.89 Acquired absence of other organs
CPT/HCPCS: 36415; 71045; 80053; 83735; 83874; 84484; 85025; 85610; 85730; 93005; 93041

== ENCOUNTER → 2018-07-13 | Outpatient (CLI) | payer BC ==
--- NOTE | 2018-07-13 11:33 | Diagnostic Imaging Report ---
PROCEDURE: US DOPPLER ABD/COMPLETE. TECHNIQUE: Multiple Real-time grayscale images were obtained over the kidneys in various projections. Duplex evaluation of renal arteries was also attempted. INDICATION: Hypertension, diabetes. COMPARISON: None. FINDINGS: The right kidney measures 9.6 cm and the left kidney 9.1 cm. The size and echogenicity are unremarkable. There is no mass or hydronephrosis. Although difficult to evaluate, the renal arteries demonstrate normal peak systolic velocities and ratios bilaterally. The resistive indices range from 0.54 to 0.58 on the right. The resistive indices on the left are 0.47 to 0.57. There is no sonographic evidence of renal artery stenosis. IMPRESSION: 1. Normal-appearing bilateral kidneys. 2. No sonographic evidence of renal artery stenosis. Please note, the examination is limited due to overlying bowel gas. Dictated by: Dictated on workstation # [id number]
== END ==
LOC: RAD 07:50
PROVIDERS: ATTEND Physician Assistant
DX: I63.9 Cerebral infarction, unspecified (principal); E11.9 Type 2 diabetes mellitus without complications; I10 Essential (primary) hypertension
CPT/HCPCS: 93975

== ENCOUNTER 2018-08-24 08:14 | Outpatient (RCR) | payer BC | END 2018-08-25 | disposition home or self-care (01) | PROVIDERS: ATTEND Specialist | DX: Z86.73 Personal history of transient ischemic attack (TIA), and cerebral infarction without residual deficits (principal) ==

== ENCOUNTER → 2020-08-20 | Outpatient (CLI) | payer BC ==
[~2020-08-20] MED LIST changes: +ASPI-1238 PO; -ASPI-983 PO; -DULO60CA58 PO; +DULO60CA59 PO; -LISI10TA2 PO; +LISI10TA25 PO; -LISI40TA PO; +LISI40TA9 PO; -METO-370 PO; +METO50TA7 PO; +OXYB5TAB13 PO; -OXYB5TAB9 PO
== END ==
LOC: CARD 09:19
PROVIDERS: ATTEND Internal Medicine Cardiovascular Disease
DX: I10 Essential (primary) hypertension (principal)
CPT/HCPCS: 93306

== ENCOUNTER 2021-04-24 05:35 | Outpatient (CLI) | payer MEDICARE, OTHER ==
[~2021-04-24] VITALS: Ht 167.7 cm; Wt 75.0 kg
[2021-04-25] MEDS ORDERED: SEMA1PEN3 SQ (09:43)
[2021-04-25] MEDS ORDERED: ASPI-999 PO (09:43)
[2021-04-25] MEDS ORDERED: LOSA100T57 PO (09:43)
[2021-04-25] MEDS ORDERED: CYCL1DRO10 OU (09:43)
[2021-04-25] MEDS ORDERED: POTA10TA37 PO (09:43)
[2021-04-25] MEDS ORDERED: MTP100TCR PO (09:43)
[2021-04-25] MEDS ORDERED: DULO20CA19 PO (09:43)
[2021-04-25] MEDS ORDERED: AMLO-250 PO (09:43)
[2021-04-25] MEDS ORDERED: ATOR40TA70 PO (09:45)
[2021-04-25] MEDS ORDERED: CLOP75TA69 PO (09:45)
[2021-04-25] MEDS ORDERED: VIT1CAPS44 PO (09:45)
== END 2021-04-25 10:01 | disposition home or self-care (01) ==
LOC: PREOP 05:35
PROVIDERS: ATTEND Specialist
DX: Z01.818 Encounter for other preprocedural examination (principal)

== ENCOUNTER 2021-05-03 05:59 | Day surgery (SDC) | payer MEDICARE, OTHER ==
[~2021-05-03] VITALS: Ht 167.7 cm; Wt 75.0 kg
[~2021-05-03 05:59] MED LIST changes: +AMLO-250 PO; +ASPI-999 PO; +ATOR40TA70 PO; +CLOP75TA69 PO; +CYCL1DRO10 OU; +DULO20CA19 PO; +LOSA100T57 PO; +MTP100TCR PO; +POTA10TA37 PO; +SEMA1PEN3 SQ; +VIT1CAPS44 PO
[2021-05-03] MEDS ORDERED: POVIDONE (BETADINE) OPHTH SOLN 5% 30 ML OP ONE (06:15)
[2021-05-03] MEDS ORDERED: LIDOCAINE PF 1% 2 ML VIAL IR PRN (06:15)
[2021-05-03] MEDS ORDERED: TIMOLOL MALEATE 0.5% 5 ML (TIMOPTIC) BTL OU PRN (06:15)
[2021-05-03] MEDS ORDERED: MOXIFLOXACIN OPHTH SOLN 5 MG/ML 0.3 ML SYRINGE OP ONE (06:15)
[2021-05-03] MEDS: TETRACAINE 0.5% OPHTH SOLN 4 ML BTL (SINGLE DOSE ONLY) OU PRN ×4 (06:21→06:39)
[2021-05-03] MEDS: TROPICAMIDE 1% OPH SOLN (MYDRIACYL) 15 ML BTL OP SCH ×3 (06:27→06:39)
[2021-05-03] MEDS: PHENYLEPHRINE 10% OPHTH (NEO-SYN) 5 ML BTL OU SCH ×3 (06:27→06:39)
[2021-05-03 06:36] VITALS: BP 148/90
[2021-05-03] MEDS ORDERED: MIDAZOLAM 2 MG/2 ML (VERSED) VIAL ONE (07:24)
--- NOTE | 2021-05-03 07:26 | Ophthalmologist Pre-Op Note ---
Pre-Operative Progress Note H&P Reviewed The H&P was reviewed, patient examined and no changes noted. Date H&P Reviewed: May 03, 2021 Time H&P Reviewed: 07:26 Pre-Op Dx Cataract, Left Eye TAYLOR ROJAS MD May 03, 2021 07:26
[2021-05-03] MEDS ORDERED: acetaZOLAMIDE ER 500 MG CAP (DIAMOX SEQUELS) PO ONE (07:30)
--- NOTE | 2021-05-03 07:44 | Ophthalmology Operative Report ---
Cataract removal/placement IOL PREOPERATIVE DIAGNOSIS: Cataract Left Eye POSTOPERATIVE DIAGNOSIS: Cataract Left Eye PROCEDURE: Cataract removal and placement of posterior chamber implant, left eye SURGEON: Twan Rojas ANESTHESIA: Topical with sedation COMPLICATIONS: None ESTIMATED BLOOD LOSS: Minimal DESCRIPTION OF PROCEDURE: After proper informed consent was obtained, the patient, a 60 female, was taken to the Operating Room and the left eye was anesthetized with tetracaine. The left eye was then prepped and draped in the usual manner. A wire lid speculum was placed. A paracentesis was made at the left hand position. Preservative free lidocaine was injected into the anterior chamber followed by viscoelastic. A clear corneal incision was made in the temporal position. A capsulorrhexis was preformed and the central nuclear and cortical material were removed. The posterior capsule was polished and an Gregg 17.0 [id number] was placed into the capsular bag. The residual viscoelastic was aspirated and balanced saline solution was injected into the anterior chamber. Moxifloxacin was injected into the anterior chamber. The wound was checked and found to be water tight. The patient tolerated the procedure well without complications. TWAN ROJAS MD May 03, 2021 07:44
[2021-05-03 07:50] VITALS: BP 129/86
--- NOTE | 2021-05-03 11:32 | Anesthesia-General Post-Op ---
MAC Patient Condition Mental Status/LOC: Same as Preop Cardiovascular: Satisfactory Nausea/Vomiting: Absent Respiratory: Satisfactory Pain: Controlled Complications: Absent Post Op Complications Complications None Follow Up Care/Instructions Patient Instructions None needed. Anesthesiology Discharge Order Discharge Order Patient is doing well, no complaints, stable vital signs, no apparent adverse anesthesia problems. No complications reported per nursing. BEULAH YOUNG CRNA May 03, 2021 11:32
== END 2021-05-03 07:51 | disposition home or self-care (01) ==
LOC: SDC 05:59
PROVIDERS: ATTEND Specialist
DX: E11.36 Type 2 diabetes mellitus with diabetic cataract (principal); H25.9 Unspecified age-related cataract; I10 Essential (primary) hypertension; E78.00 Pure hypercholesterolemia, unspecified; E03.9 Hypothyroidism, unspecified; F41.9 Anxiety disorder, unspecified; Z86.73 Personal history of transient ischemic attack (TIA), and cerebral infarction without residual deficits; Z79.899 Other long term (current) drug therapy; Z79.82 Long term (current) use of aspirin; Z79.02 Long term (current) use of antithrombotics/antiplatelets; Z79.890 Hormone replacement therapy; Z85.820 Personal history of malignant melanoma of skin
CPT/HCPCS: 66984; V2632

== ENCOUNTER → 2021-09-25 | Outpatient (CLI) | payer MEDICARE, OTHER ==
[~2021-09-25] VITALS: Ht 167 cm; Wt 75.0 kg
[~2021-09-25] MED LIST changes: +CATHETER FLUSH 10 ML SYR IVP PRN; +REGADENOSON 0.4 MG/5 ML SYR (LEXISCAN) IV ONE
[2021-09-25 08:56] VITALS: BP 156/96
[2021-09-25 09:02] VITALS: BP 165/97
--- NOTE | 2021-09-25 11:18 | Cardiology Stress Test Report ---
Stress Test Report Date of Procedure/Referring: Date of Procedure: Sep 25, 2021 PCP Ashley Curran MD Admitting Physician Admitting Physician: Attending Physician: Misa Green Indications: HTN Baseline Heart Rate: 73 Baseline Blood Pressure: Blood Pressure Systolic: 165 Blood Pressure Diastolic: 97 Baseline Vitals Vital Signs Date Time Temp Pulse Resp B/P (MAP) Pulse Ox O2 Delivery O2 Flow Rate FiO2 09/25/21 08:56 69 17 156/96 (116) 98 Room Air Baseline EKG: Baseline EKG: NSR Summary After explaining the procedure to the patient, she signed a consent and then brought to the stress nuclear laboratory. Patient received 0.4 mg Lexiscan for stress test, ECG, heart rate and blood pressure were monitored continuously. Resting and stress dose of radio tracer were injected, imaging was acquired and reviewed in short axis, horizontal long axis and vertical long axis views. TID: 1.1 SSS: 0 SDS: 0 EF: 80 1. Patient tolerated Lexiscan well 2. No significant ischemia or infarction on SPECT images 3. Small left ventricular size, ejection fraction 80% Copy Copies To 1: ASHLEY CURRAN MD, BASHAR J MD Sep 25, 2021 11:18
== END ==
LOC: CARD 07:30
PROVIDERS: ATTEND Physician Assistant
DX: I10 Essential (primary) hypertension (principal)
CPT/HCPCS: 78452; 93017; A9502

== ENCOUNTER → 2022-01-14 | Outpatient (CLI) | payer MEDICARE, OTHER ==
[~2022-01-14] MED LIST changes: -CATHETER FLUSH 10 ML SYR IVP PRN; +POTA-177 PO; -POTA10TA37 PO; -REGADENOSON 0.4 MG/5 ML SYR (LEXISCAN) IV ONE
--- NOTE | 2022-01-14 12:21 | Diagnostic Imaging Report ---
INDICATION: 61-year-old acentrically postmenopausal female COMPARISON: None available FINDINGS: AP Spine L1-L4: [BMD (g/cm2): 1.459] [T-Score: 2.2] [Z-Score: 2.9] [BMD Previous: na] [BMD % Change: na] LT Hip Neck: [BMD (g/cm2): 0.947] [T-Score: -0.7] [Z-Score: 0.3] LT Hip Total: [BMD (g/cm2):1.021] [T-Score:0.1] [Z-Score: 0.7] [BMD Previous: na] [BMD % Change: na] RT Hip Neck: [BMD (g/cm2):1.023] [T-Score:-0.1] [Z-Score:0.8] RT Hip Total: [BMD (g/cm2):1.052] [T-score:0.4] [Z-Score:0.9] [BMD Previous:na] [BMD % Change:na] *Indicates significant change from prior examination based on 95% confidence level. World Health Organization criteria for BMD interpretation classify patients as Normal (T-score at or above -1.0), Osteopenic (T-score between -1.0 and -2.5) or Osteoporotic (T-score at or below -2.5). LIMITATIONS AND MODIFICATION: None. FRACTURE RISK (FRAX SCORE): The ten year probability of (%): Major Osteoporotic Fracture: [na] Hip Fracture: [na] IMPRESSION: 1. Normal bone mineral density. 2. Baseline examination. 3. See below National Osteoporosis Foundation guidelines on when to potentially initiate pharmacologic therapy. Based on the National Osteoporosis Foundation Guidelines, pharmacologic treatment should be initiated in any of the following, unless clinical conditions suggest otherwise: * Any patient with prior fragility fracture of the hip or vertebrae. A spine fracture indicates 5X risk for subsequent spine fracture and 2X risk for subsequent hip fracture. * Osteoporosis (T-score <-2.5). * Postmenopausal women and men age 50 and older with low bone mass/osteopenia (T-score between -1.0 and -2.5) by DXA and 10-year major osteoporotic fracture greater than 20% or a 10-year probability of hip fracture greater than 3%. These fracture risks are supplied above in the FRAX score, if applicable. * Clinician judgement and/or patient preferences may indicate treatment for people with 10-year fracture probabilities above or below these levels. Dictated by: Dictated on workstation # [id number]
--- NOTE | 2022-01-15 12:24 | Diagnostic Imaging Report ---
INDICATION: Routine screening. COMPARISON: 12/04/2020 and 11/25/2019. TECHNIQUE: 2D and 3D bilateral screening mammography was performed with CAD. FINDINGS: Scattered fibroglandular densities are identified bilaterally. No mass or malignant-appearing microcalcifications are seen. The axillae are unremarkable. IMPRESSION: No mammographic features suspicious for malignancy are identified. ACR BI-RADS Category 1: Negative. Result letter will be mailed to the patient. Note: At least 10% of breast cancer is not imaged by mammography. Dictated by: Dictated on workstation # [id number]
== END ==
LOC: RAD 08:30
PROVIDERS: ATTEND Family Medicine
DX: Z12.31 Encounter for screening mammogram for malignant neoplasm of breast (principal); Z78.0 Asymptomatic menopausal state
CPT/HCPCS: 77063; 77067; 77080

== ENCOUNTER 2022-12-31 05:36 | Outpatient (CLI) | payer MEDICARE, OTHER ==
[~2022-12-31] VITALS: Ht 167.6 cm; Wt 82.7 kg
[~2022-12-31 05:36] MED LIST changes: +CLOP-31 PO; -CLOP75TA69 PO; -LOSA100T57 PO; +LOSA100T58 PO
[2022-12-31] MEDS ORDERED: ATOR80TA76 PO (08:58)
[2022-12-31] MEDS ORDERED: INSU100V46 SQ (08:58)
== END 2022-12-31 09:18 | disposition home or self-care (01) ==
LOC: PREOP 05:36
PROVIDERS: ATTEND Surgery
DX: Z01.818 Encounter for other preprocedural examination (principal)

== ENCOUNTER 2023-01-07 10:58 | Day surgery (SDC) | payer MEDICARE, OTHER ==
--- NOTE | 2022-12-30 21:59 | HISTORY AND PHYSICAL ---
DATE OF SERVICE: 01/07/2023 ATTENDING PRIMARY CARE PHYSICIAN: Dr. Eleonora Curran. INDICATION: The patient is a 62-year-old female who is known to us. She was seen in October of 2014 for an appendagitis. She was treated conservatively at that time with antibiotics. On today's visit, she reports she is in need of a screening colonoscopy. She reports her last one was 7-8 years ago, which she reports was normal. She does report a family history of colon cancer with her father having the disease and was diagnosed around the age of 55 years of age. She does report occasional episodes of bright red blood in her stool as well as alternating episodes of diarrhea and constipation occasionally. She denies any abdominal pain. MEDICAL HISTORY: Stroke in 2017, hypertension, insulin-dependent diabetes mellitus, anxiety, depression, hypercholesterolemia, benign thyroid mass in 2014, morbid obesity, history of melanoma of the abdomen in 2005. SURGICAL HISTORY: Laparoscopic cholecystectomy in 1996, partial hysterectomy 2002, complete thyroidectomy 2014, laparoscopic gastric sleeve resection in 2014, bilateral rotator cuff repair in 2016, bilateral trigger finger release and Dupuytren's contracture in 2021 and 2022, excision of melanoma in 2005. ALLERGIES: NO KNOWN DRUG ALLERGIES. MEDICATIONS: PreserVision, Cequa, amlodipine, Ozempic, aspirin 81 mg daily, potassium chloride ER 10 mEq, Plavix 75 mg, hydrochlorothiazide 25 mg, losartan potassium 100 mg, Lyumjev as directed, atorvastatin 80 mg daily, duloxetine 20 mg, metoprolol ER 100 mg daily, Synthroid 88 mcg daily. SOCIAL HISTORY: Negative for tobacco, smoke. [ ] alcohol. FAMILY HISTORY: Mother, diabetes, colon cancer. Mother, diabetes, hypertension. Paternal grandfather, diabetes, hypertension, stroke. Maternal grandmother, diabetes, hypertension, myocardial infarction. Paternal grandmother, hypertension, breast cancer. Maternal grandfather, hypertension, lung cancer. Siblings, hypertension, myocardial infarction. VITAL SIGNS: Blood pressure is 116/68, current weight is 182.4 pounds at 5 feet 6 inches with a body mass index of 29.4. REVIEW OF SYSTEMS: Well-nourished female in no acute distress. She is not experiencing any shortness of breath or difficulty breathing. No chest pain, palpitations or diaphoresis. No nausea, vomiting or abdominal pain. Does report alternating episodes of diarrhea and constipation as well as occasional episodes of bright red blood in her stool. No fever or chills. No recent inadvertent weight loss. All other review of systems negative. PHYSICAL EXAM: CHEST: Clear. Good breath sounds bilaterally. HEART: Regular. No murmurs. EXTREMITIES: No lower extremity edema. Negative Homans sign. HEENT: No scleral icterus. No cervical lymphadenopathy. ABDOMEN: Soft, nontender, nondistended. SKIN: Warm, dry and pink. NEUROLOGIC: Awake, alert and oriented x3. ASSESSMENT AND PLAN: A 62-year-old female who is in need of a screening colonoscopy. At this time, we will proceed with scheduling her for a screening colonoscopy. Job ID: [id number] DocumentID: [id number] Dictated Date: 12/30/2022 19:04:52 Tank Welder Date: 12/30/2022 21:57:00 Dictated By: CAROL CROOK APRN
[~2023-01-07] VITALS: Ht 167.6 cm; Wt 82.7 kg
[~2023-01-07 10:58] MED LIST changes: +INSU100V46 SQ
[2023-01-07] MEDS ORDERED: LACTATED RINGERS 1,000 ML 1,000 ML IV STA (11:24)
[2023-01-07] MEDS ORDERED: LIDOCAINE JELLY 2% 6 ML SYRINGE MM PRN (11:30)
[2023-01-07 11:39] VITALS: BP 129/78
[2023-01-07] MEDS ORDERED: ONDANSETRON 4 MG ORAL DISSOLVE TABLET PO PRN (12:00)
[2023-01-07] MEDS ORDERED: ONDANSETRON INJECTION 4 MG/2 ML (SDV) IVP PRN (12:00)
--- NOTE | 2023-01-07 12:00 | Progress Note-Pre Operative ---
Pre-Operative Progress Note Date of Available H&P: Jan 07, 2023 Date H&P Reviewed: Jan 07, 2023 Time H&P Reviewed: 12:00 History & Physical: No changes noted Pre-Operative Diagnosis: screening colo/FH colon ca REBEL DAN MD Jan 07, 2023 12:00
--- NOTE | 2023-01-07 12:01 | Discharge Inst-Surgical ---
D/C Lap Instructions-NI Follow Up Activity as tolerated High Fiber Diet 25g or more per day Avoid Alcohol, Caffeine, Spicy [place] and Acid foods. Drink 64 fluid oz or more of fluids per day. Symptoms to Report: Fever over 101 degree F, Nausea/Vomiting If any problems/questions: Contact your physician or go to Emergency Room REBEL DAN MD Jan 07, 2023 12:01
[2023-01-07] MEDS ORDERED: MIDAZOLAM INJ 2 MG/2 ML VIAL ONE (12:48)
[2023-01-07] MEDS ORDERED: LIDOCAINE JELLY 2% 6 ML SYRINGE ONE (13:01)
[2023-01-07] MEDS ORDERED: proPOfol INJECTION 200 MG/20 ML VIAL IV ONE (13:36)
[2023-01-07 13:42] VITALS: BP 90/54
[2023-01-07 13:47] VITALS: BP 90/53
[2023-01-07 13:50] VITALS: BP 90/53
--- NOTE | 2023-01-07 14:01 | Progress Note-Post Operative ---
Post-Operative Progess Note Surgeon (s)/Hasher Machine Operator (s) Surgeon REBEL DAN MD Hasher Machine Operator: none Pre-Operative Diagnosis screening colo/FH colon ca Post-Operative Diagnosis mild chronic stage 2 ext and int hemorrhoids, mild sigmoid diverticulosis. small ascending colon polyp(3mm) Procedure & Operative Findings Date of Procedure 01/07/23 Procedure Performed/Findings colonoscopy with bx. Anesthesia Type mac Estimated Blood Loss Estimated blood loss (mL): minimal Specimens/Packing Specimens Removed asc colon polyp REBEL DAN MD Jan 07, 2023 14:01
[2023-01-07 14:20] VITALS: BP 107/67
[2023-01-07 14:40] VITALS: BP 107/67
--- NOTE | 2023-01-07 14:51 | Anesthesia-General Post-Op ---
MAC Patient Condition Mental Status/LOC: Same as Preop Cardiovascular: Satisfactory Nausea/Vomiting: Absent Respiratory: Satisfactory Pain: Controlled Complications: Absent Post Op Complications Complications None Follow Up Care/Instructions Patient Instructions None needed. Anesthesiology Discharge Order Discharge Order Patient is doing well, no complaints, stable vital signs, no apparent adverse anesthesia problems. No complications reported per nursing. DULCE CORONA CRNA Jan 07, 2023 14:51
--- NOTE | 2023-01-07 21:06 | OPERATIVE REPORT ---
DATE OF SERVICE: 01/07/2023 ATTENDING PRIMARY CARE PHYSICIAN: Dr. Eleonora Curran. PREOPERATIVE DIAGNOSES: Screening colonoscopy, family history of colon cancer. POSTOPERATIVE DIAGNOSES: Mild chronic stage II, external and internal hemorrhoids, mild sigmoid diverticulosis. Small ascending colonic polyp, 3 mm in size. PROCEDURE: Colonoscopy with polypectomy with hot biopsy forceps. SURGEON: Rebel Dan MD ANESTHESIA: Monitored anesthesia care. ESTIMATED BLOOD LOSS: Minimal. FINDINGS: Mild chronic stage II, external and internal hemorrhoids, mild sigmoid diverticulosis. Small ascending colonic polyp, 3 mm in size. DISPOSITION: The patient tolerated the procedure well. INDICATIONS: The patient is a 62-year-old female known to us. She is in need of a screening colonoscopy with her last one being done approximately 7-8 years ago. She does report a family history of colon cancer with her father being diagnosed with the disease at around age 55 years of age. She states for the most part she is doing well, does report some intermittent mild episodes of diarrhea and constipation and sometimes with constipation, she will notice a small amount of self-limited blood with her stools. DESCRIPTION OF PROCEDURE: The patient was brought to the endoscopy suite and laid in the left lateral decubitus position. After adequate IV pain and sedative medications and monitored anesthesia care, a digital rectal examination was performed. Mild chronic stage II, external and internal hemorrhoids were identified, not actively edematous nor inflamed and no bleeding. Normal sphincter tone was felt and there were no palpable masses. The endoscope was then intubated into the anus, rectum gently insufflated. The endoscope was then advanced through the valves of [place] of the rectum with no polyps or any neoplasms identified. Through the sigmoid colon, mild sigmoid diverticulosis was identified. The endoscope was then advanced to the remainder of the descending, transverse and ascending colon. At the ascending colon, a small polyp approximately 3 mm in size was identified. This was biopsied and destroyed with forceps and electrocautery with visualization of good hemostasis. The cecum was normal. The endoscope was then slowly withdrawn while taking a second look and suctioning of residual air with no additional findings. The patient tolerated the procedure well. We will recommend the necessary lifestyle and dietary accommodation including high-fiber diet with the addition of a fiber supplement, which should equal or exceed 25 grams daily to promote soft consistency stools on a daily basis. The polyp is most likely a benign hyperplastic polyp; however, due to her first-degree family history of colon cancer, we will recommend a followup colonoscopy in approximately 5 years. Job ID: [id number] DocumentID: [id number] Dictated Date: 01/07/2023 13:43:06 Bmw Service Technician Date: 01/07/2023 21:04:00 Dictated By: REBEL DAN MD
== END 2023-01-07 14:40 | disposition home or self-care (01) ==
LOC: ENDO 10:58
PROVIDERS: ATTEND Surgery
DX: Z12.11 Encounter for screening for malignant neoplasm of colon (principal); K64.1 Second degree hemorrhoids; K64.4 Residual hemorrhoidal skin tags; K57.30 Diverticulosis of large intestine without perforation or abscess without bleeding; D12.2 Benign neoplasm of ascending colon; E66.01 Morbid (severe) obesity due to excess calories; Z68.29 Body mass index [BMI] 29.0-29.9, adult; Z98.84 Bariatric surgery status; Z80.0 Family history of malignant neoplasm of digestive organs